=== PATIENT | male | born 1945 | race Caucasian/White ===

== ENCOUNTER → 2018-04-05 12:44 | Outpatient (BNVA) | payer MEDICARE, BC, SELFPAY | PROVIDERS: PCP Family Medicine; Visit Provider Urology | DX: R35.0 Frequency of micturition (principal); N40.1 Benign prostatic hyperplasia with lower urinary tract symptoms | CPT/HCPCS: 99213 ==

== ENCOUNTER 2018-04-12 07:41 | Outpatient (CLI) | payer MEDICARE, BC, SELFPAY ==
[2018-04-15 10:02] LABS: PSA, Diagnostic 3.3 ng/ml (0-6.5)
== END 2018-04-12 08:01 ==
PROVIDERS: PCP Family Medicine; Visit Provider Urology
DX: N40.1 Benign prostatic hyperplasia with lower urinary tract symptoms (principal); N13.8 Other obstructive and reflux uropathy
CPT/HCPCS: 36415; 84153

== ENCOUNTER → 2019-04-11 10:15 | Outpatient (BNVA) | payer MEDICARE, BC, SELFPAY | PROVIDERS: PCP Family Medicine; Referring Provider Family Medicine; Visit Provider Urology | DX: R35.0 Frequency of micturition (principal) | CPT/HCPCS: 99213 ==

== ENCOUNTER 2019-07-15 08:40 | Outpatient (CLI) | payer MEDICARE, BC, SELFPAY ==
[2019-07-15 10:53] LABS: Calculated LDL 67 mg/dL (<100); Cholesterol 131 mg/dL (<200); HDL Cholesterol 37 mg/dL (40-60); Triglyceride 139 mg/dL (<150)
== END 2019-07-15 09:00 ==
PROVIDERS: PCP Family Medicine; Visit Provider Family Medicine
DX: E78.5 Hyperlipidemia, unspecified (principal)
CPT/HCPCS: 36415; 80061

== ENCOUNTER 2019-09-16 01:36 | Outpatient (CLI) | payer MEDICARE, BC, SELFPAY ==
--- NOTE | 2019-09-16 06:45 | DI.CTLCSR_ITS ---
EXAM: CT CHEST LUNG CANCER SCREEN CLINICAL HISTORY: The patient reportedly has a History of Smoking 30 pack years and presently smokes or has quit the past 15 years. TECHNIQUE: Imaging Protocol: Axial computed tomography images with coronal and sagittal reformatted images were created and reviewed COMPARISON: CT CTA OF ABDOMEN AND PEL from 07/30/2015 FINDINGS: Tracheobronchial tree: Patent where visualized. Mediastinum and Lynn: No dominant adenopathy or fluid collection. Calcified lymph nodes are seen in t he mediastinum suggesting prior granulomatous disease. Pulmonary parenchyma: Mild centrilobular emphysematous changes are present. Two noncalcified pulmona ry nodules are seen. The smaller measures 5 mm and is in the right upper lobe. The larger is in the right lower lobe and measures 0.6 cm. No focal consolidating infiltrates are present. Lung Nodules: See above. Pleura: No effusion or pneumothorax. Heart: The heart is not dilated. Moderate coronary artery calcifications are seen. No significant pe ricardial effusion. Aorta: Thoracic aorta non-dilated.Atherosclerosis. Upper abdomen: Unremarkable. Bones: No acute abnormality. Soft Tissues: Unremarkable. IMPRESSION: Right upper and right lower lobe pulmonary nodules. Lung RADS Cat 3 - Probably Benign: Probably benign finding(s) - short term follow-up suggested; inclu de nodules with a low likelihood of becoming a clinically active cancer. Lung-RADS 1.0 CATEGORIES: Category 0 - Prior chest CT exam(s) being located for comparison. Category 1 - Annual screening in 12 months. No nodules or definitely benign nodules. Category 2 - Annual screening in 12 months. Benign appearance. Nodules with low likelihood of becomin g active cancer. Category 3 - 6-month follow-up. Probably benign. Short-term follow-up suggested. Nodules with low lik elihood of becoming active cancer. Category 4A - 3-month follow-up and CT/PET if >8 mm in size. Suspicious finding. Findings which requi re additional testing. Category 4B - Findings which require additional testing and tissue sampling. Suspicious finding. C Added to Any of the Above - History of prior lung cancer screening. S Added to Any of the Above - Significant unexpected other finding. RADIATION DOSE DELIVERED: 78.58mGy.cm Total DLP DATA REPOSITORY: All CT scans at this facility are submitted to the National Radiology Data Registry (NRDR) Dose Index Registry (DIR) with the [employer] ([employer]). RADIATION OPTIMIZATION: All CT scans at this facility use at least one of these dose optimization te chniques: automated exposure control; mA and/or kV adjustment per patient size (includes targeted exa ms where dose is matched to clinical indication); or iterative reconstruction.
== END 2019-09-16 01:56 ==
PROVIDERS: PCP Family Medicine; Visit Provider Family Medicine
DX: Z12.2 Encounter for screening for malignant neoplasm of respiratory organs (principal); Z87.891 Personal history of nicotine dependence; J43.8 Other emphysema; R91.8 Other nonspecific abnormal finding of lung field
CPT/HCPCS: G0297

== ENCOUNTER → 2019-12-18 13:24 | Outpatient (BNVA) | payer MEDICARE, BC, SELFPAY | PROVIDERS: PCP Family Medicine; Referring Provider Family Medicine; Visit Provider Physical Therapy Assistant | DX: R69 Illness, unspecified (principal) ==

== ENCOUNTER → 2020-01-30 10:20 | Outpatient (BNVA) | payer MEDICARE, BC, SELFPAY | PROVIDERS: PCP Family Medicine; Referring Provider Family Medicine; Visit Provider Physical Therapy Assistant | DX: Z12.11 Encounter for screening for malignant neoplasm of colon (principal); Z86.010 Personal history of colon polyps; I10 Essential (primary) hypertension ==

== ENCOUNTER 2020-02-13 08:14 | Day surgery (SDC) | payer MEDICARE, BC, SELFPAY ==
[2020-02-13 08:22] VITALS: BP 149/77; PULSE 56; RESP 18; TEMP 36.6; O2SAT 95
[2020-02-13] MEDS: Lactated Ringers 1,000 ML 80 ML IV (08:55)
--- NOTE | 2020-02-13 09:54 | W.PM.DSUDISC ---
Discharge Plan Disposition Patient Disposition: HOME Condition: Good Discharge Details Reason For Visit: Colonoscopy Attending Provider: Peri Parra Primary Care Provider: Tr Hendrix Home Meds and New Rx's Prescriptions: Continued amlodipine 5 mg tablet 5 mg PO DAILY Qty: 90 RF: 3 acetaminophen [Tylenol] 325 mg tablet 325 mg PO Q6H PRNRF: 0 ibuprofen 600 MG tablet 600 mg PO TID PRNRF: 0 ketoconazole 120 ML shampoo 120 ml Topical PRN PRNRF: 0 terazosin 5 mg capsule 5 mg PO HS Qty: 90 RF: 4 atorvastatin 40 mg tablet 40 mg PO DAILY 90 Days Qty: 90 RF: 3 oxybutynin chloride 5 mg tablet extended release 24hr 5 mg PO DAILY Qty: 90 RF: 4 Discontinued polyethylene glycol 3350 17 gram/dose powder 238 g PO ONCE Qty: 238 RF: 0 bisacodyl [Dulcolax (bisacodyl)] 5 mg tablet,delayed release (DR/EC) 5 mg PO ONCE Qty: 4 RF: 0 Discharge Instructions Additional Instructions: Findings: A small rectal polyp was removed. Random biopsies were taken throughout the colon to evaluate for microscopic colitis. My office will contact you with biopsy results. Follow up: Plan for a colonoscopy in 5 years depending on biopsy results. Make sure to take in 30 grams of fiber daily. Metamucil or Benefiber are good supplements. Take with enough fluids. If the fiber does not improve your leakage, consider referral to a colorectal surgeon for further evaluation. Please call if you develop: fevers >101.5 Nausea or Vomiting Abdominal pain that is not transient DAY SURGERY UNIT POST COLONOSCOPY INSTRUCTIONS 1. Because there will be medication in your system for the next 24 hours, you may feel a little sleepy. Your coordination will be affected. Therefore: a. Do not drive or operate dangerous equipment for 24 hours. b. Do not drink alcohol beverages for 24 hours (not even beer). c. Plan to go home and rest for the day. 2. Generally there are no restrictions on your activity after a day or so has gone by, but you may feel a bit fatigued for a few days. 3 After you arrive home you may have a light meal and return to a normal diet as you can tolerate it without feeling sick to your stomach. 4. After surgery, you may feel pain or discomfort. This should be only transient, but if it persists please contact your doctor. 5. If there are any questions regarding the findings of your procedure, please feel free to contact your doctor. 6. If you are unable to contact your doctor with a problem, contact the hospital at [phone]. 7. Continue all your regular medications unless directed otherwise. I understand the above instructions and have no questions. Signature of Patient or Responsible Adult Escort Date/Time Name of Responsible Adult Escort Signature of Nurse Date/Time Activity:: Activity as Tolerated Diet:: As Tolerated Discharge Orders Discharge Orders: Discharge Order (Routine); Ordered 02/13/20 Ordered By: Peri Parra DS: Diagnosis Discharge Diagnosis (1) Rectal polyp: Status: Acute
--- NOTE | 2020-02-13 09:55 | W.COLOREPORT ---
Date of service: 02/13/20 Time of Service: 10:49 Colonoscopy Report Date of procedure: 02/13/20 Pre-op diagnosis general: History of colon polyps Post-op diagnosis procedure note: other (Diverticulosis, rectal polyp) Procedure: Colonoscopy with random biopsies and cold forceps polypectomy Surgeon: Peri Parra Anesthesia proc note operative: MAC Indications: This 74 year old man presents for colonoscopy. His prior in 2016 showed a sessile serrated adenoma. He notes stool leakage over the course of the day after a fairly normal am BM. No FH colon cancer. Procedure Description: The patient was placed in the left Maldonado position. Propofol was titrated to sedation. Digital rectal examination revealed no abnormalities. The scope was advanced to the cecum without difficulty. The ileocecal valve and appendiceal orifice were clearly identified. The prep was good. The scope was slowly withdrawn over the course of greater than 6 minutes. Random biopsies were taken throughout to evaluate for microscopic colitis. No abnormalities seen in the ascending, transverse, descending, sigmoid colon with the exception of mild diverticulosis. In the rectum 8mm polyp was removed with the cold forceps. No other abnormality was noted on retroflexed view. The internal hemorrhoids were not prominent. The patient tolerated the procedure well and was stable to recovery. Plan for colonoscopy in 5years. He was advised to increase fiber to help stool leakage. If this is not effective, can consider referral to colorectal surgery for sphincter evaluation.
--- NOTE | 2020-02-13 10:15 | BOWEL_PTH ---
PATIENT: Storm Nolasco LOC: [facility] U#:[id number] AGE/SX: 74/M ROOM: RE02/13/[address]: Peri Parra MD : 1945 BED: DIS: 02/13/2020 SPEC #: [id number] RECD: 02/13/20 11:10 STATUS: KATHLEEN REQ #: [id number] BABAK: 02/13/20 10:[address]: Peri Parra DEPT: Surgical Specimen RECD BY: Jessica Fair ENTERED: 02/13/20 11:11 SP TYPE: Bowel OTHR DR: Tr Hendrix DO Tissues: 1 - BIOPSY BOWEL 2 - BIOPSY BOWEL Procedures: GROSS AND MICRO LEVEL 4 Comments: [id number]
[2020-02-13 11:05] VITALS: BP 123/54; PULSE 46; RESP 18; TEMP 36.4; O2SAT 96
== END 2020-02-13 11:40 | disposition home or self-care (01) ==
PROVIDERS: PCP Family Medicine; Visit Provider Surgery
PROC: 0DJD8ZZ Inspection of Lower Intestinal Tract, Via Natural or Artificial Opening Endoscopic (ICD-10-PCS; CPT 45378; principal; 2020-02-13 10:00)
DX: R19.4 Change in bowel habit (principal); Z86.010 Personal history of colon polyps; K63.5 Polyp of colon; I10 Essential (primary) hypertension; K57.30 Diverticulosis of large intestine without perforation or abscess without bleeding; K62.1 Rectal polyp
CPT/HCPCS: 45380; 88305; J2001

== ENCOUNTER 2020-03-01 01:59 | Outpatient (CLI) | payer MEDICARE, BC, SELFPAY ==
--- NOTE | 2020-03-01 06:15 | DI.NM_ITS ---
APPROVED REPORT Exam: Exercise Treadmill Patient Location: Out-Patient Room/Bed: Stress Nurse: Radha Shaw RN BMI: 30.26 Baseline Rhythm: Sinus Bradycardia, LBBB Indications: New BALDERAS, LBB, AFib. Patient also reports nonradiating 3/10 left chest pressure with acti vity. Medical History Medical History: HTN, HLD, Smoking, s/p AAA repair. Cardiac Medications: ASA. Amlodipine. Atorvastatin. Allergies: Hydrochlorothiazide, Lisinopril. Cardiac Risk Factors: FHX of CAD, HTN, Hyperlipidemia, Smoking (former) Previous Cardiac Procedures: AAA repair Pretest Chest Pain Characteristics: No chest pain Exercise History: Sedentary Physical Disabilities: None. Lung Sounds: Clear to auscultation Heart Sounds: Regular Stress Test Details Test: Exercise stress testing was performed using a Amos protocol. Nuclear Acquisition: Rest Tc-99m/Stress Tc-99m 1 day Rest Isotope: Tc-99m Sestamibi. Dose: 11 Date: 03/01/2020 Injection Time: 0845 Stress Isotope: Tc-99m Sestamibi. Dose: 38 Date: 03/01/2020 Injection Time: 1012 HR Resting HR Supine: 55 bpm Max Heart Rate (APMHR): 146 bpm Resting HR Standin bpm Target HR (85% APMHR): 124 bpm Max HR Achieved: 188 bpm % of APMHR: 128 Recovery HR: 86 bpm HR response to stress: Normal HR response to stress BP Resting BP Supine: 154/80 mmHg Resting BP Standin/76 mmHg Max BP: 178/66 mmHg Recovery BP: 148/70 mmHg BP response to stress: Normal blood pressure response to stress. ECG Resting ECG: Sinus Bradycardia, LBBB Ectopy: None. Stress ECG: Sinus Tachycardia, LBBB ST Change: unable to determine. Arrhythmia: PVCs Recovery ECG: Sinus Rhythm, LBBB Recovery ST Change: unable to determine. Recovery Arrhythmia: PVCs, Trigeminy. Clinical Reason for Termination: Target HR Achieved Stress Symptoms: Dyspnea Exercise duration: 8 min35 sec Highest Stage Reached: Stage 3: 3.4 mph at 14% grade. Exercise capacity: 10.16 METs Stress ECG Conclusion 1. She exercised for 9 minutes (10 minutes). The patient had no symptoms suggestive of ischemia. 2. The patient's baseline left bundle branch block makes the EKG portion nondiagnostic. Stress Test Summary STAGE Time (mins) Speed (mph) Grade (%) HR BP SYMPTOMS METS Supine 55 154/80 Standing 56 142/76 1 3 1.7 10 103 160/72 4.6 2 6 2.5 12 130 178/64 7 1 min recovery 158 176/62 2/10 left chest pressure 3 min recovery 120 178/66 symptoms resolved 6 min recovery 90 148/70 MPI Conclusion The patient's ejection fraction was 34% with stress. There is global hypokinesis. There is a moderate sized fixed perfusion defect at the apex without any significant evidence of isch emia. It is important to note that, there is a higher false positivity rate in those with LBBB who u ndergo stress nuclear perfusion imaging as opposed to pharmacological nuclear stress imaging. This likely represents an abnormal perfusion study. Radiologist Interpretation Radiologist Interpretation by: Mayito Carney MD Interpretation Date/Time: 03/02/2020 09:18:10
== END 2020-03-01 02:19 ==
PROVIDERS: PCP Family Medicine; Visit Provider Family Medicine
DX: I44.7 Left bundle-branch block, unspecified (principal); I48.91 Unspecified atrial fibrillation; R06.09 Other forms of dyspnea; R07.89 Other chest pain; Z82.49 Family history of ischemic heart disease and other diseases of the circulatory system; I10 Essential (primary) hypertension; E78.5 Hyperlipidemia, unspecified; Z87.891 Personal history of nicotine dependence
CPT/HCPCS: 78452; 93016; 93018; 93017

== ENCOUNTER 2020-03-15 08:14 | Emergency (ER) | payer MEDICARE, BC, SELFPAY ==
[2020-03-15] VITALS (34 sets, daily range): BP systolic 133–161; BP diastolic 55–87; PULSE 51–68; RESP 13–25; TEMP 36.4–36.9; O2SAT 93–98
--- NOTE | 2020-03-15 08:15 | RT.EKG_ITS ---
APPROVED REPORT Exam: Resting ECG Patient Location: E HR:61 bpm ECG Measurements Heart Rate 61 AXIS NH 183 P 34 QRSd 164 QRS -11 QT 487 T 79 QTc 488 Conclusion Sinus rhythm...normal P axis, V-rate 60- 99 Ventricular premature complex...V complex w/ short R-R interval Left bundle branch block...QRSd>120, broad/notched R ST elevation secondary to IVCD...Multiple VCG criteria. Sinus. PVCs. LBBB, seen in previous EKG 02/23/20. I have reviewed and interpreted ECG and agree with software generated interpretation.
--- NOTE | 2020-03-15 08:22 | W.ED.GENAD ---
Discharge Plan Disposition Patient Disposition: [facility] Condition: Stable Discharge Details Clinical Impression: Crescendo angina Primary Care Provider: Tr Hendrix ED Provider: Yamini Dahl Home Meds and New Rx's Prescriptions: No Action amlodipine 5 mg tablet 5 mg PO DAILY Qty: 90 RF: 3 acetaminophen [Tylenol] 325 mg tablet 325 mg PO Q6H PRNRF: 0 aspirin 81 mg tablet,delayed release (DR/EC) 81 mg PO DAILY Qty: 90 RF: 3 nitroglycerin 0.4 mg tablet, sublingual 0.4 mg sublingual Q5M PRN (Reason: chest pain) Qty: 30 RF: 0 ibuprofen 600 MG tablet 600 mg PO TID PRNRF: 0 ketoconazole 120 ML shampoo 120 ml Topical PRN PRNRF: 0 terazosin 5 mg capsule 5 mg PO HS Qty: 90 RF: 4 oxybutynin chloride 5 mg tablet extended release 24hr 5 mg PO DAILY Qty: 90 RF: 4 atorvastatin 40 mg tablet 80 mg PO DAILY 90 Days Qty: 90 RF: 3 losartan 25 mg tablet 25 mg PO DAILY Qty: 90 RF: 3 Discharge Data Discharge Date/Time-TO BE ENTERED AT DEPARTURE: 03/15/20 11:20 Medical Decision Making 0830 -- 74-year-old male with a history of AAA repair, hypertension, hyperlipidemia and recently diagnosed left bundle branch block on EKG at PCP office last month presents for chest pressure at rest but worse with exertion x 24 hours EKG notes a rate of 61, sinus with PVCs and left bundle branch block but no acute change from previous. Patient had a myocardial perfusion scan on 03/01/2020 which noted: Stress ECG Conclusion 1. He exercised for 9 minutes (10 minutes). The patient had no symptoms suggestive of ischemia. 2. The patient's baseline left bundle branch block makes the EKG portion nondiagnostic. MPI Conclusion The patient's ejection fraction was 34% with stress. There is global hypokinesis. There is a moderate sized fixed perfusion defect at the apex without any significant evidence of ischemia. It is important to note that, there is a higher false positivity rate in those with LBBB who undergo stress nuclear perfusion imaging as opposed to pharmacological nuclear stress imaging. This likely represents an abnormal perfusion study. Appears consistent with unstable angina. Will give additional chewable aspirin and obtain a cardiac work-up. Will reach out to cardiology for further recommendations. 914 --discussed with Dr. Mcduffie whom patient has an appointment with next week. Agrees that patient is appropriate for transfer to [facility] for cardiac catheterization. Unclear if etiology is cardiac, but considering patient's age and risk factors, needs cardiac catheterization. 929 --discussed with [facility] cardiology who agrees that patient needs further evaluation and likely cardiac catheterization and accepts patient for transfer. Accepting physician Dr. Duarte. No recommendation for Plavix or heparin at this time unless patient's pain worsens, his troponin becomes elevated or he has EKG changes. May be a few hours until bed availability. 1100 --Repeat troponin negative. Repeat EKG unchanged. Patient reassessed and currently asymptomatic and chest pain-free at this time. Medical Records Medical records reviewed: Yes I reviewed the patient's medical records. Imaging Data Radiologic Study: Radiologist's impression: XR CHEST 2V PA LATERAL CLINICAL HISTORY: L sided chest pain, r/o acute disease TECHNIQUE: 2D digital imaging was performed. COMPARISON: CR CHEST 2 VIEWS PA,LAT from 02/04/2015 FINDINGS: MEDIASTINUM: Normal. HEART: Normal. PULMONARY VASCULATURE: Normal. LUNGS: Clear. PLEURAL SPACE: No pleural effusion or pneumothorax. BONE:Within normal limits for the patient's age. OTHER FINDINGS:Unchanged elevation of the right hemidiaphragm. IMPRESSION: No acute pulmonary findings. Lab Data Lab results reviewed: Yes I reviewed the patient's lab results. Labs: Laboratory Tests Range/Units 03/15/20 03/15/20 03/15/20 08:25 08:25 08:25 WBC (4.4-10.8) 10^3/uL 7.16 RBC (4.36-5.78) 10^6/uL 4.40 Hgb (13.5-17.5) g/dL 14.3 Hct (40.0-50.0) % 41.3 MCV (80-95) fL 93.9 MCH (27.0-33.0) pg 32.5 MCHC (32.0-36.0) % 34.6 RDW (11.8-14.1) % 12.5 Plt Count (130-400) 10^3/uL 172 MPV (8.0-11.0) fL 10.4 Immature Gran % 0.4 Neutrophils % 73.6 Lymphocytes % 16.8 Monocytes % 6.8 Eosinophils % 1.8 Basophils % 0.6 Nucleated RBC % % 0 Absolute Neutrophils (1.2-6.7) 10^3/uL 5.27 Absolute Lymphocytes (1.2-3.4) 10^3/uL 1.20 Absolute Monocytes (0.1-0.8) 10^3/uL 0.49 Absolute Eosinophils (0.0-0.7) 10^3/uL 0.13 Absolute Basophils (0.0-0.2) 10^3/uL 0.04 PT (9.3-11.0) sec 10.4 INR (0.9-1.1) 1.0 APTT (21.0-27.5) sec 22.7 Sodium (136-145) mmol/L 139 Potassium (3.5-5.1) mmol/L 4.4 Chloride (98-107) mmol/L 105 Carbon Dioxide (21.0-32.0) mmol/L 26.4 Anion Gap (3-11) mmol/L 7.6 BUN (7-18) mg/dL 18 Creatinine (0.70-1.30) mg/dL 1.11 Estimated GFR/1.73 m2 (mL/min/1.73m2) >= 60.00 Glucose (74-106) mg/dL 106 Calcium (8.5-10.1) mg/dL 8.7 Magnesium (1.8-2.4) mg/dL 2.2 Total Bilirubin (0.2-1.0) mg/dL 0.9 AST (15-37) U/L 35 ALT (16-63) U/L 29 Alkaline Phosphatase (46-116) U/L 73 Troponin I (<0.06) ng/mL < 0.05 Total Protein (6.4-8.2) g/dL 7.2 Albumin (3.4-5.0) g/dL 4.0 Range/Units 03/15/20 10:30 WBC (4.4-10.8) 10^3/uL RBC (4.36-5.78) 10^6/uL Hgb (13.5-17.5) g/dL Hct (40.0-50.0) % MCV (80-95) fL MCH (27.0-33.0) pg MCHC (32.0-36.0) % RDW (11.8-14.1) % Plt Count (130-400) 10^3/uL MPV (8.0-11.0) fL Immature Gran % Neutrophils % Lymphocytes % Monocytes % Eosinophils % Basophils % Nucleated RBC % % Absolute Neutrophils (1.2-6.7) 10^3/uL Absolute Lymphocytes (1.2-3.4) 10^3/uL Absolute Monocytes (0.1-0.8) 10^3/uL Absolute Eosinophils (0.0-0.7) 10^3/uL Absolute Basophils (0.0-0.2) 10^3/uL PT (9.3-11.0) sec INR (0.9-1.1) APTT (21.0-27.5) sec Sodium (136-145) mmol/L Potassium (3.5-5.1) mmol/L Chloride (98-107) mmol/L Carbon Dioxide (21.0-32.0) mmol/L Anion Gap (3-11) mmol/L BUN (7-18) mg/dL Creatinine (0.70-1.30) mg/dL Estimated GFR/1.73 m2 (mL/min/1.73m2) Glucose (74-106) mg/dL Calcium (8.5-10.1) mg/dL Magnesium (1.8-2.4) mg/dL Total Bilirubin (0.2-1.0) mg/dL AST (15-37) U/L ALT (16-63) U/L Alkaline Phosphatase (46-116) U/L Troponin I (<0.06) ng/mL < 0.05 Total Protein (6.4-8.2) g/dL Albumin (3.4-5.0) g/dL ECG Data Attestation: I personally reviewed and interpreted this ECG (s) as follows: Interpretation: #1 -- Rate of 61, sinus, PVCs, left bundle branch block which has been seen in previous EKG dated 02/23/2020. No significant change from previous EKG. #2 -- Rate of 52, sinus, LBBB, no acute ST elevation or depression. No acute change from previous EKG. HPI General Mode of arrival: ambulatory. Date/Time Provider Initiated Documentation: 03/15/20 08:16. Limitations to Documentation: no limitations. Information obtained by: patient. HPI Narrative: Patient is a 74-year-old male with a history of a [id number]-elen smoking history, quit in 2016, hypertension, hyperlipidemia, AAA repair within the last year, recently noted left bundle branch block on EKG with abnormal myocardial perfusion scan this month presents for constant left-sided chest pressure, worse with exertion of the past 24 hours. Patient states he has had intermittent chest pressure over the past 2 months that only occurred with exertion but states for the past 24 hours he has had constant left-sided chest pressure that is still worse with exertion but does not relieved completely with rest. He states when up and walking around his chest pressure is 5/10 and at rest is 1/10. He states the pain does improve over several minutes. He denies any other associated symptoms with his chest pressure such as fever, cough, nausea, vomiting, dizziness or known injury. He saw Dr. Hendrix last month for a follow-up for his high blood pressure and admitted that he had an episode of chest pressure and was referred for the outpatient stress test and started on aspirin, nitro and losartan. Patient states he took his baby aspirin this morning. He states he took 1 dose of sublingual nitro last evening without relief. He states he has an appointment with cardiology Dr. Mcduffie next Sunday regarding his stress test. Related Data Home Medications Medication Instructions Recorded Confirmed ibuprofen 600 mg PO TID PRN tab-cap 08/21/12 03/15/20 ketoconazole 120 ml TOPICAL PRN PRN script 05/25/17 03/15/20 acetaminophen 325 mg tablet 325 mg PO Q6H PRN 10/07/18 03/15/20 amlodipine 5 mg tablet 5 mg PO DAILY #90 tab 04/14/19 03/15/20 terazosin 5 mg capsule 5 mg PO HS #90 tab-cap 06/20/19 03/15/20 oxybutynin chloride 5 mg 5 mg PO DAILY #90 tab 10/21/19 03/15/20 tablet,extended release 24 hr aspirin 81 mg tablet,delayed 81 mg PO DAILY #90 tab 02/23/20 03/15/20 release nitroglycerin 0.4 mg sublingual 0.4 mg SUBLINGUAL Q5M PRN #30 tab 02/23/20 03/15/20 tablet atorvastatin 40 mg tablet 80 mg PO DAILY 90 Days #90 tab-cap 03/02/20 03/15/20 losartan 25 mg tablet 25 mg PO DAILY #90 tab 03/02/20 03/15/20 Previous Rx's Medication Instructions Recorded amlodipine 5 mg tablet 5 mg PO DAILY #90 tab 04/14/19 terazosin 5 mg capsule 5 mg PO HS #90 tab-cap 06/20/19 oxybutynin chloride 5 mg 5 mg PO DAILY #90 tab 10/21/19 tablet,extended release 24 hr aspirin 81 mg tablet,delayed 81 mg PO DAILY #90 tab 02/23/20 release nitroglycerin 0.4 mg sublingual 0.4 mg SUBLINGUAL Q5M PRN #30 tab 02/23/20 tablet atorvastatin 40 mg tablet 80 mg PO DAILY 90 Days #90 tab-cap 03/02/20 losartan 25 mg tablet 25 mg PO DAILY #90 tab 03/02/20 Allergies Allergy/AdvReac Type Severity Reaction Status Date / Time venom-honey bee Allergy Severe ANAPHALAXSI Verified 03/15/20 08:29 S hydrochlorothiazide AdvReac Unknown FELT LOUSY Verified 03/15/20 08:29 lisinopril AdvReac Unknown FELT LOUSY Verified 03/15/20 08:29 Review of Systems All systems reviewed & are unremarkable except as noted in HPI and below Constitutional Constitutional: Reports as per HPI, Denies chills and Denies fever(s) Eyes Eyes: Denies blurry vision ENT Ears, Nose, Mouth, and Throat: Denies dizziness, Denies sore throat and Denies throat swelling Cardiovascular Cardiovascular: Reports chest pain and Denies dyspnea Respiratory Respiratory: Denies cough and Denies dyspnea Gastrointestinal Gastrointestinal: Denies abdominal pain, Denies diarrhea and Denies vomiting Genitourinary Genitourinary: Denies hematuria and Denies dysuria Musculoskeletal Musculoskeletal: Denies back pain and Denies numbness Integumentary/Breasts Skin/Breast: Denies lesions and Denies rash Neurologic Neurologic: Denies dizziness, Denies localized weakness and Denies numbness Allergic/Immunologic Allergic/Immunologic: Denies throat swelling [facility] Medical History (Updated 03/15/20 @ 09:49 by Yamini Dahl DO) Ex-smoker 30+ pack year history, quit in 2016 Left bundle branch block By EKG Pulmonary nodules Low dose screen 09/16 Surgical History History of colonoscopy S/P AAA repair (05/2019) Vascular [facility] [place] Aortic and bilateral iliac artery endarterectomies Family History Mother Essential hypertension Neoplasm Lung cancer Father , Cardiac Issue at age 61. CHF (congestive heart failure) Brother Neoplasm Brother Neoplasm Social History (Updated 01/30/20 @ 11:24 by NIHARIKA Pruitt) Smoking/Tobacco Use Status: Former Tobacco Use Quit Date: 07/30/15 Tobacco: How many years used: 50 Smoking risk assessment performed?: Yes Alcohol Intake: current Alcohol Intake frequency: 0-2 drinks per day Alcohol type: wine Drug use: Occasionally Substance use type: marijuana Household members: none Housing: house Number of Children: 2 Communication Needs: Corrective Lenses current occupation: retired What is your relationship status?: Panel score (0-1 are the most socially isolated patients): 0 What type of physical activity do you participate in: irregular exercise Duration: 30-45 minutes/day Frequency: 1-2 times per week Seatbelt use: always Drive 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 or ride w/intox 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 Working smoke detector in home: Yes Carbon monox detector in home: Yes Do you feel safe at home: Yes Do you feel safe in your relationship?: Yes Exam Const General: cooperative, healthy appearing and no acute distress HENMT Head: normal to inspection Face and sinus: normal facial exam Eyes General: appearance normal, both eyes and all related structures EOM: EOM intact bilaterally Neck Neck: normal visual inspection and No submandibular swelling Lymphatic: no lymphadenopathy noted Chest Chest: normal inspection of the chest and no tenderness Resp Effort & Inspection: normal respiratory effort and able to speak in complete sentences Auscultation: clear to auscultation bilaterally Cardio Rate: regular rate Rhythm: regular rhythm GI Inspection: normal to inspection Palpation: soft, not firm, not rigid and nontender Auscultation: normal bowel sounds Male General Exam: Yes normal external exam Back/Spine/Pelvis Thoracic/Lumbar Spine: thoracic and lumbar spine normal to inspection Pelvis: no pain with anterior-posterior compression Skin General skin exam: no rashes or lesions noted Neuro General: patient alert, patient awake and patient oriented x3 Cognition: normal cognition Speech: speech normal Motor: muscle tone normal throughout Sensory Exam: no sensory deficits noted Extrem General: normal to inspection, full ROM, capillary refill normal, no calf tenderness bilaterally and no edema Psych Appearance: grossly normal Mental Status: mental status grossly normal Speech and Movement: speech and movement normal Affect: normal affect
[2020-03-15 08:40] LABS: Abs Immature Grans 0.03 10^3/uL (0.0-0.06); Absolute Basophil Count 0.04 10^3/uL (0.0-0.2); Absolute Eosinophil Count 0.13 10^3/uL (0.0-0.7); Absolute Monocyte Count 0.49 10^3/uL (0.1-0.8); Absolute Neutrophil Count 5.27 10^3/uL (1.2-6.7); Basophils % 0.6; Eosinophils % 1.8; HCT 41.3 % (40.0-50.0); HGB 14.3 g/dL (13.5-17.5); Immature Grans % 0.4; Lymphocytes % 16.8; MCH 32.5 pg (27.0-33.0); MCHC 34.6 % (32.0-36.0); MCV 93.9 fL (80-95); MPV 10.4 fL (8.0-11.0); Monocytes % 6.8; Neutrophils % 73.6; Nucleated RBC 0 %; Platelet Count 172 10^3/uL (130-400); RDW 12.5 % (11.8-14.1); RDW-SD 43.1 fL; WBC 7.16 10^3/uL (4.4-10.8)
--- NOTE | 2020-03-15 08:45 | DI.RAD_ITS ---
EXAM: XR CHEST 2V PA LATERAL CLINICAL HISTORY: L sided chest pain, r/o acute disease TECHNIQUE: 2D digital imaging was performed. COMPARISON: CR CHEST 2 VIEWS PA,LAT from 02/04/2015 FINDINGS: MEDIASTINUM: Normal. HEART: Normal. PULMONARY VASCULATURE: Normal. LUNGS: Clear. PLEURAL SPACE: No pleural effusion or pneumothorax. BONE:Within normal limits for the patient's age. OTHER FINDINGS:Unchanged elevation of the right hemidiaphragm. IMPRESSION: No acute pulmonary findings. DATA REPOSITORY: RADIATION DOSE DELIVERED:
[2020-03-15 08:55] LABS: ALT 29 U/L (16-63); AST 35 U/L (15-37); Alkaline Phosphatase 73 U/L (46-116); Anion Gap 7.6 mmol/L (3-11); BUN 18 mg/dL (7-18); Bilirubin, Total 0.9 mg/dL (0.2-1.0); CO2 26.4 mmol/L (21.0-32.0); CREATININE 1.11 mg/dL (0.70-1.30); Calcium 8.7 mg/dL (8.5-10.1); Chloride 105 mmol/L (98-107); Glucose 106 mg/dL (74-106); Magnesium 2.2 mg/dL (1.8-2.4); Potassium 4.4 mmol/L (3.5-5.1); Sodium 139 mmol/L (136-145); Total Protein 7.2 g/dL (6.4-8.2); Troponin I < 0.05 ng/mL (<0.06)
[2020-03-15 09:05] LABS: PTT Activated 22.7 sec (21.0-27.5); Prothrombin Time 10.4 sec (9.3-11.0)
[2020-03-15] MEDS: Aspirin 81 MG CHEW 243 MG CH (09:11)
[2020-03-15] MEDS: Normal Saline Flush 10 ML SYR IVP (09:12)
--- NOTE | 2020-03-15 09:45 | RT.EKG_ITS ---
APPROVED REPORT Exam: Resting ECG Patient Location: E HR:52 bpm ECG Measurements Heart Rate 52 AXIS MT 162 P 32 QRSd 159 QRS -14 QT 500 T 32 QTc 467 Conclusion Sinus bradycardia...rate< 60 Left bundle branch block...QRSd>120, broad/notched R ST elevation secondary to IVCD...Multiple VCG criteria. LBBB. No STEMI. No acute change from previous.
[2020-03-15 11:02] LABS: Troponin I < 0.05 ng/mL (<0.06)
== END 2020-03-15 11:20 | disposition short-term general hospital (02) ==
PROVIDERS: Emergency Provider Physician Assistant; PCP Family Medicine
DX: I20.0 Unstable angina (principal); I44.7 Left bundle-branch block, unspecified; Z87.891 Personal history of nicotine dependence; I10 Essential (primary) hypertension
CPT/HCPCS: 36415; 80053; 93005; 99285; 71046; 83735; 84484; 85025; 85610; 85730; 93010

== ENCOUNTER → 2020-04-02 09:06 | Outpatient (BNVA) | payer MEDICARE, BC, SELFPAY | PROVIDERS: PCP Family Medicine; Referring Provider Family Medicine; Visit Provider Internal Medicine Cardiovascular Disease | DX: I25.10 Atherosclerotic heart disease of native coronary artery without angina pectoris (principal); I44.7 Left bundle-branch block, unspecified; I10 Essential (primary) hypertension; E78.5 Hyperlipidemia, unspecified; Z95.5 Presence of coronary angioplasty implant and graft | CPT/HCPCS: 99203; 99214 ==

== ENCOUNTER → 2020-05-11 11:20 | Outpatient (BNVA) | payer MEDICARE, BC, SELFPAY | PROVIDERS: PCP Family Medicine; Referring Provider Family Medicine; Visit Provider Nurse Practitioner Gerontology | DX: N40.1 Benign prostatic hyperplasia with lower urinary tract symptoms (principal); R35.0 Frequency of micturition | CPT/HCPCS: 99213 ==

== ENCOUNTER 2020-05-27 03:14 | Outpatient (CLI) | payer MEDICARE, BC, SELFPAY ==
[2020-05-27 09:14] LABS: Anion Gap 5.5 mmol/L (3-11); BUN 23 mg/dL (7-18); CO2 27.5 mmol/L (21.0-32.0); CREATININE 1.17 mg/dL (0.70-1.30); Calcium 8.8 mg/dL (8.5-10.1); Chloride 106 mmol/L (98-107); Glucose 97 mg/dL (74-106); Potassium 4.3 mmol/L (3.5-5.1); Sodium 139 mmol/L (136-145)
== END 2020-05-27 03:34 ==
PROVIDERS: PCP Family Medicine; Visit Provider Internal Medicine Cardiovascular Disease
DX: I50.20 Unspecified systolic (congestive) heart failure (principal)
CPT/HCPCS: 36415; 80048

== ENCOUNTER 2020-06-01 01:06 | Outpatient (CLI) | payer MEDICARE, BC, SELFPAY ==
--- NOTE | 2020-06-01 07:30 | DI.CT_ITS ---
EXAM: CT CHEST WO CLINICAL HISTORY: 6 month follow up PULMONARY NODULES, lung rads 3,R91.8 TECHNIQUE: Imaging Protocol: Axial computed tomography images with coronal and sagittal reformatted images were created and reviewed COMPARISON: CT CT CHEST LUNG CANCER SCREEN from 09/16/[address] CHEST LUNG CANCER SCREEN from 09/16/2019 FINDINGS: Tracheobronchial tree: Patent where visualized. Pulmonary parenchyma: No consolidation or dominant measurable mass. Centrilobular emphysematous biswas es are present in the lungs. Lung Nodules: There is a stable 5 mm nodule in the right upper lobe. (Series 7, image 197). The per ipheral right lower lobe nodule again measures 0.6 cm. (Series 7, image 278). No new pulmonary nodu les are present. Mediastinum and Lynn: No dominant adenopathy or fluid collection. There are calcified lymph nodes in the mediastinum consistent with prior granulomatous disease. Pleura: No effusion or pneumothorax. Heart: The heart is not dilated. Coronary artery calcification and/or stents are seen. No pericardia l effusion. Aorta: Thoracic aorta non-dilated.Atherosclerosis. Upper abdomen: Calcifications are seen in the spleen consistent with prior granulomatous disease. Soft Tissues: Unremarkable. Bones: Degenerative changes are seen in the spine. IMPRESSION: 1. Stable pulmonary nodules. 2. Centrilobular emphysema. 3. Findings of prior granulomatous disease. Lung RADS Cat 2 - Benign Appearance / Behavior: Nodules with a very low likelihood of becoming a clin ically active cancer due to size or lack of growth Lung-RADS 1.0 CATEGORIES: Category 0 - Prior chest CT exam(s) being located for comparison. Category 1 - Annual screening in 12 months. No nodules or definitely benign nodules. Category 2 - Annual screening in 12 months. Benign appearance. Nodules with low likelihood of becomin g active cancer. Category 3 - 6-month follow-up. Probably benign. Short-term follow-up suggested. Nodules with low lik elihood of becoming active cancer. Category 4A - 3-month follow-up and CT/PET if >8 mm in size. Suspicious finding. Findings which requi re additional testing. Category 4B - Findings which require additional testing and tissue sampling. Suspicious finding. C Added to Any of the Above - History of prior lung cancer screening. S Added to Any of the Above - Significant unexpected other finding. RADIATION DOSE DELIVERED: 730.56mGy.cm Total DLP 730.56mGy.cm Total DLP DATA REPOSITORY: All CT scans at this facility are submitted to the National Radiology Data Registry (NRDR) Dose Index Registry (DIR) with the [employer] (A[employer]). RADIATION OPTIMIZATION: All CT scans at this facility use at least one of these dose optimization te chniques: automated exposure control; mA and/or kV adjustment per patient size (includes targeted exa ms where dose is matched to clinical indication); or iterative reconstruction.
== END 2020-06-01 01:07 | disposition home or self-care (01) ==
LOC: DI 01:06
PROVIDERS: PCP Family Medicine; Visit Provider Family Medicine
DX: R91.8 Other nonspecific abnormal finding of lung field (principal); J43.2 Centrilobular emphysema
CPT/HCPCS: 71250

== ENCOUNTER 2020-08-27 09:00 | Outpatient (RCR) | payer MEDICARE, BC, SELFPAY | END 2020-08-27 23:59 | disposition home or self-care (01) | LOC: CR 09:00 | PROVIDERS: PCP Family Medicine; Visit Provider Family Medicine | DX: Z95.5 Presence of coronary angioplasty implant and graft (principal); Z51.89 Encounter for other specified aftercare; Z98.890 Other specified postprocedural states | CPT/HCPCS: S9472 ==

== ENCOUNTER 2020-09-14 03:26 | Outpatient (CLI) | payer MEDICARE, BC, SELFPAY ==
[2020-09-14 10:11] LABS: BUN 22 mg/dL (7-18); CREATININE 1.1 mg/dL (0.70-1.30); Calcium 8.6 mg/dL (8.5-10.1); Chloride 107 mmol/L (98-107); Glucose 110 mg/dL (74-106); Potassium 4.4 mmol/L (3.5-5.1); Sodium 143 mmol/L (136-145)
== END 2020-09-14 03:27 | disposition home or self-care (01) ==
PROVIDERS: PCP Family Medicine; Visit Provider Internal Medicine Cardiovascular Disease
DX: I50.20 Unspecified systolic (congestive) heart failure (principal)
CPT/HCPCS: 36415; 80048

== ENCOUNTER 2020-09-24 08:00 | Outpatient (RCR) | payer MEDICARE, BC, SELFPAY | END 2020-09-27 23:59 | disposition home or self-care (01) | LOC: CR 08:00 | PROVIDERS: PCP Family Medicine; Visit Provider Family Medicine | DX: Z51.89 Encounter for other specified aftercare (principal); Z95.5 Presence of coronary angioplasty implant and graft | CPT/HCPCS: S9472 ==

== ENCOUNTER 2020-10-25 08:00 | Outpatient (RCR) | payer MEDICARE, BC, SELFPAY | END 2020-10-27 23:59 | disposition home or self-care (01) | LOC: CR 08:00 | PROVIDERS: PCP Family Medicine; Visit Provider Family Medicine | DX: Z51.89 Encounter for other specified aftercare (principal); Z95.5 Presence of coronary angioplasty implant and graft | CPT/HCPCS: S9472 ==

== ENCOUNTER 2020-11-02 11:57 | Outpatient (RCR) | payer SELFPAY | END 2020-11-27 23:59 | disposition home or self-care (01) | LOC: CR 11:57 | PROVIDERS: PCP Family Medicine; Visit Provider Family Medicine | DX: Z51.89 Encounter for other specified aftercare (principal); Z95.5 Presence of coronary angioplasty implant and graft ==

== ENCOUNTER 2020-11-23 09:00 | Outpatient (RCR) | payer MEDICARE, BC, SELFPAY ==
[2020-11-02 08:58] VITALS: BP 149/79; PULSE 49; O2SAT 97
[2020-11-18 09:16] VITALS: BP 145/61; PULSE 51
[2020-11-23 09:03] VITALS: BP 115/58; PULSE 50
== END 2020-11-27 23:59 | disposition home or self-care (01) ==
LOC: CR 09:00
PROVIDERS: PCP Family Medicine; Visit Provider Family Medicine
DX: Z51.89 Encounter for other specified aftercare (principal); Z95.5 Presence of coronary angioplasty implant and graft
CPT/HCPCS: S9472

== ENCOUNTER 2020-12-28 09:00 | Outpatient (RCR) | payer SELFPAY ==
[2020-11-28 00:22] VITALS: BP 115/58; PULSE 50
[2020-11-30 09:07] VITALS: BP 118/72; PULSE 50
[2020-12-07 08:59] VITALS: BP 127/58; PULSE 47
[2020-12-09 08:55] VITALS: BP 137/52; PULSE 56
[2020-12-14 09:32] VITALS: BP 127/74; PULSE 49
[2020-12-16 09:06] VITALS: BP 142/60; PULSE 68
[2020-12-21 09:23] VITALS: BP 121/71; PULSE 51
[2020-12-23 09:00] VITALS: BP 123/37; PULSE 58
[2020-12-28 09:09] VITALS: BP 136/61; PULSE 51
== END 2020-12-28 23:59 | disposition home or self-care (01) ==
LOC: CR 09:00
PROVIDERS: PCP Family Medicine; Visit Provider Family Medicine
DX: Z51.89 Encounter for other specified aftercare (principal)

== ENCOUNTER 2021-01-27 09:00 | Outpatient (RCR) | payer SELFPAY ==
[2020-12-29 00:22] VITALS: BP 136/61; PULSE 51
[2020-12-30 10:17] VITALS: BP 145/69; PULSE 54
[2021-01-11 08:56] VITALS: BP 121/62; PULSE 50
[2021-01-13 10:02] VITALS: BP 111/50; PULSE 63
[2021-01-18 08:58] VITALS: BP 131/64; PULSE 50
[2021-01-25 09:07] VITALS: BP 138/66; PULSE 57
[2021-01-27 08:52] VITALS: BP 143/67; PULSE 51
[2021-02-01 08:49] VITALS: BP 127/60; PULSE 51
== END 2021-01-27 23:59 | disposition home or self-care (01) ==
LOC: CR 09:00
PROVIDERS: PCP Family Medicine; Visit Provider Family Medicine
DX: Z51.89 Encounter for other specified aftercare (principal)

== ENCOUNTER 2021-02-22 03:32 | Outpatient (CLI) | payer MEDICARE, BC, SELFPAY ==
[2021-02-22 09:44] LABS: Anion Gap 6.1 mmol/L (3-11); BUN 21 mg/dL (7-18); CO2 29.9 mmol/L (21.0-32.0); CREATININE 1.1 mg/dL (0.70-1.30); Calcium 8.6 mg/dL (8.5-10.1); Chloride 107 mmol/L (98-107); Glucose 95 mg/dL (74-106); Potassium 4.6 mmol/L (3.5-5.1); Sodium 143 mmol/L (136-145)
[2021-02-23 13:47] LABS: HIV-1/2 Ag & Ab Screen Negative (Negative)
[2021-02-23 14:13] LABS: Hepatitis C Ab w Rflx HCV PCR Negative (Negative)
== END 2021-02-22 03:33 | disposition home or self-care (01) ==
LOC: LBO 03:32
PROVIDERS: PCP Family Medicine; Visit Provider Family Medicine
DX: I10 Essential (primary) hypertension (principal); Z11.3 Encounter for screening for infections with a predominantly sexual mode of transmission; Z11.4 Encounter for screening for human immunodeficiency virus [HIV]; Z11.59 Encounter for screening for other viral diseases; I50.20 Unspecified systolic (congestive) heart failure
CPT/HCPCS: 36415; 80048; 86803; 87389

== ENCOUNTER 2021-02-24 08:50 | Outpatient (RCR) | payer SELFPAY ==
[2021-01-28 00:26] VITALS: BP 143/67; PULSE 51
[2021-02-03 08:59] VITALS: BP 148/85; PULSE 51
[2021-02-08 09:46] VITALS: BP 135/74; PULSE 70
[2021-02-10 09:23] VITALS: BP 135/66; PULSE 72
[2021-02-15 08:50] VITALS: BP 159/78; PULSE 68
[2021-02-17 08:46] VITALS: BP 146/76; PULSE 54
[2021-02-22 09:11] VITALS: BP 113/66; PULSE 47
[2021-02-24 08:50] VITALS: BP 148/64; PULSE 80
== END 2021-02-27 23:59 | disposition home or self-care (01) ==
LOC: CR 08:50
PROVIDERS: PCP Family Medicine; Visit Provider Family Medicine
DX: Z51.89 Encounter for other specified aftercare (principal); R69 Illness, unspecified

== ENCOUNTER 2021-03-29 09:00 | Outpatient (RCR) | payer SELFPAY ==
[2021-02-28 00:26] VITALS: BP 148/64; PULSE 80
[2021-03-01 09:05] VITALS: BP 124/62; PULSE 56
[2021-03-03 08:45] VITALS: BP 145/70; PULSE 51
[2021-03-08 09:08] VITALS: BP 127/70; PULSE 60
[2021-03-10 11:01] VITALS: BP 141/68; PULSE 53
[2021-03-17 08:48] VITALS: BP 137/58; PULSE 51
[2021-03-22 09:04] VITALS: BP 133/62; PULSE 65
[2021-03-29 09:23] VITALS: BP 126/68; PULSE 52
== END 2021-03-29 23:59 | disposition home or self-care (01) ==
LOC: CR 09:00
PROVIDERS: PCP Family Medicine; Visit Provider Family Medicine
DX: Z51.89 Encounter for other specified aftercare (principal)

== ENCOUNTER 2021-04-28 09:00 | Outpatient (RCR) | payer SELFPAY ==
[2021-03-30 00:21] VITALS: BP 126/68; PULSE 52
[2021-03-31 08:57] VITALS: BP 133/74; PULSE 52
[2021-04-05 10:32] VITALS: BP 134/72; PULSE 87
[2021-04-07 08:45] VITALS: BP 142/78; PULSE 54
[2021-04-12 09:01] VITALS: BP 109/47; PULSE 59
[2021-04-14 09:28] VITALS: BP 113/57; PULSE 54
[2021-04-19 08:45] VITALS: BP 136/67; PULSE 59
[2021-04-21 08:53] VITALS: BP 133/71; PULSE 52
[2021-04-21 13:53] VITALS: BP 148/84; PULSE 60
[2021-04-26 09:01] VITALS: BP 120/62; PULSE 56
[2021-04-28 08:59] VITALS: BP 116/63; PULSE 61
== END 2021-04-29 23:59 | disposition home or self-care (01) ==
LOC: CR 09:00
PROVIDERS: PCP Family Medicine; Visit Provider Family Medicine
DX: Z51.89 Encounter for other specified aftercare (principal); R69 Illness, unspecified

== ENCOUNTER 2021-05-02 15:11 | Outpatient (RCR) | payer SELFPAY ==
[2021-04-30 00:09] VITALS: BP 116/63; PULSE 61
== END 2021-05-30 23:59 | disposition home or self-care (01) ==
LOC: CR 15:11
PROVIDERS: PCP Family Medicine; Visit Provider Family Medicine
DX: R69 Illness, unspecified (principal)

== ENCOUNTER 2021-06-28 05:38 | Outpatient (RCR) | payer SELFPAY | END 2021-07-28 23:59 | disposition home or self-care (01) | LOC: CR 05:38 | PROVIDERS: PCP Family Medicine; Visit Provider Family Medicine | DX: R69 Illness, unspecified (principal) ==

== ENCOUNTER 2021-07-19 01:18 | Outpatient (CLI) | payer MEDICARE, BC, SELFPAY ==
--- NOTE | 2021-07-19 07:54 | DI.CTLCSR_ITS ---
Exam(s) CT CHEST LUNG CANCER SCREEN EXAM: CT CHEST LUNG CANCER SCREEN CLINICAL HISTORY: Screening for lung cancer,former smoker, z87.891 TECHNIQUE: Imaging Protocol: Axial computed tomography images with coronal and sagittal reformatted images were created and reviewed COMPARISON: CT CT CHEST WO from 06/01/2020 FINDINGS: Tracheobronchial tree: Patent where visualized. No bronchiectasis or mucus plugging. Mediastinum and Lynn: No dominant adenopathy or fluid collection. Pulmonary parenchyma: No consolidation or dominant measurable mass. Centrilobular emphysema at the ap ices, mild. Focal area emphysematous changes in the posterior right lower lobe. No right lower lobe nodule is seen in this area on the current exam. Lung Nodules: Stable 5 millimeter diameter nodule right upper lobe. Pleura: No effusion or pneumothorax. Heart: The heart is not dilated. coronary artery calcifications are seen. Aorta: Thoracic aorta non-dilated. Mild atherosclerotic changes. Upper abdomen: Unremarkable. Bones: Degenerative changes. Soft Tissues: Unremarkable. IMPRESSION: Stable 5 millimeter right upper lobe nodule. Previously mentioned nodule in the posterior right lowe r lobe not seen on the current exam. No new nodules. Lung RADS Cat 2 - Benign Appearance / Behavior: Nodules with a very low likelihood of becoming a clin ically active cancer due to size or lack of growth Lung-RADS 1.0 CATEGORIES: Category 0 - Prior chest CT exam(s) being located for comparison. Category 1 - Annual screening in 12 months. No nodules or definitely benign nodules. Category 2 - Annual screening in 12 months. Benign appearance. Nodules with low likelihood of becomin g active cancer. Category 3 - 6-month follow-up. Probably benign. Short-term follow-up suggested. Nodules with low lik elihood of becoming active cancer. Category 4A - 3-month follow-up and CT/PET if >8 mm in size. Suspicious finding. Findings which requi re additional testing. Category 4B - Findings which require additional testing and tissue sampling. Category 4X - Category 3 or 4 nodules with additional features or imaging findings that increases the suspicion of malignancy. Modifier S- Potentially clinically significant findings (non lung cancer) RADIATION DOSE DELIVERED: 105.79mGy.cm Total DLP 2.21mGy CTDIvol DATA REPOSITORY: All CT scans at this facility are submitted to the National Radiology Data Registry (NRDR) Dose Index Registry (DIR) with the [employer] (ACR). RADIATION OPTIMIZATION: All CT scans at this facility use at least one of these dose optimization te chniques: automated exposure control; mA and/or kV adjustment per patient size (includes targeted exa ms where dose is matched to clinical indication); or iterative reconstruction.
== END 2021-07-19 01:38 ==
PROVIDERS: PCP Family Medicine; Visit Provider Family Medicine
DX: Z87.891 Personal history of nicotine dependence (principal); Z12.2 Encounter for screening for malignant neoplasm of respiratory organs; R91.1 Solitary pulmonary nodule
CPT/HCPCS: 71271

== ENCOUNTER 2021-07-26 02:55 | Outpatient (CLI) | payer MEDICARE, BC, SELFPAY ==
[2021-07-26 10:31] LABS: Calculated LDL 61 mg/dL (<100); Cholesterol 127 mg/dL (<200); HDL Cholesterol 43 mg/dL (40-60); Triglyceride 117 mg/dL (<150)
== END 2021-07-26 02:56 | disposition home or self-care (01) ==
LOC: LBO 02:55
PROVIDERS: Visit Provider Family Medicine
DX: I25.10 Atherosclerotic heart disease of native coronary artery without angina pectoris (principal)
CPT/HCPCS: 36415; 80061

== ENCOUNTER 2021-08-25 09:00 | Outpatient (RCR) | payer SELFPAY ==
[2021-08-09 09:16] VITALS: BP 110/60; PULSE 54
[2021-08-11 08:52] VITALS: BP 129/60; PULSE 52
[2021-08-18 09:49] VITALS: BP 121/59; PULSE 67; O2SAT 97
[2021-08-23 08:57] VITALS: BP 127/60; PULSE 56
[2021-08-25 10:22] VITALS: BP 123/58; PULSE 52
== END 2021-08-27 23:59 | disposition home or self-care (01) ==
LOC: CR 09:00
PROVIDERS: PCP Family Medicine; Visit Provider Internal Medicine Cardiovascular Disease
DX: R69 Illness, unspecified (principal)

== ENCOUNTER 2021-08-28 01:13 | Outpatient (RCR) | payer SELFPAY ==
[2021-08-28 00:16] VITALS: BP 123/58; PULSE 52
== END 2021-09-27 23:59 | disposition home or self-care (01) ==
LOC: CR 01:13
PROVIDERS: PCP Family Medicine; Visit Provider Internal Medicine Cardiovascular Disease
DX: R69 Illness, unspecified (principal)

== ENCOUNTER 2021-10-27 15:06 | Outpatient (RCR) | payer SELFPAY ==
[2021-09-28 00:15] VITALS: BP 123/58; PULSE 52
[2021-10-04 08:55] VITALS: BP 120/62; PULSE 57
[2021-10-11 09:27] VITALS: BP 108/56; PULSE 69
[2021-10-13 08:59] VITALS: BP 126/59; PULSE 65
[2021-10-18 09:03] VITALS: BP 106/59; PULSE 54
[2021-10-20 08:48] VITALS: BP 127/56; PULSE 47
[2021-10-25 09:28] VITALS: BP 112/57; PULSE 58
[2021-10-27 09:54] VITALS: BP 124/60; PULSE 52
== END 2021-10-27 23:59 | disposition home or self-care (01) ==
LOC: CR 15:06
PROVIDERS: PCP Family Medicine; Visit Provider Internal Medicine Cardiovascular Disease
DX: R69 Illness, unspecified (principal)

== ENCOUNTER 2021-11-24 08:46 | Outpatient (RCR) | payer SELFPAY ==
[2021-11-01 09:18] VITALS: BP 110/48; PULSE 80
[2021-11-03 09:11] VITALS: BP 128/61; PULSE 54
[2021-11-08 08:47] VITALS: BP 110/65; PULSE 56
[2021-11-15 08:47] VITALS: BP 115/57; PULSE 61
[2021-11-17 08:55] VITALS: BP 126/60; PULSE 52
[2021-11-22 10:06] VITALS: BP 138/65; PULSE 47
[2021-11-24 08:46] VITALS: BP 111/66; PULSE 54
== END 2021-11-27 23:59 | disposition home or self-care (01) ==
LOC: CR 08:46
PROVIDERS: PCP Family Medicine; Visit Provider Internal Medicine Cardiovascular Disease
DX: R69 Illness, unspecified (principal)

== ENCOUNTER → 2021-12-23 15:07 | Outpatient (CLI) | payer MEDICARE, BC, SELFPAY ==
--- NOTE | 2021-12-23 10:44 | DI.RAD_ITS ---
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 TECHNIQUE: 2D digital imaging was performed. COMPARISON: No exams were available for comparison FINDINGS: Two views No evidence pelvic nor hip fracture. No hip joint space narrowing. On the lateral view of the right hip there are no osteophytes nor bony excrescence at the femoral neck level. There is evidence of previous surgery in the pelvis and right inguinal hernia surgery. There is mult ilevel disc space narrowing in the visualized mid-lower lumbar spine. Sacroiliac joints appear unrem arkable. IMPRESSION: DATA REPOSITORY: RADIATION DOSE DELIVERED:
== END ==
PROVIDERS: PCP Family Medicine; Visit Provider Family Medicine
DX: M16.10 Unilateral primary osteoarthritis, unspecified hip (principal); M25.551 Pain in right hip
CPT/HCPCS: 73502

== ENCOUNTER 2021-12-27 09:00 | Outpatient (RCR) | payer SELFPAY ==
[2021-11-28 00:15] VITALS: BP 111/66; PULSE 54
[2021-12-08 09:16] VITALS: BP 112/71; PULSE 82
[2021-12-13 08:46] VITALS: BP 118/61; PULSE 56
[2021-12-15 08:46] VITALS: BP 114/65; PULSE 59
[2021-12-20 08:49] VITALS: BP 120/58; PULSE 58
[2021-12-22 08:55] VITALS: BP 132/61; PULSE 57
[2021-12-27 08:40] VITALS: BP 108/54; PULSE 37
--- NOTE | 2021-12-27 08:45 | RT.EKG_ITS ---
APPROVED REPORT Exam: Resting ECG Reason for Exam: bradycardia by palpation Patient Location: O HR:52 bpm ECG Measurements Heart Rate 52 AXIS MT 186 P 20 QRSd 149 QRS 22 QT 428 T 79 QTc 398 Conclusion Sinus rhythm...normal P axis, V-rate 50- 99 Atrial premature complexes...SV complexes w/ short R-R intvls Left bundle branch block...QRSd>120, broad/notched R
== END 2021-12-28 23:59 | disposition home or self-care (01) ==
LOC: CR 09:00
PROVIDERS: PCP Family Medicine; Visit Provider Internal Medicine Cardiovascular Disease
DX: R69 Illness, unspecified (principal)

== ENCOUNTER → 2022-01-06 00:38 | Outpatient (CLI) | payer MEDICARE, BC, SELFPAY ==
--- NOTE | 2022-01-06 07:45 | DI.MRI_ITS ---
Exam(s) MR LOWER JOINT RT WO EXAM: MR LOWER JOINT RT WO CLINICAL HISTORY: Hip pain without obvious xray findings,arthritis, m16.10 TECHNIQUE: Multiplanar multisequence MRI of hip was performed COMPARISON: CR XR HIP RT COMPLETE AP PELVIS from 12/23/2021 FINDINGS: Bones: There is no evidence of a fracture or avascular necrosis. No significant joint effusion or l abral injury is present. No bone marrow edema is seen. The SI joints and symphysis pubis are well jerry ntained. Musculotendinous structures: There is hyperintense signal seen in the gluteus medius tendon at its i nsertion onto the greater trochanter. There is fluid in this region and a partial tear is suspected. Intrapelvic structures: There is diverticulosis seen in the sigmoid colon. There is an enlarged pros wisdom gland. IMPRESSION: Delete S medius tendinosis with findings suggestive of a partial tear at its insertion. DATA REPOSITORY:
== END ==
PROVIDERS: PCP Family Medicine; Visit Provider Family Medicine
DX: M16.11 Unilateral primary osteoarthritis, right hip (principal); M76.01 Gluteal tendinitis, right hip
CPT/HCPCS: 73721

== ENCOUNTER 2022-01-26 08:49 | Outpatient (RCR) | payer SELFPAY ==
[2021-12-29 00:06] VITALS: BP 108/54; PULSE 37
[2021-12-29 09:04] VITALS: BP 116/56; PULSE 53
[2022-01-05 08:56] VITALS: BP 117/57; PULSE 51
[2022-01-12 08:49] VITALS: BP 135/85; PULSE 72
[2022-01-17 08:51] VITALS: BP 97/63; PULSE 62
[2022-01-24 08:51] VITALS: BP 117/57; PULSE 58
[2022-01-26 08:49] VITALS: BP 141/64; PULSE 53
== END 2022-01-27 23:59 | disposition home or self-care (01) ==
LOC: CR 08:49
PROVIDERS: PCP Family Medicine; Visit Provider Internal Medicine Cardiovascular Disease
DX: R69 Illness, unspecified (principal)

== ENCOUNTER 2022-02-23 08:44 | Outpatient (RCR) | payer SELFPAY ==
[2022-01-28 00:18] VITALS: BP 141/64; PULSE 53
[2022-01-31 08:41] VITALS: BP 134/66; PULSE 61
[2022-02-07 08:44] VITALS: BP 107/61; PULSE 55
[2022-02-09 09:28] VITALS: BP 108/52; PULSE 43
[2022-02-14 08:42] VITALS: BP 125/59; PULSE 56
[2022-02-21 08:48] VITALS: BP 110/59; PULSE 53
[2022-02-23 08:42] VITALS: BP 124/63; PULSE 51
== END 2022-02-27 23:59 | disposition home or self-care (01) ==
LOC: CR 08:44
PROVIDERS: PCP Family Medicine; Visit Provider Internal Medicine Cardiovascular Disease
DX: R69 Illness, unspecified (principal)
CPT/HCPCS: S9472

== ENCOUNTER 2022-03-21 08:49 | Outpatient (RCR) | payer SELFPAY ==
[2022-02-28 00:19] VITALS: BP 124/63; PULSE 51
[2022-03-02 09:04] VITALS: BP 101/59; PULSE 55
[2022-03-07 08:43] VITALS: BP 115/53; PULSE 48
[2022-03-09 08:44] VITALS: BP 133/64; PULSE 56
[2022-03-14 08:58] VITALS: BP 118/60; PULSE 49
[2022-03-16 08:45] VITALS: BP 139/59; PULSE 50
[2022-03-21 08:44] VITALS: BP 140/58; PULSE 50
== END 2022-03-29 23:59 | disposition home or self-care (01) ==
LOC: CR 08:49
PROVIDERS: PCP Family Medicine; Visit Provider Internal Medicine Cardiovascular Disease
DX: R69 Illness, unspecified (principal)

== ENCOUNTER 2022-04-27 08:29 | Outpatient (RCR) | payer SELFPAY ==
[2022-03-30 00:19] VITALS: BP 140/58; PULSE 50
[2022-04-04 10:09] VITALS: BP 128/70; PULSE 66
[2022-04-06 09:00] VITALS: BP 122/51; PULSE 66
[2022-04-11 08:32] VITALS: BP 130/62; PULSE 52
[2022-04-13 08:38] VITALS: BP 112/56; PULSE 55
[2022-04-20 09:23] VITALS: BP 121/57; PULSE 48
[2022-04-25 08:36] VITALS: BP 118/58; PULSE 56
[2022-04-27 08:46] VITALS: BP 109/61; PULSE 50
== END 2022-04-29 23:59 | disposition home or self-care (01) ==
LOC: CR 08:29
PROVIDERS: PCP Family Medicine; Visit Provider Internal Medicine Cardiovascular Disease
DX: R69 Illness, unspecified (principal)

== ENCOUNTER 2022-05-30 08:41 | Outpatient (RCR) | payer SELFPAY ==
[2022-04-30 00:10] VITALS: BP 109/61; PULSE 50
[2022-05-02 09:04] VITALS: BP 132/59; PULSE 54
[2022-05-04 08:28] VITALS: BP 125/56; PULSE 51
[2022-05-09 08:32] VITALS: BP 112/58; PULSE 73
[2022-05-11 09:33] VITALS: BP 103/59; PULSE 64
[2022-05-16 09:00] VITALS: BP 121/59; PULSE 50
[2022-05-23 08:32] VITALS: BP 113/55; PULSE 58
[2022-05-30 09:26] VITALS: BP 109/52; PULSE 56
== END 2022-05-30 23:59 | disposition home or self-care (01) ==
LOC: CR 08:41
PROVIDERS: PCP Family Medicine; Visit Provider Internal Medicine Cardiovascular Disease
DX: R69 Illness, unspecified (principal)

== ENCOUNTER 2022-07-27 08:05 | Outpatient (RCR) | payer SELFPAY ==
[2022-06-28 00:17] VITALS: BP 115/52; PULSE 59
[2022-06-29 08:21] VITALS: BP 97/55; PULSE 53
[2022-07-04 08:14] VITALS: BP 114/56; PULSE 58
[2022-07-06 08:32] VITALS: BP 119/59; PULSE 59
[2022-07-11 08:26] VITALS: BP 115/59; PULSE 70
[2022-07-13 08:06] VITALS: BP 120/55
[2022-07-18 08:09] VITALS: BP 115/66; PULSE 51
[2022-07-20 09:09] VITALS: BP 109/56; PULSE 58
[2022-07-25 08:44] VITALS: BP 113/57; PULSE 52
[2022-07-27 08:07] VITALS: BP 115/59; PULSE 79
[2022-08-01 07:59] VITALS: BP 105/50; PULSE 43
== END 2022-07-28 23:59 | disposition home or self-care (01) ==
LOC: CR 08:05
PROVIDERS: PCP Family Medicine; Visit Provider Internal Medicine Cardiovascular Disease

== ENCOUNTER 2022-08-02 01:33 | Outpatient (CLI) | payer MEDICARE, BC, SELFPAY ==
--- NOTE | 2022-08-02 08:00 | DI.CTLCSR_ITS ---
Exam(s) CT CHEST LUNG CANCER SCREEN EXAM: CT CHEST LUNG CANCER SCREEN CLINICAL HISTORY: Screening for lung cancer,former smoker, z87.891 TECHNIQUE: Imaging Protocol: Axial computed tomography images with coronal and sagittal reformatted images were created and reviewed. Low dose screening protocol. COMPARISON: CT CT CHEST LUNG CANCER SCREEN from 07/19/2021 FINDINGS: Tracheobronchial tree: No bronchiectasis or mucus plugging.. Mediastinum and Lynn: No dominant adenopathy or fluid collection. Pulmonary parenchyma: No consolidation or dominant measurable mass. [id number] emphysematous ch anges upper lobes, right greater than left. Focal emphysematous changes again noted posteriorly in t he right lower lobe.. Lung Nodules: Stable 5 millimeter nodule right upper lobe. No new nodules. Pleura: No effusion. No pneumothorax. Heart: The heart is not dilated. Moderate coronary artery calcifications are seen. Aorta: Thoracic aorta non-dilated. Upper abdomen: Unremarkable. Bones: Unremarkable for age. Soft Tissues: Unremarkable. IMPRESSION: Stable 5 millimeter nodule right upper lobe. No new nodules. Lung RADS Cat 2 - Benign Appearance / Behavior: Nodules with a very low likelihood of becoming a clin ically active cancer due to size or lack of growth Lung-RADS 1.0 CATEGORIES: Category 0 - Prior chest CT exam(s) being located for comparison. Category 1 - Annual screening in 12 months. No nodules or definitely benign nodules. Category 2 - Annual screening in 12 months. Benign appearance. Nodules with low likelihood of becomin g active cancer. Category 3 - 6-month follow-up. Probably benign. Short-term follow-up suggested. Nodules with low lik elihood of becoming active cancer. Category 4A - 3-month follow-up and CT/PET if >8 mm in size. Suspicious finding. Findings which requi re additional testing. Category 4B - Findings which require additional testing and tissue sampling. Category 4X - Category 3 or 4 nodules with additional features or imaging findings that increases the suspicion of malignancy. Modifier S- Potentially clinically significant findings (non lung cancer) RADIATION DOSE DELIVERED: 82.91mGy.cm Total DLP DATA REPOSITORY: All CT scans at this facility are submitted to the National Radiology Data Registry (NRDR) Dose Index Registry (DIR) with the [employer] (ACR). RADIATION OPTIMIZATION: All CT scans at this facility use at least one of these dose optimization te karen: automated exposure control; mA and/or kV adjustment per patient size (includes targeted exa ms where dose is matched to clinical indication); or iterative reconstruction.
== END 2022-08-02 01:53 ==
LOC: DI 01:33
PROVIDERS: PCP Family Medicine; Visit Provider Family Medicine
DX: Z12.2 Encounter for screening for malignant neoplasm of respiratory organs (principal); Z87.891 Personal history of nicotine dependence; J43.8 Other emphysema; R91.1 Solitary pulmonary nodule
CPT/HCPCS: 71271

== ENCOUNTER 2022-08-24 08:08 | Outpatient (RCR) | payer SELFPAY ==
[2022-07-29 00:09] VITALS: BP 115/59; PULSE 79
[2022-08-03 08:04] VITALS: BP 118/67; PULSE 55
[2022-08-08 08:06] VITALS: BP 110/52; PULSE 56
[2022-08-10 08:42] VITALS: BP 99/52; PULSE 53
[2022-08-15 08:03] VITALS: BP 103/55; PULSE 47
[2022-08-22 08:22] VITALS: BP 138/72; PULSE 45
[2022-08-24 08:11] VITALS: BP 106/51; PULSE 55
== END 2022-08-27 23:59 | disposition home or self-care (01) ==
LOC: CR 08:08
PROVIDERS: PCP Family Medicine; Visit Provider Internal Medicine Cardiovascular Disease
DX: R69 Illness, unspecified (principal)

== ENCOUNTER 2022-09-19 08:51 | Outpatient (RCR) | payer SELFPAY ==
[2022-08-28 00:05] VITALS: BP 106/51; PULSE 55
[2022-08-29 08:11] VITALS: BP 109/53; PULSE 49
[2022-08-31 09:13] VITALS: BP 117/58; PULSE 58
[2022-09-05 09:14] VITALS: BP 109/59; PULSE 52
[2022-09-07 08:44] VITALS: BP 108/59; PULSE 52
[2022-09-12 09:03] VITALS: BP 114/56; PULSE 61
[2022-09-14 08:56] VITALS: BP 114/55; PULSE 51
[2022-09-19 08:53] VITALS: BP 109/58; PULSE 48
== END 2022-09-27 23:59 | disposition home or self-care (01) ==
LOC: CR 08:51
PROVIDERS: PCP Family Medicine; Visit Provider Internal Medicine Cardiovascular Disease

== ENCOUNTER 2022-10-26 09:20 | Outpatient (RCR) | payer SELFPAY ==
[2022-09-28 00:14] VITALS: BP 109/58; PULSE 48
[2022-09-28 09:10] VITALS: BP 104/66; PULSE 85
[2022-10-03 09:16] VITALS: BP 126/58; PULSE 48
[2022-10-10 08:58] VITALS: BP 120/61; PULSE 48
[2022-10-17 09:14] VITALS: BP 124/70; PULSE 64
[2022-10-24 09:19] VITALS: BP 110/58; PULSE 52
--- NOTE | 2022-10-26 08:45 | RT.EKG_ITS ---
APPROVED REPORT Exam: Resting ECG Reason for Exam: bradycardia, hypotension Patient Location: O HR:46 bpm ECG Measurements Heart Rate 46 AXIS KS 190 P 26 QRSd 152 QRS -7 QT 472 T 59 QTc 413 Conclusion Sinus rhythm...normal P axis, V-rate 50- 99 Atrial premature complexes...SV complexes w/ short R-R intvls Left bundle branch block...QRSd>120, broad/notched R
[2022-10-26 09:06] VITALS: BP 90/45; PULSE 36
== END 2022-10-27 23:59 | disposition home or self-care (01) ==
LOC: CR 09:20
PROVIDERS: PCP Family Medicine; Visit Provider Internal Medicine Cardiovascular Disease
DX: R69 Illness, unspecified (principal)

== ENCOUNTER 2022-11-23 08:45 | Outpatient (RCR) | payer SELFPAY ==
[2022-10-28 00:17] VITALS: BP 90/45; PULSE 36
[2022-11-02 08:54] VITALS: BP 112/50; PULSE 40
[2022-11-07 09:31] VITALS: BP 103/54; PULSE 35
[2022-11-09 09:32] VITALS: BP 105/56; PULSE 38
[2022-11-16 09:18] VITALS: BP 110/65; PULSE 41
[2022-11-21 09:17] VITALS: BP 114/54; PULSE 50
[2022-11-23 08:52] VITALS: BP 109/57; PULSE 39
== END 2022-11-27 23:59 | disposition home or self-care (01) ==
LOC: CR 08:45
PROVIDERS: PCP Family Medicine; Visit Provider Internal Medicine Cardiovascular Disease
DX: R69 Illness, unspecified (principal)

== ENCOUNTER 2022-12-14 14:26 | Outpatient (CLI) | payer MEDICARE, BC, SELFPAY ==
[2022-12-14 18:57] LABS: PSA, Diagnostic 2.2 ng/mL (<=6.5)
== END 2022-12-14 14:27 | disposition home or self-care (01) ==
LOC: LBO 14:26
PROVIDERS: PCP Family Medicine; Visit Provider Nurse Practitioner Gerontology
DX: N40.1 Benign prostatic hyperplasia with lower urinary tract symptoms (principal)
CPT/HCPCS: 36415; 84153

== ENCOUNTER → 2022-12-27 07:50 | Outpatient (BNVA) | payer MEDICARE, BC, SELFPAY | PROVIDERS: PCP Family Medicine; Referring Provider Family Medicine; Visit Provider Nurse Practitioner Gerontology | DX: N40.1 Benign prostatic hyperplasia with lower urinary tract symptoms (principal); R39.89 Other symptoms and signs involving the genitourinary system; N32.81 Overactive bladder; I10 Essential (primary) hypertension | CPT/HCPCS: 51798; 99213 ==

== ENCOUNTER 2022-12-28 09:07 | Outpatient (RCR) | payer SELFPAY ==
[2022-11-28 00:06] VITALS: BP 109/57; PULSE 39
[2022-11-28 08:45] VITALS: BP 126/58; PULSE 48
[2022-11-30 08:40] VITALS: BP 114/60; PULSE 46
[2022-12-07 09:20] VITALS: BP 107/54; PULSE 79
[2022-12-12 09:33] VITALS: BP 103/59; PULSE 76
[2022-12-14 09:15] VITALS: BP 116/79; PULSE 89
[2022-12-19 08:48] VITALS: BP 113/59; PULSE 60
[2022-12-21 09:15] VITALS: BP 124/60; PULSE 68
[2022-12-26 09:36] VITALS: BP 112/58; PULSE 66
[2022-12-28 09:24] VITALS: BP 100/61; PULSE 64
== END 2022-12-28 23:59 | disposition home or self-care (01) ==
LOC: CR 09:07
PROVIDERS: PCP Family Medicine; Visit Provider Internal Medicine Cardiovascular Disease
DX: R69 Illness, unspecified (principal)

== ENCOUNTER 2022-12-29 10:35 | Outpatient (CLI) | payer MEDICARE, BC, SELFPAY ==
--- NOTE | 2022-12-29 10:30 | RT.EKG_ITS ---
APPROVED REPORT Exam: Resting ECG Reason for Exam: cardiac evaluation Patient Location: O HR:61 bpm ECG Measurements Heart Rate 61 AXIS MN 189 P 20 QRSd 158 QRS -20 QT 474 T 88 QTc 478 Conclusion Sinus rhythm...normal P axis, V-rate 50- 99 Left bundle branch block...QRSd>120, broad/notched R
== END 2022-12-29 10:36 | disposition home or self-care (01) ==
LOC: DI.CARD 10:36
PROVIDERS: PCP Family Medicine; Visit Provider Internal Medicine Cardiovascular Disease
DX: I50.9 Heart failure, unspecified
CPT/HCPCS: 93010

== ENCOUNTER → 2022-12-29 11:13 | Outpatient (BNVA) | payer MEDICARE, BC, SELFPAY | PROVIDERS: PCP Family Medicine; Referring Provider Family Medicine; Visit Provider Internal Medicine Cardiovascular Disease | DX: I44.7 Left bundle-branch block, unspecified (principal); Z95.5 Presence of coronary angioplasty implant and graft; I25.5 Ischemic cardiomyopathy; I11.0 Hypertensive heart disease with heart failure; I25.10 Atherosclerotic heart disease of native coronary artery without angina pectoris; I50.20 Unspecified systolic (congestive) heart failure | CPT/HCPCS: 93005; 99214 ==

== ENCOUNTER 2023-01-11 14:59 | Outpatient (CLI) | payer MEDICARE, BC, SELFPAY ==
[2023-01-11 15:44] LABS: ALT 31 U/L (16-63); AST 19 U/L (15-37); Albumin 3.6 g/dL (3.4-5.0); Alkaline Phosphatase 73 U/L (46-116); Anion Gap 6.3 mmol/L (3-11); BUN 20 mg/dL (7-18); Bilirubin, Total 0.8 mg/dL (0.2-1.0); CO2 27.7 mmol/L (21.0-32.0); CREATININE 1.2 mg/dL (0.70-1.30); Calcium 8.6 mg/dL (8.5-10.1); Chloride 105 mmol/L (98-107); Estimated GFR 62.29 (mL/min/1.73m2); Glucose 94 mg/dL (74-106); Potassium 3.8 mmol/L (3.5-5.1); Sodium 139 mmol/L (136-145); Total Protein 6.5 g/dL (6.4-8.2)
== END 2023-01-11 15:00 | disposition home or self-care (01) ==
LOC: LBO 15:00
PROVIDERS: Nurse Practitioner Gerontology; PCP Family Medicine; Visit Provider Family Medicine
DX: N40.0 Benign prostatic hyperplasia without lower urinary tract symptoms (principal); N40.1 Benign prostatic hyperplasia with lower urinary tract symptoms; R35.0 Frequency of micturition; I10 Essential (primary) hypertension
CPT/HCPCS: 36415; 80053; 84153

== ENCOUNTER 2023-01-25 09:11 | Outpatient (RCR) | payer SELFPAY ==
[2022-12-29 00:16] VITALS: BP 100/61; PULSE 64
[2023-01-02 09:08] VITALS: BP 111/57; PULSE 71
[2023-01-04 09:29] VITALS: BP 119/64; PULSE 57
[2023-01-09 09:09] VITALS: BP 103/54; PULSE 56
[2023-01-11 10:19] VITALS: BP 112/57; PULSE 56
[2023-01-16 09:04] VITALS: BP 112/60; PULSE 56
[2023-01-18 09:15] VITALS: BP 140/63; PULSE 60
[2023-01-23 09:16] VITALS: BP 114/64; PULSE 57
[2023-01-25 09:12] VITALS: BP 130/74; PULSE 75
[2023-02-01 09:13] VITALS: BP 135/71; PULSE 69
== END 2023-01-27 23:59 | disposition home or self-care (01) ==
LOC: CR 09:11
PROVIDERS: PCP Family Medicine; Visit Provider Internal Medicine Cardiovascular Disease
DX: R69 Illness, unspecified (principal)

== ENCOUNTER 2023-02-27 08:47 | Outpatient (RCR) | payer SELFPAY ==
[2023-01-28 00:15] VITALS: BP 130/74; PULSE 75
[2023-01-30 08:55] VITALS: BP 136/68; PULSE 57
[2023-02-06 09:12] VITALS: BP 134/59; PULSE 60
[2023-02-08 09:08] VITALS: BP 126/63; PULSE 51
[2023-02-13 09:08] VITALS: BP 118/59; PULSE 58
[2023-02-15 09:28] VITALS: BP 127/61; PULSE 77
[2023-02-20 09:16] VITALS: BP 143/63; PULSE 51
[2023-02-27 08:50] VITALS: BP 121/57; PULSE 83
== END 2023-02-27 23:59 | disposition home or self-care (01) ==
LOC: CR 08:47
PROVIDERS: PCP Family Medicine; Visit Provider Internal Medicine Cardiovascular Disease
DX: R69 Illness, unspecified (principal)

== ENCOUNTER 2023-03-29 09:16 | Outpatient (RCR) | payer SELFPAY ==
[2023-02-28 00:09] VITALS: BP 130/74; PULSE 75
[2023-03-01 09:10] VITALS: BP 125/71; PULSE 61
[2023-03-06 08:47] VITALS: BP 125/71; PULSE 74
[2023-03-15 09:26] VITALS: BP 117/58; PULSE 56
[2023-03-20 09:17] VITALS: BP 112/63; PULSE 51
[2023-03-27 09:11] VITALS: BP 98/55; PULSE 61
[2023-03-29 08:56] VITALS: BP 103/56; PULSE 53
== END 2023-03-29 23:59 | disposition home or self-care (01) ==
LOC: CR 09:16
PROVIDERS: PCP Family Medicine; Visit Provider Internal Medicine Cardiovascular Disease
DX: R69 Illness, unspecified (principal)

== ENCOUNTER 2023-04-26 08:47 | Outpatient (RCR) | payer SELFPAY ==
[2023-03-30 00:06] VITALS: BP 130/74; PULSE 75
[2023-04-05 08:45] VITALS: BP 110/60; PULSE 52
[2023-04-12 10:49] VITALS: BP 121/62; PULSE 57
[2023-04-17 08:57] VITALS: BP 121/59; PULSE 51
[2023-04-24 09:06] VITALS: BP 111/61; PULSE 63
[2023-04-26 08:45] VITALS: BP 114/54; PULSE 58
== END 2023-04-29 23:59 | disposition home or self-care (01) ==
LOC: CR 08:47
PROVIDERS: PCP Family Medicine; Visit Provider Internal Medicine Cardiovascular Disease
DX: R69 Illness, unspecified (principal)

== ENCOUNTER → 2023-05-15 09:57 | Outpatient (BNVA) | payer MEDICARE, BC, SELFPAY | PROVIDERS: PCP Family Medicine; Referring Provider Family Medicine; Visit Provider Nurse Practitioner Gerontology | DX: N40.1 Benign prostatic hyperplasia with lower urinary tract symptoms (principal); R39.15 Urgency of urination | CPT/HCPCS: 51798; 99213 ==

== ENCOUNTER 2023-05-29 09:00 | Outpatient (RCR) | payer SELFPAY ==
[2023-04-30 00:04] VITALS: BP 130/74; PULSE 75
[2023-05-01 09:13] VITALS: BP 126/61; PULSE 54
[2023-05-03 09:42] VITALS: BP 103/61; PULSE 68
[2023-05-08 09:00] VITALS: BP 130/63; PULSE 50
[2023-05-10 11:14] VITALS: BP 130/60; PULSE 49
[2023-05-15 08:49] VITALS: BP 125/62; PULSE 53
[2023-05-17 08:50] VITALS: BP 142/59; PULSE 61
[2023-05-22 09:06] VITALS: BP 110/60; PULSE 61
[2023-05-29 08:58] VITALS: BP 138/61; PULSE 80
== END 2023-05-30 23:59 | disposition home or self-care (01) ==
LOC: CR 09:00
PROVIDERS: PCP Family Medicine; Visit Provider Internal Medicine Interventional Cardiology
DX: R69 Illness, unspecified (principal)

== ENCOUNTER 2023-06-26 09:53 | Outpatient (RCR) | payer SELFPAY ==
[2023-05-31 00:17] VITALS: BP 130/74; PULSE 75
[2023-05-31 08:46] VITALS: BP 111/58; PULSE 55
[2023-06-05 09:00] VITALS: BP 125/59; PULSE 55
[2023-06-07 09:49] VITALS: BP 126/72; PULSE 50
[2023-06-12 08:59] VITALS: BP 117/62; PULSE 57
[2023-06-19 13:17] VITALS: BP 127/60; PULSE 54
[2023-06-21 09:20] VITALS: BP 134/67; PULSE 60
[2023-06-26 10:17] VITALS: BP 114/61; PULSE 57
== END 2023-06-28 23:59 | disposition home or self-care (01) ==
LOC: CR 09:53
PROVIDERS: PCP Family Medicine; Visit Provider Internal Medicine Cardiovascular Disease
DX: R69 Illness, unspecified (principal)

== ENCOUNTER 2023-07-26 08:44 | Outpatient (RCR) | payer SELFPAY ==
[2023-06-29 00:21] VITALS: BP 130/74; PULSE 75
[2023-07-05 08:59] VITALS: BP 94/38; PULSE 62
[2023-07-10 09:01] VITALS: BP 118/59; PULSE 87
[2023-07-12 09:00] VITALS: BP 108/61; PULSE 57
[2023-07-17 09:00] VITALS: BP 109/59; PULSE 56
[2023-07-24 08:56] VITALS: BP 124/65; PULSE 69
[2023-07-26 09:34] VITALS: BP 115/59; PULSE 60
== END 2023-07-29 23:59 | disposition home or self-care (01) ==
LOC: CR 08:44
PROVIDERS: PCP Family Medicine; Visit Provider Internal Medicine Cardiovascular Disease
DX: R69 Illness, unspecified (principal)

== ENCOUNTER 2023-08-28 08:45 | Outpatient (RCR) | payer SELFPAY ==
[2023-07-31 14:42] VITALS: BP 110/58; PULSE 58
[2023-08-07 09:08] VITALS: BP 110/63; PULSE 55
[2023-08-09 08:43] VITALS: BP 131/60; PULSE 55
[2023-08-14 08:42] VITALS: BP 135/71; PULSE 54
[2023-08-21 08:44] VITALS: BP 113/55; PULSE 54
[2023-08-28 08:44] VITALS: BP 120/60; PULSE 54
== END 2023-08-28 23:59 | disposition home or self-care (01) ==
LOC: CR 08:45
PROVIDERS: PCP Family Medicine; Visit Provider Internal Medicine Cardiovascular Disease
DX: R69 Illness, unspecified (principal)

== ENCOUNTER 2023-09-27 09:21 | Outpatient (RCR) | payer SELFPAY ==
[2023-08-29 00:30] VITALS: BP 120/60; PULSE 54
[2023-08-30 08:40] VITALS: BP 137/69; PULSE 69; O2SAT 95
[2023-09-04 09:10] VITALS: BP 104/65; PULSE 62
[2023-09-06 10:38] VITALS: BP 119/60; PULSE 53
[2023-09-11 09:13] VITALS: BP 126/56; PULSE 49
[2023-09-13 08:49] VITALS: BP 150/64; PULSE 44
[2023-09-18 08:59] VITALS: BP 135/76; PULSE 76
[2023-09-20 10:09] VITALS: BP 106/62; PULSE 60
[2023-09-25 09:10] VITALS: BP 98/49; PULSE 46
[2023-09-27 09:16] VITALS: BP 107/61; PULSE 51
== END 2023-09-28 23:59 | disposition home or self-care (01) ==
LOC: CR 09:21
PROVIDERS: PCP Family Medicine; Visit Provider Internal Medicine Cardiovascular Disease
DX: R69 Illness, unspecified (principal)

== ENCOUNTER 2023-10-25 08:57 | Outpatient (RCR) | payer SELFPAY ==
[2023-09-29 00:11] VITALS: BP 120/60; PULSE 54
[2023-10-02 09:21] VITALS: BP 121/53; PULSE 37
[2023-10-04 09:13] VITALS: BP 110/63; PULSE 48
[2023-10-09 09:05] VITALS: BP 110/58; PULSE 57
[2023-10-11 12:23] VITALS: BP 109/57; PULSE 57
[2023-10-16 09:15] VITALS: BP 95/53; PULSE 84
[2023-10-23 09:19] VITALS: BP 102/62; PULSE 56
[2023-10-25 09:12] VITALS: BP 125/63; PULSE 60
== END 2023-10-28 23:59 | disposition home or self-care (01) ==
LOC: CR 08:57
PROVIDERS: PCP Family Medicine; Visit Provider Internal Medicine Cardiovascular Disease
DX: R69 Illness, unspecified (principal)

== ENCOUNTER 2023-11-27 09:00 | Outpatient (RCR) | payer SELFPAY ==
[2023-10-29 00:05] VITALS: BP 120/60; PULSE 54
[2023-10-30 09:51] VITALS: BP 119/64; PULSE 53
[2023-11-06 08:46] VITALS: BP 104/63; PULSE 88; O2SAT 97
--- OUTSIDE RECORDS SUMMARY | 2023-11-13 09:20 | XMS_ITS | Encounter Summary ---
[place] [address] Care Team Providers Care Metal Dealer Name Role Phone Tr Hendrix DO Primary Care Provider Encounter Details Date Type Department Care Team (Latest Contact Info) Description 05/10/2022 Travel Social History Tobacco Use Types Packs/Day Years Used Date Smoking Tobacco: Former Cigarettes 1 50 0 07/29/1965 - 07/30/2015 Smokeless Tobacco: Never Alcohol Use Standard Drinks/Week Comments Yes 14 (1 standard drink = 0.6 oz pu re alcohol) Sex and Gender Information Value Date Recorded Sex Assigned at Not on file Gender Identity Not on file Sexual Orientation Not on file documented as of this encounter Plan of Treatment Upcoming Encounters Date Type Department Care Team (Late st Contact Info) Description 06/20/2024 10:00 AM EST Office Visit Dermatology at [facility] [address] [facility] [place] [phone] Mustapha Lemos MD [address] [place] [address] documented as of this encounter Visit Diagnoses Not on filedocumented in this encounter Care Teams Metal Dealer Relationship Specialty Start Date End Date Tr Hendrix DO [address] [place] [address] PCP - General Family Medicine 05/24/17 documented as of this encounter
--- OUTSIDE RECORDS SUMMARY | 2023-11-13 09:20 | XMS_ITS | Encounter Summary ---
[place] [address] Care Team Providers Care Financial Business Analyst Name Role Phone Tr Hendrix DO Primary Care Provider [phone] Reason for Referral * Diagnostic Test (Routine) - Closed Specialty Diagnoses / Procedures Referred By Contac t Referred To Contact Radiology Diagnoses Abdominal aortic aneurysm (AAA) without rupture Procedures CT Abdomen & Pelvis wo Contrast Helio Duke MD [facility] [place] [address] [facility] [place] [address] Referral ID Status Reason Start Date Expiration Date V isits Requested Visits Authorized [id number] Closed Specialty Service Requested 06/21/2020 12/19/2021 1 1 Reason for Visit * Diagnostic Test (Routine) - Closed Specialty Diagnoses / Procedures Referred By Contac t Referred To Contact Radiology Diagnoses Abdominal aortic aneurysm (AAA) without rupture Procedures CT Abdomen & Pelvis wo Contrast Helio Duke MD [facility] [place] [address] [facility] [place] [address] Referral ID Status Reason Start Date Expiration Date V isits Requested Visits Authorized [id number] Closed Specialty Service Requested 06/21/2020 12/19/2021 1 1 Encounter Details Date Type Department Care Team (Latest Contact Info) Description 05/17/2022 12:43 PM EST - 05/17/2022 11:59 PM EST Hospital En[facility] [place] [address] Helio Duke MD [facility] [place] [address] Abdominal aortic aneurysm (AAA) without rupture Discharge Disposition: Home Social History Tobacco Use Types Packs/Day Years [...] on file documented as of this encounter Medications at Time of Discharge Medication Sig Dispensed Refills Start Date End Date terazosin (Hytrin) 10 mg capsule nightly. 03/07/2022 isosorbide mononitrate CR (Imdur) 30 mg Tablet Sustained Release 24 hrIndications:Coronary artery disease, unspecified vessel or lesion type, unspecified whether angina present, unspecified whether miami or transplanted heart Take 1 tablet by mouth daily. 90 tablet 3 03/07/2022 sacubitriL-valsartan (Entresto) 49-51 mg Tablet tabletIndications:Heart failure with reduced ejection fraction Take 1 tablet by mouth 2 times daily. 180 tablet 3 02/23/2022 nitroGLYcerin (Nitrostat) 0.4 mg Tablet, Sublingual Place 1 tablet under the tongue every 5 minutes as needed for Chest pain. 20 tablet 3 02/14/2021 atorvastatin (Lipitor) 80 mg Tablet Take 1 tablet by mouth daily. 90 tablet 3 02/14/2021 aspirin 81 mg Tablet, Chewable Take 81 mg by mouth daily. 30 tablet 3 06/11/2019 oxybutynin XL (Ditropan-XL) 5 mg Tablet Extended Rel 24 hr 04/11/2019 metoprolol succinate XL (Toprol-XL) 25 mg Tablet Sustained Release 24 hrIndications:Coronary artery disease, unspecified vessel or lesion type, unspecified whether angina present, unspecified whether miami or transplanted heart,Heart failure with reduced ejection fraction Take 0.5 tablets by mouth daily. 45 tablet 3 02/02/2022 12/06/2022 ketoconazole (NIZORAL) 2 % Shampoo Apply as shampoo on a daily basis as needed 120 mL 5 06/09/2021 09/27/2022 terazosin (HYTRIN) 5 mg Capsule Bedtime 03/19/2017 06/14/2023 documented as of this encounter Plan of Treatment Upcoming Encounters Date Type Department Care Team (Late st Contact Info) Description 06/20/2024 10:00 AM EST Office Visit Dermatology at [place] [address] [place] [address] Mustapha Lemos MD [address] [facility] [place] [address] documented as of this encounter Procedures Procedure Name Priority Date/Time Associated Diagnosis Comments CT ABDOMEN AND PELVIS WO CONTRAST Routine 05/17/2022 2:17 PM EST Abdominal aortic aneurysm (AAA) without rupture documented in this encounter Results * CT Abdomen & Pelvis wo Contrast (05/17/2022 2:17 PM EST) Anatomical Region Laterality Modality Abdomen, Pelvis Computed Tomogra phy Impressions 05/18/2022 8:49 AM EST 1. ??Unchanged size of the aorta and iliac artery graft status post repair when compared to 06/21/2020, with collapse of the miami aneurysm sac when compared to 06/20/2019. 2. ??Unchanged left internal iliac artery aneurysm. 3. ??Punctate nonobstructing left renal calculus. 4. ??Progression of disc degenerative changes in lumbar spine particularly at the L3-L4 level. Thank you for letting us participate in the care of this patient. ??If you are a health care provider and have any questions regarding this report, please contact the number below. ??For patients who have questions please contact the health customer care specialist that requested your imaging first. ? Electronically signed by: Stoney Cole MD, [facility] ([phone]), at 05/18/2022 8:49 AM Narrative 05/18/2022 8:49 AM EST EXAMINATION: CT ABDOMEN AND PELVIS WO CONTRAST CLINICAL HISTORY: AAA, monitoring Status post open abdominal aortic and bilateral common iliac aneurysm repair with bifurcated graft placement. TECHNIQUE: Helical CT of the abdomen and pelvis was performed without the use of intravenous contrast. ??Multiplanar reformatted images were generated. COMPARISON: CT abdomen and pelvis 06/21/2020 and 06/20/2019 FINDINGS: The absence of intravenous contrast limits the evaluation of solid viscera and vasculature. Lower chest: No focal consolidation. No pleural effusions. There is coronary calcification and calcifications at the aortic valve. Liver: Normal. Bile ducts: Nondilated. Gallbladder: Gallbladder is not distended. There is layering hyperdense material within the gallbladder which may represent sludge versus small calcified stones. No pericholecystic fat stranding or free fluid. Pancreas: Normal attenuation without ductal dilatation. Spleen: The spleen is normal in size. No focal splenic lesions. There are punctate splenic calcifications, likely sequela of prior granulomatous disease and unchanged compared to prior. Adrenals: Normal. Right kidney/ureter: No collecting system dilation or calculi. Left kidney/ureter: No collecting system dilation. Punctate nonobstructing left renal calculus (axial series 6 image 331). Unchanged 1.5 cm Left renal cyst. Urinary Bladder: No bladder or proximal urethral calculi. Vasculature: Status post aorta and bilateral common iliac artery aneurysm repair with a graft. Unchanged appearance of the aorta and iliac artery graft. Atherosclerotic disease of the abdominal aorta. Unchanged 3.2 x 2.6 cm dilation of the miami aneurysm sac just above the aortic bifurcation when compared to 06/21/2020 but decreased in caliber compared to 06/20/2019. Unchanged 2.3 x 2 cm dilation of the proximal left internal iliac artery (axial series 3 image 122). Lymph Nodes: No enlarged lymph nodes. Bowel: Nondilated, no wall thickening. ?? Peritoneum and mesentery: No ascites, free air, or loculated fluid collection. No mesenteric inflammation. Abdominal wall: Normal. Reproductive organs: Unchanged mild prostatomegaly with small calcifications. Normal appearance of the seminal vesicles. Osseous structures: Multilevel disc degenerative changes the lumbar spine most pronounced at L3-L4, L4-5 and L5-S1. Interval development of new subchondral cystic changes within the right aspect of the superior endplate of L4 (sagittal series 7 image 144). Unchanged Schmorl's node within the inferior endplate of L3 with increased surrounding sclerosis. These findings likely represent interval progression of degenerative change as they are on the concave right side of curvature at the L3-L4 level. No acute osseous findings. Procedure Note Stoney Cole MD - 05/18/2022 EXAMINATION: CT ABDOMEN AND PELVIS WO CONTRAST CLINICAL HISTORY: AAA, monitoring Status post open abdominal aortic and bilateral common iliac aneurysmrepair with bifurcated graft placement. TECHNIQUE: Helical CT of the abdomen and pelvis was performed without theuse of intravenous contrast. Multiplanar reformatted images were generated. COMPARISON: CT abdomen and pelvis 06/21/2020 and 06/20/2019 FINDINGS: The absence of intravenous contrast limits the evaluation of solid visceraand vasculature. Lower chest: No focal consolidation. No pleural effusions. There iscoronary calcification and calcifications at the aortic valve. Liver: Normal. Bile ducts: Nondilated. Gallbladder: Gallbladder is not distended. There is layering hyperdensematerial within the gallbladder which may represent sludge versus small calcifiedstones. No pericholecystic fat stranding or free fluid. Pancreas: Normal attenuation without ductal dilatation. Spleen: The spleen is normal in size. No focal splenic lesions. Thereare punctate splenic calcifications, likely sequela of prior granulomatousdisease and unchanged compared to prior. Adrenals: Normal. Right kidney/ureter: No collecting system dilation or calculi. Left kidney/ureter: No collecting system dilation. Punctate nonobstructingleft renal calculus (axial series 6 image 331). Unchanged 1.5 cm Left renalcyst. Urinary Bladder: No bladder or proximal urethral calculi. Vasculature: Status post aorta and bilateral common iliac artery aneurysmrepair with a graft. Unchanged appearance of the aorta and iliac artery graft. Atherosclerotic disease of the abdominal aorta. Unchanged 3.2 x 2.6 cmdilation of the miami aneurysm sac just above the aortic bifurcation when comparedto 06/21/2020 but decreased in caliber compared to 06/20/2019. Unchanged 2.3 x2 cm dilation of the proximal left internal iliac artery (axial series 3 [id number]). Lymph Nodes: No enlarged lymph nodes. Bowel: Nondilated, no wall thickening. Peritoneum and mesentery: No ascites, free air, or loculated fluidcollection. No mesenteric inflammation. Abdominal wall: Normal. Reproductive organs: Unchanged mild prostatomegaly with smallcalcifications. Normal appearance of the seminal vesicles. Osseous structures: Multilevel disc degenerative changes the lumbar spinemost pronounced at L3-L4, L4-5 and L5-S1. Interval development of newsubchondral cystic changes within the right aspect of the superior endplate of L4(sagittal series 7 image 144). Unchanged Schmorl's node within the inferior endplateof L3 with increased surrounding sclerosis. These findings likely representinterval progression of degenerative change as they are on the concave right sideof curvature at the L3-L4 level. No acute osseous findings. IMPRESSION 1. Unchanged size of the aorta and iliac artery graft status post repairwhen compared to 06/21/2020, with collapse of the miami aneurysm sac whencompared to 06/20/2019. 2. Unchanged left internal iliac artery aneurysm. 3. Punctate nonobstructing left renal calculus. 4. Progression of disc degenerative changes in lumbar spine particularlyat the L3-L4 level. Thank you for letting us participate in the care of this patient. If youare a health care provider and have any questions regarding this report,please contact the number below. For patients who have questions please contactthe health customer care specialist that requested your imaging first. Helio Duke MD IMG CT ORDERABLES documented in this encounter Visit Diagnoses Diagnosis Abdominal aortic aneurysm (AAA) without rupture documented in this encounter Care Teams Financial Business Analyst Relationship Specialty Start Date End Date Tr Hendrix DO [address] [place] [address] PCP - General Family Medicine 05/24/17 documented as of this encounter
--- OUTSIDE RECORDS SUMMARY | 2023-11-13 09:20 | XMS_ITS | Encounter Summary ---
[place] [address] Care Team Providers Care Student Affairs Vice President Name Role Phone Tr Hendrix DO Primary Care Provider [phone] Reason for Visit * Reason Comments Annual Exam Encounter Details Date Type Department Care Team (Late st Contact Info) Description 06/14/2023 10:00 AM EST Office Visit Dermatology at [address] [address] Mustapha Lemos MD [address] [facility] [place] [address] Seborrheic dermatitis; History of malignant melanoma Social History Tobacco Use Types Packs/Day Years [...] on file documented as of this encounter Progress Notes * Mustapha Lemos MD - 06/14/2023 10:00 AM EST Problem: 1. Follow-up for yearly skin checkup. 2. History of malignant melanoma, left flank, 0.98 mm Breslow depth, with extension down to deep margin, negative sentinel lymph node biopsy May 2010 3. History of malignant melanoma, right shoulder, June 2010 4. History of going up on [place] with frequent sun exposure 5. Recalcitrant seborrheic dermatitis utilizing Nizoral 2% shampoo 6. Status post revascularization procedure abdomen and femoral arteries Terry follows up for his yearly skin checkup. He is doing well with Nizoral 2% shampoo once a week for the control of his seborrheic dermatitis. He is like a refill. Physical examination reveals a pleasant 78-year-old gentleman who has well- healed scars on the leftflank and on the right shoulder. He has no evidence of recurrent pigmentation at the 2 melanoma excision sites. He has benign examination of the face the neck the chest the back the hands arms forearms thighs and calves and buttocks. He has no cervical or axillary adenopathy. He is mild seborrhea of the eyebrows and within the lateral harris area preauricular cheek area. Assessment plan: History of malignant melanomas 1. Patient reassured about his benign examination today 2. Continue sun avoidance precautions 3. Continue our once yearly skin checkups. Seborrheic dermatitis facial and scalp and presternal chest 1. Continue Nizoral/ketoconazole 2% shampoo use once to twice weekly. Dispense 120 mL with as needed refills. 2. This will go to his [facility] pharmacy. CC: Tr Hendrix DO documented in this encounter Plan of Treatment Upcoming Encounters Date Type Department Care Team (Late st Contact Info) Description 06/20/2024 10:00 AM EST Office Visit Dermatology at [address] [place] [address] Mustapha Lemos MD [address] [facility] [place] [address] documented as of this encounter Visit Diagnoses Diagnosis Seborrheic dermatitis Seborrheic dermatitis, unspecified History of malignant melanoma Personal history of malignant melanoma of skin documented in this encounter Care Teams Student Affairs Vice President Relationship Specialty Start Date End Date Tr Hendrix DO [address] [place] [address] PCP - General Family Medicine 05/24/17 documented as of this encounter
--- OUTSIDE RECORDS SUMMARY | 2023-11-13 09:20 | XMS_ITS | Encounter Summary ---
[place] [address] Care Team Providers Care Marble And Granite Polisher Name Role Phone Tr Hendrix DO Primary Care Provider [phone] Encounter Details Date Type Department Care Team (Late st Contact Info) Description 03/27/2022 Telephone [place] [phone] Angelique Queen Social History Tobacco Use Types Packs/Day Years [...] on file documented as of this encounter Miscellaneous Notes * Telephone Encounter - Angelique Fontana - 03/27/2022 3:00 PM EST Lmx1, , asking patient to call back to schedule from recall. Please call us [phone] option 1 to schedule. documented in this encounter Plan of Treatment Upcoming Encounters Date Type Department Care Team (Late st Contact Info) Description 06/20/2024 10:00 AM EST Office Visit Dermatology at [address] [phone] Mustapha Lemos MD [address] [place] [address] documented as of this encounter Visit Diagnoses Not on filedocumented in this encounter Care Teams Marble And Granite Polisher Relationship Specialty Start Date End Date Tr Hendrix DO [address] [place] [address] PCP - General Family Medicine 05/24/17 documented as of this encounter
--- OUTSIDE RECORDS SUMMARY | 2023-11-13 09:20 | XMS_ITS | Encounter Summary ---
Author Organization [facility] [place] [address] Care Team Providers Care Combatant Diver Qualified Name Role Phone HeberjenniferTr DO Primary Care Provider Encounter Details Date Type Department Care Team (Late st Contact Info) Description 12/13/2022 Telephone Cardiology at [address] [address] Faby Good, RN Social History Tobacco Use Types Packs/Day Years [...] encounter Miscellaneous Notes * Telephone Encounter - Faby Good RN - 12/13/2022 12:52 PM EDT Patient is going to just see his reconsignment clerk at [facility] per scheduling. Refills will be declined. Faby Purvis RNambulatory care [facility] General Team-Dmitriy documented in this encounter Plan of Treatment Upcoming Encounters Date Type Department Care Team (Late st Contact Info) Description 06/20/2024 10:00 AM EST Office Visit Dermatology at [address] [address] Mustapha Lemos MD [address] [place] [address] documented as of this encounter Visit Diagnoses Not on filedocumented in this encounter Care Teams Combatant Diver Qualified Relationship Specialty Start Date End Date Tr Hendrix DO [address] [place] [address] PCP - General Family Medicine 05/24/17 documented as of this encounter
--- OUTSIDE RECORDS SUMMARY | 2023-11-13 09:20 | XMS_ITS | Encounter Summary ---
[place] [address] Care Team Providers Care Air/Ocean Export Clerk Name Role Phone Tr Hendrix DO Primary Care Provider [phone] Encounter Details Date Type Department Care Team (Latest Contact Info) Description 05/17/2022 Travel Social History Tobacco Use Types Packs/Day [...] 10:00 AM EST Office Visit Dermatology at [place] [address] [place] [phone] Mustapha Lemos MD [address] [place] [address] documented as of this encounter Visit Diagnoses Not on filedocumented in this encounter Care Teams Air/Ocean Export Clerk Relationship Specialty Start Date End Date Tr Hendrix DO [address] [facility] [place] [address] PCP - General Family Medicine 05/24/17 documented as of this encounter
--- OUTSIDE RECORDS SUMMARY | 2023-11-13 09:20 | XMS_ITS | Encounter Summary ---
[place] [address] Care Team Providers Care Coat Tailor Name Role Phone Tr Hendrix DO Primary Care Provider [phone] Encounter Details Date Type Department Care Team (Late st Contact Info) Description 09/27/2022 Refill Dermatology at [address] [phone] Yvrose Mcwilliams LPN Social History Tobacco Use Types Packs/Day Years [...] 10:00 AM EST Office Visit Dermatology at [address] [phone] Mustapha Lemos MD [address] [place] [address] DERMATOLOGY [place], [place] [phone] documented as of this encounter Visit Diagnoses Not on filedocumented in this encounter Care Teams Coat Tailor Relationship Specialty Start Date End Date Tr Hendrix DO [facility] [address] [place], [place] [address] PCP - General Family Medicine 05/24/17 documented as of this encounter
--- OUTSIDE RECORDS SUMMARY | 2023-11-13 09:20 | XMS_ITS | Encounter Summary ---
[place] [address] Care Team Providers Care Scouring Train Operator Chief Name Role Phone Tr Hendrix DO Primary Care Provider [phone] Encounter Details Date Type Department Care Team (Latest Contact Info) Description 05/23/2023 11:00 AM EST Laboratory Appointment Lab [address] [place] [phone] Juxtarenal abdominal aortic aneurysm (AAA) without rupture Social History Tobacco Use Types Packs/Day Years [...] 10:00 AM EST Office Visit Dermatology at [place] [address] [facility] [place] [phone] Mustapha Lemos MD [address] DERMATOLOGY [place], [place] [phone] documented as of this encounter Procedures Procedure Name Priority Date/Time Associated Diagnosis Comments HC CREATININE STAT 05/23/2023 10:53 AM EST Juxtarenal abdominal aortic aneurysm (AAA) without rupture documented in this encounter Results * Creatinine (05/23/2023 10:53 AM EST) Creatinine 1.02 0.80 - 1.50 mg/dL [facility] Estimated GFR 75 >=60 mL/min/1. 73 m?? [facility] Comment: This patient's estimated GFR was calculated using the 2020 CKD-EPI equation. The estimated GFR can vary from the measured GFR by up to 30% in the absence of rapidly changing kidney function. Assessment of the estimated GFR is not appropriate when creatinine concentrations are rapidly changing. For clinical situations in which a more precise estimate of GFR is necessary, consider alternative methods of GFR estimation such as a 24-hour urine creatinine clearance. Assignment of CKD stage 1-5 for patients with an eGFR near the transition point between stages may be based on clinical assessment of muscle mass and symptoms in addition to eGFR. Blood 05/23/2023 10:5 3 AM EST 05/23/2023 10:56 AM EST Narrative Resulting Agency Comment Spec In Lab Helio Duke MD CHEMISTRY ORDERABLES [facility] [place] [address] documented in this encounter Visit Diagnoses Diagnosis Juxtarenal abdominal aortic aneurysm (AAA) without rupture documented in this encounter Care Teams Scouring Train Operator Chief Relationship Specialty Start Date End Date Tr Hendrix DO [address] [place] [id number] PCP - General Family Medicine 05/24/17 documented as of this encounter
--- OUTSIDE RECORDS SUMMARY | 2023-11-13 09:20 | XMS_ITS | Encounter Summary ---
[place] [address] Care Team Providers Care Manager Lab Name Role Phone Tr Hendrix DO Primary Care Provider Encounter Details Date Type Department Care Team (Latest Contact Info) Description 05/16/2023 Travel Social History Tobacco Use Types Packs/Day [...] 10:00 AM EST Office Visit Dermatology at [place] [address] [facility] [place] [phone] Mustapha Lemos MD [address] [address] documented as of this encounter Visit Diagnoses Not on filedocumented in this encounter Care Teams Manager Lab Relationship Specialty Start Date End Date Tr Hendrix DO [address] [facility] [facility] [place] [address] PCP - General Family Medicine 05/24/17 documented as of this encounter
--- OUTSIDE RECORDS SUMMARY | 2023-11-13 09:20 | XMS_ITS | Encounter Summary ---
Author Organization [facility] [place] [address] Care Team Providers Care Shovel Engineer Name Role Phone Tr Hendrix DO Primary Care Provider [phone] Encounter Details Date Type Department Care Team (Late st Contact Info) Description 12/04/2022 Telephone Cardiology at [address] [address] Faby Good, RN Social History [...] Telephone Encounter - Faby Good RN - 12/04/2022 4:41 PM EDT Patient called to report that he's continued to go to cardiac rehab twice weekly on Sunday and ( he pays out of pocket to keep going) and the nurse there asked him to check in with cardiology because he's been arriving with a lower HR in the 40's. He has a pulse ox at home and during theday his HR goes up to the 50-60's. He denies any CP or pressure, no dizziness or LH. If anything he has noticed a halo around his vision in the AM but it's only on occasion and lasts only a few minutes. He been active around his 2 acres of lawn and garden and feeling well otherwise. He does check his WT daily and it's been around 196 lbs. He still takes Entresto,Imdur and Metoprolol ( low dose). Faby uPrvis RNclient retention specialist Cardiovascular Clinic General TeamEl documented in this encounter Plan of Treatment Upcoming Encounters Date Type Department Care Team (Late st Contact Info) Description 06/20/2024 10:00 AM EST Office Visit Dermatology at [place] [address] [facility] [place] [phone] Mustapha Lemos MD [address] [place] [address] documented as of this encounter Visit Diagnoses Not on filedocumented in this encounter Care Teams Shovel Engineer Relationship Specialty Start Date End Date Tr Hendrix DO [address] [place] [address] PCP - General Family Medicine 05/24/17 documented as of this encounter
--- OUTSIDE RECORDS SUMMARY | 2023-11-13 09:20 | XMS_ITS | Encounter Summary ---
[place] [address] Care Team Providers Care Block Mechanic Name Role Phone Tr Hendrix DO Primary Care Provider Encounter Details Date Type Department Care Team (Latest Contact Info) Description 05/23/2023 Travel Social History Tobacco Use Types Packs/Day [...] 10:00 AM EST Office Visit Dermatology at [place] [address] [facility] [place] [phone] Mustapha Lemos MD [address] [place] [address] documented as of this encounter Visit Diagnoses Not on filedocumented in this encounter Care Teams Block Mechanic Relationship Specialty Start Date End Date Tr Hendrix DO [address] [facility] [place] [address] PCP - General Family Medicine 05/24/17 documented as of this encounter
--- OUTSIDE RECORDS SUMMARY | 2023-11-13 09:20 | XMS_ITS | Encounter Summary ---
[place] [address] Care Team Providers Care Jewel Hole Driller Name Role Phone Tr Hendrix DO Primary Care Provider [phone] Reason for Visit * Reason Comments Annual Exam Encounter Details Date Type Department Care Team (Late st Contact Info) Description 06/13/2022 10:00 AM EST Office Visit Dermatology at [address] [phone] Mustapha Lemos MD [address] [facility] [place] [address] Seborrheic dermatitis; History of malignant melanoma Social [...] Progress Notes * Mustapha Lemos MD - 06/13/2022 10:00 AM EST Problem: 1.?Follow-up for yearly skin checkup. 2. 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 ??History of malignant??melanoma, right shoulder, June 2010 4. ??History of [place] with frequent sun exposure 5. ??Recalcitrant seborrheic dermatitis??which does not bother patient 6. Status post revascularization procedure abdomen and femoral arteries Terry follows up for his yearly skin checkup. He is satisfied with his level of control of the seborrheic dermatitis. He is using medicated shampoos intermittently. Physical examination reveals a pleasant 77-year-old gentleman who has well- healed scars on [...] 3. Continue our once yearly skin checkups. CC: Tr Hendrix DO documented in this encounter Plan of Treatment Upcoming Encounters Date Type Department Care Team (Late st Contact Info) Description 06/20/2024 10:00 AM EST Office Visit Dermatology at [place] [address] [place] [address] Mustapha Lemos MD [address] [facility] [place] [address] documented as of this encounter Visit Diagnoses Diagnosis Seborrheic dermatitis Seborrheic dermatitis, unspecified History of malignant melanoma Personal history of malignant melanoma of skin documented in this encounter Care Teams Jewel Hole Driller Relationship Specialty Start Date End Date Tr Hendrix DO [address] [place] [address] PCP - General Family Medicine 05/24/17 documented as of this encounter
--- OUTSIDE RECORDS SUMMARY | 2023-11-13 09:20 | XMS_ITS | Encounter Summary ---
[place] [address] Care Team Providers Care Service Trainer Name Role Phone Tr Hendrix DO Primary Care Provider [phone] Reason for Referral * Diagnostic Test (Routine) - New Request Specialty Diagnoses / Procedures Referred By Gloria rubio Referred To Contact Radiology Diagnoses Infrarenal abdominal aortic aneurysm (AAA) without rupture Procedures CT Abdomen & Pelvis wo Contrast Helio Duke MD [facility] [place] [address] [facility] [place] [address] Referral ID Status Reason Start Date Expiration Date Visits Requested Visits Authorized [id number] New Request Specialty Service Requested 05/23/2023 11/20/2024 1 1 Encounter Details Date Type Department Care Team (Late st Contact Info) Description 05/23/2023 2:00 PM EST Office [place] [address] Helio Duke MD [facility] [place] [address] Juxtarenal abdominal aortic aneurysm (AAA) without rupture; Infrarenal abdominal aortic aneurysm (AAA) without rupture Social [...] on file documented as of this encounter Last Filed Vital Signs Vital Sign Reading Time Taken Comments Blood Pressure 131/53 05/23/2023 11:41 AM EST Pulse 61 05/23/2023 11:41 AM EST Temperature - - Respiratory Rate - - Oxygen Saturation - - Inhaled Oxygen Concentration - - Weight 91.6 kg (202 lb) 05/23/2023 11:41 AM EST Height 175.3 cm (5' 9) 05/23/2023 11:41 AM EST Body Mass Index 29.83 05/23/2023 11:41 AM EST documented in this encounter Progress Notes * Helio Duke MD - 05/23/2023 2:00 PM EST Vascular Surgery Clinic Visit Note Reason for visit: aneurysm surveillance Prior vascular history: 06/03/2019 open abdominal aortic and bilateral common iliac aneurysm repair. He underwent bifurcated graft placement (18x9) via transperitoneal approach with clamp placement between the 2 renal arteries. We were able to salvage the left hypogastric artery and oversewed the right hypogastric artery. 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 Nolasco returns for annual surveillance of his aneurysm repair and small L hypo aneurysm. He suffered post-op a-fib that resolved. In 02/2020 he developed angina and a TTE showed EF 39% with anterior/apical WMA. Coronary angiography with RCA PRESS OPERATOR and proximal LCx lesion, s/p PCI to circumflex artery. He was discharged on GDMT with DAPT, BB, ARB, high intensity statin. Thereafter he was switched to Entresto and has since stopped plavix. Denies abdominal or back pain. Former smoker. More recent echo and stress test show improved EF to around 50%. Problem List: Patient Active Problem List Diagnosis Coronary artery disease Ex-smoker Heart failure with reduced ejection fraction Hyperplastic colon polyp Left bundle branch block Pulmonary nodules Accelerating angina AAA (abdominal aortic aneurysm) Pre-operative exam Iliac artery aneurysm Hyperlipidemia Adiposity History of BPH Tobacco dependence syndrome Hemangioma of liver Abdominal aortic aneurysm Adenomatous polyp of colon Seborrheic dermatitis Benign prostatic hyperplasia with urinary obstruction Increased frequency of urination History of malignant melanoma Benign prostatic hyperplasia without urinary obstruction Malignant melanoma of skin Overview Note: of the left flank ---Pathologic Diagnosis--- Specimen: Skin of left mid back, shave biopsy Histologic Type: Malignant melanoma Ulceration: Absent Depth of Invasion: 0.98 mm Bryant's Level: III/early IV Regression: Present Vascular Invasion: Not identified. Perineural Invasion: Not identified. Microscopic Satellites: Cannot assess Dermal mitoses per mm2: 2 Tumor infiltrating lymphocytes: Brisk Solar Elastosis: Absent Associated Nevus: Not identified. Margins: Peripheral Margins: In situ melanoma 0.6 mm from peripheral margin. Deep Margin: Melanoma extends along follicle to the deep margin. 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 Medications: Current Outpatient Medications: ketoconazole (NIZORAL) 2 % Shampoo, Apply as shampoo on a daily basis as needed, Disp: 120 mL, Rfl:5 isosorbide mononitrate CR (Imdur) 30 mg Tablet Sustained Release 24 hr, Take 1 tablet by mouth daily., Disp: 90 tablet, Rfl: 3 sacubitriL-valsartan (Entresto) 49-51 mg Tablet tablet, Take 1 tablet by mouth 2 times daily., Disp: 180 tablet, Rfl: 3 nitroGLYcerin (Nitrostat) 0.4 mg Tablet, Sublingual, Place 1 tablet under the tongue every 5 minutes as needed for Chest pain., Disp: 20 tablet, Rfl: 3 atorvastatin (Lipitor) 80 mg Tablet, Take 1 tablet by mouth daily., Disp: 90 tablet, Rfl: 3 aspirin 81 mg Tablet, Chewable, Take 81 mg by mouth daily., Disp: 30 tablet, Rfl: 3 oxybutynin XL (Ditropan-XL) 5 mg Tablet Extended Rel 24 hr, , Disp: , Rfl: terazosin (HYTRIN) 5 mg Capsule, Bedtime, Disp: , Rfl: Patient Medical, Surgical, and Social History updated and reviewed in eD. Physical Exam: Temp: -- Heart Rate: [61] Resp: -- BP: (131)/(53) SpO2: -- Heart Rate from SpO2: -- Estimated body mass index is 29.83 kg/m?? as calculated from the following: Height as of this encounter: 175.3 cm (5' 9). Weight as of this encounter: 91.6 kg (202 lb). General: NAD, appears well Neuro: Alert and oriented, motor sensory grossly intact in all extremities, CN 2-12 normal Ear, Nose, Throat: No masses or lesions Skin: No lesions or abnormal markings Lungs: CTA Heart: RRR Abd - Soft, NT, ND, Aortic pulse is palpable and not appreciably aneurysmal. No hernias. Musculoskeletal- full ROM upper and lower extremities Psych- alert oriented X3 Extremity - [place], warm, no ulceration, brisk capillary refill, no edema Vascular: Palpable bilateral radial, carotid, femoral, and pedal pulses. No carotid bruits. No appreciable popliteal aneurysms. Studies: Images personally reviewed by myself today. CT abdomen/pelvis today with intact aneurysm repair. No PSA. L hypo aneurysm about 2.2cm today versus 2.1cm one year ago. Assessment/Plan: Mr. Nolasco is doing well from an aneurysm standpoint. His repair remains intact without issue. His left hypo aneurysm remains small and below threshold for repair. No activity restrictions. Continue medical therapy with BP control. No longer smokes. Cont also ASA and statin therapy. F/u for his aneurysm repair will be in one year with repeat non-con CT abdomen/pelvis. Helio Duke MD, MS Section of Vascular Surgery documented in this encounter Plan of Treatment Upcoming Encounters Date Type Department Care Team (Late st Contact Info) Description 06/20/2024 10:00 AM EST Office Visit Dermatology at [place] [address] [place] [phone] Mustapha Lemos MD [address] [facility] [place] [address] Scheduled Orders Name Type Priority Associated Diagnoses Orde r Schedule CT Abdomen & Pelvis wo Contrast Imaging Routine Infrarenal abdominal aortic aneurysm (AAA) without rupture Expected: 05/23/2024 (Approximate), Expires: 05/23/2024 documented as of this encounter Results * Creatinine (05/23/2023 10:53 AM EST) Creatinine 1.02 0.80 - 1.50 mg/dL [facility] Estimated GFR 75 >=60 mL/min/1. 73 m?? 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
--- OUTSIDE RECORDS SUMMARY | 2023-11-13 09:20 | XMS_ITS | Encounter Summary ---
Author Organization [facility] [place] [address] Care Team Providers Care Mobile Solutions Architect Name Role Phone Tr Hendrix DO Primary Care Provider [phone] Encounter Details Date Type Department Care Team (Late st Contact Info) Description 12/06/2022 Abstract Cardiology at [address] [phone] Faby Good, RN Social History Tobacco Use [...] 10:00 AM EST Office Visit Dermatology at [place] [address] [place] [address] Mustapha Lemos MD [address] [facility] [place] [address] documented as of this encounter Visit Diagnoses Not on filedocumented in this encounter Care Teams Mobile Solutions Architect Relationship Specialty Start Date End Date Tr Hendrix DO [address] [place], [place] [phone] PCP - General Family Medicine 05/24/17 documented as of this encounter
--- OUTSIDE RECORDS SUMMARY | 2023-11-13 09:20 | XMS_ITS | Clinical Summary ---
Author Organization [facility] [place] [address] Care Team Providers Care Plunger Shovel Operator Name Role Phone Tr Hendrix DO Primary Care Provider [phone] Allergies Active Allergy Reactions Criticality Noted Date Comments Hydrochlorothiazide 05/18/2016 Other Reaction(s): FELT LOUSY Lisinopril 05/18/2016 Venom-Honey Bee High 11/22/2020 Other reaction(s): ANAPHALAXSIS Other Reaction(s): ANAPHALAXSIS Medications Medication Sig Dispensed Refills Start Date End Date Status oxybutynin XL (Ditropan-XL) 5 mg Tablet Extended Rel 24 hr 04/11/2019 Active aspirin 81 mg Tablet, Chewable Take 81 mg by mouth daily. 30 tablet 3 06/11/2019 Active nitroGLYcerin (Nitrostat) 0.4 mg Tablet, Sublingual Place 1 tablet under the tongue every 5 minutes as needed for Chest pain. 20 tablet 3 02/14/2021 Active atorvastatin (Lipitor) 80 mg Tablet Take 1 tablet by mouth daily. 90 tablet 3 02/14/2021 Active sacubitriL-valsartan (Entresto) 49-51 mg Tablet tabletIndications:Hea rt failure with reduced ejection fraction Take 1 tablet by mouth 2 times daily. 180 tablet 3 02/23/2022 Active isosorbide mononitrate CR (Imdur) 30 mg Tablet Sustained Release 24 hrIndications:Coronar y artery disease, unspecified vessel or lesion type, unspecified whether angina present, unspecified whether [place] or transplanted heart Take 1 tablet by mouth daily. 90 tablet 3 03/07/2022 Active metoprolol succinate XL (Toprol-XL) 25 mg ER 24 hr tablet 01/30/2023 Active terazosin (Hytrin) 10 mg capsule nightly. 03/07/2022 Active ketoconazole (NIZORAL) 2 % Shampoo Apply as shampoo on a daily basis as needed 120 mL 06/14/2023 Active Active Problems Patient Care Coordination No te Formatting of this note migh t be different from the original. [facility] [employer]. 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 Hyperlipidemia 06/30/2015 Adiposity 06/30/2015 History of BPH 06/30/2015 Tobacco dependence syndrome 06/30/2015 Hemangioma of liver 06/30/2015 Abdominal aortic aneurysm 06/30/2015 Adenomatous polyp of colon 06/30/2015 Seborrheic dermatitis 05/24/2015 Benign prostatic hyperplasia with urinary obstru ction 03/17/2015 Increased frequency of urination 03/17/2015 History of malignant melanoma 07/05/2011 Benign prostatic hyperplasia without urinary obs truction 06/27/2011 Malignant melanoma of skin 10/18/2010 Overview (12/25/2017): of the left flank ---Pathologic Diagnosis--- Specimen: [...] Pathologic TNM Codes: pT1b pNx pMx Hypertension 10/18/2010 Overview (12/25/2017): on medication 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 09/28 Social History Tobacco Use Types Packs/Day Years Used Date Smoking Tobacco: Former Cigarettes 1 50 0 07/29/1965 - 07/30/2015 Smokeless Tobacco: Never Tobacco Cessation:Counseling Given: No Alcohol Use Standard Drinks/Week Comments Yes 14 (1 standard drink = 0.6 oz pu re alcohol) Sex and Gender Information Value Date Recorded Sex Assigned at Not on file Gender Identity Not on file Sexual Orientation Not on file Last Filed Vital Signs Vital Sign Reading Time Taken Comments Blood Pressure 131/53 05/23/2023 11:41 AM EST Pulse 61 05/23/2023 11:41 AM EST Temperature 36.6 ??C (97.9 ??F) 03/17/2020 11:[address] Respiratory Rate 18 03/17/2020 11:12 AM EST Oxygen Saturation 96% 01/11/2022 11:12 AM EDT Inhaled Oxygen Concentration - - Weight 91.6 kg (202 lb) 05/23/2023 11:41 AM EST Height 175.3 cm (5' 9) 05/23/2023 11:41 AM EST Body Mass Index 29.83 05/23/2023 11:41 AM EST Plan of Treatment Upcoming Encounters Date Type Department Care Team (Late st Contact Info) Description 06/20/2024 10:00 AM EST Office Visit Dermatology at [place] [address] [place] [id number] Mustapha Lemos MD [address] [place] [address] Health Maintenance Due Date Last Done Comments Hepatitis C Screening 1963 Tdap adult 1964 Tetanus vaccine 1964 Zoster vaccine (1 of 2) 1995 Pneumoccocal Vaccine: 65+ (1 of 1 - PCV) 2010 Covid-19 Vaccine (1 - 2022-2 4 season) 2022 Influenza (Flu) vaccine (1 o f 1 - Influenza standard series) 12/30/2023 AAA Screen Discontinued 03/14/2019, 08/2018, 12/25/2017, Additional history exists Medical Devices Implanted Type Area Marine Tower Operator Device Identifier Shelf Expiration Date Model / Serial / Lot Graft,Hmgd,[id number] ,[id number] ([id number]) - [id number] Implanted:Qty: 1 on 06/03/2019 by Heilo Duke MD at [facility] IMPLANTS [employer] 01/27/2023 [id number] / [id number] / [id number] Procedures Procedure Name Priority Date/Time Associated Diagnosis Comments CT ANGIOGRAM ABDOMEN AND PELVIS W CONTRAST Routine 03/14/2019 9:20 AM EST Abdominal aortic aneurysm (AAA) without rupture from Last 3 Months or Most Recently Relevant to Health Maintenance Results * CT Angiogram Abdomen & Pelvis w Contrast (Generic) (03/14/2019 9:20 AM EST) Anatomical Region Laterality Modality Abdomen, Pelvis Computed Tomogra phy Impressions 03/14/2019 2:33 PM EST 1. ??No significant interval increase in size of infrarenal aortic aneurysm. Enlargement since 07/30/15 from 4.9 cm to 5.5 cm maximum diameter. 2. ??Aneurysmal dilatation of bilateral common iliac arteries, unchanged. Aneurysmal dilatation of the left internal iliac artery, unchanged. I have personally reviewed the image(s) and the residents interpretation and agree with the findings, Wayne Wise at 03/14/2019 2:33 PM Thank you for letting us participate in the care of this patient. For questions regarding this report, please contact the number below. ? Narrative 03/14/2019 2:33 PM EST EXAMINATION: CT ANGIOGRAM ABDOMEN AND PELVIS W CONTRAST (GENERIC) CLINICAL HISTORY: Abdominal aortic aneurysm TECHNIQUE: Helical CT angiogram of the abdomen and pelvis was performed following the intravenous administration of contrast. Administered 70.0 ml of OMNIPAQUE 350.00 mg/ml. MPRs were performed. Multiplanar images were reviewed and 3-D images were generated on an independent workstation. COMPARISON: CT angiogram of the abdomen and pelvis dated 08/02/2018 FINDINGS: VASCULAR FINDINGS Abdominal aorta: Infrarenal AAA measuring 4.9 x 5.5 cm on centerline reformatted images, previously 4.7 x 5.4 cm. Celiac: Widely patent. SMA: Widely patent. Right renal artery: Widely patent. Left renal artery: Widely patent. FILIPPO: Widely patent. Right: Common iliac artery: Fusiform aneurysm measuring 3.2 x 3.6 cm, previously 3.1 x 3.4 cm. External iliac artery: Widely patent. Internal iliac artery: Severe stenosis at the origin, extensive atherosclerotic disease throughout the remainder of the vessel with multifocal stenoses. Common femoral artery: Widely patent. Irregularity of the posterior vessel wall secondary to atherosclerotic disease Superficial femoral artery: The visualized aspects are widely patent. Profundus femoral artery: The visualized aspects are widely patent. Left: Common iliac artery: Fusiform aneurysm measuring 3.2 x 3.4 cm, previously 3.1 x 3.3 cm. External iliac artery: Widely patent. Internal iliac artery: Moderate stenosis at the origin. Fusiform aneurysm in the midportion measuring 2.0 cm (series 7 image 575). Common femoral artery: Widely patent. Superficial femoral artery: The visualized aspects are widely patent. Profundus femoral artery: The visualized aspects are widely patent. NON-VASCULAR FINDINGS Lower chest: Normal. Liver: Normal size and contour. Small blush of arterial phase enhancement in the segment 6 is stable since 07/30/15, favored a benign flash filling hemangioma or transient hepatic attenuation difference. Bile ducts: Nondilated. Gallbladder: No calcified gallstones. Normal caliber wall. Pancreas: Normal attenuation without ductal dilatation. Spleen: Normal. Kidneys/adrenals: Normal adrenal glands. Stable 8 mm left renal cortical cyst. Symmetric enhancement without hydronephrosis. Urinary Bladder: Normal. Lymph Nodes: No enlarged lymph nodes. Bowel: No obstruction or adjacent inflammation. Colonic diverticulosis. Peritoneum and mesentery: No ascites, free air, or loculated fluid collection. No mesenteric inflammation. Osseous structures: No suspicious findings. Procedure Note Wayne Wise MD - 03/14/2019 EXAMINATION: CT ANGIOGRAM ABDOMEN AND PELVIS W CONTRAST (GENERIC) CLINICAL HISTORY: Abdominal aortic aneurysm TECHNIQUE: Helical CT angiogram of the abdomen and pelvis was performed following the intravenous administration of contrast. Administered 70.0 mlof OMNIPAQUE 350.00 mg/ml. MPRs were performed. Multiplanar images werereviewed and 3-D images were generated on an independent workstation. COMPARISON: CT angiogram of the abdomen and pelvis dated 08/02/2018 FINDINGS: VASCULAR FINDINGS Abdominal aorta: Infrarenal AAA measuring 4.9 x 5.5 cm on centerlinereformatted images, previously 4.7 x 5.4 cm. Celiac: Widely patent. SMA: Widely patent. Right renal artery: Widely patent. Left renal artery: Widely patent. FILIPPO: Widely patent. Right: Common iliac artery: Fusiform aneurysm measuring 3.2 x 3.6 cm, previously3.1 x 3.4 cm. External iliac artery: Widely patent. Internal iliac artery: Severe stenosis at the origin, extensiveatherosclerotic disease throughout the remainder of the vessel with multifocal stenoses. Common femoral artery: Widely patent. Irregularity of the posterior vesselwall secondary to atherosclerotic disease Superficial femoral artery: The visualized aspects are widely patent. Profundus femoral artery: The visualized aspects are widely patent. Left: Common iliac artery: Fusiform aneurysm measuring 3.2 x 3.4 cm, previously3.1 x 3.3 cm. External iliac artery: Widely patent. Internal iliac artery: Moderate stenosis at the origin. Fusiform aneurysmin the midportion measuring 2.0 cm (series 7 image 575). Common femoral artery: Widely patent. Superficial femoral artery: The visualized aspects are widely patent. Profundus femoral artery: The visualized aspects are widely patent. NON-VASCULAR FINDINGS Lower chest: Normal. Liver: Normal size and contour. Small blush of arterial phase enhancementin the segment 6 is stable since 07/30/15, favored a benign flash fillinghemangioma or transient hepatic attenuation difference. Bile ducts: Nondilated. Gallbladder: No calcified gallstones. Normal caliber wall. Pancreas: Normal attenuation without ductal dilatation. Spleen: Normal. Kidneys/adrenals: Normal adrenal glands. Stable 8 mm left renal corticalcyst. Symmetric enhancement without hydronephrosis. Urinary Bladder: Normal. Lymph Nodes: No enlarged lymph nodes. Bowel: No obstruction or adjacent inflammation. Colonic diverticulosis. Peritoneum and mesentery: No ascites, free air, or loculated fluidcollection. No mesenteric inflammation. Osseous structures: No suspicious findings. IMPRESSION 1. No significant interval increase in size of infrarenal aorticaneurysm. Enlargement since 07/30/15 from 4.9 cm to 5.5 cm maximum diameter. 2. Aneurysmal dilatation of bilateral common iliac arteries, unchanged. Aneurysmal dilatation of the left internal iliac artery, unchanged. I have personally reviewed the image(s) and the residents interpretationand agree with the findings, Wayne Wise at 03/14/2019 2:33 PM Thank you for letting us participate in the care of this patient. Forquestions regarding this report, please contact the number below. 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 Advance Directives and Bella garcia Will 03/16/2020 3:05 PM 2.04.17 * Attempt Cardiopulmonary Resuscitation - Inpatient (Latest Code Status on File) Date Activated Date Inactivated Comments 03/15/2020 2:09 PM 03/17/2020 3:43 PM Question Answer Comments Code Status decision made by: Patient * Full Code Date Activated Date Inactivated Comments 06/03/2019 4:14 PM 06/10/2019 5:24 PM Question Answer Comments Does patient have capacity to make decision: Yes Care Teams Plunger Shovel Operator Relationship Specialty Start Date End Date Tr Hendrix DO [facility] [place] [address] PCP - General Family Medicine 05/24/17
--- OUTSIDE RECORDS SUMMARY | 2023-11-13 09:20 | XMS_ITS | Encounter Summary ---
[place] [address] Care Team Providers Care Motorized Squad Captain Name Role Phone Tr Hendrix DO Primary Care Provider [phone] Reason for Referral * Diagnostic Test (Routine) - Closed Specialty Diagnoses / Procedures Referred By Contac t Referred To Contact Radiology Diagnoses Juxtarenal abdominal aortic aneurysm (AAA) without rupture Procedures CT Abdomen & Pelvis wo Contrast Helio Duke MD [facility] [place] [address] [facility] [place] [address] Referral ID Status Reason Start Date Expiration Date V isits Requested Visits Authorized [id number] Closed Specialty Service Requested 05/17/2022 11/15/2023 1 1 Encounter Details Date Type Department Care Team (Late st Contact Info) Description 05/17/2022 3:00 PM EST Office Visit [place] [address] Helio Duke MD [facility] [place] [address] Juxtarenal abdominal aortic aneurysm (AAA) without rupture [...] Sign Reading Time Taken Comments Blood Pressure 124/54 05/17/2022 2:32 PM EST Pulse 55 05/17/2022 2:32 PM EST Temperature - - Respiratory Rate - - Oxygen Saturation - - Inhaled Oxygen Concentration - - Weight 93 kg (205 lb) 05/17/2022 2:32 PM EST pt reported Height 174 cm (5' 8.5) 05/17/2022 2:32 PM EST p t reported Body Mass Index 30.72 05/17/2022 2:32 PM EST documented in this encounter Progress Notes * Helio Duke MD - 05/17/2022 3:00 PM EST Vascular Surgery Clinic Visit Note Reason for visit: aneurysm surveillance ?? Prior vascular history: 06/03/2019 open abdominal aortic and bilateral common iliac aneurysm repair. ??He underwent bifurcated graft placement (18x9) via transperitoneal approach with clamp placement between the 2 renal arteries. ??We were able to salvage the left hypogastric artery and oversewed the right hypogastric artery. ?? 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 Interval history: Mr. Nolasco returns for annual surveillance of his aneurysm repair and small L hypo aneurysm. He suffered post-op a-fib that resolved. In 02/2020 he developed angina and a TTE showed EF 39% with anterior/apical WMA.??Coronary angiography with [employer] and proximal LCx lesion, s/p PCI to circumflexartery.??He was discharged on GDMT with DAPT, BB, ARB, high intensity statin. Thereafter he was switched to Entresto and has since stopped plavix. Denies abdominal or back pain. Former smoker. More recent echo and stress test show improved EF to around 50%. Problem List: Patient Active Problem List Diagnosis ??? Coronary artery disease ??? Ex-smoker ??? Heart failure with reduced ejection fraction ??? Hyperplastic colon polyp ??? Left bundle branch block ??? Pulmonary nodules ??? Accelerating angina ??? AAA (abdominal aortic aneurysm) ??? Pre-operative exam ??? Iliac artery aneurysm ??? Hyperlipidemia ??? Adiposity ??? History of BPH ??? Tobacco dependence syndrome ??? Hemangioma of liver ??? Abdominal aortic aneurysm ??? Adenomatous polyp of colon ??? Seborrheic dermatitis ??? Benign prostatic hyperplasia with urinary obstruction ??? Increased frequency of urination ??? History of malignant melanoma ??? Benign prostatic hyperplasia without urinary obstruction ??? Malignant melanoma of skin Overview Note: of [...] margin. Pathologic TNM Codes: pT1b pNx pMx ??? Hypertension Overview Note: on medication ??? 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 isosorbide mononitrate CR (Imdur) 30 mg Tablet Sustained Release 24 hr, Take 1 tablet by mouth daily., Disp: 90 tablet, Rfl: 3 ??? sacubitriL-valsartan (Entresto) 49-51 mg Tablet tablet, Take 1 tablet by mouth 2 times daily., Disp: 180 tablet, Rfl: 3 ??? metoprolol succinate XL (Toprol-XL) 25 mg Tablet Sustained Release 24 hr, Take 0.5 tablets by mouth daily., Disp: 45 tablet, Rfl: 3 ??? ketoconazole (NIZORAL) 2 % Shampoo, Apply as shampoo on a daily basis as needed, Disp: 120 mL, Rfl: 5 ??? nitroGLYcerin (Nitrostat) 0.4 mg Tablet, Sublingual, Place 1 tablet under the tongue every 5 minutes as needed for Chest pain., Disp: 20 tablet, Rfl: 3 ??? atorvastatin (Lipitor) 80 mg Tablet, Take 1 tablet by mouth daily., Disp: 90 tablet, Rfl: 3 ??? aspirin 81 mg Tablet, Chewable, Take 81 mg by mouth daily., Disp: 30 tablet, Rfl: 3 ??? oxybutynin XL (Ditropan-XL) 5 mg Tablet Extended Rel 24 hr, , Disp: , Rfl: ??? terazosin (HYTRIN) 5 mg Capsule, Bedtime, Disp: , Rfl: Patient Medical, Surgical, and Social History updated and reviewed in eDH. Physical Exam: Temp: -- Heart Rate: [55] Resp: -- BP: (124)/(54) SpO2: -- Heart Rate from SpO2: -- Estimated body mass index is 30.72 kg/m?? as calculated from the following: Height as of this encounter: 174 cm (5' 8.5). Weight as of this encounter: 93 kg (205 lb). General: NAD, appears well Neuro: Alert [...] extremities Psych- alert oriented X3 Extremity - Orick, warm, no ulceration, brisk capillary refill, no edema Vascular: Palpable bilateral radial, carotid, femoral, and pedal pulses. No carotid bruits. No appreciable popliteal aneurysms. ?? Studies: Images personally reviewed by myself today. ?? CT abdomen/pelvis today with intact aneurysm repair. No PSA. L hypo aneurysm about 2.1cm today versus 2.0cm one year ago. ?? Assessment/Plan: Mr. Nolasco is doing well from an aneurysm standpoint. His repair remains intact without issue. His left hypo aneurysm remains small and below threshold for repair. No activity restrictions. Continue medical therapy with BP control. No longer smokes. Cont also ASA and statin therapy. ? F/u for his aneurysm repair will be in one year with repeat non-con CT abdomen/pelvis. ?? Helio Duke MD, MS Section of Vascular Surgery documented in this encounter Plan of Treatment Upcoming Encounters Date Type Department Care Team (Late st Contact Info) Description 06/20/2024 10:00 AM EST Office Visit Dermatology at [place] [address] [place] [address] Mustapha Lemos MD [address] [facility] [place] [address] documented as of this encounter Results * CT Abdomen & Pelvis wo Contrast (05/23/2023 11:20 AM EST) Anatomical Region Laterality Modality Abdomen, Pelvis Computed Tomogra phy Impressions 05/23/2023 4:14 PM EST Unchanged size of aortic and iliac arteries status post repair. I have personally reviewed the image(s) and the resident's interpretation and agree with the findings, Wayne Wise MD at 05/23/2023 4:14 PM Thank you for letting us participate in the care of this patient. ??If you are a health care provider and have any questions regarding this report, please contact the number below. ??For patients who have questions please contact the health health care facilities inspector that requested your imaging first. ? Electronically signed by: Wayne Wise MD, [facility] ([phone]), at 05/23/2023 4:14 PM Narrative 05/23/2023 4:14 PM EST EXAMINATION: CT ABDOMEN AND PELVIS WO CONTRAST CLINICAL HISTORY: Aortic aneurysm (AAA), surveillance TECHNIQUE: Helical CT of the abdomen and pelvis without intravenous contrast. Oral contrast was not administered. Multiplanar reformatted images were generated. COMPARISON: CT abdomen pelvis without contrast 05/17/2022, 06/21/2020 FINDINGS: The absence of intravenous contrast limits the evaluation of solid viscera and vasculature. Lower chest: No nodules. Normal heart size. Coronary artery calcifications. No pleural effusion. Liver: Normal size and attenuation. Bile ducts: Nondilated. Gallbladder: Layering dependent hyperdense material may represent gallstone versus sludge. Normal caliber wall. Pancreas: Normal attenuation. Spleen: Normal size. Stable punctate calcifications. Adrenals: Normal. Right kidney/ureter: No collecting system dilation or calculi. Left kidney/ureter: No collecting system dilation. Punctate upper pole and interpolar calculi are unchanged from prior. Stable 1.5 cm interpolar cyst. Urinary Bladder: No bladder or proximal urethral calculi. Vasculature: Status post aortobiiliac aneurysm repair. The aneurysm sac proximal to the aortic bifurcation is unchanged, measuring 2.4 x 3.4 cm. The previously described proximal iliac area of dilation is not significant changed, measuring 2.2 x 2.3 cm Lymph Nodes: No enlarged lymph nodes. Bowel: Nondilated, no wall thickening. Normal appendix. Colonic diverticulosis without evidence of acute diverticulitis. Peritoneum and retroperitoneum: No free fluid or loculated fluid collection. No pneumoperitoneum. No mesenteric inflammation. Abdominal wall: Bilateral fat-containing inguinal hernias. Reproductive organs: Stable moderate prostatomegaly. Small prostate calcifications. Osseous structures: L3-L4 and L5-S1 degenerative disc disease. Mild lumbar spine levoconvex scoliosis. There is a Schmorl's node in the inferior L3 vertebral body. No suspicious lesions. Procedure Note Wayne Wise MD - 05/23/2023 EXAMINATION: CT ABDOMEN AND PELVIS WO CONTRAST CLINICAL HISTORY: Aortic aneurysm (AAA), surveillance TECHNIQUE: Helical CT of the abdomen and pelvis without intravenouscontrast. Oral contrast was not administered. Multiplanar reformatted images were generated. COMPARISON: CT abdomen pelvis without contrast 05/17/2022, 06/21/2020 FINDINGS: The absence of intravenous contrast limits the evaluation of solid visceraand vasculature. Lower chest: No nodules. Normal heart size. Coronary arterycalcifications. No pleural effusion. Liver: Normal size and attenuation. Bile ducts: Nondilated. Gallbladder: Layering dependent hyperdense material may representgallstone versus sludge. Normal caliber wall. Pancreas: Normal attenuation. Spleen: Normal size. Stable punctate calcifications. Adrenals: Normal. Right kidney/ureter: No collecting system dilation or calculi. Left kidney/ureter: No collecting system dilation. Punctate upper poleand interpolar calculi are unchanged from prior. Stable 1.5 cm interpolarcyst. Urinary Bladder: No bladder or proximal urethral calculi. Vasculature: Status post aortobiiliac aneurysm repair. The aneurysm sacproximal to the aortic bifurcation is unchanged, measuring 2.4 x 3.4 cm. Thepreviously described proximal iliac area of dilation is not significant changed,measuring 2.2 x 2.3 cm Lymph Nodes: No enlarged lymph nodes. Bowel: Nondilated, no wall thickening. Normal appendix. Colonicdiverticulosis without evidence of acute diverticulitis. Peritoneum and retroperitoneum: No free fluid or loculated fluidcollection. No pneumoperitoneum. No mesenteric inflammation. Abdominal wall: Bilateral fat-containing inguinal hernias. Reproductive organs: Stable moderate prostatomegaly. Small prostate calcifications. Osseous structures: L3-L4 and L5-S1 degenerative disc disease. Mild lumbarspine levoconvex scoliosis. There is a Schmorl's node in the inferior [id number] body. No suspicious lesions. IMPRESSION Unchanged size of aortic and iliac arteries status post repair. I have personally reviewed the image(s) and the resident's interpretationand agree with the findings, Wayne Wise MD at 05/23/2023 4:14 PM Thank you for letting us participate in the care of this patient. If youare a health care provider and have any questions regarding this report,please contact the number below. For patients who have questions please contactthe health health care facilities inspector that requested your imaging first. Helio Duke MD IMG CT ORDERABLES documented in this encounter Visit Diagnoses Diagnosis Juxtarenal abdominal aortic aneurysm (AAA) without rupture Juxtarenal abdominal aortic aneurysm (AAA) without rupture documented in this encounter Care Teams Motorized Squad Captain Relationship Specialty Start Date End Date Tr Hendrix DO [address] [place] [address] PCP - General Family Medicine 05/24/17 documented as of this encounter
--- OUTSIDE RECORDS SUMMARY | 2023-11-13 09:20 | XMS_ITS | Encounter Summary ---
[place] [address] Care Team Providers Care Music Department Chair Name Role Phone Tr Hendrix DO Primary Care Provider [phone] Reason for Referral * Diagnostic Test (Routine) - Closed Specialty Diagnoses / Procedures Referred By Contac t Referred To Contact Radiology Diagnoses Juxtarenal abdominal aortic aneurysm (AAA) without rupture Procedures CT Abdomen & Pelvis wo Helio Galloway MD [facility] [place] [address] [facility] [place] [address] Referral ID Status Reason Start Date Expiration Date V isits Requested Visits Authorized [id number] Closed Specialty Service Requested 05/17/2022 11/15/2023 1 1 Reason for Visit * Diagnostic Test (Routine) - Closed Specialty Diagnoses / Procedures Referred By Contac t Referred To Contact Radiology Diagnoses Juxtarenal abdominal aortic aneurysm (AAA) without rupture Procedures CT Abdomen & Pelvis wo Helio Galloway MD [facility] [place] [address] [facility] [place] [address] Referral ID Status Reason Start Date Expiration Date V isits Requested Visits Authorized [id number] Closed Specialty Service Requested 05/17/2022 11/15/2023 1 1 Encounter Details Date Type Department Care Team (Latest Contact Info) Description 05/23/2023 11:01 AM EST - 05/23/2023 11:59 PM EST Hospital Encounter CT Scan at [facility] [place] [address] Helio Duke MD [facility] [place] [address] Juxtarenal abdominal aortic aneurysm (AAA) without rupture Discharge Disposition: [...] Sig Dispensed Refills Start Date End Date metoprolol succinate XL (Toprol-XL) 25 mg ER 24 hr tablet 01/30/2023 terazosin (Hytrin) 10 mg capsule nightly. 03/07/2022 isosorbide mononitrate CR (Imdur) 30 mg Tablet Sustained Release 24 hrIndications:Coronary artery disease, unspecified vessel or lesion type, unspecified whether angina present, unspecified whether [place] or transplanted heart Take 1 tablet by [...] mg Tablet Extended Rel 24 hr 04/11/2019 ketoconazole (NIZORAL) 2 % Shampoo Apply as shampoo on a daily basis as needed 120 mL 5 09/27/2022 06/14/2023 terazosin (HYTRIN) 5 mg Capsule Bedtime 03/19/2017 06/14/2023 documented as of this encounter Plan of Treatment Upcoming Encounters Date Type Department Care Team (Late st Contact Info) Description 06/20/2024 10:00 AM EST Office Visit Dermatology at [place] [address] [address] Mustapha Lemos MD [address] [place] [address] documented as of this encounter Procedures Procedure Name Priority Date/Time Associated Diagnosis Comments CT ABDOMEN AND PELVIS WO CONTRAST Routine 05/23/2023 11:20 AM EST Juxtarenal abdominal aortic aneurysm (AAA) [...] who have questions please contact the health intensive care nurse that requested your imaging first. ? Narrative 05/23/2023 4:14 PM EST EXAMINATION: CT [...] is a Schmorl's node in the inferior [id number] body. No suspicious lesions. IMPRESSION Unchanged size [...] patients who have questions please contactthe health intensive care nurse that requested your imaging first. Helio Duke MD IMG CT ORDERABLES documented in this encounter Visit Diagnoses Diagnosis Juxtarenal abdominal aortic aneurysm (AAA) without rupture documented in this encounter Care Teams Music Department Chair Relationship Specialty Start Date End Date Tr Hendrix DO [address] [place] [address] PCP - General Family Medicine 05/24/17 documented as of this encounter
--- OUTSIDE RECORDS SUMMARY | 2023-11-13 09:20 | XMS_ITS | Encounter Summary ---
[place] [address] Care Team Providers Care Soft Iron Inspector Name Role Phone Tr Hendrix DO Primary Care Provider Encounter Details Date Type Department Care Team (Latest Contact Info) Description 06/13/2022 Travel Social History Tobacco Use Types Packs/Day [...] 10:00 AM EST Office Visit Dermatology at [place] [address] [facility] [place] [id number] Mustapha Lemos MD [address] [place] [address] documented as of this encounter Visit Diagnoses Not on filedocumented in this encounter Care Teams Soft Iron Inspector Relationship Specialty Start Date End Date Tr Hendrix DO [address] [facility] [place] [address] PCP - General Family Medicine 05/24/17 documented as of this encounter
--- OUTSIDE RECORDS SUMMARY | 2023-11-13 09:20 | XMS_ITS | Encounter Summary ---
[place] [address] Care Team Providers Care Wincher Name Role Phone Tr Hendrix DO Primary Care Provider [phone] Encounter Details Date Type Department Care Team (Latest Contact Info) Description 05/17/2022 12:30 PM EST Laboratory Appointment Lab [address] [place] [id number] HFrEF (heart failure with reduced ejection fraction); Abdominal aortic aneurysm (AAA) without rupture Social History [...] 10:00 AM EST Office Visit Dermatology at [place] [address] [place] [address] Mustapha Lemos MD [address] [facility] [place] [address] documented as of this encounter Procedures Procedure Name Priority Date/Time Associated Diagnosis Comments CREATININE STAT 05/17/2022 12:22 PM EST Abdominal aortic aneurysm (AAA) without rupture BASIC METABOLIC PANEL (NON-FASTING) Routine 05/17/2022 12:22 PM EST HFrEF (heart failure with reduced ejection fraction) documented in this encounter Results * Creatinine (05/17/2022 12:22 PM EST) Creatinine 1.10 0.80 - 1.50 mg/dL [facility] Estimated GFR 70 >=60 mL/min/1. 73 m?? [facility] Comment: This patient's estimated [...] and symptoms in addition to eGFR. Blood 05/17/2022 12:2 2 PM EST 05/17/2022 12:32 PM EST Narrative Resulting Agency Comment Spec In Lab Helio Duke MD CHEMISTRY ORDERABLES [facility] [place] [address] * (ABNORMAL) Basic Metabolic Panel (non-fasting) (05/17/2022 12:22 PM EST) Glucose Lvl 98 65 - 199 mg/dL [facility] Comment:Diabetes: >=200 mg/d L plus symptoms BUN 26(H) 10 - 20 mg/dL [facility] Creatinine 1.10 0.80 - 1.50 mg/dL [facility] Sodium 139 135 - 145 mmol/L [facility] Potassium 4.8 3.5 - 5.0 mmol/L [facility] Comment: Please note: ??Patients with WBC >100,000 may have falsely elevated Potassium levels. ??For accurate Potassium quantification in these patients send serum separator tube (gold top) for subsequent determinations. ??Contact the Clinical Chemistry Laboratory if there are any questions. Chloride 106 98 - 107 mmol/L [facility] CO2 27 22 - 31 mmol/L [facility] Anion Gap 6 5 - 15 mmol/L [facility] Calcium 9.4 8.5 - 10.5 mg/dL [facility] Estimated GFR 70 >=60 mL/min/1. 73 m?? [facility] Comment: This patient's estimated [...] and symptoms in addition to eGFR. Blood 05/17/2022 12:2 2 PM EST 05/17/2022 12:32 PM EST Narrative Resulting Agency Comment Spec In Lab Maury Duarte MD CHEMISTRY ORDERABLES Performing Organization Address City/State/[facility] Co de Phone Number [facility] [place] [address] documented in this encounter Visit Diagnoses Diagnosis HFrEF (heart failure with reduced ejection fraction) Abdominal aortic aneurysm (AAA) without rupture documented in this encounter Care Teams Wincher Relationship Specialty Start Date End Date Tr Hendrix [place] [address] PCP - General Family Medicine 05/24/17 documented as of this encounter
--- OUTSIDE RECORDS SUMMARY | 2023-11-13 09:20 | XMS_ITS | Encounter Summary ---
[place] [address] Care Team Providers Care Income Tax Manager Name Role Phone Tr Hendrix DO Primary Care Provider Encounter Details Date Type Department Care Team (Latest Contact Info) Description 06/14/2023 Travel Social History Tobacco Use Types Packs/Day [...] 10:00 AM EST Office Visit Dermatology at [place] [address] [facility] [place] [phone] Mustapha Lemos MD [address] [place] [address] documented as of this encounter Visit Diagnoses Not on filedocumented in this encounter Care Teams Income Tax Manager Relationship Specialty Start Date End Date Tr Hendrix DO [address] [facility] [place] [place] [address] PCP - General Family Medicine 05/24/17 documented as of this encounter
--- OUTSIDE RECORDS SUMMARY | 2023-11-13 09:21 | XMS_ITS | Encounter Summary ---
[place] [address] Care Team Providers Care Plywood Patcher Name Role Phone Tr Hendrix DO Primary Care Provider [phone] Encounter Details Date Type Department Care Team (Late st Contact Info) Description 03/07/2022 Orders Only [place] [address] Ailyn Wyman RN Coronary artery disease, unspecified vessel or lesion type, unspecified whether angina present, unspecified whether [place] or transplanted heart Social History Tobacco Use Types Packs/Day Years [...] 10:00 AM EST Office Visit Dermatology at [place] [address] [place] [address] Mustapha Lemos MD [address] [facility] [place] [address] documented as of this encounter Visit Diagnoses Diagnosis Coronary artery disease, unspecified vessel or lesion type, unspecified whether angina present, unspecified whether [place] or transplanted heart documented in this encounter Care Teams Plywood Patcher Relationship Specialty Start Date End Date Tr Hendrix DO [address] [place] [address] PCP - General Family Medicine 05/24/17 documented as of this encounter
--- OUTSIDE RECORDS SUMMARY | 2023-11-13 09:21 | XMS_ITS | Encounter Summary ---
Author Organization [place] [address] Care Team Providers Care Factory Manager Name Role Phone Ruma Tr Zambrano DO Primary Care Provider [phone] Reason for Visit * Reason Onset Date Comments Medication Refill 10/08/2020 Encounter Details Date Type Department Care Team (Late st Contact Info) Description 10/08/2020 Refill Cardiology at [address] [address] Maury Duarte MD [facility] [place] [address] Medication Refill Social History Tobacco Use Types Packs/Day Years [...] 10:00 AM EST Office Visit Dermatology at [place] [address] [place] [address] Mustapha Lemos MD [address] [facility] [place] [address] documented as of this encounter Visit Diagnoses Diagnosis Heart failure with reduced ejection fraction- Primary documented in this encounter Care Teams Factory Manager Relationship Specialty Start Date End Date Tr Hendrix DO [address] [place] [address] PCP - General Family Medicine 05/24/17 documented as of this encounter
--- OUTSIDE RECORDS SUMMARY | 2023-11-13 09:21 | XMS_ITS | Encounter Summary ---
Author Organization [facility] [place] [address] Care Team Providers Care Nuclear Test Technician Name Role Phone Tr Hendrix DO Primary Care Provider [phone] Encounter Details Date Type Department Care Team (Late st Contact Info) Description 06/23/2020 Telephone Cardiology at [address] [address] Faby Good, RN Social History [...] Telephone Encounter - Faby Good RN - 06/23/2020 9:20 AM EST Patient was called in F/U to his report of itchy skin and rash that may have started when he began to take Entresto last month. He says the sx started about a week after taking his first dose. Patient states the itching is tolerable and he has some rash spots on his abd. and back but overall he is not bothered by it too much. He just felt he should report it and he wondered if it was a side effect of the medication. Side effects were reviewed including the more remote ones that he may fall under. Patient says he's tried using Lidocaine cream which helps a little and he also reports that the sx have lessened since a few weeks ago. He is willing to take a wait and watch approach for now knowing the the Entresto is likely helping him with his HF. Patient agrees to call team nurse for any worsening sx and he can also check in with his PCP. Patient requests that his lab orders be faxed up to [facility] which is closer to where he lives ( will be donetoday). Faby Purvis RNenvironmental solutions engineer Cardiovascular Clinic General TeamEl documented in this encounter Plan of Treatment Upcoming Encounters Date Type Department Care Team (Late st Contact Info) Description 06/20/2024 10:00 AM EST Office Visit Dermatology at [place] [address] [place] [address] Mustapha Lemos MD [address] [facility] [place] [address] documented as of this encounter Visit Diagnoses Not on filedocumented in this encounter Care Teams Nuclear Test Technician Relationship Specialty Start Date End Date Tr Hendrix DO [address] [place] [address] PCP - General Family Medicine 05/24/17 documented as of this encounter
--- OUTSIDE RECORDS SUMMARY | 2023-11-13 09:21 | XMS_ITS | Encounter Summary ---
Author Organization [facility] [place] [address] Care Team Providers Care Bone Char Puller Name Role Phone Tr Hendrix DO Primary Care Provider [phone] Encounter Details Date Type Department Care Team (Late st Contact Info) Description 09/29/2020 Telephone Cardiology at [address] [address] Faby Good, RN Social History [...] Telephone Encounter - Faby Good RN - 09/29/2020 10:42 AM EDT Patient called to report his BP readings the last 2 weeks. He was unable to reach anyone in IT to help him set up his Media access on his portal. Recent readings are in the morning one hour after his morning medications. He relays taking 1.5 tablets of the Entresto at this time: 09/15- 135/52 09/16- 146/57 09/17- 114/51 09/18- 112/52 09/19- 126/60 09/20- 123/75 09/21- 128/68 5/26- 124/61 09/23- 137/55 09/24- 136/66 5- 121/57 530- 129/57 Faby Purvis RNverification clerk [facility] documented in this encounter Plan of Treatment Upcoming Encounters Date Type Department Care Team (Late st Contact Info) Description 06/20/2024 10:00 AM EST Office Visit Dermatology at [place] [address] [place] [address] Mutsapha Lemos MD [address] [place] [address] documented as of this encounter Visit Diagnoses Not on filedocumented in this encounter Care Teams Bone Char Puller Relationship Specialty Start Date End Date Tr Hendrix DO [address] [place] [address] PCP - General Family Medicine 05/24/17 documented as of this encounter
--- OUTSIDE RECORDS SUMMARY | 2023-11-13 09:21 | XMS_ITS | Encounter Summary ---
Author Organization [facility] [place] [address] Care Team Providers Care Brewery Cellar Worker Name Role Phone Tr Hendrix DO Primary Care Provider [phone] Reason for Visit * Reason Onset Date Comments Medication Refill 02/14/2022 [facility] [place] [facility] Encounter Details Date Type Department Care Team (Late st Contact Info) Description 02/14/2022 Telephone Cardiology at [address] [phone] Melissa Koenig, elastic attacher coverstitch Refill ([facility] [place] [facility] ) Social History Tobacco Use Types Packs/Day Years [...] encounter Miscellaneous Notes * Telephone Encounter - Melissa Koenig RN - 02/14/2022 12:47 PM EDT Chart reviewed LV 01-11-22 Plan: 1. Continue aspirin 81 mg daily, metoprolol succinate 12.5 mg daily, Entresto 49-51 mg twice daily,Imdur 30 mg daily, atorvastatin 80 mg daily. 2. BMP today. 3. Return to clinic in 1 year, or sooner if necessary. New script sent 02-06-22 to [facility] ?? documented in this encounter Plan of Treatment Upcoming Encounters Date Type Department Care Team (Late st Contact Info) Description 06/20/2024 10:00 AM EST Office Visit Dermatology at [place] [address] [place] [address] Mustapha Lemos MD [address] [facility] [place] [address] documented as of this encounter Visit Diagnoses Not on filedocumented in this encounter Care Teams Brewery Cellar Worker Relationship Specialty Start Date End Date Tr Hendrix DO [address] [place] [address] PCP - General Family Medicine 05/24/17 documented as of this encounter
--- OUTSIDE RECORDS SUMMARY | 2023-11-13 09:21 | XMS_ITS | Encounter Summary ---
Author [place] [address] Care Team Providers Care Radiation Oncologist Name Role Phone Tr Hendrix DO Primary Care Provider [phone] Encounter Details Date Type Department Care Team (Late st Contact Info) Description 02/06/2022 Orders [place] [address] Ailyn Wyman, RN Social History Tobacco Use Types Packs/Day [...] 10:00 AM EST Office Visit Dermatology at [place] [address] [place] [address] Mustapha Lemos MD [address] [place] [address] documented as of this encounter Visit Diagnoses Not on filedocumented in this encounter Care Teams Radiation Oncologist Relationship Specialty Start Date End Date Tr Hendrix DO [facility] [address] [place], [place] [phone] PCP - General Family Medicine 05/24/17 documented as of this encounter
--- OUTSIDE RECORDS SUMMARY | 2023-11-13 09:21 | XMS_ITS | Encounter Summary ---
Author Organization [facility] Address [facility] [place] [address] Care Team Providers Care Pickle Maker Name Role Phone Heberjennifer Tr Zambrano DO Primary Care Provider [phone] Encounter Details Date Type Department Care Team (Late st Contact Info) Description 12/30/2020 Orders Only Cardiology at [address] [address] Maury Duarte MD [facility] [place] [address] Stable angina; HFrEF (heart failure with reduced ejection fraction) Social History Tobacco Use Types Packs/Day Years [...] 10:00 AM EST Office Visit Dermatology at [place] [address] [place] [phone] Mustapha Lemos MD [address] [facility] [place] [address] documented as of this encounter Results * Nuclear Pharmacologic Stress Cardiology (01/07/2021 10:48 AM EDT) Anatomical Region Laterality Modality Other Maury Duarte MD [facility] documented in this encounter Visit Diagnoses Diagnosis Stable angina Other and unspecified angina pectoris HFrEF (heart failure with reduced ejection fraction) documented in this encounter Care Teams Pickle Maker Relationship Specialty Start Date End Date Tr Hendrix DO [address] [place] [address] PCP - General Family Medicine 05/24/17 documented as of this encounter
--- OUTSIDE RECORDS SUMMARY | 2023-11-13 09:21 | XMS_ITS | Encounter Summary ---
Author Organization [facility] Address [facility] [place] [address] Care Team Providers Care Dispatcher Maintenance Service Name Role Phone HeberjenniferTr DO Primary Care Provider [phone] Reason for Visit * Reason Comments Medication Refill Encounter Details Date Type Department Care Team (Late st Contact Info) Description 02/04/2022 Refill Cardiology at [address] [address] Maury Duarte MD [facility] [place] [address] Medication Refill Social History Tobacco Use Types [...] 10:00 AM EST Office Visit Dermatology at [place] [address] [place] [phone] Mustapha Lemos MD [address] [facility] [place] [address] documented as of this encounter Visit Diagnoses Diagnosis Coronary artery disease, unspecified vessel or lesion type, unspecified whether angina present, unspecified whether pechanga or transplanted heart- Primary documented in this encounter Care Teams Dispatcher Maintenance Service Relationship Specialty Start Date End Date Tr Hendrix DO [address] [place] [address] PCP - General Family Medicine 05/24/17 documented as of this encounter
--- OUTSIDE RECORDS SUMMARY | 2023-11-13 09:21 | XMS_ITS | Encounter Summary ---
[place] [address] Care Team Providers Care Cardiovascular Lab Director Name Role Phone Tr Hendrix DO Primary Care Provider [phone] Reason for Referral * Diagnostic Test (Routine) - Closed Specialty Diagnoses / Procedures Referred By Contac t Referred To Contact Radiology Diagnoses Abdominal aortic aneurysm (AAA) without rupture Procedures CT Abdomen & Pelvis wo Contrast Helio Duke MD [facility] [place] [address] [facility] [place] [address] Referral ID Status Reason Start Date Expiration Date V isits Requested Visits Authorized [id number] Closed Specialty Service Requested 06/21/2020 12/19/2021 1 1 Encounter Details Date Type Department Care Team (Late st Contact Info) Description 06/21/2020 3:30 PM EST Office Visit [place] [address] Helio Duke MD [facility] [address] Abdominal aortic aneurysm (AAA) without rupture; Iliac artery aneurysm; Hypertension, unspecified type Social History Tobacco Use Types Packs/Day Years [...] Sign Reading Time Taken Comments Blood Pressure 139/68 06/21/2020 3:13 PM EST Pulse 61 06/21/2020 3:13 PM EST Temperature - - Respiratory Rate - - Oxygen Saturation - - Inhaled Oxygen Concentration - - Weight 93 kg (205 lb) 06/21/2020 3:13 PM EST Height 175.3 cm (5' 9) 06/21/2020 3:13 PM EST Body Mass Index 30.27 06/21/2020 3:13 PM EST documented in this encounter Progress Notes * Helio Duke MD - 06/21/2020 3:30 PM EST Vascular Surgery Clinic Visit Note [...] 39% with anterior/apical WMA.??Coronary angiography with RCA GLOBAL COMPENSATION DIRECTOR and proximal LCx lesion, s/p PCI to circumflexartery. He was discharged on GDMT with DAPT, BB, ARB, high intensity statin. Recently was switched to Entresto. Since then he notes diffuse skin rash and itching. Denies fevers or other symptoms. Specifically denies abdominal or back pain. Former smoker. Problem List: Patient Active Problem List Diagnosis ??? Accelerating angina ??? AAA (abdominal aortic [...] pMx ??? Hypertension Overview Note: on medication Medications: Current Outpatient Medications: ??? ketoconazole (NIZORAL) 2 % Shampoo, Apply as shampoo on a daily basis as needed, Disp: 120 mL, Rfl: PRN ??? sacubitriL-valsartan (Entresto) 24-26 mg Tablet tablet, Take 1 tablet by mouth 2 times daily., Disp: 60 tablet, Rfl: 12 ??? clopidogreL (Plavix) 75 mg Tablet, Take 1 tablet by mouth daily., Disp: 90 tablet, Rfl: 3 ??? metoprolol succinate XL (Toprol-XL) 25 mg Tablet Sustained Release 24 hr, Take 0.5 tablets by mouth daily., Disp: 30 tablet, Rfl: 5 ??? nitroGLYcerin (Nitrostat) 0.4 mg Tablet, Sublingual, Place 1 tablet under the tongue every 5 minutes as needed for Chest pain., Disp: 20 tablet, Rfl: 0 ??? aspirin 81 mg Tablet, Chewable, Take 81 mg by mouth daily., Disp: 30 tablet, Rfl: 3 ??? oxybutynin XL (Ditropan-XL) 5 mg Tablet Extended Rel 24 hr, , Disp: , Rfl: ??? pimecrolimus (ELIDEL) 1 % Cream, Apply 1-2 times daily to affected facial and presternal chest sites, Disp: 30 g, Rfl: 5 ??? amLODIPine (NORVASC) 5 mg Tablet, Take 1 tablet by mouth daily., Disp: 30 tablet, Rfl: 0 ??? terazosin (HYTRIN) 5 mg Capsule, Bedtime, Disp: , Rfl: ??? atorvastatin (LIPITOR) 80 mg Tablet, Take 80 mg by mouth daily., Disp: , Rfl: ??? polyethylene glycoL (Miralax) 17 gram/dose Powder, USE DIRECTED FOR COLONOSCOPY PREP, Disp: , Rfl: ??? losartan (Cozaar) 25 mg Tablet, Take 25 mg by mouth daily., Disp: , Rfl: Patient Medical, Surgical, and Social History updated and reviewed in eDH. Physical Exam: Temp: -- Heart Rate: [61] Resp: -- BP: (139)/(68) SpO2: -- Heart Rate from SpO2: -- Estimated body mass index is 30.27 kg/m?? as calculated from the following: Height as of this encounter: 175.3 cm (5' 9). Weight as of this encounter: 93 kg (205 lb). General: NAD, appears well Neuro: Alert and oriented, motor sensory grossly intact in all extremities, CN 2-12 normal Ear, Nose, Throat: No masses or lesions Skin: No lesions or abnormal markings. Small petechial raised rash over lower torso. No excoriations. Lungs: CTA Heart: RRR Abd - Soft, NT, ND, Aortic pulse is palpable and not appreciably aneurysmal. No hernias. Musculoskeletal- full ROM upper and lower extremities Psych- alert oriented X3 Extremity - [place], warm, no ulceration, brisk capillary refill, no edema Vascular: Palpable bilateral radial, carotid, femoral, and pedal pulses. No carotid bruits. No appreciable popliteal aneurysms. Studies: Images personally reviewed by myself today. CT abdomen/pelvis today with intact aneurysm repair. No PSA. L hypo aneurysm about 2.0cm today versus 1.8cm one year ago. Assessment/Plan: Mr. Nolasco is doing well from an aneurysm standpoint. His repair remains intact without issue. His left hypo aneurysm remains small and below threshold for repair. No activity restrictions. Continue medical therapy with BP control. No longer smokes. Cont also statin therapy. Will copy this note to Dr. Duarte as pt is concerned about Entresto as cause of persistent skin itching and torso rash. He has f/u coming up in July. F/u for his aneurysm repair will be in one year with repeat non-con CT abdomen/pelvis. Helio Duke MD, MS Section of Vascular Surgery documented in this encounter Plan of Treatment Upcoming Encounters Date Type Department Care Team (Late st Contact Info) Description 06/20/2024 10:00 AM EST Office Visit Dermatology at [place] [address] [place] [phone] Mustapha Lemos MD [address] [address] documented as of this encounter Results * CT Abdomen & Pelvis wo Contrast (05/17/2022 2:17 PM EST) Anatomical Region Laterality Modality Abdomen, Pelvis Computed Tomogra phy Impressions 05/18/2022 8:49 AM EST 1. ??Unchanged size of the aorta and iliac artery graft status post repair when compared to 06/21/2020, with collapse of the [place] aneurysm sac when compared to 06/20/2019. 2. [...] who have questions please contact the health primary care physician that requested your imaging first. ? Narrative 05/18/2022 8:49 AM EST EXAMINATION: CT [...] 3.2 x 2.6 cm dilation of the [place] aneurysm sac just above the aortic bifurcation [...] Unchanged 3.2 x 2.6 cmdilation of the [place] aneurysm sac just above the aortic bifurcation when comparedto 06/21/2020 but decreased in caliber compared to 06/20/2019. Unchanged 2.3 x2 cm dilation of the proximal left internal iliac artery (axial series 3 [id number]). Lymph Nodes: No enlarged lymph nodes. Bowel: [...] compared to 06/21/2020, with collapse of the [place] aneurysm sac whencompared to 06/20/2019. 2. Unchanged [...] patients who have questions please contactthe health primary care physician that requested your imaging first. Helio Duke MD IMG CT ORDERABLES * Creatinine (05/17/2022 12:22 PM EST) Creatinine 1.10 0.80 - 1.50 mg/dL [facility] Estimated GFR 70 >=60 mL/min/1. 73 m?? 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
--- OUTSIDE RECORDS SUMMARY | 2023-11-13 09:21 | XMS_ITS | Encounter Summary ---
Author Organization [facility] [place] [address] Care Team Providers Care Wanigan Clerk Name Role Phone Tr Hendrix DO Primary Care Provider [phone] Reason for Referral * Diagnostic Test (Routine) - Closed Specialty Diagnoses / Procedures Referred By Contac t Referred To Contact Cardiology Diagnoses HFrEF (heart failure with reduced ejection fraction) Procedures Echocardiogram Transthoracic([facility] or [facility]) Maury Duarte MD [facility] [address] [facility] [place] [address] Referral ID Status Reason Start Date Expiration Date V isits Requested Visits Authorized [id number] Closed Specialty Service Requested 06/03/2021 06/03/2022 1 1 Reason for Visit * Diagnostic Test (Routine) - Closed Specialty Diagnoses / Procedures Referred By Contac t Referred To Contact Cardiology Diagnoses HFrEF (heart failure with reduced ejection fraction) Procedures Echocardiogram Transthoracic([facility] or [facility]) Maury Duarte MD [facility] [address] [facility] [place] [address] Referral ID Status Reason Start Date Expiration Date V isits Requested Visits Authorized [id number] Closed Specialty Service Requested 06/03/2021 06/03/2022 1 1 Encounter Details Date Type Department Care Team (Latest Contact Info) Description 01/11/2022 9:45 AM EDT - 01/11/2022 11:59 PM EDT Hospital Encounter Non-Invasive Cardiology Lab [facility] [place] [address] Maury Duarte MD [facility] [place] [address] HFrEF (heart failure with reduced ejection fraction) Discharge Disposition: Home Social History Tobacco Use [...] Sig Dispensed Refills Start Date End Date nitroGLYcerin (Nitrostat) 0.[address], Sub[address]ual [address] [...] mg Tablet Extended Rel 24 hr 04/11/2019 sacubitriL-valsartan (Entresto) 49-51 mg Tablet tabletIndications:Heart failure with reduced ejection fraction Take 1 tablet by mouth 2 times daily. 180 tablet 12/05/2021 02/23/2022 isosorbide mononitrate CR (Imdur) 30 mg Tablet Sustained Release 24 hrIndications:Coronary artery disease, unspecified vessel or lesion type, unspecified whether angina present, unspecified whether [place] or transplanted heart TAKE 1 TABLET BY MOUTH DAILY 90 tablet 1 08/10/2021 02/06/2022 ketoconazole (NIZORAL) 2 % Shampoo Apply as shampoo on a daily basis as needed 120 mL 5 06/09/2021 09/27/2022 metoprolol succinate XL (Toprol-XL) 25 mg Tablet Sustained Release 24 hr Take 0.5 tablets by mouth daily. 30 tablet 5 02/14/2021 02/02/2022 terazosin (HYTRIN) 5 mg Capsule Bedtime 03/19/2017 06/14/2023 documented as of this encounter Plan of Treatment Upcoming Encounters Date Type Department Care Team (Late st Contact Info) Description 06/20/2024 10:00 AM EST Office Visit [facility]ology at [place] [address] [place] [id number] Mustapha Lemos MD [address] [facility] [place] [address] documented as of this encounter Procedures Procedure Name Priority Date/Time Associated Diagnosis Comments ECHO COMPLETE Routine 01/11/2022 11:09 AM EDT HFrEF (heart failure with reduced ejection fraction) documented in this encounter Results * ECHO COMPLETE (01/11/2022 11:09 AM EDT) EF 48 HEARTLAB SYSTEM Anatomical Region Laterality Modality Cardiac Other 01/11/2022 10:0 2 AM EDT Narrative 01/11/2022 11:19 AM EDT ? Echocardiogram Report Name: STORM NOLASCO ?Study Date: 01/11/2022 10:02 AMBP: 142/54 mmHg ? Patient Location: : 1945 ? Height: 69 in ? Account: [id number] Age: 76 yrs ? Weight: 198 lb Gender: Male ?BSA: 2.1 m2 Ordering Physician: MAURY DUARTE Referring Physician: MAURY DUARTE Performed By: Henry Florentino RDCS Reason For Study: HFrEF Exam Location: [facility]. Interpretation Summary -Left ventricle is of normal size. Wall thickness is normal. Left ventricular systolic function is mildly reduced. The left ventricular ejection fraction is 48% by Chen's biplane. There are segmental wall motion abnormalities. There is abnormal septal motion associated with left bundle branch block. -The right ventricle is of normal size. Right ventricular systolic function is normal. -There is no hemodynamically significant valve disease. -The aortic root at the level of the sinuses of Valsalva is mildly dilated. The diameter at the level of the sinuses of Valsalva is 3.9 cm. The ascending aorta is mildly dilated. The maximum diameter of the ascending aorta is 3.6 cm. -No significant change compared to the prior study from 08/30/20. Procedure Complete-[id number]. Satisfactory quality. Irregular rhythm. Left Ventricle Left ventricle is of normal size. Wall thickness is normal. Left ventricular systolic function is mildly reduced. The left ventricular ejection fraction is 48% by Chen's biplane. There are segmental wall motion abnormalities. There is abnormal septal motion associated with left bundle branch block. Right Ventricle The right ventricle is of normal size. Right ventricular systolic function is normal. Left Atrium The left atrium is normal. No abnormality of the interatrial septum is identified. Right Atrium The right atrium is probably normal in size. Aortic Valve The aortic valve is tricuspid. The aortic valve is mildly thickened. There is no aortic stenosis. There is trace aortic regurgitation. Mitral Valve The mitral valve is structurally and functionally normal. There is no mitral stenosis. There is trace mitral regurgitation. Tricuspid Valve The tricuspid valve is structurally and functionally normal. There is no tricuspid stenosis. There is trace tricuspid regurgitation. Pulmonic Valve The pulmonic valve appears to be structurally and functionally normal. There is no valvular pulmonic stenosis. There is trace pulmonic valve regurgitation. Great Arteries The aortic root at the level of the sinuses of Valsalva is mildly dilated. The diameter at the level of the sinuses of Valsalva is 3.9 cm. The ascending aorta is mildly dilated. The maximum diameter of the ascending aorta is 3.6 cm. Venous Inferior vena cava is not well visualized. Pericardium/Pleural The pericardium appears normal. Hemodynamics Pulmonary artery hypertension could not be assessed due to inadequate tricuspid regurgitation jet. Left ventricular diastolic function is normal. Ejection Fraction ?2D Measurements ? Volumes EF(MOD-bp): 48.2 % ?IVSd: 1.1 cm ? LAV(MOD- bp) Indexed: ?LVIDd: 5.5 cm ?LVIDs: 3.8 cm ?31.1 ml/m2 ?LVPWd: 1.2 cm ?EDV (MOD-bp) Index: 59.9 ? ESV (MOD-bp) Index: 31.0 ?LV mass(C)d: 248.2 grams ? SV(LVOT): 73.6 ml ?LV mass(C)dI: 120.7 grams/m2 ?? SI(LVOT): 35.8 ml/m2 ?Ao root diam: 3.9 cm ?Ao root diam index: 1.9 ?asc Aorta Diam: 3.6 cm ?LVOT diam: 2.2 cm ?TAPSE_phl: 2.2 cm Doppler LV V1 VTI: 19.2 cm Ao V2 VTI: 28.1 cm Ao Max: 131.7 cm/sec Ao valve max: 6.9 mmHg Ao valve mean: 3.7 mmHg MV E max fantasma: 50.6 cm/sec MV A max fantasma: 90.0 cm/sec MV E/A: 0.56 MV dec time: 0.17 sec Lat Peak E' Fantasma: 5.8 cm/sec E/ e' (lat): 8.8 Med Peak E' Fantasma: 5.3 cm/sec E/e' (med): 9.5 E/e' Average: 9.1 SP(I,D): 2.6 cm2 Dimensionless index Aov: 0.68 I ?WMSI = 1.56 ? % Normal = 44 ?Segments ??Size X - Cannot ?2 - ?4 - ?1-2 ? small Interpret ?1 - Normal ?? Hypokinetic 3 - Akinetic Dyskinetic ?? 3-5 ? moderate 5 - ? 6-14 ?large Aneurysmal ?15-16 ?? diffuse Procedure Note Valdemar Santiago MD - 01/11/2022 Echocardiogram Report Name: STORM NOLASCO Study Date: 0:02 AMBP: 142/54 mmHg Patient Location: : 1945 Height: 69 in Account: [id number] Age: 76 yrs Weight: 198 lb Gender: Male BSA: 2.1 m2 Ordering Physician: MAURY DUARTE Referring Physician: MAURY DUARTE Performed By: Henry Florentino RDCS Reason For Study: HFrEF Exam Location: [facility]. Interpretation Summary -Left ventricle is of normal size. Wall thickness is normal. Leftventricular systolic function is mildly reduced. The left ventricular ejectionfraction is 48% by Chen's biplane. There are segmental wall motion abnormalities. Thereis abnormal septal motion associated with left bundle branch block. -The right ventricle is of normal size. Right ventricular systolicfunction is normal. -There is no hemodynamically significant valve disease. -The aortic root at the level of the sinuses of Valsalva is mildlydilated. The diameter at the level of the sinuses of Valsalva is 3.9 cm. The ascendingaorta is mildly dilated. The maximum diameter of the ascending aorta is 3.6 cm. -No significant change compared to the prior study from 08/30/20. Procedure Complete-[id number]. Satisfactory quality. Irregular rhythm. Left Ventricle Left ventricle is of normal size. Wall thickness is normal. Leftventricular systolic function is mildly reduced. The left ventricular ejectionfraction is 48% by Chen's biplane. There are segmental wall motion abnormalities. Thereis abnormal septal motion associated with left bundle branch block. Right Ventricle The right ventricle is of normal size. Right ventricular systolic functionis normal. Left Atrium The left atrium is normal. No abnormality of the interatrial septum isidentified. Right Atrium The right atrium is probably normal in size. Aortic Valve The aortic valve is tricuspid. The aortic valve is mildly thickened. Thereis no aortic stenosis. There is trace aortic regurgitation. Mitral Valve The mitral valve is structurally and functionally normal. There is nomitral stenosis. There is trace mitral regurgitation. Tricuspid Valve The tricuspid valve is structurally and functionally normal. There is notricuspid stenosis. There is trace tricuspid regurgitation. Pulmonic Valve The pulmonic valve appears to be structurally and functionally normal.There is no valvular pulmonic stenosis. There is trace pulmonic valve regurgitation. Great Arteries The aortic root at the level of the sinuses of Valsalva is mildly dilated.The diameter at the level of the sinuses of Valsalva is 3.9 cm. The ascendingaorta is mildly dilated. The maximum diameter of the ascending aorta is 3.6 cm. Venous Inferior vena cava is not well visualized. Pericardium/Pleural The pericardium appears normal. Hemodynamics Pulmonary artery hypertension could not be assessed due to inadequatetricuspid regurgitation jet. Left ventricular diastolic function is normal. Ejection Fraction 2D Measurements Volumes EF(MOD-bp): 48.2 % IVSd: 1.1 cm LAV(MOD-bp)Indexed: LVIDd: 5.5 cm LVIDs: 3.8 cm 31.1 ml/m2 LVPWd: 1.2 cm EDV (MOD-bp)Index: 59.9 ESV (MOD-bp)Index: 31.0 LV mass(C)d: 248.2 grams SV(LVOT): 73.6ml LV mass(C)dI: 120.7 grams/m2 SI(LVOT): 35.8ml/m2 Ao root diam: 3.9 cm Ao root diam index: 1.9 asc Aorta Diam: 3.6 cm LVOT diam: 2.2 cm TAPSE_phl: 2.2 cm Doppler LV V1 VTI: 19.2 cm Ao V2 VTI: 28.1 cm Ao Max: 131.7 cm/sec Ao valve max: 6.9 mmHg Ao valve mean: 3.7 mmHg MV E max fantasma: 50.6 cm/sec MV A max fantasma: 90.0 cm/sec MV E/A: 0.56 MV dec time: 0.17 sec Lat Peak E' Fantasma: 5.8 cm/sec E/ e' (lat): 8.8 Med Peak E' Fantasma: 5.3 cm/sec E/e' (med): 9.5 E/e' Average: 9.1 SP(I,D): 2.6 cm2 Dimensionless index Aov: 0.68 I WMSI = 1.56 % Normal = 44 SegmentsSize X - Cannot 2 - 4 - 1-2small Interpret 1 - Normal Hypokinetic 3 - Akinetic Dyskinetic 3-5moderate 5 - 6-14large Aneurysmal 15-16diffuse Maury Duarte MD ECHO ORDERABLES documented in this encounter Visit Diagnoses Diagnosis HFrEF (heart failure with reduced ejection fraction) documented in this encounter Care Teams Wanigan Clerk Relationship Specialty Start Date End Date Tr Hendrix DO [address] [place] [address] PCP - General Family Medicine 05/24/17 documented as of this encounter
--- OUTSIDE RECORDS SUMMARY | 2023-11-13 09:21 | XMS_ITS | Encounter Summary ---
Author Organization [facility] [place] [address] Care Team Providers Care College Intern Name Role Phone Tr Hendrix DO Primary Care Provider [phone] Reason for Visit * Reason Comments Congestive Heart Failure Follow-up Coronary Artery Disease Encounter Details Date Type Department Care Team (Latest Contact Info) Description 01/11/2022 11:40 AM EDT Office Visit Cardiology at [address] [address] Maury Duarte MD [facility] [place] [address] Coronary artery disease, unspecified vessel or lesion type, unspecified whether angina present, unspecified whether point hope ira or transplanted heart; HFrEF (heart failure with reduced ejection fraction); ASCVD (arteriosclerotic cardiovascular disease) Social History Tobacco Use Types Packs/Day Years [...] Sign Reading Time Taken Comments Blood Pressure 115/56 01/11/2022 11:12 AM EDT Pulse 59 01/11/2022 11:12 AM EDT Temperature - - Respiratory Rate - - Oxygen Saturation 96% 01/11/2022 11:12 AM EDT Inhaled Oxygen Concentration - - Weight 95.3 kg (210 lb) 01/11/2022 11:12 AM EDT Height 175.3 cm (5' 9) 01/11/2022 11:12 AM EDT Body Mass Index 31.01 01/11/2022 11:12 AM EDT documented in this encounter Progress Notes * Maury Duarte MD - 01/11/2022 11:40 AM EDT Images from the original note were not included. Formerly [facility] [place] [address] [place] [address] CARDIOVASCULAR MEDICINE OUTPATIENT CONSULTATION Storm Nolasco [id number] 01/11/2022 REFERRING PROVIDER: Tr Hendrix CHIEF COMPLAINT: Chief Complaint Patient presents with ??? Congestive Heart Failure ??? Follow-up ??? Coronary Artery Disease PROBLEM LIST Patient Active Problem List Diagnosis ??? Coronary [...] urinary obstruction ??? Malignant melanoma of skin of the left flank ---Pathologic Diagnosis--- Specimen: [...] TNM Codes: pT1b pNx pMx ??? Hypertension on medication ??? 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 His EF is ~40%. I last talked to him via telehealth on 06/03/2021. At that time, we stopped Plavix. Since her last visit, he overall has been doing well cardiac shen. He is more limited by hip pain due to osteoarthritis but he denies angina, shortness of breath, PND, orthopnea, lower extremity edema, presyncope or syncope. His blood pressure is well controlled. TTE today with LVEF 48% with abnormal septal motion due to LBBB. REVIEW OF SYSTEMS: All others negative except as stated in the HPI. PAST MEDICAL HISTORY: HTN HLD CAD HFrEF SOCIAL HISTORY: Social History Tobacco Use ??? Smoking status: Former Smoker Packs/day: 1.00 Years: 50.00 Pack years: 50.00 Types: Cigarettes Quit date: 07/30/2015 Years since quittin.4 ??? Smokeless tobacco: Never Used Substance Use Topics ??? Alcohol use: Yes Alcohol/week: 14.0 standard drinks Types: 14 Glasses of wine per week MEDICATIONS: Current Outpatient Medications Medication Sig Dispense Refill ??? sacubitriL-valsartan (Entresto) 49-51 mg Tablet tablet Take 1 tablet by mouth 2 times daily. 180 tablet 0 ??? isosorbide mononitrate CR (Imdur) 30 mg Tablet Sustained Release 24 hr TAKE 1 TABLET BY MOUTH DAILY 90 tablet 1 ??? ketoconazole (NIZORAL) 2 % Shampoo Apply as shampoo on a daily basis as needed 120 mL 5 ??? nitroGLYcerin (Nitrostat) 0.4 mg Tablet, Sublingual Place 1 tablet under the tongue every 5 minutes as needed for Chest pain. 20 tablet 3 ??? atorvastatin (Lipitor) 80 mg Tablet Take 1 tablet by mouth daily. 90 tablet 3 ??? metoprolol succinate XL (Toprol-XL) 25 mg Tablet Sustained Release 24 hr Take 0.5 tablets by mouth daily. 30 tablet 5 ??? aspirin 81 mg Tablet, Chewable Take 81 mg by mouth daily. 30 tablet 3 ??? oxybutynin XL (Ditropan-XL) 5 mg Tablet Extended Rel 24 hr ??? terazosin (HYTRIN) 5 mg Capsule Bedtime No current facility-administered medications for this visit. ALLERGIES: Venom-honey bee, Hydrochlorothiazide, and Lisinopril PHYSICAL EXAMINATION: Vital Signs: BP 115/56 Pulse 59 Ht 175.3 cm (5' 9) Wt 95.3 kg (210 lb) SpO2 96% BMI 31.01 kg/m?? Exam Details: General: Pleasant 76 y.o.man in no acute distress Eyes: No scleral icterus ENT: Moist mucous membranes Heart: Regular rate and rhythm, normal S1/S2, no murmurs/rubs/gallops appreciated Lungs: Clear to ascultation bilaterally Abdomen: Soft, non-tender, non-distended, normoactive bowel sounds noted. Extremities: No peripheral edema noted. No ulcerations noted. Neuro: No gross abnormalities noted Psych: Alert and oriented 3 x, normal affect DATA PERSONALLY REVIEWED: EKG?? 01/11/2022: NSR 60 bpm, LBBB ?? TTE??03/15/2020: 1. The left ventricular chamber size is normal. Borderline concentric left ventricular hypertrophy is observed. ??There are left ventricular segmental wall motion abnormalities present, as shown in the diagram below. ??The visually estimated left ventricular ejection fraction is 40%. The quantitative left ventricular ejection fraction by biplane Chen's method is 39%. Doppler assessment is consistent with elevated left sided filling pressure. 2. The right ventricle is normal in size. Right ventricular global systolic function is normal. 3. The left atrium is mildly dilated. The right atrium appears normal. 4. There is mild (1+/4+) mitral regurgitation present. 5. Pulmonary artery hypertension could not be assessed due to inadequate tricuspid regurgitation jet. 6. There is moderate dilatation of the aortic root. 4.3 cm 7. See remainder of report for additional findings. ?? TTE 08/30/2020: 1. The left ventricle is mildly dilated (LVEDVI 87 ml/m2 by 3D). Left ventricular wall thickness is normal. Global left ventricular systolic function is moderately reduced with the quantitative left ventricular ejection fraction by 3-D rendering of 39%. There are left ventricular segmental wall motion abnormalities present, as shown in the diagram below. Doppler assessment is consistent with normal left sided filling pressure. 2. The right ventricle is normal in size and function. Pulmonary artery hypertension could not be assessed due to inadequate tricuspid regurgitation jet. 3. The atria are normal in size. 4. There is no hemodynamically significant valvular disease present. 5. Please see the body of report for additional details. 6. There is mild dilatation of the aortic root (3.7 cm) and ascending aorta (3.6 cm). 7. Compared to prior echo 03/15/2020, findings are overall similar.?? TTE 01/11/2022: -Left ventricle is of normal size. Wall [...] compared to the prior study from 08/30/20. ?? MPI 01/07/2021: IMPRESSION 1. ??No ischemia or scar. 2. ??Left ventricular function is mildly reduced. ?? Cath??03/16/2020: Hemodynamics: ?Left Heart Pressures ?Resting: ?Syst Diast ?EDP ?a ?v ?m ?Ao 128 ?56 ?82 ?LV 121 ?14 ? Coronary Angiography: ?Dominance: Right ?Left Main ?There was mild diffuse (<=25% stenosis) disease of the entire vessel ?segment of the left main artery. ??The mid segment of the left main ?had an eccentric diffuse 35% stenosis. ?Left Anterior Descending ?There was mild diffuse (<=25% stenosis) disease of the entire vessel ?segment of the left anterior descending artery (LAD). ?Left Circumflex ?There was mild diffuse (<=25% stenosis) disease of the entire vessel ?segment of the left circumflex artery (LCX). ??The proximal segment ?of the LCX had a single discrete 80% stenosis. ?Right Coronary Artery ?There was mild diffuse (<=25% stenosis) disease of the entire vessel ?segment of the right coronary artery (RCA). ??The proximal segment of ?the RCA had a single discrete total occlusion. ??Distal flow was via ?collaterals from the LAD and collaterals from the LCX. ? Intravascular Imaging/Physiology: ?Intravascular Ultrasound was performed in the proximal LCX using a 6 Fr ?EBU 4.0 guiding catheter and a 3.[address] [facility] [address] ??20 Mhz. ?Imaging was successful. ??Image quality was good. ??The proximal LCX showed ?mild diffuse atherosclerotic plaque with no significant calcification. ? Indication for Intervention: ?Coronary intervention was indicated for treatment of a critical lesion ?post a myocardial infarction. The priority for the procedure was Urgent. ?The NCDR indication for the procedure was New Onset Angina <=2 months. ?LVEF within one week was 55%. Syntax Score was Intermediate. ? Intervention Summary: ?Left Circumflex Artery ?Proximal 80% ?Stent insertion was performed on the 80% stenosis in the ?proximal segment of the LCX. This was a de fredrick lesion. ?According to the ACC/AHA classification system, this lesion ?was a type B1 high risk lesion. Primary prevention of ?restenosis was the indication for stent insertion. This was ?the culprit lesion. A guidewire was placed across this lesion. ?Vessel flow pre intervention was ITZEL 3. Lesion length was ?12mm. ?Stent insertion was accomplished through a 6 Fr. EBU 4.0 ?guide. ??The lesion was predilated with a 3.00mm EMERGE 12 MM ?balloon with a maximum inflation pressure of 20 atmospheres. ?A premounted 3.50 x 12 mm Resolute JULIAN (YVAN) was deployed ?with a maximum inflation pressure of 24 atmospheres. ?The final outcome was defined as successful. The residual ?stenosis following this intervention was 10%. The final ITZEL ?flow was 3.? Assessment: ?? #1 HFnEF, EF??~48% #2??CAD s/p PCI to LCX #3??Hypertension #4??Hyperlipidemia?? Mr. 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 Doing overall excellent cardiac shen with no active cardiac symptoms. He has had some improvement in LV function with revascularization and medical therapy. We will continue current medical therapies. We will get BMP today jose is on Entresto. We will plan to see back in 1 year.. Plan: 1. Continue aspirin 81 mg daily, metoprolol succinate 12.5 mg daily, Entresto 49-51 mg twice daily,Imdur 30 mg daily, atorvastatin 80 mg daily. 2. BMP today. 3. Return to clinic in 1 year, or sooner if necessary. Thank you for allowing me to participate in the care of your patient. Please do not hesitate to contact me with any questions or concerns. Maury Duarte MD, MPH, RPVI, FAC, [facility] Cardiovascular Learning SpecialistBlacksmith Hammer Oper[place]orm[place] [address] documented in this encounter Miscellaneous Notes * Addendum Note - Michaela Barney 01/11/2022 11:40 AM EDTAddended by: MICHAELA BARNEY on: 01/11/2022 11:45 AM Modules accepted: Orders documented in this encounter Plan of Treatment Upcoming Encounters Date Type Department Care Team (Late st Contact Info) Description 06/20/2024 10:00 AM EST Office Visit Dermatology at [place] [address] [place] [address] Mustapha Lemos MD [address] [place] [address] documented as of this encounter Procedures Procedure Name Priority Date/Time Associated Diagnosis Comments HC VENIPUNCTURE Routine 01/11/2022 12:00 PM EDT HFrEF (heart failure with reduced ejection fraction) EKG 12-LEAD Routine 01/11/2022 11:19 AM EDT Coronary artery disease, unspecified vessel or lesion type, unspecified whether angina present, unspecified whether point hope ira or transplanted heart documented in this encounter Results * (ABNORMAL) Comprehensive metabolic panel (non-fasting) (01/11/2022 12:00 PM EDT) Glucose Lvl 98 65 - 199 mg/dL [facility] Comment:Diabetes: >=200 mg/d L plus symptoms BUN 21(H) 10 - 20 mg/dL [facility] Creatinine 0.99 0.80 - 1.50 mg/dL [facility] Sodium 138 135 - 145 mmol/L [facility] Potassium 4.7 3.5 - 5.0 mmol/L [facility] Comment: Please note: ??Patients with WBC >100,000 may have falsely elevated Potassium levels. ??For accurate Potassium quantification in these patients send serum separator tube (gold top) for subsequent determinations. ??Contact the Clinical Chemistry Laboratory if there are any questions. Chloride 106 98 - 107 mmol/L [facility] CO2 25 22 - 31 mmol/L [facility] Anion Gap 7 5 - 15 mmol/L [facility] Calcium 9.2 8.5 - 10.5 mg/dL [facility] Total Protein 6.3 6.1 - 8.0 g/dL [facility] Albumin 4.1 3.2 - 5.2 g/dL [facility] AST 16 0 - 39 unit/L [facility] ALT 21 0 - 55 unit/L [facility] Alk Phos 61 40 - 130 unit/L [facility] Total Bilirubin 0.7 0.2 - 1.3 mg/dL [facility] Estimated GFR 79 >=60 mL/min/1. 73 m?? [facility] Comment: This patient's estimated [...] and symptoms in addition to eGFR. Blood 01/11/2022 12:0 0 PM EDT 01/11/2022 12:15 PM EDT Narrative Resulting Agency Comment Spec In Lab Maury Duarte MD CHEMISTRY ORDERABLES [facility] [place] [address] * EKG 12 Lead (01/11/2022 11:19 AM EDT) Ventricular rate 60 BPM MUSE SYSTEM Atrial Rate 60 BPM MUSE SYSTEM P-R Interval 170 ms MUSE SYSTEM QRS Duration 142 ms MUSE SYSTEM Q-T Interval 432 ms MUSE SYSTEM QTC Calculated (Bezet) 432 ms MUSE SYSTEM Calculated P [place] 2 degrees MUSE SYSTEM Calculated R [place] -19 degrees MUSE SYSTEM Calculated T [place] 43 degrees MUSE SYSTEM INTERPRETATION Sinus rhythm with Premature atrial complexes Left bundle branch block Abnormal ECG When compared with ECG of 18-OCT-2021 13:32, Premature atrial complexes are now Present Questionable change in QRS axis Confirmed by MD Yanely, Sofiya ([id number]) on 01/11/2022 4:27:18 PM MUSE SYSTEM 01/11/2022 11:1 9 AM EDT 01/11/2022 4:27 PM EDT Maury Duarte MD ECG ORDERABLES MUSE SYSTEM documented in this encounter Visit Diagnoses Diagnosis Coronary artery disease, unspecified vessel or lesion type, unspecified whether angina present, unspecified whether point hope ira or transplanted heart HFrEF (heart failure with reduced ejection fraction) ASCVD (arteriosclerotic cardiovascular disease) Unspecified cardiovascular disease documented in this encounter Care Teams College Intern Relationship Specialty Start Date End Date Tr Hendrix DO [address] [place] [address] PCP - General Family Medicine 05/24/17 documented as of this encounter
--- OUTSIDE RECORDS SUMMARY | 2023-11-13 09:21 | XMS_ITS | Encounter Summary ---
Author Organization [facility] [place] [address] Care Team Providers Care Electrification Adviser Name Role Phone Ruma Tr Zambrano DO Primary Care Provider [phone] Reason for Visit * Reason Onset Date Comments Medication Refill 02/20/2022 Encounter Details Date Type Department Care Team (Late st Contact Info) Description 02/20/2022 Refill Cardiology at [address] [address] Maury Duarte MD [facility] C[place]IOLOGY [place] [address] Medication Refill Social History Tobacco Use Types [...] 10:00 AM EST Office Visit Dermatology at [place] [address] [place] [address] Mustapha Lemos MD [address] [facility] [place] [address] documented as of this encounter Visit Diagnoses Diagnosis Coronary artery disease, unspecified vessel or lesion type, unspecified whether angina present, unspecified whether mi'kmaq or transplanted heart- Primary documented in this encounter Care Teams Electrification Adviser Relationship Specialty Start Date End Date Tr Hendrix DO [address] [place] [address] PCP - General Family Medicine 05/24/17 documented as of this encounter
--- OUTSIDE RECORDS SUMMARY | 2023-11-13 09:21 | XMS_ITS | Encounter Summary ---
Author Organization [facility] [place] [address] Care Team Providers Care Pilates Coordinator Name Role Phone Tr Hendrix DO Primary Care Provider [phone] Encounter Details Date Type Department Care Team (Late st Contact Info) Description 12/30/2020 Telephone Cardiology at [address] [address] Faby Good, RN Social History [...] Telephone Encounter - Faby Good RN - 12/30/2020 1:01 PM EDT Patient called to report that he had developed some slight chest pressure over the past 21 days. Itcomes and goes and is like a dull ache, in the left side of his chest. It's not pain and not like what he's had before. It doesn't radiate anywhere except for a little today over to the right side. Patient says he went to cardiac rehab today ( he goes 2x per week) and while there had a little chest pressure- the PT told him he could take a NTG which he did and that resolved the sx. He says thatis the first time it happened at rehab and the first time he has taken a NTG. He has not needed to stop doing his rehab. He denies SOB, dizziness, N/V,fever, chills, sweating. Of note he has been working very hard outside stacking wood- he got a total of 4 cords and has 2 left to stack. He has been taking Advil prn forback pain and he says he has to get the wood done to be ready for winter. This is when the chest pressure developed. Medications were reviewed, no changes noted and he is taking them without any problems. Patient is due back in February for an appt. He agrees to see if Dr. Duarte has any recommendations, he is willing to come in sooner if this is ideal. Faby Purvis RNfine dining server [facility] documented in this encounter Plan of Treatment Upcoming Encounters Date Type Department Care Team (Late st Contact Info) Description 06/20/2024 10:00 AM EST Office Visit Dermatology at [place] [address] [place] [address] Mustapha Lemos MD [address] [facility] [place] [address] documented as of this encounter Visit Diagnoses Not on filedocumented in this encounter Care Teams Pilates Coordinator Relationship Specialty Start Date End Date Tr Hendrix DO [address] [place] [address] PCP - General Family Medicine 05/24/17 documented as of this encounter
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
--- OUTSIDE RECORDS SUMMARY | 2023-11-13 09:21 | XMS_ITS | Encounter Summary ---
Author Organization [facility] [place] [address] Care Team Providers Care Director Of Field Service Name Role Phone Tr Hendrix DO Primary Care Provider [phone] Reason for Visit * Reason Comments Chest Pain Congestive Heart Failure Follow-up Encounter Details Date Type Department Care Team (Late st Contact Info) Description 02/14/2021 1:40 PM EDT Office Visit Cardiology at [address] [address] Maury Duarte MD [facility] [place] [address] Left bundle branch block; Coronary artery disease, unspecified vessel or lesion type, unspecified whether angina present, unspecified whether [place] or transplanted heart; HFrEF (heart failure with reduced ejection fraction); Stable angina; Essential hypertension Social History Tobacco Use Types Packs/Day Years [...] Sign Reading Time Taken Comments Blood Pressure 125/53 02/14/2021 1:28 PM EDT Pulse 51 02/14/2021 1:28 PM EDT Temperature - - Respiratory Rate - - Oxygen Saturation 99% 02/14/2021 1:28 PM EDT Inhaled Oxygen Concentration - - Weight 90.7 kg (200 lb) 02/14/2021 1:28 PM EDT Height 175.3 cm (5' 9) 02/14/2021 1:28 PM EDT Body Mass Index 29.53 02/14/2021 1:28 PM EDT documented in this encounter Patient Instructions * Patient Instructions* Maury Duarte MD - 02/14/2021 1:40 PM EDT Mr. Nolasco, it was a pleasure to see you today. As we discussed, please: 1. Stop amlodipine. 2. Increase Entresto. Labs locally in 2 weeks. 3. Start Imdur 30 mg daily. 4. I will see you in 3 months. -Dr. Duarte documented in this encounter Progress Notes * Maury Duarte MD - 02/14/2021 1:40 PM EDT Images from the original note were not included. [facility] [address] [address] CARDIOVASCULAR MEDICINE OUTPATIENT CONSULTATION Storm Nolasco [id number] 02/14/2021 REFERRING PROVIDER: Tr Hendrix CHIEF COMPLAINT: Chief Complaint Patient presents with ??? Chest Pain ??? Congestive Heart Failure ??? Follow-up PROBLEM LIST Patient Active Problem List Diagnosis [...] OF PRESENT ILLNESS: Mr. Nolasco is a??very pleasant??75 year old man with history of HTN, HLD, prior smoker, AAA s/p open AAA repair and repair of bilateral common iliac artery aneurysms with post-operative AF who presented??with accelerating angina??in February 2020 -?TTE with EF 39% with anterior/apical WMA.??Co ronary angiography with RCA FINANCIAL BROKERS and proximal LCx lesion, s/p PCI.??He was discharged on GDMT with DAPT, BB, ARB (switched to Entresto), high intensity statin. His EF is ~40%. I last saw him on 08/30/2020. At that time, we increased Entresto dose. More recently, he reported episodes of chest pain. We obtained MPI, which was negative for ischemia. He reports that he has continued to have exertional chest pressure with activity, which does not limit him. When he stops, chestpain goes away. It is not associate with shortness of breath. He really does not have chest pain atrest. He denies PND, orthopnea, lower extremity edema, presyncope or syncope. He has not taken any sublingual nitroglycerin for this. REVIEW OF SYSTEMS: All others negative except as stated in the HPI. PAST MEDICAL HISTORY: HTN HLD CAD AAA SOCIAL HISTORY: Social History Tobacco Use ??? Smoking status: Former Smoker Packs/day: 1.00 Years: 50.00 Pack years: 50.00 Types: Cigarettes Quit date: 07/30/2015 Years since quittin.5 ??? Smokeless tobacco: Never Used Substance Use Topics ??? Alcohol use: Yes Alcohol/week: 14.0 standard drinks Types: 14 Glasses of wine per week MEDICATIONS: Current Outpatient Medications Medication Sig Dispense Refill ??? nitroGLYcerin (Nitrostat) 0.4 mg Tablet, Sublingual Place 1 tablet under the tongue every 5 minutes as needed for Chest pain. 20 tablet 3 ??? atorvastatin (Lipitor) 80 mg Tablet Take 1 tablet by mouth daily. 90 tablet 3 ??? metoprolol succinate XL (Toprol-XL) 25 mg Tablet Sustained Release 24 hr Take 0.5 tablets by mouth daily. 30 tablet 5 ??? ketoconazole (NIZORAL) 2 % Shampoo Apply [...] ??? terazosin (HYTRIN) 5 mg Capsule Bedtime ??? isosorbide mononitrate CR (Imdur) 30 mg Tablet Sustained Release 24 hr Take 1 tablet by mouth daily. 90 tablet 1 ??? sacubitriL-valsartan (Entresto) 49-51 mg Tablet tablet Take 1 tablet by mouth 2 times daily. 180 tablet 3 ??? polyethylene glycoL (Miralax) 17 gram/dose Powder USE DIRECTED FOR COLONOSCOPY PREP ??? pimecrolimus (ELIDEL) 1 % Cream Apply 1-2 times daily to affected facial and presternal chest sites (Patient not taking: Reported on 02/14/2021) 30 g 5 No current facility-administered medications for this visit. ALLERGIES: Hydrochlorothiazide and Lisinopril PHYSICAL EXAMINATION: Vital Signs: BP 125/53 Pulse 51 Ht 175.3 cm (5' 9) Wt 90.7 kg (200 lb) SpO2 99% BMI 29.53 kg/m?? Exam Details: General: Pleasant 75 y.o. man in no acute distress Eyes: No scleral icterus ENT: Moist mucous membranes Heart: Regular rate and rhythm, normal S1/S2, no murmurs/rubs/gallops appreciated Lungs: Clear to ascultation bilaterally Abdomen: Soft, non-tender, non-distended, normoactive bowel sounds noted. Extremities: No peripheral edema noted. No ulcerations noted. Neuro: No gross abnormalities noted Psych: Alert and oriented 3 x, normal affect DATA PERSONALLY REVIEWED: Last 3 wbc, hgb, hct plt No results for input(s): WBC, HGB, HCT, PLATELET in the last 7068 hours. Last 3 Lytes Recent Labs 08/30/20 1343 NA 141 K 4.4 CL 106 CO2 28 BUN 20 CREATININE 1.12 EKG??02/14/2021:??NSR 50 bpm, LBBB ?? TTE??03/15/2020: 1. [...] to prior echo 03/15/2020, findings are overall similar. MPI 01/07/2021: IMPRESSION 1. No ischemia or scar. 2. Left ventricular function is mildly reduced. ?? Cath??03/16/2020: [...] 4.0 guiding catheter and a 3.[address] [facility] [address] ??20 Mhz. ?Imaging was successful. ??Image [...] 10%. The final ITZEL ?flow was 3.? ASSESSMENT AND PLAN: #1 HFrEF, EF ~40% #2 CAD s/p PCI to LCX #3 Hypertension #4 Hyperlipidemia #5 Stable angina, CCS I Mr. Nolasco??is a very pleasant 75-year-old gentleman with history of abdominal aortic aneurysm and bilateral common iliac artery aneurysms status post open repair, coronary artery disease status post PCI to left circumflex and FINANCIAL BROKERS RCA and ischemic cardiomyopathy with ejection fraction of around 40%, hypertension, hyperlipidemia who presents for follow-up. Certainly, his chest pain does sound anginal but is really quite mild and nonlimiting. This point, we will continue medical management. I will start Imdur 30 mg daily. Additionally, we will continue to optimize his cardiac medications. I will stop amlodipine and increase Entresto. He continues on dual antiplatelet therapy given PCI February 2020, I would like to see how he does with medical management of his coronary disease and whether we will need to repeat coronary angiography prior to stopping Plavix. Cannot increase beta-sinai anymore due to resting bradycardia. We discussed worrisome symptoms to watch out for, including inc reasing chest pain or chest pain at rest. Plan: 1. Stop amlodipine. 2. Start Imdur 30 mg daily. 3. Increase Entresto to 49-51 mg twice daily. BMP locally in 2 weeks. 4. Continue aspirin 81 mg daily, metoprolol succinate 12.5 mg daily, atorvastatin 80 mg daily, labetalol 75 mg daily. 5. Return to clinic in 3 months, or sooner if necessary. Thank you for allowing me to participate in the care of your patient. Please do not hesitate to contact me with any questions or concerns. Maury Duarte MD, MPH, [place], [facility], [facility] Cardiovascular Log MarkerShaping Machine Operatorlive [place] [address] documented in this encounter Plan of Treatment Upcoming Encounters Date Type Department Care Team (Late st Contact Info) Description 06/20/2024 10:00 AM EST Office Visit Dermatology at [place] [address] [place] [phone] Mustapha Lemos MD [address] [facility] [place] [address] documented as of this encounter Procedures Procedure Name Priority Date/Time Associated Diagnosis Comments EKG 12-LEAD Routine 02/14/2021 1:32 PM EDT Left bundle branch block Coronary artery disease, unspecified vessel or lesion type, unspecified whether angina present, unspecified whether [place] or transplanted heart documented in this encounter Results * EKG 12 Lead (02/14/2021 1:32 PM EDT) Ventricular rate 51 BPM MUSE SYSTEM Atrial Rate 51 BPM MUSE SYSTEM P-R Interval 180 ms MUSE SYSTEM QRS Duration 158 ms MUSE SYSTEM Q-T Interval 476 ms MUSE SYSTEM QTC Calculated (Bezet) 438 ms MUSE SYSTEM Calculated P [place] 47 degrees MUSE SYSTEM Calculated R [place] 42 degrees MUSE SYSTEM Calculated T [place] 0 degrees MUSE SYSTEM INTERPRETATION Sinus bradycardia Left bundle branch block Abnormal ECG When compared with ECG of 10-MAY-2020 10:23, No significant change was found Confirmed by Socorro Harrison ([id number]) on 02/14/2021 3:47:47 PM MUSE SYSTEM 02/14/2021 1:32 PM EDT 02/14/2021 3:47 PM EDT Maury Duarte MD ECG ORDERABLES [employer] SYSTEM documented in this encounter Visit Diagnoses Diagnosis Left bundle branch block Other left bundle branch block Coronary artery disease, unspecified vessel or lesion type, unspecified whether angina present, unspecified whether [place] or transplanted heart HFrEF (heart failure with reduced ejection fraction) Stable angina Other and unspecified angina pectoris Essential hypertension Unspecified essential hypertension documented in this encounter Care Teams Director Of Field Service Relationship Specialty Start Date End Date Tr Hendrix DO [address] [place] [address] PCP - General Family Medicine 05/24/17 documented as of this encounter
--- OUTSIDE RECORDS SUMMARY | 2023-11-13 09:21 | XMS_ITS | Encounter Summary ---
[facility] Organization [facility] [place] [address] Care Team Providers Care Shipping Coordinator Name Role Phone Heberjennifer Tr Zambrano DO Primary Care Provider [phone] Encounter Details Date Type Department Care Team (Late st Contact Info) Description 01/10/2022 Orders Only Cardiology at [address] [address] Maury Duarte MD [facility] [address] Coronary artery disease, unspecified vessel or lesion type, unspecified whether angina present, unspecified whether [place] or transplanted heart Social History Tobacco Use [...] as of this encounter Progress Notes * Katina Muniz RN - 01/10/2022 1:06 PM EDT EKG pended. documented in this encounter Plan of Treatment Upcoming Encounters Date Type Department Care Team (Late st Contact Info) Description 06/20/2024 10:00 AM EST Office Visit Dermatology at [place] [address] [place] [address] Mustapha Lemos MD [address] [place] [address] documented as of this encounter Results * EKG 12 Lead (01/11/2022 11:19 AM EDT) Ventricular rate 60 BPM MUSE SYSTEM Atrial Rate 60 BPM MUSE SYSTEM P-R Interval 170 ms MUSE SYSTEM QRS Duration 142 ms MUSE SYSTEM Q-T Interval 432 ms MUSE SYSTEM QTC Calculated (Bezet) 432 ms MUSE SYSTEM Calculated P [place] 2 degrees MUSE SYSTEM Calculated R [place] -19 degrees MUSE SYSTEM Calculated T [place] 43 degrees MUSE SYSTEM INTERPRETATION Sinus rhythm with Premature atrial complexes Left bundle branch block Abnormal ECG When compared with ECG of 14-FEB-2021 13:32, Premature atrial complexes are now Present Questionable change in QRS axis Confirmed by MD Yanely, Sofiya ([id number]) on 01/11/2022 4:27:18 PM MUSE SYSTEM 01/11/2022 11:1 9 AM EDT 01/11/2022 4:27 PM EDT Maury Duarte MD ECG ORDERABLES MUSE SYSTEM documented in this encounter Visit Diagnoses Diagnosis Coronary artery disease, unspecified vessel or lesion type, unspecified whether angina present, unspecified whether [place] or transplanted heart documented in this encounter Care Teams Shipping Coordinator Relationship Specialty Start Date End Date Tr Hendrix DO [address] [place] [address] PCP - General Family Medicine 05/24/17 documented as of this encounter
--- OUTSIDE RECORDS SUMMARY | 2023-11-13 09:21 | XMS_ITS | Encounter Summary ---
Author Organization [facility] Address [facility] [place] [address] Care Team Providers Care Debt Collection Specialist Name Role Phone HeberjenniferTr DO Primary Care Provider [phone] Reason for Visit * Reason Comments Medication Refill Encounter Details Date Type Department Care Team (Late st Contact Info) Description 12/04/2021 Refill Cardiology at [address] [address] Maury Duarte MD [facility] [place] [address] Medication Refill Social History Tobacco Use Types [...] 10:00 AM EST Office Visit Dermatology at [place] [address] [place] [phone] Mustapha Lemos MD [address] [facility] [place] [address] documented as of this encounter Visit Diagnoses Diagnosis Heart failure with reduced ejection fraction- Primary documented in this encounter Care Teams Debt Collection Specialist Relationship Specialty Start Date End Date Tr Hendrix DO [address] [place] [address] PCP - General Family Medicine 05/24/17 documented as of this encounter
--- OUTSIDE RECORDS SUMMARY | 2023-11-13 09:21 | XMS_ITS | Encounter Summary ---
Author Organization [facility] [place] [address] Care Team Providers Care Chemical Mixer Name Role Phone HeberjenniferTr DO Primary Care Provider [phone] Encounter Details Date Type Department Care Team (Late st Contact Info) Description 06/22/2020 Telephone Cardiology at [address] [phone] Melissa Koenig RN Social History Tobacco Use Types Packs/Day [...] Telephone Encounter - Melissa Koenig RN - 06/22/2020 8:05 AM EST As per Dr. Duarte can you call pt and find out more about this rash? Thanks, documented in this encounter Plan of Treatment Upcoming Encounters Date Type Department Care Team (Late st Contact Info) Description 06/20/2024 10:00 AM EST Office Visit Dermatology at [address] [phone] Mustapha Lemos MD [address] [facility] [place] [address] documented as of this encounter Visit Diagnoses Not on filedocumented in this encounter Care Teams Chemical Mixer Relationship Specialty Start Date End Date Tr Hendrix DO [address] [place] [address] PCP - General Family Medicine 05/24/17 documented as of this encounter
--- OUTSIDE RECORDS SUMMARY | 2023-11-13 09:21 | XMS_ITS | Encounter Summary ---
[place] [address] Care Team Providers Care Dye Worker Name Role Phone Tr Hendrix DO Primary Care Provider [phone] Reason for Visit * Diagnostic Test (Routine) - Closed Specialty Diagnoses / Procedures Referred By Contac t Referred To Contact Radiology Diagnoses Stable angina HFrEF (heart failure with reduced ejection fraction) Procedures NM Pharmacologic Stress and Rest Myocardial Perfusion NM Exercise Stress and Rest Myocardial Perfusion Maury Duarte MD [facility] [place] [address] [place] [address] Referral ID Status Reason Start Date Expiration Date V isits Requested Visits Authorized [id number] Closed Specialty Service Requested 12/30/2020 07/01/2022 1 1 Encounter Details Date Type Department Care Team (Latest Contact Info) Description 01/07/2021 9:19 AM EDT Hospital Encounter [place] [address] Maury Duarte MD [facility] [place] [address] Stable angina; HFrEF (heart failure with reduced [...] Sig Dispensed Refills Start Date End Date aspirin 81 mg Tablet, Chewable Take 81 mg by mouth daily. 30 tablet 3 06/11/2019 oxybutynin XL (Ditropan-XL) 5 mg Tablet Extended Rel 24 hr 04/11/2019 sacubitriL-valsartan (Entresto) 24-26 mg Tablet tabletIndications:Hea rt failure with reduced ejection fraction Take 1.5 tablets by mouth 2 times daily. 270 tablet 3 10/18/2020 02/14/2021 polyethylene glycoL (Miralax) 17 gram/dose Powder USE DIRECTED FOR COLONOSCOPY PREP 01/30/2020 06/09/2021 ketoconazole (NIZORAL) 2 % Shampoo Apply as shampoo on a daily basis as needed 120 mL 05/31/2020 06/09/2021 clopidogreL (Plavix) 75 mg Tablet Take 1 tablet by mouth daily. 90 tablet 3 03/18/2020 06/03/2021 metoprolol succinate XL (Toprol-XL) 25 mg Tablet Sustained Release 24 hr Take 0.5 tablets by mouth daily. 30 tablet 5 03/18/2020 02/14/2021 nitroGLYcerin (Nitrostat) 0.4 mg Tablet, Sublingual Place 1 tablet under the tongue every 5 minutes as needed for Chest pain. 20 tablet 03/17/2020 02/14/2021 pimecrolimus (ELIDEL) 1 % Cream Apply 1-2 times daily to affected facial and presternal chest sites 30 g 5 05/27/2019 06/09/2021 amLODIPine (NORVASC) 5 mg Tablet Take 1 tablet by mouth daily. 30 tablet 04/08/2019 02/14/2021 terazosin (HYTRIN) 5 mg Capsule Bedtime 03/19/2017 06/14/2023 atorvastatin (LIPITOR) 80 mg Tablet Take 80 mg by mouth daily. 03/26/2017 02/14/2021 documented as of this encounter Plan of Treatment Upcoming Encounters Date Type Department Care Team (Late st Contact Info) Description 06/20/2024 10:00 AM EST Office Visit Dermatology at [place] [address] [place] [phone] Mustapha Lemos MD [address] [place] [address] documented as of this encounter Procedures Procedure Name Priority Date/Time Associated Diagnosis Comments NM PHARMACOLOGIC STRESS AND REST MYOCARDIAL PERFUSION Routine 01/07/2021 10:39 AM EDT Stable angina HFrEF (heart failure with reduced ejection fraction) documented in this encounter Results * NM Pharmacologic Stress and Rest Myocardial Perfusion (01/07/2021 10:39 AM EDT) Anatomical Region Laterality Modality Nuclear Medicine Impressions 01/07/2021 11:56 AM EDT 1. ??No ischemia or scar. 2. ??Left ventricular function is mildly reduced. Preliminary report signed by: Axel Birch at 01/07/2021 11:55 AM I have personally reviewed the image(s) and the resident's interpretation and agree with the findings, Kj Fitzgerald MD at 01/07/2021 11:56 AM Thank you for letting us participate in the care of this patient. ??If you are a health care provider and have any questions regarding this report, please contact the number below. ??For patients who have questions please contact the health care attendant that requested your imaging first. ? Electronically signed by: Kj Fitzgerald MD, [facility] ([phone]), at 01/07/2021 11:56 AM Narrative 01/07/2021 11:56 AM EDT EXAMINATION: NM PHARMACOLOGIC STRESS AND REST MYOCARDIAL PERFUSION, NM PHARMACOLOGIC STRESS CT COMPONENT CLINICAL HISTORY: history of HFrEF s/p PCI now with new angina history of HFrEF s/p PCI now with new angina TECHNIQUE: During rest, 0.6 mCi of technetium-99m sestamibi was administered intravenously. Approximately 20 minutes later, SPECT images of the heart were obtained with reconstruction in the short, vertical long and horizontal long axis. The patient then received regadenoson intravenously at a dose of 0.4 mg. 20 seconds later, 24.6 mCi of technetium-99m sestamibi was administered intravenously. Images of the heart were then again obtained with SPECT reconstruction. A low-dose CT scan was acquired for the purpose of attenuation correction COMPARISON: CTA chest abdomen pelvis dated 06/20/2019 FINDINGS: No fixed or reversible perfusion defects are present. Functional analysis: Myocardial function: There is normal wall thickening with diffusely hypokinetic wall motion. Left ventricular ejection fraction: 41 % (normal greater than than 50%). INCIDENTAL CT FINDINGS: Aortic and coronary calcification, calcified paratracheal lymphadenopathy Procedure Note Kj Fitzgerald MD - 01/07/2021 EXAMINATION: NM PHARMACOLOGIC STRESS AND REST MYOCARDIAL PERFUSION, NM PHARMACOLOGIC STRESS CT COMPONENT CLINICAL HISTORY: history of HFrEF s/p PCI now with new angina history of HFrEF s/p PCI now with new angina TECHNIQUE: During rest, 0.6 mCi of technetium-99m sestamibi wasadministered intravenously. Approximately 20 minutes later, SPECT images of the heartwere obtained with reconstruction in the short, vertical long and horizontallong axis. The patient then received regadenoson intravenously at a dose of 0.4 mg.20 seconds later, 24.6 mCi of technetium-99m sestamibi was administered intravenously. Images of the heart were then again obtained with SPECT reconstruction. A low-dose CT scan was acquired for the purpose of attenuationcorrection COMPARISON: CTA chest abdomen pelvis dated 06/20/2019 FINDINGS: No fixed or reversible perfusion defects are present. Functional analysis: Myocardial function: There is normal wall thickening with diffuselyhypokinetic wall motion. Left ventricular ejection fraction: 41 % (normal greater than than 50%). INCIDENTAL CT FINDINGS: Aortic and coronary calcification, calcified paratracheallymphadenopathy IMPRESSION 1. No ischemia or scar. 2. Left ventricular function is mildly reduced. Preliminary report signed by: Axel Birch at 01/07/2021 11:55 AM I have personally reviewed the image(s) and the resident's interpretationand agree with the findings, Kj Fitzgerald MD at 01/07/2021 11:56 AM Thank you for letting us participate in the care of this patient. If youare a health care provider and have any questions regarding this report,please contact the number below. For patients who have questions please contactthe health care attendant that requested your imaging first. Maury Duarte MD IM NM ORDERABLES documented in this encounter Visit Diagnoses Diagnosis Stable angina Other and unspecified angina pectoris HFrEF (heart failure with reduced ejection fraction) documented in this encounter Administered Medications Inactive Administered Medications - up to 3 most recent administrations Medication Order MAR Action Action Date Dose Rate Site technetium (Tc-99m) sestamibi injection 0-30 mCi 0-30 mCi, Intravenous, 2 TIMES DAILY PRN, 2 doses, Starting on Sun01/07/21 at 0939, Until Sun01/07/21 at 1035, Per Protocol, Radiology Contrast, Routine Given 01/07/2021 10:35 AM EDT 24.6 mCi Given 01/07/2021 9:30 AM EDT 8.6 mCi Le Arm documented in this encounter Care Teams Dye Worker Relationship Specialty Start Date End Date Tr Hendrix DO [address] [place] [id number] PCP - General Family Medicine 05/24/17 documented as of this encounter
--- OUTSIDE RECORDS SUMMARY | 2023-11-13 09:21 | XMS_ITS | Encounter Summary ---
[place] [address] Care Team Providers Care Electronics Processor Name Role Phone Tr Hendrix DO Primary Care Provider [phone] Reason for Visit * Reason Onset Date Comments Labs Only 09/14/2020 entresto Encounter Details Date Type Department Care Team (Late st Contact Info) Description 09/14/2020 Telephone Cardiology at [address] [phone] Melissa Koenig RN Labs Only (entresto) Social History Tobacco Use Types Packs/Day Years [...] Telephone Encounter - Melissa Koenig RN - 09/14/2020 3:01 PM EDT Pt agrees to monitor BPs at least an hour after medication and will try to send via [facility] or will call the nurse green team. Reviewed s/sx to monitor while on Entresto. Teach back method done. Melissa Koenig RN 4A Cardiology * Telephone Encounter - Melissa Koenig RN - 09/14/2020 12:42 PM EDT VM from [facility] reporting he had his labs done today and needs to know if he continues on the 1.5 tabs bid of Entresto or a different dose. Chart reviewed. Call to Storm who reports he had them done at [facility]. Call to [facility] and they will fax us the labs. Calcium 8.6, glucose 110, bun 22, creat 1.1, gfr .60, sodium 143, potassium 4.4, chloride 107, co2 29, anion gap 7 Melissa Koenig RN 4A Cardiology documented in this encounter Plan of Treatment Upcoming Encounters Date Type Department Care Team (Late st Contact Info) Description 06/20/2024 10:00 AM EST Office Visit Dermatology at [place] [address] [place] [phone] Mustapha Lemos MD [address] [place] [address] documented as of this encounter Visit Diagnoses Not on filedocumented in this encounter Care Teams Electronics Processor Relationship Specialty Start Date End Date Tr Hendrix DO [address] [place] [address] PCP - General Family Medicine 05/24/17 documented as of this encounter
--- OUTSIDE RECORDS SUMMARY | 2023-11-13 09:21 | XMS_ITS | Encounter Summary ---
[place] [address] Care Team Providers Care Cardiac Tech Name Role Phone Tr Hendrix DO Primary Care Provider [phone] Reason for Referral * Diagnostic Test (Routine) - Closed Specialty Diagnoses / Procedures Referred By Contac t Referred To Contact Radiology Diagnoses Abdominal aortic aneurysm (AAA) without rupture Procedures CT Abdomen & Pelvis wo Contrast [facility] [address] [place] [phone] [facility] [place] [address] Referral ID Status Reason Start Date Expiration Date V isits Requested Visits Authorized [id number] Closed Specialty Service Requested 06/20/2019 12/18/2020 1 1 Reason for Visit * Diagnostic Test (Routine) - Closed Specialty Diagnoses / Procedures Referred By Contac t Referred To Contact Radiology Diagnoses Abdominal aortic aneurysm (AAA) without rupture Procedures CT Abdomen & Pelvis wo Contrast [facility] [address] [address] [facility] [place] [address] Referral ID Status Reason Start Date Expiration Date V isits Requested Visits Authorized [id number] Closed Specialty Service Requested 06/20/2019 12/18/2020 1 1 Encounter Details Date Type Department Care Team (Latest Contact Info) Description 06/21/2020 2:29 PM EST - 06/21/2020 11:59 PM EST Hospital Encounter CT Scan at [facility] [place] [phone] Helio Duke MD [facility] [address] [place] [address] Abdominal aortic aneurysm (AAA) without rupture Discharge [...] mg Tablet Extended Rel 24 hr 04/11/2019 polyethylene glycoL (Miralax) 17 gram/dose Powder USE DIRECTED FOR COLONOSCOPY PREP 01/30/2020 06/09/2021 ketoconazole (NIZORAL) 2 % Shampoo Apply as shampoo on a daily basis as needed 120 mL 05/31/2020 06/09/2021 sacubitriL-valsartan (Entresto) 24-26 mg Tablet tablet Take 1 tablet by mouth 2 times daily. 60 tablet 12 05/11/2020 08/30/2020 clopidogreL (Plavix) 75 mg Tablet Take 1 tablet by mouth daily. 90 tablet 3 03/18/2020 06/03/2021 metoprolol succinate XL (Toprol-XL) 25 mg Tablet Sustained Release 24 hr Take 0.5 tablets by mouth daily. 30 tablet 5 03/18/2020 02/14/2021 nitroGLYcerin (Nitrostat) 0.4 mg Tablet, Sublingual Place 1 tablet under the tongue every 5 minutes as needed for Chest pain. 20 tablet 03/17/2020 02/14/2021 losartan (Cozaar) 25 mg Tablet Take 25 mg by mouth daily. 08/30/2020 pimecrolimus (ELIDEL) 1 % Cream Apply 1-2 [...] 10:00 AM EST Office Visit Dermatology at [place] [address] [place] [phone] Mustapha Lemos MD [address] [place] [address] documented as of this encounter Procedures Procedure Name Priority Date/Time Associated Diagnosis Comments CT ABDOMEN AND PELVIS WO CONTRAST Routine 06/21/2020 2:38 PM EST Abdominal aortic aneurysm (AAA) without rupture documented in this encounter Results * CT Abdomen & Pelvis wo Contrast (06/21/2020 2:38 PM EST) Anatomical Region Laterality Modality Abdomen, Pelvis Computed Tomogra phy Impressions 06/21/2020 4:18 PM EST 1. ??Expected collapse of the abdominal aortic and RIGHT common iliac aneurysm sacs following repair 2. 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 ??No identified cause for fever or abdominal pain within the limits of a noncontrast exam Thank you for letting us participate in the care of this patient. For questions regarding this report, please contact the number below. ? Electronically signed by: Leanne Zamora MD, [facility] ([phone]), at 06/21/2020 4:18 PM Narrative 06/21/2020 4:18 PM EST EXAMINATION: CT ABDOMEN AND PELVIS WO CONTRAST CLINICAL HISTORY: Abdominal pain, fever, post-op - Include more detail below hypogastric aneurysm TECHNIQUE: Helical CT of the abdomen and pelvis was performed without the use of intravenous contrast. ??Multiplanar reformatted images were generated. COMPARISON: 06/20/2019 FINDINGS: The absence of intravenous contrast limits the evaluation of solid viscera and vasculature. Right kidney/ureter: No collecting system dilation or calculi. Left kidney/ureter: No collecting system dilation or calculi. Urinary Bladder: No bladder or proximal urethral calculi. Lower chest: Normal. Liver: Normal. Bile ducts: Nondilated. Gallbladder: No calcified gallstones. Normal caliber wall. Pancreas: Normal attenuation without ductal dilatation. Spleen: Scattered calcifications Adrenals: Normal. Vasculature: Since the patient's prior study the aortic aneurysm sac has collapsed, with a maximal dimension now being 33 x 25 mm.. There is also been collapse of the RIGHT common iliac sac. The 2 cm LEFT internal iliac aneurysm is unchanged rPatency and thrombus cannot be assessed due to the lack of intravenous contrast.. No evidence of retroperitoneal hemorrhage Lymph Nodes: No enlarged lymph nodes. Bowel: Nondilated, no wall thickening. ?? Peritoneum and mesentery: No ascites, free air, or loculated fluid collection. No mesenteric inflammation. Scattered diverticula E in the descending and sigmoid colon Abdominal wall: Intact RIGHT inguinal hernia repair. Reproductive organs: Enlarged prostate. Osseous structures: No suspicious lesions. Procedure Note Leanne Zamora MD - 06/21/2020 EXAMINATION: CT ABDOMEN AND PELVIS WO CONTRAST CLINICAL HISTORY: Abdominal pain, fever, post-op - Include more detailbelow hypogastric aneurysm TECHNIQUE: Helical CT of the abdomen and pelvis was performed without theuse of intravenous contrast. Multiplanar reformatted images were generated. COMPARISON: 06/20/2019 FINDINGS: The absence of intravenous contrast limits the evaluation of solid visceraand vasculature. Right kidney/ureter: No collecting system dilation or calculi. Left kidney/ureter: No collecting system dilation or calculi. Urinary Bladder: No bladder or proximal urethral calculi. Lower chest: Normal. Liver: Normal. Bile ducts: Nondilated. Gallbladder: No calcified gallstones. Normal caliber wall. Pancreas: Normal attenuation without ductal dilatation. Spleen: Scattered calcifications Adrenals: Normal. Vasculature: Since the patient's prior study the aortic aneurysm sac has collapsed, with a maximal dimension now being 33 x 25 mm.. There is alsobeen collapse of the RIGHT common iliac sac. The 2 cm LEFT internal iliacaneurysm is unchanged rPatency and thrombus cannot be assessed due to the lack of intravenous contrast.. No evidence of retroperitoneal hemorrhage Lymph Nodes: No enlarged lymph nodes. Bowel: Nondilated, no wall thickening. Peritoneum and mesentery: No ascites, free air, or loculated fluidcollection. No mesenteric inflammation. Scattered diverticula E in the descendingand sigmoid colon Abdominal wall: Intact RIGHT inguinal hernia repair. Reproductive organs: Enlarged prostate. Osseous structures: No suspicious lesions. IMPRESSION 1. Expected collapse of the abdominal aortic and RIGHT common iliacaneurysm sacs following repair 2. Unchanged 2 cm LEFT internal iliac artery aneurysm 3. No identified cause for fever or abdominal pain within the limits ofa noncontrast exam Thank you for letting us participate in the care of this patient. Forquestions regarding this report, please contact the number below. Helio Duke MD IMG CT ORDERABLES documented in this encounter Visit Diagnoses Diagnosis Abdominal aortic aneurysm (AAA) without rupture documented in this encounter Care Teams Cardiac Tech Relationship Specialty Start Date End Date Tr Hendrix DO [address] [place] [address] PCP - General Family Medicine 05/24/17 documented as of this encounter
--- OUTSIDE RECORDS SUMMARY | 2023-11-13 09:21 | XMS_ITS | Encounter Summary ---
[place] [address] Care Team Providers Care Project Finance Analyst Name Role Phone Tr Hendrix DO Primary Care Provider [phone] Reason for Visit * Reason Comments Skin Check Encounter Details Date Type Department Care Team (Late st Contact Info) Description 06/09/2021 10:45 AM EST Office Visit Dermatology at [address] [phone] Mustapha Lemos MD [address] [facility] [address] Seborrheic dermatitis; History of malignant melanoma; Dermatitis Social History Tobacco Use Types Packs/Day Years [...] Progress Notes * Mustapha Lemos MD - 06/09/2021 10:45 AM EST Problem: 1.?Follow-up for yearly skin checkup. 2. 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 ??History of malignant??melanoma, right shoulder, June 2010 4. ??History of going up on [place] with frequent sun exposure 5. ??Recalcitrant seborrheic dermatitis which does not bother patient 6. Status post revascularization procedure abdomen and femoral arteries Terry follows up for a 1 year check. Has been doing well. He is notes no new lesions of concern. Physical examination reveals that the right cheek SCCA treatment site has healed well. The melanomaexcision site remains well-healed and without evidence of recurrent pigmentation. He has benign examination of the head the neck chest back hands arms forearms thighs and Clack calves including the buttocks. There is no evidence of any malignant lesions today. Assessment plan: History of malignant melanomas 1. Patient reassured by his benign examination today 2. Continue sun avoidance carcinoma 3. Return to clinic in a year for recheck Seborrheic dermatitis, facial 1. Patient is pleased with the level of control with the ketoconazole 2% shampoo. Use on an as needed basis. Dispense 120 mL with pill refills. CC: Tr Hendrix DO documented in this encounter Plan of Treatment Upcoming Encounters Date Type Department Care Team (Late st Contact Info) Description 06/20/2024 10:00 AM EST Office Visit Dermatology at [address] [phone] Mustapha Lemos MD [address] [facility] [address] documented as of this encounter Visit Diagnoses Diagnosis Seborrheic dermatitis Seborrheic dermatitis, unspecified History of malignant melanoma Personal history of malignant melanoma of skin Dermatitis Contact dermatitis and other eczema, due to unspecified cause documented in this encounter Care Teams Project Finance Analyst Relationship Specialty Start Date End Date Tr Hendrix DO [address] [place] [address] PCP - General Family Medicine 05/24/17 documented as of this encounter
--- OUTSIDE RECORDS SUMMARY | 2023-11-13 09:21 | XMS_ITS | Encounter Summary ---
Author Organization [facility] [place] [address] Care Team Providers Care Applications Systems Engineer Name Role Phone HeberjenniferTr DO Primary Care Provider [phone] Encounter Details Date Type Department Care Team (Late st Contact Info) Description 10/14/2020 Telephone Cardiology at [address] [phone] Faby Good RN Social History Tobacco Use Types Packs/Day [...] Telephone Encounter - Faby Good RN - 10/14/2020 1:09 PM EDT PA dept. At [facility] was contacted regarding PA initiated on patient's Entresto medication. PA is in the review process currently and decision will be faxed to office when made. NIHARIKA ref#: [id number] Faby Purvis RNblast furnace helper [facility] General Team-Dmitriy documented in this encounter Plan of Treatment Upcoming Encounters Date Type Department Care Team (Late st Contact Info) Description 06/20/2024 10:00 AM EST Office Visit Dermatology at [place] [address] [place] [address] Mustapha Lemos MD [address] [place] [address] documented as of this encounter Visit Diagnoses Not on filedocumented in this encounter Care Teams Applications Systems Engineer Relationship Specialty Start Date End Date Tr Hendrix DO [address] [place] [address] PCP - General Family Medicine 05/24/17 documented as of this encounter
--- OUTSIDE RECORDS SUMMARY | 2023-11-13 09:21 | XMS_ITS | Encounter Summary ---
Author Organization [place] [address] Care Team Providers Care Produce Wrapper Name Role Phone Tr Hendrix DO Primary Care Provider [phone] Reason for Visit * Reason Comments Coronary Artery Disease Congestive Heart Failure Follow-up Encounter Details Date Type Department Care Team (Latest Contact Info) Description 08/30/2020 1:00 PM EDT Office Visit Cardiology at [address] [address] Mauyr Duarte MD [facility] [place] [address] HFrEF (heart failure with reduced ejection fraction); ASCVD (arteriosclerotic cardiovascular disease); Essential hypertension Social History Tobacco Use Types [...] Sign Reading Time Taken Comments Blood Pressure 131/46 08/30/2020 12:54 PM EDT Pulse 57 08/30/2020 12:54 PM EDT Temperature - - Respiratory Rate - - Oxygen Saturation 98% 08/30/2020 12:54 PM EDT Inhaled Oxygen Concentration - - Weight 91.2 kg (201 lb) 08/30/2020 12:54 PM EDT Height 175.3 cm (5' 9) 08/30/2020 12:54 PM EDT Body Mass Index 29.68 08/30/2020 12:54 PM EDT documented in this encounter Progress Notes * Maury Duarte MD - 08/30/2020 1:00 PM EDT Images from the original note were not included. [facility] [place] [address] [address] CARDIOVASCULAR MEDICINE OUTPATIENT CONSULTATION Storm Nolasco [id number] 08/30/2020 REFERRING PROVIDER: Tr Hendrix CHIEF COMPLAINT: Chief Complaint Patient presents with ??? Coronary Artery Disease ??? Congestive Heart Failure ??? Follow-up PROBLEM [...] HISTORY OF PRESENT ILLNESS: Mr. 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 He was discharged on GDMT with DAPT, BB, ARB, high intensity statin. I last saw him on 05/10/2020. At that time, we started Entresto. Symptom afterwards, he had noted itching, especially in his abdomen. We had a trial of stopping Entresto, but this did not resolve. Itching is quite mild and there does not appear to be significant rash component to it. We restarted Entresto with no change in his symptoms. Overall, he feels quite well. He is going to cardiac rehab locally. He is active on a regular basis. He has no chest pain or shortness of breath. He denies PND orthopnea. He has mild chronic lower extreme edema. He denies palpitations, presyncope or syncope. Tolerating medications overall without issues. Reports blood pressure at home can be anywhere from syst olics 130s to 150s. TTE today showed that his EF remains in around 40% range with no significant valvular disease. REVIEW OF SYSTEMS: All others negative except as stated in the HPI. PAST MEDICAL HISTORY: HTN HLD CAD AAA SOCIAL HISTORY: Social History Tobacco Use ??? Smoking status: Former Smoker Packs/day: 1.00 Years: 50.00 Pack years: 50.00 Types: Cigarettes Quit date: 07/30/2015 Years since quittin.0 ??? Smokeless tobacco: Never Used Substance Use Topics ??? Alcohol use: Yes Alcohol/week: 14.0 standard drinks Types: 14 Glasses of wine per week MEDICATIONS: Current Outpatient Medications Medication Sig Dispense Refill ??? sacubitriL-valsartan (Entresto) 24-26 mg Tablet tablet Take 1.5 tablets by mouth 2 times daily.60 tablet 12 ??? polyethylene glycoL (Miralax) 17 gram/dose Powder [...] by mouth daily. 30 tablet 5 ??? nitroGLYcerin (Nitrostat) 0.4 mg Tablet, Sublingual Place 1 tablet under the tongue every 5 minutes as needed for Chest pain. 20 tablet 0 ??? aspirin 81 mg Tablet, Chewable Take 81 mg by mouth daily. 30 tablet 3 ??? oxybutynin XL (Ditropan-XL) 5 mg Tablet Extended Rel 24 hr ??? pimecrolimus (ELIDEL) 1 % Cream Apply 1-2 times daily to affected facial and presternal chest sites 30 g 5 ??? amLODIPine (NORVASC) 5 mg Tablet Take 1 tablet by mouth daily. 30 tablet 0 ??? terazosin (HYTRIN) 5 mg Capsule Bedtime ??? atorvastatin (LIPITOR) 80 mg Tablet Take 80 mg by mouth daily. No current facility-administered medications for this visit. ALLERGIES: Hydrochlorothiazide and Lisinopril PHYSICAL EXAMINATION: Vital Signs: BP 131/46 Pulse 57 Ht 175.3 cm (5' 9) Wt 91.2 kg (201 lb) SpO2 98% BMI 29.68 kg/m?? Exam Details: General: Pleasant 75 y.o. man/female in no acute distress Eyes: No scleral icterus ENT: Moist mucous membranes Lymph: No cervical or supraclavicular lymphadenopathy Heart: Regular rate and rhythm, normal S1/S2, no murmurs/rubs/gallops appreciated Lungs: Clear to ascultation bilaterally Abdomen: Soft, non-tender, non-distended, normoactive bowel sounds noted. Extremities: Trace peripheral edema noted. No ulcerations noted. Vessels: No carotid bruits appreciated. Neuro: No gross abnormalities noted Psych: Alert and oriented 3 x, normal affect DATA PERSONALLY REVIEWED: Last 3 wbc, hgb, hct plt Recent Labs 03/17/20 0830 03/16/20 0355 03/15/20 1549 WBC 7.0 7.2 8.2 HGB 13.7 13.6* 14.4 HCT 39.7* 39.8* 41.6 PLATELET 157 156 165 Last 3 Lytes Recent Labs 03/17/20 0830 03/16/20 0355 NA 136 138 K 4.1 4.2 CL 105 106 CO2 21* 24 BUN 19 17 CREATININE 0.92 0.92 EKG 05/10/2020: NSR 50 bpm, LBBB ?? TTE 03/15/2020: 1. The left ventricular chamber size is [...] See remainder of report for additional findings. TTE 08/30/2020: 1. The left ventricle is [...] prior echo 03/15/2020, findings are overall similar. ?? Cath 03/16/2020: Hemodynamics: ?Left Heart Pressures ?Resting: ?Syst Diast [...] 4.0 guiding catheter and a 3.5 Fr [facility] [address] ??20 Mhz. ?Imaging was successful. ??Image [...] was 10%. The final ITZEL ?flow was 3. ? ASSESSMENT AND PLAN: #1 HFrEF, EF ~40% #2 CADs/p PCI to LCX #3 Hypertension #4 Hyperlipidemia Mr. Nolasco is a very pleasant 75-year-old gentleman with history of abdominal aortic aneurysm and bilateral common iliac artery aneurysms status post open repair, coronary artery disease status post PCI to left circumflex EVENT MARKETING SPECIALIST RCA and ischemic cardiomyopathy with ejection fraction of around 40%, hypertension, hyperlipidemia who presents for follow-up. Overall doing quite well on current medications. He is NYHA class I. His ejection fraction is unchanged although it is very encouraging that heis overall asymptomatic. He remains on low-dose beta- sinai and Entresto. Cannot uptitrate beta-sinai anymore due to resting bradycardia. I will try to uptitrate his Entresto a bit. He continues on dual antiplatelet therapy given PCI in February 2020, plan for 1 year. He is also on high intensity statin. Plan: 1. Increase Entresto to 1.5 pills twice daily of 24-26 mg pills. BMP today and again locally in 2 weeks. If he tolerates this, consider increasing to 2 pills twice daily. He will measure blood pressure at home and I will talk to him after I receive his BMP results in about 2 weeks. 2. Continue to lipid therapy (plan for 1 year), metoprolol succinate 25 mg daily, atorvastatin 80 mg daily. 3. Return to clinic in 6 months, or sooner if necessary. Thank you for allowing me to participate in the care of your patient. Please do not hesitate to contact me with any questions or concerns. 25 minutes for review prior records, imaging (TTE, cath), [id number] consultation with patient, documentation. Maury Duarte MD, MPH, RPVI, FACC, [facility] Cardiovascular Animal Health TechnicianSnowboard Instructoreducation [place] [address] documented in this encounter Miscellaneous Notes * Addendum Note - Luma Taveras - 08/30/2020 1:00 PM EDTAddended by: LUMA TAVERAS on: 08/30/2020 01:27 PM Modules accepted: Orders documented in this encounter Plan of Treatment Upcoming Encounters Date Type Department Care Team (Late st Contact Info) Description 06/20/2024 10:00 AM EST Office Visit Dermatology at [place] [address] [place] [address] Mustapha Lemos MD [address] [facility] [place] [address] documented as of this encounter Procedures Procedure Name Priority Date/Time Associated Diagnosis Comments HC VENIPUNCTURE Routine 08/30/2020 1:43 PM EDT Essential hypertension documented in this encounter Results * Basic Metabolic Panel (non-fasting) (08/30/2020 1:43 PM EDT) Glucose Lvl 111 65 - 199 mg/dL [facility] Comment:Diabetes: >=200 mg/d L plus symptoms BUN 20 10 - 20 mg/dL [facility] Creatinine 1.12 0.80 - 1.50 mg/dL [facility] Sodium 141 135 - 145 mmol/L [facility] Potassium 4.4 3.5 - 5.0 mmol/L [facility] Comment: Please note: ??Patients with WBC >100,000 may have falsely elevated Potassium levels. ??For accurate Potassium quantification in these patients send serum separator tube (gold top) for subsequent determinations. ??Contact the Clinical Chemistry Laboratory if there are any questions. Chloride 106 98 - 107 mmol/L [facility] CO2 28 22 - 31 mmol/L [facility] Anion Gap 7 5 - 15 mmol/L [facility] Calcium 9.1 8.5 - 10.5 mg/dL [facility] Estimated GFR 64 >=60 mL/min/1. 73 m?? [facility] Comment: This patient? s estimated glomerular filtration rate (eGFR) is between 64 mL/min/1.73 m2 (patients with less muscle mass per kg body weight) and 74 mL/min/1.73 m2 (patients with more muscle mass per kg body weight) as determined by the CKD-EPI equation. Assessment of eGFR is not appropriate when creatinine concentrations are rapidly changing. For clinical decisions where creatinine clearance will affect therapy, a 24-hour urine creatinine clearance may be advised. Assignment of CKD stage 1 - 5 for patients with an eGFR near the transition point between stages may be based on clinical assessment of muscle mass and symptoms in addition to eGFR. Blood specimen (specimen) 08/30/2020 1:43 PM EDT 08/30/2020 2:07 PM EDT Narrative Resulting Agency Comment Spec In Lab Maury Duarte MD CHEMISTRY ORDERABLES [facility] [place] [address] documented in this encounter Visit Diagnoses Diagnosis HFrEF (heart failure with reduced ejection fraction) ASCVD (arteriosclerotic cardiovascular disease) Unspecified cardiovascular disease Essential hypertension Unspecified essential hypertension documented in this encounter Care Teams Produce Wrapper Relationship Specialty Start Date End Date Tr Hendrix DO [address] [place] [address] PCP - General Family Medicine 05/24/17 documented as of this encounter
--- OUTSIDE RECORDS SUMMARY | 2023-11-13 09:21 | XMS_ITS | Encounter Summary ---
Author Organization [facility] [place] [address] Care Team Providers Care Associate Accountant Name Role Phone HeberjenniferTr DO Primary Care Provider [phone] Reason for Visit * Reason Comments Medication Refill Encounter Details Date Type Department Care Team (Late st Contact Info) Description 02/01/2022 Refill Cardiology at [address] [address] Maury Duarte MD [facility] [place] [address] Medication Refill Social History Tobacco Use Types [...] 10:00 AM EST Office Visit Dermatology at [place] [address] [place] [address] Mustapha Lemos MD [address] [facility] [place] [address] documented as of this encounter Visit Diagnoses Diagnosis Heart failure with reduced ejection fraction- Primary Coronary artery disease, unspecified vessel or lesion type, unspecified whether angina present, unspecified whether samish or transplanted heart documented in this encounter Care Teams Associate Accountant Relationship Specialty Start Date End Date Tr Hendrix DO [address] [place] [address] PCP - General Family Medicine 05/24/17 documented as of this encounter
--- OUTSIDE RECORDS SUMMARY | 2023-11-13 09:21 | XMS_ITS | Encounter Summary ---
[place] [address] Care Team Providers Care Utility Engineer Name Role Phone Tr Hendrix DO Primary Care Provider [phone] Reason for Visit * Reason Comments Prior Authorization Entresto 24-26mg tab lets Encounter Details Date Type Department Care Team (Late st Contact Info) Description 10/18/2020 Specialty [place] [address] Hardy Boyce Social History Tobacco Use Types Packs/Day Years [...] as of this encounter Progress Notes * Hardy Boyce - 10/18/2020 4:23 PM EDT [facility], Medication Prior Authorization Patient: Storm C Constance Patient : 1945 Patient Address: [place] [address] (home) Medication Name: ENTRESTO 24 MG-26 MG TABLET Medication ID: [id number] Patient Location: [facility] Patient Location Comment: Subscriber Insurance: [employer] Subscriber Insurance Comment: Fax: Physician: FELICITAS DE LOS SANTOS Physician Comment: Sent Via: [employer] Guy: [id number] Ref/Case/PA#: [id number] Medication Strength Frequency Requested: HFrEF (heart failure with reduced ejection fraction), I50.20 Qty/Day Supply: 270/90 New Start: Change in Dose Diagnosis & ICD-10 Code: [id number] Patient Notified: No Submission Notes: PA required for plan limitation of max 2 tablets per day. Sent PA via [employer], await response. Hardy Boyce 10/18/20 4:27 PM * Hardy Boyce - 10/18/2020 4:23 PM EDT [facility] Specialty Pharmacy, Prior Authorization Approval Medication Name: ENTRESTO 24 MG-26 MG TABLET Medication ID: [id number] Approval Dates: 10/18/2020 to 04/29/2021 Insurance requirements/notes: None Other Notes: None Case/Reference #: [id number] Approval notification Received via: [facility] Copay: $761.79 per 90 day supply Copay assistance: [employer] Copay Notes: If the patient qualifies he could potential enroll in the currently open [facility] Heart Failure constanza, which provides up to $1000 in copay assistance. Insurance mandated Pharmacy: [facility] Fillable at [facility] Specialty Pharmacy: Yes Pharmacy staff will be reaching out to the patient to inform them of their medication's approval byrandolph health insurance. If applicable, a pharmacist will speak with the patient to offer our specialty pharmacy services and to arrange delivery of their medication. Hardy Boyce 10/19/20 8:38 AM documented in this encounter Plan of Treatment Upcoming Encounters Date Type Department Care Team (Late st Contact Info) Description 06/20/2024 10:00 AM EST Office Visit Dermatology at [place] [address] [place] [address] Mustapha Lemos MD [address] [facility] [place] [address] documented as of this encounter Visit Diagnoses Not on filedocumented in this encounter Care Teams Utility Engineer Relationship Specialty Start Date End Date Tr Hendrix DO [address] [place] [address] PCP - General Family Medicine 05/24/17 documented as of this encounter
--- OUTSIDE RECORDS SUMMARY | 2023-11-13 09:21 | XMS_ITS | Encounter Summary ---
Author Organization [facility] Address [facility] [place] [address] Care Team Providers Care Bedspread Cutter Hand Name Role Phone Ruma Tr Zambrano DO Primary Care Provider [phone] Encounter Details Date Type Department Care Team (Late st Contact Info) Description 02/03/2021 Orders Only Cardiology at [address] [address] Maury Duarte MD [facility] [place] [address] Left bundle branch block (Primary Dx); Coronary artery disease, unspecified vessel or lesion type, unspecified whether angina present, unspecified whether [place] or transplanted heart Social History Tobacco Use [...] 10:00 AM EST Office Visit Dermatology at [place] [address] [facility] [place] [address] Mustapha Lemos MD [address] [facility] [place] [address] documented as of this encounter Visit Diagnoses Diagnosis Left bundle branch block- Primary Other left bundle branch block Coronary artery disease, unspecified vessel or lesion type, unspecified whether angina present, unspecified whether [place] or transplanted heart documented in this encounter Care Teams Bedspread Cutter Hand Relationship Specialty Start Date End Date Tr Hendrix DO [address] [place] [address] PCP - General Family Medicine 05/24/17 documented as of this encounter
--- OUTSIDE RECORDS SUMMARY | 2023-11-13 09:21 | XMS_ITS | Encounter Summary ---
Author Organization [facility] Address [facility] [place] [address] Care Team Providers Care Powerhouse Engineer Name Role Phone HeberjenniferTr DO Primary Care Provider [phone] Reason for Visit * Reason Comments Medication Refill Encounter Details Date Type Department Care Team (Late st Contact Info) Description 08/06/2021 Refill Cardiology at [address] [address] Maury Duarte MD [facility] [place] [address] Medication Refill Social History Tobacco Use Types [...] 10:00 AM EST Office Visit Dermatology at [place] [address] [facility] [address] [place] [address] Mustapha Lemos MD [address] [facility] [place] [address] documented as of this encounter Visit Diagnoses Diagnosis Coronary artery disease, unspecified vessel or lesion type, unspecified whether angina present, unspecified whether [place] or transplanted heart- Primary documented in this encounter Care Teams Powerhouse Engineer Relationship Specialty Start Date End Date Tr Hendrix DO [address] [place] [address] PCP - General Family Medicine 05/24/17 documented as of this encounter
--- OUTSIDE RECORDS SUMMARY | 2023-11-13 09:21 | XMS_ITS | Encounter Summary ---
Author Organization [facility] [place] [address] Care Team Providers Care Web Application Dev Specialist Name Role Phone Tr Hendrix DO Primary Care Provider [phone] Reason for Visit * Diagnostic Test (Routine) - Closed Specialty Diagnoses / Procedures Referred By Contac t Referred To Contact Radiology Diagnoses Stable angina HFrEF (heart failure with reduced ejection fraction) Procedures NM Pharmacologic Stress CT Component NM Exercise Stress CT Component Maury Duarte MD [facility] [place] [address] [place] [address] Referral ID Status Reason Start Date Expiration Date V isits Requested Visits Authorized [id number] Closed Specialty Service Requested 12/30/2020 06/29/2022 1 1 Encounter Details Date Type Department Care Team (Latest Contact Info) Description 01/07/2021 9:21 AM EDT - 01/07/2021 11:59 PM EDT Hospital Encounter [place] [address] Maury Duarte MD [facility] [place] [address] Stable angina; HFrEF (heart failure [...] 10:00 AM EST Office Visit Dermatology at [place] [address] [place] [address] Mustapha Lemos MD [address] [facility] [place] [address] documented as of this encounter Procedures Procedure Name Priority Date/Time Associated Diagnosis Comments NM PHARMACOLOGIC STRESS CT COMPONENT Routine 01/07/2021 11:05 AM EDT Stable angina HFrEF (heart failure with reduced ejection fraction) documented in this encounter Results * NM Pharmacologic Stress CT Component (01/07/2021 11:05 AM EDT) Anatomical Region Laterality Modality Nuclear [...] who have questions please contact the health rn primary care that requested your imaging first. ? Electronically signed by: Kj Fitzgerald MD, [facility] [place] [place] [facility] ([phone]), at 01/07/2021 11:56 AM Narrative 01/07/2021 11:56 [...] patients who have questions please contactthe health rn primary care that requested your imaging first. Electronically signed by: Kj Fitzgerald MD, [facility] [place] [facility]([phone]), at 01/07/2021 11:56 AM Maury Duarte MD IMG NM ORDERABLES documented in this encounter Visit Diagnoses Diagnosis Stable angina Other and unspecified angina pectoris HFrEF (heart failure with reduced ejection fraction) documented in this encounter Care Teams Web Application Dev Specialist Relationship Specialty Start Date End Date Tr Hendrix DO [address] [place] [address] PCP - General Family Medicine 05/24/17 documented as of this encounter
--- OUTSIDE RECORDS SUMMARY | 2023-11-13 09:21 | XMS_ITS | Encounter Summary ---
Author Organization [facility] [place] [address] Care Team Providers Care Barrel Roller Name Role Phone Tr Hendrix DO Primary Care Provider [phone] Reason for Referral * Diagnostic Test (Routine) - Closed Specialty Diagnoses / Procedures Referred By Contac t Referred To Contact Cardiology Diagnoses HFrEF (heart failure with reduced ejection fraction) ASCVD (arteriosclerotic cardiovascular disease) Procedures Echocardiogram Transthoracic([facility]) Maury Duarte MD [facility] [place] [address] [facility] [place] [address] Referral ID Status Reason Start Date Expiration Date V isits Requested Visits Authorized [id number] Closed Specialty Service Requested 05/10/2020 05/10/2021 1 1 Reason for Visit * Diagnostic Test (Routine) - Closed Specialty Diagnoses / Procedures Referred By Contac t Referred To Contact Cardiology Diagnoses HFrEF (heart failure with reduced ejection fraction) ASCVD (arteriosclerotic cardiovascular disease) Procedures Echocardiogram Transthoracic([facility]) Maury Duarte MD [facility] [place] [address] [facility] [place] [address] Referral ID Status Reason Start Date Expiration Date V isits Requested Visits Authorized [id number] Closed Specialty Service Requested 05/10/2020 05/10/2021 1 1 Encounter Details Date Type Department Care Team (Latest Contact Info) Description 08/30/2020 10:10 AM EDT - 08/30/2020 11:59 PM EDT Hospital Encounter Non-[place] [phone] Maury Duarte MD [facility] [place] [address] HFrEF (heart failure with reduced ejection fraction); ASCVD (arteriosclerotic cardiovascular disease) Discharge Disposition: Home Social History Tobacco Use [...] hr 04/11/2019 sacubitriL-valsartan (Entresto) 24-26 mg Tablet tablet Take 1.5 tablets by mouth 2 times daily. 60 tablet 12 08/30/2020 10/08/2020 polyethylene glycoL (Miralax) 17 gram/dose Powder USE [...] 10:00 AM EST Office Visit Dermatology at [place] [address] [place] [address] Mustapha Lemos MD [address] [facility] DERMATOLOGY [place], [place] [id number] documented as of this encounter Procedures Procedure Name Priority Date/Time Associated Diagnosis Comments ECHO COMPLETE W CONTRAST Routine 08/30/2020 11:41 AM EDT HFrEF (heart failure with reduced ejection fraction) ASCVD (arteriosclerotic cardiovascular disease) documented in this encounter Results * ECHO COMPLETE W CONTRAST (08/30/2020 11:41 AM EDT) EF 39 HEARTLAB SYSTEM Anatomical Region Laterality Modality Other 08/30/2020 Narrative 08/30/2020 11:59 AM EDT Procedure: ?Transthoracic Echocardiogram Patient: ?CONSTANCE Cruz ?? (Age): 1945(75y) Med Rec#: ? [id number] ?Sex: ?M ? Site Loc: ? [place] ?Ht / Wt: ??175.26(cm)/91.1 Pt. Loc: ?Echo Lab ?BSA: ?2.07 Study Date: ?? 08/30/2020 ?Pt. Type: Outpatient Tape: ? Referring: TYLER Reading: Maury Duarte ??([id number]) Flight Line Service Attendant: Yaneli Streeter Diagnosis: *Unspecified systolic (congestive) heart failure (I50.20) *Atherosclerotic heart disease of [place] coronary artery without angina pectoris (I25.10) BP: ? 132/64 SUMMARY: 1. The left ventricle is mildly dilated [...] prior echo 03/15/2020, findings are overall similar. Findings ? : Study Quality: ? Technically limited Left Ventricle: ? The left ventricle is mildly dilated.LVEDVI 87 ml/m2 by 3D) ?Left ventricular wall thickness is normal. ?There is no evidence of LVOT obstruction. ?No ventricular septal defect is visualized. ?Global left ventricular systolic function is moderately reduced. ?The quantitative left ventricular ejection fraction by biplane Chen's method is 42%. ?The quantitative left ventricular ejection fraction by 3-D rendering is 39%. ?There are left ventricular segmental wall motion abnormalities present, as shown in the diagram below. ?There is a left ventricular septal wall motion abnormality observed, possibly due to the presence of a left bundle branch block. ?Left ventricular diastolic function is abnormal. ?The left ventricular diastolic filling pattern is consistent with impaired LV relaxation. ?Doppler assessment is consistent with normal left sided filling pressure. ?The ??mid anteroseptal, mid anterior, mid anterolateral, apical septal, apical anterior, and ??apical lateral wall segments are hypokinetic (score 2). ?Overall wallmotion score index is ??1.38 Left Atrium: ? The left atrium is normal in size. Right Ventricle: ? The right ventricle is normal in size. ?Right ventricular global systolic function is normal. ?Pulmonary artery hypertension could not be assessed due to inadequate tricuspid regurgitation jet. Right Atrium: ? The right atrium is normal in size. Aortic Valve: ? The aortic valve is tricuspid. ?The aortic valve leaflets are mildly thickened. ?Systolic excursion of the aortic valve is normal. ?There is aortic annular calcification. ?There is no evidence of aortic valve stenosis. ?There is no evidence of aortic regurgitation. Mitral Valve: ? The mitral valve leaflets are mildly thickened. ?There is posterior mitral annular calcification. ?There is no evidence of mitral stenosis. ?There is mild (1+/4+) mitral regurgitation present. Tricuspid Valve: ? The tricuspid valve appears normal in structure and function. ?There is trace tricuspid regurgitation present. Pulmonic Valve: ? The pulmonic valve appears normal. ?There is trace pulmonic regurgitation present. Pericardium: ? The pericardium appears normal and there is no evidence of a pericardial effusion. Aorta: ? There is mild dilatation of the aortic root.3.7 cm ?There is mild dilatation of the ascending aorta.3.6 cm Pulmonary Artery: ? The main pulmonary artery appears normal. Venous: ? The inferior vena cava is poorly visualized. ?The inferior vena cava appears normal in size. ?There is a greater than 50% respiratory change in the inferior vena cava dimension. Misc: ? Two-dimensional echo, spectral Doppler and color Doppler performed. ?Optison contrast (one 3 ml vial) was used to enhance endocardial definition. Excess contrast was discarded. Chambers 2D ?Value ?Units (Range) ? RVIDd ??Base ? 3.7 ?cm ? RVIDd ??Mid (AP) ? 3 ?cm ? IVSd (2D) ? 1.1 ?cm ? LVPWd (2D) ?1.14 ? cm ? IVS:LVPW ratio (2D) 0.96 ? ratio ? RWT (2D) ?0.43 ? ratio ? RWT PW (2D) ? 0.44 ? ratio ? LVIDd (2D) ?5.15 ? cm ? LVIDs (2D) ?4.08 ? cm ? LVIDd (2D) index ?2.49 ? cm/m2 ? LVIDs (2D) index ?1.97 ? cm/m2 ? LV FS (2D) ?20.86 ?% ? EF Teichholz (2D) ?? 42.2 ? % ? Ao root diameter (2D3.66 ? cm (2.1 - 3.6) ? Ascending Ao ?3.58 ? cm (2 - 3.5) ? Volumes/Mass ?Value ?Units (Range) ? LA Area 4 CH ?16 ? cm2 (<21) ? LA ESV BP (A/L) inde25.28 ?ml/m2 ? RA AREA 4CH ? 12 ? cm2 ? LV ESV SP 4CH (MOD) 111.77 ? ml ? LV ESV SP 2CH (MOD) 118.11 ? ml ? LV EDV BP ? 202.41 ? ml ? LV ESV BP ? 116.89 ? ml ? LV EDV BP index ? 97.78 ?ml/m2 ? LV ESV BP index ? 56.47 ?ml/m2 ? BP EF (MOD) ? 42.25 ?% ? LV mass (2D) ?222.82 ? g ? LV mass (2D) index ??107.64 ? g/m2 ? Diastolic/Systolic Function ?Value ?Units (Range) ? MV E-wave Vmax ?0.48 ? m/sec ? MV deceleration idwm919.38 ? msec ? MV A-wave Vmax ?0.76 ? m/sec ? MV E:A ratio ?0.64 ? ratio ? LV septal e' Vmax ?? 0.09 ? m/sec ? LV lateral e' Vmax ??0.1 ?m/sec ? LV average e' Vmax ??0.1 ?m/sec ? LV E:e' septal ratio5.37 ? ratio ? LV E:e' lateral rati4.83 ? ratio ? LV average E:e' rati5.09 ? ratio ? Tricuspid Valve ?Value ?Units (Range) ? TAPSE ? 2.3 ?cm ? RV lateral s' Vmax ??0.13 ? m/sec ? Wall Motion: Segment Name ?Rest ? Base-Anteroseptal ?? Normal ? Base-Anterior ? Normal ? Base-Anterolateral ??Normal ? Base-Posterolateral Normal ? Base-Inferior ? Normal ? Base-Inferoseptal ?? Normal ? Mid-Anteroseptal ?Hypokinetic ? Mid-Anterior ?Hypokinetic ? Mid-Anterolateral ?? Hypokinetic ? Mid-Posterolateral ??Normal ? Mid-Inferior ?Normal ? Mid-Inferoseptal ?Normal ? Amity-Septal ? Hypokinetic ? Amity-Anterior ? Hypokinetic ? Amity-Lateral ?Hypokinetic ? Amity-Inferior ? Normal ? Amity-Tip ?Hypokinetic ? This report has been electronically signed by: Maury Duarte ? 08/30/2020 11:59:00 Images reviewed and interpretation verified [facility] Cardiac Ultrasound Laboratory Procedure Note Maury Duarte MD - 08/30/2020 Procedure: Transthoracic Echocardiogram Patient: CONSTANCE Cruz DOB(Age): 1945(75y) Med Rec#: [id number] Sex: M Site Loc: [place] Ht / Wt: 175.26(cm)/91.1 Pt. Loc: Echo Lab BSA: 2.07 Study Date: 08/30/2020 Pt. Type: Outpatient Tape: Referring: TYLER Reading: Maury Duarte ([id number]) Flight Line Service Attendant: Yaneli Streeter Diagnosis: *Unspecified systolic (congestive) heart failure (I50.20) *Atherosclerotic heart disease of [place] coronary artery without angina pectoris (I25.10) BP: 132/64 SUMMARY: 1. The left ventricle is mildly dilated [...] prior echo 03/15/2020, findings are overall similar. Findings : Study Quality: Technically limited Left Ventricle: The left ventricle is mildly dilated.LVEDVI 87 ml/m2 by 3D) Left ventricular wall thickness is normal. There is no evidence of LVOT obstruction. No ventricular septal defect is visualized. Global left ventricular systolic function is moderately reduced. The quantitative left ventricular ejection fraction by biplane Chen's method is 42%. The quantitative left ventricular ejection fraction by 3-D rendering is 39%. There are left ventricular segmental wall motion abnormalities present, as shown in the diagram below. There is a left ventricular septal wall motion abnormality observed, possibly due to the presence of a left bundle branch block. Left ventricular diastolic function is abnormal. The left ventricular diastolic filling pattern is consistent with impaired LV relaxation. Doppler assessment is consistent with normal left sided filling pressure. The mid anteroseptal, mid anterior, mid anterolateral, apical septal, apical anterior, and apical lateral wall segments are hypokinetic (score 2). Overall wallmotion score index is 1.38 Left Atrium: The left atrium is normal in size. Right Ventricle: The right ventricle is normal in size. Right ventricular global systolic function is normal. Pulmonary artery hypertension could not be assessed due to inadequate tricuspid regurgitation jet. Right Atrium: The right atrium is normal in size. Aortic Valve: The aortic valve is tricuspid. The aortic valve leaflets are mildly thickened. Systolic excursion of the aortic valve is normal. There is aortic annular calcification. There is no evidence of aortic valve stenosis. There is no evidence of aortic regurgitation. Mitral Valve: The mitral valve leaflets are mildly thickened. There is posterior mitral annular calcification. There is no evidence of mitral stenosis. There is mild (1+/4+) mitral regurgitation present. Tricuspid Valve: The tricuspid valve appears normal in structure and function. There is trace tricuspid regurgitation present. Pulmonic Valve: The pulmonic valve appears normal. There is trace pulmonic regurgitation present. Pericardium: The pericardium appears normal and there is no evidence of a pericardial effusion. Aorta: There is mild dilatation of the aortic root.3.7 cm There is mild dilatation of the ascending aorta.3.6 cm Pulmonary Artery: The main pulmonary artery appears normal. Venous: The inferior vena cava is poorly visualized. The inferior vena cava appears normal in size. There is a greater than 50% respiratory change in the inferior vena cava dimension. Misc: Two-dimensional echo, spectral Doppler and color Doppler performed. Optison contrast (one 3 ml vial) was used to enhance endocardial definition. Excess contrast was discarded. Chambers 2D Value Units (Range) RVIDd Base 3.7 cm RVIDd Mid (AP) 3 cm IVSd (2D) 1.1 cm LVPWd (2D) 1.14 cm IVS:LVPW ratio (2D) 0.96 ratio RWT (2D) 0.43 ratio RWT PW (2D) 0.44 ratio LVIDd (2D) 5.15 cm LVIDs (2D) 4.08 cm LVIDd (2D) index 2.49 cm/m2 LVIDs (2D) index 1.97 cm/m2 LV FS (2D) 20.86 % EF Teichholz (2D) 42.2 % Ao root diameter (2D3.66 cm (2.1 - 3.6) Ascending Ao 3.58 cm (2 - 3.5) Volumes/Mass Value Units (Range) LA Area 4 CH 16 cm2 (<21) LA ESV BP (A/L) inde25.28 ml/m2 RA AREA 4CH 12 cm2 LV ESV SP 4CH (MOD) 111.77 ml LV ESV SP 2CH (MOD) 118.11 ml LV EDV BP 202.41 ml LV ESV BP 116.89 ml LV EDV BP index 97.78 ml/m2 LV ESV BP index 56.47 ml/m2 BP EF (MOD) 42.25 % LV mass (2D) 222.82 g LV mass (2D) index 107.64 g/m2 Diastolic/Systolic Function Value Units (Range) MV E-wave Vmax 0.48 m/sec MV deceleration hkfg173.38 msec MV A-wave Vmax 0.76 m/sec MV E:A ratio 0.64 ratio LV septal e' Vmax 0.09 m/sec LV lateral e' Vmax 0.1 m/sec LV average e' Vmax 0.1 m/sec LV E:e' septal ratio5.37 ratio LV E:e' lateral rati4.83 ratio LV average E:e' rati5.09 ratio Tricuspid Valve Value Units (Range) TAPSE 2.3 cm RV lateral s' Vmax 0.13 m/sec Wall Motion: Segment Name Rest Base-Anteroseptal Normal Base-Anterior Normal Base-Anterolateral Normal Base-Posterolateral Normal Base-Inferior Normal Base-Inferoseptal Normal Mid-Anteroseptal Hypokinetic Mid-Anterior Hypokinetic Mid-Anterolateral Hypokinetic Mid-Posterolateral Normal Mid-Inferior Normal Mid-Inferoseptal Normal Amity-Septal Hypokinetic Amity-Anterior Hypokinetic Amity-Lateral Hypokinetic Amity-Inferior Normal Amity-Tip Hypokinetic This report has been electronically signed by: Maury Duarte 08/30/2020 11:59:00 Images reviewed and interpretation verified [facility] Cardiac Ultrasound Laboratory Maury Duarte MD ECHO ORDERABLES documented in this encounter Visit Diagnoses Diagnosis HFrEF (heart failure with reduced ejection fraction) ASCVD (arteriosclerotic cardiovascular disease) Unspecified cardiovascular disease documented in this encounter Administered Medications Inactive Administered Medications - up to 3 most recent administrations Medication Order MAR Action Action Date Dose Rate Site perflutren protein-A microsphers ([employer]) (0.22 mg/mL) injection 0.5 mL 0.5 mL, Intravenous, ONCE PRN, 1 dose, Starting on Sun08/30/20 at 1141, Until Sun08/30/20 at 1142, for enhancement of sub-optimal echo images, Echo Lab (Intra-Procedure), Routine Given 08/30/2020 11:42 AM EDT 0.5 mLs documented in this encounter Care Teams Barrel Roller Relationship Specialty Start Date End Date Tr Hendrix DO [address] [place] [address] PCP - General Family Medicine 05/24/17 documented as of this encounter
--- OUTSIDE RECORDS SUMMARY | 2023-11-13 09:21 | XMS_ITS | Encounter Summary ---
[place] [address] Care Team Providers Care Hogshead Salvage Name Role Phone Tr Hendrix DO Primary Care Provider [phone] Reason for Visit * Reason Comments Medication Refill Encounter Details Date Type Department Care Team (Late st Contact Info) Description 07/29/2021 Refill Dermatology at [address] [phone] Mustapha Lemos MD [address] [place] [address] Social History Tobacco Use Types Packs/Day Years [...] 10:00 AM EST Office Visit Dermatology at [address] [address] Mustapha Lemos MD [address] [facility] [place] [address] documented as of this encounter Visit Diagnoses Not on filedocumented in this encounter Care Teams Hogshead Salvage Relationship Specialty Start Date End Date Tr Hendrix DO [address] [place] [address] PCP - General Family Medicine 05/24/17 documented as of this encounter
--- OUTSIDE RECORDS SUMMARY | 2023-11-13 09:21 | XMS_ITS | Encounter Summary ---
Author Organization [facility] [place] [address] Care Team Providers Care Supervisor Cook House Name Role Phone Ruma Tr Zambrano DO Primary Care Provider [phone] Reason for Visit * Reason Onset Date Comments Medication Refill 10/18/2020 Encounter Details Date Type Department Care Team (Late st Contact Info) Description 10/18/2020 Refill Cardiology at [address] [address] Maury Duarte MD [facility] [place] [address] Medication Refill Social History Tobacco Use Types [...] 10:00 AM EST Office Visit Dermatology at [place] [address] [place] [address] Mustapha Lemos MD [address] [facility] [place] [address] documented as of this encounter Visit Diagnoses Diagnosis Heart failure with reduced ejection fraction- Primary documented in this encounter Care Teams Supervisor Cook House Relationship Specialty Start Date End Date Tr Hendrix DO [address] [place] [address] PCP - General Family Medicine 05/24/17 documented as of this encounter
--- OUTSIDE RECORDS SUMMARY | 2023-11-13 09:21 | XMS_ITS | Encounter Summary ---
Author Organization [facility] [address] Care Team Providers Care Spa Supervisor Name Role Phone Tr Hendrix DO Primary Care Provider [phone] Encounter Details Date Type Department Care Team (Late st Contact Info) Description 06/22/2020 Telephone Cardiology at [address] [phone] Melissa Koenig RN Social History Tobacco Use [...] Encounter - Melissa Koenig RN - 06/22/2020 9:27 AM EST Clear connection established. Immediately started with his Entresto, itching in his lower back. He used lidocaine patches to treat. Unable to describe due to location. He reports the rash is less itchy His PCP saw this rash. Noswelling, no SOB. He continues on his Entresto bid. Melissa Koenig RN 4A Cardiology ' documented in this encounter Plan of Treatment Upcoming Encounters Date Type Department Care Team (Late st Contact Info) Description 06/20/2024 10:00 AM EST Office Visit Dermatology at [place] [address] [place] [address] Mustapha Lemos MD [address] [facility] [place] [address] documented as of this encounter Visit Diagnoses Not on filedocumented in this encounter Care Teams Spa Supervisor Relationship Specialty Start Date End Date Tr Hendrix DO [address] [place] [address] PCP - General Family Medicine 05/24/17 documented as of this encounter
--- OUTSIDE RECORDS SUMMARY | 2023-11-13 09:21 | XMS_ITS | Encounter Summary ---
[place] [address] Care Team Providers Care Flash Oven Operator Name Role Phone Tr Hendrix DO Primary Care Provider [phone] Reason for Visit * Diagnostic Test (Routine) - Closed Specialty Diagnoses / Procedures Referred By Contac t Referred To Contact Radiology Diagnoses Stable angina HFrEF (heart failure with reduced ejection fraction) Procedures NM Pharmacologic Stress and Rest Myocardial Perfusion NM Exercise Stress and Rest Myocardial Perfusion Maury Duarte MD [facility] [place] [address] [place] [address] Referral ID Status Reason Start Date Expiration Date V isits Requested Visits Authorized [id number] Closed Specialty Service Requested 12/30/2020 07/01/2022 1 1 Encounter Details Date Type Department Care Team (Latest Contact Info) Description 01/07/2021 9:21 AM EDT - 01/07/2021 11:59 PM EDT Hospital Encounter [place] [address] Maury Duarte MD [facility] [address] Discharge Disposition: Home Social History Tobacco Use [...] 10:00 AM EST Office Visit Dermatology at [place] [address] [facility] [place] [phone] Mustapha Lemos MD [address] [facility] [place] [address] documented as of this encounter Procedures Procedure Name Priority Date/Time Associated Diagnosis Comments NM PHARMACOLOGIC STRESS AND REST MYOCARDIAL PERFUSION Routine 01/07/2021 10:39 AM EDT Stable angina HFrEF (heart failure with reduced ejection fraction) documented in this encounter Visit Diagnoses Not on filedocumented in this encounter Administered Medications Inactive Administered Medications - up to 3 most recent administrations Medication Order MAR Action Action Date Dose Rate Site regadenoson (Lexiscan) injection 0.4 mg 0.4 mg, Intravenous, ONCE, 1 dose, On Sun01/07/21 at 1100, Radiology Contrast, Routine Given 01/07/2021 10:35 AM EDT 0.4 mg technetium (Tc-99m) sestamibi injection 0-30 mCi 0-30 mCi, Intravenous, 2 TIMES DAILY PRN, 2 doses, Starting on Sun01/07/21 at 0939, Until Sun01/07/21 at 1035, Per Protocol, Radiology Contrast, Routine Given 01/07/2021 10:35 AM EDT 24.6 mCi Given 01/07/2021 9:30 AM EDT 8.6 mCi Le ft Arm documented in this encounter Care Teams Flash Oven Operator Relationship Specialty Start Date End Date Tr Hendrix DO [address] [place] [address] PCP - General Family Medicine 05/24/17 documented as of this encounter
--- OUTSIDE RECORDS SUMMARY | 2023-11-13 09:21 | XMS_ITS | Encounter Summary ---
[place] [address] Care Team Providers Care Special Agent Group Insurance Name Role Phone Tr Hendrix DO Primary Care Provider [phone] Reason for Visit * Diagnostic Test (Routine) - Closed Specialty Diagnoses / Procedures Referred By Contac t Referred To Contact Radiology Diagnoses Stable angina HFrEF (heart failure with reduced ejection fraction) Procedures NM Pharmacologic Stress and Rest Myocardial Perfusion NM Exercise Stress and Rest Myocardial Perfusion Maury Duarte MD [facility] [place] [address] [place] [address] Referral ID Status Reason Start Date Expiration Date V isits Requested Visits Authorized [id number] Closed Specialty Service Requested 12/30/2020 07/01/2022 1 1 Encounter Details Date Type Department Care Team (Latest Contact Info) Description 01/07/2021 9:20 AM EDT Hospital Encounter [place] [address] Maury Duarte MD [facility] [place] [address] Discharge Disposition: Home Social History [...] 10:00 AM EST Office Visit Dermatology at [place] [address] [place] [phone] Mustapha Lemos MD [address] [facility] [address] documented as of this encounter Procedures Procedure [...] who have questions please contact the health day care worker that requested your imaging first. ? Electronically signed by: Kj Fitzgerald MD, [facility] ([phone]), at 01/07/2021 11:56 AM Narrative 01/07/2021 11:56 [...] patients who have questions please contactthe health day care worker that requested your imaging first. Maury Duarte MD IMG NM ORDERABLES * NM Pharmacologic Stress and Rest Myocardial [...] who have questions please contact the health day care worker that requested your imaging first. ? Electronically signed by: Kj Fitzgerald MD, [facility] ([phone]), at 01/07/2021 11:56 AM Narrative 01/07/2021 11:56 [...] patients who have questions please contactthe health day care worker that requested your imaging first. Maury Duarte MD IMG NM ORDERABLES documented in this encounter Visit Diagnoses Not on filedocumented in this encounter Care Teams Special Agent Group Insurance Relationship Specialty Start Date End Date Tr Hendrix DO [address] [place] [address] PCP - General Family Medicine 05/24/17 documented as of this encounter
--- OUTSIDE RECORDS SUMMARY | 2023-11-13 09:21 | XMS_ITS | Encounter Summary ---
Author Organization [facility] Address [facility] [place] [address] Care Team Providers Care Town Planner Name Role Phone Tr Hendrix DO Primary Care Provider [phone] Encounter Details Date Type Department Care Team (Latest Contact Info) Description 01/07/2021 9:20 AM EDT Hospital Encounter Non[place] [address] Maury Duarte MD [facility] [place] [address] Stable angina; HFrEF (heart failure with reduced [...] 10:00 AM EST Office Visit Dermatology at [place] [address] [place] [address] Mustapha Lemos MD [address] [facility] [place] [address] documented as of this encounter Procedures Procedure Name Priority Date/Time Associated Diagnosis Comments NUCLEAR PHARMACOLOGIC STRESS CARDIOLOGY Routine 01/07/2021 10:48 AM EDT Stable angina HFrEF (heart failure with reduced ejection fraction) documented in this encounter Results * Nuclear Pharmacologic Stress Cardiology (01/07/2021 10:48 AM EDT) Anatomical Region Laterality Modality Other Maury Duarte MD CARDIAC SERVICES ORD ERABLES documented in this encounter Visit Diagnoses Diagnosis Stable angina Other and unspecified angina pectoris HFrEF (heart failure with reduced ejection fraction) documented in this encounter Care Teams Town Planner Relationship Specialty Start Date End Date Tr Hendrix DO [address] [place] [address] PCP - General Family Medicine 05/24/17 documented as of this encounter
--- OUTSIDE RECORDS SUMMARY | 2023-11-13 09:21 | XMS_ITS | Encounter Summary ---
Author Organization [facility] [place] [address] Care Team Providers Care Senior Editor Name Role Phone Heberjennifer Tr Zambrano DO Primary Care Provider [phone] Encounter Details Date Type Department Care Team (Late st Contact Info) Description 05/31/2020 Telephone Cardiology at [address] [address] Faby Good RN Social History [...] Telephone Encounter - Faby Good RN - 05/31/2020 2:51 PM EST Patient was called and advised per Dr. Duarte that he needs another F/U BMP done in about 2 weeks after his last one showed a slightly elevated BUN and CRE. Patient was informed the order went to [facility] for when he can do this at his convenience. No questions posed. Faby Purvis RNcharrer [facility] General Team-Dmitriy documented in this encounter Plan of Treatment Upcoming Encounters Date Type Department Care Team (Late st Contact Info) Description 06/20/2024 10:00 AM EST Office Visit Dermatology at [place] [address] [place] [address] Mustapha Lemos MD [address] [place] [address] documented as of this encounter Visit Diagnoses Not on filedocumented in this encounter Care Teams Senior Editor Relationship Specialty Start Date End Date Tr Hendrix DO [address] [place] [address] PCP - General Family Medicine 05/24/17 documented as of this encounter
--- OUTSIDE RECORDS SUMMARY | 2023-11-13 09:21 | XMS_ITS | Encounter Summary ---
Author Organization [facility] [place] [address] Care Team Providers Care Railroad Car Letterer Name Role Phone Tr Hendrix DO Primary Care Provider [phone] Encounter Details Date Type Department Care Team (Late st Contact Info) Description 07/01/2020 Telephone Cardiology at [address] [address] Faby Good, RN Social History [...] Telephone Encounter - Faby Good RN - 07/01/2020 11:15 AM EST Patient called back with an update that after being off Entresto he has not noticed any improvementin his rash and itchy skin so he is going back on it ( he says he can afford the cost). Patient wonders if the Metoprolol is to blame but overall he still says that it is tolerable and hedoesn't want to jeopardize his heart health by not taking his prescribed medications. He says it'snot that bad and the rash on his lower back is actually a little less noticeable. Patient admits to having 2 glasses of wine nightly which he enjoys. Patient agrees to call team nurse back if he has any worsening sx. He has a F/U appt. in August. Faby Purvis RNvending machine mechanic [facility] documented in this encounter Plan of Treatment Upcoming Encounters Date Type Department Care Team (Late st Contact Info) Description 06/20/2024 10:00 AM EST Office Visit Dermatology at [place] [address] [place] [address] Mustapha Lemos MD [address] [place] [address] documented as of this encounter Visit Diagnoses Not on filedocumented in this encounter Care Teams Railroad Car Letterer Relationship Specialty Start Date End Date Tr Hendrix DO [address] [place] [address] PCP - General Family Medicine 05/24/17 documented as of this encounter
--- OUTSIDE RECORDS SUMMARY | 2023-11-13 09:21 | XMS_ITS | Encounter Summary ---
Author Organization [facility] Address [facility] [place] [address] Care Team Providers Care Slot Ambassador Name Role Phone HeberjenniferTr DO Primary Care Provider [phone] Reason for Visit * Reason Comments Medication Refill Encounter Details Date Type Department Care Team (Late st Contact Info) Description 02/22/2022 Refill Cardiology at [address] [address] Maury Duarte MD [facility] [place] [address] Medication Refill Social History Tobacco Use Types [...] 10:00 AM EST Office Visit Dermatology at [place] [address] [place] [phone] Mustapha Lemos MD [address] [facility] [place] [address] documented as of this encounter Visit Diagnoses Diagnosis Heart failure with reduced ejection fraction- Primary documented in this encounter Care Teams Slot Ambassador Relationship Specialty Start Date End Date Tr Hendrix DO [place] [place] [address] PCP - General Family Medicine 05/24/17 documented as of this encounter
--- OUTSIDE RECORDS SUMMARY | 2023-11-13 09:22 | XMS_ITS | Encounter Summary ---
Author Organization 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 Nolasco returns status post open abdominal aortic and bilateral common iliac aneurysm repair.He underwent bifurcated graft placement via transperitoneal approach with clamp placement between the 2 renal arteries. We were able to salvage the left hypogastric artery and oversewed the right hypo gastric artery. He has recovered well. He is regaining energy. He is eating and drinking and moving his bowels normally. He feels well hydrated. He denies any pain and no longer requires pain medication. He denies any complications with his midline wound. On exam, he has normal vital signs. His abdomen is soft nontender nondistended. There is no palpable aneurysm. His midline wound is well-healed. Celso were removed. There is no hernia. He has palpable femoral and pedal pulses. CTA today demonstrates a well situated graft with complete repair of his aneurysms. There is no evidence of infection hematoma or other complication. Her right hypogastric artery is ligated. 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 Mr. Nolasco is cleared to be bathe and soak his wound at this point. I urged him to abstain from any straining or lifting for at least 90 days postop and to take it easy in this regard for 1 year so as to lower his risk of a ventral hernia. 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
--- OUTSIDE RECORDS SUMMARY | 2023-11-13 09:22 | XMS_ITS | Encounter Summary ---
[place] [address] Care Team Providers Care Oyster Cultivator Name Role Phone Tr Hendrix DO Primary Care Provider [phone] Reason for Visit * Auth/Cert Specialty Diagnoses / Procedures Referred By Gloria rubio Referred To Contact Diagnoses Accelerating angina Cresendo Angina Referral ID Status Reason Start Date Expiration Date Visits Re quested Visits Authorized [id number] 1 1 Encounter Details Date Type Department Care Team (Late st Contact Info) Description 03/16/2020 2:00 PM EST - 03/16/2020 3:00 PM EST [place] [id number] Fitz Hauser MD [facility] [place] [address] CARDIAC CATHETERIZATION Social History Tobacco Use Types Packs/Day Years [...] Sign Reading Time Taken Comments Blood Pressure 141/62 03/16/2020 8:00 AM EST Pulse 48 03/16/2020 8:00 AM EST Temperature 36.2 ??C (97.2 ??F) 03/16/2020 8:00 AM ES T Respiratory Rate 17 03/16/2020 8:00 AM EST Oxygen Saturation 97% 03/16/2020 8:00 AM EST Inhaled Oxygen Concentration - - Weight 89.9 kg (198 lb 3.1 oz) 03/16/2020 6:15 A M EST Height - - Body Mass Index 29.04 06/20/2019 9:35 AM EST documented in this encounter Discharge Summaries * Sammie Bourne APRN - 03/16/2020 4:38 PM EST Images from the original note were not included. Discharge Summary Patient Name: Storm Nolasco Patient Age: 74 y.o. Language: Romansh Race: White Ethnicity: Not nor Admit date: 03/15/2020 Discharge date and time: 03/17/2020 Attending Physician: Maury Duarte MD Discharge Physician: Maury Duarte MD Follow-up Recommendations for Providers: 1. Discharge weight was 89.2kg. 2. Cardiac medications at discharge include amlodipine 5mg, ASA 81mg, lipitor 80mg, plavix 75mg, losartan 25mg, metoprolol XL 12.5mg daily. Inpatient Provider Contact Information: MD Sammie Bajwa, HOT MILL SHEARER [phone] Discharge Diagnoses (Hospital Problems) and Secondary Diagnoses (Chronic Problems): Active Hospital Problems Diagnosis ??? Accelerating angina Resolved Hospital Problems No resolved problems to display. Active Non-Hospital Problems Diagnosis ??? AAA (abdominal aortic aneurysm) ??? Pre-operative [...] urinary obstruction ??? Malignant melanoma of skin ??? Hypertension Operations/Major Procedures: Operations: Procedure(s): CARDIAC CATHETERIZATION Hemodynamics: Left Heart Pressures Resting: Syst Diast EDP a v m Ao 128 56 82 LV 121 14 Coronary Angiography: Dominance: Right Left Main There was mild diffuse (<=25% stenosis) disease of the entire vessel segment of the left main artery. The mid segment of the left main had an eccentric diffuse 35% stenosis. Left Anterior Descending There was mild diffuse (<=25% stenosis) disease of the entire vessel segment of the left anterior descending artery (LAD). Left Circumflex There was mild diffuse (<=25% stenosis) disease of the entire vessel segment of the left circumflex artery (LCX). The proximal segment of the LCX had a single discrete 80% stenosis. Right Coronary Artery There was mild diffuse (<=25% stenosis) disease of the entire vessel segment of the right coronary artery (RCA). The proximal segment of the RCA had a single discrete total occlusion. Distal flow was via collaterals from the LAD and collaterals from the LCX. Intravascular Imaging/Physiology: Intravascular Ultrasound was performed in the proximal LCX using a 6 Fr EBU 4.0 guiding catheter and a 3.5 Fr [place] [facility] 20 Mhz. Imaging was successful. Image quality was good. The proximal LCX showed mild diffuse atherosclerotic plaque with no significant calcification. Indication for Intervention: Coronary intervention was indicated for treatment of a critical lesion post a myocardial infarction. The priority for the procedure was Urgent. The NCDR indication for the procedure was New Onset Angina <=2 months. LVEF within one week was 55%. Syntax Score was Intermediate. Intervention Summary: Left Circumflex Artery Proximal 80% Stent insertion was performed on the 80% stenosis in the proximal segment of the LCX. This was a de fredrick lesion. According to the ACC/AHA classification system, this lesion was a type B1 high risk lesion. Primary prevention of restenosis was the indication for stent insertion. This was the culprit lesion. A guidewire was placed across this lesion. Vessel flow pre intervention was ITZEL 3. Lesion length was 12mm. Stent insertion was accomplished through a 6 Fr. EBU 4.0 guide. The lesion was predilated with a 3.00mm EMERGE 12 MM balloon with a maximum inflation pressure of 20 atmospheres. A premounted 3.50 x 12 mm Resolute JULIAN (YVAN) was deployed with a maximum inflation pressure of 24 atmospheres. The final outcome was defined as successful. The residual stenosis following this intervention was 10%. The final ITZEL flow was 3. Vascular Access: Vascular Access Management: Mechanical Compression of the right radial artery access site was performed. Dual Antiplatelet (DAPT) Recommendations: Drug eluting stent (YVAN) inserted. P2Y12 Loading dose Clopidogrel 600 mg PO given in lab. Recommended anti-platelet/anti-thrombotic regimen: Start aspirin 81 mg daily now and continue for indefinitely. Start clopidogrel 75 mg daily now and continue for 12 months then stop. These recommendations are made at the time of the intervention. Patient and provider preferences or a changing clinical situation may require modification of this regimen. Consult [facility] for questions. This patient has a high DAPT score and may benefit from prolonged (12-30 months) dual antiplatelet therapy. If the patient has completed 12 months of DAPT without having a major bleeding or ischemic event and the patient is NOT on chronic anticoagulation. This should be used for guidance in the overall conversation about prolonged dual antiplatelet therapy and not as a recommendation for or against any medical treatment. Consult http://tools.acc.org/DAPTriskapp/#!/content/calculator/ or [facility] Inter[facility] for questions. 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 History of Presentation: Storm Nolasoc is a 74 yo M with HTN, HLD, AAA and b/l common iliac artery repair in 05/2019, former smoker who presented to [facility] with intermittent, exertional chest pressure, relieved with rest over the past few months. ??Initially, he attributed the pain to muscle aches and was taking tylenol for relief, but then starting thinking it may be angina. PCP sent him for an exercise nuclear stress test 2 weeks ago, which was abnormal, showing an EF 34% with a fixed apical defect, no definite ischemia, but interpretation was limited by LBBB (not new, documented after AAA repair in 05/2019). Patient was scheduled to see Dr. Mcduffie next week, but presented to the ED today due to 5/10 chest pressurewith minimal exertion, not entirely relieved with rest (1/10 at rest). CXR with no acute process. He is hemodynamically stable, EKG without acute ischemic changes, but does show frequent PVCs. First troponin negative. Hospital Course: Accelerating angina Admitted on 03/15 for management of accelerating angina in the setting of an abnormal exercise MPI.Troponin negative at OSH and here. Continued GDMT and started a heparin drip. Echocardiogram revealed a newly reduced EF to 40% and apical and anterior wall motion abnormalities. We proceeded with a cardiac catheterization which revealed a FOIL OPERATOR of the RCA (with collaterals) and a 90% proximal LCx lesion. The LCx lesion was successfully stented with a drug eluting stent. Patient was evaluated by cardiac rehab and agreed to a referral to a local program. Patient ambulated the unit without difficulty and was discharged home on 03/17 in stable condition. ?? Hypertension Continue amlodipine 5mg and losartan 25mg. BP: (98-149)/(48-68) was the BP in 24 hours prior to discharge. ?? HLD Chol 105, LDL 50. Continued high intensity statin. Functional and Cognitive Status: A+Ox3, ambulates independently Important Studies and Lab Data: Labs: Lab Results Component Value Date WBC 7.0 03/17/2020 HGB 13.7 03/17/2020 HCT 39.7 (L) 03/17/2020 PLATELET 157 03/17/2020 No results for input(s): INR in the last 168 hours. Lab Results Component Value Date NA 136 03/17/2020 K 4.1 03/17/2020 CL 105 03/17/2020 CO2 21 (L) 03/17/2020 BUN 19 03/17/2020 CREATININE 0.92 03/17/2020 Recent Labs 03/16/20 0355 TSH 3.13 Recent Labs 03/16/20 0355 HA1C 5.2 Recent Labs 03/15/20 1549 TROPONINT <0.01 Lab Results Component Value Date CHLPL 105 03/16/2020 HDL 36 03/16/2020 CHOLHDL 2.9 03/16/2020 TRIG 93 03/16/2020 LDLCHOL 50 03/16/2020 Studies: SUMMARY: 1. The left ventricular chamber size is normal. Borderline concentric left ventricular hypertrophy is observed. There are left ventricular segmental wall motion abnormalities present, as shown in the diagram below. The visually estimated left ventricular ejection fraction is [...] See remainder of report for additional findings. Pending Studies and Lab Data: None Discharge Conditions/Prognosis: Chest pain free Discharge to: Home Updated Allergies/ADRs: Allergies Allergen Reactions ??? Hydrochlorothiazide ??? Lisinopril Immunizations Given this Hospitalization: There is no immunization history on file for this patient. Discharge Medications: Your Medications New Medications Dose Details clopidogreL 75 mg Tab Commonly known as: Plavix Take 1 tablet by mouth daily. Start taking on: March 18, 2020 75 mg Quantity: 90 tablet Refills: 3 metoprolol succinate XL 25 mg Tablet sr Commonly known as: Toprol-XL Take 0.5 tablets by mouth daily. Start taking on: March 18, 2020 12.5 mg Quantity: 30 tablet Refills: 5 nitroGLYcerin 0.4 mg Subl Commonly known as: Nitrostat Place 1 tablet under the tongue every 5 minutes as needed for Chest pain. 0.4 mg Quantity: 20 tablet Refills: 0 Continued medications, unchanged Dose Details amLODIPine 5 mg Tab Commonly known as: Norvasc Take 1 tablet by mouth daily. 5 mg Quantity: 30 tablet Refills: 0 aspirin 81 mg Chew Take 81 mg by mouth daily. 81 mg Quantity: 30 tablet Refills: 3 atorvastatin 80 mg Tab Commonly known as: Lipitor Daily Refills: 0 ketoconazole 2 % Sham Commonly known as: NIZORAL Apply as shampoo once daily (three months supply) Quantity: 360 mL Refills: 3 losartan 25 mg Tab Commonly known as: Cozaar Take 25 mg by mouth daily. 25 mg Refills: 0 mirabegron 50 mg Tablet sr Take by mouth. Refills: 0 oxybutynin XL 5 mg Tr24 Commonly known as: Ditropan-XL Refills: 0 pimecrolimus 1 % Crea Commonly known as: ELIDEL Apply 1-2 times daily to affected facial and presternal chest sites Quantity: 30 g Refills: 5 terazosin 5 mg Cap Commonly known as: Hytrin Bedtime Refills: 0 Smoking Status at Discharge: Social History Tobacco Use Smoking Status Former Smoker ??? Packs/day: 1.00 ??? Years: 50.00 ??? Pack years: 50.00 ??? Types: Cigarettes ??? Quit date: 07/30/2015 ??? Years since quittin.6 Smokeless Tobacco Never Used Instructions Given to Patient at Discharge: There are no outpatient Patient Instructions on file for this admission. General Instructions Call your doctor if: Chest pain, dyspnea, pain or swelling in legs occurs. If you have non-emergent questions, prior to your follow-up visit please call one of the turret lathe tender on Sunday-Sunday between the hours of 8A- 5PM. Cardiology Clinic number @ [phone] If off hours contact the cardiac fellow on- call. Hospital Investment Consultant can help you. Hospital phone number [phone] Return to work: 1 week Drivin hours post catheterization Follow up Appointments: Doctor Where Phone # Date Time Tr Hendrix DO [address] [facility] / [facility] [address] 03/23/2020 9:15am Zohreh Mcduffie MD [facility] 04/02/2020 9:20am Future Appointments and Orders Future Appointments and Orders Future Appointments Provider Department Dept Phone 05/10/2020 10:20 AM Maury Duarte MD Cardiology at [facility] Arrive at: Optical Engineering Manager Area 4A [phone] 05/31/2020 10:00 AM Mustapha Lemos MD Dermatology at [place] Arrive at: [facility] [address] [phone] Future Orders Complete By Expires Referral to Cardiac Rehab [[id number] Custom] As directed Process Instructions: If no progress note charted, please enter Clinical details in comments. Scheduling Instructions: Questions: My question or request is: s/p PCI. Cardiac rehab at [facility] Discharge References/Attachments None Discussed with MD Sammie Bajwa APRN Pager [phone] 03/17/2020 documented in this encounter Discharge Instructions * Discharge Instructions* Sammie Bourne APRN - 03/17/2020 10:33 AM EST Call your doctor if: Chest pain, dyspnea, pain or swelling in legs occurs. If you have non-emergent questions, prior to your follow-up visit please call one of the turret lathe tender on Sunday-Sunday between the hours of 8A- 5PM. Cardiology Clinic number @ [phone] If off hours contact the cardiac fellow on- call. Hospital Investment Consultant can help you. [facility] phone number [phone] Return to work: 1 week Drivin hours post catheterization Follow up Appointments: Doctor Where Phone # Date Time Tr Hendrix, [address] / [facility] [address] 03/23/2020 9:15am Zohreh Mcduffie MD [facility] 04/02/2020 9:20am documented in this encounter Medications at Time of Discharge Medication Sig Dispensed Refills Start Date End Date aspirin 81 mg Tablet, Chewable Take 81 mg by mouth daily. 30 tablet 3 06/11/2019 oxybutynin XL (Ditropan-XL) 5 mg Tablet Extended Rel 24 hr 04/11/2019 polyethylene glycoL (Miralax) 17 gram/dose Powder USE DIRECTED FOR COLONOSCOPY PREP 01/30/2020 06/09/2021 clopidogreL (Plavix) 75 mg Tablet Take [...] by mouth daily. 30 tablet 04/08/2019 02/14/2021 mirabegron 50 mg Tablet Sustained Release 24 hr Take by mouth. 05/10/2020 terazosin (HYTRIN) 5 mg Capsule Bedtime 03/19/2017 06/14/2023 atorvastatin (LIPITOR) 80 mg Tablet Take 80 mg by mouth daily. 03/26/2017 02/14/2021 ketoconazole (NIZORAL) 2 % Shampoo Apply as shampoo once daily (three months supply) 360 mL 3 05/24/2017 05/31/2020 documented as of this encounter Progress Notes * Gabriela Reeder RN - 03/17/2020 12:45 PM EST Pt d/c to home per md order. Son arrived to transport patient via private vehicle Patient AOx4 hrr,lung sounds clear, no n/v sob or chest pain at time of discharge. +bs, voiding clear yellow urine. Patient ambulating independently at this time. Patient denying pain. All LDA's removed. All belongings home with patient. Prescriptions sent to pharmacy of patients choosing, all discharge instructions reviewed with patient. All questions answered. Please see flowsheet for full assessment. GABRIELA REEDER RN * Karen Almazan RN - 03/17/2020 11:29 AM EST CARE MANAGEMENT DISCHARGE NOTE Chart reviewed, care reviewed with primary team and at interdisciplinary rounds. Patient is medically ready for discharge to Home. Needs for Transition of Care: None. Transportation: son will pick him up Current DME: none DME Needed at DC: none This plan was formulated with input from patient, family and team. All are in agreement with plan. Due to current public health concerns, I have verbally reviewed Medicare Discharge Rights with patient. Patient verbalizes understanding of right to appeal this discharge if feeling not medically ready. Offered a copy of this letter. Karen Almazan RN, MSN Order Manager - Cardiology Office of Care Management Pager: [phone] Work * Maury Duarte MD - 03/17/2020 9:23 AM EST Images from the original note were not included. Inpatient Cardiology Progress Note Patient Name: Storm Nolasco Service: CASINO FLOOR RUNNER / PA Responsible Attending: Maury Duarte MD Reason for continued hospitalization: Accelerating angina S/p C Active Problems: Active Hospital Problems Diagnosis ??? Accelerating angina Resolved Hospital Problems No resolved problems to display. Interval History: No acute events overnight. S/p [facility] with PCI to LCx. FOIL OPERATOR of RCA. Chest pain free this morning. Review of Systems: Review of Systems Constitutional: Negative. Respiratory: Negative for shortness of breath. Cardiovascular: Negative for chest pain, palpitations and leg swelling. Neurological: Negative for syncope and light-headedness. All other systems reviewed and are negative. Telemetry: HR: Heart Rate: [47-52] , SB Meds: Scheduled Meds: ??? metoprolol succinate XL 12.5 mg Oral Daily ??? amLODIPine 5 mg Oral Daily ??? aspirin 81 mg Oral Daily ??? atorvastatin 80 mg Oral QPM ??? oxybutynin XL 5 mg Oral Nightly ??? terazosin 5 mg Oral Nightly ??? losartan 25 mg Oral Daily ??? clopidogreL 75 mg Oral Daily Continuous Infusions: ??? heparin (porcine) infusion 1,000 Units/hr (03/16/20 0894) PRN Meds:nitroGLYcerin, heparin (porcine) AND heparin (porcine) infusion Physical Exam: Vital Signs: Last value Range last 12 hrs Temperature Temp: 36.5 ??C (97.7 ??F) Temp: [36.4 ??C (97.5 ??F)-36.5 ??C (97.7 ??F)] Heart Rate Heart Rate: 52 Heart Rate: [47-52] Blood Pressure BP: 133/65 BP: (98-136)/(53-66) Respiratory Rate Resp: 19 Resp: [19-20] SpO2 SpO2: 94 % SpO2: [94 %-98 %] Physical Exam Constitutional: He is oriented to person, place, and time. He appears well- developed and well-nourished. HENT: Head: Normocephalic and atraumatic. Cardiovascular: Regular rhythm. Bradycardia present. Pulmonary/Chest: Effort normal and breath sounds normal. Musculoskeletal: General: No edema. Neurological: He is alert and oriented to person, place, and time. Skin: Skin is warm and dry. Nursing note and vitals reviewed. Lab Comments: Recent Labs 03/16/20 0355 03/15/20 1549 WBC 7.2 8.2 HGB 13.6* 14.4 HCT 39.8* 41.6 PLATELET 156 165 No results for input(s): INR in the last 168 hours. Recent Labs 03/17/20 0830 03/16/20 0355 NA 136 138 K 4.1 4.2 CL 105 106 CO2 21* 24 BUN 19 17 CREATININE 0.92 0.92 Recent Labs 03/16/20 0355 AST 24 ALT 20 ALKPHOS 70 BILITOT 0.7 BILIDIR 0.2 Recent Labs 03/17/20 0830 03/16/20 0355 CALCIUM 9.0 9.1 Recent Labs 03/15/20 1549 TROPONINT <0.01 Pertinent Radiographic/Diagnostic Results: Preliminary findings: LM: mild, CSA >>8 sq mm LAD: mild LCx: proximal 90% single RCA: proximal 100%, collateralized SUMMARY: 1. The left ventricular chamber size is [...] See remainder of report for additional findings. Assessment: Storm Nolasco is a 74 yo M with??HTN, HLD,??AAA and b/l common iliac artery repair in 05/2019, former smoker??who presented to [facility] with??accelerating angina in the setting of an abnormal exerciseMPI. ??Echocardiogram consistent with a mildly reduced EF to 40% and apical/anterior WMAs. ??LHC with FOIL OPERATOR of RCA and s/p PCI to LCx lesion. ?? Upon review of chart, patient noted to be in afib during his hospitalization in May 2019. ??No ECGsfrom then until now. ??Today, he is in SR. ??Will monitor telemetry and may require Zio at discharge. ?? TREATMENT PLAN:?? 1. Accelerating angina - Troponin negative at OSH, negative here - Continue ASA 81mg daily - Continue lipitor 80mg daily - Continue metoprolol XL 12.5mg daily - Loaded with plavix, continue 75mg daily - Echo completed, summary above - LHC completed, summary above ?? 2. Hypertension - Admit BP 130/61 - BP: (98-138)/(48-66) - Continue amlodipine 5mg and losartan 25mg ?? 3. HLD - Chol 105, LDL 50 - Continue high intensity statin ?? 4. BPH - Continue terazosin 5mg and oxybutynin 5mg ?? FULL CODE Discussed with MD Sammie Bajwa APRN Pager [phone] 03/17/2020 CARDIOLOGY ATTENDING NOTE Patient: Storm Nolasco Date of Service: 03/17/2020 Date of Admission: 03/15/2020 Length of Stay Hospital Day 2 days Please see the above note by??Sammie Bourne, SG??for details. I have interviewed and examined the patient independently and I concur with the assessment and plan. The case was discussed on cardiology rounds and we reviewed the plan of care with the team and patient. In addition, I certify that Gold a D- H credentialed attending provider with admitting privileges and that the patient meets or has met medical necessity to require an inpatient IPI level of care meeting a minimum of two midnights. ?? Mr. Nolasco is a 74 year old man with history of HTN, HLD, prior smoker, AAA s/p open AAA repair and repair of bilateral common iliac artery aneurysms with post-operative AF who presented with accelerating angina. Recent stress test showed EF 34% with fixed apical defect. ECG with NSR and LBBB. TTE with EF 39% with anterior/apical WMA. Coronary angiography with RCA FOIL OPERATOR and proximal LCx lesion, s/p PCI. He is now chest pain free. On GDMT including DAPT, BB, ARB. Cardiac rehab consult. Stable for discharge today. Rest per Ms. Bourne.?? Maury Duarte MD, MPH, RPVI, [facility] Pager [phone] Cardiovascular Diamond Saw OperatorCivil [place] [address] * Bella Esquivel RN - 03/16/2020 7:45 PM EST OUTCOME EVALUATION NOTE: OUTCOME SUMMARY: Pt AAOx4, AVSS, SB in 40's-50's, team aware, pt remains asymptomatic. Heparin gtt running this morning. Pt to cardiac cath lab technologist ~1400 this afternoon, intervention via R wrist, back from cardiac cath lab technologist with fluids running and TR band in place. Air removed from TR band without issue, no signs of bleeding or hematoma, pt tolerated fine. Bedside check performed w/ oncoming RN. PLAN MOVING FORWARD: D/C tomorrow INDIVIDUALIZED FALL PREVENTION INTERVENTIONS: Patient-specific fall risk factors per assessment: Assistance: Independent, SBA, 1-2 assist, FWW, gait belt, Stand & Pivot, Mechanical Lift, Bedrest w/ Q2hr turns Supervision: Independent, Eyes on, Arms reach, Hands on Surveillance: Bed locked in low position, call sagastume within reach, purposeful hourly rounding, clutter free environment, bed/chair alarm on, family at bedside Patient-specific fall prevention interventions for sensory deficits provided: /A CPG GOAL OUTCOME EVALUATION: Continue care plan as documented.\ * Maury Duarte MD - 03/16/2020 9:10 AM EST Images from the original note were not included. Inpatient Cardiology Progress Note Patient Name: Storm Nolasco Service: CASINO FLOOR RUNNER / PA Responsible Attending: Maury Duarte MD Reason for continued hospitalization: Evaluation and management of accelerating angina Awaiting cardiac catherization Active Problems: Active Hospital Problems Diagnosis ??? Accelerating angina Resolved Hospital Problems No resolved problems to display. Interval History: No acute events overnight. Trops negative. Echo with EF mildly reduced to 40% and apical/anterior WMAs. Awaiting [facility] today. Review of Systems: Review of Systems Constitutional: Negative. Respiratory: Negative for shortness of breath. Cardiovascular: Positive for chest pain (exertional). Negative for palpitations and leg swelling. Neurological: Negative for syncope and light-headedness. All other systems reviewed and are negative. Telemetry: HR: Heart Rate: [47-56] , SB Meds: Scheduled Meds: ??? amLODIPine 5 mg Oral Daily ??? aspirin 81 mg Oral Daily ??? atorvastatin 80 mg Oral QPM ??? oxybutynin XL 5 mg Oral Nightly ??? terazosin 5 mg Oral Nightly ??? losartan 25 mg Oral Daily ??? metoprolol tartrate 12.5 mg Oral Q12H RY Continuous Infusions: ??? heparin (porcine) infusion 1,000 Units/hr (03/16/20 0426) PRN Meds:heparin (porcine) AND heparin (porcine) infusion Physical Exam: Vital Signs: Last value Range last 12 hrs Temperature Temp: 36.2 ??C (97.2 ??F) Temp: [36.2 ??C (97.2 ??F)-36.3 ??C (97.3 ??F)] Heart Rate Heart Rate: (!) 48 Heart Rate: [47-56] Blood Pressure BP: 141/62 BP: (120-141)/(62-67) Respiratory Rate Resp: 17 Resp: [16-17] SpO2 SpO2: 97 % SpO2: [94 %-97 %] Physical Exam Constitutional: He is oriented to person, place, and time. He appears well- developed and well-nourished. HENT: Head: Normocephalic and atraumatic. Cardiovascular: Normal rate and regular rhythm. Pulmonary/Chest: Effort normal and breath sounds normal. Musculoskeletal: General: No edema. Neurological: He is alert and oriented to person, place, and time. Skin: Skin is warm and dry. Nursing note and vitals reviewed. Lab Comments: Recent Labs 03/16/205 03/15/20 1549 WBC 7.2 8.2 HGB 13.6* 14.4 HCT 39.8* 41.6 PLATELET 156 165 No results for input(s): INR in the last 168 hours. Recent Labs 03/16/20 0355 NA 138 K 4.2 CL 106 CO2 24 BUN 17 CREATININE 0.92 Recent Labs 03/16/20 0355 AST 24 ALT 20 ALKPHOS 70 BILITOT 0.7 BILIDIR 0.2 Recent Labs 03/16/20 0355 CALCIUM 9.1 Recent Labs 03/15/20 1549 TROPONINT <0.01 Pertinent Radiographic/Diagnostic Results: SUMMARY: ?? 1. The left ventricular chamber size is normal. Borderline concentric left ventricular hypertrophy is observed. There are left ventricular segmental wall motion abnormalities present, as shown in the diagram below. The visually estimated left ventricular ejection fraction is [...] See remainder of report for additional findings. Assessment: Storm Nolasco is a 74 yo M with HTN, HLD, AAA and b/l common iliac artery repair in 05/2019, former smoker who presented to [facility] with accelerating angina in the setting of an abnormal exercise MPI. Echocardiogram consistent with a mildly reduced EF to 40% and apical/anterior WMAs. Will plan for cardiac catheterization today. ?? Upon review of chart, patient noted to be in afib during his hospitalization in May 2019. No ECGs from then until now. Today, he is in SR. Will monitor telemetry and may require Zio at discharge. ?? TREATMENT PLAN: 1. Accelerating angina - Troponin negative at OSH, will check here - Continue ASA 81mg daily - Continue lipitor 80mg daily - Continue metoprolol 12.5mg BID - Continue heparin drip - Echo completed, summary above - [facility] today ?? 2. Hypertension - Admit BP 130/61 - BP: (120-145)/(61-67) - Continue amlodipine 5mg and losartan 25mg ?? 3. HLD - Chol 105, LDL 50 - Continue high intensity statin ?? 4. BPH - Continue terazosin 5mg and oxybutynin 5mg ?? FULL CODE Discussed with MD Sammie Bajwa APRN Pager [phone] 03/16/2020 CARDIOLOGY ATTENDING NOTE Patient: Storm Nolasco Date of Service: 03/16/2020 Date of Admission: 03/15/2020 Length of Stay Hospital Day 1 day Please see the above note by Sammie Bourne APRN for details. I have interviewed and examined the patient independently and I concur with the assessment and plan. The case was discussed on cardiology rounds and we reviewed the plan of care with the team and patient. In addition, I certify that I am a D-H credentialed attending provider with admitting privileges and that the patient meets or has met medical necessity to require an inpatient IPI level of care meeting a minimum of two midnights. ?? Mr. Nolasco is a 74 year old man with history of HTN, HLD, prior smoker, AAA s/p open AAA repair and repair of bilateral common iliac artery aneurysms with post-operative AF who presented with accelerating angina. Recent stress test showed EF 34% with fixed apical defect. ECG with NSR and LBBB. TTE with EF 39% with anterior/apical WMA. Treating with IV heparin, aspirin, BB, statin. Hold off P2Y12i until coronary anatomy defined. Coronary angiography today. Rest per Ms. Bourne. Maury Duarte MD, MPH, RPVI, [facility] Pager [phone] Cardiovascular Diamond Saw OperatorCivil [place] [address] documented in this encounter H&P Notes * Maury Duarte MD - 03/15/2020 1:20 PM EST Images from the original note were not included. Cardiology Admission H&P Patient Name: Storm Nolasco Date of : 1945 Age: 74 y.o. Hospital Admit Date: 03/15/2020 Inpatient Attending: Maury Duarte MD PCP: Tr Hendrix, Presenting Diagnosis/Chief Complaint: Accelerating exertional angina Active Problem List: Active Hospital Problems Diagnosis ??? Accelerating angina Resolved Hospital Problems No resolved problems to display. History of Present Illness: Storm Nolasco is a 74 yo M with HTN, HLD, AAA and b/l common iliac artery repair in 05/2019, former smoker who presented to [facility] with intermittent, exertional chest pressure, relieved with rest over the past few months. Initially, he attributed the pain to muscle aches and was taking tylenol for relief, but then starting thinking it may be angina. PCP sent him for an exercise nuclear stress test 2 weeks ago, which was abnormal, showing an EF 34% with a fixed apical defect, no definite ischemia, but interpretation was limited by LBBB (not new, documented after AAA repair in 05/2019). Patientwas scheduled to see Dr. Mcduffie next week, but presented to the ED today due to 5/10 chest pressure with minimal exertion, not entirely relieved with rest (1/10 at rest). CXR with no acute process. He is hemodynamically stable, EKG without acute ischemic changes, but does show frequent PVCs. First troponin negative. INR 1.0 Cr 1.11 K 4.4 Past Medical History: No past medical history on file. Surgical History/Problems: Past Surgical History: Procedure Laterality Date ??? PRO REANEURYSM/GRFT INS, ABD AORT W/VISCER N/A 06/03/2019 @REPAIR AORTIC ANEURYSM INVOLVING RENAL OR MESENTERIC VESSELS (WRVU 35.35) performed by [facility] ??? PRO REANEURYSM/GRFT INS, ILIAC Bilateral 06/03/2019 @REPAIR ILIAC ARTERY ANEURYSM (CHANCE, HYPOGASTRIC OR EIA) (WRVU 26.4) performed by [facility] at [facility] ??? PRO THROMBOENDARTECTMY ABD AORTA N/A 06/03/2019 @ENDARTERECTOMY, ABD. AORTA W OR W/O PATCH GRAFT (WRVU 27.72) performed by [facility] at [facility] ??? PRO THROMBOENDARTECTMY ILIAC 06/03/2019 @ENDARTERECTOMY, ILIAC W OR W/O PATCH GRAFT (WRVU 24.61) performed by Helio Duke [facility] at [facility] Significant Family History: No family history on file. Social History: Social History Socioeconomic History ??? Marital status: Spouse name: Not on file ??? Number of children: Not on file ??? Years of education: Not on file ??? Highest education level: Not on file Occupational History ??? Not on file Social Needs ??? Financial resource strain: Not on file ??? Food insecurity Worry: Not on file Inability: Not on file ??? Transportation needs Medical: Not on file Non-medical: Not on file Tobacco Use ??? Smoking status: Former Smoker Packs/day: 1.00 Years: 50.00 Pack years: 50.00 Types: Cigarettes Quit date: 07/30/2015 Years since quittin.6 ??? Smokeless tobacco: Never Used Substance and Sexual Activity ??? Alcohol use: Yes Alcohol/week: 14.0 standard drinks Types: 14 Glasses of wine per week ??? Drug use: Never ??? Sexual activity: Not Currently Lifestyle ??? Physical activity Days per week: Not on file Minutes per session: Not on file ??? Stress: Not on file Relationships ??? Social connections Talks on phone: Not on file Gets together: Not on file Attends adventism service: Not on file Active member of club or organization: Not on file Attends meetings of clubs or organizations: Not on file Relationship status: Not on file ??? Intimate partner violence Fear of current or ex partner: Not on file Emotionally abused: Not on file Physically abused: Not on file Forced sexual activity: Not on file Other Topics Concern ??? Not on file Social History Narrative ??? Not on file REVIEW OF SYSTEMS: Review of Systems Constitutional: Negative. Respiratory: Negative for shortness of breath. Cardiovascular: Positive for chest pain (exertional). Negative for palpitations and leg swelling. Neurological: Negative for syncope and light-headedness. All other systems reviewed and are negative. Medications: Medications Prior to Admission Medication Sig Dispense Refill Last Dose ??? aspirin 81 mg Tablet, Chewable Take 81 mg by mouth daily. 30 tablet 3 ??? oxybutynin XL (Ditropan-XL) 5 mg Tablet Extended Rel 24 hr ??? pimecrolimus (ELIDEL) 1 % Cream Apply 1-2 times daily to affected facial and presternal chest sites 30 g 5 ??? amLODIPine (NORVASC) 5 mg Tablet Take 1 tablet by mouth daily. 30 tablet 0 ??? mirabegron 50 mg Tablet Sustained Release 24 hr Take by mouth. ??? terazosin (HYTRIN) 5 mg Capsule Bedtime ??? atorvastatin (LIPITOR) 80 mg Tablet Daily ??? ketoconazole (NIZORAL) 2 % Shampoo Apply as shampoo once daily (three months supply) 360 mL 3 Allergies: Allergies Allergen Reactions ??? Hydrochlorothiazide ??? Lisinopril PHYSICAL EXAM: Last set of vital signs: BP 130/61 (BP Location (NBP): Right arm, Patient Position: Lying) Pulse 53 Temp 36.8 ??C (98.2 ??F) (Oral) Resp 16 SpO2 96% Physical Exam Vitals signs and nursing note reviewed. Constitutional: Appearance: Normal appearance. HENT: Head: Normocephalic and atraumatic. Cardiovascular: Rate and Rhythm: Normal rate and regular rhythm. Heart sounds: No murmur. Musculoskeletal: Right lower leg: No edema. Left lower leg: No edema. Skin: General: Skin is warm and dry. Neurological: General: No focal deficit present. Mental Status: He is alert and oriented to person, place, and time. Diagnostics: Exercise MPI 03/01/2020 EF 34% with stress. Global hypokinesis. Moderate sized fixed perfusion defect at the apex without evidence of ischemia. It is important to note that there is a higher false positive rate in those with LBBB who undergo stress MPI as opposed to pharmacological MPI. LABS: No results found for this or any previous visit (from the past 24 hour(s)). ASSESSMENT: Storm Nolasco is a 74 yo M with HTN, HLD, AAA and b/l common iliac artery repair in 05/2019, former smoker who presented to [facility] with accelerating angina in the setting of an abnormal exercise MPI. Will obtain an echocardiogram to assess EF and wall motion abnormalities. Will plan for cardiac catheterization tomorrow. Upon review of chart, patient noted to be in afib during his hospitalization in May 2019. No ECGs from then until now. Today, he is in SR. Will monitor telemetry and may require Zio at discharge. TREATMENT PLAN: 1. Accelerating angina - Troponin negative at OSH, will check here - Continue ASA 81mg daily - Continue lipitor 80mg daily - Start metoprolol 12.5mg BID - Start heparin drip - Echo today - [facility] tomorrow 2. Hypertension - Admit BP 130/61 - Continue amlodipine 5mg and losartan 25mg 3. HLD - Lipid panel pending - Continue high intensity statin 4. BPH - Continue terazosin 5mg and oxybutynin 5mg FULL CODE Discussed with MD Sammie Bajwa APRN Pager [phone] 03/15/2020 CARDIOLOGY ATTENDING NOTE Patient: Storm Nolasco Date of Service: 03/15/2020 Date of Admission: 03/15/2020 Length of Stay Hospital Day 0 days Please see the above note by Sammie Bourne APRN for details. I have interviewed and examined the patient independently and I concur with the assessment and plan. The case was discussed on cardiology rounds and we reviewed the plan of care with the team and patient. In addition, I certify that I am a D-H credentialed attending provider with admitting privileges and that the patient meets or has met medical necessity to require an inpatient IPI level of care meeting a minimum of two midnights. Mr. Nolasco is a 74 year old man with history of HTN, HLD, prior smoker, AAA s/p open AAA repair and repair of bilateral common iliac artery aneurysms with post-operative AF who presents with accelerating angina. Recent stress test showed EF 34% with fixed apical defect. ECG with NSR and LBBB. Given accelerating angina, will start IV heparin; hold off P2Y12 inhibitor until coronary anatomy defined due to concern of multivessel disease. GDMT with aspirin, beta-tiana, high intensity statin. TTE. Plan for coronary angiography tomorrow. Rest per Ronald Bourne. Maury Duarte MD, MPH, RPVI, [facility] Pager [phone] Cardiovascular Diamond Saw OperatorCivil [place] [address] documented in this encounter Miscellaneous Notes * Consult Note - Roberta Frost RN - 03/17/2020 10:52 AM EST Cardiac Rehabilitation Inpatient Evaluation Primary Cardiac Diagnosis: s/p PCI Cardiac Risk Factors: Smoking: history of smoking Overweight: yes Hyperlipidemia: yes Sedentary: no HTN: yes Family history: no DM: no Stress: did not discuss Patient Education: Reviewed cardiac cath findings, implications of coronary artery disease, managing angina and risk factor modification. Reviewed managing angina /use of sl nitroglycerin. Mediterranean diet guidelines briefly reviewed. Given parameters for home exercise. Phase II Referral: Participation in the outpatient cardiac rehabilitation program at [facility] was discussed. Patient agrees to a referral to this program. The referral will be sent at discharge and the patient should be contacted by the Program within 1- 2 weeks from discharge. Activity Summary: By discharge, patient will be able to perform self care, walk 5-7 minutes and go up and down stairs without signs or symptoms of ischemia. Activity Baseline Response ~8 walk HR 54 bpm 96 bpm 13 stairs BP 142/57 158/58 O2 Sat 98% RA 98% RA ECG SB SR Symptoms/Comments: no sx reported. Well tolerated. * Brief Op Note - Fitz Hauser MD - 03/16/2020 4:17 PM EST Images from the original note were not included. Preliminary Cardiac Catheterization Procedure Note: Patient Name: Storm Nolasco : [id number] MR#: [id number] Case Date: 03/16/2020 Investment Consultant: Surgeon(s) and Role: * Fitz Hauser MD - Primary * Delvin Morris DO - Fellow * Elias Berkowitz MD - Fellow * Juan Antonio German MD - Fellow Preoperative diagnosis: ?CAD Postoperative diagnosis: * CAD* Procedure(s) performed: Coronary angio [facility] Stent insertion, coronary Access: right radial A time-out was conducted prior to the start of the procedure to verify the correct patient and procedure, procedure location, and all relevant critical information. Preliminary findings: LM: mild, CSA >>8 sq mm LAD: mild LCx: proximal 90% single RCA: proximal 100%, collateralized LVEDP 14 IVUS of the left main: CSA larger than 8 Stenting performed on the proximal LCx: Full report to follow. Fitz Hauser MD * Plan of Care - Katina Shaffer RN - 03/16/2020 4:11 AM EST OUTCOME EVALUATION NOTE: OUTCOME SUMMARY: Storm Nolasco had a good night, appears to be resting between care. No acute events. No signsor symptoms of distress, denies numbness or tingling, Endorses intermittent chest pressure that is relieved with rest. Remains NPO since 2115. Remains on a heparin drip at [facility] is therapeutic x2, now tested daily with am labs. Voiding adequate amounts, spontaneously. 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 Encourage and promote good PO fluid and nutrition intake Encourage ambulation as tolerated Promote self care and independence Discharge planning INDIVIDUALIZED FALL PREVENTION INTERVENTIONS: Patient-specific fall risk factors per assessment: [current deficits]: Chest Pain with movement/ambulation, relieved when Pt lies down Assistance [level of assistance required for transfers and ambulation]: independent, non-skid shoes/slippers Supervision [direct monitoring required during toileting and ADLs]: Eyes on Surveillance [continuous indirect monitoring]: Purposeful rounding, call sagastume in reach Patient-specific fall prevention interventions for sensory deficits provided, if applicable: Yes: Glasses, Light adjusted for task/safety CPG GOAL OUTCOME EVALUATION: ongoing \ * Plan of Care - Keny Hutton RN - 03/15/2020 5:53 PM EST Problem: Patient Care Overview Goal: Plan of Care Review Outcome: Ongoing (Interventions Implemented as Appropriate) 03/15/20 1207 Coping/Psychosocial Plan Of Care Reviewed With patient Plan of Care Review Progress no change OUTCOME EVALUATION NOTE: OUTCOME SUMMARY: A+O x4. Says has intermittent chest pressure, when ambulating, but does not sustain. NSR on Tele with depressed ST. Pt in NSR. Hep @ 1000, Next UFH @ 10pm Echo done today. Given cath education packets and booklets. PLAN MOVING FORWARD: NPO @ 0000 for cath tomorrow. INDIVIDUALIZED FALL PREVENTION INTERVENTIONS: Patient-specific fall risk factors per assessment: [current deficits]: ECG wires, IVsites, Heparin drip Assistance [level of assistance required for transfers and ambulation]: SBA Supervision [direct monitoring required during toileting and ADLs]: IND Surveillance [continuous indirect monitoring]: Telemetry, call sagastume in reach, freq rounding Patient-specific fall prevention interventions for sensory deficits provided, if applicable: Yes CPG GOAL OUTCOME EVALUATION: Ongoing * Plan of Care - Sammie Bourne APRN - 03/15/2020 4:05 PM EST Images from the original note were not included. Cardiac cath Pre Procedure Note The indications, expected benefits and potential risks of heart catheterization were reviewed in detail with the patient. The potential for , heart attack, stroke, kidney failure, hemorrhage, allergic reaction, vascular complications and infection were reviewed in detail. The possibility of stenting and other percutaneous intervention with associated risk was reviewed. The possible need for emergent coronary artery bypass surgery was reviewed. After a discussion about the above, and havinganswered all questions posed, the patient was provided with a consent which was reviewed and signed. ASA: 3: Patient with severe systemic disease Mallampati: II: tonsillar pillars are blocked by the tongue Sedation Plan: moderate (conscious sedation) Assessment and Plan: Proceed with cardiac cath today, see progress note from today for further details. Sammie Bourne APRN 03/15/2020 Pager [phone] * Initial Assessments - Daylin Josue RN - 03/15/2020 2:14 PM EST Office of Care Management Assessment Medical record reviewed. Plan of care and patient status discussed with direct care RN and/or Care Team in multidisciplinary rounds. Screening: Last COVID test: Date and Time: 03/15/2020 14:14 => PENDED 74 y.o. male here for: Present on Admission: ??? Accelerating angina 03/16: pt is scheduled for cardiac cath and ? Of possible surgical procedure Patient has not been admitted to a hospital within the last 30 days. 03/15/2020: Transfer from: [facility] Last [facility] discharge: 06/10/2019: [facility]. PHONE: [phone] FAX: [phone] RN/CM spoke with VNA: Pt was discharged from all services: End of 05/2019. Patient receiving hospital care under Inpatient status. Admission order reviewed. Primary Insurance on file: MEDICARE Secondary Insurance on file: [employer] [facility] Primary care provider on file: Tr Hendrix DO [phone] Advance Directive on file and Code Status: <no information>, Attempt Cardiopulmonary Resuscitation - Inpatient Patient does not have advanced directives. Education provided and surrogacy reviewed. If AD's have not been completed pts Artur Dykes would be surrogate decision maker per [place] surrogate decision making law. Any patient receiving care at [facility] must abide by [place] law. The hierarchy for surrogate decision making is: (a) Patient???s spouse, or civil union partner or common law spouse unless there is a divorce proceeding, separation agreement, or restraining order limiting that person???s relationship with the patient. (b) Any adult son or daughter of the patient.son-Artur (c) Either parent of the patient. (d) Any adult brother or sister of the patient. (e) Any adult grandchild of the patient. (f) Any grandparent of the patient. (g) Any adult aunt, uncle, niece, or nephew of the patient. (h) A close friend of the patient. (i) The agent with financial power of trust and estates attorney or a conservator appointed in accordance with [place] 464-A. (j) The guardian of the patient???s estate. Patient???s Functional Status: Living Situation:lives in own home, indep with all needs, drives. [address] [facility] [phone] Supports : Pt is , lives alone, indep in own home, and states that he has good support with his son if needed at DC Assessment: Patient with no apparent RNCM/SW needs at this time. No housing, transportation, insurance, resources concerns identified at this time. Supports in place to achieve a safe post-hospital transition. No identified barriers to accessing necessary care and/or follow-up after discharge. Plan: Patient to d/c to home via private vehicle-family /son to drive him to home, when medically ready. saturator tender/Humane Agent will continue to follow patient???s progress and remain available if situation changes for coordination of care, psychosocial support and/or discharge planning. documented in this encounter Plan of Treatment Upcoming Encounters Date Type Department Care Team (Late st Contact Info) Description 06/20/2024 10:00 AM EST Office Visit Dermatology at [facility] [address] [facility] [place] [address] Mustapha Lemos MD [address] [place] [address] Scheduled Referrals Name Type Priority Associated Diagnoses Orde r Schedule Referral to Cardiac Rehab Outpatient Referral Routine S/P coronary artery stent placement Ordered: 03/17/2020 documented as of this encounter Procedures Procedure Name Priority Date/Time Associated Diagnosis Comments BMP W/FASTING GLUCOSE Routine 03/17/2020 8:30 AM EST HEMOGRAM Routine 03/17/2020 8:30 AM EST DIFFERENTIAL, AUTOMATED Routine 03/17/20 8:30 AM EST HC CBC,PLT & AUTO DIFF Routine 0 8:30 AM EST EKG 12-LEAD Routine 03/17/2020 7:12 AM EST Accelerating angina EKG 12-LEAD Routine 03/16/2020 4:21 PM EST Accelerating angina CARDIAC CATHETERIZATION Routine 03/16/20 4:05 PM EST EKG 12-LEAD Routine 03/16/2020 7:17 AM EST Accelerating angina HC VENIPUNCTURE STAT 03/16/2020 3:55 AM EST BMP W/FASTING GLUCOSE Routine 03/16/2020 3:55 AM EST HEMOGRAM Routine 03/16/2020 3:55 AM EST DIFFERENTIAL, AUTOMATED Routine 11/17/20 20 3:55 AM EST HC CBC,PLT & AUTO DIFF Routine 0 3:55 AM EST HC THYROID STIMULATING HORMONE, SERUM Routine 03/16/2020 3:55 AM EST HC HEMOGLOBIN A1C Routine 03/16/2020 3:5 5 AM EST HEPATIC FUNCTION PANEL Routine 0 3:55 AM EST LIPID PANEL (REFLEX DIRECT LDL) Routine 03/16/2020 3:55 AM EST HC VENIPUNCTURE STAT 03/15/2020 10:04 PM EST EKG 12-LEAD STAT 03/15/2020 4:38 PM EST Accelerating angina HC UNFRACTIONATED HEPARIN (HEP UFH) STAT 03/15/2020 3:49 PM EST HEMOGRAM Routine 03/15/2020 3:49 PM EST DIFFERENTIAL, AUTOMATED Routine 03/15/20 20 3:49 PM EST HC CBC,PLT & AUTO DIFF Routine 0 3:49 PM EST HC TROPONIN T STAT 03/15/2020 3:49 PM EST ECHO COMPLETE W CONTRAST Routine 03/15/2020 3:33 PM EST Accelerating angina RAPID COVID-19 PCR ([facility]) Routine 03/15/2020 2:14 PM EST documented in this encounter Results * Differential, Automated (03/17/2020 8:30 AM EST) Neutrophils % 76.3 % [facility] Neutr Abs (ANC) 5.37 1.70 - 6.10 x10(3)/mcL [facility] Lymphocytes % 14.4 % [facility] Lymphocytes Abs 1.0 0.9 - 3.2 x10(3)/[facility] Monocytes % 7.0 % [facility] Monocyte Abs 0.5 0.3 - 0.9 x10(3)/[facility] Eosinophils % 1.6 % [facility] Eosinophils Abs 0.1 0.0 - 0.4 x10(3)/[facility] Basophils % 0.4 % [facility] Basophils Abs 0.0 0.0 - 0.1 x10(3)/[facility] Immature Gran % 0.30 % [facility] Comment: Immature granulocytes(IG's)percentage and absolute count will include metamyelocytes, myelocytes, and promyelocytes. Blood smears from CBCs yielding IG's will be scanned manually for concordance. If this scan disagrees with the automated IG or if promyelocytes are noted, a manual differential will be performed. Melanie Gran Abs 0.02 0.00 - 0.04 x10(3)/[facility] Blood specimen (specimen) 03/17/2020 8:30 AM EST 03/17/2020 8:42 AM EST Narrative Resulting Agency Comment Spec In Lab Sammie Javier Steffen [facility] ORDERAB [facility] Performing Organization Address City/State/[facility] Co de Phone Number [facility] [place] [address] * (ABNORMAL) Hemogram (03/17/2020 8:30 AM EST) WBC 7.0 4.0 - 9.5 x10(3)/[facility] RBC 4.21(L) 4.58 - 5.54 x10(6)/[facility] LABORATORY Hemoglobin 13.7 13.7 - 16.5 gm/dL [facility] Hematocrit 39.7(L) 40.5 - 48.5 % [facility] MCV 94.3(H) 82.9 - 93.1 fL [facility] MCH 32.5(H) 27.5 - 32.1 pg [facility] MCHC 34.5 32.0 - 35.7 gm/dL [facility] Platelets 157 145 - 357 x10(3)/[facility] LABORATORY RDWSD 43.6 36.0 - 45.0 [facility] LABORATORY RDWCV 12.6 11.4 - 13.8 % [facility] MPV 10.3 7.6 - 12.9 [facility] LABORATORY nRBC % Auto 0.0 % [facility] nRBC Abs Auto 0.000 0.000 - 0.000 x10(3)/[facility] LABORATORY Blood specimen (specimen) 03/17/2020 8:30 AM EST 03/17/2020 8:42 AM EST Narrative Resulting Agency Comment Spec In Lab Sammie Bourne APRN HEMATOLOGY ORDERAB LES Performing Organization Address City/State/[facility] Co de Phone Number [facility] [place] [phone] * (ABNORMAL) BMP w/fasting Glucose (03/17/2020 8:30 AM EST) Glucose Fasting 124(H) 65 - 99 mg/dL [facility] Comment: ?Fasting* Glucose Interpretive Criteria Normal ?65-99 mg/dL Impaired Fasting glucose ?100-125 mg/dL Consistent with Diabetes Mellitus ? >or= 126 mg/dL *Fasting is defined as no caloric intake for at least 8 hours In the absence of unequivocal hyperglycemia a plasma glucose value of >or= 126 mg/dL should be repeated on a subsequent day. Diagnosis and Classification of Diabetes Mellitus, Position Statement from the [place] [employer]. ??Diabetes Care, Volume 33, Supplement 1, Apr 2009 BUN 19 10 - 20 mg/dL [facility] Creatinine 0.92 0.80 - 1.50 mg/dL [facility] Sodium 136 135 - 145 mmol/L [facility] Potassium 4.1 3.5 - 5.0 mmol/L [facility] Comment: Please note: ??Patients with WBC >100,000 may have falsely elevated Potassium levels. ??For accurate Potassium quantification in these patients send serum separator tube (gold top) for subsequent determinations. ??Contact the Clinical Chemistry Laboratory if there are any questions. Chloride 105 98 - 107 mmol/L [facility] CO2 21(L) 22 - 31 mmol/L [facility] Anion Gap 10 5 - 15 mmol/L [facility] Calcium 9.0 8.5 - 10.5 mg/dL [facility] Estimated GFR 82 >=60 mL/min/1. 73 m?? [facility] Comment: The eGFR was calculated using the CKD-EPI equation. As with all creatinine based estimates of kidney function, eGFR values calculated with the CKD-EPI equation are not accurate in patients with acute kidney failure, extremes of body mass or the acutely ill. [email or web address]/[facility] eGFR 95 >=60 mL/min/1. 73 m?? [facility] Comment: The eGFR was calculated using the CKD-EPI equation. As with all creatinine based estimates of kidney function, eGFR values calculated with the CKD-EPI equation are not accurate in patients with acute kidney failure, extremes of body mass or the acutely ill. [email or web address] Blood specimen (specimen) 03/17/2020 8:30 AM EST 03/17/2020 8:42 AM EST Narrative Resulting Agency Comment Spec In Lab Sammie Bourne APRN CHEMISTRY ORDERABL ES [facility] [place] [address] * EKG 12 Lead (03/17/2020 7:12 AM EST) Ventricular rate 49 BPM MUSE SYSTEM Atrial Rate 49 BPM MUSE SYSTEM P-R Interval 172 ms MUSE SYSTEM QRS Duration 158 ms MUSE SYSTEM Q-T Interval 514 ms MUSE SYSTEM QTC Calculated (Bezet) 464 ms MUSE SYSTEM Calculated P [place] 35 degrees MUSE SYSTEM Calculated R [place] 2 degrees MUSE SYSTEM Calculated T [place] 36 degrees MUSE SYSTEM INTERPRETATION Sinus bradycardia Left bundle branch block Abnormal ECG When compared with ECG of 16-MAR-2020 16:21, No significant change was found I personally reviewed the tracing and edited the fellows interpretation Confirmed by fellow Enrico Holloway ([id number]) on 03/17/2020 9:54:05 AM Confirmed by Rupa Monroe ([id number]) on 03/17/2020 4:46:45 PM MUSE SYSTEM 03/17/2020 7:12 AM EST 03/17/2020 4:46 PM EST Sammie Bourne APRN ECG ORDERABLES Performing Organization Address [facility] Phone Number MUSE SYSTEM * EKG 12 Lead (03/16/2020 4:21 PM EST) Ventricular rate 49 BPM MUSE SYSTEM Atrial Rate 49 BPM MUSE SYSTEM P-R Interval 186 ms MUSE SYSTEM QRS Duration 154 ms MUSE SYSTEM Q-T Interval 518 ms MUSE SYSTEM QTC Calculated (Bezet) 467 ms MUSE SYSTEM Calculated P [place] 25 degrees MUSE SYSTEM Calculated R [place] -30 degrees MUSE SYSTEM Calculated T [place] -6 degrees MUSE SYSTEM INTERPRETATION Sinus bradycardia Left axis deviation Left bundle branch block Abnormal ECG When compared with ECG of 16-MAR-2020 07:17, No significant change was found Confirmed by Rupa Monroe ([id number]) on 03/16/2020 5:16:41 PM MUSE SYSTEM 03/16/2020 4:21 PM EST 03/16/2020 5:16 PM EST Maury Duarte MD ECG ORDERABLES Performing Organization Address [facility] Co wi Phone Number MUSE SYSTEM * CARDIAC CATHETERIZATION (03/16/2020 4:05 PM EST) Anatomical Region Laterality Modality Other Narrative 03/17/2020 7:54 AM EST ?[facility] ? Cardiac Catheterization/Intervention Report ? Patient Name: Storm Nolasco. ? Procedure Date: 03/16/2020 ? A #: [id number] ? Primary Physician: Murtaza, Fitz T ? Case #: [id number] ? File Name: [id number] ? Catheterization Order Number: [id number] ? [facility] ? Final Report [place], [place] ? Patient Name: ? Storm Nolasco ? ID#: ?[id number] ? : ?1945 ? Procedure Date: ? March 16, 2020 ?Case #: ? [id number] ? Room: ? 6 ? Case Physician: ? Fitz Hauser M.D. ?Start: ?14:38 ?Fellow: ? Elias Berkowitz M.D. ?Admission: ??03/15/2020 ?Delvin Morris M.D. ?Juan Antonio German M.D. ? Referring Physician: ??Yamini Dahl M.D. ? Procedures: ?* Coronary Angiography ?* Left Heart Catheterization ?* Coronary Ultrasound ?* Coronary Stent Insertion ? History ?Storm Nolasco is a 74 year old man. He has hypertension. The ?patient's smoking status is Former. He has hypercholesterolemia managed ?with lipid therapy. The patient is status post an acute myocardial ?infarction. He has a history of CHF. The CHF is NYHA Functional Class II, ?is newly diagnosed and is classified as Systolic. He also has a ?descending thoracic aortic aneurysm. Prior to the initiation of this ?procedure, the patient was designated as ASA Class III. The [facility] clinical ?frailty scale is 5: Mildly Frail. ? Diagnostic Tests: ?Prior Coronary Angiography: ? LV ejection fraction within 6 months is 39%. ?Electrocardiography: ? EKG was assessed by ECG. EKG was Abnormal. EKG showed other ? abnormality. ?Medications Prior to Procedure: ? Aspirin, Beta Tiana, Calcium Channel Blocking Agent and Statin. ? Indications for Diagnostic Cath: ?The priority of the diagnostic procedure was Urgent. The indication for ?the cardiac cath lab technologist visit is new onset angina less than or equal to 2 months. ?Chest pain symptom assessment was: Typical Angina. ? Technique: ?A 6 SLFr sheath was inserted in the right radial artery utilizing the ?Seldinger technique. The right coronary artery was injected utilizing a ?5Fr SAIRA RADIAL catheter. A 6Fr EBU 4.0 catheter was used to inject the ?left coronary artery. Left ventricular pressure was performed with a 5Fr ?SAIRA RADIAL catheter. Coronary stent insertion was performed and the ?equipment utilized will be described in the intervention summary section. ?7,500 units of heparin were administered. A total of 100cc of Omnipaque ?were opened, 85cc of Omnipaque were administered and 15cc of Omnipaque ?were wasted. Radiation: Fluoro time was 24.8 minutes, dose area product ?was 72,600 mGYcm2 and air kerma was 1,124 mGY. See the case log for ?additional details. ?The patient received the following medications prior to and during the ?procedure: ? Unfractionated Heparin. ? Hemodynamics: ?Left Heart Pressures ? Resting: ? Syst Diast ? EDP ?a ?v ? m ?Ao 128 ?? 56 ?82 ?LV 121 ? 14 ? Coronary Angiography: ?Dominance: Right ?Left Main ? There was mild diffuse (<=25% stenosis) disease of the entire vessel ? segment of the left main artery. ??The mid segment of the left main ? had an eccentric diffuse 35% stenosis. ?Left Anterior Descending ? There was mild diffuse (<=25% stenosis) disease of the entire vessel ? segment of the left anterior descending artery (LAD). ?Left Circumflex ? There was mild diffuse (<=25% stenosis) disease of the entire vessel ? segment of the left circumflex artery (LCX). ??The proximal segment ? of the LCX had a single discrete 80% stenosis. ?Right Coronary Artery ? There was mild diffuse (<=25% stenosis) disease of the entire vessel ? segment of the right coronary artery (RCA). ??The proximal segment of ? the RCA had a single discrete total occlusion. ??Distal flow was via ? collaterals from the LAD and collaterals from the LCX. ? Intravascular Imaging/Physiology: ?Intravascular Ultrasound was performed in the proximal LCX using a 6 Fr ?EBU 4.0 guiding catheter and a 3.5 Fr [place] ??20 Mhz. ?Imaging was successful. ??Image [...] Intermediate. ? Intervention Summary: ?Left Circumflex Artery ? Proximal 80% ? Stent insertion was performed on the 80% stenosis in the ? proximal segment of the LCX. This was a de fredrick lesion. ? According to the ACC/AHA classification system, this lesion ? was a type B1 high risk lesion. Primary prevention of ? restenosis was the indication for stent insertion. This was ? the culprit lesion. A guidewire was placed across this lesion. ? Vessel flow pre intervention was ITZEL 3. Lesion length was ? 12mm. ? Stent insertion was accomplished through a 6 Fr. EBU 4.0 ? guide. ??The lesion was predilated with a 3.00mm EMERGE 12 MM ? balloon with a maximum inflation pressure of 20 atmospheres. ? A premounted 3.50 x 12 mm Resolute JULIAN (YVAN) was deployed ? with a maximum inflation pressure of 24 atmospheres. ? The final outcome was defined as successful. The residual ? stenosis following this intervention was 10%. The final ITZEL ? flow was 3. ? Vascular Access: ?Vascular Access Management: ? Mechanical Compression of the right radial artery access site was ? performed. ? Dual Antiplatelet (DAPT) Recommendations: ?Drug eluting stent (YVAN) inserted. ?P2Y12 Loading dose Clopidogrel 600 mg PO given in lab. ?Recommended anti-platelet/anti-thrombotic regimen: ?Start aspirin 81 mg daily now and continue for indefinitely. ?Start clopidogrel 75 mg daily now and continue for 12 months then stop. ?These recommendations are made at the time of the intervention. Patient ?and provider preferences or a changing clinical situation may require ?modification of this regimen. Consult [facility] Interventional Cardiology for ?questions. ?This patient has a high DAPT score and may benefit from prolonged (12-30 ?months) dual antiplatelet therapy. If the patient has completed 12 months ?of DAPT without having a major bleeding or ischemic event and the patient ?is NOT on chronic anticoagulation. This should be used for guidance in ?the overall conversation about prolonged dual antiplatelet therapy and ?not as a recommendation for or against any medical treatment. Consult ?http://tools.acc.org/DAPTriskapp/#!/content/calculator/ or [facility] ?Interventional Cardiology for questions. ? 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 ? Complications/Events: ?The patient had no complications during these procedures. ? Recommendations: ?Based upon the results of this procedure, it was recommended that medical ?therapy be considered. ?The attending physician was present for the entire procedure. ?Dr. Fitz Hauser M.D. was present during the moderate sedation ?intraservice time as documented by the sedation nurse. ??Case time = 01:19. ?Dr. Fitz Hauser M.D. performed the coronary angiography, left heart ?catheterization, IVUS # coronary and stent insertion-coronary. ? Fitz Hauser M.D. ? Electronically Signed by: Fitz Hauser M.D. ? Report Finalized: 03/17/2020 ??07:48 ? Procedure Note Fitz Hauser MD - 03/17/[address] [facility] Cardiac Catheterization/Intervention Report Patient Name: Storm Nolasco Procedure Date: 03/16/2020 A #: [id number] Primary Physician: Fitz Hauser Case #: [id number] File Name: [id number] Catheterization Order Number: [id number] [facility] [place], [place] Patient Name: Storm Nolasco ID#:[id number] :1945 Procedure Date: March 16, 2020 Case #: [id number] Room: 6 Case Physician: Fitz Hauser M.D. Start: 14:38 Fellow: Elias Berkowitz M.D. Admission:03/15/2020 Ada Coleman M.D. Referring Physician: Yamini Dahl M.D. Procedures: * Coronary Angiography * Left Heart Catheterization * Coronary Ultrasound * Coronary Stent Insertion History Storm Nolasco is a 74 year old man. He has hypertension. The patient's smoking status is Former. He has hypercholesterolemiamanaged with lipid therapy. The patient is status post an acute myocardial infarction. He has a history of CHF. The CHF is NYHA FunctionalClass II, is newly diagnosed and is classified as Systolic. He also has a descending thoracic aortic aneurysm. Prior to the initiation of this procedure, the patient was designated as ASA Class III. The CSHAclinical frailty scale is 5: Mildly Frail. Diagnostic Tests: Prior Coronary Angiography: LV ejection fraction within 6 months is 39%. Electrocardiography: EKG was assessed by ECG. EKG was Abnormal. EKG showed other abnormality. Medications Prior to Procedure: Aspirin, Beta Tiana, Calcium Channel Blocking Agent andStatin. Indications for Diagnostic Cath: The priority of the diagnostic procedure was Urgent. The indicationfor the cardiac cath lab technologist visit is new onset angina less than or equal to 2months. Chest pain symptom assessment was: Typical Angina. Technique: A 6 SLFr sheath was inserted in the right radial artery utilizingthe Seldinger technique. The right coronary artery was injectedutilizing a 5Fr SAIRA RADIAL catheter. A 6Fr EBU 4.0 catheter was used to injectthe left coronary artery. Left ventricular pressure was performed with a5Fr SAIRA RADIAL catheter. Coronary stent insertion was performed andthe equipment utilized will be described in the intervention summarysection. 7,500 units of heparin were administered. A total of 100cc ofOmnipaque were opened, 85cc of Omnipaque were administered and 15cc ofOmnipaque were wasted. Radiation: Fluoro time was 24.8 minutes, dose areaproduct was 72,600 mGYcm2 and air kerma was 1,124 mGY. See the case log for additional details. The patient received the following medications prior to and duringthe procedure: Unfractionated Heparin. Hemodynamics: Left Heart Pressures Resting: Syst Diast EDP a v m Ao 128 56 82 LV 121 14 Coronary Angiography: Dominance: Right Left Main There was mild diffuse (<=25% stenosis) disease of the entirevessel segment of the left main artery. The mid segment of the leftmain had an eccentric diffuse 35% stenosis. Left Anterior Descending There was mild diffuse (<=25% stenosis) disease of the entirevessel segment of the left anterior descending artery (LAD). Left Circumflex There was mild diffuse (<=25% stenosis) disease of the entirevessel segment of the left circumflex artery (LCX). The proximalsegment of the LCX had a single discrete 80% stenosis. Right Coronary Artery There was mild diffuse (<=25% stenosis) disease of the entirevessel segment of the right coronary artery (RCA). The proximalsegment of the RCA had a single discrete total occlusion. Distal flow wasvia collaterals from the LAD and collaterals from the LCX. Intravascular Imaging/Physiology: Intravascular Ultrasound was performed in the proximal LCX using a 6Fr EBU 4.0 guiding catheter and a 3.[address] [place] 20 Mhz. Imaging was successful. Image quality was good. The proximal LCXshowed mild diffuse atherosclerotic plaque with no significantcalcification. Indication for Intervention: Coronary intervention was indicated for treatment of a criticallesion post a myocardial infarction. The priority for the procedure wasUrgent. The NCDR indication for the procedure was New Onset Angina <=2months. LVEF within one week was 55%. Syntax Score was Intermediate. Intervention Summary: Left Circumflex Artery Proximal 80% Stent insertion was performed on the 80% stenosis in the proximal segment of the LCX. This was a de fredrick lesion. According to the ACC/AHA classification system, thislesion was a type B1 high risk lesion. Primary prevention of restenosis was the indication for stent insertion. Thiswas the culprit lesion. A guidewire was placed across thislesion. Vessel flow pre intervention was ITZEL 3. Lesion lengthwas 12mm. Stent insertion was accomplished through a 6 Fr. EBU 4.0 guide. The lesion was predilated with a 3.00mm EMERGE 12MM balloon with a maximum inflation pressure of 20atmospheres. A premounted 3.50 x 12 mm Resolute JULIAN (YVAN) wasdeployed with a maximum inflation pressure of 24 atmospheres. The final outcome was defined as successful. The residual stenosis following this intervention was 10%. The finalTIMI flow was 3. Vascular Access: Vascular Access Management: Mechanical Compression of the right radial artery access sitewas performed. Dual Antiplatelet (DAPT) Recommendations: Drug eluting stent (YVAN) inserted. P2Y12 Loading dose Clopidogrel 600 mg PO given in lab. Recommended anti-platelet/anti-thrombotic regimen: Start aspirin 81 mg daily now and continue for indefinitely. Start clopidogrel 75 mg daily now and continue for 12 months thenstop. These recommendations are made at the time of the intervention.Patient and provider preferences or a changing clinical situation mayrequire modification of this regimen. Consult [facility] Interventional Cardiologyfor questions. This patient has a high DAPT score and may benefit from prolonged(12-30 months) dual antiplatelet therapy. If the patient has completed 12months of DAPT without having a major bleeding or ischemic event and thepatient is NOT on chronic anticoagulation. This should be used for guidancein the overall conversation about prolonged dual antiplatelet therapyand not as a recommendation for or against any medical treatment.Consult http://tools.acc.org/DAPTriskapp/#!/content/calculator/ or [facility] Interventional Cardiology for questions. 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 Complications/Events: The patient had no complications during these procedures. Recommendations: Based upon the results of this procedure, it was recommended thatmedical therapy be considered. The attending physician was present for the entire procedure. Dr. Fitz Hauser M.D. was present during the moderate sedation intraservice time as documented by the sedation nurse. Case time =01:19. Dr. Fitz Hauser M.D. performed the coronary angiography, leftheart catheterization, IVUS # coronary and stent insertion-coronary. Fitz Hauser M.D. Electronically Signed by: Fitz Hauser M.D. Report Finalized: 03/17/2020 07:48 Fitz Hauser MD CARDIAC CATH ORDERAB LES * EKG 12 Lead (03/16/2020 7:17 AM EST) Ventricular rate 47 BPM MUSE SYSTEM Atrial Rate 47 BPM MUSE SYSTEM P-R Interval 180 ms MUSE SYSTEM QRS Duration 156 ms MUSE SYSTEM Q-T Interval 506 ms MUSE SYSTEM QTC Calculated (Bezet) 447 ms MUSE SYSTEM Calculated P [place] 30 degrees MUSE SYSTEM Calculated R [place] -8 degrees MUSE SYSTEM Calculated T [place] -41 degrees MUSE SYSTEM INTERPRETATION Sinus bradycardia Left bundle branch block Nonspecific T wave abnormality Abnormal ECG When compared with ECG of 15-MAR-2020 16:38, No significant change was found I personally reviewed the tracing and edited the fellows interpretation Confirmed by fellow Enrico Holloway ([id number]) on 03/16/2020 3:38:41 PM Confirmed by Rupa Monroe ([id number]) on 03/16/2020 5:37:00 PM MUSE SYSTEM 03/16/2020 7:17 AM EST 03/16/2020 5:37 PM EST Sammie Bourne [employer] ECG ORDERABLES MUSE SYSTEM * Differential, Automated (03/16/2020 3:55 AM EST) Neutrophils % 66.1 % [facility] Neutr Abs (ANC) 4.77 1.70 - 6.10 x10(3)/[facility] LABORATORY Lymphocytes % 22.3 % [facility] Lymphocytes Abs 1.6 0.9 - 3.2 x10(3)/[facility] LABORATORY Monocytes % 8.2 % [facility] Monocyte Abs 0.6 0.3 - 0.9 x10(3)/[facility] LABORATORY Eosinophils % 2.5 % [facility] Eosinophils Abs 0.2 0.0 - 0.4 x10(3)/[facility] LABORATORY Basophils % 0.8 % [facility] Basophils Abs 0.1 0.0 - 0.1 x10(3)/[facility] LABORATORY Immature Gran % 0.10 % [facility] Comment: Immature granulocytes(IG's)percentage and absolute count will include metamyelocytes, myelocytes, and promyelocytes. Blood smears from CBCs yielding IG's will be scanned manually for concordance. If this scan disagrees with the automated IG or if promyelocytes are noted, a manual differential will be performed. Melanie Gran Abs 0.01 0.00 - 0.04 x10(3)/[facility] LABORATORY Blood specimen (specimen) 03/16/2020 3:55 AM EST 03/16/2020 4:11 AM EST Narrative Resulting Agency Comment Spec In Lab Sammie Bourne [employer] HEMATOLOGY ORDERAB LES Performing Organization Address City/[facility] Co de Phone Number [facility] [place] [address] * (ABNORMAL) Hemogram (03/16/2020 3:55 AM EST) WBC 7.2 4.0 - 9.5 x10(3)/[facility]OR[facility] RBC 4.24(L) 4.58 - 5.54 x10(6)/[facility]ORATORY Hemoglobin 13.6(L) 13.7 - 16.5 gm/dL [facility] Hematocrit 39.8(L) 40.5 - 48.5 % [facility] MCV 93.9(H) 82.9 - 93.1 [facility]ORATORY MCH 32.1 27.5 - 32.1 pg [facility] MCHC 34.2 32.0 - 35.7 gm/dL [facility] Platelets 156 145 - 357 x10(3)/[facility] LABORATORY RDWSD 43.7 36.0 - 45.0 [facility]ORY RDWCV 12.7 11.4 - 13.8 % [facility] MPV 10.3 7.6 - 12.9 [facility] nRBC % Auto 0.0 % [facility] nRBC Abs Auto 0.000 0.000 - 0.000 x10(3)/[facility] LABORATORY Blood specimen (specimen) 03/16/2020 3:55 AM EST 03/16/2020 4:11 AM EST Narrative Resulting Agency Comment Spec In Lab Sammie Bourne [employer] HEMATOLOGY ORDERAB LES [facility] [place] [address] * BMP w/fasting Glucose (03/16/2020 3:55 AM EST) Glucose Fasting 97 65 - 99 mg/dL [facility] Comment: ?Fasting* Glucose Interpretive Criteria Normal ?65-99 mg/dL Impaired Fasting glucose ?100-125 mg/dL Consistent with Diabetes Mellitus ? >or= 126 mg/dL *Fasting is defined as no caloric intake for at least 8 hours In the absence of unequivocal hyperglycemia a plasma glucose value of >or= 126 mg/dL should be repeated on a subsequent day. Diagnosis and Classification of Diabetes Mellitus, Position Statement from the [place] [employer]. ??Diabetes Care, Volume 33, Supplement 1, Apr 2009 BUN 17 10 - 20 mg/dL [facility] Creatinine 0.92 0.80 - 1.50 mg/dL [facility] Sodium 138 135 - 145 mmol/L [facility] Potassium 4.2 3.5 - 5.0 mmol/L [facility] Comment: Please note: ??Patients with WBC >100,000 may have falsely elevated Potassium levels. ??For accurate Potassium quantification in these patients send serum separator tube (gold top) for subsequent determinations. ??Contact the Clinical Chemistry Laboratory if there are any questions. Chloride 106 98 - 107 mmol/L [facility] CO2 24 22 - 31 mmol/L [facility] Anion Gap 8 5 - 15 mmol/L [facility] Calcium 9.1 8.5 - 10.5 mg/dL [facility] Estimated GFR 82 >=60 mL/min/1. 73 m?? [facility] Comment: The eGFR was calculated using the CKD-EPI equation. As with all creatinine based estimates of kidney function, eGFR values calculated with the CKD-EPI equation are not accurate in patients with acute kidney failure, extremes of body mass or the acutely ill. [email or web address] eGFR 95 >=60 mL/min/1. 73 m?? [facility] Comment: The eGFR was calculated using the CKD-EPI equation. As with all creatinine based estimates of kidney function, eGFR values calculated with the CKD-EPI equation are not accurate in patients with acute kidney failure, extremes of body mass or the acutely ill. [email or web address]/[facility] Blood specimen (specimen) 03/16/2020 3:55 AM EST 03/16/2020 4:11 AM EST Narrative Resulting Agency Comment Spec In Lab Sammie Bourne APRN CHEMISTRY ORDERABL ES [facility] [place] [address] * Heparin (unfractionated) Level (03/16/2020 3:55 AM EST) Heparin UFH Level 0.35 IU/mL [facility] Comment: Guidelines for therapeutic unfractionated heparin levels are summarized below. Heparin (Anti-Xa) levels should be determined in a plasma sample that has been drawn 6 hours after a dose change i.e., steady-state has been reached. DRUG ?Dosing Schedule ? Target Peak Steady-State ?Heparin (Anti-Xa) Levels (Units/mL) Unfractionated ?Continuous infusion ?0.3-0.7 Heparin ?0.3-0.6 for some neurology indications Blood specimen (specimen) 03/16/2020 3:55 AM EST 03/16/2020 4:11 AM EST Narrative Resulting Agency Comment Spec In Lab Sammie E Steffen [employer] HEMATOLOGY ORDERAB LES Performing Organization Address [facility] Co de Phone Number [facility] [place] [address] * TSH (03/16/2020 3:55 AM EST) TSH 3.13 0.27 - 4.20 mcIU/mL [facility] Blood specimen (specimen) 03/16/2020 3:55 AM EST 03/16/2020 4:11 AM EST Narrative Resulting Agency Comment Spec In Lab Sammie Javier Steffen [employer] CHEMISTRY ORDERABL ES Performing Organization Address [facility] Phone Number [facility] [place] [address] * Hepatic Function Panel (03/16/2020 3:55 AM EST) Total Protein 6.4 6.1 - 8.0 gm/dL [facility] Albumin 4.0 3.2 - 5.2 gm/dL [facility] AST 24 0 - 39 unit/L [facility] ALT 20 0 - 55 unit/L [facility] Alk Phos 70 40 - 130 unit/L [facility] Total Bilirubin 0.7 0.2 - 1.3 mg/dL [facility] Bili, Direct 0.2 0.0 - 0.3 mg/dL [facility] Blood specimen (specimen) 03/16/2020 3:55 AM EST 03/16/2020 4:11 AM EST Narrative Resulting Agency Comment Spec In Lab Sammie E Steffen [employer] CHEMISTRY ORDERABL ES Performing Organization Address [facility] Co de Phone Number [facility] [place] [address] * Hemoglobin A1c (03/16/2020 3:55 AM EST) Hemoglobin A1C 5.2 4.3 - 5.6 % [facility] Comment: Reference Range: 4.3 - 5.6% 5.7 - 6.4% - Increased Risk of Developing Diabetes Mellitus >= 6.5% - Consistent with diagnosis of Diabetes Mellitus In the absence of hyperglycemia (i.e. plasma glucose > 200 mg/dL) or classic symptoms of hyperglycemia a repeat measurement of HbA1c should be performed on a separate sample to confirm the diagnosis. Diagnosis and Classification of Diabetes Mellitus, Diabetes Care 2013; 36: Suppl. 1, S67-74 Est Avg Gluc See note mg/dL [facility] Comment: Estimated Average Glucose not appropriate for patients over 70 years of age. eAG equivalents for HbA1c percentages: HbA1c(%) ?eAG(mg/dL) 6.0 ?126 6.5 ?140 7.0 ?154 7.5 ?169 8.0 ?183 8.5 ?197 9.0 ?212 9.5 ?226 10.0 ? 240 Limitations: The eAG calculation has not been validated on women, individuals below 18 years old and above 70 years old, and individuals with hemoglobinopathies. Additional resources are available on the ADA website. Hossein PHAN, Julia J, Melissa R, et al. ??Translating the A1C assay into estimated average glucose values. ??Diabetes Care 2008:31(8):5405-1763. Blood specimen (specimen) 03/16/2020 3:55 AM EST 03/16/2020 4:11 AM EST Narrative Resulting Agency Comment Spec In Lab Sammie Bourne [employer] CHEMISTRY ORDERABL ES [facility] [place] [address] * Lipid Panel (Reflex Direct LDL) (03/16/2020 3:55 AM EST) Chol, Total 105 mg/dL [facility] Comment: Lower Risk: <200 mg/dL Average Risk: 200-239 mg/dL Higher Risk: >vg=682 mg/dL Triglycerides 93 mg/dL [facility] Comment: Average Risk/Lower Risk: <150 mg/dL Borderline High Risk: 150-199 mg/dL High Risk: 200-499 mg/dL Very High Risk: >kj=957 mg/dL HDL 36 mg/dL [facility] Comment: Males: ?? Higher Risk: <40 mg/dL Females: ?? HIgher Risk: <50 mg/dL LDL Cholesterol 50 mg/dL [facility] Comment: Lowest Risk: <100 mg/dL Lower Risk: 100-129 mg/dL Borderline High Risk: 130-159 mg/dL High Risk: 160-189 mg/dL Very High Risk: >va=924 mg/dL Chol/HDL Ratio 2.9 ratio [facility] Lipid Interpretation See Note [facility] Comment: Lipid management should be guided by a patient? s ASCVD risk, goals and preferences. ACC/AHA Guidelines recommend high intensity statin if clinical ASCVD or LDL greater than or equal to 190 mg/dL. http://[email or web address]/KIG-DCR-Czeizexlq Adults aged 40-75 with LDL 70-189 mg/dL should have their 10 year ASCVD risk estimated with the ACC/AHA ASCVD risk legal contracts specialist http://tools.acc.org/FPIAZ-Ftzg-Henbaettr/ Statin should be discussed if risk greater than or equal to 7.5% in non-diabetics. With diabetes, moderate intensity statin is recommended if risk less than 7.5%, high intensity if risk greater than or equal to 7.5%. Annual lipid monitoring on statins is not necessary. Evaluate secondary causes of Triglycerides greater than 500 mg/dL or LDL greater than 190 mg/dL: See table 6 of ACC/AHA Guideline. Lifestyle modification is a critical component of ASCVD risk reduction. Blood specimen (specimen) 03/16/2020 3:55 AM EST 03/16/2020 4:11 AM EST Narrative Resulting Agency Comment Spec In Lab Sammie E Steffen [employer] CHEMISTRY ORDERABL ES Performing Organization Address [facility] de Phone Number [facility] [place] [address] * Heparin (unfractionated) Level (03/15/2020 10:04 PM EST) Heparin UFH Level 0.27 IU/mL [facility] Comment: Guidelines for therapeutic unfractionated heparin levels are summarized below. Heparin (Anti-Xa) levels should be determined in a plasma sample that has been drawn 6 hours after a dose change i.e., steady-state has been reached. DRUG ?Dosing Schedule ? Target Peak Steady-State ?Heparin (Anti-Xa) Levels (Units/mL) Unfractionated ?Continuous infusion ?0.3-0.7 Heparin ?0.3-0.6 for some neurology indications Blood specimen (specimen) 03/15/2020 10:04 PM EST 03/15/2020 10:11 PM EST Narrative Resulting Agency Comment Spec In Lab Sammie Bourne [employer] HEMATOLOGY ORDERAB LES Performing Organization Address [facility] Co de Phone Number [facility] [place] [address] * EKG 12 Lead (03/15/2020 4:38 PM EST) Ventricular rate 59 BPM MUSE SYSTEM Atrial Rate 59 BPM MUSE SYSTEM P-R Interval 174 ms MUSE SYSTEM QRS Duration 152 ms MUSE SYSTEM Q-T Interval 476 ms MUSE SYSTEM QTC Calculated (Bezet) 471 ms MUSE SYSTEM Calculated P [place] 37 degrees MUSE SYSTEM Calculated R [place] -15 degrees MUSE SYSTEM Calculated T [place] 38 degrees MUSE SYSTEM INTERPRETATION Sinus bradycardia with sinus arrhythmia Left bundle branch block Abnormal ECG When compared with ECG of 06-JUN-2019 03:57, Sinus rhythm has replaced Atrial fibrillation Vent. rate has decreased BY ??79 BPM Confirmed by Rupa Monroe ([id number]) on 03/15/2020 6:05:11 PM MUSE SYSTEM 03/15/2020 4:38 PM EST 03/15/2020 6:05 PM EST Sammie E Steffen SG ECG ORDERABLES MUSE SYSTEM * Differential, Automated (03/15/2020 3:49 PM EST) Neutrophils % 70.6 % [facility] Neutr Abs (ANC) 5.75 1.70 - 6.10 x10(3)/[facility] Lymphocytes % 18.9 % [facility] Lymphocytes Abs 1.5 0.9 - 3.2 x10(3)/[facility] Monocytes % 7.5 % [facility] Monocyte Abs 0.6 0.3 - 0.9 x10(3)/[facility] Eosinophils % 2.3 % [facility] Eosinophils Abs 0.2 0.0 - 0.4 x10(3)/[facility] Basophils % 0.5 % [facility] Basophils Abs 0.0 0.0 - 0.1 x10(3)/[facility] Immature Gran % 0.20 % [facility] Comment: Immature granulocytes(IG's)percentage and absolute count will include metamyelocytes, myelocytes, and promyelocytes. Blood smears from CBCs yielding IG's will be scanned manually for concordance. If this scan disagrees with the automated IG or if promyelocytes are noted, a manual differential will be performed. Melanie Gran Abs 0.02 0.00 - 0.04 x10(3)/[facility] Blood specimen (specimen) 03/15/2020 3:49 PM EST 03/15/2020 4:14 PM EST Narrative Resulting Agency Comment Spec In Lab Sammie Javier GraysonSteffengregory [employer]RT HEMATOLOGY ORDERAB LES [facility] [place] [address] * (ABNORMAL) Hemogram (03/15/2020 3:49 PM EST) WBC 8.2 4.0 - 9.5 x10(3)/[facility] RBC 4.44(L) 4.58 - 5.54 x10(6)/[facility] Hemoglobin 14.4 13.7 - 16.5 gm/dL [facility] Hematocrit 41.6 40.5 - 48.5 % [facility] MCV 93.7(H) 82.9 - 93.1 fL [facility] MCH 32.4(H) 27.5 - 32.1 pg [facility] MCHC 34.6 32.0 - 35.7 gm/dL [facility] Platelets 165 145 - 357 x10(3)/[facility]ATORY RDWSD 43.4 36.0 - 45.0 [facility]ORY RDWCV 12.6 11.4 - 13.8 % [facility] MPV 10.3 7.6 - 12.9 [facility] LAB[facility]ATORY nRBC % Auto 0.0 % [facility] nRBC Abs Auto 0.000 0.000 - 0.000 x10(3)/[facility] Blood specimen (specimen) 03/15/2020 3:49 PM EST 03/15/2020 4:14 PM EST Narrative Resulting Agency Comment Spec In Lab Sammie E Steffen [employer] HEMATOLOGY ORDERAB LES Performing Organization Address [facility] Co de Phone Number [facility] [place] [address] * Troponin (03/15/2020 3:49 PM EST) Troponin-T <0.01 0.00 - 0.00 ng/mL [facility] Comment: The 99th percentile for Troponin T is less than 0.01 ng/mL, any detectable cTnT concentration using this assay should be considered elevated. According to the third universal definition of myocardial infarction the following criteria with a clinical presentation consistent with acute myocardial ischemia meets the diagnosis for a myocardial infarction (ME). Detection of a rise and/or fall of cTnT, with at least one value greater than the 99th percentile (> or = 0.01) and with at least one of the following ?? Symptoms of ischemia ?? New or presumed new significant SA-sqafkxm-U wave (ST-T) changes or new left bundle branch block (LBBB) ?? Development of pathologic Q waves in the ECG ?? Imaging evidence of new loss of viable myocardium or new regional wall motion abnormality ?? Identification of an intracoronary thrombus by angiography or autopsy Samples for cTnT testing should be obtained serially upon first assessment and again 3 to 6 hours later. If the clinical suspicion is high and previous samples have been negative an additional sample may be indicated. Reference: Third [place] Definition of Myocardial Infarction. Journal of the [place] College [employer] 2012;60:1581-98 Blood specimen (specimen) 03/15/2020 3:49 PM EST 03/15/2020 4:14 PM EST Narrative Resulting Agency Comment Spec In Lab Sammie Javier Steffen [employer] CHEMISTRY ORDERABL ES Performing Organization Address [facility]/ZIP Co de Phone Number [facility] [place] [address] * Heparin (unfractionated) Level (03/15/2020 3:49 PM EST) Heparin UFH Level <0.04 IU/mL [facility] Comment: Guidelines for therapeutic unfractionated heparin levels are summarized below. Heparin (Anti-Xa) levels should be determined in a plasma sample that has been drawn 6 hours after a dose change i.e., steady-state has been reached. DRUG ?Dosing Schedule ? Target Peak Steady-State ?Heparin (Anti-Xa) Levels (Units/mL) Unfractionated ?Continuous infusion ?0.3-0.7 Heparin ?0.3-0.6 for some neurology indications Blood specimen (specimen) 03/15/2020 3:49 PM EST 03/15/2020 4:14 PM EST Narrative Resulting Agency Comment Spec In Lab Sammie Bourne [employer] HEMATOLOGY ORDERAB LES Performing Organization Address City/State/[facility] Co de Phone Number [facility] [place] [address] * ECHO COMPLETE W CONTRAST (03/15/2020 3:33 PM EST) EF 40 HEARTLAB SYSTEM Anatomical Region Laterality Modality Other 03/15/2020 Narrative 03/15/2020 4:18 PM EST Procedure: ?Transthoracic Echocardiogram Patient: ?ELISE Cruz ?? (Age): 1945(74y) Med Rec#: ? [id number] ?Sex: ?M ? [facility] ? [facility] ?Ht / Wt: ??175(cm)/91(kg) Pt. Loc: ?Adult Floor ? BSA: ?2.07 Study Date: ?? 03/15/2020 ?Pt. Type: Inpatient Tape: ? Referring: GRISELDA Reading: Valdemar Santiago ([id number]) Hearing Aid Assembly Supervisor: Martin Matthew [facility] Diagnosis: *Unstable angina (I20.0) BP: ? 130/61 SUMMARY: 1. The left ventricular chamber size is [...] See remainder of report for additional findings. Findings ? : Study Quality: ? Technically limited Left Ventricle: ? The left ventricular chamber size is normal. ?Borderline concentric left ventricular hypertrophy is observed. ?There is no evidence of LVOT obstruction. ?No ventricular septal defect is visualized. ?Global left ventricular systolic function is moderately reduced. ?The visually estimated left ventricular ejection fraction is 40%. ?The quantitative left ventricular ejection fraction by biplane Chen's method is 39%. ?There are left ventricular segmental wall motion abnormalities present, as shown in the diagram below. ?There is a left ventricular septal wall motion abnormality observed, possibly due to the presence of a left bundle branch block. ?Left ventricular diastolic function is abnormal. ?The left ventricular diastolic filling pattern is consistent with impaired LV relaxation. ?Doppler assessment is consistent with elevated left sided filling pressure. ?The ??mid anteroseptal, mid anterior, mid anterolateral, apical septal, apical anterior, and ??apical lateral wall segments are hypokinetic (score 2). ?Overall wallmotion score index is ??1.38 Left Atrium: ? The left atrium is mildly dilated.40.6 ml/m2 Right Ventricle: ? The right ventricle is normal in size. ?Right ventricular global systolic function is normal. ?Pulmonary artery hypertension could not be assessed due to inadequate tricuspid regurgitation jet. Right Atrium: ? The right atrium appears normal. Aortic Valve: ? The aortic valve is [...] present. Pulmonic Valve: ? The pulmonic valve is not well visualized. ?The pulmonic valve is probably normal. ?There is trace pulmonic regurgitation present. Pericardium: ? The pericardium appears normal and there is no evidence of a pericardial effusion. Aorta: ? There is moderate dilatation of the aortic root.4.3 cm ?The ascending aorta is normal in size. Pulmonary Artery: ? The main pulmonary artery is not well visualized. Venous: ? The inferior vena cava is poorly visualized. Misc: ? Two-dimensional echo, spectral Doppler and color Doppler performed. ?Definity contrast (one 1.5 ml vial)was used to enhance endocardial definition. Excess contrast was discarded. Chambers 2D ?Value ?Units (Range) ? IVSd (2D) ? 1 ?cm ? LVPWd (2D) ?1.2 ?cm ? IVS:LVPW ratio (2D) 0.83 ? ratio ? RWT (2D) ?0.4 ?ratio ? RWT PW (2D) ? 0.44 ? ratio ? LVIDd (2D) ?5.5 ?cm ? LVIDs (2D) ?4.4 ?cm ? LVIDd (2D) index ?2.66 ? cm/m2 ? LVIDs (2D) index ?2.13 ? cm/m2 ? LV FS (2D) ?20 ? % ? EF Teichholz (2D) ?? 40.52 ?% ? Ao root diameter (2D4.3 ?cm (2.1 - 3.6) ? Ascending Ao ?3.5 ?cm (2 - 3.5) ? Volumes/Mass ?Value ?Units (Range) ? LA Area 4 CH ?24 ? cm2 (<21) ? RA AREA 4CH ? 16 ? cm2 ? LA ESV BP (MOD) inde40.7 ? ml/m2 ? LV ESV SP 4CH (MOD) 123 ?ml ? LV ESV SP 2CH (MOD) 97.5 ? ml ? LV EDV BP ? 186 ?ml ? LV ESV BP ? 113 ?ml ? LV EDV BP index ? 90.02 ?ml/m2 ? LV ESV BP index ? 54.69 ?ml/m2 ? BP EF (MOD) ? 39.25 ?% ? LV mass (2D) ?242.01 ? g ? LV mass (2D) index ??117.13 ? g/m2 ? Diastolic/Systolic Function ?Value ?Units (Range) ? MV E-wave Vmax ?0.57 ? m/sec ? MV deceleration [id number] ?msec ? MV A-wave Vmax ?0.9 ?m/sec ? MV E:A ratio ?0.64 ? ratio ? LV septal e' Vmax ?? 0.04 ? m/sec ? LV lateral e' Vmax ??0.08 ? m/sec ? LV average e' Vmax ??0.06 ? m/sec ? LV E:e' septal ratio14.25 ?ratio ? LV E:e' lateral rati7.13 ? ratio ? LV average E:e' rati9.5 ?ratio ? Wall Motion: Segment Name ?Rest ? Base-Anteroseptal ?? Normal ? Base-Anterior ? Normal ? Base-Anterolateral ??Normal ? Base-Posterolateral Normal ? Base-Inferior ? Normal ? Base-Inferoseptal ?? Normal ? Mid-Anteroseptal ?Hypokinetic ? Mid-Anterior ?Hypokinetic ? Mid-Anterolateral ?? Hypokinetic ? Mid-Posterolateral ??Normal ? Mid-Inferior ?Normal ? Mid-Inferoseptal ?Normal ? [place]-Septal ? Hypokinetic ? [place]-Anterior ? Hypokinetic ? [place]-Lateral ?Hypokinetic ? [place]-Inferior ? Normal ? [place]-Tip ?Hypokinetic ? This report has been electronically signed by: Valdemar Santiago MD ? 03/15/2020 16:17:44 Images reviewed and interpretation verified [facility] Procedure Note Valdemar Santiago MD - 03/15/2020 Procedure: Transthoracic Echocardiogram Patient: ELISE PAGE(Age): 1945(74y) Med Rec#: [id number] Sex: M [facility] Loc[facility] Ht / Wt: 175(cm)/91(kg) Pt. Loc: Adult Floor BSA: 2.07 Study Date: 03/15/2020 Pt. Type: Inpatient Tape: Referring: KYLEAALIYAH Reading: Valdemar Santiago ([id number]) Hearing Aid Assembly Supervisor: Martin Matthew RDCS Diagnosis: *Unstable angina (I20.0) BP: 130/61 SUMMARY: 1. The left ventricular chamber size is normal. Borderline concentric left ventricular hypertrophy is observed. There are left ventricular segmental wall motion abnormalities present, as shown in the diagram below. The visually estimated left ventricular ejection fraction is [...] See remainder of report for additional findings. Findings : Study Quality: Technically limited Left Ventricle: The left ventricular chamber size is normal. Borderline concentric left ventricular hypertrophy is observed. There is no evidence of LVOT obstruction. No ventricular septal defect is visualized. Global left ventricular systolic function is moderately reduced. The visually estimated left ventricular ejection fraction is 40%. The quantitative left ventricular ejection fraction by biplane Chen's method is 39%. There are left ventricular segmental wall motion abnormalities present, as shown in the diagram below. There is a left ventricular septal wall motion abnormality observed, possibly due to the presence of a left bundle branch block. Left ventricular diastolic function is abnormal. The left ventricular diastolic filling pattern is consistent with impaired LV relaxation. Doppler assessment is consistent with elevated left sided filling pressure. The mid anteroseptal, mid anterior, mid anterolateral, apical septal, apical anterior, and apical lateral wall segments are hypokinetic (score 2). Overall wallmotion score index is 1.38 Left Atrium: The left atrium is mildly dilated.40.6 ml/m2 Right Ventricle: The right ventricle is normal in size. Right ventricular global systolic function is normal. Pulmonary artery hypertension could not be assessed due to inadequate tricuspid regurgitation jet. Right Atrium: The right atrium appears normal. Aortic Valve: The aortic valve is tricuspid. [...] regurgitation present. Pulmonic Valve: The pulmonic valve is not well visualized. The pulmonic valve is probably normal. There is trace pulmonic regurgitation present. Pericardium: The pericardium appears normal and there is no evidence of a pericardial effusion. Aorta: There is moderate dilatation of the aortic root.4.3 cm The ascending aorta is normal in size. Pulmonary Artery: The main pulmonary artery is not well visualized. Venous: The inferior vena cava is poorly visualized. Misc: Two-dimensional echo, spectral Doppler and color Doppler performed. Definity contrast (one 1.5 ml vial)was used to enhance endocardial definition. Excess contrast was discarded. Chambers 2D Value Units (Range) IVSd (2D) 1 cm LVPWd (2D) 1.2 cm IVS:LVPW ratio (2D) 0.83 ratio RWT (2D) 0.4 ratio RWT PW (2D) 0.44 ratio LVIDd (2D) 5.5 cm LVIDs (2D) 4.4 cm LVIDd (2D) index 2.66 cm/m2 LVIDs (2D) index 2.13 cm/m2 LV FS (2D) 20 % EF Teichholz (2D) 40.52 % Ao root diameter (2D4.3 cm (2.1 - 3.6) Ascending Ao 3.5 cm (2 - 3.5) Volumes/Mass Value Units (Range) LA Area 4 CH 24 cm2 (<21) RA AREA 4CH 16 cm2 LA ESV BP (MOD) inde40.7 ml/m2 LV ESV SP 4CH (MOD) 123 ml LV ESV SP 2CH (MOD) 97.5 ml LV EDV BP 186 ml LV ESV BP 113 ml LV EDV BP index 90.02 ml/m2 LV ESV BP index 54.69 ml/m2 BP EF (MOD) 39.25 % LV mass (2D) 242.01 g LV mass (2D) index 117.13 g/m2 Diastolic/Systolic Function Value Units (Range) MV E-wave Vmax 0.57 m/sec MV deceleration [id number] msec MV A-wave Vmax 0.9 m/sec MV E:A ratio 0.64 ratio LV septal e' Vmax 0.04 m/sec LV lateral e' Vmax 0.08 m/sec LV average e' Vmax 0.06 m/sec LV E:e' septal ratio14.25 ratio LV E:e' lateral rati7.13 ratio LV average E:e' rati9.5 ratio Wall Motion: Segment Name Rest Base-Anteroseptal Normal Base-Anterior Normal Base-Anterolateral Normal Base-Posterolateral Normal Base-Inferior Normal Base-Inferoseptal Normal Mid-Anteroseptal Hypokinetic Mid-Anterior Hypokinetic Mid-Anterolateral Hypokinetic Mid-Posterolateral Normal Mid-Inferior Normal Mid-Inferoseptal Normal [place]-Septal Hypokinetic [place]-Anterior Hypokinetic [place]-Lateral Hypokinetic [place]-Inferior Normal [place]-Tip Hypokinetic This report has been electronically signed by: Valdemar Santiago MD 03/15/2020 16:17:44 Images reviewed and interpretation verified [facility] Sammie Bourne [employer] ECHO ORDERABLES * COVID-19 PCR (03/15/2020 2:14 PM EST) SARS-CoV-2 RNA PCR Not Detected Not Detected [facility] Comment: This result should be interpreted in combination with the clinical observations, patient history and epidemiological information. For testing of asymptomatic individuals, assay performance characteristics and clinical utility have not been evaluated. Testing for SARS-CoV-2 (Severe acute respiratory syndrome coronavirus 2, formerly known as 2019 novel coronavirus or 2019-nCoV) to aid in the diagnosis of COVID-19 is performed using the Simplexa COVID-19 Direct Assay by [employer] as authorized by the FDA issued Emergency Use Authorization (EUA). This assay is intended for In-vitro Diagnostic (IVD) use with nasopharyngeal swabs collected from individuals meeting the CDC criteria for testing. The assay is performed based on the instructions for use and additional guidance provided by the FDA. Testing is performed in the Microbiology Laboratory within the Department of Pathology and Laboratory Medicine at [facility], certified under the Clinical Laboratory Improvement Amendments of 1988 (CLIA), 42 U.S.C. section 263a, to perform high complexity tests. Assay performance has been verified according to clinical laboratory regulatory requirements. Test results are provided above. A result of Not Detected indicates that the viral RNA target is not present but does not preclude SARS-CoV-2 infection. False negative results may occur if a specimen is improperly collected, transported or handled; if amplification inhibitors are present; or if inadequate numbers of viral particles are present in the specimen. A result of Detected suggests a current or recent infection and the patient is presumed to be infected. Positive and negative predictive values for this test are highly dependent on disease prevalence. A result of Invalid indicates the inability to conclusively determine the presence or absence of SARS-CoV-2 RNA in the sample which can be due to a variety of factors. Recollection is recommended in the case of an invalid result. CDC COVID-19 criteria for testing on human specimens and clinical management guidance information are available at the CDC Coronavirus Disease 2019 (COVID-19) webpage under Information for Healthcare Professionals (https://www.cdc.gov/coronavirus/2019-ncov/hcp/index.html). SARS-CoV-2 Source [employer] [facility] Nasopharyngeal swab (specimen) 03/15/2020 2:14 PM EST 03/15/2020 2:35 PM EST Comment:Symptoms->Surveillan ce Narrative Resulting Agency Comment Spec In Lab [facility] - GEN ERAL ORDERABLES [facility] [place] [address] documented in this encounter Visit Diagnoses Not on filedocumented in this encounter Admitting Diagnoses Diagnosis Accelerating angina Intermediate coronary syndrome documented in this encounter Administered Medications Inactive Administered Medications - up to 3 most recent administrations Medication Order MAR Action Action Date Dose Rate Site amLODIPine (Norvasc) tablet 5 mg 5 mg, Oral, DAILY, First dose on Sun03/16/20 at 0930, Until Discontinued, Routine Given 03/17/2020 10:00 AM EST 5 mg Given 03/16/2020 9:06 AM EST 5 mg aspirin chewable tablet 81 mg 81 mg, Oral, DAILY, First dose on Sun03/16/20 at 0930, Until Discontinued, Routine Given 03/17/2020 10: 00 AM EST 81 mg Given 03/16/2020 9:06 AM EST 81 mg clopidogreL (Plavix) tablet 75 mg 75 mg, Oral, DAILY, First dose on Sun03/17/20 at 0900, Until Discontinued, Routine Given 03/17/2020 10:00 AM EST 75 mg clopidogreL (Plavix) tablet ONCE PRN, Starting on Sun03/16/20 at 1532, Until Sun03/16/20 at 1602, Intra-Operative (Intra-Procedure), Routine Given 03/16/2020 3:32 PM EST 600 mg fentaNYL 50 mcg/mL multi-dose injection ONCE PRN, Starting on Sun03/16/20 at 1521, Until Sun03/16/20 at 1601, Intra-Operative (Intra-Procedure), Routine Given 03/16/2020 3:21 PM EST 25 mcg heparin (porcine) 1,000 unit/mL injection ONCE PRN, Starting on Sun03/16/20 at 1441, Until Sun03/16/20 at 1601, Cath (Intra-Procedure), Routine Given 03/16/2020 3:19 PM EST 2,000 Units Given 03/16/2020 3:05 PM EST 1,500 Units Given 03/16/2020 2:41 PM EST 4,000 Units heparin (porcine) 50 units/mL in sodium chloride 0.45% 500 mL infusion 0-5,000 Units/hr (0-100 mL/hr), Intravenous, CONTINUOUS, Starting on Sun03/15/20 at 1615, Until Sun03/17/20 at 1538, BEGIN infusion at 1,000 units per hr (12 units/kg/hr). MAX INITIAL infusion rate is 1,000 units/hr. Target Heparin UFH Level (anti-Xa activity) = 0.3 - 0.7 IU/mL Start adjustment schedule 6 hours after starting infusion. If Heparin UFH Level is: - less than 0.1 IU/mL, administer PRN bolus and increase rate by 350 units per hr (4 units/kg/hr) - 0.1 - 0.29 IU/mL, administer PRN bolus and increase rate by 200 units per hr (2 units/kg/hr) - 0.3 - 0.7 IU/mL, No Change - 0.71 - 0.85 IU/mL, decrease rate by 100 units per hr (1 units/kg/hr) - 0.86 - 1.05 IU/mL, stop infusion for 30 minutes, then decrease rate by 200 units per hr (2 units/kg/hr) - Greater than 1.05 IU/mL, stop infusion for 60 minutes, then decrease rate by 300 units per hour (3 units/kg/hr) Repeat Heparin UFH Level 6 hours after initiating heparin. Then 6 hours after each dose adjustment. When 2 consecutive Heparin UFH Level within target range of 0.3 - 0.7 IU/mL, change Heparin UFH Level to once every 24 hours with A.M. labs while on heparin. RN to order required Heparin UFH Level - Per Protocol, Routine Rate/Dose Verify 03/16/2020 4:29 AM EST 1,000 Units/hr 20 mL/hr Rate/Dose Verify 03/15/2020 10:23 PM EST 1,000 Units/hr 20 mL/hr Rate/Dose Verify 03/15/2020 9:17 PM EST 1,000 Units/hr 20 mL/hr heparin (porcine) injection 0-4,000 Units 0-4,000 Units, Intravenous, BOLUS PER HEPARIN PROTOCOL, Starting on Sun03/15/20 at 1519, Until Sun03/17/20 at 1538, Per Protocol, START ADJUSTMENT SCHEDULE 6 HOURS AFTER STARTING INFUSION Heparin UFH Level between 0.1 - 0.29 IU/mL: Bolus 2,000 units Heparin UFH Level less than 0.1 IU/mL: Bolus 4,000 units, Routine iohexoL (Omnipaque) 350 mg/mL solution ONCE PRN, Starting on Sun03/16/20 at 1600, Until Sun03/16/20 at 1601, Cath (Intra-Procedure), Routine Given 03/16/2020 4:00 PM EST 85 mLs losartan (Cozaar) tablet 25 mg 25 mg, Oral, DAILY, First dose on Sun03/16/20 at 0930, Until Discontinued, Routine Given 03/17/2020 10:05 AM EST 25 mg Given 03/16/2020 9:06 AM EST 25 mg metoprolol succinate XL (Toprol-XL) tablet 12.5 mg 12.5 mg, Oral, DAILY, First dose on Sun03/17/20 at 0900, Until Discontinued, DO NOT CRUSH OR OPEN, Routine Given 03/17/2020 10:01 AM EST 12.5 mg midazolam (PF) (VERSED) multi-dose injection ONCE PRN, Starting on Sun03/16/20 at 1431, Until Sun03/16/20 at 1601, Cath (Intra-Procedure), Routine Given 03/16/2020 3:21 PM EST 1 mg Given 03/16/2020 2:31 PM EST 1 mg Given 03/16/2020 2:31 PM EST 1 mg nitroGLYcerin (Nitrostat) disintegrating tablet 0.4 mg 0.4 mg, Sublingual, EVERY 5 MIN PRN, Starting on Sun03/16/20 at 1617, Until Sun03/17/20 at 1538, Chest pain, May repeat every 5 minutes for a total of three doses. Notify provider if chest pain not relieved with nitroglycerin. Do not administer nitroglycerin if the patient has received or taken phosphodiesterase (PDE-5) inhibitors such as sildenafil, tadalafil or vardenafil within the last 24 to 72 hours., Recovery (Recovery-Hospital Unit), Routine nitroGLYcerin 100 mcg/mL intracoronary dilution ONCE PRN, Starting on Sun03/16/20 at 1439, Until Sun03/16/20 at 1601, Cath (Intra-Procedure), Routine Given 03/16/2020 2:39 PM EST 150 mcg oxybutynin XL (Ditropan-XL) tablet 5 mg 5 mg, Oral, NIGHTLY, First dose on Sun03/16/20 at 2100, Until Discontinued, DO NOT CRUSH OR OPEN, Routine Given 03/16/2020 8:51 PM EST 5 mg terazosin (Hytrin) capsule 5 mg 5 mg, Oral, NIGHTLY, First dose on Sun03/16/20 at 2100, Until Discontinued, Routine Given 03/16/2020 8:53 PM EST 5 mg verapamiL (Isoptin) injection ONCE PRN, Starting on Sun03/16/20 at 1438, Until Sun03/16/20 at 1602, Administer over 2 Minutes, Cath (Intra-Procedure) Given 03/16/2020 2:38 PM EST 2.5 mg documented in this encounter Active and Recently Administered Medications Times are shown in EST. Scheduled Medication Order 03/15/2020 03/16/2020 03/17/2020 amLODIPine (Norvasc) tablet 5 mg 5 mg, Oral, DAILY, First dose on Sun03/16/20 at 0930, Until Discontinued, Routine 0906 (Given - Provider: Bella Esquivel RN)1413 (MAR Hold - Provider: Admin Adt - Reason: Transfer to a Procedural area)1708 (MAR Unhold - Provider: Admin Adt) 1000 (Given - Provider: Gabriela Reeder, RN) aspirin chewable tablet 81 mg 81 mg, Oral, DAILY, First dose on Sun03/16/20 at 0930, Until Discontinued, Routine 0906 (Given - Provider: Bella Esquivel RN)1413 (MAR Hold - Provider: Admin Adt - Reason: Transfer to a Procedural area)1708 (MAR Unhold - Provider: Admin Adt) 1000 (Given - Provider: Gabriela Reeder, RN) atorvastatin (Lipitor) tablet 80 mg 80 mg, Oral, EVERY EVENING, First dose on Sun03/16/20 at 1700, Until Discontinued, Routine 1413 (MAR Hold - Provider: Admin Adt - Reason: Transfer to a Procedural area)1700 (Automatically Held - Provider: Admin Adt)1708 (MAR Unhold - Provider: Admin Adt) clopidogreL (Plavix) tablet 75 mg 75 mg, Oral, DAILY, First dose on Sun03/17/20 at 0900, Until Discontinued, Routine 1000 (Given - Provider: Gabriela Reeder, KEVIN) losartan (Cozaar) tablet 25 mg 25 mg, Oral, DAILY, First dose on Sun03/16/20 at 0930, Until Discontinued, Routine 0906 (Given - Provider: Bella Esquivel, KEVIN)1413 ([facility] Hold - Provider: Admin Adt - Reason: Transfer to a Procedural area)170 ([facility] Unhold - Provider: Admin Adt) 1005 (Given - Provider: Gabriela Reeder, KEVIN) metoprolol succinate XL (Toprol-XL) tablet 12.5 mg 12.5 mg, Oral, DAILY, First dose on Sun03/17/20 at 0900, Until Discontinued, DO NOT CRUSH OR OPEN, Routine 1001 (Given - Provider: Gabriela Reeder RN) metoprolol tartrate (Lopressor) tablet 12.5 mg (CANCELED) 12.5 mg, Oral, EVERY 12 HOURS SCHEDULED, First dose on Sun03/15/20 at 2100, Until Discontinued, Hold for HR <50bpm, Routine 2115 (Given - Provider: Katina Shaffer RN) 0808 (Given - Provider: Bella Esquivel, KEVIN)1413 ([facility] Hold - Provider: Admin Adt - Reason: Transfer to a Procedural area)1707 ([facility] Unhold - Provider: Admin Adt)2099 (Not Given - Provider: Abelardo Buck RN - Reason: Order parameters not met - Comment: HR 45 while awake) oxybutynin XL (Ditropan-XL) tablet 5 mg 5 mg, Oral, NIGHTLY, First dose on Sun03/16/20 at 2100, Until Discontinued, DO NOT CRUSH OR OPEN, Routine 1413 ([facility] Hold - Provider: Admin Adt - Reason: Transfer to a Procedural area)170 ([facility] Unhold - Provider: Admin Adt)2050 (Given - Provider: Abelardo Buck, KEVIN) terazosin (Hytrin) capsule 5 mg 5 mg, Oral, NIGHTLY, First dose on Sun03/16/20 at 2100, Until Discontinued, Routine 1413 ([facility] Hold - Provider: Admin Adt - Reason: Transfer to a Procedural area)170 ([facility] Unhold - Provider: Admin Adt)2052 (Given - Provider: Abelardo Buck, KEVIN) Continuous Medication Order 03/15/2020 03/16/2020 03/17/2020 heparin (porcine) 50 units/mL in sodium chloride 0.45% 500 mL infusion(Linked Group 1) 0-5,000 Units/hr (0-100 mL/hr), Intravenous, CONTINUOUS, Starting on 03/15/20 at 1615, Until 03/17/20 at 1538, BEGIN infusion at 1,000 units per hr (12 units/kg/hr). MAX INITIAL infusion rate is 1,000 units/hr. Target Heparin UFH Level (anti-Xa activity) = 0.3 - 0.7 IU/mL Start adjustment schedule 6 hours after starting infusion. If Heparin UFH Level is: - less than 0.1 IU/mL, administer PRN bolus and increase rate by 350 units per hr (4 units/kg/hr) - 0.1 - 0.29 IU/mL, administer PRN bolus and increase rate by 200 units per hr (2 units/kg/hr) - 0.3 - 0.7 IU/mL, No Change - 0.71 - 0.85 IU/mL, decrease rate by 100 units per hr (1 units/kg/hr) - 0.86 - 1.05 IU/mL, stop infusion for 30 minutes, then decrease rate by 200 units per hr (2 units/kg/hr) - Greater than 1.05 IU/mL, stop infusion for 60 minutes, then decrease rate by 300 units per hour (3 units/kg/hr) Repeat Heparin UFH Level 6 hours after initiating heparin. Then 6 hours after each dose adjustment. When 2 consecutive Heparin UFH Level within target range of 0.3 - 0.7 IU/mL, change Heparin UFH Level to once every 24 hours with A.M. labs while on heparin. RN to order required Heparin UFH Level - Per Protocol, Routine 1611 (New Bag - Provider: Keny Hutton RN)2117 (Rate/Dose Verify - Provider: Katina Shaffer RN)2223 (Rate/Dose Verify - Provider: Katina Shaffer RN) 0429 (Rate/Dose Verify - Provider: Katina Shaffer RN)1413 (MAR Hold - Provider: Admin Adt - Reason: Transfer to a Procedural area)1708 ([facility] Unhold - Provider: Admin Adt) sodium chloride 0.9% infusion () 150 mL/hr, Intravenous, CONTINUOUS, Starting on Sun03/16/20 at 1645, Until Sun03/16/20 at 2044, Recovery (Recovery-Hospital Unit) 1630 (New Bag - Provider: Gissel Scott RN) PRN Medication Order 03/15/2020 03/16/2020 03/17/2020 clopidogreL (Plavix) tablet (CANCELED) ONCE PRN, Starting on Sun03/16/20 at 1532, Until Sun03/16/20 at 1602, Intra-Operative (Intra-Procedure), Routine 1532 (Given - Provider: Artur Welch, KEVIN) fentaNYL 50 mcg/mL multi-dose injection (CANCELED) ONCE PRN, Starting on Sun03/16/20 at 1521, Until Sun03/16/20 at 1601, Intra-Operative (Intra-Procedure), Routine 1521 (Given - Provider: Artur Welch, KEVIN) heparin (porcine) 1,000 unit/mL injection (CANCELED) ONCE PRN, Starting on Sun03/16/20 at 1441, Until Sun03/16/20 at 1601, Cath (Intra-Procedure), Routine 1441 (Given - Provider: Keny Cortes RN)1505 (Given - Provider: Keny Cortes RN)1519 (Given - Provider: Artur Welch, KEVIN) heparin (porcine) injection 0-4,000 Units(Linked Group 1) 0-4,000 Units, Intravenous, BOLUS PER HEPARIN PROTOCOL, Starting on Sun03/15/20 at 1519, Until Sun03/17/20 at 1538, Per Protocol, START ADJUSTMENT SCHEDULE 6 HOURS AFTER STARTING INFUSION Heparin UFH Level between 0.1 - 0.29 IU/mL: Bolus 2,000 units Heparin UFH Level less than 0.1 IU/mL: Bolus 4,000 units, Routine 1413 (MAR Hold - Provider: Admin Adt - Reason: Transfer to a Procedural area)1708 (MAR Unhold - Provider: Admin Adt) iohexoL (Omnipaque) 350 mg/mL solution (CANCELED) ONCE PRN, Starting on Sun03/16/20 at 1600, Until Sun03/16/20 at 1601, Cath (Intra-Procedure), Routine 1600 (Given - Provider: Elias Berkowitz) midazolam (PF) (VERSED) multi-dose injection (CANCELED) ONCE PRN, Starting on Sun03/16/20 at 1431, Until Sun03/16/20 at 1601, Cath (Intra-Procedure), Routine 1431 (Given - Provider: Keny Cortes RN)1431 (Given - Provider: Keny Cortes RN)1521 (Given - Provider: Artur Welch RN) nitroGLYcerin (Nitrostat) disintegrating tablet 0.4 mg 0.4 mg, Sublingual, EVERY 5 MIN PRN, Starting on Sun03/16/20 at 1617, Until Sun03/17/20 at 1538, Chest pain, May repeat every 5 minutes for a total of three doses. Notify provider if chest pain not relieved with nitroglycerin. Do not administer nitroglycerin if the patient has received or taken phosphodiesterase (PDE-5) inhibitors such as sildenafil, tadalafil or vardenafil within the last 24 to 72 hours., Recovery (Recovery-Hospital Unit), Routine nitroGLYcerin 100 mcg/mL intracoronary dilution (CANCELED) ONCE PRN, Starting on Sun03/16/20 at 1439, Until Sun03/16/20 at 1601, Cath (Intra-Procedure), Routine 1439 (Given - Provider: Delvin Morris DO) perflutren lipid microspheres (DEFINITY) injection 1.5 mL (COMPLETED) 1.5 mL, Intravenous, ONCE PRN, 1 dose, Starting on Sun03/15/20 at 1533, Until Sun03/15/20 at 1400, PRN, Routine 1400 (Given - Provider: Martin Matthew) verapamiL (Isoptin) injection (CANCELED) ONCE PRN, Starting on Sun03/16/20 at 1438, Until Sun03/16/20 at 1602, Administer over 2 Minutes, Cath (Intra-Procedure) 1438 (Given - Provider: Delvin Morris DO) Linked Groups Order Group 1: heparin (porcine) injection 0-4,000 UnitsJump to med 0-4,000 Units, Intravenous, BOLUS PER HEPARIN PROTOCOL, Starting on Sun03/15/20 at 1519, Until Sun03/17/20 at 1538, Per Protocol, START ADJUSTMENT SCHEDULE 6 HOURS AFTER STARTING INFUSION Heparin UFH Level between 0.1 - 0.29 IU/mL: Bolus 2,000 units Heparin UFH Level less than 0.1 IU/mL: Bolus 4,000 units, Routine And heparin (porcine) 50 units/mL in sodium chloride 0.45% 500 mL infusionJump to med 0-5,000 Units/hr (0-100 mL/hr), Intravenous, CONTINUOUS, Starting on Sun03/15/20 at 1615, Until Sun03/17/20 at 1538, BEGIN infusion at 1,000 units per hr (12 units/kg/hr). MAX INITIAL infusion rate is 1,000 units/hr. Target Heparin UFH Level (anti-Xa activity) = 0.3 - 0.7 IU/mL Start adjustment schedule 6 hours after starting infusion. If Heparin UFH Level is: - less than 0.1 IU/mL, administer PRN bolus and increase rate by 350 units per hr (4 units/kg/hr) - 0.1 - 0.29 IU/mL, administer PRN bolus and increase rate by 200 units per hr (2 units/kg/hr) - 0.3 - 0.7 IU/mL, No Change - 0.71 - 0.85 IU/mL, decrease rate by 100 units per hr (1 units/kg/hr) - 0.86 - 1.05 IU/mL, stop infusion for 30 minutes, then decrease rate by 200 units per hr (2 units/kg/hr) - Greater than 1.05 IU/mL, stop infusion for 60 minutes, then decrease rate by 300 units per hour (3 units/kg/hr) Repeat Heparin UFH Level 6 hours after initiating heparin. Then 6 hours after each dose adjustment. When 2 consecutive Heparin UFH Level within target range of 0.3 - 0.7 IU/mL, change Heparin UFH Level to once every 24 hours with A.M. labs while on heparin. RN to order required Heparin UFH Level - Per Protocol, Routine documented in this encounter Care Teams Oyster Cultivator Relationship Specialty Start Date End Date Tr Hendrix DO [address] [place] [address] PCP - General Family Medicine 05/24/17 documented as of this encounter
--- OUTSIDE RECORDS SUMMARY | 2023-11-13 09:22 | XMS_ITS | Encounter Summary ---
[place] [address] Care Team Providers Care Agriculture Laborer Name Role Phone Tr Hendrix DO Primary Care Provider [phone] Reason for Visit * Reason Comments Follow-up Encounter Details Date Type Department Care Team (Late st Contact Info) Description 05/31/2020 10:00 AM EST Office Visit Dermatology at [address] [id number] Mustapha Lemos MD [address] [facility] [place] [address] Seborrheic dermatitis; History of malignant melanoma; Dermatitis [...] Progress Notes * Mustapha Lemos MD - 05/31/2020 10:00 AM EST Problem: 1.?Follow-up for yearly skin checkup. 2. 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 ??History of malignant??melanoma, right shoulder, June 2010 4. ??History of going up [place] with frequent sun exposure 5. ??Recalcitrant seborrheic dermatitis which does not bother patient ?? Storm follows up today for a 1 year check. The SCCA treatment site on his right cheek is healed well. There is no evidence of any new lesions of concern elsewhere. Physical examination reveals a pleasant 75-year-old gentleman who has benign examination of the face the neck the chest the back of the hands the arms the forearms the thighs and the calves. He has awell-healed surgical sites on the left flank and on the right shoulder. There is no cervical or axillary adenopathy today. Assessment and plan: History of malignant melanomas 1. Patient reassured about his benign examination today 2. Continue sun avoidance cautions 3. Return to clinic in a year for repeat check Seborrheic dermatitis facial 1. Not bothersome to patient. He has already tried Elidel, Protopic, Cutar lotion, none of these worked, and he really does not want to try anything else for the facial involvement 2. We will renew his ketoconazole 2% shampoo use the shampoo on a daily basis as needed. Dispense 120 mL with as needed refills. CC: Tr Hendrix DO documented in this encounter Plan of Treatment Upcoming Encounters Date Type Department Care Team (Late st Contact Info) Description 06/20/2024 10:00 AM EST Office Visit Dermatology at [address] [phone] Mustapha Lemos MD [address] [place] [address] [place] [address] documented as of this encounter Visit Diagnoses Diagnosis Seborrheic dermatitis Seborrheic dermatitis, unspecified History of malignant melanoma Personal history of malignant melanoma of skin Dermatitis Contact dermatitis and other eczema, due to unspecified cause documented in this encounter Care Teams Agriculture Laborer Relationship Specialty Start Date End Date Tr Hendrix DO [address] [place] [address] PCP - General Family Medicine 05/24/17 documented as of this encounter
--- OUTSIDE RECORDS SUMMARY | 2023-11-13 09:22 | XMS_ITS | Encounter Summary ---
Author Organization [facility] [place] [address] Care Team Providers Care Branch Service Leader Name Role Phone Tr Hendrix DO Primary Care Provider [phone] Reason for Referral * Diagnostic Test (Routine) - Closed Specialty Diagnoses / Procedures Referred By Contac t Referred To Contact Cardiology Diagnoses HFrEF (heart failure with reduced ejection fraction) ASCVD (arteriosclerotic cardiovascular disease) Procedures Echocardiogram Transthoracic([facility]) Maury Duarte MD [facility] [place] [address] [facility] [place] [address] Referral ID Status Reason Start Date Expiration Date V isits Requested Visits Authorized [id number] Closed Specialty Service Requested 05/10/2020 05/10/2021 1 1 Reason for Visit * Reason Comments Coronary Artery Disease Congestive Heart Failure Encounter Details Date Type Department Care Team (Latest Contact Info) Description 05/10/2020 10:20 AM EST Office Visit Cardiology at [address] [address] Maury Duarte MD [facility] [place] [address] Abdominal aortic aneurysm (AAA) without rupture; HFrEF (heart failure with reduced ejection fraction); [...] Sign Reading Time Taken Comments Blood Pressure 151/58 05/10/2020 10:07 AM EST Pulse 50 05/10/2020 10:07 AM EST Temperature - - Respiratory Rate - - Oxygen Saturation 94% 05/10/2020 10:07 AM EST Inhaled Oxygen Concentration - - Weight 91.2 kg (201 lb) 05/10/2020 10:07 AM EST Height 175.3 cm (5' 9) 05/10/2020 10:07 AM EST Body Mass Index 29.68 05/10/2020 10:07 AM EST documented in this encounter Progress Notes * Maury Duarte MD - 05/10/2020 10:20 AM EST Images from the original note were not included. [facility] [place] [id number] CARDIOVASCULAR MEDICINE OUTPATIENT CONSULTATION Storm Nolasco [id number] 05/10/2020 REFERRING PROVIDER: Tr Hendrix CHIEF COMPLAINT: Chief Complaint Patient presents with ??? Coronary Artery Disease ??? Congestive Heart Failure PROBLEM LIST Patient Active Problem List Diagnosis ??? Accelerating [...] pT1b pNx pMx ??? Hypertension on medication HISTORY OF PRESENT ILLNESS: Mr. Nolasco is a very pleasant 74 year old man with history of HTN, HLD, prior smoker, AAA s/p open AAA repair and repair of bilateral common iliac artery aneurysms with post-operative AF who presented??with accelerating angina in February 2020 - TTE with EF 39% with anterior/apical WMA. 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 He was discharged on GDMT with DAPT, BB,ARB, high intensity statin. He reports that since discharge, he has overall felt well. He is active on a daily basis, walking on his treadmill and has had no angina or shortness of breath. He did note that on a day that he missed his morning medications, he consequently had chest pressure that lasted quite some time. He actually took sublingual nitroglycerin, which did not resolve the pain. The pain went away spontaneously He has not had any recurrence. He denies PND, orthopnea, lower extreme edema, presyncope or syncope. He is tolerating dual antiplatelet therapy without issues. He has noted that his blood pressure has been a bit elevated since discharge. PAST MEDICAL HISTORY: HTN HLD CAD AAA REVIEW OF SYSTEMS: GENERAL HEENT CV PULM x All negative x All negative All negative x All negative Weight loss Headache x Chest Pain Non-productive cough Weight gain Vision change Palpitations Productive cough Fevers Sinus congestion Orthopnea Wheezing Chills Hoarseness LE edema Hemoptysis Night sweats Epistaxis PND Pleuritic pain Fatigue Syncope SOB Claudication [facility] RENAL ENDO GI x All negative x All negative x All negative x All negative Arthralgias Frequency Heat intolerance Blood in stool Myalgias Urgency Cold intolerance Dysphagia Weakness Hematuria Polydipsia Odynophagia Stiffness Flank pain Polyphagia Abdominal discomfort Dysuria Cushingoid Constipation Foamy urine Diarrhea Discharge Nausea/Vomiting LYMPH SKIN NEURO PSYCH x All negative x All negative x All negative x All negative Swollen nodes Rash Seizures Depressed affect Tender nodes Ulcers Tremors Occupational stress Diffuse nodes Bruising Spasticity Anxiety Local nodes Tanned skin Focal weakness Insomnia Night sweats Telangiectasias Diplopia Paresthesias Dizziness FAMILY HISTORY: No family history on file. SOCIAL HISTORY: Social History Tobacco Use ??? Smoking status: Former Smoker Packs/day: 1.00 Years: 50.00 Pack years: 50.00 Types: Cigarettes Quit date: 07/30/2015 Years since quittin.7 ??? Smokeless tobacco: Never Used Substance Use Topics ??? Alcohol use: Yes Alcohol/week: 14.0 standard drinks Types: 14 Glasses of wine per week MEDICATIONS: Current Outpatient Medications Medication Sig Dispense Refill ??? clopidogreL (Plavix) 75 mg Tablet Take 1 tablet by mouth daily. 90 tablet 3 ??? metoprolol succinate XL (Toprol-XL) 25 mg Tablet Sustained Release 24 hr Take 0.5 tablets by mouth daily. 30 tablet 5 ??? nitroGLYcerin (Nitrostat) 0.4 mg Tablet, Sublingual Place 1 tablet under the tongue every 5 minutes as needed for Chest pain. 20 tablet 0 ??? losartan (Cozaar) 25 mg Tablet Take 25 mg by mouth daily. ??? aspirin 81 mg Tablet, Chewable Take [...] Tablet Take 80 mg by mouth daily. ??? ketoconazole (NIZORAL) 2 % Shampoo Apply as shampoo once daily (three months supply) 360 mL 3 ??? sacubitriL-valsartan (Entresto) 24-26 mg Tablet tablet Take 1 tablet by mouth 2 times daily. 60tablet 12 No current facility-administered medications for this visit. ALLERGIES: Hydrochlorothiazide and Lisinopril PHYSICAL EXAMINATION: Vital Signs: BP 151/58 Pulse 50 Ht 175.3 cm (5' 9) Wt 91.2 kg (201 lb) SpO2 94% BMI 29.68 kg/m?? Exam Details: General: Pleasant 74 y.o. man in no acute distress Eyes: No scleral icterus ENT: Moist mucous membranes Heart: Regular rate and rhythm, normal S1/S2, no murmurs/rubs/gallops appreciated Lungs: Clear to ascultation bilaterally Abdomen: Soft, non-tender, non-distended, normoactive bowel sounds noted. No hepatosplenomegaly Extremities: No peripheral edema noted. No ulcerations noted. Vessels: [...] 0.92 EKG 05/10/2020: NSR 50 bpm, LBBB TTE 03/15/2020: 1. The left ventricular chamber [...] See remainder of report for additional findings. Cath 03/16/2020: Hemodynamics: Left Heart Pressures Resting: Syst Diast [...] 4.0 guiding catheter and a 3.[address] [facility] [place] [address] 20 Mhz. Imaging was successful. Image [...] 10%. The final ITZEL flow was 3. ASSESSMENT AND PLAN: #1 HFrEF, EF 40% #2 NSTEMI s/p PCI to LCX #3 ASCVD #4 Hypertension #5 Hyperlipidemia Mr. Nolasco is a very pleasant 74-year-old gentleman with history of abdominal aortic aneurysm and bilateral common iliac artery aneurysms status post open repair and recent admission to cardiologyservice for accelerating angina, found to have heart failure with reduced ejection fraction and ejection fraction of around 40%, chronic total occlusion of RCA and now status post PCI to circumflex. He has been doing well although after missing one day of medications, he had no angina, with no recurrence of symptoms with his medications. At this point, we discussed about GDMT with HFrEF. He's on BB and cannot further up-titrate due to bradycardia. He's on ARB and is hypertensive in clinic - given EF, I would like to see if Entresto will be affordable. No indication for MRA. He continue on DAPT given PCI (plan for 1 year, February 2021) and high intensity statin. Plan: 1. Send Rx to pharmacy for Entresto for cost. If he starts on Entersto, he will need BMP in 1 week and I have given him slip to do this closer to home. 2. Continue DAPT, metoprolol succinate 25 mg daily, atorvastatin 80 mg daily and losartan 25 mg daily (until he switches to Entresto). 3. TTE in 3 months and return to clinic at afterwards. Thank you for allowing me to participate in the care of your patient. Please do not hesitate to contact me with any questions or concerns. 50 minutes spent reviewing records, personally reviewing imaging (TTE, cath) and in [id number] consultation with patient. Maury Duarte MD, MPH, RPVI, [facility] Cardiovascular Fruit CutterWash Crew Personaccounts [place] [address] documented in this encounter Plan of Treatment Upcoming Encounters Date Type Department Care Team (Late st Contact Info) Description 06/20/2024 10:00 AM EST Office Visit Dermatology at [address] [address] Mustapha Lemos MD [address] [facility] [place] [address] documented as of this encounter Procedures Procedure Name Priority Date/Time Associated Diagnosis Comments EKG 12-LEAD Routine 05/10/2020 10:23 AM EST Abdominal aortic aneurysm (AAA) without rupture documented in this encounter Results * ECHO COMPLETE W CONTRAST (08/30/2020 11:41 AM EDT) EF 39 HEARTMicrobank Software SYSTEM Anatomical Region Laterality Modality Other 08/30/2020 Narrative 08/30/2020 11:59 AM EDT Procedure: ?Transthoracic Echocardiogram Patient: ?ELISE STORM Anthony ?? (Age): 1945(75y) Med Rec#: ? [id number] ?Sex: ?M ? Site Loc: ? [facility] ?Ht / Wt: ??175.26(cm)/91.1 Pt. Loc: ?Echo Lab ?BSA: ?2.07 Study Date: ?? 08/30/2020 ?Pt. Type: Outpatient Tape: ? Referring: TYLER Reading: Maury Duarte ??([id number]) Artist'S Representative: Yaneli Streeter Diagnosis: *Unspecified systolic (congestive) heart failure (I50.20) *Atherosclerotic heart disease of [place] coronary artery without angina pectoris (I25.10) BP: [...] Vmax ?0.48 ? m/sec ? MV deceleration unoa512.38 ? msec ? MV A-wave Vmax ?0.76 [...] ? Mid-Inferior ?Normal ? Mid-Inferoseptal ?Normal ? [place]-Septal ? Hypokinetic ? [place]-Anterior ? Hypokinetic ? [place]-Lateral ?Hypokinetic ? [place]-Inferior ? Normal ? [place]-Tip ?Hypokinetic ? This report has been electronically signed by: Maury Duarte ? 08/30/2020 11:59:00 Images reviewed and interpretation verified [facility] Cardiac Ultrasound Laboratory Procedure Note Maury Duarte MD - 08/30/2020 Procedure: Transthoracic Echocardiogram Patient: ELISE PAGE(Age): 1945(75y) Med Rec#: [id number] Sex: M Site Loc: [facility] Ht / Wt: 175.26(cm)/91.1 Pt. Loc: Echo Lab BSA: 2.07 Study Date: 08/30/2020 Pt. Type: Outpatient Tape: Referring: TYLER Reading: Maury Duarte ([id number]) Artist'S Representative: Yaneli Streeter Diagnosis: *Unspecified systolic (congestive) heart failure (I50.20) *Atherosclerotic heart disease of [place] coronary artery without angina pectoris (I25.10) BP: [...] MV E-wave Vmax 0.48 m/sec MV deceleration nhev373.38 msec MV A-wave Vmax 0.76 m/sec MV [...] Hypokinetic Mid-Posterolateral Normal Mid-Inferior Normal Mid-Inferoseptal Normal [place]-Septal Hypokinetic [place]-Anterior Hypokinetic [place]-Lateral Hypokinetic [place]-Inferior Normal [place]-Tip Hypokinetic This report has been electronically signed by: Maury Duarte 08/30/2020 11:59:00 Images reviewed and interpretation verified [facility] Cardiac Ultrasound Laboratory Maury Duarte MD ECHO ORDERABLES * EKG 12 Lead (05/10/2020 10:23 AM EST) Ventricular rate 50 BPM MUSE SYSTEM Atrial Rate 50 BPM MUSE SYSTEM P-R Interval 180 ms MUSE SYSTEM QRS Duration 152 ms MUSE SYSTEM Q-T Interval 500 ms MUSE SYSTEM QTC Calculated (Bezet) 455 ms MUSE SYSTEM Calculated P [place] 42 degrees MUSE SYSTEM Calculated R [place] 41 degrees MUSE SYSTEM Calculated T [place] -9 degrees MUSE SYSTEM INTERPRETATION Sinus bradycardia Left bundle branch block Abnormal ECG When compared with ECG of 17-MAR-2020 07:12, No significant change was found Confirmed by Rupa Monroe ([id number]) on 05/10/2020 12:52:09 PM MUSE SYSTEM 05/10/2020 10:2 3 AM EST 05/10/2020 12:52 PM EST Maury Duarte MD ECG ORDERABLES MUSE SYSTEM documented in this encounter Visit Diagnoses Diagnosis Abdominal aortic aneurysm (AAA) without rupture HFrEF (heart failure with reduced ejection fraction) ASCVD (arteriosclerotic cardiovascular disease) Unspecified cardiovascular disease Essential hypertension Unspecified essential hypertension HFrEF (heart failure with reduced ejection fraction) ASCVD (arteriosclerotic cardiovascular disease) Unspecified cardiovascular disease documented in this encounter Care Teams Branch Service Leader Relationship Specialty Start Date End Date Tr Hendrix DO [address] [place] [address] PCP - General Family Medicine 05/24/17 documented as of this encounter
--- OUTSIDE RECORDS SUMMARY | 2023-11-13 09:22 | XMS_ITS | Encounter Summary ---
Author Organization [facility] [place] [address] Care Team Providers Care Lead Informatica Developer Name Role Phone Tr Hendrix DO Primary Care Provider [phone] Encounter Details Date Type Department Care Team (Late st Contact Info) Description 03/15/2020 External Results [place] [phone] Social History Tobacco Use Types Packs/Day Years [...] 10:00 AM EST Office Visit Dermatology at [place] [address] [facility] [place] [address] Mustapha Lemos MD [address] [facility] DERMATOLOGY [place], [place] [id number] documented as of this encounter Procedures Procedure Name Priority Date/Time Associated Diagnosis Comments ECG SCAN Routine 03/15/2020 documented in this encounter Results * Scan Doc: ECG (03/15/2020) Historical Provider MD FERNANDEZ MGR SCAN EX T ORDR/RSLT documented in this encounter Visit Diagnoses Not on filedocumented in this encounter Care Teams Lead Informatica Developer Relationship Specialty Start Date End Date Tr Hendrix DO [address] [place] [address] PCP - General Family Medicine 05/24/17 documented as of this encounter
--- OUTSIDE RECORDS SUMMARY | 2023-11-13 09:22 | XMS_ITS | Encounter Summary ---
Author Organization [facility] [place] [address] Care Team Providers Care Event Coordinator Name Role Phone HeberjenniferTr DO Primary Care Provider [phone] Encounter Details Date Type Department Care Team (Late st Contact Info) Description 05/05/2020 Orders Only Cardiology at [address] [phone] Pricilla Ortega, RN Abdominal aortic aneurysm (AAA) without rupture Social [...] 10:00 AM EST Office Visit Dermatology at [address] [phone] Mustapha Lemos MD [address] [facility] [place] [address] documented as of this encounter Results * EKG 12 Lead (05/10/2020 10:23 AM EST) Ventricular rate 50 BPM MUSE SYSTEM Atrial Rate 50 BPM MUSE SYSTEM P-R Interval 180 ms MUSE SYSTEM QRS Duration 152 ms MUSE SYSTEM Q-T Interval 500 ms MUSE SYSTEM QTC Calculated (Bezet) 455 ms MUSE SYSTEM Calculated P [place] 42 degrees MUSE SYSTEM Calculated R [place] 41 degrees MUSE SYSTEM Calculated T [place] -9 degrees MUSE SYSTEM INTERPRETATION Sinus bradycardia Left bundle branch block Abnormal ECG When compared with ECG of 17-MAR-2020 07:12, No significant change was found Confirmed by Rupa Monroe ([id number]) on 05/10/2020 12:52:09 PM MUSE SYSTEM 05/10/2020 10:2 3 AM EST 05/10/2020 12:52 PM EST Maury Duarte MD ECG ORDERABLES MUSE SYSTEM documented in this encounter Visit Diagnoses Diagnosis Abdominal aortic aneurysm (AAA) without rupture documented in this encounter Care Teams Event Coordinator Relationship Specialty Start Date End Date Tr Hendrix DO [address] [place] [address] PCP - General Family Medicine 05/24/17 documented as of this encounter
--- OUTSIDE RECORDS SUMMARY | 2023-11-13 09:22 | XMS_ITS | Encounter Summary ---
[place] [address] Care Team Providers Care Hand Slitter Name Role Phone Tr Hendrix DO Primary Care Provider [phone] Reason for Referral * Diagnostic Test (Routine) - Closed Specialty Diagnoses / Procedures Referred By Gloria rubio Referred To Contact Radiology Diagnoses Abdominal aortic aneurysm (AAA) without rupture Procedures CT Abdomen & Pelvis wo Contrast [facility] Vascular Surg [address] [place] [address] [facility] [place] [address] Referral ID Status Reason Start Date Expiration Date V isits Requested Visits Authorized [id number] Closed Specialty Service Requested 06/20/2019 12/18/2020 1 1 Encounter Details Date Type Department Care Team (Late st Contact Info) Description 06/20/2019 Orders Only [place] [address] Marjorie Logan, BATCH DUMPER Abdominal aortic aneurysm (AAA) without rupture Social [...] 10:00 AM EST Office Visit Dermatology at [place] [address] [place] [phone] Mustapha Lemos MD [address] [facility] [place] [address] documented as of this encounter Results * [...] ? Electronically signed by: Leanne Zamora MD, [facility] ([phone]), at 06/21/2020 4:18 PM Narrative 06/21/2020 4:18 [...] Diagnosis Abdominal aortic aneurysm (AAA) without rupture Abdominal aortic aneurysm (AAA) without rupture documented in this encounter Care Teams Hand Slitter Relationship Specialty Start Date End Date Tr Hendrix DO [address] [place] [address] PCP - General Family Medicine 05/24/17 documented as of this encounter
--- OUTSIDE RECORDS SUMMARY | 2023-11-13 09:22 | XMS_ITS | Encounter Summary ---
Author Organization [facility] [place] [address] Care Team Providers Care [employer] Name Role Phone Tr Hendrix DO Primary Care Provider [phone] Reason for Referral * Diagnostic Test (Routine) - Closed Specialty Diagnoses / Procedures Referred By Contac t Referred To Contact Radiology Diagnoses Abdominal aortic aneurysm (AAA) without rupture Procedures CT Angiogram Chest Abdomen Pelvis w Contrast Aliyah Romero PA [facility] [place] [address] [facility] [place] [address] Referral ID Status Reason Start Date Expiration Date V isits Requested Visits Authorized [id number] Closed Specialty Service Requested 06/10/2019 12/08/2020 1 1 Reason for Visit * Diagnostic Test (Routine) - Closed Specialty Diagnoses / Procedures Referred By Contac t Referred To Contact Radiology Diagnoses Abdominal aortic aneurysm (AAA) without rupture Procedures CT Angiogram Chest Abdomen Pelvis w Contrast Aliyah Romero PA [facility] [place] [address] [facility] [place] [address] Referral ID Status Reason Start Date Expiration Date V isits Requested Visits Authorized [id number] Closed Specialty Service Requested 06/10/2019 12/08/2020 1 1 Encounter Details Date Type Department Care Team (Latest Contact Info) Description 06/20/2019 8:33 AM EST - 06/20/2019 11:59 PM EST Hospital [place] [address] Abdominal aortic aneurysm (AAA) without rupture Discharge [...] mg Tablet Extended Rel 24 hr 04/11/2019 augmented betamethasone dipropionate (DIPROLENE-AF) 0.05 % Cream Apply 1 each topically 2 times daily for 14 days. 15 g 06/10/2019 06/24/2019 pimecrolimus (ELIDEL) 1 % Cream Apply 1-2 times daily to affected facial and presternal chest sites 30 g 5 05/27/2019 06/09/2021 amLODIPine (NORVASC) 5 mg Tablet Take 1 tablet by mouth daily. 30 tablet 04/08/2019 02/14/2021 mirabegron 50 mg Tablet Sustained Release 24 hr Take by mouth. terazosin (HYTRIN) 5 mg Capsule Bedtime 03/19/2017 06/14/2023 atorvastatin (LIPITOR) 80 mg Tablet Take 80 mg by mouth daily. 03/26/2017 02/14/2021 ketoconazole (NIZORAL) 2 % Shampoo Apply as shampoo once daily (three months supply) 360 mL 3 05/24/2017 05/31/2020 documented as of this encounter Plan of Treatment Upcoming Encounters Date Type Department Care Team (Late st Contact Info) Description 06/20/2024 10:00 AM EST Office Visit Dermatology at [address] [place] [address] Mustapha Lemos MD [address] [facility] [place] [address] documented as of this encounter Procedures Procedure Name Priority Date/Time Associated Diagnosis Comments CT ANGIOGRAM CHEST ABDOMEN PELVIS W CONTRAST Routine 06/20/2019 9:00 AM EST Abdominal aortic aneurysm (AAA) without rupture documented in this encounter Results * CT Angiogram Chest Abdomen Pelvis w Contrast (06/20/2019 9:00 AM EST) Anatomical Region Laterality Modality Abdomen, Chest Computed Tomogra phy Impressions 06/20/2019 9:59 AM EST Post open repair of an infrarenal abdominal aortic aneurysm and common iliac artery aneurysms since the previous study. No complication. The graft is widely patent. Thank you for letting us participate in the care of this patient. For questions regarding this report, please contact the number below. ? Electronically signed by: Choco Walton [facility] ([phone]), at 06/20/2019 9:59 AM Narrative 06/20/2019 9:59 AM EST EXAMINATION: CT ANGIOGRAM CHEST ABDOMEN PELVIS W CONTRAST CLINICAL HISTORY: AAA, monitoring TECHNIQUE: Helical CT angiogram of the chest, abdomen and pelvis was performed following the intravenous administration of contrast. Administered 67.0 ml of OMNIPAQUE 350.00 mg/ml. MPRs were performed. 3-D images were generated on an independent workstation. COMPARISON: 03/14/2019 FINDINGS: VASCULAR FINDINGS Heart: Mild cardiomegaly. Thoracic aorta: No aneurysm. Stable. Great vessel origins: No stenosis. Pulmonary arteries: Limited evaluation Abdominal aorta: Post open repair of an infrarenal abdominal aortic aneurysm and common iliac artery aneurysms since the previous study. No complication. The graft is widely patent. Celiac axis: Widely patent. SMA: Widely patent. Right renal artery: Widely patent. Left renal artery: Proximal moderate to severe stenosis FILIPPO: Proximally excluded Right: Common iliac artery: Part of the open repair. Widely patent External iliac artery: Widely patent. Internal iliac artery: Proximally occluded Common femoral artery: Widely patent. Left: Common iliac artery: Part of the open repair. Widely patent External iliac artery: Widely patent. Internal iliac artery: Proximal partially thrombosed aneurysm, as noted previously. Patent. Common femoral artery: Widely patent. NON-VASCULAR FINDINGS Lungs and large airways: Mild bilateral upper lobe centrilobular emphysematous disease, greater on the LEFT. Pleura: No effusion. Lymph nodes: No enlarged lymph nodes. Mediastinum and za: Normal. Liver: Normal. Bile ducts: Nondilated. Gallbladder: No calcified gallstones. Normal caliber wall. Pancreas: Normal. Spleen: Normal. Kidneys: Table. Symmetric renal enhancement. Adrenals: Normal. Urinary Bladder: Normal. Lymph Nodes: No enlarged lymph nodes. Bowel: Data colonic diverticula. No diverticulitis Peritoneum and mesentery: No ascites, free air, or loculated fluid collection. No mesenteric inflammation. Osseous structures: No significant findings. Procedure Note Choco Walton MD - 06/20/2019 EXAMINATION: CT ANGIOGRAM CHEST ABDOMEN PELVIS W CONTRAST CLINICAL HISTORY: AAA, monitoring TECHNIQUE: Helical CT angiogram of the chest, abdomen and pelvis wasperformed following the intravenous administration of contrast. Administered 67.0 mlof OMNIPAQUE 350.00 mg/ml. MPRs were performed. 3-D images were generated gentry independent workstation. COMPARISON: 03/14/2019 FINDINGS: VASCULAR FINDINGS Heart: Mild cardiomegaly. Thoracic aorta: No aneurysm. Stable. Great vessel origins: No stenosis. Pulmonary arteries: Limited evaluation Abdominal aorta: Post open repair of an infrarenal abdominal aorticaneurysm and common iliac artery aneurysms since the previous study. No complication.The graft is widely patent. Celiac axis: Widely patent. SMA: Widely patent. Right renal artery: Widely patent. Left renal artery: Proximal moderate to severe stenosis FILIPPO: Proximally excluded Right: Common iliac artery: Part of the open repair. Widely patent External iliac artery: Widely patent. Internal iliac artery: Proximally occluded Common femoral artery: Widely patent. Left: Common iliac artery: Part of the open repair. Widely patent External iliac artery: Widely patent. Internal iliac artery: Proximal partially thrombosed aneurysm, as noted previously. Patent. Common femoral artery: Widely patent. NON-VASCULAR FINDINGS Lungs and large airways: Mild bilateral upper lobe centrilobularemphysematous disease, greater on the LEFT. Pleura: No effusion. Lymph nodes: No enlarged lymph nodes. Mediastinum and za: Normal. Liver: Normal. Bile ducts: Nondilated. Gallbladder: No calcified gallstones. Normal caliber wall. Pancreas: Normal. Spleen: Normal. Kidneys: Table. Symmetric renal enhancement. Adrenals: Normal. Urinary Bladder: Normal. Lymph Nodes: No enlarged lymph nodes. Bowel: Data colonic diverticula. No diverticulitis Peritoneum and mesentery: No ascites, free air, or loculated fluidcollection. No mesenteric inflammation. Osseous structures: No significant findings. IMPRESSION Post open repair of an infrarenal abdominal aortic aneurysm and commoniliac artery aneurysms since the previous study. No complication. The graft iswidely patent. Thank you for letting us participate in the care of this patient. Forquestions regarding this report, please contact the number below. Electronically signed by: Choco Walton [facility]([phone]), at 06/20/2019 9:59 AM Helio Duke MD IMG CT ORDERABLES documented in this encounter Visit Diagnoses Diagnosis Abdominal aortic aneurysm (AAA) without rupture documented in this encounter Administered Medications Inactive Administered Medications - up to 3 most recent administrations Medication Order MAR Action Action Date Dose Rate Site iohexoL (OMNIPAQUE) 350 mg/mL solution 0-200 mL 0-200 mL, Intravenous, ONCE PRN, 1 dose, Starting on Sun06/20/19 at 0858, Until Sun06/20/19 at 0858, Per Protocol, Warning Vesicant/Irritant Medication , Radiology Contrast, Routine Given 06/20/2019 8:58 AM EST 67 mLs documented in this encounter Care Teams [employer] Teacher Relationship Specialty Start Date End Date Tr Hendrix DO [address] [place] [address] PCP - General Family Medicine 05/24/17 documented as of this encounter
--- OUTSIDE RECORDS SUMMARY | 2023-11-13 09:22 | XMS_ITS | Encounter Summary ---
[place] [address] Care Team Providers Care Colorer Hides And Skins Name Role Phone Tr Hendrix DO Primary Care Provider [phone] Reason for Referral * Consultation (Routine) - Specialty Diagnoses / Procedures Referred By Contact Referred To Contact Cardiac Rehabilitation Diagnoses S/P coronary artery stent placement Maury Duarte MD [facility] [place] [address] Cardiac Rehab, [address] [place] [address] Referral ID Status Reason Start Date Expiration Date V isits Requested Visits Authorized [id number] Consult, Test & Treat 03/17/2020 09/13/2020 36 36 Reason for Visit * Auth/Cert Specialty Diagnoses / Procedures Referred By Contac t Referred To Contact Diagnoses Accelerating angina Cresendo Angina Referral ID Status Reason Start Date Expiration Date Visits Re quested Visits Authorized [id number] 1 1 Encounter Details Date Type Department Care Team (Latest Contact Info) Description 03/15/2020 12:24 PM EST - 03/17/2020 12:45 PM EST Hospital Encounter Intermediate [place] [id number] Maury Duarte MD [facility] [place] [address] Accelerating angina; S/P coronary artery stent placement Discharge Disposition: Home Social History Tobacco Use [...] Sign Reading Time Taken Comments Blood Pressure 128/59 03/17/2020 11:12 AM EST Pulse 52 03/17/2020 3:39 AM EST Temperature 36.6 ??C (97.9 ??F) 03/17/2020 1 1:12 AM EST Respiratory Rate 18 03/17/2020 11:1 2 AM EST Oxygen Saturation 95% 03/17/2020 11: 12 AM EST Inhaled Oxygen Concentration - - Weight 89.2 kg (196 lb 10.4 oz) 03/17/2020 4:52 AM EST Height - - Body Mass Index 29.04 06/20/2019 9:35 AM EST documented in this encounter Discharge Summaries * Sammie Bourne APRN - 03/16/2020 4:38 PM EST Images from the original note were not included. Discharge Summary Patient Name: Storm Nolasco Patient Age: 74 y.o. Language: Urdu Race: White Ethnicity: Not nor Admit date: 03/15/2020 Discharge date and time: 03/17/2020 Attending Physician: Maury Duarte MD Discharge Physician: Maury Duarte MD Follow-up Recommendations for Providers: 1. Discharge weight was 89.2kg. 2. Cardiac medications at discharge include amlodipine 5mg, ASA 81mg, lipitor 80mg, plavix 75mg, losartan 25mg, metoprolol XL 12.5mg daily. Inpatient Provider Contact Information: Maury Duarte MD Sammie Bourne, STEEL ENGRAVER [phone] Discharge Diagnoses (Hospital Problems) and Secondary Diagnoses [...] 4.0 guiding catheter and a 3.5 Fr [facility] [place] [address] 20 Mhz. Imaging was successful. Image [...] may require modification of this regimen. Consult [facility] Interventional Cardiology for questions. This patient has [...] against any medical treatment. Consult http://tools.acc.org/DAPTriskapp/#!/content/calculator/ or [facility] Interventional Cardiology for questions. 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 History of Presentation: Storm Nolasco is a 74 yo M with HTN, HLD, AAA and b/l common iliac artery repair in 05/2019, former smoker who presented to [facility] with intermittent, exertional chest pressure, relieved with [...] with a cardiac catheterization which revealed a DRUG ABUSE COUNSELOR of the RCA (with collaterals) and a [...] follow-up visit please call one of the fishing captain on Sunday-Sunday between the hours of 8A- 5PM. Cardiology Clinic number @ [phone] If off hours contact the cardiac fellow on- call. Hospital Serging Machine Operator Automatic can help you. Hospital phone number [phone] Return to work: 1 week Drivin hours post catheterization Follow up Appointments: Doctor Where Phone # Date Time Tr Hendrix DO [address] [facility] [address] 03/23/2020 9:15am Zohreh Mcduffie MD [facility] 04/02/2020 9:20am Future Appointments and Orders Future Appointments and Orders Future Appointments Provider Department Dept Phone 05/10/2020 10:20 AM Maury Duarte MD Cardiology at [facility] Arrive at: Lead Operator Area [phone] 05/31/2020 10:00 AM Mustapha Lemos MD Dermatology at [place] Arrive at: [facility] [address] [phone] Future Orders Complete By Expires Referral to Cardiac Rehab [[id number] Custom] As directed Process Instructions: If no progress note charted, please enter Clinical details in comments. Scheduling Instructions: Questions: My question or request is: s/p PCI. Cardiac rehab at [facility] Discharge References/Attachments None Discussed with MD Sammie Bajwa APRN Pager [phone] 03/17/2020 documented in this encounter Discharge Instructions * Discharge Instructions* Sammie Bourne APRN - 03/17/2020 10:33 AM EST Call your doctor if: Chest pain, dyspnea, pain or swelling in legs occurs. If you have non-emergent questions, prior to your follow-up visit please call one of the fishing captain on Sunday-Sunday between the hours of 8A- 5PM. Cardiology Clinic number @ [phone] If off hours contact the cardiac fellow on- call. Hospital Serging Machine Operator Automatic can help you. Hospital phone number [phone] Return to work: 1 week Drivin hours post catheterization Follow up Appointments: Doctor Where Phone # Date Time Tr Hendrix DO [address] [facility] [address] 03/23/2020 9:15am Zohreh Mcduffie MD [facility] 04/02/2020 9:20am documented in this encounter Medications [...] of this letter. Karen Almazan RN, MSN Energy Auditor - Cardiology Office of Care Management Pager: [phone] Work * Maury Duarte MD - 03/17/2020 9:23 AM EST Images from the original note were not included. Inpatient Cardiology Progress Note Patient Name: Storm Nolasco Service: ATHLETE MARKETING AGENT / PA Responsible Attending: Maury Duarte MD Reason for continued hospitalization: Accelerating angina S/p LHC Active Problems: Active Hospital Problems Diagnosis ??? Accelerating angina Resolved Hospital Problems No resolved problems to display. Interval History: No acute events overnight. S/p LHC with PCI to LCx. DRUG ABUSE COUNSELOR of RCA. Chest pain free this morning. [...] ??? heparin (porcine) infusion 1,000 Units/hr (03/16/20 0429) PRN Meds:nitroGLYcerin, heparin (porcine) AND heparin (porcine) [...] repair in 05/2019, former smoker??who presented to [facility] with??accelerating angina in the setting of an abnormal exerciseMPI. ??Echocardiogram consistent with a mildly reduced EF to 40% and apical/anterior WMAs. ??LHC with DRUG ABUSE COUNSELOR of RCA and s/p PCI to LCx [...] ?? FULL CODE Discussed with MD Sammie Bajwa, STEEL ENGRAVER Pager [phone] 03/17/2020 CARDIOLOGY ATTENDING NOTE Patient: Storm Nolasco Date of Service: 03/17/2020 Date of Admission: 03/15/2020 Length of Stay Hospital Day 2 days Please see the above note by??Sammie Bourne, STEEL ENGRAVER??for details. I have interviewed and examined the [...] with anterior/apical WMA. Coronary angiography with RCA DRUG ABUSE COUNSELOR and proximal LCx lesion, s/p PCI. He is now chest pain free. On GDMT including DAPT, BB, ARB. Cardiac rehab consult. Stable for discharge today. Rest per Ms. Bourne.?? Maury Duarte MD, MPH, RPVI, [facility] Pager [phone] Cardiovascular Faculty NeuropsychologistPublic [place]er[place] [address] * Bella Esquivel RN - 03/16/2020 7:45 PM EST OUTCOME EVALUATION NOTE: OUTCOME SUMMARY: Pt AAOx4, AVSS, SB in 40's-50's, team aware, pt remains asymptomatic. Heparin gtt running this morning. Pt to director of cath lab ~1400 this afternoon, intervention via R wrist, back from director of cath lab with fluids running and TR band in [...] Progress Note Patient Name: Storm Nolasco Service: ATHLETE MARKETING AGENT / PA Responsible Attending: Maury Duarte MD Reason for continued hospitalization: Evaluation and management of accelerating angina Awaiting cardiac catherization Active Problems: Active Hospital Problems Diagnosis ??? Accelerating angina Resolved Hospital Problems No resolved problems to display. Interval History: No acute events overnight. Trops negative. Echo with EF mildly reduced to 40% and apical/anterior WMAs. Awaiting C today. Review of Systems: Review of Systems [...] ??? heparin (porcine) infusion 1,000 Units/hr (03/16/20 6759) PRN Meds:heparin (porcine) AND heparin (porcine) infusion [...] in 05/2019, former smoker who presented to [facility] with accelerating angina in the setting of [...] drip - Echo completed, summary above - [facility] today ?? 2. Hypertension - Admit BP 130/61 - BP: (120-145)/(61-67) - Continue amlodipine 5mg and losartan 25mg ?? 3. HLD - Chol 105, LDL 50 - Continue high intensity statin ?? 4. BPH - Continue terazosin 5mg and oxybutynin 5mg ?? FULL CODE Discussed with MD Sammie Bajwa APRN Pager [phone] 03/16/2020 CARDIOLOGY ATTENDING NOTE Patient: Storm Nolasco [...] Ms. Bourne. Maury Duarte MD, MPH, RPVI, FACC Pager [phone] Cardiovascular Faculty NeuropsychologistPublic Interviewerretail account manager [facility] [place] [address] documented in this encounter H&P Notes * Maury Duarte MD - 03/15/2020 1:20 PM EST Images from the original note were not included. Cardiology Admission H&P Patient Name: Storm Nolasco Date of : 1945 Age: 74 y.o. Hospital Admit Date: 03/15/2020 Inpatient Attending: Maury Duarte MD PCP: Tr Hendrix, DO Presenting Diagnosis/Chief Complaint: Accelerating exertional angina Active Problem List: Active Hospital Problems Diagnosis ??? Accelerating angina Resolved Hospital Problems No resolved problems to display. History of Present Illness: Storm Nolasco is a 74 yo M with HTN, HLD, AAA and b/l common iliac artery repair in 05/2019, former smoker who presented to [facility] with intermittent, exertional chest pressure, relieved with [...] 35.35) performed by Helio Duke MD at [facility] MAIN OR ??? PRO REANEURYSM/GRFT INS, ILIAC Bilateral 06/03/2019 @REPAIR ILIAC ARTERY ANEURYSM (CHANCE, HYPOGASTRIC OR EIA) (WRVU 26.4) performed by Helio Duke MD at [facility] MAIN OR ??? PRO THROMBOENDARTECTMY ABD AORTA N/A 06/03/2019 @ENDARTERECTOMY, ABD. AORTA W OR W/O PATCH GRAFT (WRVU 27.72) performed by Helio Duke MD at [facility] MAIN OR ??? PRO THROMBOENDARTECTMY ILIAC 06/03/2019 @ENDARTERECTOMY, ILIAC W OR W/O PATCH GRAFT (WRVU 24.61) performed by Helio Duke MD at [facility] MAIN OR Significant Family History: No family [...] file Gets together: Not on file Attends latter-day service: Not on file Active member of [...] in 05/2019, former smoker who presented to [facility] with accelerating angina in the setting of [...] Start heparin drip - Echo today - C tomorrow 2. Hypertension - Admit BP 130/61 - Continue amlodipine 5mg and losartan 25mg 3. HLD - Lipid panel pending - Continue high intensity statin 4. BPH - Continue terazosin 5mg and oxybutynin 5mg FULL CODE Discussed with MD Sammie Bajwa APRN Pager [phone] 03/15/2020 CARDIOLOGY ATTENDING NOTE Patient: Storm Nolasco [...] Plan for coronary angiography tomorrow. Rest per Ms. Bourne. Maury Duarte MD, MPH, [facility], [facility] Pager [phone] Cardiovascular Faculty NeuropsychologistPublic Interviewer[place] [address] documented in this encounter Miscellaneous Notes * [...] in the outpatient cardiac rehabilitation program at [facility] was discussed. Patient agrees to a referral [...] Procedure Note: Patient Name: Storm Nolasco : [id number] MR#: [id number] Case Date: 03/16/2020 Serging Machine Operator Automatic: Surgeon(s) and Role: * Fitz Hauser MD - Primary * Delvin Morris DO - Fellow * Elias Berkowitz MD - Fellow * Juan Antonio German MD - Fellow Preoperative diagnosis: ?CAD Postoperative diagnosis: * CAD* Procedure(s) performed: Coronary angio [facility] Stent insertion, coronary Access: right radial A [...] is relieved with rest. Remains NPO since 0001. Remains on a heparin drip at [facility] is therapeutic x2, now tested daily with am labs. Voiding adequate amounts, spontaneously. 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 for research laboratory specialist today Encourage and promote good PO fluid [...] Outcome: Ongoing (Interventions Implemented as Appropriate) 03/15/20 1127 Coping/Psychosocial Plan Of Care Reviewed With patient [...] further details. Sammie Bourne APRN 03/15/2020 Pager [phone] * Initial Assessments - Daylin Josue RN [...] the last 30 days. 03/15/2020: Transfer from: [facility] Last [facility] discharge: 06/10/2019: [facility] Care [facility]. PHONE: [phone] FAX: [phone] RN/CM spoke with [facility]: Pt was discharged from all services: End of 05/2019. Patient receiving hospital care under Inpatient status. Admission order reviewed. Primary Insurance on file: MEDICARE Secondary Insurance on file: [employer] [place] Primary care provider on file: Tr Hendrix DO [phone] Advance Directive on file and Code Status: <no information>, Attempt Cardiopulmonary Resuscitation - Inpatient Patient does not have advanced directives. Education provided and surrogacy reviewed. If AD's have not been completed pts Artur Dykes would be surrogate decision maker per [place] surrogate decision making law. Any patient receiving care at [facility] must abide by [place] law. The hierarchy for surrogate decision making [...] (i) The agent with financial power of document review attorney or a conservator appointed in accordance with RSA 464-A. (j) The guardian of the patient???s estate. Patient???s Functional Status: Living Situation:lives in own home, indep with all needs, [place] [phone] Supports : Pt is , lives alone, [...] drive him to home, when medically ready. coal washer/Bronze Plater will continue to follow patient???s progress and remain available if situation changes for coordination of care, psychosocial support and/or discharge planning. documented in this encounter Plan of Treatment Upcoming Encounters Date Type Department Care Team (Late st Contact Info) Description 06/20/2024 10:00 AM EST Office Visit Dermatology at [place] [address] [facility] [place] [address] Mustapha Lemos MD [address] [facility] [address] Scheduled Referrals Name Type Priority Associated Diagnoses Orde r Schedule Referral to Cardiac Rehab Outpatient Referral Routine S/P coronary artery stent placement Ordered: 03/17/2020 documented as of this encounter Procedures Procedure Name Priority Date/Time Associated Diagnosis Comments BMP W/FASTING GLUCOSE Routine 03/17/2020 8:30 AM EST HEMOGRAM Routine 03/17/2020 8:30 AM EST DIFFERENTIAL, AUTOMATED Routine 03/17/20 20 8:30 AM EST HC CBC,PLT & AUTO DIFF Routine 0 8:30 AM EST EKG 12-LEAD Routine 03/17/2020 7:12 AM EST Accelerating angina EKG 12-LEAD Routine 03/16/2020 4:21 PM EST Accelerating angina CARDIAC CATHETERIZATION Routine 03/16/20 20 4:05 PM EST EKG 12-LEAD Routine 03/16/2020 7:17 AM EST Accelerating angina HC VENIPUNCTURE STAT 03/16/2020 3:55 AM EST BMP W/FASTING GLUCOSE Routine 03/16/2020 3:55 AM EST HEMOGRAM Routine 03/16/2020 3:55 AM EST DIFFERENTIAL, AUTOMATED Routine 03/16/20 3:55 AM EST HC CBC,PLT & AUTO [...] PM EST Accelerating angina RAPID COVID-19 PCR ([facility]/APD/NL) Routine 03/15/2020 2:14 PM EST documented in this encounter Results * Differential, Automated (03/17/2020 8:30 AM EST) Neutrophils % 76.3 % [facility] Neutr Abs (ANC) 5.37 1.70 - 6.10 x10(3)/[facility] Lymphocytes % 14.4 % [facility] Lymphocytes Abs 1.0 0.9 - 3.2 x10(3)/[facility] Monocytes % 7.0 % [facility] Monocyte Abs 0.5 0.3 - 0.9 x10(3)/[facility] Eosinophils % 1.6 % [facility] Eosinophils Abs 0.1 0.0 - 0.4 x10(3)/[facility] Basophils % 0.4 % [facility] Basophils Abs 0.0 0.0 - 0.1 x10(3)/[facility] Immature Gran % 0.30 % [facility] Comment: Immature granulocytes(IG's)percentage and absolute count [...] Lab Sammie Bourne APRN HEMATOLOGY ORDERAB LES [facility] [place] [address] * (ABNORMAL) Hemogram (03/17/2020 8:30 AM EST) WBC 7.0 4.0 - 9.5 x10(3)/[facility] RBC 4.21(L) 4.58 - 5.54 x10(6)/[facility] Hemoglobin 13.7 13.7 - 16.5 gm/dL [facility] Hematocrit 39.7(L) 40.5 - 48.5 % [facility] MCV 94.3(H) 82.9 - 93.1 [facility] MCH 32.5(H) 27.5 - 32.1 pg [facility] MCHC 34.5 32.0 - 35.7 gm/dL [facility] Platelets 157 145 - 357 x10(3)/[facility] RDWSD 43.6 36.0 - 45.0 [facility] RDWCV 12.6 11.4 - 13.8 % [facility] MPV 10.3 7.6 - 12.9 [facility] nRBC % Auto 0.0 % [facility] nRBC Abs Auto 0.000 0.000 - 0.000 x10(3)/[facility] Blood specimen (specimen) 03/17/2020 8:30 AM EST 03/17/2020 8:42 AM EST Narrative Resulting Agency Comment Spec In Lab Sammie Bourne APRN HEMATOLOGY ORDERAB LES [facility] [place] [address] * (ABNORMAL) BMP w/fasting Glucose (03/17/2020 8:30 AM EST) Glucose Fasting 124(H) 65 - 99 mg/dL [facility] Comment: ?Fasting* Glucose Interpretive Criteria Normal [...] of Diabetes Mellitus, Position Statement from the [place] [employer]. ??Diabetes Care, Volume 33, Supplement 1, Apr 2009 BUN 19 10 - 20 mg/dL [facility] Creatinine 0.92 0.80 - 1.50 mg/dL [facility] Sodium 136 135 - 145 mmol/L [facility] Potassium 4.1 3.5 - 5.0 mmol/L [facility] Comment: Please note: ??Patients with WBC >100,000 may have falsely elevated Potassium levels. ??For accurate Potassium quantification in these patients send serum separator tube (gold top) for subsequent determinations. ??Contact the Clinical Chemistry Laboratory if there are any questions. Chloride 105 98 - 107 mmol/L [facility] CO2 21(L) 22 - 31 mmol/L [facility] Anion Gap 10 5 - 15 mmol/L [facility] Calcium 9.0 8.5 - 10.5 mg/dL [facility] Estimated GFR 82 >=60 mL/min/1. 73 m?? [facility] Comment: The eGFR was calculated using the CKD-EPI equation. As with all creatinine based estimates of kidney function, eGFR values calculated with the CKD-EPI equation are not accurate in patients with acute kidney failure, extremes of body mass or the acutely ill. http://norin.tv/DHMCnkf eGFR 95 >=60 mL/min/1. 73 m?? [facility] Comment: The eGFR was calculated using the CKD-EPI equation. As with all creatinine based estimates of kidney function, eGFR values calculated with the CKD-EPI equation are not accurate in patients with acute kidney failure, extremes of body mass or the acutely ill. http://norin.tv/DHMCnkf Blood specimen (specimen) 03/17/2020 8:30 AM EST 03/17/2020 8:42 AM EST Narrative Resulting Agency Comment Spec In Lab Sammie E Steffen STEEL ENGRAVER CHEMISTRY ORDERABL ES Performing Organization Address [facility] Co de Phone Number [facility] [place] [phone] * EKG 12 Lead (03/17/2020 7:12 AM EST) Ventricular rate 49 BPM MUSE SYSTEM Atrial Rate 49 BPM MUSE SYSTEM P-R Interval 172 ms MUSE SYSTEM QRS Duration 158 ms MUSE SYSTEM Q-T Interval 514 ms MUSE SYSTEM QTC Calculated (Bezet) 464 ms MUSE SYSTEM Calculated P [place] 35 degrees MUSE SYSTEM Calculated R [place] 2 degrees MUSE SYSTEM Calculated T [place] 36 degrees MUSE SYSTEM INTERPRETATION Sinus bradycardia Left bundle branch block Abnormal ECG When compared with ECG of 16-MAR-2020 16:21, No significant change was found I personally reviewed the tracing and edited the fellows interpretation Confirmed by fellow Enrico Holloway ([id number]) on 03/17/2020 9:54:05 AM Confirmed by Rupa Monroe ([id number]) on 03/17/2020 4:46:45 PM MUSE SYSTEM 03/17/2020 7:12 AM EST 03/17/2020 4:46 PM EST Sammie Javier Steffen STEEL ENGRAVER ECG ORDERABLES Performing Organization Address [facility]/ZIP Co de Phone Number MUSE SYSTEM * EKG 12 Lead (03/16/2020 4:21 PM EST) Ventricular rate 49 BPM MUSE SYSTEM Atrial Rate 49 BPM MUSE SYSTEM P-R Interval 186 ms MUSE SYSTEM QRS Duration 154 ms MUSE SYSTEM Q-T Interval 518 ms MUSE SYSTEM QTC Calculated (Bezet) 467 ms MUSE SYSTEM Calculated P [place] 25 degrees MUSE SYSTEM Calculated R [place] -30 degrees MUSE SYSTEM Calculated T [place] -6 degrees MUSE SYSTEM INTERPRETATION Sinus bradycardia Left axis deviation Left bundle branch block Abnormal ECG When compared with ECG of 16-MAR-2020 07:17, No significant change was found Confirmed by Rupa Monroe ([id number]) on 03/16/2020 5:16:41 PM MUSE SYSTEM 03/16/2020 4:21 PM EST 03/16/2020 5:16 PM EST Maury Duarte MD ECG ORDERABLES MUSE SYSTEM * CARDIAC CATHETERIZATION (03/16/2020 4:05 PM EST) Anatomical Region Laterality Modality Other Narrative 03/17/2020 7:54 AM EST ?[facility] ? Cardiac Catheterization/Intervention Report ? Patient Name: Juan C Nolascoluly Cruz. ? Procedure Date: 03/16/2020 ? A #: [id number] ? Primary Physician: Murtaza, Fitz T ? Case #: [id number] ? File Name: [id number] ? Catheterization Order Number: [id number] ? [facility] ? Final Report [place], [place] ? Patient Name: ? Storm Nolasco ? ID#: ?[id number] ? : ?1945 ? Procedure Date: ? March 16, 2020 ?Case #: ? [id number] ? Room: ? 6 ? Case Physician: [...] was designated as ASA Class III. The CSHA clinical ?frailty scale is 5: Mildly Frail. [...] procedure was Urgent. The indication for ?the director of cath lab visit is new onset angina less than [...] 4.0 guiding catheter and a 3.5 Fr [facility] [place] [address] ??20 Mhz. ?Imaging was successful. ??Image [...] may require ?modification of this regimen. Consult [facility] Interventional Cardiology for ?questions. ?This patient has [...] against any medical treatment. Consult ?http://tools.acc.org/DAPTriskapp/#!/content/calculator/ or [facility] ?Interventional Cardiology for questions. ? Conclusions: ?* [...] Procedure Note Fitz Hauser MD - 03/17/2020 [facility] Cardiac Catheterization/Intervention Report Patient Name: Storm Nolasco Procedure Date: 03/16/2020 A #: [id number] Primary Physician: Fitz Hauser Case #: [id number] File Name: [id number] Catheterization Order Number: [id number] [facility] [place] Patient Name: Storm Nolasco ID#:[id number] :1945 Procedure Date: March 16, 2020 Case [...] was designated as ASA Class III. The HAclinical frailty scale is 5: Mildly Frail. Diagnostic Tests: Prior Coronary Angiography: LV ejection fraction within 6 months is 39%. Electrocardiography: EKG was assessed by ECG. EKG was Abnormal. EKG showed other abnormality. Medications Prior to Procedure: Aspirin, Beta Tiana, Calcium Channel Blocking Agent andStatin. Indications for Diagnostic Cath: The priority of the diagnostic procedure was Urgent. The indicationfor the director of cath lab visit is new onset angina less than [...] 4.0 guiding catheter and a 3.5 Fr [facility] [place] [facility] 20 Mhz. Imaging was successful. Image [...] situation mayrequire modification of this regimen. Consult [facility] Interventional Cardiologyfor questions. This patient has a [...] or against any medical treatment.Consult http://tools.acc.org/DAPTriskapp/#!/content/calculator/ or [facility] Interventional Cardiology for questions. Conclusions: * Two [...] (Bezet) 447 ms MUSE SYSTEM Calculated P Waterford 30 degrees MUSE SYSTEM Calculated R [place] -8 degrees MUSE SYSTEM Calculated T [place]ford -41 degrees MUSE SYSTEM INTERPRETATION Sinus bradycardia Left bundle branch block Nonspecific T wave abnormality Abnormal ECG When compared with ECG of 15-MAR-2020 16:38, No significant change was found I personally reviewed the tracing and edited the fellows interpretation Confirmed by fellow Enrico Holloway ([id number]) on 03/16/2020 3:38:41 PM Confirmed by Rupa Monroe ([id number]) on 03/16/2020 5:37:00 PM MUSE SYSTEM 03/16/2020 7:17 AM EST 03/16/2020 5:37 PM EST Sammie Bourne APRN ECG ORDERABLES MUSE SYSTEM * Differential, Automated (03/16/2020 3:55 AM EST) Neutrophils % 66.1 % [facility] Neutr Abs (ANC) 4.77 1.70 - 6.10 x10(3)/[facility] Lymphocytes % 22.3 % [facility] Lymphocytes Abs 1.6 0.9 - 3.2 x10(3)/[facility]OR[facility] Monocytes % 8.2 % [facility] Monocyte Abs 0.6 0.3 - 0.9 x10(3)/[facility]OR[facility] Eosinophils % 2.5 % [facility] Eosinophils Abs 0.2 0.0 - 0.4 x10(3)/[facility] Basophils % 0.8 % [facility] Basophils Abs 0.1 0.0 - 0.1 x10(3)/[facility]OR[facility] Immature Gran % 0.10 % [facility] Comment: Immature granulocytes(IG's)percentage and absolute count [...] Lab Sammie Bourne APRN HEMATOLOGY ORDERAB LES [facility] [place] [address] * (ABNORMAL) Hemogram (03/16/2020 3:55 AM EST) WBC 7.2 4.0 - 9.5 x10(3)/[facility] RBC 4.24(L) 4.58 - 5.54 x10(6)/[facility] Hemoglobin 13.6(L) 13.7 - 16.5 gm/dL [facility] Hematocrit 39.8(L) 40.5 - 48.5 % [facility] MCV 93.9(H) 82.9 - 93.1 fL [facility] MCH 32.1 27.5 - 32.1 pg [facility] MCHC 34.2 32.0 - 35.7 gm/dL [facility] Platelets 156 145 - 357 x10(3)/[facility] RDWSD 43.7 36.0 - 45.0 [facility] RDWCV 12.7 11.4 - 13.8 % [facility] MPV 10.3 7.6 - 12.9 [facility] nRBC % Auto 0.0 % [facility] nRBC Abs Auto 0.000 0.000 - 0.000 x10(3)/[facility] Blood specimen (specimen) 03/16/2020 3:55 AM EST 03/16/2020 4:11 AM EST Narrative Resulting Agency Comment Spec In Lab Sammie Bourne APRN HEMATOLOGY ORDERAB LES Performing Organization Address City/State/[facility] Co de Phone Number [facility] [place] [phone] * BMP w/fasting Glucose (03/16/2020 3:55 AM EST) Glucose Fasting 97 65 - 99 mg/dL [facility] Comment: ?Fasting* Glucose Interpretive Criteria Normal [...] of Diabetes Mellitus, Position Statement from the [place] Diabetes Association. ??Diabetes Care, Volume 33, Supplement 1, Apr 2009 BUN 17 10 - 20 mg/dL [facility] Creatinine 0.92 0.80 - 1.50 mg/dL [facility] Sodium 138 135 - 145 mmol/L [facility] Potassium 4.2 3.5 - 5.0 mmol/L [facility] Comment: Please note: ??Patients with WBC >100,000 may have falsely elevated Potassium levels. ??For accurate Potassium quantification in these patients send serum separator tube (gold top) for subsequent determinations. ??Contact the Clinical Chemistry Laboratory if there are any questions. Chloride 106 98 - 107 mmol/L [facility] CO2 24 22 - 31 mmol/L [facility] Anion Gap 8 5 - 15 mmol/L [facility] Calcium 9.1 8.5 - 10.5 mg/dL [facility] Estimated GFR 82 >=60 mL/min/1. 73 m?? [facility] Comment: The eGFR was calculated using the CKD-EPI equation. As with all creatinine based estimates of kidney function, eGFR values calculated with the CKD-EPI equation are not accurate in patients with acute kidney failure, extremes of body mass or the acutely ill. http://norin.tv/[facility] eGFR 95 >=60 mL/min/1. 73 m?? [facility] Comment: The eGFR was calculated using the CKD-EPI equation. As with all creatinine based estimates of kidney function, eGFR values calculated with the CKD-EPI equation are not accurate in patients with acute kidney failure, extremes of body mass or the acutely ill. http://norin.tv/DHnkf Blood specimen (specimen) 03/16/2020 3:55 AM EST 03/16/2020 4:11 AM EST Narrative Resulting Agency Comment Spec In Lab Sammie Bourne APRN CHEMISTRY ORDERABL ES [facility] [place] [address] * Heparin (unfractionated) Level (03/16/2020 3:55 AM EST) Heparin UFH Level 0.35 IU/mL [facility] Comment: Guidelines for therapeutic unfractionated heparin [...] Agency Comment Spec In Lab Sammie Bourne STEEL ENGRAVER HEMATOLOGY ORDERAB LES Performing Organization Address [facility] de Phone Number [facility] [place] [address] * TSH (03/16/2020 3:55 AM EST) [facility] TSH 3.13 0.27 - 4.20 mcIU/mL [facility] Blood specimen (specimen) 03/16/2020 3:55 AM EST 03/16/2020 4:11 AM EST Narrative Resulting Agency Comment Spec In Lab Sammie Bourne STEEL ENGRAVER CHEMISTRY ORDERABL ES Performing Organization Address [facility] de Phone Number [facility] [place] [address] * Hepatic Function Panel (03/16/2020 3:55 AM EST) [facility] Total Protein 6.4 6.1 - 8.0 gm/dL [facility] Albumin 4.0 3.2 - 5.2 gm/dL [facility] AST 24 0 - 39 unit/L [facility] ALT 20 0 - 55 unit/L [facility] Alk Phos 70 40 - 130 unit/L [facility] Total Bilirubin 0.7 0.2 - 1.3 mg/dL [facility] Bili, Direct 0.2 0.0 - 0.3 mg/dL [facility] Blood specimen (specimen) 03/16/2020 3:55 AM EST 03/16/2020 4:11 AM EST Narrative Resulting Agency Comment Spec In Lab Sammie Bourne APRN CHEMISTRY ORDERABL ES [facility] [place] [address] * Hemoglobin A1c (03/16/2020 3:55 AM EST) Hemoglobin A1C 5.2 4.3 - 5.6 % [facility] Comment: Reference Range: 4.3 - 5.6% [...] S67-74 Est Avg Gluc See note mg/dL [facility] Comment: Estimated Average Glucose not appropriate [...] into estimated average glucose values. ??Diabetes Care 2008:31(8):6756-9011. Blood specimen (specimen) 03/16/2020 3:55 AM EST 03/16/2020 4:11 AM EST Narrative Resulting Agency Comment Spec In Lab Sammie Bourne APRN CHEMISTRY ORDERABL ES [facility] [place] [address] * Lipid Panel (Reflex Direct LDL) (03/16/2020 3:55 AM EST) Chol, Total 105 mg/dL [facility] Comment: Lower Risk: <200 mg/dL Average Risk: 200-239 mg/dL Higher Risk: >fn=451 mg/dL Triglycerides 93 mg/dL [facility] Comment: Average Risk/Lower Risk: <150 mg/dL Borderline High Risk: 150-199 mg/dL High Risk: 200-499 mg/dL Very High Risk: >yt=270 mg/dL HDL 36 mg/dL [facility] Comment: Males: ?? Higher Risk: <40 mg/dL Females: ?? HIgher Risk: <50 mg/dL LDL Cholesterol 50 mg/dL [facility] Comment: Lowest Risk: <100 mg/dL Lower Risk: 100-129 mg/dL Borderline High Risk: 130-159 mg/dL High Risk: 160-189 mg/dL Very High Risk: >nt=137 mg/dL Chol/HDL Ratio 2.9 ratio [facility] Lipid Interpretation See Note [facility] Comment: Lipid management should be guided by a patient? s ASCVD risk, goals and preferences. ACC/AHA Guidelines recommend high intensity statin if clinical ASCVD or LDL greater than or equal to 190 mg/dL. http://Credit Coach.com/SZV-CTW-Okkqpdigv Adults aged 40-75 with LDL 70-189 mg/dL should have their 10 year ASCVD risk estimated with the ACC/AHA ASCVD risk statement clerks supervisor http://tools.acc.org/VSQNX-Epbn-Aydrmcvqx/ Statin should be discussed if risk greater [...] Lab Sammie Bourne APRN CHEMISTRY ORDERABL ES [facility] [place] [address] * Heparin (unfractionated) Level (03/15/2020 10:04 PM EST) Heparin UFH Level 0.27 IU/mL [facility] Comment: Guidelines for therapeutic unfractionated heparin [...] Agency Comment Spec In Lab Sammie Bourne STEEL ENGRAVER HEMATOLOGY ORDERAB LES [facility] [place] [phone] * EKG 12 Lead (03/15/2020 4:38 PM EST) Ventricular rate 59 BPM MUSE SYSTEM Atrial Rate 59 BPM MUSE SYSTEM P-R Interval 174 ms MUSE SYSTEM QRS Duration 152 ms MUSE SYSTEM Q-T Interval 476 ms MUSE SYSTEM QTC Calculated (Bezet) 471 ms MUSE SYSTEM Calculated P [place]ford 37 degrees MUSE SYSTEM Calculated R [place] -15 degrees MUSE SYSTEM Calculated T [place] 38 degrees MUSE SYSTEM INTERPRETATION Sinus bradycardia with sinus arrhythmia Left bundle branch block Abnormal ECG When compared with ECG of 06-JUN-2019 03:57, Sinus rhythm has replaced Atrial fibrillation Vent. rate has decreased BY ??79 BPM Confirmed by Rupa Monroe ([id number]) on 03/15/2020 6:05:11 PM MUSE SYSTEM 03/15/2020 4:38 PM EST 03/15/2020 6:05 PM EST Sammie Bourne STEEL ENGRAVER ECG ORDERABLES MUSE SYSTEM * Differential, Automated (03/15/2020 3:49 PM EST) Neutrophils % 70.6 % [facility] Neutr Abs (ANC) 5.75 1.70 - 6.10 x10(3)/[facility] Lymphocytes % 18.9 % [facility] Lymphocytes Abs 1.5 0.9 - 3.2 x10(3)/[facility] Monocytes % 7.5 % [facility] Monocyte Abs 0.6 0.3 - 0.9 x10(3)/[facility] Eosinophils % 2.3 % [facility] Eosinophils Abs 0.2 0.0 - 0.4 x10(3)/[facility] Basophils % 0.5 % [facility] Basophils Abs 0.0 0.0 - 0.1 x10(3)/[facility] Immature Gran % 0.20 % [facility] Comment: Immature granulocytes(IG's)percentage and absolute count [...] Lab Sammie Bourne APRN HEMATOLOGY ORDERAB LES [facility] [place] [address] * (ABNORMAL) Hemogram (03/15/2020 3:49 PM EST) WBC 8.2 4.0 - 9.5 x10(3)/[facility] RBC 4.44(L) 4.58 - 5.54 x10(6)/[facility] Hemoglobin 14.4 13.7 - 16.5 gm/dL [facility] Hematocrit 41.6 40.5 - 48.5 % [facility] MCV 93.7(H) 82.9 - 93.1 fL [facility] MCH 32.4(H) 27.5 - 32.1 pg [facility] MCHC 34.6 32.0 - 35.7 gm/dL [facility] Platelets 165 145 - 357 x10(3)/[facility] RDWSD 43.4 36.0 - 45.0 fL [facility] RDWCV 12.6 11.4 - 13.8 % [facility] MPV 10.3 7.6 - 12.9 fL [facility] nRBC % Auto 0.0 % [facility] nRBC Abs Auto 0.000 0.000 - 0.000 x10(3)/[facility] Blood specimen (specimen) 03/15/2020 3:49 PM EST 03/15/2020 4:14 PM EST Narrative Resulting Agency Comment Spec In Lab Sammie Bourne APRN HEMATOLOGY ORDERAB LES Performing Organization Address City/State/[facility] Co de Phone Number [facility] [place] [address] * Troponin (03/15/2020 3:49 PM EST) Troponin-T <0.01 0.00 - 0.00 ng/mL [facility] Comment: The 99th percentile for Troponin T is less than 0.01 ng/mL, any detectable cTnT concentration using this assay should be considered elevated. According to the third universal definition of myocardial infarction the following criteria with a clinical presentation consistent with acute myocardial ischemia meets the diagnosis for a myocardial infarction (LA). Detection of a rise and/or fall of cTnT, with at least one value greater than the 99th percentile (> or = 0.01) and with at least one of the following ?? Symptoms of ischemia ?? New or presumed new significant FO-[id number]-R wave (ST-T) changes or new left bundle [...] additional sample may be indicated. Reference: Third [place] Definition of Myocardial Infarction. Journal of the [place] College of Cardiology 2012;60:1581-98 Blood specimen (specimen) 03/15/2020 3:49 PM EST 03/15/2020 4:14 PM EST Narrative Resulting Agency Comment Spec In Lab Sammie Bourne STEEL ENGRAVER CHEMISTRY ORDERABL ES Performing Organization Address [facility] de Phone Number [facility] [place] [address] * Heparin (unfractionated) Level (03/15/2020 3:49 PM EST) Heparin UFH Level <0.04 IU/mL [facility] Comment: Guidelines for therapeutic unfractionated heparin [...] Agency Comment Spec In Lab Sammie Bourne STEEL ENGRAVER HEMATOLOGY ORDERAB LES Performing Organization Address [facility] de Phone Number [facility] [place] [address] * ECHO COMPLETE W CONTRAST (03/15/2020 3:33 PM EST) EF 40 HEARTLAB SYSTEM Anatomical Region Laterality Modality Other 03/15/2020 Narrative 03/15/2020 4:18 PM EST Procedure: ?Transthoracic Echocardiogram Patient: ?ELISE Cruz ?? (Age): 1945(74y) Med Rec#: ? [id number] ?Sex: ?M ? Site Loc: ? [facility] ?Ht / Wt: ??175(cm)/91(kg) Pt. Loc: ?Adult Floor ? BSA: ?2.07 Study Date: ?? 03/15/2020 ?Pt. Type: Inpatient Tape: ? Referring: GRISELDA Reading: Valdemar Santiago ([id number]) Wildlife Officer: Martin Matthew [facility] Diagnosis: *Unstable angina (I20.0) BP: ? [...] Vmax ?0.57 ? m/sec ? MV deceleration [id number] ?msec ? MV A-wave Vmax ?0.9 ?m/sec [...] ? Mid-Inferior ?Normal ? Mid-Inferoseptal ?Normal ? [place]-Septal ? Hypokinetic ? [place]-Anterior ? Hypokinetic ? [place]-Lateral ?Hypokinetic ? [place]-Inferior ? Normal ? [place]-Tip ?Hypokinetic ? This report has been electronically signed by: Valdemar Santiago MD ? 03/15/2020 16:17:44 Images reviewed and interpretation verified [facility] Cardiac [facility] Procedure Note Valdemar Santiago MD - 03/15/2020 Procedure: Transthoracic Echocardiogram Patient: ELISE PAGE(Age): 1945(74y) Med Rec#: [id number] Sex: M Site Loc: [facility] Ht / Wt: 175(cm)/91(kg) Pt. Loc: Adult Floor BSA: 2.07 Study Date: 03/15/2020 Pt. Type: Inpatient Tape: Referring: GRISELDA Reading: Valdemar Santiago ([id number]) Wildlife Officer: Martin Matthew [facility] Diagnosis: *Unstable angina (I20.0) BP: 130/61 SUMMARY: [...] MV E-wave Vmax 0.57 m/sec MV deceleration [id number] msec MV A-wave Vmax 0.9 m/sec MV [...] Hypokinetic Mid-Posterolateral Normal Mid-Inferior Normal Mid-Inferoseptal Normal [place]-Septal Hypokinetic [place]-Anterior Hypokinetic [place]-Lateral Hypokinetic [place]-Inferior Normal [place]-Tip Hypokinetic This report has been electronically signed by: Valdemar Santiago MD 03/15/2020 16:17:44 Images reviewed and interpretation verified [facility] Card[facility] Sammie Bourne STEEL ENGRAVER ECHO ORDERABLES * COVID-19 PCR (03/15/2020 2:14 PM EST) SARS-CoV-2 RNA PCR Not Detected Not Detected [facility] Comment: This result should be interpreted [...] using the Simplexa COVID-19 Direct Assay by [employer] as authorized by the FDA issued Emergency [...] of Pathology and Laboratory Medicine at [facility], certified under the Clinical Laboratory Improvement Amendments [...] Information for Healthcare Professionals (https://www.cdc.gov/coronavirus/2019-ncov/hcp/index.html). SARS-CoV-2 Source [employer] Swab MA RY [facility] Nasopharyngeal swab (specimen) 03/15/2020 2:14 PM EST 03/15/2020 2:35 PM EST Comment:Symptoms->Surveillan ce Narrative Resulting Agency Comment Spec In Lab Sammie Bourne STEEL ENGRAVER MICROBIOLOGY - GEN ERAL ORDERABLES Performing Organization Address City/State/[facility] Co de Phone Number [facility] [place] [address] documented in this encounter Visit Diagnoses Diagnosis Accelerating angina Intermediate coronary syndrome S/P coronary artery stent placement Postsurgical percutaneous transluminal coronary angioplasty status Accelerating angina Intermediate coronary syndrome documented in this encounter Admitting Diagnoses Diagnosis Accelerating [...] Given 03/17/2020 10:00 AM EST 75 mg heparin (porcine) 50 units/mL in sodium chloride [...] than 0.1 IU/mL: Bolus 4,000 units, Routine losartan (Cozaar) tablet 25 mg 25 mg, Oral, DAILY, First dose on Sun03/16/20 at 0930, Until Discontinued, Routine Given 03/17/2020 10: 05 AM EST 25 mg Given 03/16/2020 9:06 AM EST 25 mg metoprolol succinate XL (Toprol-XL) tablet 12.5 mg 12.5 mg, Oral, DAILY, First dose on Sun03/17/20 at 0900, Until Discontinued, DO NOT CRUSH OR OPEN, Routine Given 03/17/2020 10:01 AM EST 12.5 mg metoprolol tartrate (Lopressor) tablet 12.5 mg 12.5 mg, Oral, EVERY 12 HOURS SCHEDULED, First dose on Sun03/15/20 at 2100, Until Discontinued, Hold for HR <50bpm, Routine Given 03/16/2020 8:08 AM EST 12 .5 mg Given 03/15/2020 9:16 PM EST 12.5 mg nitroGLYcerin (Nitrostat) disintegrating tablet 0.4 mg [...] to 72 hours., Recovery (Recovery-Hospital Unit), Routine oxybutynin XL (Ditropan-XL) tablet 5 mg 5 mg, Oral, NIGHTLY, First dose on Sun03/16/20 at 2100, Until Discontinued, DO NOT CRUSH OR OPEN, Routine Given 03/16/2020 8:51 PM EST 5 mg perflutren lipid microspheres (DEFINITY) injection 1.5 mL 1.5 mL, Intravenous, ONCE PRN, 1 dose, Starting on Sun03/15/20 at 1533, Until Sun03/15/20 at 1400, PRN, Routine Given 03/15/2020 2:00 PM EST 1.5 mLs sodium chloride 0.9% infusion 150 mL/hr, Intravenous, CONTINUOUS, Starting on Sun03/16/20 at 1645, Until Sun03/16/20 at 2044, Recovery (Recovery-Hospital Unit) [facility] 03/16/2020 4:30 PM EST 150 mL/hr 150 mL/hr terazosin (Hytrin) capsule 5 mg 5 mg, Oral, NIGHTLY, First dose on Sun03/16/20 at 2100, Until Discontinued, Routine Given 03/16/2020 8:53 PM EST 5 mg documented in this encounter Active and [...] Admin Adt) 1000 (Given - Provider: Gabriela Reeder RN) aspirin chewable tablet 81 mg 81 mg, Oral, DAILY, First dose on Sun03/16/20 at 0930, Until Discontinued, Routine 0906 (Given - Provider: Bella Esquivel RN)1413 (MAR Hold - Provider: Admin Adt - Reason: Transfer to a Procedural area)1708 (MAR Unhold - Provider: Admin Adt) 1000 (Given - Provider: Gabriela Reeder RN) atorvastatin (Lipitor) tablet 80 mg 80 [...] 25 mg, Oral, DAILY, First dose on 11/17/20 at 0930, Until Discontinued, Routine 09 (Given - Provider: Bella Esquivel, KEVIN)1413 ([facility] Hold - Provider: Admin Adt - Reason: Transfer to a Procedural area)170 ([facility] Unhold - Provider: Admin Adt) 1005 (Given - Provider: Gabriela Reeder, KEVIN) metoprolol succinate XL (Toprol-XL) tablet 12.5 mg 12.5 mg, Oral, DAILY, First dose on Sun03/17/20 at 0900, Until Discontinued, DO NOT CRUSH OR OPEN, Routine 1001 (Given - Provider: Gabriela Reeder, KEVIN) metoprolol tartrate (Lopressor) tablet 12.5 mg (CANCELED) 12.5 mg, Oral, EVERY 12 HOURS SCHEDULED, First dose on Sun03/15/20 at 2100, Until Discontinued, Hold for HR <50bpm, Routine 2115 (Given - Provider: Katina Shaffer RN) 0808 (Given - Provider: Bella Esquivel, KEVIN)1413 ([facility] Hold - Provider: Admin Adt - Reason: Transfer to a Procedural area)1707 ([facility] Unhold - Provider: Admin Adt)2099 (Not Given - Provider: Abelardo Buck RN - Reason: Order parameters not met - Comment: HR 45 while awake) oxybutynin XL (Ditropan-XL) tablet 5 mg 5 mg, Oral, NIGHTLY, First dose on Sun03/16/20 at 2100, Until Discontinued, DO NOT CRUSH OR OPEN, Routine 1413 ([facility] Hold - Provider: Admin Adt - Reason: Transfer to a Procedural area)170 ([facility] Unhold - Provider: Admin Adt)2050 (Given - Provider: Abelardo Buck, KEVIN) terazosin (Hytrin) capsule 5 mg 5 mg, Oral, NIGHTLY, First dose on Sun03/16/20 at 2100, Until Discontinued, Routine 1413 ([facility] Hold - Provider: Admin Adt - Reason: Transfer to a Procedural area)170 ([facility] Unhold - Provider: Admin Adt)2052 (Given - [...] Shaffer RN)2223 (Rate/Dose Verify - Provider: Katina Shaffer, KEVIN) 0429 (Rate/Dose Verify - Provider: Katina Shaffer RN)1413 (JUN Hold - Provider: Admin Adt - Reason: [...] Routine 1532 (Given - Provider: Artur Welch, RN) fentaNYL 50 mcg/mL multi-dose injection (CANCELED) ONCE [...] Routine documented in this encounter Care Teams Colorer Hides And Skins Relationship Specialty Start Date End Date Tr Hendrix DO [facility] [place] [address] PCP - General Family Medicine 05/24/17 documented as of this encounter
--- OUTSIDE RECORDS SUMMARY | 2023-11-13 09:22 | XMS_ITS | Encounter Summary ---
[place] [address] Care Team Providers Care Manager Video Games Name Role Phone Tr Hendrix DO Primary Care Provider [phone] Reason for Visit * Reason Comments Prior Authorization Entresto 24-26mg Tab lets Encounter Details Date Type Department Care Team (Late st Contact Info) Description 05/11/2020 Specialty [place] [address] Kary Chambers Social History Tobacco Use Types Packs/Day Years [...] as of this encounter Progress Notes * Kary Chambers - 05/11/2020 11:59 AM EST [facility], Medication Prior Authorization Request Patient: Storm Nolasco Patient : 1945 Patient [place]: [place] [address] (home) Medication Name: ENTRESTO 24 MG-26 MG TABLET Medication ID: [id number] Patient Location: [facility] Patient Location Comment: Medication Strength Frequency Requested: Take one tablet by mouth two times a day. Qty/Day Supply: 60/30 New Start: New to Therapy Diagnosis & ICD-10 Code: HFrEF (heart failure with reduced ejection fraction) I50.20 Subscriber Insurance: [employer] Subscriber Insurance Comment: Fax: Physician: FELICITAS DE LOS SANTOS Physician Comment : PA Status: NO PA REQUIRED Pharmacy: Insurance requirements/notes: None Copay: $481.00 Copay assistance: Patient Assistance Referral Copay assistance comment: $445.00 is going towards patient's deductible, but is $481.00 in total. If copay is not affordable for the patient, the patient can either go through [employer] or can possibly get a few fills through the [employer] as heart failure grants are still op, en. Fillable at [facility]: Insurance mandated Pharmacy: Kary Chambers 05/11/20 12:13 PM documented in this encounter Plan of Treatment Upcoming Encounters Date Type Department Care Team (Late st [facility]) Description 06/20/2024 10:00 AM EST Office Visit Dermatology at [place] [address] [place] [address] Mustapha Lemos MD [address] [facility] [place] [address] documented as of this encounter Visit Diagnoses Not on filedocumented in this encounter Care Teams Manager Video Games Relationship Specialty Start Date End Date Tr Hendrix DO [address] [place] [address] PCP - General Family Medicine 05/24/17 documented as of this encounter
--- OUTSIDE RECORDS SUMMARY | 2023-11-13 09:22 | XMS_ITS | Encounter Summary ---
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 Voiced understanding. documented in this encounter Plan of Treatment Upcoming Encounters Date Type Department Care Team (Late st Contact Info) Description 06/20/2024 10:00 AM EST Office Visit Dermatology at [address] [address] Mustapha Lemos MD [address] [place] [address] documented as of this encounter Visit Diagnoses Not on filedocumented in this encounter Care Teams Document Reviewer Relationship Specialty Start Date End Date Tr Hendrix DO [address] [place] [address] PCP - General Family Medicine 05/24/17 documented as of this encounter
--- OUTSIDE RECORDS SUMMARY | 2023-11-13 09:22 | XMS_ITS | Encounter Summary ---
[place] [address] Care Team Providers Care Speech Communication Professor Name Role Phone Tr Hendrix DO Primary Care Provider [phone] Reason for Visit * Reason Onset Date Comments Medication Refill 05/13/2020 Encounter Details Date Type Department Care Team (Late st Contact Info) Description 05/11/2020 Refill Cardiology at [address] [phone] Sen Ortega, supervisor phosphorus processing Refill Social History Tobacco Use Types Packs/Day [...] encounter Miscellaneous Notes * Telephone Encounter - Masoud Scott RPH - 05/13/2020 12:41 PM EST Specialty Pharmacy Referral; Masoud Scott RPH Transfer of Services [address] [place] [address] Telephone Information: Work Phone Not on file. The [facility] has received a prescription for Entresto for patient Mr. Storm Nolasco 74 y.o. (1945). Due to a mandate from the patient's insurer, the prescription needs to be filled with [facility]. We spoke to patient to notify of this change and to provide number to reach then filling pharmacy. A copy of patient's medication profile was offered to the accepting pharmacy. Additional instructions provided to patient about transfer: no The patient has been advised to call the - Specialty Pharmacy at [phone] with any questions or concerns on this referral. Thank you, Masoud Scott RPH 05/13/20 12:41 PM Patient understands no changes to current drug regimen were made at this time. * Addendum Note - Sen Cabrera RN - 05/11/2020 3:49 PM ESTAddended by: SEN CABRERA on: 05/11/2020 03:49 PM Modules accepted: Orders * Telephone Encounter - Sen Cabrera RN - 05/11/2020 3:21 PM EST Pt RTC to me and advised that he spoke with [employer] and his insurance and he wishes to have the Entresto prescription sent to [facility] for filling. [facility] has given the pt a quote of $538 for a 90 day supply which he is willing to pay out of pocket for this medication. Pt is advised that he will need to stop his Losartan 2 days ahead of starting the Entresto. New Entresto Start Entresto 24-26 mg po bid. Starting dose on 2 days after he receives medication from mail order pharmacy and stops his Losartan 48 hrs prior to starting Entresto. Teaching done on 05/11/20 Pt to monitor weights, BP/HR daily. Call clinic with c/o light headedness, dizziness, low BP, chest discomf and/or with any questions/concerns call if patient's weight goes up 2 lbs in a day, 5 lbs in a week or if patient notices any swellingin his lower extremities and/or abdomen. Stop Lazaro/Arb (Losartan) on (48 hours prior to Entresto start). BMP done 1 week after start on Getting labs done at : [facility] Pt will call back to clinic once he has received the Entresto to let us know what date he will be starting it. Pt able to perform teach back to ensure understanding of medication and what to monitor and side effects to be aware. No further questions. Will update Dr. Duarte and Team nurse Faby Good RN. * Telephone Encounter - Sen Cabrera RN - 05/11/2020 2:20 PM EST RTC to pt re: Entresto Co-Pay cost. Reviewed with pt what the out of pocket cost is at $481.00 $445.00 of which is counted towards his deductible. Pt is also made aware of both the MAP program and the [employer] as two possible alternative payment opportunities. Pt states that he wants to speak withhis insurance company again to find out; 1) what his total yearly deductible is ; and 2) how much [facility] is charging for a Ninety day supply. Pt will call me back with his decision later today or tomorrow. Pt was provided with my direct lineto reach me back. documented in this encounter Plan of Treatment Upcoming Encounters Date Type Department Care Team (Late st Contact Info) Description 06/20/2024 10:00 AM EST Office Visit Dermatology at [place] [address] [place] [address] Mustapha Lemos MD [address] [place] [address] documented as of this encounter Visit Diagnoses Not on filedocumented in this encounter Care Teams Speech Communication Professor Relationship Specialty Start Date End Date Tr Hendrix DO [address] [place] [address] PCP - General Family Medicine 05/24/17 documented as of this encounter
--- OUTSIDE RECORDS SUMMARY | 2023-11-13 09:22 | XMS_ITS | Encounter Summary ---
Author Organization [facility] [place] [address] Care Team Providers Care Cheesemaker Name Role Phone Tr Hendrix DO Primary Care Provider [phone] Encounter Details Date Type Department Care Team (Late st Contact Info) Description 03/15/2020 Telephone Cardiology at [address] [phone] Audelia Blandon, [employer] BUSINESS SEGMENT LEADER [facility] [place] [address] Social History Tobacco Use Types Packs/Day Years [...] encounter Miscellaneous Notes * Telephone Encounter - Audelia Blandon APRN - 03/15/2020 9:29 AM EST 03/15/2020 Storm Nolasco Initial Contact Date: 03/15/2020 Initial contact time: 9:37 AM Referring Provider: Dr. Dahl Patient Location: [facility] Past Medical History: HTN HLD S/p AAA and b/l common iliac artery repair in 05/2019 Former smoker, 50 pack yr hx Presenting Symptoms per OSH: Patient reported intermittent, exertion chest pressure, relieved with rest over the past two months. PCP sent him for an exercise nuclear stress test last week, which was abnormal, showing EF 34% with a fixed apical defect, no definite ischemia, but interpretation was limited by LBBB (not new, documented after AAA repair in 05/2019). Patient was scheduled to see Dr. Mcduffie next week, but presented to the ED today due to chest pressure with minimal exertion (5/10), not entirely relieved with rest (1/10 at rest). He is hemodynamically stable, EKG without acute ischemic changes, first troponin negative. HR 60, BP 153/65, spO2 93% on RA Pertinent Diagnostic Findings: Exercise nuclear stress test: EF 34%, global HK, fixed apical defect, no clear ischemia although interpretation limited due to LBBB EKG: HR 61, SR with PVC, LBBB (not new, present since AAA repair in 05/2019) Troponin negative x1 Electrolytes wnl Hgb 14.3, Plts 172 Cr 1.1, BUN 18 CXR unremarkable OSH Interventions: Aspirin [address] Mcduffie (cardiology at [facility])- recommended transfer for cath Plan: Will accept for transfer for likely cardiac catheterization given symptoms and risk factors. Recommended treating for ACS with heparin and Plavix if patient's pain worsens at rest, troponin trends positive, or if EKG changes develop. Symptoms have been occurring over several months, and exercise nuclear stress test last week showed reduced EF with fixed apical defect, although difficult to interpret given LBBB. - above recommendations were based on my discussion with Dr. Dahl; I have not personally interviewed or examined this patient. YAMILKA Jesus, COOK BOX FILLER-BC, [employer] BUSINESS SEGMENT LEADER [facility] documented in this encounter Plan of Treatment Upcoming Encounters Date Type Department Care Team (Late st Contact Info) Description 06/20/2024 10:00 AM EST Office Visit Dermatology at [place] [address] [place] [phone] Mustapha Lemos MD [address] [facility] [address] documented as of this encounter Visit Diagnoses Not on filedocumented in this encounter Care Teams Cheesemaker Relationship Specialty Start Date End Date Tr Hendrix DO [address] [place] [address] PCP - General Family Medicine 05/24/17 documented as of this encounter
--- OUTSIDE RECORDS SUMMARY | 2023-11-13 09:22 | XMS_ITS | Encounter Summary ---
Author Organization [facility] [place] [address] Care Team Providers Care Server Assistant Name Role Phone Tr Hendrix DO Primary Care Provider [phone] Reason for Visit * Reason Comments Medication Refill Encounter Details Date Type Department Care Team (Late st Contact Info) Description 04/13/2020 Refill Cardiology at [address] [place] [address] Sammie Bourne APRN [facility] [place] [address] Medication Refill Social History Tobacco Use Types [...] 10:00 AM EST Office Visit Dermatology at [place] [address] [facility] [place] [phone] Mustapha Lemos MD [address] [facility] [place] [address] documented as of this encounter Visit Diagnoses Not on filedocumented in this encounter Care Teams Server Assistant Relationship Specialty Start Date End Date Tr Hendrix DO [address] [place] [address] PCP - General Family Medicine 05/24/17 documented as of this encounter
--- OUTSIDE RECORDS SUMMARY | 2023-11-13 09:22 | XMS_ITS | Encounter Summary ---
[place] [address] Care Team Providers Care Electrochemist Name Role Phone Tr Hendrix DO Primary Care Provider [phone] Encounter Details Date Type Department Care Team (Late st Contact Info) Description 05/31/2020 Refill Dermatology at [address] [phone] Yvrose Mcwilliams LPN Social History Tobacco Use [...] AM EST Office Visit Dermatology at [address] [phone] Mustapha Lemos MD [address] [place] [address] DERMATOLOGY [place], [place] [phone] documented as of this encounter Visit Diagnoses Not on filedocumented in this encounter Care Teams Electrochemist Relationship Specialty Start Date End Date Tr Hendrix DO [facility] [address] [place], [place] [address] PCP - General Family Medicine 05/24/17 documented as of this encounter
--- OUTSIDE RECORDS SUMMARY | 2023-11-13 09:22 | XMS_ITS | Encounter Summary ---
Author Organization [facility] Address [facility] [place] [address] Care Team Providers Care Brick Carrier Name Role Phone Ruma Tr Zambrano DO Primary Care Provider [phone] Encounter Details Date Type Department Care Team (Late st Contact Info) Description 05/31/2020 Orders Only Cardiology at [address] [address] Maury Duarte MD [facility] [place] [address] Essential hypertension (Primary Dx) Social History Tobacco Use Types Packs/Day Years [...] 10:00 AM EST Office Visit Dermatology at [place] [address] [place] [phone] Mustapha Lemos MD [address] [facility] [place] [address] documented as of this encounter Results * Basic Metabolic Panel (non-fasting) (08/30/2020 1:43 PM EDT) Glucose Lvl 111 65 - 199 mg/dL [facility] Comment:Diabetes: >=200 mg/d L plus symptoms BUN 20 10 - 20 mg/dL [facility] Creatinine 1.12 0.80 - 1.50 mg/dL [facility] Sodium 141 135 - 145 mmol/L [facility] Potassium 4.4 3.5 - 5.0 mmol/L [facility] Comment: Please note: ??Patients with WBC >100,000 may have falsely elevated Potassium levels. ??For accurate Potassium quantification in these patients send serum separator tube (gold top) for subsequent determinations. ??Contact the Clinical Chemistry Laboratory if there are any questions. Chloride 106 98 - 107 mmol/L [facility] CO2 28 22 - 31 mmol/L [facility] Anion Gap 7 5 - 15 mmol/L [facility] Calcium 9.1 8.5 - 10.5 mg/dL [facility] Estimated GFR 64 >=60 mL/min/1. 73 m?? [facility] Comment: This patient? s estimated glomerular [...] In Lab Maury Duarte MD CHEMISTRY [place] [address] documented in this encounter Visit Diagnoses Diagnosis Essential hypertension- Primary Unspecified essential hypertension documented in this encounter Care Teams Brick Carrier Relationship Specialty Start Date End Date Tr Hendrix DO [address] [place] [address] PCP - General Family Medicine 05/24/17 documented as of this encounter
--- OUTSIDE RECORDS SUMMARY | 2023-11-13 09:22 | XMS_ITS | Encounter Summary ---
[place] [address] Care Team Providers Care Printer Small Print Shop Name Role Phone Tr Hendrix DO Primary Care Provider [phone] Reason for Visit * Reason Comments Follow-up Encounter Details Date Type Department Care Team (Late st Contact Info) Description 01/30/2020 2:30 PM EDT Office Visit Dermatology at [address] [address] Mustapha Lemos MD [address] [facility] [place] [address] Seborrheic dermatitis; History of malignant melanoma; Dermatitis [...] Progress Notes * Mustapha Lemos MD - 01/30/2020 2:30 PM EDT Problem: 1.?Follow-up for yearly skin checkup. 2. 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 ??History of malignant melanoma, right shoulder, June 2010 4. ??History of going up on [place] with frequent sun exposure 5. ??Recalcitrant seborrheic dermatitis Storm follows up concerned about a lesion on his right cheek. It has within the last month reallygrown, become thicker and quite tender to touch palp. Physical examination reveals a hyperkeratotic papule on the right lateral cheek which appears to delgado irritated seborrheic keratosis but possibly an early SCCA versus a verruca. Assessment plan: SCCA verruca versus irritated seborrheic keratosis 1. Today site was anesthetized and removed with shave biopsy 2. Base lightly electrodesiccated 3. Wound care instructions supplies given 4. We will for patient biopsy results in 1 week. Return to clinic in April for his regular skin checkup. Seborrheic dermatitis facial 1. Elidel cream does work well for his chest involvement of the gladis-Derm but not so well for the facial involvement. We will discuss again in April. cc: Tr Hendrix DO documented in this encounter Plan of Treatment Upcoming Encounters Date Type Department Care Team (Late st Contact Info) Description 06/20/2024 10:00 AM EST Office Visit Dermatology at [address] [phone] Mustapha Lemos MD [address] [facility] [place] [address] documented as of this encounter Visit Diagnoses Diagnosis Seborrheic dermatitis Seborrheic dermatitis, unspecified History of malignant melanoma Personal history of malignant melanoma of skin Dermatitis Contact dermatitis and other eczema, due to unspecified cause documented in this encounter Care Teams Printer Small Print Shop Relationship Specialty Start Date End Date Tr Hendrix DO [address] [place] [address] PCP - General Family Medicine 05/24/17 documented as of this encounter
--- OUTSIDE RECORDS SUMMARY | 2023-11-13 09:23 | XMS_ITS | Encounter Summary ---
[place] [address] Care Team Providers Care Verify Rep Name Role Phone Ruma rT Zambrano DO Primary Care Provider [phone] Encounter Details Date Type Department Care Team (Late Contact Info) Description 06/04/2019 11:59 PM EST Anesthesia Event [facility] [place] [phone] Wayne Miller RN Anesthesia Record Procedure Summary Procedure Name Responsible Anesthesiologist Anesthesia Start Time Anesthesia Stop Time Acute Pain Medicine Service (consult) Events No events on file. Meds * Agents No agents on file. * Blood No blood administrations on file. Lines, Drains, and Airways No LDAs on file. documented in this encounter Social History Tobacco Use Types Packs/Day Years [...] 10:00 AM EST Office Visit Dermatology at [place] [address] [place] [address] Mustapha Lemos MD [address] [facility] [place] [address] documented as of this encounter Visit Diagnoses Not on filedocumented in this encounter Care Teams Verify Rep Relationship Specialty Start Date End Date Tr Hendrix DO [address] [place] [address] PCP - General Family Medicine 05/24/17 documented as of this encounter
--- OUTSIDE RECORDS SUMMARY | 2023-11-13 09:23 | XMS_ITS | Encounter Summary ---
[place] [address] Care Team Providers Care Lead Project Engineer Name Role Phone Tr Hendrix DO Primary Care Provider [phone] Reason for Referral * Diagnostic Test (Routine) - Closed Specialty Diagnoses / Procedures Referred By Gloria rubio Referred To Contact Radiology Diagnoses Abdominal aortic aneurysm (AAA) without rupture Procedures CT Angiogram Chest Abdomen Pelvis w Contrast Aliyah Romero PA [facility] [place] [address] [facility] [place] [address] Referral ID Status Reason Start Date Expiration Date V isits Requested Visits Authorized [id number] Closed Specialty Service Requested 06/10/2019 12/08/2020 1 1 Reason for Visit * Auth/Cert Specialty Diagnoses / Procedures Referred By Gloria rubio Referred To Contact Diagnoses AAA (abdominal aortic aneurysm) AAA . Procedures PRO AAA+TRAUMA REPAIR, OPEN, TUBE PROSTH PRO REANEURYSM/GRFT INS, ILIAC @CONVERSION TO OPEN AAA, USING TUBE GRAFT, FOLLOWING FAILED EVG, PLUS REPAIR OF ASSOC. ARTERIAL TRAUMA (WRVU 35.23) @REPAIR ILIAC ARTERY ANEURYSM (CHANCE, HYPOGASTRIC OR EIA) (WRVU 26.4) Referral ID Status Reason Start Date Expiration Date Visits Re quested Visits Authorized [id number] 1 1 Encounter Details Date Type Department Care Team (Latest Contact Info) Description 06/03/2019 5:40 AM EST - 06/10/2019 3:14 PM EST Hospital Encounter [address] [place] [address] Helio Duke MD [facility] [place] [address] Iliac artery aneurysm; Abdominal aortic aneurysm (AAA) without rupture; Pre-op testing; Malignant melanoma of skin; Hyperkalemia; Atrial fibrillation, unspecified type Discharge Disposition: Home with VNA Social History Tobacco Use Types Packs/Day Years [...] Sign Reading Time Taken Comments Blood Pressure 155/81 06/10/2019 1:05 PM EST Pulse 60 06/10/2019 8:03 AM EST Temperature 36.8 ??C (98.2 ??F) 06/10/2019 8:03 AM ES T Respiratory Rate 15 06/10/2019 8:03 AM EST Oxygen Saturation 94% 06/10/2019 1:05 PM EST Inhaled Oxygen Concentration - - Weight 96.4 kg (212 lb 8.4 oz) 06/10/2019 3:18 A M EST Height 175.3 cm (5' 9.02) 06/04/2019 12:[address] Body Mass Index 31.37 06/04/2019 12:00 PM EST documented in this encounter Discharge Summaries * Aliyah Romero PA - 06/10/2019 1:24 PM EST Inpatient - Discharge Summary Patient Name: Storm Olivares Patient Age: 74 y.o. Birthdate: 1945 Admit date: 06/03/2019 Discharge date and time: 06/10/2019 Attending Physician: Helio Duke MD Discharging Provider: NIHARIKA Harrison Discharging Service: Vascular Surgery Operations/Major Procedures: 06/03/2019: Open AAA repair, Aortic and bilateral iliac artery endarterectomies Active Hospital Problems: Active Hospital Problems Diagnosis ??? AAA (abdominal aortic aneurysm) Resolved Hospital Problems No resolved problems to display. Active Non Hospital Problems: Active Non-Hospital Problems Diagnosis ??? Pre-operative exam ??? Iliac artery aneurysm [...] ??? Malignant melanoma of skin ??? Hypertension History of Presentation: Storm Olivares is a 73??yo M here??for follow-up??evaluation of his??AAA??and bilateral iliac aneurysms. ??He has had known AAA for several years which has been followed serially with US. He quit smoking 3 years ago. He denies any abdominal pain, back pain, chest pain, or embolic symptoms. No prior aneurysm intervention. He had normal popliteal artery duplex studies. No family history of aneurysm disease. His Cristel had bad mesenteric ischemia and last month after succumbing to her illness. He takes ASA and statin and is active. No prior CAD. Denies angina. Functionally very healthy without any activity limitations. Denies any prior abdominal surgeries. Hospital Course: On 06/03/19, patient underwent open AAA repair with aortic and bilateral iliac artery endarterectomies. 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 End to end proximal anastomosis, right end to end with EIA, left end to end with iliac bifurcation (Dacron 18x9- rifampin soaked). Small transverse colon serosal tear, imbricated with 3-0 silk suture. Palpable bilateral DP. Patient was admitted to ICU for postop monitoring. He was transferred out of the ICU on POD 1. Post-operatively, patient's Hb trended down likely due to acute blood loss anemia secondary to his recent operative procedure. Patient's NGT was removed bypatient during an episode of confusion on 06/06/19. Infectious work-up was negative and no change in neuro exam, no episodes of altered mental status for remainder of stay. Patient had a rash on his back post-operatively and was evaluated by dermatology. He will complete a 14 day course of augmented betamethasone BID to back rash. He experienced ROBF and diet was slowly advanced, tolerating regulardiet upon discharge. The remainder of his hospital stay was uneventful. He had adequate output following bains removal and pain well controlled with minimal PO medications. Patient worked with PT whorecommend home with VNA. Incision clean and dry without signs of infection. He is medically clearedfor discharge to home for VNA. Patient will follow-up in the clinic in 1 week for an incision site c heck with CTA C/A/P. Day of Discharge Physical Exam: BP 155/81 (BP Location (NBP): Right arm, Patient Position: Lying) Pulse 60 Temp 36.8 ??C (98.2 ??F) (Oral) Resp 15 Ht 175.3 cm (5' 9.02) Wt 96.4 kg (212 lb 8.4 oz) SpO2 94% BMI 31.37 kg/m?? GEN: Alert and appears stated age. Cooperative. In NAD. HEENT: Normocephalic and atraumatic. Neck: Supple, symmetric, trachea midline. CV: Regular rate. Pulm: No evidence of increased work of breathing. Abd: Midline incision c/d/i with mercy in place - no surrounding erythema or drainage. Soft, non-distended, non-tender to palpation. Skin: Color, texture, turgor normal. No rashes or lesions. Neuro: No focal deficits, gross sensory or motor abnormalities. Extremities: Palpable DP and PT pulses bilaterally. Bilateral UE and LE warm and pink. No edema. Nowounds. Important Studies and Lab Data: Labs: Recent Results (from the past 24 hour(s)) BMP w/fasting Glucose Result Value Ref Range Glucose Fasting 110 (H) 65 - 99 mg/dL BUN 28 (H) 10 - 20 mg/dL Creatinine 1.10 0.80 - 1.50 mg/dL Sodium 143 135 - 145 mmol/L Potassium 3.7 3.5 - 5.0 mmol/L Chloride 106 98 - 107 mmol/L CO2 27 22 - 31 mmol/L Anion Gap 10 5 - 15 mmol/L Calcium 8.4 (L) 8.5 - 10.5 mg/dL eGFR 66 >=60 mL/min/1.73 m?? eGFR 76 >=60 mL/min/1.73 m?? Hemogram Result Value Ref Range WBC 8.6 4.0 - 9.5 x10(3)/mcL RBC 2.72 (L) 4.58 - 5.54 x10(6)/mcL Hemoglobin 8.8 (L) 13.7 - 16.5 gm/dL Hematocrit 26.5 (L) 40.5 - 48.5 % MCV 97.4 (H) 82.9 - 93.1 fL MCH 32.4 (H) 27.5 - 32.1 pg MCHC 33.2 32.0 - 35.7 gm/dL Platelets 196 145 - 357 x10(3)/mcL RDWSD 45.8 (H) 36.0 - 45.0 fL RDWCV 13.2 11.4 - 13.8 % MPV 10.7 7.6 - 12.9 fL nRBC % Auto 0.0 % nRBC Abs Auto 0.000 0.000 - 0.000 x10(3)/mcL Differential, Automated Result Value Ref Range Neutrophils % 80.6 % Neutr Abs (ANC) 6.96 (H) 1.70 - 6.10 x10(3)/mcL Lymphocytes % 8.3 % Lymphocytes Abs 0.7 (L) 0.9 - 3.2 x10(3)/mcL Monocytes % 6.8 % Monocyte Abs 0.6 0.3 - 0.9 x10(3)/mcL Eosinophils % 1.9 % Eosinophils Abs 0.2 0.0 - 0.4 x10(3)/mcL Basophils % 0.5 % Basophils Abs 0.0 0.0 - 0.1 x10(3)/mcL Immature Gran % 1.90 % Melanie Gran Abs 0.16 (H) 0.00 - 0.04 x10(3)/mcL BMP w/fasting Glucose Result Value Ref Range Glucose Fasting 145 (H) 65 - 99 mg/dL BUN 25 (H) 10 - 20 mg/dL Creatinine 1.25 0.80 - 1.50 mg/dL Sodium 143 135 - 145 mmol/L Potassium 3.4 (L) 3.5 - 5.0 mmol/L Chloride 107 98 - 107 mmol/L CO2 25 22 - 31 mmol/L Anion Gap 11 5 - 15 mmol/L Calcium 8.4 (L) 8.5 - 10.5 mg/dL eGFR 56 (L) >=60 mL/min/1.73 m?? eGFR 65 >=60 mL/min/1.73 m?? Hemogram Result Value Ref Range WBC 8.8 4.0 - 9.5 x10(3)/mcL RBC 2.74 (L) 4.58 - 5.54 x10(6)/mcL Hemoglobin 9.0 (L) 13.7 - 16.5 gm/dL Hematocrit 26.9 (L) 40.5 - 48.5 % MCV 98.2 (H) 82.9 - 93.1 fL MCH 32.8 (H) 27.5 - 32.1 pg MCHC 33.5 32.0 - 35.7 gm/dL Platelets 226 145 - 357 x10(3)/mcL RDWSD 47.8 (H) 36.0 - 45.0 fL RDWCV 13.5 11.4 - 13.8 % MPV 10.7 7.6 - 12.9 fL nRBC % Auto 0.0 % nRBC Abs Auto 0.000 0.000 - 0.000 x10(3)/mcL Differential, Automated Result Value Ref Range Neutrophils % 83.4 % Neutr Abs (ANC) 7.36 (H) 1.70 - 6.10 x10(3)/mcL Lymphocytes % 7.7 % Lymphocytes Abs 0.7 (L) 0.9 - 3.2 x10(3)/mcL Monocytes % 5.6 % Monocyte Abs 0.5 0.3 - 0.9 x10(3)/mcL Eosinophils % 1.4 % Eosinophils Abs 0.1 0.0 - 0.4 x10(3)/mcL Basophils % 0.2 % Basophils Abs 0.0 0.0 - 0.1 x10(3)/mcL Immature Gran % 1.70 % Melanie Gran Abs 0.15 (H) 0.00 - 0.04 x10(3)/mcL Discharge Condition: Good Discharge to: Home with VNA. Future Appointments and Orders Future Appointments and Orders Future Appointments Provider Department Dept Phone 06/20/2019 9:[address] [facility] CT 4 CAT Scan at [facility] [place] [place] Arrive at: [employer] Area 3Z [phone] Please arrive at the Lab 1 Hour and 15 Minutes prior to your scheduled time if your labs need to betaken. 06/20/2019 10:00 AM Helio Duke MD Vascular Surgery at [facility] [place] [place] Arrive at: [facility] 3V [phone] 05/31/2020 10:00 AM Mustapha Lemos MD Dermatology at [place] Arrive at: [facility] [address] [phone] Future Orders Complete By Expires CT Angiogram Chest Abdomen Pelvis w Contrast [[id number] Custom] 06/17/2019 12/17/2019 Process Instructions: Scheduling Instructions: Comments: Pararenal AAA and bilateral CHANCE aneurysms s/p repair, known L hypogastric aneurysm. Questions: Creatinine to be performed prior to the study?: Hydration prep required?: Contrast allergy prep required?: Where will study be performed?: 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: Self In discussion with the attending physician, it is certified that this patient is under their care and that they, or a Nurse Practitioner,Clinical Nurse specialist or Physician Supervisor Cutting [employer] Boning who is working directly with them, had a face to face encounter that meets the physician face to face encounter requirements with this patient on 06/09/19 The encounter with the patient was in whole, or in part, for the following medical condition, whichis the primary reason for home health care services: AAA repair In discussion with the provider, it is certified that, based on their findings, the following services are medically necessary for home health services. To provide the following care/treatments with the clinical findings supporting the need for services as follows: HOME CARE ORDERS: RN ORDERS:Assess wound or incision, vital signs, cardiopulmonary status, nutrition, hydration, elimination, meds effectiveness and management; reinforce education re health issues Dressing changes HOME HEALTH CARE AGENCY: [facility] PHONE: [phone] FAX: [phone] Start of care: 24 to 48 hours after discharge FOR MEDICARE ONLY: (please delete this section if not Medicare) In discussion with the attending physician, it is certified that the clinical findings support thatthis patient is homebound because absences from home require considerable and taxing effort due to:Medically contraindicated due to infected , draining or complicated wound Restricted mobility due to LE strength and motion due to recent surgery Please note that any additional orders needs or changes will need to be obtained from this patient's PCP: Tr Hendrix, DO [address] [facility] [id number] All A agencies which cover the area of patient's residence have been reviewed, either verbally susana writing, and patient/family have chosen the home health care agency noted Questions: Agency name and contact information: [facility] Patient location post discharge: Home What services are requested: Registered Nurse Start date: Responsible MD post discharge contact info: PCP Anticoagulation & Antiplatelet: Anticoagulation: None Antiplatelet: Aspirin Agent: Aspirin 81 mg daily Indication: Arterial disease Intended Duration: Indefinitely For questions regarding these medications, please contact: Vascular surgery Discharge Medications: Your Medications New Medications Dose Details aspirin 81 mg Chew Take 81 mg by mouth daily. Start taking on: June 11, 2019 81 mg Quantity: 30 tablet Refills: 3 augmented betamethasone dipropionate 0.05 % Crea Commonly known as: DIPROLENE-AF Apply 1 each topically 2 times daily for 14 days. 1 each Quantity: 15 g Refills: 0 Continued medications, unchanged Dose Details amLODIPine 5 mg Tab Commonly known as: Norvasc Take 1 tablet by mouth daily. 5 mg Quantity: 30 tablet Refills: 0 atorvastatin 80 mg Tab Commonly known as: Lipitor Daily Refills: 0 ketoconazole 2 % Sham Commonly known as: NIZORAL Apply as shampoo once daily (three months supply) Quantity: 360 mL Refills: 3 mirabegron 50 mg Tablet sr Take by mouth. Refills: 0 oxybutynin XL 5 mg Tr24 Commonly known as: Ditropan-XL Refills: 0 pimecrolimus 1 % Crea Commonly known as: ELIDEL Apply 1-2 times daily to affected facial and presternal chest sites Quantity: 30 g Refills: 5 terazosin 5 mg Cap Commonly known as: Hytrin Bedtime Refills: 0 Updated Allergies/ADRs: Allergies Allergen Reactions ??? Hydrochlorothiazide ??? Lisinopril Follow-up Recommendations for Providers: Follow-up in 1 week with CTA C/A/P with Dr. Duke in vascular surgery. Instructions Given to Patient at Discharge: Patient Instructions You were admitted to [facility] [place] [place] after having your aortic aneurysm repaired with a graft. This all went very well and your postoperative course was uncomplicated. Dr. Duke will want you to be seen in 1 weeks for an incision site check and staple removal with a CT scan. This will be scheduled and sent toyou in the mail. Please call our office at the number below if you don't receive this appointment in a week as your follow up is very important. Antiplatelet: Start taking a baby aspirin (81 mg) daily. Call your doctor if: Any abdominal or back pain, any issue of redness, swelling or separation of your incision, any nausea or vomiting or any fever. Activity level: up as tolerated but take it easy for a week or so. Diet: regular Driving: ok in a week or so if driving before and you feel perfect. NONE if requiring any pain medication Shower/Bath: showering is fine Wound Care: 1) Abdominal incision: Wash in a shower with soap and water, pat dry. Leave incision site open to air. Any suture/mercy should remain in place until Vascular Surgery follow-up. 2) Back rash: Wash in a shower with soap and water, pat dry. Apply augmented betamethasone twice a day for 14 days to effected areas of your back. For any problems or questions please call [phone] MAYCO Fleming, bacteriology professor Nurse Clinician For issues on weeknights after 5pm and weekends please call [phone] and ask for the Vascular Fellow educational aid. NIHARIKA Harrison 06/10/2019 documented in this encounter Discharge Instructions * Patient Instructions* Aliyah Romero PA - 06/04/2019 1:03 PM EST You were admitted to [facility] [place] [place] after having your aortic aneurysm repaired with a graft. This all went very well and your postoperative course was uncomplicated. Dr. Duke will want you to be seen in 1 weeks for an incision site check and staple removal with a CT scan. This will be scheduled and sent toyou in the mail. Please call our office at the number below if you don't receive this appointment in a week as your follow up is very important. Antiplatelet: Start taking a baby aspirin (81 mg) daily. Call your doctor if: Any abdominal or back pain, any issue of redness, swelling or separation of your incision, any nausea or vomiting or any fever. Activity level: up as tolerated but take it easy for a week or so. Diet: regular Driving: ok in a week or so if driving before and you feel perfect. NONE if requiring any pain medication Shower/Bath: showering is fine Wound Care: 1) Abdominal incision: Wash in a shower with soap and water, pat dry. Leave incision site open to air. Any suture/mercy should remain in place until Vascular Surgery follow-up. 2) Back rash: Wash in a shower with soap and water, pat dry. Apply augmented betamethasone twice a day for 14 days to effected areas of your back. For any problems or questions please call [phone] MAYCO Fleming, bacteriology professor Nurse Clinician For issues on weeknights after 5pm and weekends please call [phone] and ask for the Vascular Fellow educational aid. documented in this encounter Medications at Time [...] as of this encounter Progress Notes * Magda Miller RN - 06/10/2019 3:14 PM EST Acute Pain Service - Epidural 30 Day Follow-up Call - Operative Procedures: Procedure(s): @REPAIR ILIAC ARTERY ANEURYSM (CHANCE, HYPOGASTRIC OR EIA) (WRVU 26.4) @REPAIR AORTIC ANEURYSM INVOLVING RENAL OR MESENTERIC VESSELS (WRVU 35.35) @ENDARTERECTOMY, ILIAC W OR W/O PATCH GRAFT (WRVU 24.61) @ENDARTERECTOMY, ABD. AORTA W OR W/O PATCH GRAFT (WRVU 27.72) DH AN APS FOLLOWUP CALL: 12/09/2019 12:36 PM Opioid prescription on Discharge: No Opioid Prescription at 30 days: No PDMP/Chart Review Only APS Nurse: Magda Miller, RN * Komal Powell RN - 06/10/2019 1:51 PM EST Discharge orders placed. IV removed as ordered. Discharge instructions reviewed with pt including signs and Symptoms of infection, medications, follow up appointment, nutrition and activity. All questions answered and pt discharged to home. * Gissel Oliva RN - 06/10/2019 10:59 AM EST Plan for DC today per Vascular PA. Patient medically ready for DC today. Patient told provider he did not have ride today. CM spoke with his son who reports he will be here at [address] home. Advised by PA that DC paperwork will be completed at that time. Plan for DC home with home care services with [facility]. Gissel Oliva RN Pager [phone] * David Trivedi RN - 06/10/2019 7:39 AM EST Patient Natali) had a busy night. Patient had several episodes of liquid stool incontinence last night. Patient is producing adequate amounts of urine. Patient denies pain and sob. Patient wasgiven hydralazine 10mg IV @ 0025 for high BP with good effect. LSC, HR bradycardic, pulses palpable, active bowel sounds. Diet to be advanced this morning and antibiotics to be discontinued. Discharge tomorrow pending toleration of diet. Will continue to monitor. 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 A letter describing our affiliations was reviewed with them and they were educated about their right to choose where referrals are placed. Patient requests referral to [facility] PHONE: [phone] FAX: [phone] Expected date of discharge: 06/10/19 Referral routed to the Indoor Landscape Architect for matching with agency/vendor and to provide any required information. Arden BROWN Pager [phone] * Patrick Stallings MD - 06/09/2019 8:54 AM EST Acute Pain Service - Epidural Daily Management VITAL SIGNS: Visit Vitals BP 150/63 (BP Location (NBP): Right arm, Patient Position: Lying) Pulse 72 Temp 36.5 ??C (97.7 ??F) (Oral) Resp 16 Ht 175.3 cm (5' 9.02) Wt 97.9 kg (215 lb 13.3 oz) SpO2 96% BMI 31.86 kg/m?? Body mass index is 31.86 kg/m??. Labs: WBC Date Value Ref Range Status 06/09/2019 7.4 4.0 - 9.5 x10(3)/mcL Final Hemoglobin Date Value Ref Range Status 06/09/2019 8.0 (L) 13.7 - 16.5 gm/dL Final Hematocrit Date Value Ref Range Status 06/09/2019 24.6 (L) 40.5 - 48.5 % Final Platelets Date Value Ref Range Status 06/09/2019 182 145 - 357 x10(3)/mcL Final Operative Procedures: Procedure(s): @REPAIR ILIAC ARTERY ANEURYSM (CHANCE, HYPOGASTRIC OR EIA) (WRVU 26.4) @REPAIR AORTIC ANEURYSM INVOLVING RENAL OR MESENTERIC VESSELS (WRVU 35.35) @ENDARTERECTOMY, ILIAC W OR W/O PATCH GRAFT (WRVU 24.61) @ENDARTERECTOMY, ABD. AORTA W OR W/O PATCH GRAFT (WRVU 27.72) APS Opioid Administration Hx All administrations since 06/08/2019 are shown below each listed medication. Other Order Route Rate Dose Action Date HYDROmorphone (Dilaudid) 10 mcg/mL, BUpivacaine (Marcaine) 0.1% (0.1 mg/mL) (1/10%) in sodium chloride 0.9% 250 mL epidural Epidural 0.1 mL/hr 0.1 mL/hr Rate/Dose Change 06/09/2019 Epidural 3 mL/hr 3 mL/hr New Bag 06/09/2019 Epidural 3 mL/hr 3 mL/hr Rate/Dose Change 06/08/2019 Epidural 6 mL/hr 6 mL/hr New Bag 06/08/2019 DH AN APS EPIDURAL ROUNDIN06/09/2019 7:40 AM Average Numeric Rating Pain Score (0-10):: 0 Post-Op Day:: 6 Epidural Day:: 7 Epidural Infusion (solution):: HYDROmorphone 10 mcg/mL and BUpivacaine 0.1% Epidural Infusion Rate (mL/hr): 0 PCEA Dose (mL): 3 Out of Bed: Yes Ambulation: Yes Able to Use Incentive Spirometry: Yes Escalation of Care: No Tolerating Regular Diet: Yes Epidural Catheter Removed (Intact unless noted in Comments): Yes 06/09/2019 7:40 AM Notes/Plan: Storm is doing well this morning. His has minimal incisional pain, but does endorse discomfort with the rash on his back. His epidural was removed without complication. IALLY RN, have performed the documentation for this encounter in the presence of and acting as a scribe for Dr. Stallings. APS Nurse: Ally Farrar RN Fellow:: Nael Cheng MD Attending Physician:: Patrick Stallings MD I performed the above scribed service and agree with the accuracy of the note. PATRICK STALLINGS MD * Aliyah Romero PA - 06/09/2019 8:49 AM EST Vascular Surgery - Progress Note Admit Date: 06/03/2019 Hospital Day 6 days status post Operations this Hospitalization: 06/03/2019: Open transperitoneal AAA repair, Repair of bilateral common iliac artery aneurysms, Ligation of right hypogastric artery, Bilateral iliac artery endarterectomy, Aortic endarterectomy. Problem List: Active Hospital Problems Diagnosis ??? AAA (abdominal aortic aneurysm) Resolved Hospital Problems No resolved problems to display. Active Non-Hospital Problems Diagnosis ??? Pre-operative exam ??? Iliac artery aneurysm [...] ??? Malignant melanoma of skin ??? Hypertension 24 Hour Events: No acute events overnight. Patient now passing flatus, no BM yet. Lasix for diuresis, net 2L negative again yesterday. Epidural removed. Subjective: Patient is doing well. Pain well-controlled at present. Continues to pass flatus, no BM yet. Denieschest pain, dyspnea, nausea and vomiting. Physical Exam: Last Set of Vitals and range of vitals over past 24 hours: Last value Range last 24 hrs Temperature Temp: 36.5 ??C (97.7 ??F) Temp: [36.5 ??C (97.7 ??F)-37 ??C (98.6 ??F)] Heart Rate Heart Rate: 72 Heart Rate: -- Blood Pressure BP: 150/63 BP: (127-150)/(58-63) Respiratory Rate Resp: 16 Resp: [16-20] SpO2 SpO2: 96 % SpO2: [96 %-99 %] Gen: Alert, oriented, conversant, in NAD. HEENT: Normocephalic, atraumatic. CV: Regular rate. Resp: Breathing comfortably on RA-2L, no increased WOB. Abd: Midline incision c/d/i - mild antonina-incisional erythema, no drainage. Soft but mildly distended, non-tender. Ext: Warm, brisk cap refill, non-cyanotic. DP/PT palpable bilaterally Laboratory (Last 24 Hours): Recent Results (from the past 24 hour(s)) BMP w/fasting Glucose Result Value Ref Range Glucose Fasting 89 65 - 99 mg/dL BUN 30 (H) 10 - 20 mg/dL Creatinine 1.31 0.80 - 1.50 mg/dL Sodium 146 (H) 135 - 145 mmol/L Potassium 4.0 3.5 - 5.0 mmol/L Chloride 108 (H) 98 - 107 mmol/L CO2 28 22 - 31 mmol/L Anion Gap 10 5 - 15 mmol/L Calcium 8.4 (L) 8.5 - 10.5 mg/dL eGFR 53 (L) >=60 mL/min/1.73 m?? eGFR 62 >=60 mL/min/1.73 m?? Hemogram Result Value Ref Range WBC 8.0 4.0 - 9.5 x10(3)/mcL RBC 2.62 (L) 4.58 - 5.54 x10(6)/mcL Hemoglobin 8.4 (L) 13.7 - 16.5 gm/dL Hematocrit 26.4 (L) 40.5 - 48.5 % MCV 100.8 (H) 82.9 - 93.1 fL MCH 32.1 27.5 - 32.1 pg MCHC 31.8 (L) 32.0 - 35.7 gm/dL Platelets 179 145 - 357 x10(3)/mcL RDWSD 49.1 (H) 36.0 - 45.0 fL RDWCV 13.3 11.4 - 13.8 % MPV 10.4 7.6 - 12.9 fL nRBC % Auto 0.0 % nRBC Abs Auto 0.000 0.000 - 0.000 x10(3)/mcL Differential, Automated Result Value Ref Range Neutrophils % 78.9 % Neutr Abs (ANC) 6.27 (H) 1.70 - 6.10 x10(3)/mcL Lymphocytes % 9.9 % Lymphocytes Abs 0.8 (L) 0.9 - 3.2 x10(3)/mcL Monocytes % 6.9 % Monocyte Abs 0.6 0.3 - 0.9 x10(3)/mcL Eosinophils % 2.6 % Eosinophils Abs 0.2 0.0 - 0.4 x10(3)/mcL Basophils % 0.4 % Basophils Abs 0.0 0.0 - 0.1 x10(3)/mcL Immature Gran % 1.30 % Melanie Gran Abs 0.10 (H) 0.00 - 0.04 x10(3)/mcL BMP w/fasting Glucose Result Value Ref Range Glucose Fasting 87 65 - 99 mg/dL BUN 29 (H) 10 - 20 mg/dL Creatinine 1.18 0.80 - 1.50 mg/dL Sodium 145 135 - 145 mmol/L Potassium 3.8 3.5 - 5.0 mmol/L Chloride 107 98 - 107 mmol/L CO2 26 22 - 31 mmol/L Anion Gap 12 5 - 15 mmol/L Calcium 8.2 (L) 8.5 - 10.5 mg/dL eGFR 60 >=60 mL/min/1.73 m?? eGFR 70 >=60 mL/min/1.73 m?? Hemogram Result Value Ref Range WBC 7.4 4.0 - 9.5 x10(3)/mcL RBC 2.43 (L) 4.58 - 5.54 x10(6)/mcL Hemoglobin 8.0 (L) 13.7 - 16.5 gm/dL Hematocrit 24.6 (L) 40.5 - 48.5 % MCV 101.2 (H) 82.9 - 93.1 fL MCH 32.9 (H) 27.5 - 32.1 pg MCHC 32.5 32.0 - 35.7 gm/dL Platelets 182 145 - 357 x10(3)/mcL RDWSD 49.5 (H) 36.0 - 45.0 fL RDWCV 13.3 11.4 - 13.8 % MPV 10.3 7.6 - 12.9 fL nRBC % Auto 0.0 % nRBC Abs Auto 0.000 0.000 - 0.000 x10(3)/mcL Differential, Automated Result Value Ref Range Neutrophils % 77.0 % Neutr Abs (ANC) 5.70 1.70 - 6.10 x10(3)/mcL Lymphocytes % 11.3 % Lymphocytes Abs 0.8 (L) 0.9 - 3.2 x10(3)/mcL Monocytes % 7.3 % Monocyte Abs 0.5 0.3 - 0.9 x10(3)/mcL Eosinophils % 2.4 % Eosinophils Abs 0.2 0.0 - 0.4 x10(3)/mcL Basophils % 0.4 % Basophils Abs 0.0 0.0 - 0.1 x10(3)/mcL Immature Gran % 1.60 % Melanie Gran Abs 0.12 (H) 0.00 - 0.04 x10(3)/mcL Assessment & Plan: Storm Olivares is a 74 year old male with PMH CAD, angina, [place], COPD, smoker now 6 Days Post-Op s/p open AAA repair, doing well post-operatively. Plan to transition to PO pain control regimen today: - Start full liquid diet this morning. Will advance for dinner if patient tolerates diet. - Labs BID. - PO tylenol and oxycodone PRN pain. - ASA/SQH. - PT/OT, OOB as tolerated. - Encourage IS for atelectasis. - Continue home meds. - Start Ancef for antonina-incisional erythema. Dispo: Floor status, full code. NIHARIKA Harrison 06/09/2019 * Jignesh Cordero MD - 06/08/2019 9:49 AM EST Vascular Surgery - Progress Note Admit Date: 06/03/2019 Hospital Day 5 days status post Procedure(s) (LRB): @REPAIR ILIAC ARTERY ANEURYSM (CHANCE, HYPOGASTRIC OR EIA) (WRVU 26.4) (Bilateral) @REPAIR AORTIC ANEURYSM INVOLVING RENAL OR MESENTERIC VESSELS (WRVU 35.35) (N/A) @ENDARTERECTOMY, ILIAC W OR W/O PATCH GRAFT (WRVU 24.61) @ENDARTERECTOMY, ABD. AORTA W OR W/O PATCH GRAFT (WRVU 27.72) (N/A) ? Findings:??bilateral CHANCE aneurysm, and hypogastric aneurysm. End to end proximal anastomosis, rightend to end with EIA, left end to end with iliac bifurcation (Dacron 18x9 - rifampin soaked). Small transverse colon serosal tear, imbricated with 3-0 silk suture. Palpable bilateral DP. Problem List: Active Hospital Problems Diagnosis ??? AAA (abdominal aortic aneurysm) Resolved Hospital Problems No resolved problems to display. Active Non-Hospital Problems Diagnosis ??? Pre-operative exam ??? Iliac artery aneurysm [...] ??? Malignant melanoma of skin ??? Hypertension 24 Hour Events: - no acute events overnight - lasix for diuresis, net 2L negative Subjective: Pt doing well, denies chest pain, SOB. Pain adequately controlled with epidural PCEA. Endorses flatus, no BM yet Physical Exam: Last Set of Vitals and range of vitals over past 24 hours: Last value Range last 24 hrs Temperature Temp: 36.8 ??C (98.2 ??F) Temp: [36.7 ??C (98.1 ??F)-37 ??C (98.6 ??F)] Heart Rate Heart Rate: 72 Heart Rate: [72] Blood Pressure BP: 133/64 BP: (118-134)/(58-77) Respiratory Rate Resp: 20 Resp: [16-20] SpO2 SpO2: 96 % SpO2: [95 %-97 %] Gen: alert, oriented, conversant, in NAD HEENT: normocephalic, atraumatic, EOMI, PERRLA CV: regular Resp: breathing comfortably on RA-2L, no inc WOB, no wheezes Abd: soft but distended, nontender Ext: warm, brisk cap refill, non-cyanotic. DP/PT palpable bilaterally Laboratory (Last 24 Hours): Recent Results (from the past 24 hour(s)) BMP w/fasting Glucose Result Value Ref Range Glucose Fasting 84 65 - 99 mg/dL BUN 27 (H) 10 - 20 mg/dL Creatinine 1.35 0.80 - 1.50 mg/dL Sodium 147 (H) 135 - 145 mmol/L Potassium 4.1 3.5 - 5.0 mmol/L Chloride 108 (H) 98 - 107 mmol/L CO2 26 22 - 31 mmol/L Anion Gap 13 5 - 15 mmol/L Calcium 8.3 (L) 8.5 - 10.5 mg/dL eGFR 51 (L) >=60 mL/min/1.73 m?? eGFR 60 >=60 mL/min/1.73 m?? Hemogram Result Value Ref Range WBC 8.2 4.0 - 9.5 x10(3)/mcL RBC 2.61 (L) 4.58 - 5.54 x10(6)/mcL Hemoglobin 8.5 (L) 13.7 - 16.5 gm/dL Hematocrit 26.6 (L) 40.5 - 48.5 % MCV 101.9 (H) 82.9 - 93.1 fL MCH 32.6 (H) 27.5 - 32.1 pg MCHC 32.0 32.0 - 35.7 gm/dL Platelets 165 145 - 357 x10(3)/mcL RDWSD 49.9 (H) 36.0 - 45.0 fL RDWCV 13.6 11.4 - 13.8 % MPV 10.4 7.6 - 12.9 fL nRBC % Auto 0.0 % nRBC Abs Auto 0.000 0.000 - 0.000 x10(3)/mcL Differential, Automated Result Value Ref Range Neutrophils % 80.5 % Neutr Abs (ANC) 6.56 (H) 1.70 - 6.10 x10(3)/mcL Lymphocytes % 9.0 % Lymphocytes Abs 0.7 (L) 0.9 - 3.2 x10(3)/mcL Monocytes % 7.2 % Monocyte Abs 0.6 0.3 - 0.9 x10(3)/mcL Eosinophils % 2.3 % Eosinophils Abs 0.2 0.0 - 0.4 x10(3)/mcL Basophils % 0.4 % Basophils Abs 0.0 0.0 - 0.1 x10(3)/mcL Immature Gran % 0.60 % Melanie Gran Abs 0.05 (H) 0.00 - 0.04 x10(3)/mcL BMP w/fasting Glucose Result Value Ref Range Glucose Fasting 85 65 - 99 mg/dL BUN 29 (H) 10 - 20 mg/dL Creatinine 1.25 0.80 - 1.50 mg/dL Sodium 145 135 - 145 mmol/L Potassium 4.1 3.5 - 5.0 mmol/L Chloride 108 (H) 98 - 107 mmol/L CO2 27 22 - 31 mmol/L Anion Gap 10 5 - 15 mmol/L Calcium 8.1 (L) 8.5 - 10.5 mg/dL eGFR 56 (L) >=60 mL/min/1.73 m?? eGFR 65 >=60 mL/min/1.73 m?? Hemogram Result Value Ref Range WBC 7.7 4.0 - 9.5 x10(3)/mcL RBC 2.55 (L) 4.58 - 5.54 x10(6)/mcL Hemoglobin 8.4 (L) 13.7 - 16.5 gm/dL Hematocrit 25.9 (L) 40.5 - 48.5 % MCV 101.6 (H) 82.9 - 93.1 fL MCH 32.9 (H) 27.5 - 32.1 pg MCHC 32.4 32.0 - 35.7 gm/dL Platelets 168 145 - 357 x10(3)/mcL RDWSD 50.0 (H) 36.0 - 45.0 fL RDWCV 13.5 11.4 - 13.8 % MPV 10.4 7.6 - 12.9 fL nRBC % Auto 0.0 % nRBC Abs Auto 0.000 0.000 - 0.000 x10(3)/mcL Differential, Automated Result Value Ref Range Neutrophils % 77.4 % Neutr Abs (ANC) 5.93 1.70 - 6.10 x10(3)/mcL Lymphocytes % 10.7 % Lymphocytes Abs 0.8 (L) 0.9 - 3.2 x10(3)/mcL Monocytes % 7.6 % Monocyte Abs 0.6 0.3 - 0.9 x10(3)/mcL Eosinophils % 2.9 % Eosinophils Abs 0.2 0.0 - 0.4 x10(3)/mcL Basophils % 0.4 % Basophils Abs 0.0 0.0 - 0.1 x10(3)/mcL Immature Gran % 1.00 % Melanie Gran Abs 0.08 (H) 0.00 - 0.04 x10(3)/mcL Assessment: Storm Olivares is a 74 year old male with PMH CAD, angina, [place], COPD, smoker now 5 Days Post-Op s/p open AAA repair, doing well post-operatively. Pain well controlled with PCEA and IV Tylenol. Pt remains NPO with flatus, no BM. Pt denies nausea, vomiting, declining NGT. Plan: - Labs BID - NPO maintain until evidence of bowel function - 1x 20 mg IV Lasix - Epidural CLAM BED WORKER, IV Tylenol; APS to wean epidural today and plan to D/C tomorrow - ASA/SQH; hold SQH tomorrow for epidural removal - PT/OT, OOB as tolerated - Encourage IS for atelectasis - Continue home meds - Floor status Jignesh Cordero MD 06/08/2019 * Nicol Dixon - 06/08/2019 9:34 AM EST Nutrition Services - NPO note Storm Olivares : 1945 AGE: 74 y.o. Patient Active Problem List Diagnosis Date Noted ??? Hospital-AAA (abdominal aortic aneurysm) 05/05/2019 ??? Pre-operative exam 04/08/2019 ??? Iliac artery aneurysm 12/26/2017 ??? Hyperlipidemia 06/30/2015 ??? Adiposity 06/30/2015 ??? History of BPH 06/30/2015 ??? Tobacco dependence syndrome 06/30/2015 ??? Hemangioma of liver 06/30/2015 ??? Abdominal aortic aneurysm 06/30/2015 ??? Adenomatous polyp of colon 06/30/2015 ??? Seborrheic dermatitis 05/24/2015 ??? Benign prostatic hyperplasia with urinary obstruction 03/17/2015 ??? Increased frequency of urination 03/17/2015 ??? History of malignant melanoma 07/05/2011 ??? Benign prostatic hyperplasia without urinary obstruction 06/27/2011 ??? Malignant melanoma of skin 10/18/2010 ??? Hypertension 10/18/2010 Ht Readings from Last 3 Encounters: 06/04/19 175.3 cm (5' 9.02) 04/08/19 175.3 cm (5' 9) 03/14/19 175.3 cm (5' 9) Wt Readings from Last 3 Encounters: 06/06/19 103.2 kg (227 lb 8 oz) 04/08/19 94.8 kg (209 lb) 03/14/19 93.9 kg (207 lb) Body mass index is 33.58 kg/m??. Labs:Results for STORM OLIVARES ( ) as of 06/08/2019 09:29 Ref. Range 06/06/2019 12:47 06/06/2019 18:49 06/07/2019 07:31 06/07/2019 18:04 06/08/2019 07:36 Sodium Latest Ref Range: 135 - 145 mmol/L 143 137 144 147 (H) 145 Potassium Latest Ref Range: 3.5 - 5.0 mmol/L 4.3 4.2 4.2 4.1 4.1 BUN Latest Ref Range: 10 - 20 mg/dL 24 (H) 27 (H) 29 (H) 27 (H) 29 (H) Creatinine Latest Ref Range: 0.80 - 1.50 mg/dL 1.50 1.49 1.30 1.35 1.25 eGFR Latest Ref Range: >=60 mL/min/1.73 m?? 45 (L) 46 (L) 54 (L) 51 (L) 56 (L) eGFR Latest Ref Range: >=60 mL/min/1.73 m?? 52 (L) 53 (L) 62 60 65 Glucose Fasting Latest Ref Range: 65 - 99 mg/dL 94 88 84 85 Glucose Lvl Latest Ref Range: 65 - 199 mg/dL 100 Calcium Latest Ref Range: 8.5 - 10.5 mg/dL 7.8 (L) 7.8 (L) 8.0 (L) 8.3 (L) 8.1 (L) Patient has been NPO and/or on clear liquids for 5 days. If diet can not be advanced within 24 hours, please consider alternative means of nutrition support. Nicol Dixon, DTR Pager [phone] * Patrick Stallings MD - 06/08/2019 8:01 AM EST Acute Pain Service - Epidural Daily Management VITAL SIGNS: Visit Vitals BP 119/58 (BP Location (NBP): Left arm, Patient Position: Lying) Pulse 72 Temp 36.7 ??C (98.1 ??F) (Oral) Resp 18 Ht 175.3 cm (5' 9.02) Wt 103.2 kg (227 lb 8 oz) SpO2 95% BMI 33.58 kg/m?? Body mass index is 33.58 kg/m??. Labs: WBC Date Value Ref Range Status 06/07/2019 8.2 4.0 - 9.5 x10(3)/mcL Final Hemoglobin Date Value Ref Range Status 06/07/2019 8.5 (L) 13.7 - 16.5 gm/dL Final Hematocrit Date Value Ref Range Status 06/07/2019 26.6 (L) 40.5 - 48.5 % Final Platelets Date Value Ref Range Status 06/07/2019 165 145 - 357 x10(3)/mcL Final Operative Procedures: Procedure(s): @REPAIR ILIAC ARTERY ANEURYSM (CHANCE, HYPOGASTRIC OR EIA) (WRVU 26.4) @REPAIR AORTIC ANEURYSM INVOLVING RENAL OR MESENTERIC VESSELS (WRVU 35.35) @ENDARTERECTOMY, ILIAC W OR W/O PATCH GRAFT (WRVU 24.61) @ENDARTERECTOMY, ABD. AORTA W OR W/O PATCH GRAFT (WRVU 27.72) APS Opioid Administration Hx All administrations since 06/07/2019 are shown below each listed medication. Other Order Route Rate Dose Action Date HYDROmorphone (Dilaudid) 10 mcg/mL, BUpivacaine (Marcaine) 0.1% (0.1 mg/mL) (1/10%) in sodium chloride 0.9% 250 mL epidural Epidural 6 mL/hr 6 mL/hr New Bag 06/08/2019 Epidural 6 mL/hr 6 mL/hr New Bag 06/07/2019 DH AN APS EPIDURAL ROUNDIN06/08/2019 8:02 AM Average Numeric Rating Pain Score (0-10):: 0 Post-Op Day:: 5 Epidural Day:: 6 Epidural Infusion (solution):: HYDROmorphone 10 mcg/mL and BUpivacaine 0.1% Epidural Infusion Rate (mL/hr): 6 PCEA Dose (mL): 3 Out of Bed: Yes Ambulation: Yes Able to Use Incentive Spirometry: Yes Escalation of Care: No Notes/Plan: Team was called yesterday for a red rash and he has some blistering in his upperback Area under his tegaderm is completely normal, there was one spot above the HCG tegaderm without dressing and that was red, the more superior aspect of the back where there was tape was completely normal, likely reaction to sheets Pain is well controlled will wean, will wean epidural continuous rate to 3ml/hr with plan to removein am (please hold am anticoagulation) PATRICK STALLINGS MD * Marv Solano RN - 06/07/2019 6:56 PM EST Admission Note: Patient A+Ox4, VSS, pt oriented to room and call sagastume. Will continue to monitor. See EDH for further information. * Faby Greenberg - 06/07/2019 5:26 PM EST APS Progress Note - Nursing Request to Check Epidural S: Called to assess patient given rash on back. Patient sitting upright in chair, comfortable. Patient reports no current pain in the area of the rash, no current pruritis. Patient reports it sometimes feels like a sunburn when he lies on his back in bed. O: Breathing comfortably on NC, pink and well perfused. Large area of back with erythema, blanching. Areas are slightly raised, possible induration. Sparing under epidural tape at insertion site (chlorhex tegaderm) and tegaderm directly above. Nursing hasmarked extent of rash/plaque - has not extended beyond lines. Patient has intact sensation over rash. Motor function in bilat LE 5/5 - all joints tested. Sensation intact in bilat LE. A/P: Mr Olivares has a rash on his back around his epidural tape. Areas under the tape - includingthe area directly around the epidural insertion site - are spared. As a result of sparing, tape reaction seems less likely. He reports burning. Possible etiologies include - allergic dermatitis, burn, contact dermatitis. Nurse reports Vascular Surgery team aware and has seen patient. At this point, we would recommend continuing to monitor and a wound care consult. Faby Greenberg MD Assessment and Plan discussed with attending, Dr Haylie STOREY. * Patrick Stallings MD - 06/07/2019 11:54 AM EST Acute Pain Service - Epidural Daily Management VITAL SIGNS: Visit Vitals BP 134/77 Pulse 72 Temp 36.4 ??C (97.5 ??F) (Bladder) Resp 10 Ht 175.3 cm (5' 9.02) Wt 103.2 kg (227 lb 8 oz) SpO2 98% BMI 33.58 kg/m?? Body mass index is 33.58 kg/m??. Labs: WBC Date Value Ref Range Status 06/07/2019 9.3 4.0 - 9.5 x10(3)/mcL Final Hemoglobin Date Value Ref Range Status 06/07/2019 8.2 (L) 13.7 - 16.5 gm/dL Final Hematocrit Date Value Ref Range Status 06/07/2019 25.8 (L) 40.5 - 48.5 % Final Platelets Date Value Ref Range Status 06/07/2019 139 (L) 145 - 357 x10(3)/mcL Final Operative Procedures: Procedure(s): @REPAIR ILIAC ARTERY ANEURYSM (CHANCE, HYPOGASTRIC OR EIA) (WRVU 26.4) @REPAIR AORTIC ANEURYSM INVOLVING RENAL OR MESENTERIC VESSELS (WRVU 35.35) @ENDARTERECTOMY, ILIAC W OR W/O PATCH GRAFT (WRVU 24.61) @ENDARTERECTOMY, ABD. AORTA W OR W/O PATCH GRAFT (WRVU 27.72) APS Opioid Administration Hx All administrations since 06/06/2019 are shown below each listed medication. Other Order Route Rate Dose Action Date HYDROmorphone (Dilaudid) 10 mcg/mL, BUpivacaine (Marcaine) 0.1% (0.1 mg/mL) (1/10%) in sodium chloride 0.9% 250 mL epidural Epidural 6 mL/hr 6 mL/hr New Bag 06/07/2019 Epidural 6 mL/hr 6 mL/hr New Bag 06/06/2019 DH AN APS EPIDURAL ROUNDIN06/07/2019 11:54 AM Average Numeric Rating Pain Score (0-10):: 0 Post-Op Day:: 4 Epidural Day:: 5 Epidural Infusion (solution):: HYDROmorphone 10 mcg/mL and BUpivacaine 0.1% Epidural Infusion Rate (mL/hr): 6 PCEA Dose (mL): 3 Out of Bed: Yes Ambulation: Yes Able to Use Incentive Spirometry: Yes Escalation of Care: No Tolerating Regular Diet: No Notes/Plan: Doing well Remains NPO + flatus today Will continue current management with plan to start to wean epidural tomorrow and likely remove at the beginning of the week Attending Physician:: Patrick Stallings MD * Pricilla Quiñones MD - 06/07/2019 9:00 AM EST Vascular Surgery - Progress Note Admit Date: 06/03/2019 Hospital Day 4 days status post Procedure(s) (LRB): @REPAIR ILIAC ARTERY ANEURYSM (CHANCE, HYPOGASTRIC OR EIA) (WRVU 26.4) (Bilateral) @REPAIR AORTIC ANEURYSM INVOLVING RENAL OR MESENTERIC VESSELS (WRVU 35.35) (N/A) @ENDARTERECTOMY, ILIAC W OR W/O PATCH GRAFT (WRVU 24.61) @ENDARTERECTOMY, ABD. AORTA W OR W/O PATCH GRAFT (WRVU 27.72) (N/A) ? Findings:??bilateral CHANCE aneurysm, and hypogastric aneurysm. End to end proximal anastomosis, rightend to end with EIA, left end to end with iliac bifurcation (Dacron 18x9 - rifampin soaked). Small transverse colon serosal tear, imbricated with 3-0 silk suture. Palpable bilateral DP. Problem List: Active Hospital Problems Diagnosis ??? AAA (abdominal aortic aneurysm) Resolved Hospital Problems No resolved problems to display. Active Non-Hospital Problems Diagnosis ??? Pre-operative exam ??? Iliac artery aneurysm [...] ??? Malignant melanoma of skin ??? Hypertension 24 Hour Events: - Episode of confusion yesterday, infectious work-up negative - Confusion resolved - Pt removed NGT, declined re-placement overnight - On 3L NC overnight Subjective: Pt doing well, denies chest pain, SOB, nausea, vomiting, numbness, tingling, weakness, offers no complaints. Pain adequately controlled with epidural CLAM BED WORKER. Voiding independently. Passing flatus, no BM. Physical Exam: Last Set of Vitals and range of vitals over past 24 hours: Last value Range last 24 hrs Temperature Temp: 36.8 ??C (98.2 ??F) Temp: [36.4 ??C (97.5 ??F)-36.9 ??C (98.4 ??F)] Heart Rate Heart Rate: 72 Heart Rate: [53-72] Blood Pressure BP: 118/74 BP: (118-151)/(47-77) Respiratory Rate Resp: 17 Resp: [10-17] SpO2 SpO2: 95 % SpO2: [95 %-98 %] Gen: alert, oriented, conversant, in NAD HEENT: normocephalic, atraumatic, EOMI, PERRLA CV: regular Resp: breathing comfortably on RA, no inc WOB, no wheezes Abd: soft but distended, mild TTP around incision, no erythema or drainage Ext: warm, brisk cap refill, non-cyanotic. DP/PT palpable bilaterally Laboratory (Last 24 Hours): Recent Results (from the past 24 hour(s)) BMP w/fasting Glucose Result Value Ref Range Glucose Fasting 88 65 - 99 mg/dL BUN 29 (H) 10 - 20 mg/dL Creatinine 1.30 0.80 - 1.50 mg/dL Sodium 144 135 - 145 mmol/L Potassium 4.2 3.5 - 5.0 mmol/L Chloride 110 (H) 98 - 107 mmol/L CO2 24 22 - 31 mmol/L Anion Gap 10 5 - 15 mmol/L Calcium 8.0 (L) 8.5 - 10.5 mg/dL eGFR 54 (L) >=60 mL/min/1.73 m?? eGFR 62 >=60 mL/min/1.73 m?? Hemogram Result Value Ref Range WBC 9.3 4.0 - 9.5 x10(3)/mcL RBC 2.53 (L) 4.58 - 5.54 x10(6)/mcL Hemoglobin 8.2 (L) 13.7 - 16.5 gm/dL Hematocrit 25.8 (L) 40.5 - 48.5 % MCV 102.0 (H) 82.9 - 93.1 fL MCH 32.4 (H) 27.5 - 32.1 pg MCHC 31.8 (L) 32.0 - 35.7 gm/dL Platelets 139 (L) 145 - 357 x10(3)/mcL RDWSD 50.4 (H) 36.0 - 45.0 fL RDWCV 13.5 11.4 - 13.8 % MPV 10.2 7.6 - 12.9 fL nRBC % Auto 0.0 % nRBC Abs Auto 0.000 0.000 - 0.000 x10(3)/mcL Differential, Automated Result Value Ref Range Neutrophils % 82.1 % Neutr Abs (ANC) 7.65 (H) 1.70 - 6.10 x10(3)/mcL Lymphocytes % 7.0 % Lymphocytes Abs 0.6 (L) 0.9 - 3.2 x10(3)/mcL Monocytes % 8.2 % Monocyte Abs 0.8 0.3 - 0.9 x10(3)/mcL Eosinophils % 1.9 % Eosinophils Abs 0.2 0.0 - 0.4 x10(3)/mcL Basophils % 0.3 % Basophils Abs 0.0 0.0 - 0.1 x10(3)/mcL Immature Gran % 0.50 % Melanie Gran Abs 0.05 (H) 0.00 - 0.04 x10(3)/mcL BMP w/fasting Glucose Result Value Ref Range Glucose Fasting 84 65 - 99 mg/dL BUN 27 (H) 10 - 20 mg/dL Creatinine 1.35 0.80 - 1.50 mg/dL Sodium 147 (H) 135 - 145 mmol/L Potassium 4.1 3.5 - 5.0 mmol/L Chloride 108 (H) 98 - 107 mmol/L CO2 26 22 - 31 mmol/L Anion Gap 13 5 - 15 mmol/L Calcium 8.3 (L) 8.5 - 10.5 mg/dL eGFR 51 (L) >=60 mL/min/1.73 m?? eGFR 60 >=60 mL/min/1.73 m?? Hemogram Result Value Ref Range WBC 8.2 4.0 - 9.5 x10(3)/mcL RBC 2.61 (L) 4.58 - 5.54 x10(6)/mcL Hemoglobin 8.5 (L) 13.7 - 16.5 gm/dL Hematocrit 26.6 (L) 40.5 - 48.5 % MCV 101.9 (H) 82.9 - 93.1 fL MCH 32.6 (H) 27.5 - 32.1 pg MCHC 32.0 32.0 - 35.7 gm/dL Platelets 165 145 - 357 x10(3)/mcL RDWSD 49.9 (H) 36.0 - 45.0 fL RDWCV 13.6 11.4 - 13.8 % MPV 10.4 7.6 - 12.9 fL nRBC % Auto 0.0 % nRBC Abs Auto 0.000 0.000 - 0.000 x10(3)/mcL Differential, Automated Result Value Ref Range Neutrophils % 80.5 % Neutr Abs (ANC) 6.56 (H) 1.70 - 6.10 x10(3)/mcL Lymphocytes % 9.0 % Lymphocytes Abs 0.7 (L) 0.9 - 3.2 x10(3)/mcL Monocytes % 7.2 % Monocyte Abs 0.6 0.3 - 0.9 x10(3)/mcL Eosinophils % 2.3 % Eosinophils Abs 0.2 0.0 - 0.4 x10(3)/mcL Basophils % 0.4 % Basophils Abs 0.0 0.0 - 0.1 x10(3)/mcL Immature Gran % 0.60 % Melanie Gran Abs 0.05 (H) 0.00 - 0.04 x10(3)/mcL Assessment: Storm Olivares is a 74 year old male with PMH CAD, angina, [place], COPD, smoker now 2 s/p open AAA repair, doing well post-operatively. Pain well controlled with epidural CLAM BED WORKER and IV Tylenol. Pt remains NPO with flatus, no BM. Pt denies nausea, vomiting, declining NGT. Will continue to monitor exam, replace NGT as needed. Plan: - Labs BID - NPO maintain until evidence of bowel function - 1x 20 mg IV Lasix - Epidural CLAM BED WORKER, IV Tylenol - ASA/SQH - PT/OT, OOB as tolerated - Encourage IS for atelectasis - mIVF d/c - Continue home meds - Floor status Pricilla Quiñones MD 06/07/2019 * Patrick Stallings MD - 06/06/2019 9:45 AM EST Acute Pain Service - Epidural Daily Management VITAL SIGNS: Visit Vitals BP 106/63 (BP Location (NBP): Right arm, Patient Position: Lying) Pulse 79 Temp 36.9 ??C (98.4 ??F) Resp 15 Ht 175.3 cm (5' 9.02) Wt 103.2 kg (227 lb 8 oz) SpO2 92% BMI 33.58 kg/m?? Body mass index is 33.58 kg/m??. Labs: WBC Date Value Ref Range Status 06/06/2019 9.6 (H) 4.0 - 9.5 x10(3)/mcL Final Hemoglobin Date Value Ref Range Status 06/06/2019 8.9 (L) 13.7 - 16.5 gm/dL Final Hematocrit Date Value Ref Range Status 06/06/2019 27.8 (L) 40.5 - 48.5 % Final Platelets Date Value Ref Range Status 06/06/2019 114 (L) 145 - 357 x10(3)/mcL Final Operative Procedures: Procedure(s): @REPAIR ILIAC ARTERY ANEURYSM (CHANCE, HYPOGASTRIC OR EIA) (WRVU 26.4) @REPAIR AORTIC ANEURYSM INVOLVING RENAL OR MESENTERIC VESSELS (WRVU 35.35) @ENDARTERECTOMY, ILIAC W OR W/O PATCH GRAFT (WRVU 24.61) @ENDARTERECTOMY, ABD. AORTA W OR W/O PATCH GRAFT (WRVU 27.72) APS Opioid Administration Hx All administrations since 06/05/2019 are shown below each listed medication. Other Order Route Rate Dose Action Date HYDROmorphone (Dilaudid) 10 mcg/mL, BUpivacaine (Marcaine) 0.1% (0.1 mg/mL) (1/10%) in sodium chloride 0.9% 250 mL epidural Epidural 6 mL/hr 6 mL/hr New Bag 06/06/2019 Epidural 6 mL/hr 6 mL/hr New Bag 06/05/2019 DH AN APS EPIDURAL ROUNDIN06/06/2019 9:45 AM Average Numeric Rating Pain Score (0-10):: 1 Post-Op Day:: 3 Epidural Day:: 4 Epidural Infusion (solution):: HYDROmorphone 10 mcg/mL and BUpivacaine 0.1% Epidural Infusion Rate (mL/hr): 6 PCEA Dose (mL): 3 Out of Bed: Yes Ambulation: Yes Able to Use Incentive Spirometry: Yes Escalation of Care: No Tolerating Regular Diet: No Epidural Catheter Removed (Intact unless noted in Comments): No Notes/Plan: Terry is doing ok today. His pain remains well-controlled on current epidural regimen. He received 7 of 10 PCEA demand doses in the last 24 hours. He is able to ambulate without issue. His main complaint this morning is that he still has not had any ROBF. An NG tube remains in place and is still NPO. Terry also converted to afib overnight and he has not converted back to NSR at this time. He denies numbness, tingling, itching, or nausea. His epidural insertion site is free from signs of infection. Plan: We made no changes to his epidural regimen today. We will plan to begin wean when patient begins tohave signs of ROBF. Recommend re-ordering Ofirmev until patient can take PO's. MAGDA Key RN, have performed the documentation for this encounter in the presence of andacting as a scribe for Dr. Patrick Stallings. APS Nurse: Magda Miller RN Attending Physician:: Patrick Stallings MD I performed the above scribed service and agree with the accuracy of the note. PATRICK STALLINGS MD * Pricilla Quiñones MD - 06/06/2019 9:00 AM EST Vascular Surgery - Progress Note Admit Date: 06/03/2019 Hospital Day 3 days status post Procedure(s) (LRB): @REPAIR ILIAC ARTERY ANEURYSM (CHANCE, HYPOGASTRIC OR EIA) (WRVU 26.4) (Bilateral) @REPAIR AORTIC ANEURYSM INVOLVING RENAL OR MESENTERIC VESSELS (WRVU 35.35) (N/A) @ENDARTERECTOMY, ILIAC W OR W/O PATCH GRAFT (WRVU 24.61) @ENDARTERECTOMY, ABD. AORTA W OR W/O PATCH GRAFT (WRVU 27.72) (N/A) ? Findings:??bilateral CHANCE aneurysm, and hypogastric aneurysm. End to end proximal anastomosis, rightend to end with EIA, left end to end with iliac bifurcation (Dacron 18x9 - rifampin soaked). Small transverse colon serosal tear, imbricated with 3-0 silk suture. Palpable bilateral DP. Problem List: Active Hospital Problems Diagnosis ??? AAA (abdominal aortic aneurysm) Resolved Hospital Problems No resolved problems to display. Active Non-Hospital Problems Diagnosis ??? Pre-operative exam ??? Iliac artery aneurysm [...] ??? Malignant melanoma of skin ??? Hypertension 24 Hour Events: - Afib w/RVR to 140 overnight - 5g IV metoprolol x1 given with improvement - 2g IV Mg given - NGT with 950cc output/24 H Subjective: Pt doing well, denies chest pain, SOB, nausea, vomiting, numbness, tingling, weakness, offers no complaints. Pain adequately controlled with epidural CLAM BED WORKER. Bains in place, draining clear/yellow urine.No flatus, no BM. NGT in place. Physical Exam: Last Set of Vitals and range of vitals over past 24 hours: Last value Range last 24 hrs Temperature Temp: 36.8 ??C (98.2 ??F) Temp: [36.8 ??C (98.2 ??F)-37.3 ??C (99.1 ??F)] Heart Rate Heart Rate: 59 Heart Rate: [59-131] Blood Pressure BP: 107/60 BP: (106-149)/(49-77) Respiratory Rate Resp: 15 Resp: [13-18] SpO2 SpO2: 98 % SpO2: [91 %-98 %] Gen: alert, oriented, conversant, in NAD HEENT: normocephalic, atraumatic, EOMI, PERRLA CV: regular Resp: breathing comfortably on RA, no inc WOB, no wheezes Abd: soft but distended , mild TTP around incision, no erythema or drainage Ext: warm, brisk cap refill, non-cyanotic. DP/PT palpable bilaterally Laboratory (Last 24 Hours): Recent Results (from the past 24 hour(s)) BMP w/fasting Glucose Result Value Ref Range Glucose Fasting 103 (H) 65 - 99 mg/dL BUN 26 (H) 10 - 20 mg/dL Creatinine 1.62 (H) 0.80 - 1.50 mg/dL Sodium 142 135 - 145 mmol/L Potassium 4.4 3.5 - 5.0 mmol/L Chloride 111 (H) 98 - 107 mmol/L CO2 22 22 - 31 mmol/L Anion Gap 9 5 - 15 mmol/L Calcium 8.1 (L) 8.5 - 10.5 mg/dL eGFR 41 (L) >=60 mL/min/1.73 m?? eGFR 48 (L) >=60 mL/min/1.73 m?? Hemogram Result Value Ref Range WBC 12.2 (H) 4.0 - 9.5 x10(3)/mcL RBC 3.03 (L) 4.58 - 5.54 x10(6)/mcL Hemoglobin 9.8 (L) 13.7 - 16.5 gm/dL Hematocrit 29.9 (L) 40.5 - 48.5 % MCV 98.7 (H) 82.9 - 93.1 fL MCH 32.3 (H) 27.5 - 32.1 pg MCHC 32.8 32.0 - 35.7 gm/dL Platelets 118 (L) 145 - 357 x10(3)/mcL RDWSD 48.8 (H) 36.0 - 45.0 fL RDWCV 13.5 11.4 - 13.8 % MPV 10.4 7.6 - 12.9 fL nRBC % Auto 0.0 % nRBC Abs Auto 0.000 0.000 - 0.000 x10(3)/mcL Differential, Automated Result Value Ref Range Neutrophils % 88.1 % Neutr Abs (ANC) 10.75 (H) 1.70 - 6.10 x10(3)/mcL Lymphocytes % 4.0 % Lymphocytes Abs 0.5 (L) 0.9 - 3.2 x10(3)/mcL Monocytes % 6.2 % Monocyte Abs 0.8 0.3 - 0.9 x10(3)/mcL Eosinophils % 0.5 % Eosinophils Abs 0.1 0.0 - 0.4 x10(3)/mcL Basophils % 0.1 % Basophils Abs 0.0 0.0 - 0.1 x10(3)/mcL Immature Gran % 1.10 % Melanie Gran Abs 0.14 (H) 0.00 - 0.04 x10(3)/mcL BMP w/fasting Glucose Result Value Ref Range Glucose Fasting 93 65 - 99 mg/dL BUN 22 (H) 10 - 20 mg/dL Creatinine 1.33 0.80 - 1.50 mg/dL Sodium 143 135 - 145 mmol/L Potassium 4.2 3.5 - 5.0 mmol/L Chloride 109 (H) 98 - 107 mmol/L CO2 23 22 - 31 mmol/L Anion Gap 11 5 - 15 mmol/L Calcium 7.9 (L) 8.5 - 10.5 mg/dL eGFR 52 (L) >=60 mL/min/1.73 m?? eGFR 61 >=60 mL/min/1.73 m?? Hemogram Result Value Ref Range WBC 9.6 (H) 4.0 - 9.5 x10(3)/mcL RBC 2.72 (L) 4.58 - 5.54 x10(6)/mcL Hemoglobin 8.9 (L) 13.7 - 16.5 gm/dL Hematocrit 27.8 (L) 40.5 - 48.5 % MCV 102.2 (H) 82.9 - 93.1 fL MCH 32.7 (H) 27.5 - 32.1 pg MCHC 32.0 32.0 - 35.7 gm/dL Platelets 114 (L) 145 - 357 x10(3)/mcL RDWSD 50.2 (H) 36.0 - 45.0 fL RDWCV 13.4 11.4 - 13.8 % MPV 9.8 7.6 - 12.9 fL nRBC % Auto 0.0 % nRBC Abs Auto 0.000 0.000 - 0.000 x10(3)/mcL Differential, Automated Result Value Ref Range Neutrophils % 85.6 % Neutr Abs (ANC) 8.19 (H) 1.70 - 6.10 x10(3)/mcL Lymphocytes % 5.9 % Lymphocytes Abs 0.6 (L) 0.9 - 3.2 x10(3)/mcL Monocytes % 6.7 % Monocyte Abs 0.6 0.3 - 0.9 x10(3)/mcL Eosinophils % 0.8 % Eosinophils Abs 0.1 0.0 - 0.4 x10(3)/mcL Basophils % 0.2 % Basophils Abs 0.0 0.0 - 0.1 x10(3)/mcL Immature Gran % 0.80 % Melanie Gran Abs 0.08 (H) 0.00 - 0.04 x10(3)/mcL Basic Metabolic Panel (non-fasting) Result Value Ref Range Glucose Lvl 100 65 - 199 mg/dL BUN 24 (H) 10 - 20 mg/dL Creatinine 1.50 0.80 - 1.50 mg/dL Sodium 143 135 - 145 mmol/L Potassium 4.3 3.5 - 5.0 mmol/L Chloride 111 (H) 98 - 107 mmol/L CO2 25 22 - 31 mmol/L Anion Gap 7 5 - 15 mmol/L Calcium 7.8 (L) 8.5 - 10.5 mg/dL eGFR 45 (L) >=60 mL/min/1.73 m?? eGFR 52 (L) >=60 mL/min/1.73 m?? Hemogram Result Value Ref Range WBC 11.1 (H) 4.0 - 9.5 x10(3)/mcL RBC 2.66 (L) 4.58 - 5.54 x10(6)/mcL Hemoglobin 8.8 (L) 13.7 - 16.5 gm/dL Hematocrit 26.7 (L) 40.5 - 48.5 % MCV 100.4 (H) 82.9 - 93.1 fL MCH 33.1 (H) 27.5 - 32.1 pg MCHC 33.0 32.0 - 35.7 gm/dL Platelets 139 (L) 145 - 357 x10(3)/mcL RDWSD 49.3 (H) 36.0 - 45.0 fL RDWCV 13.5 11.4 - 13.8 % MPV 10.5 7.6 - 12.9 fL nRBC % Auto 0.0 % nRBC Abs Auto 0.000 0.000 - 0.000 x10(3)/mcL Differential, Automated Result Value Ref Range Neutrophils % 84.5 % Neutr Abs (ANC) 9.35 (H) 1.70 - 6.10 x10(3)/mcL Lymphocytes % 6.7 % Lymphocytes Abs 0.7 (L) 0.9 - 3.2 x10(3)/mcL Monocytes % 7.0 % Monocyte Abs 0.8 0.3 - 0.9 x10(3)/mcL Eosinophils % 1.0 % Eosinophils Abs 0.1 0.0 - 0.4 x10(3)/mcL Basophils % 0.3 % Basophils Abs 0.0 0.0 - 0.1 x10(3)/mcL Immature Gran % 0.50 % Melanie Gran Abs 0.06 (H) 0.00 - 0.04 x10(3)/mcL Assessment: Storm Olivares is a 74 year old male with PMH CAD, angina, [place], COPD, smoker now POD2 s/p open AAA repair, doing well post-operatively. Pain well controlled with epidural CLAM BED WORKER and IV Tylenol. Pt remains NPO with NGT to wall suction, moderate output and still no evidence of ROBF,will keep NGT in place. Plan: - Labs BID - NPO with NGT, maintain until evidence of bowel function - Discontinue fluids, positive balance - 1x 20 mg IV Lasix - IV metoprolol for afib - Epidural CLAM BED WORKER, IV Tylenol - ASA/SQH - PT/OT, OOB as tolerated - Continue home meds - Floor status Pricilla Quiñones MD 06/06/2019 * Angelique Chowdhury RN - 06/05/2019 5:31 PM EST Patient has had a good day. Ambulated around unit twice. Worked with PT. Pain tolerable with epidural. Has not had flatus or BM- KUB obtained this afternoon. NSR/ST on telemetry. Pt wishes to have his bains catheter removed, asked team multiple times today, no order placed to discontinue. BP Remains within parameters and pulses present via palpation. * Pricilla Quiñones MD - 06/05/2019 12:05 PM EST Vascular Surgery - Progress Note Admit Date: 06/03/2019 Hospital Day 2 days status post Procedure(s) (LRB): @REPAIR ILIAC ARTERY ANEURYSM (CHANCE, HYPOGASTRIC OR EIA) (WRVU 26.4) (Bilateral) @REPAIR AORTIC ANEURYSM INVOLVING RENAL OR MESENTERIC VESSELS (WRVU 35.35) (N/A) @ENDARTERECTOMY, ILIAC W OR W/O PATCH GRAFT (WRVU 24.61) @ENDARTERECTOMY, ABD. AORTA W OR W/O PATCH GRAFT (WRVU 27.72) (N/A) ? Findings:??bilateral CHANCE aneurysm, and hypogastric aneurysm. End to end proximal anastomosis, rightend to end with EIA, left end to end with iliac bifurcation (Dacron 18x9 - rifampin soaked). Small transverse colon serosal tear, imbricated with 3-0 silk suture. Palpable bilateral DP. Problem List: Active Hospital Problems Diagnosis ??? AAA (abdominal aortic aneurysm) Resolved Hospital Problems No resolved problems to display. Active Non-Hospital Problems Diagnosis ??? Pre-operative exam ??? Iliac artery aneurysm [...] ??? Malignant melanoma of skin ??? Hypertension 24 Hour Events: - Hyperkalemia to 5.3 yesterday, pt asymptomatic - EKG performed, sinus tachycardia to 101, no change from prior studies - Received insulin/D10 and potassium improved to 4.6 - Cr elevated to 2 yesterday, received 1 L NS bolus Subjective: Pt doing well, denies chest pain, SOB, nausea, vomiting, numbness, tingling, weakness, offers no complaints. Pain adequately controlled with epidural CLAM BED WORKER. Bains in place, draining clear/yellow urine.No flatus, no BM. NGT in place with 250cc output recorded. Physical Exam: Last Set of Vitals and range of vitals over past 24 hours: Last value Range last 24 hrs Temperature Temp: 36.6 ??C (97.9 ??F) Temp: [36.5 ??C (97.7 ??F)-37 ??C (98.6 ??F)] Heart Rate Heart Rate: 92 Heart Rate: [86-106] Blood Pressure BP: 140/60 BP: (109-140)/(58-80) Respiratory Rate Resp: 16 Resp: [16-20] SpO2 SpO2: 93 % SpO2: [92 %-95 %] Gen: alert, oriented, conversant, in NAD HEENT: normocephalic, atraumatic, EOMI, PERRLA CV: regular Resp: breathing comfortably on RA, no inc WOB, no wheezes Abd: soft, mild distension, mild TTP around incision, dressings c/d/i Ext: warm, brisk cap refill, non-cyanotic. DP/PT palpable bilaterally Laboratory (Last 24 Hours): Recent Results (from the past 24 hour(s)) BMP w/fasting Glucose Result Value Ref Range Glucose Fasting 121 (H) 65 - 99 mg/dL BUN 34 (H) 10 - 20 mg/dL Creatinine 2.00 (H) 0.80 - 1.50 mg/dL Sodium 142 135 - 145 mmol/L Potassium 5.0 3.5 - 5.0 mmol/L Chloride 111 (H) 98 - 107 mmol/L CO2 22 22 - 31 mmol/L Anion Gap 9 5 - 15 mmol/L Calcium 8.0 (L) 8.5 - 10.5 mg/dL eGFR 32 (L) >=60 mL/min/1.73 m?? eGFR 37 (L) >=60 mL/min/1.73 m?? Hemogram Result Value Ref Range WBC 16.2 (H) 4.0 - 9.5 x10(3)/mcL RBC 3.66 (L) 4.58 - 5.54 x10(6)/mcL Hemoglobin 11.8 (L) 13.7 - 16.5 gm/dL Hematocrit 36.4 (L) 40.5 - 48.5 % MCV 99.5 (H) 82.9 - 93.1 fL MCH 32.2 (H) 27.5 - 32.1 pg MCHC 32.4 32.0 - 35.7 gm/dL Platelets 118 (L) 145 - 357 x10(3)/mcL RDWSD 48.3 (H) 36.0 - 45.0 fL RDWCV 13.3 11.4 - 13.8 % MPV 10.4 7.6 - 12.9 fL nRBC % Auto 0.0 % nRBC Abs Auto 0.000 0.000 - 0.000 x10(3)/mcL Differential, Automated Result Value Ref Range Neutrophils % 88.3 % Neutr Abs (ANC) 14.26 (H) 1.70 - 6.10 x10(3)/mcL Lymphocytes % 4.6 % Lymphocytes Abs 0.7 (L) 0.9 - 3.2 x10(3)/mcL Monocytes % 6.4 % Monocyte Abs 1.0 (H) 0.3 - 0.9 x10(3)/mcL Eosinophils % 0.0 % Eosinophils Abs 0.0 0.0 - 0.4 x10(3)/mcL Basophils % 0.1 % Basophils Abs 0.0 0.0 - 0.1 x10(3)/mcL Immature Gran % 0.60 % Melanie Gran Abs 0.09 (H) 0.00 - 0.04 x10(3)/mcL Creatinine, urine, random Result Value Ref Range U Creatinine 110 mg/dL Electrolytes, urine, random Result Value Ref Range U Sodium 82 mmol/L U Potassium 58 mmol/L U Chloride 85 mmol/L POCT Glucose Result Value Ref Range POC Glucose 116 65 - 199 mg/dL POCT Glucose Result Value Ref Range POC Glucose 122 65 - 199 mg/dL POCT Glucose Result Value Ref Range POC Glucose 87 65 - 199 mg/dL Basic Metabolic Panel (non-fasting) Result Value Ref Range Glucose Lvl 102 65 - 199 mg/dL BUN 30 (H) 10 - 20 mg/dL Creatinine 1.87 (H) 0.80 - 1.50 mg/dL Sodium 142 135 - 145 mmol/L Potassium 4.6 3.5 - 5.0 mmol/L Chloride 111 (H) 98 - 107 mmol/L CO2 22 22 - 31 mmol/L Anion Gap 9 5 - 15 mmol/L Calcium 8.0 (L) 8.5 - 10.5 mg/dL eGFR 35 (L) >=60 mL/min/1.73 m?? eGFR 40 (L) >=60 mL/min/1.73 m?? Magnesium Result Value Ref Range Magnesium 0.70 0.69 - 1.07 mmol/L POCT Glucose Result Value Ref Range POC Glucose 101 65 - 199 mg/dL BMP w/fasting Glucose Result Value Ref Range Glucose Fasting 109 (H) 65 - 99 mg/dL BUN 28 (H) 10 - 20 mg/dL Creatinine 1.70 (H) 0.80 - 1.50 mg/dL Sodium 142 135 - 145 mmol/L Potassium 4.8 3.5 - 5.0 mmol/L Chloride 112 (H) 98 - 107 mmol/L CO2 24 22 - 31 mmol/L Anion Gap 6 5 - 15 mmol/L Calcium 7.8 (L) 8.5 - 10.5 mg/dL eGFR 39 (L) >=60 mL/min/1.73 m?? eGFR 45 (L) >=60 mL/min/1.73 m?? Hemogram Result Value Ref Range WBC 13.6 (H) 4.0 - 9.5 x10(3)/mcL RBC 3.12 (L) 4.58 - 5.54 x10(6)/mcL Hemoglobin 10.1 (L) 13.7 - 16.5 gm/dL Hematocrit 30.8 (L) 40.5 - 48.5 % MCV 98.7 (H) 82.9 - 93.1 fL MCH 32.4 (H) 27.5 - 32.1 pg MCHC 32.8 32.0 - 35.7 gm/dL Platelets 107 (L) 145 - 357 x10(3)/mcL RDWSD 49.3 (H) 36.0 - 45.0 fL RDWCV 13.5 11.4 - 13.8 % MPV 10.5 7.6 - 12.9 fL nRBC % Auto 0.0 % nRBC Abs Auto 0.000 0.000 - 0.000 x10(3)/mcL Differential, Automated Result Value Ref Range Neutrophils % 88.5 % Neutr Abs (ANC) 12.01 (H) 1.70 - 6.10 x10(3)/mcL Lymphocytes % 3.8 % Lymphocytes Abs 0.5 (L) 0.9 - 3.2 x10(3)/mcL Monocytes % 6.6 % Monocyte Abs 0.9 0.3 - 0.9 x10(3)/mcL Eosinophils % 0.2 % Eosinophils Abs 0.0 0.0 - 0.4 x10(3)/mcL Basophils % 0.2 % Basophils Abs 0.0 0.0 - 0.1 x10(3)/mcL Immature Gran % 0.70 % Melanie Gran Abs 0.10 (H) 0.00 - 0.04 x10(3)/mcL Assessment: Storm Olivares is a 74 year old male with PMH CAD, angina, [place], COPD, smoker now POD2 s/p open AAA repair, doing well post-operatively. Pain well controlled with epidural CLAM BED WORKER and IV Tylenol. Pt remains NPO with NGT to wall suction, moderate output and now patient has abdominal distension, tenderness and no evidence of ROBF, plan for KUB and will keep NGT in place. Cr downtrending after fluids, will continue to monitor labs to guide resuscitation. Plan: - Labs BID - KUB - NPO with NGT, maintain until evidence of bowel function - Continue mIVF @ 100cc/hr - Epidural CLAM BED WORKER, IV Tylenol - ASA/SQH - PT/OT, OOB as tolerated - Continue home meds Pricilla Quiñones MD 06/05/2019 * Fredis Thompson MD - 06/05/2019 9:17 AM EST Acute Pain Service - Epidural Daily Management VITAL SIGNS: Visit Vitals BP 127/64 Pulse 94 Temp 36.5 ??C (97.7 ??F) (Oral) Resp 18 Ht 175.3 cm (5' 9.02) Wt 102.5 kg (226 lb) SpO2 92% BMI 33.36 kg/m?? Body mass index is 33.36 kg/m??. Labs: WBC Date Value Ref Range Status 06/04/2019 16.2 (H) 4.0 - 9.5 x10(3)/mcL Final Hemoglobin Date Value Ref Range Status 06/04/2019 11.8 (L) 13.7 - 16.5 gm/dL Final Hematocrit Date Value Ref Range Status 06/04/2019 36.4 (L) 40.5 - 48.5 % Final Platelets Date Value Ref Range Status 06/04/2019 118 (L) 145 - 357 x10(3)/mcL Final Operative Procedures: Procedure(s): @REPAIR ILIAC ARTERY ANEURYSM (CHANCE, HYPOGASTRIC OR EIA) (WRVU 26.4) @REPAIR AORTIC ANEURYSM INVOLVING RENAL OR MESENTERIC VESSELS (WRVU 35.35) @ENDARTERECTOMY, ILIAC W OR W/O PATCH GRAFT (WRVU 24.61) @ENDARTERECTOMY, ABD. AORTA W OR W/O PATCH GRAFT (WRVU 27.72) APS Opioid Administration Hx All administrations since 06/04/2019 are shown below each listed medication. Other Order Route Rate Dose Action Date HYDROmorphone (Dilaudid) 10 mcg/mL, BUpivacaine (Marcaine) 0.1% (0.1 mg/mL) (1/10%) in sodium chloride 0.9% 250 mL epidural Epidural 6 mL/hr 6 mL/hr New Bag 06/05/2019 Epidural 6 mL/hr 6 mL/hr New Bag 06/04/2019 CT APS EPIDURAL ROUNDIN06/05/2019 9:18 AM Average Numeric Rating Pain Score (0-10):: 2 Post-Op Day:: 2 Epidural Day:: 3 Epidural Infusion (solution):: HYDROmorphone 10 mcg/mL and BUpivacaine 0.1% Epidural Infusion Rate (mL/hr): 6 PCEA Dose (mL): 3 Out of Bed: Yes Ambulation: No Able to Use Incentive Spirometry: Yes Escalation of Care: Yes Tolerating Regular Diet: No Epidural Catheter Removed (Intact unless noted in Comments): No Notes/Plan: Terry is doing well this morning. He has minimal pain at his surgical site. He continues with his nasogastric tube and denies ROBF. We made no changes to his epidural and will begin to wean once his diet has been advanced and he has some ROBF. Recommend added Ofirmev until he can take oral acetaminophen. IALLY RN, have performed the documentation for this encounter in the presence of and acting as a scribe for Dr. Thompson. [facility] Attending (Jay) Patient seen on daily rounds. I agree with the above assessment and plan. [facility] Nurse: Ally Farrar RN Attending Physician:: Fredis Thompson MD * Pricilla Quiñones MD - 06/04/2019 10:25 AM EST Vascular Surgery - Progress Note Admit Date: 06/03/2019 Hospital Day 1 day status post: Procedure(s) (LRB): @REPAIR ILIAC ARTERY ANEURYSM (CHANCE, HYPOGASTRIC OR EIA) (WRVU 26.4) (Bilateral) @REPAIR AORTIC ANEURYSM INVOLVING RENAL OR MESENTERIC VESSELS (WRVU 35.35) (N/A) @ENDARTERECTOMY, ILIAC W OR W/O PATCH GRAFT (WRVU 24.61) @ENDARTERECTOMY, ABD. AORTA W OR W/O PATCH GRAFT (WRVU 27.72) (N/A) ? Findings:??bilateral CHANCE aneurysm, and hypogastric aneurysm. End to end proximal anastomosis, rightend to end with EIA, left end to end with iliac bifurcation (Dacron 18x9 - rifampin soaked). Small transverse colon serosal tear, imbricated with 3-0 silk suture. Palpable bilateral DP. Problem List: Active Hospital Problems Diagnosis ??? AAA (abdominal aortic aneurysm) Resolved Hospital Problems No resolved problems to display. Active Non-Hospital Problems Diagnosis ??? Pre-operative exam ??? Iliac artery aneurysm [...] ??? Malignant melanoma of skin ??? Hypertension 24 Hour Events: - Pt doing well post-operatively - Lactates 1.9, 1.2 post-op - Hgb 12.8, 13.0 post-op - NPO with NGT to suction, output 100cc Subjective: Pt doing well, denies chest pain, SOB, nausea, vomiting, numbness, tingling, weakness, offers no complaints. Pain adequately controlled with epidural CLAM BED WORKER. Bains in place, draining clear/yellow urine.Passing flatus, no BM. Physical Exam: Last Set of Vitals and range of vitals over past 24 hours: Last value Range last 24 hrs Temperature Temp: 36.8 ??C (98.2 ??F) Temp: [36.4 ??C (97.5 ??F)-37 ??C (98.6 ??F)] Heart Rate Heart Rate: 96 Heart Rate: [84-131] Blood Pressure BP: 120/65 BP: (96-155)/(39-123) Respiratory Rate Resp: 19 Resp: [9-32] SpO2 SpO2: 97 % SpO2: [89 %-97 %] Gen: alert, oriented, conversant, in NAD HEENT: normocephalic, atraumatic, EOMI, PERRLA CV: regular Resp: breathing comfortably on RA, no inc WOB, no wheezes Abd: soft, non-distended, mild TTP around incision, dressings c/d/i Ext: warm, brisk cap refill, non-cyanotic. DP/PT palpable bilaterally Laboratory (Last 24 Hours): Recent Results (from the past 24 hour(s)) BLOOD GAS 2 ARTERIAL Result Value Ref Range pH Art 7.34 (L) 7.35 - 7.45 pCO2 Art 40 35 - 45 mmHg pO2 Art 96 85 - 104 mmHg HCO3 Art 21.0 20.0 - 26.0 mmol/L BE Art -4.8 (L) -3.0 - 3.0 mmol/L Hgb Blood Gas 13.5 (L) 13.7 - 16.5 gm/dL O2HB Art 96.1 94.0 - 97.0 % COHB Art 0.9 % METHB Art 0.1 <=1.5 % Na Whole Blood 136 135 - 145 mmol/L K Whole Blood 4.0 3.5 - 5.0 mmol/L ICa Whole Blood 1.10 (L) 1.15 - 1.33 mmol/L CL Whole Blood 108 (H) 98 - 107 mmol/L Gluc Whole Bld 126 65 - 199 mg/dL Lactate WB 1.6 0.5 - 2.2 mmol/L FIO2 Art 40 % PF Ratio Art 240 BLOOD GAS 2 ARTERIAL Result Value Ref Range pH Art 7.35 7.35 - 7.45 pCO2 Art 38 35 - 45 mmHg pO2 Art 246 (H) 85 - 104 mmHg HCO3 Art 20.5 20.0 - 26.0 mmol/L BE Art -5.1 (L) -3.0 - 3.0 mmol/L Hgb Blood Gas 12.1 (L) 13.7 - 16.5 gm/dL O2HB Art 98.6 (H) 94.0 - 97.0 % COHB Art 0.4 % METHB Art 0.3 <=1.5 % Na Whole Blood 131 (L) 135 - 145 mmol/L K Whole Blood 4.1 3.5 - 5.0 mmol/L ICa Whole Blood 1.06 (L) 1.15 - 1.33 mmol/L CL Whole Blood 107 98 - 107 mmol/L Gluc Whole Bld 110 65 - 199 mg/dL Lactate WB 1.9 0.5 - 2.2 mmol/L FIO2 Art 70 % PF Ratio Art 351 BLOOD GAS 2 ARTERIAL Result Value Ref Range pH Art 7.25 (CRIT) 7.35 - 7.45 pCO2 Art 43 35 - 45 mmHg pO2 Art 397 (H) 85 - 104 mmHg HCO3 Art 18.4 (L) 20.0 - 26.0 mmol/L BE Art -8.8 (L) -3.0 - 3.0 mmol/L Hgb Blood Gas 11.7 (L) 13.7 - 16.5 gm/dL O2HB Art 98.8 (H) 94.0 - 97.0 % COHB Art 0.3 % METHB Art 0.3 <=1.5 % Na Whole Blood 134 (L) 135 - 145 mmol/L K Whole Blood 4.5 3.5 - 5.0 mmol/L ICa Whole Blood 1.50 (H) 1.15 - 1.33 mmol/L CL Whole Blood 110 (H) 98 - 107 mmol/L Gluc Whole Bld 103 65 - 199 mg/dL Lactate WB 3.4 (H) 0.5 - 2.2 mmol/L FIO2 Art 90 % PF Ratio Art 441 BLOOD GAS 2 ARTERIAL Result Value Ref Range pH Art 7.35 7.35 - 7.45 pCO2 Art 35 35 - 45 mmHg pO2 Art 421 (H) 85 - 104 mmHg HCO3 Art 18.9 (L) 20.0 - 26.0 mmol/L BE Art -6.7 (L) -3.0 - 3.0 mmol/L Hgb Blood Gas 11.5 (L) 13.7 - 16.5 gm/dL O2HB Art 98.7 (H) 94.0 - 97.0 % COHB Art 0.3 % METHB Art 0.3 <=1.5 % Na Whole Blood 135 135 - 145 mmol/L K Whole Blood 4.6 3.5 - 5.0 mmol/L ICa Whole Blood 1.25 1.15 - 1.33 mmol/L CL Whole Blood 109 (H) 98 - 107 mmol/L Gluc Whole Bld 89 65 - 199 mg/dL Lactate WB 2.7 (H) 0.5 - 2.2 mmol/L FIO2 Art 90 % PF Ratio Art 468 BLOOD GAS 2 ARTERIAL Result Value Ref Range pH Art 7.33 (L) 7.35 - 7.45 pCO2 Art 34 (L) 35 - 45 mmHg pO2 Art 438 (H) 85 - 104 mmHg HCO3 Art 17.5 (L) 20.0 - 26.0 mmol/L BE Art -8.3 (L) -3.0 - 3.0 mmol/L Hgb Blood Gas 11.8 (L) 13.7 - 16.5 gm/dL O2HB Art 99.3 (H) 94.0 - 97.0 % COHB Art 0.1 % METHB Art 0.0 <=1.5 % Na Whole Blood 134 (L) 135 - 145 mmol/L K Whole Blood 5.0 3.5 - 5.0 mmol/L ICa Whole Blood 1.42 (H) 1.15 - 1.33 mmol/L CL Whole Blood 110 (H) 98 - 107 mmol/L Gluc Whole Bld 92 65 - 199 mg/dL Lactate WB 3.2 (H) 0.5 - 2.2 mmol/L FIO2 Art 90 % PF Ratio Art 487 BLOOD GAS 2 ARTERIAL Result Value Ref Range pH Art 7.35 7.35 - 7.45 pCO2 Art 37 35 - 45 mmHg pO2 Art 126 (H) 85 - 104 mmHg HCO3 Art 19.7 (L) 20.0 - 26.0 mmol/L BE Art -6.0 (L) -3.0 - 3.0 mmol/L Hgb Blood Gas 12.3 (L) 13.7 - 16.5 gm/dL O2HB Art 97.5 (H) 94.0 - 97.0 % COHB Art 0.4 % METHB Art 0.3 <=1.5 % Na Whole Blood 136 135 - 145 mmol/L K Whole Blood 4.9 3.5 - 5.0 mmol/L ICa Whole Blood 1.28 1.15 - 1.33 mmol/L CL Whole Blood 111 (H) 98 - 107 mmol/L Gluc Whole Bld 97 65 - 199 mg/dL Lactate WB 2.6 (H) 0.5 - 2.2 mmol/L Hemogram Result Value Ref Range WBC 14.9 (H) 4.0 - 9.5 x10(3)/mcL RBC 4.08 (L) 4.58 - 5.54 x10(6)/mcL Hemoglobin 12.8 (L) 13.7 - 16.5 gm/dL Hematocrit 40.8 40.5 - 48.5 % MCV 100.0 (H) 82.9 - 93.1 fL MCH 31.4 27.5 - 32.1 pg MCHC 31.4 (L) 32.0 - 35.7 gm/dL Platelets 155 145 - 357 x10(3)/mcL RDWSD 48.1 (H) 36.0 - 45.0 fL RDWCV 13.0 11.4 - 13.8 % MPV 10.6 7.6 - 12.9 fL nRBC % Auto 0.0 % nRBC Abs Auto 0.000 0.000 - 0.000 x10(3)/mcL BMP w/fasting Glucose Result Value Ref Range Glucose Fasting 127 (H) 65 - 99 mg/dL BUN 19 10 - 20 mg/dL Creatinine 1.33 0.80 - 1.50 mg/dL Sodium 144 135 - 145 mmol/L Potassium 5.2 (H) 3.5 - 5.0 mmol/L Chloride 112 (H) 98 - 107 mmol/L CO2 21 (L) 22 - 31 mmol/L Anion Gap 11 5 - 15 mmol/L Calcium 8.8 8.5 - 10.5 mg/dL eGFR 52 (L) >=60 mL/min/1.73 m?? eGFR 61 >=60 mL/min/1.73 m?? Lactate, whole blood, send to lab ([facility] [place] [place] [place]) Result Value Ref Range Lactate WB 2.1 0.5 - 2.2 mmol/L Hemogram Result Value Ref Range WBC 16.5 (H) 4.0 - 9.5 x10(3)/mcL RBC 3.97 (L) 4.58 - 5.54 x10(6)/mcL Hemoglobin 13.0 (L) 13.7 - 16.5 gm/dL Hematocrit 39.6 (L) 40.5 - 48.5 % MCV 99.7 (H) 82.9 - 93.1 fL MCH 32.7 (H) 27.5 - 32.1 pg MCHC 32.8 32.0 - 35.7 gm/dL Platelets 141 (L) 145 - 357 x10(3)/mcL RDWSD 47.8 (H) 36.0 - 45.0 fL RDWCV 13.0 11.4 - 13.8 % MPV 10.6 7.6 - 12.9 fL nRBC % Auto 0.0 % nRBC Abs Auto 0.000 0.000 - 0.000 x10(3)/mcL Lactate, whole blood, send to lab ([facility] [place] [place] [place]) Result Value Ref Range Lactate WB 1.9 0.5 - 2.2 mmol/L Assessment: Storm Olivares is a 74 year old male with PMH CAD, angina, [place], COPD, smoker now POD1 s/p open AAA repair, doing well post-operatively. Pain moderately well controlled with epidural [employer]. Pt remainsNPO with NGT to wall suction, minimal output and pt denies any nausea, vomiting. No BM yet. Lactateand Hgb reassuring, will continue to monitor labs to guide resuscitation. 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 Body mass index is 33.92 kg/m??. Labs: WBC Date Value Ref Range Status 06/03/2019 16.5 (H) 4.0 - 9.5 x10(3)/mcL Final Hemoglobin Date Value Ref Range Status 06/03/2019 13.0 (L) 13.7 - 16.5 gm/dL Final Hematocrit Date Value Ref Range Status 06/03/2019 39.6 (L) 40.5 - 48.5 % Final Platelets Date Value Ref Range Status 06/03/2019 141 (L) 145 - 357 x10(3)/mcL Final Operative Procedures: Procedure(s): @REPAIR ILIAC ARTERY ANEURYSM (CHANCE, HYPOGASTRIC OR EIA) (WRVU 26.4) @REPAIR AORTIC ANEURYSM INVOLVING RENAL OR MESENTERIC VESSELS (WRVU 35.35) @ENDARTERECTOMY, ILIAC W OR W/O PATCH GRAFT (WRVU 24.61) @ENDARTERECTOMY, ABD. AORTA W OR W/O PATCH GRAFT (WRVU 27.72) APS Opioid Administration Hx All administrations since 06/03/2019 are shown below each listed medication. Other Order Route Rate Dose Action Date HYDROmorphone (Dilaudid) 10 mcg/mL, BUpivacaine (Marcaine) 0.1% (0.1 mg/mL) (1/10%) in sodium chloride 0.9% 250 mL epidural Epidural 6 mL/hr 6 mL/hr New Bag 06/04/2019 Epidural 6 mL/hr 6 mL/hr New Bag 06/03/2019 HYDROmorphone (DILAUDID) injection Intravenous 0.2 mg Given 06/03/2019 HYDROmorphone (Dilaudid) 10 mcg/mL, BUpivacaine (Marcaine) 0.1% (0.1 mg/mL) (1/10%) in sodium chloride 0.9% 250 mL epidural Epidural 6 mL Given 06/03/2019 HYDROmorphone (Dilaudid) 10 mcg/mL, BUpivacaine (Marcaine) 0.1% (0.1 mg/mL) (1/10%) in sodium chloride 0.9% 250 mL epidural Epidural 6 mL/hr 6 mL/hr New Bag 06/03/2019 HYDROmorphone (DILAUDID) injection Intravenous 0.6 mg Given 06/03/2019 Intravenous 0.4 mg Given 06/03/2019 fentaNYL 50 mcg/mL multi-dose injection Intravenous 50 mcg Given 06/03/2019 Intravenous 50 mcg Given 06/03/2019 HYDROmorphone (DILAUDID) injection 0.2 mg Epidural 0.2 mg Given 06/03/2019 fentaNYL (PF) 50mcg/mL injection Intravenous 25 mcg Given 06/03/2019 Intravenous 25 mcg Given 06/03/2019 DH AN APS EPIDURAL ROUNDIN06/04/2019 8:06 AM Average Numeric Rating Pain Score (0-10):: 3 Post-Op Day:: 1 Epidural Day:: 2 Epidural Infusion (solution):: HYDROmorphone 10 mcg/mL and BUpivacaine 0.1% Epidural Infusion Rate (mL/hr): 6 PCEA Dose (mL): 3 Out of Bed: No Ambulation: No Able to Use Incentive Spirometry: Yes Escalation of Care: No Tolerating Regular Diet: No Epidural Catheter Removed (Intact unless noted in Comments): No Notes/Plan: Storm is doing well, overall, this morning. He states that his pain is well- controlled, except when coughing or when he hiccups. He has received 3 of 4 PCEA demand doses postoperatively. Storm states that he had a long night as he was constantly awoken by his heart rate alarm. Pain was not an issue overnight. He is NPO and has an NG tube in place and he has not had ROBF. Storm has not been out of bed, yet, but plans to later today. He denies numbness, tingling, itching, or nausea. His epidural insertion site is free from signs of infection. Plan: Continue current epidural regimen until diet is advanced. IMAGDA RN, have performed the documentation for this encounter in the presence of andacting as a scribe for Dr. rFedis Thomposn. APS Attending (Jay) Patient seen on daily rounds. I agree with the above assessment and plan. APS Nurse: Magda Miller RN Attending Physician:: Fredis Thompson MD * Katina Shaffer RN - 06/04/2019 6:30 AM EST Storm Olivares had an uneventful and also unrestful night. A/Ox4, VSS, Afebrile. No acute events overnight. No signs or symptoms of distress, denies SOB, numbness or tingling. Pain managed adequately with epidural. Irregular HR at times, sinus tachy, possible bundle branch block, REHAB TECHNICIAN reported team aware. NGT to LCWS Voiding adequate amounts, bains in place. Midline dressing with dried drainage, unchanged Y * Katina Shaffer RN - 06/04/2019 3:30 AM EST Storm Olivares arrived to the PCU from the PACU. Oriented to room, morelia initiated, call sagastume within reach, educated on importance of using prior to getting OOB, AVSS, Pt reported his belongings were missing- apparently all belongings were broughthome by son, bed locked in low position, purposeful hourly rounding, bed/chair alarm on. * Alma Dc RN - 06/03/2019 11:24 PM EST 2230 assumed care of patient as no PCU beds are available VSS pain controlled with Epidural Occasionally agitated wanting water Mouth swabs given Able to rest beds being switched to make PCU bed for pnt 0130 report to TEST FIXTURE DESIGNER * Tariq Fagan MD - 06/03/2019 8:42 PM EST Vascular Surgery Post Op Check Storm Olivares is a 74 y.o. male status post: Procedure(s) (LRB): @REPAIR ILIAC ARTERY ANEURYSM (CHANCE, HYPOGASTRIC OR EIA) (WRVU 26.4) (Bilateral) @REPAIR AORTIC ANEURYSM INVOLVING RENAL OR MESENTERIC VESSELS (WRVU 35.35) (N/A) @ENDARTERECTOMY, ILIAC W OR W/O PATCH GRAFT (WRVU 24.61) @ENDARTERECTOMY, ABD. AORTA W OR W/O PATCH GRAFT (WRVU 27.72) (N/A) ?? Findings: bilateral CHANCE aneurysm, and hypogastric aneurysm. End to end proximal anastomosis, right end to end with EIA, left end to end with iliac bifurcation (Dacron 18x9 - rifampin soaked). Small transverse colon serosal tear, imbricated with 3-0 silk suture. Palpable bilateral DP. Subjective: No nausea/vomiting, chest pain, SOB, pain well controlled, offers no complaints. Objective: Temp: [36.4 ??C (97.5 ??F)-36.8 ??C (98.2 ??F)] Heart Rate: [84-131] Resp: [12-32] BP: (111-155)/(45-123) SpO2: [89 %-96 %] Heart Rate from SpO2: [83 bpm-116 bpm] I/O last 3 completed shifts: In: 7475 [I.V.:6000; Blood:1475] Out: 3388 [Urine:655; Blood:2733] No intake/output data recorded. Physical Exam General: NAD, resting comfortably HEENT: PERRL, anicteric sclerae CVS: Regular rate, no murmurs rubs or gallops Pulm: Clear bilaterally Abd: soft, non tender, non distended Ext: RLE: No edema. Skin warm and pink. No telangiectasias or varicosities. No tissue loss. Brisk capillary refill. Diminished sensation in R saphenous dermatomal distribution. LLE: No edema. Skin warm and pink. No telangictasias or varicosities. No tissue loss. Brisk capillary refill Neuro: CN 2-12 grossly intact, nonfocal, moving all extremities. Sensation intact in extremities bilaterally symmetric. Motor function intact in extremities, bilaterally symmetric. Vascular Exam: R L DP 2/2 2/2 PT 2/2 2/2 Assessment and Plan Storm Olivares is a 74 y.o. male status post open AAA repair, currently in stable condition and recovering well. - pain well controlled - hemodynamically stable - CTM UOP, none recorded in PACU - Q4H CBC and lactate overnight, then Q12H labs - NPO with NGT to low continuous wall suction - Hold SQH overnight - Periop Ancef - Dilaudid CLAM BED WORKER Tariq Fagan MD * Capri Marshall RN - 06/03/2019 5:51 PM EST 1715 Pt to PACU # 4. A-line zeroed and flushed. Labs drawn and sent. Cordis in right IJ flushed. Metoprolol given for HR 131. Pt wakes, states name, denies pain. Epidural intact and running @ 6 ml/hr. 1745 Pt Spo2 94% on 4L NC . CXray done. VSS. 1900 VSS Pt denies pain. R forearm # 18 placed. Son in to see patient. 1999Anesthesia to bedside to assess numbness/tingling. Pt reports sensation intact to left lower extremity presently. 2100. Labs sent. Pt wakes easily. Reporting pain 7/10 when moving. Given PCEA button and instructedin using it. VSS Dr. Lazo to bedside. R. IJ catheter removed without complication. 2220 A-line removed without complication. Report to Nagi Treviño RN. documented in this encounter H&P Notes * Helio Duke MD - 06/03/2019 6:48 AM EST Vascular Surgery Interval H&P Update There has been no interval change in the patient's history and physical since he was seenby me in clinic. Patient Vitals for the past 8 hrs: BP Temp Pulse Resp SpO2 Weight 06/03/19 0622 180/67 36.4 ??C (97.5 ??F) 58 16 96 % 94.5 kg (208 lb 6.4 oz) Gen: NAD Neuro: A&O x 3 Resp: CTA-B, no w/c CVS: rrr Abd: soft, NTND Vasc: palpable AAA, femoral, and radial pulses Plan: Open repair of AAA and iliac aneurysms. Discussed risks and benefits. Consent obtained. Helio Duke MD, MS Section of Vascular Surgery documented in this encounter Miscellaneous Notes * Consult Note - Patrick Lizama MD - 06/09/2019 7:00 PM EST Images from the original note were not included. DERMATOLOGY - INPATIENT CONSULT NOTE Dermatology Resident: Patrick Lizama MD Place of Service: Inpatient Unit Reason for Consult: We are seeing Mr. Storm Olivares at the request of Helio Duke MD for the evaluation of back rash sustained post-op, concern from OR versus additional cause. Recommendations. I have personally reviewed the available records, interviewed, and examined the patient. History of Present Illness: Mr. Storm Olivares is a 74 y.o. male with past medical history of HTN, HLD, BPH, and melanoma who is POD 6 from an open transperitoneal AAA repair. Patient has been doing well and progressing appropriately after his surgery. He has developed a tender rash on his back that he describes as a burning sensation. He is not sure exactly how long his back has been hurting, but he thinks since the OR. His back does not itch at all but feels like a bad sunburn. He has not seen his back and does not know how it has been changing over the last couple of days. Patient denies any known allergies and has never had any similar lesions before. Past Dermatologic History: Seborrheic dermatitis Basal cell carcinoma Melanoma Past Medical History: History reviewed. No pertinent past medical history. Past Surgical History: Past Surgical History: Procedure Laterality Date ??? 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 MAIN OR ??? PRO REANEURYSM/GRFT INS, ILIAC Bilateral 06/03/2019 @REPAIR ILIAC ARTERY ANEURYSM (CHANCE, HYPOGASTRIC OR EIA) (WRVU 26.4) performed by Helio Duke MD at [facility] MAIN OR ??? PRO THROMBOENDARTECTMY ABD AORTA N/A 06/03/2019 @ENDARTERECTOMY, ABD. AORTA W OR W/O PATCH GRAFT (WRVU 27.72) performed by Helio Duke MD at [facility] MAIN OR ??? PRO THROMBOENDARTECTMY ILIAC 06/03/2019 @ENDARTERECTOMY, ILIAC W OR W/O PATCH GRAFT (WRVU 24.61) performed by Helio Duke MD at [facility] MAIN OR Medications Prior to Admission: Medications Prior to Admission Medication Sig Dispense Refill Last Dose ??? oxybutynin XL (Ditropan-XL) 5 mg Tablet Extended Rel 24 hr 06/01/2019 at Unknown time ??? pimecrolimus (ELIDEL) 1 % Cream Apply 1-2 times daily to affected facial and presternal chest sites 30 g 5 06/02/2019 at Unknown time ??? amLODIPine (NORVASC) 5 mg Tablet Take 1 tablet by mouth daily. 30 tablet 0 06/01/2019 at Unknown time ??? mirabegron 50 mg Tablet Sustained Release 24 hr Take by mouth. 06/03/2019 at Unknown time ??? terazosin (HYTRIN) 5 mg Capsule Bedtime 06/01/2019 at Unknown time ??? atorvastatin (LIPITOR) 80 mg Tablet Daily 06/01/2019 at Unknown time ??? ketoconazole (NIZORAL) 2 % Shampoo Apply as shampoo once daily (three months supply) 360 mL 3 06/01/2019 at Unknown time Current Medications: Infusions: Scheduled medications: ??? aspirin 81 mg Oral Daily ??? ceFAZolin 2 g Intravenous Q8H ??? metoprolol 5 mg Intravenous Q6H PRN medications: Current Facility-Administered Medications Medication Dose Route Frequency ??? oxyCODONE (Roxicodone) tablet 5-10 mg 5-10 mg Oral Q4H PRN Or ??? oxyCODONE (Roxicodone) tablet 10-15 mg 10-15 mg Oral Q4H PRN ??? acetaminophen (Tylenol) tablet 650 mg 650 mg Oral Q6H PRN ??? bisacodyL (Dulcolax) suppository 10 mg 10 mg Rectal Daily PRN ??? ondansetron (Zofran) tablet 4-8 mg 4-8 mg Oral Q8H PRN Or ??? ondansetron (ZOFRAN) injection 4-8 mg 4-8 mg Intravenous Q8H PRN ??? phenol 1.4% (CHLORASEPTIC) spray 1 spray 1 spray Oral Q4H PRN ??? gelatin adsorbable (GELFOAM) sponge Once PRN ??? thrombin (Bovine) (THROMBINAR) kit Once PRN ??? labetalol (NORMODYNE,TRANDATE) injection 10 mg 10 mg Intravenous Q1H PRN ??? hydrALAZINE (APRESOLINE) injection 10 mg 10 mg Intravenous Q1H PRN Allergies: Allergies Allergen Reactions ??? Hydrochlorothiazide ??? Lisinopril Family History: History reviewed. No pertinent family history. Social History and Habits: reports that he quit smoking about 3 years ago. His smoking use included cigarettes. He has a 50.00pack-year smoking history. He has never used smokeless tobacco. He reports current alcohol use of about 14.0 standard drinks of alcohol per week. He reports that he does not use drugs. Review of Systems: Per HPI Physical Exam: Vital Signs: Last Set of Vitals and range of vitals over past 24 hours: Last value Range last 24 hrs Temperature Temp: 36.9 ??C (98.4 ??F) Temp: [36.1 ??C (97 ??F)-37.4 ??C (99.3 ??F)] Heart Rate Heart Rate: 64 Heart Rate: [62-94] Blood Pressure BP: 177/69 BP: (144-177)/(49-69) Respiratory Rate Resp: 20 Resp: [16-20] SpO2 SpO2: 93 % SpO2: [92 %-95 %] Examination: - Constitutional: Patient was alert and oriented x 3, resting comfortably in bed.. - Skin: A partial skin exam was performed. This includes examination of the skin of the face, ears,neck, chest, axillae, left and right upper extremities, hands, back, and buttocks, all of which were normal with significant findings of the exam as stated below in the Assessment and Plan. Assessment/Plan Storm Olivares is a 74 y.o. male with past medical history of HTN, HLD, BPH, and melanoma who is POD 6 from an open transperitoneal AAA repair and has developed a burning rash on his back that spares areas that seem to have been covered either during or after his operation. Favor irritant contact dermatitis Exam: sharply demarcated bright red geometric plaques with crusting along the mid back that spares two connected rectangular areas. - Given the sharply demarcated geometric distribution on this patient's back, this is an outside to inside process meaning there was something external that caused this rash, likely an irritant contact dermatitis. It is difficult to say to what this patient has come into contact. The lower rectangle appears to be where the patient had an epidural placed with bandage, and the superior rectangle would also represent something similarly in direct contact with the skin, possibly a grounding pad or different bandage. These areas likely served to protect the skin from direct contact with an irritant, such a recently wiped down bed or soap that was not completely removed. - Discussed with patient that these areas should heal and the burning sensation resolve over the next couple of weeks. - Patient should shower daily and clean the area gently with only mild soap and water. - Recommend augmented betamethasone BID x 14 days. - If patient's rash does not resolve within 2 weeks, patient should call dermatology at [phone] to discuss a follow up appointment. Verbal consent was given by patient to obtain and chart the following pictures: Follow-up: Dermatology will sign off for now. Please do not hesitate to contact us if you have any questions or concerns. Impression and Recommendations discussed with primary team on 06/09/19. Patrick Lizama MD Resident in Dermatology [facility] Pager: [phone] Patient seen and evaluated with staff Quality Project Manager: Gabriela Johnson MD Section of Dermatology [facility] Level of Resident Supervision: Direct Supervision (The supervising physician is physically present with the resident and patient). Associated attestation - Gabriela Johnson MD - 06/10/2019 9:34 AM EST I directly supervised Dr. Lizama in the inpatient consultation of this patient. I saw and evaluated this patient with Dr. Lizama. He presented the history and physical exam detailsto me, then we saw the patient together and I confirmed these findings. I agree with details as written. My physical examination confirms Dr. Lizama' findings. The assessment and plan were formulated in discussion with me at the time of visit and I agree with them as documented. Given the well demarcated plaques and superficial erosions seen in the photos, favor an irritant contact dermatitis. Unclear etiology of the irritant but could be cleaning materials that patient cameinto contact with while in the OR. Clear sparing of areas that were covered during surgery. Treat with topical betamethasone ointment and if not clear within 4 weeks advised patient to follow up in dermatology. Gabriela Johnson MD Staff Physician * Plan of Care - Ari Olivia RN - 06/09/2019 2:58 PM EST Problem: Patient Care Overview Goal: Plan of Care Review Outcome: Ongoing (Interventions Implemented as Appropriate) 06/09/19 0753 06/09/19 1012 Plan of Care Review Progress progress toward functional goals is gradual -- Coping/Psychosocial Plan Of Care Reviewed With -- patient OUTCOME EVALUATION NOTE: OUTCOME SUMMARY: Patient able to have a bowel movement today. Epidural removed today by APS team. Full liquid diet ordered. Tolerating well. Ambulated in hallway with this RN. Tolerated well. Ancef IV ordered this afternoon. Denies nausea, no vomiting. Rounded abdomen area but nondistended. Passing flatus. Bowel sounds active. PO PRN pain meds ordered patient rating pain 0/10. Bains cath removed this morning. Patient has had urinary output post bains removal. WOC saw patient this AM regarding reddened, rash area of skin to back. Dermatology in to see patient now. Patient to discharge tomorrow. PLAN MOVING FORWARD: Monitor I and O's Antibiotic therapy INDIVIDUALIZED FALL PREVENTION INTERVENTIONS: Patient-specific fall risk factors per assessment: [current deficits]: Unfamiliar environment, tethering devices Assistance [level of assistance required for transfers and ambulation]: Standby assist Supervision [direct monitoring required during toileting and ADLs]: Eyes on Surveillance [continuous indirect monitoring]: Purposeful rounding, call sagastume within reach, bed alarm Patient-specific fall prevention interventions for sensory deficits provided, if applicable: Yes, lighting adjusted, nonskid socks worn while OOB CPG GOAL OUTCOME EVALUATION: Ongoing * Plan of Care - Gissel Bland OTA - 06/09/2019 2:31 PM EST Occupational Therapy Treatment Note Treatment Number OT: 2 Patient Dx: Storm Olivares is a 74 y.o. 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 AORTA W OR W/O PATCH GRAFT (WRVU 27.72) (N/A) ?? Past Medical History History reviewed. No pertinent past medical history. Past Surgical History Past Surgical History: Procedure Laterality Date ??? PRO REANEURYSM/GRFT INS, ABD AORT W/VISCER N/A 06/03/2019 ?? @REPAIR AORTIC ANEURYSM INVOLVING RENAL OR MESENTERIC VESSELS (WRVU 35.35) performed by Helio Duke MD at [facility] MAIN OR ??? PRO REANEURYSM/GRFT INS, ILIAC Bilateral 06/03/2019 ?? @REPAIR ILIAC ARTERY ANEURYSM (CHANCE, HYPOGASTRIC OR EIA) (WRVU 26.4) performed by Helio Duke MD at [facility] MAIN OR ??? PRO THROMBOENDARTECTMY ABD AORTA N/A 06/03/2019 ?? @ENDARTERECTOMY, ABD. AORTA W OR W/O PATCH GRAFT (WRVU 27.72) performed by Helio Duke MD at [facility] MAIN OR ??? PRO THROMBOENDARTECTMY ILIAC ?? 06/03/2019 ?? @ENDARTERECTOMY, ILIAC W OR W/O PATCH GRAFT (WRVU 24.61) performed by Helio Duke MD at [facility] MAIN OR ? Social History: Patient lives alone Home Setup: multi level home w/ 2 STEVE, 1 rail, able to live on 1 level, FOS w/ 1 rail up to bedroom, walk in shower w/ seat, no shower head or grab bar. DME: None Baseline ADL/Mobility: Independent ?? Precautions/Special Considerations: bains Interval History: Per MD note 06/09/19: No acute events overnight. Patient now passing flatus, no BM yet. Lasix for diuresis, net 2L negative again yesterday. Epidural removed. S: I think I'm going home tomorrow O: Patient seen for therapeutic activities and demonstrated the following: ?? Cognition: ?? Behavior / Mood: alert and cooperative ?? Alert and oriented to: person, place, time and situation ?? Follows commands: multi step, 100% of the time and requires increased time ?? Attention: WFL ?? Safety awareness: fully aware of deficits and good safety precautions Functional Mobility: ?? Supine <> sit: supervision ?? Sit <> stand: supervision w/o device ?? Ambulation: pt ambulated bed <> bathroom w/o device and supervision; No LOB noted ?? Toilet transfer: Supervision w/o device Self Care: ?? Grooming/Hygiene: after set up and sitting upright in bed, pt performed oral care independently;Pt declined oral care in bathroom and stated he preferred performing task EOB ?? Bathing: pt able to stand sink side to perform hand hygiene w/ supervision; No LOB noted ?? Dressing: pt educated and provided sock aide and [employer] store deli manager to promote functional independence while performing LB dressing tasks; pt demonstrated great use of AE and most appreciative ?? Toileting Hygiene: pt attempted to perform however required assist for thoroughness; Provided ptw/ AE (toileting aide) to promote functional independence w/ toileting hygiene. ?? Endurance: ?? Pt tolerated OT session on RA Pain: no pain reported Education: Pt/family/caregiver education ongoing regarding: Role of occupational therapy/rehabilitation, Transfers, Assistive device/technique, Adaptive equipment training, ADL, Positioning, Safety, Precautions/Protocol, Functional Mobility, Activity pacing/Energy conservation, Home Program, Balance, Recommendations and Discharge planning. Staff Communication: Patient status, treatment, and mobility recommendations discussed with nursing/other staff. ASSESSMENT: Pt seen for Occupational Therapy interventions. Session focused on promoting activity tolerance during ADL tasks to promote self-care health management and mobilization of functional household distances to increase endurance and strength. Pt tolerated OT session well today and is makinggreat progress towards his OT goals. Pt demonstrating great insight into her abilities and limitations. Pt safe to d/c home when medically ready. Pt will benefit from ongoing therapeutic interventions to achieve pt's and therapy goals Anticipated Discharge Disposition: home with assist, home with home health Equipment Recommendations: none Daily schedule / Staff Recommendations: ?? Utilize upright chair position using bed features or transfer to recliner chair as appropriate with Ax1 w/ FWW, ambulate as tolerated ?? Encourage participation in ADL's by providing set up A on tray table and physical assist only asneeded. Occupational Therapy Goals: To be achieved by 06/19/2019. 1.) Pt will complete LB dressing w/ supervision using AE. MET 2.) Pt will complete simple kitchen task w/ SBA. 3.) Pt will complete 2 grooming tasks standing at sink w/ SBA MET Therapy Frequency: 1-3 more visits Total Evaluation Minutes, Occupational Therapy: 32(schm x 2 ) Pager: [phone] NICOLETTE VALDEZ Occupational Therapy Rehabilitation Department * Consult Note - Arpan Mora RN - 06/09/2019 9:19 AM EST Images from the original note were not included. Certified Wound Care Nurse Note Situation: Asked to see Storm Olivares by nursing for Patient with red weepy rash on back. Appears simular to a burn. Unsure cause of rash. pt. placed on hypoallergic sheets. Rash appeared outside of tegaderm dressing around epidural. Background: eD-H notes reviewed for history, admitting diagnosis and active problem list. Discussedpatient with RN prior to assessment. Wound Assessment and Care Provided: Patient laying supine in bed. Purpose for visit explained and permission given for assessment. Patient reports that it feels like a sunburn. States that he noticed it several days ago, maybe Sunday. Patient sat up on the edge of the bed. The center of his back is intact without discoloration (presumably where the epidural was). There are very well demarcated edges with straight lines. The periwound of the epidural dressing, across the thoracic spine, with an erythematous rash, scattered partial thickness skin loss and dry brown tissue. No drainage noted. Discussed applying aquaphor, patient reports that they applied some cream and it didn't help. Opted to wait for dermatology's assessment. See photo Back Cruzito Score: 19 Last Pressure Ulcer Prevention assessment: Shift Pressure Injury Prevention Occiput: No Injury Thoracic Spine: other (see comment)(rash, weeping on left side) Sacral: No Injury Ischial - left: No Injury Ischial - right: No Injury Heel - left: No Injury Heel - right: No Injury Elbow - left: No Injury Elbow - right: No Injury Device Sites: O2 sat monitor, oxygen tubing, SCD's/venodynes, IV sites, bains Other Sites: epidural Nutritional Status Wt Readings from Last 1 Encounters: 06/09/19 97.9 kg (215 lb 13.3 oz) Body mass index is 31.86 kg/m??. Current bed: [facility] Assessment: painful rash to back with dry brown tissue that is around where the epidural dressing was. ? Some sort of burn from the operating room, recommend dermatology consult. Wound Care Recommendations: Dermatology consult Would recommend aquaphor to moisturize skin if patient and dermatology agree. Follow hospital standard for pressure ulcer prevention and skin care. Refer to adult/pediatric pressure ulcer prevention job aid in the clinical policy library. Wound care will follow weekly. Discussed plan with: /MICHELINE/PA: Regi Camargo RN:Ari Please contact Arpan Mora RN on pager [phone] or the wound care team at [phone] or pager [phone] with skin and wound care concerns or questions. * Plan of Care - Emilia Williamson RN - 06/09/2019 7:59 AM EST Problem: Patient Care Overview Goal: Plan of Care Review Outcome: Ongoing (Interventions Implemented as Appropriate) 06/08/19 2100 06/09/19 4428 Plan of Care Review Progress -- progress toward functional goals is gradual Coping/Psychosocial Plan Of Care Reviewed With patient -- OUTCOME EVALUATION NOTE: OUTCOME SUMMARY: Patient denied pain. Epidural infusing, dressing changed by 2300. Patient passing flatus but no BM.Patient taking small amounts ice chips without problems. Bains draining adequate urine. Patient slept in naps. Pulse ox 95% RA this am. Red rash on back, weeping on left side. PLAN MOVING FORWARD: Question starting PO fluids, ? Removing epidural today. Wound care consult for rash. INDIVIDUALIZED FALL PREVENTION INTERVENTIONS: Patient-specific fall risk factors per assessment: [current deficits]: weakness Assistance [level of assistance required for transfers and ambulation]: 1 assist with walker Supervision [direct monitoring required during toile ting and ALS]: Hands on Surveillance [continuous indirect monitoring]: Call light in reach, purposeful rounds, bed alarm Patient-specific fall prevention interventions for sensory deficits provided, if applicable: [X] Yes adjust lighting, glasses CG GOAL OUTCOME EVALUATION: * Plan of Care - Marv Solano RN - 06/08/2019 6:31 PM EST Problem: Skin Integrity Impairment, Risk/Actual (Adult) Intervention: Promote/Optimize Nutrition 06/04/19 1930 Hygiene Care Oral Care oral rinse provided;oral swabbing Intervention: Prevent/Manage Excess Moisture 06/07/19 1000 06/08/19 0800 Hygiene Care Perineal Care -- perianal area cleansed;catheter care provided Bathing/Skin Care linen changed;bath, partial;dressed/undressed -- Skin Interventions Skin Protection -- tubing/devices free from skin contact Intervention: Prevent/Minimize Sheer/Friction Injuries 06/08/19 0800 Positioning Positioning/Transfer Devices pillows;in use Skin Interventions Pressure Reduction Devices pressure-redistributing mattress utilized Pressure Reduction Techniques frequent weight shift encouraged Goal: Identify Related Risk Factors and Signs and Symptoms Related risk factors and signs and symptoms are identified upon initiation of Human Response Clinical Practice Guideline (CPG) Outcome: Ongoing (Interventions Implemented as Appropriate) 06/05/19 0503 Skin Integrity Impairment, Risk/Actual Skin Integrity Impairment, Risk/Actual: Related Risk Factors surgery/procedure OUTCOME EVALUATION NOTE: OUTCOME SUMMARY: Storm had a good day. Patient remains AAOx4. VSS. Afebrile. Pt denies nausea, chest pain, and shortness of breath. Pain well controlled with PCEA. Pt voiding adequate amounts of urine via bains. Ptpassing gas; pt had 0 BMs this shift. Suppository given x1 for aid in return of bowel function. Incisions remain CDI. Pt ambulated in halls. Will continue to monitor. See EDH for further assessments. PLAN MOVING FORWARD: Encourage independence. Encourage ambulation Monitor I+Os Monitor bowel function INDIVIDUALIZED FALL PREVENTION INTERVENTIONS: Patient-specific fall risk factors per assessment: [current deficits]: PCEA, IV, generalized weakness Assistance [level of assistance required for transfers and ambulation]: 1 assist w/ FWW Supervision [direct monitoring required during toileting and ADLs]: Arms reach Surveillance [continuous indirect monitoring]: Masimo, Call sagastume within reach, Hourly rounding. Patient-specific fall prevention interventions for sensory deficits provided, if applicable: [X] Yes CPG GOAL OUTCOME EVALUATION: Ongoing Goal: Skin Integrity/Wound Healing Patient will demonstrate the desired outcomes by discharge/transition of care. Outcome: Ongoing (Interventions Implemented as Appropriate) 06/05/19 0503 Skin Integrity Impairment, Risk/Actual (Adult) Skin Integrity/Wound Healing making progress toward outcome Problem: Patient Care Overview Goal: Plan of Care Review Outcome: Ongoing (Interventions Implemented as Appropriate) 06/08/19 0535 06/08/19 08 Plan of Care Review Progress no change -- Coping/Psychosocial Plan Of Care Reviewed With -- patient Goal: Individualization & Mutuality Outcome: Ongoing (Interventions Implemented as Appropriate) 06/04/19 1304 Mutuality/Individual Preferences What Anxieties, Fears or Concerns Do You Have About Your Health or Care? N/A. What Questions Do You Have About Your Health or Care? Do I need all these lines on me? What Information Would Help Us Give You More Personalized Care? Please keep my family informed withmy care. Goal: Fall Prevention-Safe Patient Handling Outcome: Ongoing (Interventions Implemented as Appropriate) 06/08/19 0806/08/19 1055 Restraint Interventions Safety Promotion/Fall Prevention activity supervised;fall prevention program maintained;nonskid shoes/slippers when out of bed;safety round/check completed -- Activity Activity Type -- ambulated in [place] Activity Assistance Provided -- assistance, stand-by Assistive Device Utilized -- front-wheel walker Positioning Body Position independent -- Daily Care Interventions Self-Care Promotion independence encouraged -- Stanton Fall Risk History of Falling 0 -- Secondary Diagnosis 15 -- Ambulatory Aids 15 -- Intravenous Therapy/Heparin/Saline Lock 20 -- Gait/Transferring 10 -- Mental Status 0 -- Score 60 -- OTHER Stanton Fall Risk High -- Goal: Infection Control Outcome: Ongoing (Interventions Implemented as Appropriate) 06/08/19 08 Safety Interventions Isolation Precautions standard precautions maintained Infection Prevention environmental surveillance performed;rest/sleep promoted Coping Strategies Supportive Measures active listening utilized;self-care encouraged Goal: Discharge Needs Assessment Outcome: Ongoing (Interventions Implemented as Appropriate) 06/05/19 0503 06/07/19 0248 Discharge Needs Assessment Concerns To Be Addressed no discharge needs identified -- Readmission Within The Last 30 Days no previous admission in last 30 days -- Equipment Needed After Discharge none -- Current Discharge Risk -- chronically ill Living Environment Transportation Available -- family or friend will provide Goal: Interdisciplinary Rounds/Family Conf Outcome: Ongoing (Interventions Implemented as Appropriate) 06/05/19 0503 Interdisciplinary Rounds/Family Conf Participants patient;physician;nursing * Plan of Care - Gissel Jaquez RN - 06/08/2019 5:40 AM EST Problem: Patient Care Overview Goal: Plan of Care Review Outcome: Ongoing (Interventions Implemented as Appropriate) 06/07/19 1931 06/08/19 0535 Plan of Care Review Progress -- no change Coping/Psychosocial Plan Of Care Reviewed With patient -- OUTCOME EVALUATION NOTE: OUTCOME SUMMARY: Uneventful evening. Intermittently confused to place and time when first waking, but quickly realizes where he is and what time it is. Abdomen remains distended, faint bowel sounds, positive flatus. Abdominal incision is well- approximated with mercy, open to air, some redness around the belly button area. New epidural bag started and is due to on 06/09/2019 @ 0230. Pain well-controlled, IV Tylenol reordered. Bains with adequate amounts of yellow urine; however, there is no clear indication as to why it needs to remain in place - having an epidural in place and/or monitoring urine output after IV Lasix is not an indication. Questions and concerns addressed, with continue to monitor. PLAN MOVING FORWARD: Awaiting return of bowel function. Encourage mobility. D/C bains and epidural. Continue with discharge planning. INDIVIDUALIZED FALL PREVENTION INTERVENTIONS: Patient-specific fall risk factors per assessment: [current deficits]: Recent surgery, tethering lines, narcotics for pain management, glasses on, intermittent confusion and impulsiveness, generalized weakness, unfamiliar environment. Assistance [level of assistance required for transfers and ambulation]: 1-assist with walker. Supervision [direct monitoring required during toileting and ADLs]: Hand's on due to equipment. Surveillance [continuous indirect monitoring]: Environmental monitoring, purposeful rounding, may or may not ring call sagastume. Patient-specific fall prevention interventions for sensory deficits provided, if applicable: Light adjusted for tasks and safety, non-skid slippers on, glasses on, bed alarm on, call sagastume within reach. CPG GOAL OUTCOME EVALUATION: * Plan of Care - Yary Felipe RN - 06/07/2019 6:06 PM EST Problem: Patient Care Overview Goal: Plan of Care Review Outcome: Ongoing (Interventions Implemented as Appropriate) 06/07/19 1750 Plan of Care Review Progress improving Coping/Psychosocial Plan Of Care Reviewed With patient OUTCOME EVALUATION NOTE: OUTCOME SUMMARY: Terry had a good day. AAOx4. VSS. Afebrile. Pt denies nausea. Pain well controlled with Epidural, pt not using/needing PCEA. Bains in place, voiding adequate amounts; discussed with team about removal. IV lasix given. Pt passing gas; pt had no BMs this shift. Incisions CDI. Pt ambulated in halls. Pt OOB, up to chair most of shift. Pt c/o discomfort on back; on assessment, Blanchable red, irritaed, diffuse rash found. APS and MD notified. WC consult placed. Will continue to monitor. PLAN MOVING FORWARD: Encourage independence. Encourage ambulation. Encourage IS use. Maintain pain control. Continue to monitor bowel function and fluid status. Discharge planning. INDIVIDUALIZED FALL PREVENTION INTERVENTIONS: Patient-specific fall risk factors per assessment: [current deficits]: Generalized weakness, epidural, lines/pole, bains, vision aid Assistance [level of assistance required for transfers and ambulation]: 1-assist w/ FWW Supervision [direct monitoring required during toileting and ADLs]: Within arms reach Surveillance [continuous indirect monitoring]: Fields, purposeful rounding, call sagastume in reach, bed alarm Patient-specific fall prevention interventions for sensory deficits provided, if applicable: [X] Yes, environmental modifications, lights adjusted to task, non- skid socks, glasses on CPG GOAL OUTCOME EVALUATION: Ongoing * Plan of Care - Kirsten Hermosillo RN - 06/07/2019 2:49 AM EST Problem: Patient Care Overview Goal: Plan of Care Review Outcome: Ongoing (Interventions Implemented as Appropriate) 06/05/19 0503 06/06/191999 Plan of Care Review Progress progress toward functional goals as expected -- Coping/Psychosocial Plan Of Care Reviewed With -- patient OUTCOME EVALUATION NOTE: OUTCOME SUMMARY: Terry had a good night. A/OX4 all shift, despite the short bought of confusion reported during day shift. VSS, afebrile on 3L overnight. Pain well controlled w/ PCEA and scheduled Tylenol. Epidural bag changed this shift. Bains remains in place. AUOP. No BM this shift; passing flatus. MD unsuccessful in NGT placement attempt. Pt remains NPO. Midline incision CDI w/ mercy; well approximated. Will continue to monitor. PLAN MOVING FORWARD: Waiting return of bowel function. Manage pain adequately. Encourage IS and ambulation. Remove foleytoday? INDIVIDUALIZED FALL PREVENTION INTERVENTIONS: Patient-specific fall risk factors per assessment: [current deficits]: Lines, drains, pain w/ movement. Assistance [level of assistance required for transfers and ambulation]: 1A w/ FWW Supervision [direct monitoring required during toileting and ADLs]: Arms reach Surveillance [continuous indirect monitoring]: Purposeful hourly rounding, call sagastume in reach, belongings in reach. Patient-specific fall prevention interventions for sensory deficits provided, if applicable: [X] Yes glasses on CPG GOAL OUTCOME EVALUATION: Ongoing * Plan of Care - Ana Martínez RN - 06/06/2019 4:15 PM EST Problem: Patient Care Overview Goal: Plan of Care Review Outcome: Ongoing (Interventions Implemented as Appropriate) 06/05/19 0503 06/06/19 0745 Plan of Care Review Progress progress toward functional goals as expected -- Coping/Psychosocial Plan Of Care Reviewed With -- patient OUTCOME EVALUATION NOTE: OUTCOME SUMMARY: Storm had a fair day. VSS or 2-3 L NC. He is currently NSR after converting from AFIB at 9:20 am.Around noon had a bout of acute confusion. Was oriented only to self, a change from the morning assessment. He pulled out his NGT and an IV. Took several minutes and reorientation several times for him to accept that he was in the hospital. The provider was notified of the acute change and came up to assess Storm. A CBC, BMP, ABD xray was ordered. NIH stroke assessment was conducted with a score of 1, and had no other deficits other than the acute confusion. Continues with R upper arm IV, epidural [employer], bains catheter. PLAN MOVING FORWARD: Neuro assessments as needed, reorientation as needed, monitoring as ordered, I/O as ordered INDIVIDUALIZED FALL PREVENTION INTERVENTIONS: Patient-specific fall risk factors per assessment: [current deficits]: Generalized weakness, confusion, IV tubing, Bains, monitoring lines Assistance [level of assistance required for transfers and ambulation]: 1-2 assist with FWW Supervision [direct monitoring required during toileting and ADLs]: Hands on Surveillance [continuous indirect monitoring]: Bed alarm, bed near unit station, Telemetry, Pulse Ox, purposeful rounding Patient-specific fall prevention interventions for sensory deficits provided, if applicable: yes, glasses on, lighting adjusted CPG GOAL OUTCOME EVALUATION: Goal: Individualization & Mutuality Outcome: Ongoing (Interventions Implemented as Appropriate) 06/04/19 1304 Mutuality/Individual Preferences What Anxieties, Fears or Concerns Do You Have About Your Health or Care? N/A. What Questions Do You Have About Your Health or Care? Do I need all these lines on me? What Information Would Help Us Give You More Personalized Care? Please keep my family informed withmy care. Goal: Fall Prevention-Safe Patient Handling Outcome: Ongoing (Interventions Implemented as Appropriate) 06/05/19199906/06/19 0745 06/06/19 0800 Restraint Interventions Safety Promotion/Fall Prevention -- -- -- Activity Activity Type -- -- ambulated in [place] Activity Assistance Provided -- -- assistance, 1 person Assistive Device Utilized -- -- front-wheel walker Positioning Body Position -- -- up in chair Daily Care Interventions Self-Care Promotion independence encouraged -- -- Stanton Fall Risk History of Falling -- 0 -- Secondary Diagnosis -- 15 -- Ambulatory Aids -- 15 -- Intravenous Therapy/Heparin/Saline Lock -- 20 -- Gait/Transferring -- 10 -- Mental Status -- 0 -- Score -- 60 -- OTHER Stanton Fall Risk -- High -- 06/06/19 1000 Restraint Interventions Safety Promotion/Fall Prevention activity supervised Activity Activity Type -- Activity Assistance Provided -- Assistive Device Utilized -- Positioning Body Position -- Daily Care Interventions Self-Care Promotion -- Stanton Fall Risk History of Falling -- Secondary Diagnosis -- Ambulatory Aids -- Intravenous Therapy/Heparin/Saline Lock -- Gait/Transferring -- Mental Status -- Score -- OTHER Stanton Fall Risk -- Goal: Infection Control Outcome: Ongoing (Interventions Implemented as Appropriate) 06/06/19 0745 06/06/19 1000 Safety Interventions Isolation Precautions -- standard precautions maintained Infection Prevention -- rest/sleep promoted Coping Strategies Supportive Measures active listening utilized;decision-making supported;self- care encouraged;relaxation techniques promoted;problem solving facilitated -- Goal: Discharge Needs Assessment Outcome: Ongoing (Interventions Implemented as Appropriate) 06/05/19 0503 Discharge Needs Assessment Concerns To Be Addressed no discharge needs identified Readmission Within The Last 30 Days no previous admission in last 30 days Equipment Needed After Discharge none Goal: Interdisciplinary Rounds/Family Conf Outcome: Ongoing (Interventions Implemented as Appropriate) 06/05/19 0503 Interdisciplinary Rounds/Family Conf Participants patient;physician;nursing * Plan of Care - Gissel Bland OTA - 06/06/2019 3:25 PM EST Attempted to see pt today for OT treatment. Patient unavailable 2/2 being out of room for a procedure. Will follow up as available / appropriate for Occupational Therapy Services. Pager [phone] ISRA Kline/Joseph Occupational Therapy Rehabilitation Department * Plan of Care - Ramona Quiros RN - 06/06/2019 3:55 AM EST OUTCOME EVALUATION NOTE: OUTCOME SUMMARY: Storm slept intermittently between care. @ start of shift NSR w/ LBBB and freq. PVCs. @0308 Pt converted to A-fib w/ RVR, EKG obtained, mag + 5mg Metop given, HR now 100s-120s. Pt asx. BPs stable, MAPs >65. RRRR, SpO2 >90% on 2L NC. Pt asx, denies CP, pressure, PABON, nausea, SOB, numbness/tingling. A+Ox4, NGT @ 70 cm, re-taped overnight when pt slightly pulled out. Output thick/dark green, r eq. Freq. Flushing to remain patent. Reminding patient to use ice chips sparingly. Pain managed w/ PCEA. Pulses Palpable, checked Q4 per order. Bains w/ AUOP. Midline CDI. PLAN MOVING FORWARD: Mon HR+Rhythm, Promote OOB as tolerated. Mon skin +nose for breakdown. Mon midline incision. Removefoley. INDIVIDUALIZED FALL PREVENTION INTERVENTIONS: Patient-specific fall risk factors per assessment: [current deficits]: Narcotics, mobility aid, lines/tubes Assistance [level of assistance required for transfers and ambulation]: 2x Supervision [direct monitoring required during toileting and ADLs]: Hands on Surveillance [continuous indirect monitoring]: Masimo, purposeful rounding, call sagastume in reach Patient-specific fall prevention interventions for sensory deficits provided, if applicable: Yes, environmental modifications, lights adjusted to task, non-skid socks CPG GOAL OUTCOME EVALUATION: * Plan of Care - Misha Murray OT - 06/05/2019 10:40 AM EST Occupational Therapy Evaluation Patient profile: Storm Olivares is a 74 y.o. 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 AORTA W OR W/O PATCH GRAFT (WRVU 27.72) (N/A) History reviewed. No pertinent past medical history. Past Surgical History: Procedure Laterality Date ??? 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 MAIN OR ??? PRO REANEURYSM/GRFT INS, ILIAC Bilateral 06/03/2019 @REPAIR ILIAC ARTERY ANEURYSM (CHANCE, HYPOGASTRIC OR EIA) (WRVU 26.4) performed by Helio Duke MD at [facility] MAIN OR ??? PRO THROMBOENDARTECTMY ABD AORTA N/A 06/03/2019 @ENDARTERECTOMY, ABD. AORTA W OR W/O PATCH GRAFT (WRVU 27.72) performed by Helio Duke MD at [facility] MAIN OR ??? PRO THROMBOENDARTECTMY ILIAC 06/03/2019 @ENDARTERECTOMY, ILIAC W OR W/O PATCH GRAFT (WRVU 24.61) performed by Helio Duke MD at [facility] MAIN OR Social History: Patient lives alone Home Setup: multi level home w/ 2 STEVE, 1 rail, able to live on 1 level, FOS w/ 1 rail up to bedroom, walk in shower w/ seat, no HH shower head or grab bar. DME: None Baseline ADL/Mobility: Independent Precautions/Special Considerations: 2.5LO2 per NC, critical lab drawn at time of eval, DAVIDE bains, log roll, epidural Subjective: Yeah, i'd like to go home. Objective: Seen today for OT evaluation. Cognitive Status/Behavior: ?? Behavior / Mood: alert and cooperative ?? Alert and oriented to: person, place, time and situation ?? Follows commands: multi step ?? Attention: WFL ?? Safety awareness: WFL Vision & Perception: ?? corrective lenses for distance Communication: WFL Range of motion, strength, coordination: Hand dominance: right Bilateral UEs are within functional limits LE limitations: None Sensation: Intact Activities of Daily Living: Self-feeding: NT Grooming: independent in sitting Dressing: NT, anticipate pt may benefit from AE if he is unable to figure 4. Bathing: NT, pt may benefit from a LH bath sponge Toileting: Transfer: NT, anticipate SBA Hygiene: NT, anticipate independence Functional Mobility: Supine to sit: Log roll, modA for trunk Sit to stand: CGA x 2 w/ FWW Ambulation: CGA x 150ft w/ FWW Stand to sit: CGA w/ FWW Sit to supine: NT Balance: Sitting balance: good Standing balance: good Vitals: At Rest With Activity SpO2 93% Heart Rate Blood Pressure 160/66 supine reclined 152/70 sitting 163/66 after activity Pain: 0/10 Skin: Intact Education: family and patient have been educated on Role of occupational therapy/rehabilitation, Transfers, ADL, Safety and Precautions/Protocol and demonstrate and verbalizes understanding. Patient status, treatment, and mobility recommendations discussed with nursing. Assessment: Pt has been seen for occupational therapy evaluation. Storm Olivares presents withthe following performance skill deficits and client factors: increased pain, decreased activity tolerance, decreased flexibility/ROM, decreased strength, hemodynamic instability, precautions/bracing and compromised mobility status. These performance deficits have led to activity limitations and participation restrictions in the following areas of occupation: dressing, bathing, grooming, toileting, transfers/mobility, home management, driving and community mobility. Pt is very pleasant and verbal izes understanding of OT role, was able to ambulate a household distance, may benefit from AE for LB dressing however pending pain, I anticipate pt may be able to figure 4 to don LB clothing. Pt would benefit from further inpatient OT interventions to address performance deficits and maximize participation and independence with occupations of daily living. Equipment needs at discharge: Anticipated Discharge Disposition: (P) home with home health Other Recommendations: ?? Utilize upright chair position using bed features or transfer to recliner chair as appropriate with Ax1 w/ FWW, ambulate as tolerated ?? Encourage participation in ADL's by providing set up A on tray table and physical assist only asneeded. Other Recommendations: No other consults recommended at this time Goals: To be achieved by 06/19/2019. 1.) Pt will complete LB dressing w/ supervision using AE. 2.) Pt will complete simple kitchen task w/ SBA. 3.) Pt will complete 2 grooming tasks standing at sink w/ SBA. Plan: OT: Therapy Frequency: (P) 1-3 more visits Planned OT interventions: Role of occupational therapy/rehabilitation, Adaptive equipment training,ADL, Safety, Precautions/Protocol and Activity pacing/Energy conservation. Total Evaluation Minutes, Occupational Therapy: (P) 42(Mod ) 2017 OT Evaluation Code Rationale: ?? Diagnosis & Pertinent Co-Morbidities affecting Plan of Care: see PMHx ?? Occupational Profile & Client History: Brief Expanded Extensive x ?? Assessment of Occupational Performance: 1-3 performance deficits 3-5 performance deficits 5 + performance deficits x ?? Clinical Decision Making: Low Moderate High x Clinical decision making of high complexity using standardized patient assessment instrument and measurable assessment of functional outcome. Pager: [phone] Misha Murray OT 06/05/2019 Occupational Therapy Rehabilitation Department * Plan of Care - Silvana Rodriguez PT - 06/05/2019 10:30 AM EST Physical Therapy Evaluation Patient profile: Storm Olivares is a 74 y.o. 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 AORTA W OR W/O PATCH GRAFT (WRVU 27.72) (N/A) Patient with the following active problems: History reviewed. No pertinent past medical history. Past Surgical History: Procedure Laterality Date ??? 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 MAIN OR ??? PRO REANEURYSM/GRFT INS, ILIAC Bilateral 06/03/2019 @REPAIR ILIAC ARTERY ANEURYSM (CHANCE, HYPOGASTRIC OR EIA) (WRVU 26.4) performed by Helio Duke MD at [facility] MAIN OR ??? PRO THROMBOENDARTECTMY ABD AORTA N/A 06/03/2019 @ENDARTERECTOMY, ABD. AORTA W OR W/O PATCH GRAFT (WRVU 27.72) performed by Helio Duke MD at [facility] MAIN OR ??? PRO THROMBOENDARTECTMY ILIAC 06/03/2019 @ENDARTERECTOMY, ILIAC W OR W/O PATCH GRAFT (WRVU 24.61) performed by Helio Duke MD at [facility] MAIN OR Active Non-Hospital Problems Diagnosis ??? Pre-operative exam ??? Iliac artery aneurysm [...] ??? Malignant melanoma of skin ??? Hypertension Social History: Patient lives alone Home Setup: multi level home w/ 2 STEVE, 1 rail, able to live on 1 level, FOS w/ 1 rail up to bedroom, walk in shower w/ seat, no HH shower head or grab bar. DME: None Baseline ADL/Mobility: Independent Precautions/Special Considerations: 02,bains,NGT,midline incision,log roll, epidural Mobility and Positioning Recommendations: ?? Pt. to utilize RW and CTG x1-2 for ambulation and transfers with nursing. ?? Please encourage up to chair for meal times as able. ?? Pt encouraged to ambulate frequently with staff, getting into the bathroom for toileting and walking out in the [place] >/= 3 times daily as able.Spirometry hourly Subjective: ???It really hurts when I try to get up OOB?? Objective: Pt seen for evaluation today. Pain-6/10 at rest, 10/10 with mobility (abdomen). Vital Signs- pre-152/70, post-163/60, HR 126 post activity,o2 sat 93% on 3L Mental Status: alert, oriented to person, place, and time Vision: Wears glasses Skin: midline incision Musculoskeletal: ROM: decr at trunk d/t pain Strength: able to move all ext's against gravity, deconditioned from baseline Sensation: reports intact Bed Mobility: Supine to Sit: HOB elevated, moda to log roll Sit to Supine: NT Transfers: Sit to Stand: CTG x2 with RW Stand to Sit: CTG x2 with RW Bed to Chair: CTG x2 with RW Gait: Distance: 150 feet Device used: RW Level of assist: CTG x2 Gait mechanics: slow pace, cues for body space within RW Stairs: NT Balance: Sitting Static: good Sitting Dynamic: good Standing Static: fair with RW Standing Dynamic / Gait: Fair with RW Therex: spirometry Education: patient has been educated on Bed mobility, Transfers, Assistive device/technique, Positioning, Precautions/protocol, Equipment use, Gait , Activity pacing/Energy conservation, Role of therapy, Balance and Discharge planning and needs reinforcement. Patient status, treatment, and mobility recommendations discussed with nursing. Assessment: Storm Olivares was seen today for physical therapy evaluation. Upon evaluation, ptdemonstrates decr strength,endurance,balance and incr pain impacting upon fx'l mobility.Pt requiresuse of RW and assist x2 for mobility.Normally pt is IND without device and active.Pt pleasant and co operative. To benefit form ongoing therapy, anticipate DC to home when medically ready.. The pt would benefit from skilled therapy services while in the hospital to maximize functional abilities. Discharge Recommendations: Based on the current findings, Anticipated Discharge Disposition: home with assist when medically ready for hospital discharge. Consult Recommendations: No other consults recommended at this time. Equipment needs: TBD Goals: To be achieved by 06/13/19: 1. Pt. to demonstrate knowledge of safety limitations and precautions and will appropriately request assistance for functional activities and to mobilize. 2. Pt. to demonstrate understanding of appropriate spirometry exercises. 3. Pt. to perform bed mobility independently. 4. Pt. to perform all transfers independently using LRD. 5. Pt. to ambulate 300 feet independently using a LRD. 6. Pt. to ambulate up/down 12 step/stairs using one rail independently. 7. Pt will tolerate progression towards upright with stable vital signs. Plan: Therapy Frequency: 2-4 times/wk for therapy including balance training, bed mobility training, gait training, patient/family education, range of motion, stair training, strengthening and transfer training. Patient/family understand and agree with plan as stated above. 2017 PT Evaluation Code Rationale: ?? Diagnosis & Pertinent Co-Morbidities, personal factors, and present illness affecting Plan of Care: (see above); Additional personal factors or co- morbidities that impact plan: ?? Total # of Factors: 0 1-2 3+ x ?? Examination of body system impairments, functional limitations and behaviors, and/or participation restrictions. Addressing 1-2 elements Addressing 3 + elements Addressing 4 + elements x ?? Clinical presentation: See assessment above. Stable/Uncomplicated Evolving/Fluctuating Symptoms Unstable/Unpredictable x ?? Clinical decision making of moderate complexity based on pt's functional performance as outlinedin this evaluation. Time IN / OUT: 0222-0297 Total Evaluation Minutes, Physical Therapy: 30(Mod complexity eval) Silvana Rodriguez, PT Pager: [phone] Physical Therapy Inpatient Rehabilitation Department * Plan of Care - Katina Shaffer RN - 06/05/2019 5:12 AM EST Problem: Skin Integrity Impairment, Risk/Actual (Adult) Goal: Identify Related Risk Factors and Signs and Symptoms Related risk factors and signs and symptoms are identified upon initiation of Human Response Clinical Practice Guideline (CPG) Outcome: Ongoing (Interventions Implemented as Appropriate) 06/05/19 0503 Skin Integrity Impairment, Risk/Actual Skin Integrity Impairment, Risk/Actual: Related Risk Factors surgery/procedure Goal: Skin Integrity/Wound Healing Patient will demonstrate the desired outcomes by discharge/transition of care. Outcome: Ongoing (Interventions Implemented as Appropriate) 06/05/19 0503 Skin Integrity Impairment, Risk/Actual (Adult) Skin Integrity/Wound Healing making progress toward outcome Problem: Patient Care Overview Goal: Plan of Care Review Outcome: Ongoing (Interventions Implemented as Appropriate) 06/04/19199906/05/19 050 Plan of Care Review Progress -- progress toward functional goals as expected Coping/Psychosocial Plan Of Care Reviewed With patient -- OUTCOME EVALUATION NOTE: OUTCOME SUMMARY: Storm Olivares had a good night, appeared to be sleeping between care. No acute events overnight. No signs or symptoms of distress, denies SOB, numbness or tingling. A/Ox4, VSS, Afebrile. Remains NPO overnight. Swabs and oral care encouraged. Pain managed adequately with Epidural. Pulses palpable. Remains on 3L NC, for desaturations overnight. Voiding adequate amounts, bains in place. No flatus, no BM overnight. Midline dressing removed by MD's this morning. PLAN MOVING FORWARD: Continue to monitor as ordered Manage pain adequately Encourage ambulation as tolerated Promote self care and independence Encourage IS use Discharge planning INDIVIDUALIZED FALL PREVENTION INTERVENTIONS: Patient-specific fall risk factors per assessment: [current deficits]: Narcotics, Epidural, Needs assistance getting out of bed or chair, Pain with movement/ambulation Assistance [level of assistance required for transfers and ambulation]: Walker, Cane, wheel chair, IV pole, independent, non-skid shoes/slippers, 1 or 2 person assist Supervision [direct monitoring required during toileting and ADLs]: Hands on Surveillance [continuous indirect monitoring]: Purposeful rounding, call sagastume in reach Patient-specific fall prevention interventions for sensory deficits provided, if applicable: Yes: Glasses, Light adjusted for task/safety CPG GOAL OUTCOME EVALUATION: ongoing Goal: Individualization & Mutuality Outcome: Ongoing (Interventions Implemented as Appropriate) 06/04/19 1304 Mutuality/Individual Preferences What Anxieties, Fears or Concerns Do You Have About Your Health or Care? N/A. What Questions Do You Have About Your Health or Care? Do I need all these lines on me? What Information Would Help Us Give You More Personalized Care? Please keep my family informed withmy care. Goal: Fall Prevention-Safe Patient Handling Outcome: Ongoing (Interventions Implemented as Appropriate) 06/05/19 0503 Restraint Interventions Safety Promotion/Fall Prevention safety round/check completed Activity Activity Type activity adjusted per tolerance Activity Assistance Provided assistance, 2 people Assistive Device Utilized none Positioning Body Position supine, head elevated Daily Care Interventions Self-Care Promotion independence encouraged Stanton Fall Risk History of Falling 0 Secondary Diagnosis 15 Ambulatory Aids 15 Intravenous Therapy/Heparin/Saline Lock 20 Gait/Transferring 10 Mental Status 0 Score 60 OTHER Stanton Fall Risk High Goal: Infection Control Outcome: Ongoing (Interventions Implemented as Appropriate) 06/05/19 050 Safety Interventions Isolation Precautions standard precautions maintained Infection Prevention rest/sleep promoted;single patient room provided Coping Strategies Supportive Measures active listening utilized;positive reinforcement provided;self-care encouraged;self-reflection promoted;self-responsibility promoted;verbalization of feelings encouraged Goal: Discharge Needs Assessment Outcome: Ongoing (Interventions Implemented as Appropriate) 06/05/19 050 Discharge Needs Assessment Concerns To Be Addressed no discharge needs identified Readmission Within The Last 30 Days no previous admission in last 30 days Equipment Needed After Discharge none Goal: Interdisciplinary Rounds/Family Conf Outcome: Ongoing (Interventions Implemented as Appropriate) 06/05/19 050 Interdisciplinary Rounds/Family Conf Participants patient;physician;nursing * Initial Assessments - Meme Cornelius RN - 06/04/2019 5:07 PM EST Office of Care Management Initial Assessment Meme Cornelius RN reviewed record and discussed patient with Care Team. Source of Information: Vascualr Team, bedside nurse, chart review, interviewing patient. Introduced self/reviewed role; services accepted. By Patient Reason for Hospitalization: Reason for Admission as Stated by Patient: Abdominal vascular surgery. <principal problem not specified> note: repair of Iliac Artery and AAA repair , enterectomy History reviewed. No pertinent past medical history. Hospitalizations Within the Past 30 Days: No [facility] [place] [place] admits in last 30 days. Anticipated Length Of Stay (If known): Expected Length of Hospitalization: 5 Vs TBD Current Decision-Making Capacity: Patient is A&Ox4 Has current decision making capacity. Advance Care Planning: Full Code No AD in EPIC. If AD's have not been completed SON would be surrogate decision maker per [place] surrogate decision making law. Any patient receiving care at [facility] [place] [place] must abide by [place] law. The hierarchy for surrogate decision making is: (a) Patient???s spouse, or civil union partner or common law spouse unless there is a divorce proceeding, separation agreement, or restraining order limiting that person???s relationship with the patient. (b) Any adult son or daughter of the patient. (c) Either parent of the patient. (d) Any adult brother or sister of the patient. (e) Any adult grandchild of the patient. (f) Any grandparent of the patient. (g) Any adult aunt, uncle, niece, or nephew of the patient. (h) A close friend of the patient. (i) The agent with financial power of assistant city attorney or a conservator appointed in accordance with RSA 464-A. (j) The guardian of the patient???s estate. Current Coping/Education/Information Needs: Current coping questions and concerns have been addressed. Current Functional Ability: Has been on Bed rest;OT/PT consults ordered Functional Status Prior to Admission: Pt active adult cared for own ADls Substance Use/Abuse: Social History Tobacco Use ??? Smoking status: Former Smoker Packs/day: 1.00 Years: 50.00 Pack years: 50.00 Types: Cigarettes Last attempt to quit: 07/30/2015 Years since quittin.8 ??? Smokeless tobacco: Never Used Substance Use Topics ??? Alcohol use: Yes Alcohol/week: 14.0 standard drinks Types: 14 Glasses of wine per week ??? Drug use: Never Home Environment: Lives in 2 story home with 3 STEVE , Lives alone in January of this year [address] [facility] [id number] Social & Family Supports/Community Resources: Son Extended Emergency Contact Information Primary Emergency Contact: zabrina olivares Address: [address] [place] [address] [facility] Mobile Relation: Other Health/Prescription Coverage: Primary Insurance: MEDICARE Secondary Insurance: [employer]UE [employer] [place] Prescription Coverage: Yes Preferred Pharmacy: [id number] - [place], [place] - [facility] [address] [facility] [address] [facility] [address] Other: none Primary Care Provider: Tr Hendrix DO [phone] Patient/Caregiver Goals of Treatment: Is happy with care Potential Needs for Transition of Care: Rehab/SNF: None anticipated Home Health: None anticipated ( If needed [place] [facility] is preferred) DME: None anticipated Dialysis: None anticipated Community Resources: None anticipated Transportation: Son Anticipated Barriers to Discharge/Special Considerations: none vs anticipated barriers to arise as hospitalization continues. Assessment: Patient with no apparent RNCM/SW needs at this time. No housing, transportation, insurance, resources concerns identified at this time. Supports in place to achieve a safe post-hospital transition. No identified barriers to accessing necessary care and/or follow-up after discharge. Plan: A member of the Care Management team will continue to monitor progress, follow for continuityof care and assist with transition of care planning. Meme oCrnelius RN CM Director Health Pager # [phone] * Plan of Care - Gissel Jaquez RN - 06/04/2019 1:29 PM EST Problem: Patient Care Overview Goal: Plan of Care Review Outcome: Ongoing (Interventions Implemented as Appropriate) 06/04/19 0849 Coping/Psychosocial Plan Of Care Reviewed With patient OUTCOME EVALUATION NOTE: OUTCOME SUMMARY: Epidural bag changed this morning. Scheduled IV Tylenol reordered. Despite the epidural and Tylenol, Terry continues to experience sharp abdominal pain with any slight body movement. Objectively, I do feel that his abdominal pain could be better controlled than it currently is. I spoke with the vascular surgery service about this. Terry has refused to even sit at edge of bed due to his abdominal pain. The trapeze was installed for him this morning; this has helped him significantly to be able to move around in bed. He has good upper arm strength. Aspirin suppository ordered and given. PT/OT orders placed. Continuous IV fluids decreased to 100mL/hr. NC Oxygen has been decreased to 1L. CBC ordered to be drawn twice daily along with Hemogram and BMP. Son, Zabrina, supportive at bedside this afternoon. Questions and concerns addressed. Bed alarm on. Will continue to monitor. 1530: Sitting at edge of bed per patient request. Reports some dizziness, BP 109/80. Pain has improved slightly. 175: Labs resulted - BUN 34, Creatinine 2.00. K+ 5.0. STAT EKG obtained, now with wider QRS complex. NS bolus 1,000mL ordered and given. Insulin 10 units in Dextrose 10% 500mL ordered and given. PLAN MOVING FORWARD: Better pain control. Encourage mobility. Twice daily labs. INDIVIDUALIZED FALL PREVENTION INTERVENTIONS: Patient-specific fall risk factors per assessment: [current deficits]: Recent surgery, tethering lines and drains, narcotics for pain management, forgetful, glasses on, impaired mobility, unfamiliar environment. Assistance [level of assistance required for transfers and ambulation]: 2-assist. Supervision [direct monitoring required during toileting and ADLs]: Hand's on. Surveillance [continuous indirect monitoring]: Environmental monitoring, purposeful rounding, ringscall sagastume appropriately. Patient-specific fall prevention interventions for sensory deficits provided, if applicable: Light adjusted for tasks and safety, non-skid slippers on when out of bed, call sagastume within reach, bed alarm on. CPG GOAL OUTCOME EVALUATION: * Brief Op Note - Bety Wright MD - 06/03/2019 4:06 PM EST Brief Operative Note Patient Name: Storm Olivares : [id number] MR#: [id number] Case Date: 06/03/2019 Surgeon: Surgeon(s) and Role: * Helio Duke MD - Primary * Bety Wright MD - Fellow Preoperative diagnosis: AAA Postoperative diagnosis: AAA Procedure(s) (LRB): @REPAIR ILIAC ARTERY ANEURYSM (CHANCE, HYPOGASTRIC OR EIA) (WRVU 26.4) (Bilateral) @REPAIR AORTIC ANEURYSM INVOLVING RENAL OR MESENTERIC VESSELS (WRVU 35.35) (N/A) @ENDARTERECTOMY, ILIAC W OR W/O PATCH GRAFT (WRVU 24.61) @ENDARTERECTOMY, ABD. AORTA W OR W/O PATCH GRAFT (WRVU 27.72) (N/A) Anesthesia: General Findings: bilateral CHANCE aneurysm, and hypogastric aneurysm. End to end proximal anastomosis, right end to end with EIA, left end to end with iliac bifurcation (Dacron 18x9- rifampin soaked). Small transverse colon serosal tear, imbricated with 3-0 silk suture. Palpable bilateral DP Complications: none immediate Estimated Blood Loss: 2733 mL Specimens removed during surgery: None Fluids: Intraprocedure Crystalloid Total Anesthesia Output Urine Output 480 mL Blood Loss 2733 mL Anesthesia Blood Cell Saver Volume 1475 mL Lactated Ringers Volume (mL) 4000 mL Sodium Chloride 0.9% Volume (mL) 2000 mL PRBCs: none (See Anesthesia Record/Report for Other Blood Products) Urine Output: 480 mL Drains: none Disposition: awakened from anesthesia, extubated and taken to the recovery room in a stable condition, having suffered no apparent untoward event. Condition: doing well without problems (Please see the Surgical Encounter Summary for any Implant and Specimen details pertinent to this patient.) Infection Bundle used? ancef * Op Note - Helio Duke MD - 06/03/2019 8:30 AM EST [facility] [place] [place] Operative Note Patient Name: Storm Olivares : [id number] MR#: [id number] Case Date: 06/03/2019 Surgeon: Surgeon(s) and Role: * Helio Duke MD - Primary * Bety Wright MD - Fellow Preoperative diagnosis: AAA Postoperative diagnosis: AAA Procedure: Open transperitoneal AAA repair Repair of bilateral common iliac artery aneurysms Ligation of right hypogastric artery Bilateral iliac artery endarterectomy Aortic endarterectomy FINDINGS: bilateral CHANCE aneurysm, and left hypogastric aneurysm. End to end proximal anastomosis, right end to end with EIA, left end to end with iliac bifurcation (Dacron 18x9- rifampin soaked). At the end ofthe case, noted a small area of transverse colon serosal abrasion from where the retractors were, imbricated this preemptively with 3-0 silk suture. Palpable bilateral DP Procedure(s) (LRB): @REPAIR ILIAC ARTERY ANEURYSM (CHANCE, HYPOGASTRIC OR EIA) (WRVU 26.4) (Bilateral) @REPAIR AORTIC ANEURYSM INVOLVING RENAL OR MESENTERIC VESSELS (WRVU 35.35) (N/A) @ENDARTERECTOMY, ILIAC W OR W/O PATCH GRAFT (WRVU 24.61) @ENDARTERECTOMY, ABD. AORTA W OR W/O PATCH GRAFT (WRVU 27.72) (N/A) Anesthesia: General Estimated Blood Loss: 2733 mL Specimens removed during surgery: None Drains: * No LDAs found * Surgical Closure: Primary Closure - skin incision is completely closed without any wires, monique, drains or other devices Disposition: awakened from anesthesia, extubated and taken to the recovery room in a stable condition, having suffered no apparent untoward event. Condition: doing well without problems (Please see the Surgical Encounter Summary for any Implant and Specimen details pertinent to this patient.) HPI/Surgical Indications: 74M with an asymptomatic pararenal AAA. Procedure Description: After informed consent was obtained the patient was brought back to the operating room and positioned supine on the OR table. General anesthesia was induced and the patient wasintubated with an ETT. Additional support lines (bains, central line, arterial line, PIVs) were placed. Preoperative ancef was given. A timeout was performed. Attention was then turned to the abdomen. A midline incision was made from the xiphoid to the pubis. The subcutaneous tissues were divided with cautery. The fascia was divided. The peritoneum was elevated and entered sharply. The abdomen was explored. The liver, gallbladder and bowel appeared normal. Next, the Omni retractor was used to assist with exposure. The small bowel was packed to the patient's right abdomen, out of the operativefield. The ligament of treitz was divided sharply. The retroperitoneum was then incised sharply, overlying the aorta from the renal arteries to the common iliac arteries bilaterally. Bilateral EIA, and the left IIA were encircles in vessel loops. The right IIA was transected and oversewn with 3-0 prolene suture. The IMV was identified and preserved. The left renal vein was identified and preserved throughout the case. However, gonadal and adrenal vein branches were ligated with 2-0 silk ties. After we achieved an ACT>300 the aorta was clamped. One clamp was placed just beneath the right renal and above the left renal artery and clamps were placed on the bilateral EIA and left IIA. A longitudinal arteriotomy was created on the anterior surface of the infrarenal aorta.We encountered soft plaque, which was removed. Lumbar branches were oversewn from the inside of the aneurysm sac with 2-0 silk sutures. The FILIPPO was noted to have pulsatile back bleeding and was ligated using 2-0 silk.The proximal aorta was then T'd off to a healthy sewing ring and endarterectomized. The proximal end of the Dacron graft (18mm tube) was cut to size. The proximal anastomosis was then performed in [id number] fashion with running 3-0 prolene. Once the proximal anastomosis was complete, the aortic cross clamp was removed and replaced on the the graft distally. Hemostasis was good. The left iliac bifurcation was then T'd off and the end of the Dacron graft was cut to size. The distal anastomosis was then sewn using 3-0 prolene in a running fashion. Of note the EIA and IIA were endarterectomized in order to have a healthy end point. The right graft to EIA anastomosis was performed in an end-to-end fashion with 3-0 prolene suture. Upon completion of the anastomosis, we slowly unclamped the graft. The patient tolerated this well.Doppler signals in the bilateral iliac arteries were strong triphasic. Thrombin-soaked gelfoam was then applied to the anastomoses. Protamine was given. Thrombin-soaked gelfoam was used to achieve hemostasis. Once we were satisfied with hemostasis, the aneurysm sac was closed over the graft using running 2-0 monocryl, and the retroperitoneum was closed over the repair with 2-0 monocryl. The bowelwas then inspected, noted to be healthy and viable. A small serosal erosion on the transverse colonwas noted where the retractors were location, which we imbricated preemptively with interrupted 3-0 silk suture. It was replaced in anatomic position. Next, the fascia was closed with running 1PDS. The skin was closed with mercy. The patient had palpable DP and PTs bilaterally. The patient was awoken, extubated and taken to PACU in stable condition. All counts correct. Dr. Duke was present and scrubbed for entire case. Infection Bundle used? ancef Attestation: Case Date: 06/03/2019 Bety Wright MD 06/04/2019 documented in this encounter Plan of Treatment Upcoming Encounters Date Type Department Care Team (Late st Contact Info) Description 06/20/2024 10:00 AM EST Office Visit D[facility]ology at [place] [address] [place] [address] Mustapha Lemos MD [address] [facility] [place] [address] documented as of this encounter Procedures Procedure Name Priority Date/Time Associated Diagnosis Comments HC VENIPUNCTURE Routine 06/10/2019 8:53 AM EST HEMOGRAM Routine 06/10/2019 8:53 AM EST DIFFERENTIAL, AUTOMATED Routine 06/10/19 8:53 AM EST HC CBC,PLT & AUTO DIFF Routine 0 8:53 AM EST HC VENIPUNCTURE Routine 06/09/2019 6:39 PM EST HEMOGRAM Routine 06/09/2019 6:39 PM EST DIFFERENTIAL, AUTOMATED Routine 06/09/19 20 6:39 PM EST HC CBC,PLT & AUTO DIFF Routine 0 6:39 PM EST BMP W/FASTING GLUCOSE Routine 06/09/2019 4:40 AM EST HEMOGRAM Routine 06/09/2019 4:40 AM EST DIFFERENTIAL, AUTOMATED Routine 06/09/19 4:40 AM EST HC VENIPUNCTURE Routine 06/09/2019 4:40 AM EST HC VENIPUNCTURE Routine 06/08/2019 6:17 PM EST HEMOGRAM Routine 06/08/2019 6:17 PM EST DIFFERENTIAL, AUTOMATED Routine 06/08/19 6:17 PM EST HC CBC,PLT & AUTO DIFF Routine 0 6:17 PM EST HC VENIPUNCTURE Routine 06/08/2019 7:36 AM EST HEMOGRAM Routine 06/08/2019 7:36 AM EST DIFFERENTIAL, AUTOMATED Routine 06/08/19 7:36 AM EST HC CBC,PLT & AUTO DIFF Routine 0 7:36 AM EST HC VENIPUNCTURE Routine 06/07/2019 6:04 PM EST HEMOGRAM Routine 06/07/2019 6:04 PM EST DIFFERENTIAL, AUTOMATED Routine 06/07/19 20 6:04 PM EST HC CBC,PLT & AUTO DIFF Routine 0 6:04 PM EST XR ABDOMEN FLAT AND UPRIGHT Routine 06/07/2019 11:14 AM EST HC VENIPUNCTURE Routine 06/07/2019 7:31 AM EST HEMOGRAM Routine 06/07/2019 7:31 AM EST DIFFERENTIAL, AUTOMATED Routine 06/07/19 7:31 AM EST HC CBC,PLT & AUTO DIFF Routine 0 7:31 AM EST HC VENIPUNCTURE Routine 06/06/2019 6:49 PM EST HEMOGRAM Routine 06/06/2019 6:49 PM EST DIFFERENTIAL, AUTOMATED Routine 06/06/19 6:49 PM EST HC CBC,PLT & AUTO DIFF Routine 0 6:49 PM EST XR ABDOMEN FLAT AND UPRIGHT Routine 06/06/2019 2:49 PM EST XR CHEST PA AND LATERAL Routine 06/06/19 2:49 PM EST HEMOGRAM STAT 06/06/2019 12:47 PM EST DIFFERENTIAL, AUTOMATED STAT 06/06/19 12:47 PM EST HC CBC,PLT & AUTO DIFF STAT 0 12:47 PM EST BASIC METABOLIC PANEL (NON-FASTING) STAT 06/06/2019 12:47 PM EST BMP W/FASTING GLUCOSE Routine 06/06/2019 4:25 AM EST HEMOGRAM Routine 06/06/2019 4:25 AM EST DIFFERENTIAL, AUTOMATED Routine 06/06/19 4:25 AM EST HC CBC,PLT & AUTO DIFF Routine 0 4:25 AM EST EKG 12-LEAD Routine 06/06/2019 3:57 AM EST Atrial fibrillation, unspecified type HC VENIPUNCTURE Routine 06/05/2019 6:54 PM EST HEMOGRAM Routine 06/05/2019 6:54 PM EST DIFFERENTIAL, AUTOMATED Routine 06/05/19 6:54 PM EST HC CBC,PLT & AUTO DIFF Routine 0 6:54 PM EST XR ABDOMEN FLAT AND UPRIGHT STAT 06/05/2019 1:04 PM EST HC VENIPUNCTURE Routine 06/05/2019 10:21 AM EST HEMOGRAM Routine 06/05/2019 10:21 AM EST DIFFERENTIAL, AUTOMATED Routine 06/05/19 20 10:21 AM EST HC CBC,PLT & AUTO DIFF Routine 0 10:21 AM EST POCT GLUCOSE Routine 06/05/2019 12:57 AM EST HC MAGNESIUM, SERUM Routine 06/04/2019 1 1:07 PM EST HC VENIPUNCTURE Routine 06/04/2019 11:07 PM EST POCT GLUCOSE Routine 06/04/2019 11:05 PM EST POCT GLUCOSE Routine 06/04/2019 9:05 PM EST EKG 12-LEAD STAT 06/04/2019 8:09 PM EST Hyperkalemia POCT GLUCOSE Routine 06/04/2019 6:36 PM EST EKG 12-LEAD STAT 06/04/2019 6:31 PM EST Hyperkalemia HC SODIUM, URINE Routine 06/04/2019 6:19 PM EST HC CREATININE - NON BLOOD Routine 2019 6:19 PM EST HC VENIPUNCTURE Routine 06/04/2019 5:56 PM EST HEMOGRAM Routine 06/04/2019 5:56 PM EST DIFFERENTIAL, AUTOMATED Routine 06/04/19 20 5:56 PM EST HC CBC,PLT & AUTO DIFF Routine 0 5:56 PM EST BMP W/FASTING GLUCOSE Routine 06/04/2019 10:13 AM EST HC VENIPUNCTURE Routine 06/04/2019 10:13 AM EST HC HEMOGRAM STAT 06/03/2019 8:40 PM EST HC L-LACTATE Routine 06/03/2019 8:40 PM EST XR CHEST ONE VIEW STAT 06/03/2019 5:5 2 PM EST BMP W/FASTING GLUCOSE STAT 06/03/2019 5:15 PM EST HC HEMOGRAM STAT 06/03/2019 5:15 PM EST HC L-LACTATE Routine 06/03/2019 5:15 PM EST EKG 12-LEAD STAT 06/03/2019 5:12 PM EST Malignant melanoma of skin ENDARTERECTOMY, ILIAC W OR W/O PATCH GRAFT Routine 06/03/2019 3:50 PM EST ENDARTERECTOMY, ABD.AORTA W OR W/O PATCH GRAFT Routine 06/03/2019 3:50 PM EST REPAIR AORTIC ANEURYSM INVOLVING RENAL OR MESENTERIC VESSELS Routine 06/03/2019 3:50 PM EST BLOOD GAS 2 ARTERIAL Routine 06/03/2019 3:31 PM EST BLOOD GAS 2 ARTERIAL Routine 06/03/2019 2:50 PM EST BLOOD GAS 2 ARTERIAL Routine 06/03/2019 2:18 PM EST BLOOD GAS 2 ARTERIAL Routine 06/03/2019 1:43 PM EST BLOOD GAS 2 ARTERIAL Routine 06/03/2019 12:35 PM EST BLOOD GAS 2 ARTERIAL Routine 06/03/2019 11:38 AM EST BLOOD GAS 2 ARTERIAL Routine 06/03/2019 8:54 AM EST Thromboendartectmy Abd Aorta ([id number]) 06/03/2019 7:55 AM EST AAA Thromboendartectmy Iliac ([id number]) 06/03/2019 7:55 AM EST AAA Reaneurysm/Grft Ins, Abd Aort W/Viscer ([id number]) 06/03/2019 7:55 AM EST AAA Reaneurysm/Grft Ins, Iliac ([id number]) 06/03/2019 7:55 AM EST AAA XR FLUORO NO RAD <1HR - OR USE Routine 06/03/2019 7:53 AM EST REPAIR ILIAC ARTERY ANEURYSM (CHANCE, HYPOGASTRIC OR EIA) Routine 06/03/2019 6:13 AM EST ABORH RECHECK STATUS STAT 06/03/2019 6:11 AM EST HEMOGRAM Routine 06/03/2019 6:11 AM EST HC VENIPUNCTURE STAT 06/03/2019 6:11 AM EST 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 ? Narrative 06/20/2019 9:59 AM EST EXAMINATION: CT [...] Osseous structures: No significant findings. Procedure Note Patrick Walton MD - 06/20/2019 EXAMINATION: CT ANGIOGRAM [...] contact the number below. Electronically signed by: Patrick Walton [facility]([phone]), at 06/20/2019 9:59 AM Helio Duke MD IMG CT ORDERABLES * (ABNORMAL) Differential, Automated (06/10/2019 8:53 AM EST) Neutrophils % 83.4 % [facility] Neutr Abs (ANC) 7.36(H) 1.70 - 6.10 x10(3)/[facility] Lymphocytes % 7.7 % [facility] Lymphocytes Abs 0.7(L) 0.9 - 3.2 x10(3)/[facility] Monocytes % 5.6 % [facility] Monocyte Abs 0.5 0.3 - 0.9 x10(3)/[facility] Eosinophils % 1.4 % [facility] Eosinophils Abs 0.1 0.0 - 0.4 x10(3)/[facility] Basophils % 0.2 % [facility] Basophils Abs 0.0 0.0 - 0.1 x10(3)/[facility] Immature Gran % 1.70 % [facility] Comment: Immature granulocytes(IG's)percentage and absolute count will include metamyelocytes, myelocytes, and promyelocytes. Blood smears from CBCs yielding IG's will be scanned manually for concordance. If this scan disagrees with the automated IG or if promyelocytes are noted, a manual differential will be performed. Melanie Gran Abs 0.15(H) 0.00 - 0.04 x10(3)/[facility] Blood specimen (specimen) 06/10/2019 8:53 AM EST 06/10/2019 8:58 AM EST Narrative Resulting Agency Comment Spec In Lab Aliyah BUNDY HEMATOLOGY ORDERA BLES [facility] [place] [address] * (ABNORMAL) Hemogram (06/10/2019 8:53 AM EST) WBC 8.8 4.0 - 9.5 x10(3)/[facility] LABORATORY RBC 2.74(L) 4.58 - 5.54 x10(6)/[facility] Hemoglobin 9.0(L) 13.7 - 16.5 gm/dL [facility] Hematocrit 26.9(L) 40.5 - 48.5 % [facility] MCV 98.2(H) 82.9 - 93.1 fL [facility] MCH 32.8(H) 27.5 - 32.1 pg [facility] MCHC 33.5 32.0 - 35.7 gm/dL [facility] Platelets 226 145 - 357 x10(3)/[facility]ORY RDWSD 47.8(H) 36.0 - 45.0 [facility] RDWCV 13.5 11.4 - 13.8 % [facility] MPV 10.7 7.6 - 12.9 [facility] nRBC % Auto 0.0 % [facility] nRBC Abs Auto 0.000 0.000 - 0.000 x10(3)/[facility] Blood specimen (specimen) 06/10/2019 8:53 AM EST 06/10/2019 8:58 AM EST Narrative Resulting Agency Comment Spec In Lab Aliyah BUNDY HEMATOLOGY ORDERA BLES [facility] [place] [address] * (ABNORMAL) BMP w/fasting Glucose (06/10/2019 8:53 AM EST) Glucose Fasting 145(H) 65 - 99 mg/dL [facility] Comment: ?Fasting* Glucose Interpretive Criteria [...] of Diabetes Mellitus, Position Statement from the [employer]. ??Diabetes Care, Volume 33, Supplement 1, Apr 2009 BUN 25(H) 10 - 20 mg/dL [facility] Creatinine 1.25 0.80 - 1.50 mg/dL [facility] Sodium 143 135 - 145 mmol/L [facility] Potassium 3.4(L) 3.5 - 5.0 mmol/L [facility] Comment: Please note: ??Patients with WBC >100,000 may have falsely elevated Potassium levels. ??For accurate Potassium quantification in these patients send serum separator tube (gold top) for subsequent determinations. ??Contact the Clinical Chemistry Laboratory if there are any questions. Chloride 107 98 - 107 mmol/L [facility] CO2 25 22 - 31 mmol/L [facility] Anion Gap 11 5 - 15 mmol/L [facility] Calcium 8.4(L) 8.5 - 10.5 mg/dL [facility] Estimated GFR 56(L) >=60 mL/min/1. 73 m?? [facility] Comment: The eGFR was calculated using the CKD-EPI equation. As with all creatinine based estimates of kidney function, eGFR values calculated with the CKD-EPI equation are not accurate in patients with acute kidney failure, extremes of body mass or the acutely ill. [email or web address] eGFR 65 >=60 mL/min/1. 73 m?? [facility] Comment: The eGFR was calculated using the CKD-EPI equation. As with all creatinine based estimates of kidney function, eGFR values calculated with the CKD-EPI equation are not accurate in patients with acute kidney failure, extremes of body mass or the acutely ill. [email or web address] [email or web address] [email or web address] Blood specimen (specimen) 06/10/2019 8:53 AM EST 06/10/2019 8:58 AM EST Narrative Resulting Agency Comment Spec In Lab Helio Duke MD CHEMISTRY ORDERABLES Performing Organization Address City/State/[facility] Co de Phone Number [facility] [place] [address] * (ABNORMAL) Differential, Automated (06/09/2019 6:39 PM EST) Neutrophils % 80.6 % [facility] Neutr Abs (ANC) 6.96(H) 1.70 - 6.10 x10(3)/mc L [facility] Lymphocytes % 8.3 % [facility] Lymphocytes Abs 0.7(L) 0.9 - 3.2 x10(3)/mc L [facility] Monocytes % 6.8 % [facility] Monocyte Abs 0.6 0.3 - 0.9 x10(3)/mc L [facility] Eosinophils % 1.9 % [facility] Eosinophils Abs 0.2 0.0 - 0.4 x10(3)/mc L [facility] Basophils % 0.5 % [facility] Basophils Abs 0.0 0.0 - 0.1 x10(3)/mc L [facility] Immature Gran % 1.90 % [facility] Comment: Immature granulocytes(IG's)percentage and absolute count will include metamyelocytes, myelocytes, and promyelocytes. Blood smears from CBCs yielding IG's will be scanned manually for concordance. If this scan disagrees with the automated IG or if promyelocytes are noted, a manual differential will be performed. Melanie Gran Abs 0.16(H) 0.00 - 0.04 x10(3)/mc L [facility] Blood specimen (specimen) 06/09/2019 6:39 PM EST 06/09/2019 6:49 PM EST Narrative Resulting Agency Comment Spec In Lab Aliyah BUNDY HEMATOLOGY ORDERA BLES [facility] [place] [address] * (ABNORMAL) Hemogram (06/09/2019 6:39 PM EST) WBC 8.6 4.0 - 9.5 x10(3)/[facility] RBC 2.72(L) 4.58 - 5.54 x10(6)/[facility] Hemoglobin 8.8(L) 13.7 - 16.5 gm/dL [facility] Hematocrit 26.5(L) 40.5 - 48.5 % [facility] MCV 97.4(H) 82.9 - 93.1 fL [facility] MCH 32.4(H) 27.5 - 32.1 pg [facility] MCHC 33.2 32.0 - 35.7 gm/dL [facility] Platelets 196 145 - 357 x10(3)/[facility]OR[facility]ORY RDWSD 45.8(H) 36.0 - 45.0 [facility] RDWCV 13.2 11.4 - 13.8 % [facility] MPV 10.7 7.6 - 12.9 fL [facility] nRBC % Auto 0.0 % [facility] nRBC Abs Auto 0.000 0.000 - 0.000 x10(3)/mcL [facility] Blood specimen (specimen) 06/09/2019 6:39 PM EST 06/09/2019 6:49 PM EST Narrative Resulting Agency Comment Spec In Lab Aliyah BUNDY HEMATOLOGY ORDERA BLES [facility] [place] [address] * (ABNORMAL) BMP w/fasting Glucose (06/09/2019 6:39 PM EST) Glucose Fasting 110(H) 65 - 99 mg/dL [facility] Comment: ?Fasting* Glucose Interpretive Criteria [...] of Diabetes Mellitus, Position Statement from the [employer]. ??Diabetes Care, Volume 33, Supplement 1, Apr 2009 BUN 28(H) 10 - 20 mg/dL [facility] Creatinine 1.10 0.80 - 1.50 mg/dL [facility] Sodium 143 135 - 145 mmol/L [facility] Potassium 3.7 3.5 - 5.0 mmol/L [facility] Comment: Please note: ??Patients with WBC >100,000 may have falsely elevated Potassium levels. ??For accurate Potassium quantification in these patients send serum separator tube (gold top) for subsequent determinations. ??Contact the Clinical Chemistry Laboratory if there are any questions. Chloride 106 98 - 107 mmol/L [facility] CO2 27 22 - 31 mmol/L [facility] Anion Gap 10 5 - 15 mmol/L [facility] Calcium 8.4(L) 8.5 - 10.5 mg/dL [facility] Estimated GFR 66 >=60 mL/min/1. 73 m?? [facility] Comment: The eGFR was calculated using the CKD-EPI equation. As with all creatinine based estimates of kidney function, eGFR values calculated with the CKD-EPI equation are not accurate in patients with acute kidney failure, extremes of body mass or the acutely ill. [email or web address] [email or web address] [email or web address] eGFR 76 >=60 mL/min/1. 73 m?? [facility] Comment: The eGFR was calculated using the CKD-EPI equation. As with all creatinine based estimates of kidney function, eGFR values calculated with the CKD-EPI equation are not accurate in patients with acute kidney failure, extremes of body mass or the acutely ill. [email or web address] [email or web address] Blood specimen (specimen) 06/09/2019 6:39 PM EST 06/09/2019 6:49 PM EST Narrative Resulting Agency Comment Spec In Lab Helio Duke MD CHEMISTRY ORDERABLES Performing Organization Address City/State/[facility] Co de Phone Number [facility] [place] [address] * (ABNORMAL) Differential, Automated (06/09/2019 4:40 AM EST) Neutrophils % 77.0 % [facility] Neutr Abs (ANC) 5.70 1.70 - 6.10 x10(3)/mc L [facility] Lymphocytes % 11.3 % [facility] Lymphocytes Abs 0.8(L) 0.9 - 3.2 x10(3)/mc L [facility] Monocytes % 7.3 % [facility] Monocyte Abs 0.5 0.3 - 0.9 x10(3)/mc L [facility] Eosinophils % 2.4 % [facility] Eosinophils Abs 0.2 0.0 - 0.4 x10(3)/[facility] Basophils % 0.4 % [facility] Basophils Abs 0.0 0.0 - 0.1 x10(3)/[facility] Immature Gran % 1.60 % [facility] Comment: Immature granulocytes(IG's)percentage and absolute count will include metamyelocytes, myelocytes, and promyelocytes. Blood smears from CBCs yielding IG's will be scanned manually for concordance. If this scan disagrees with the automated IG or if promyelocytes are noted, a manual differential will be performed. Melanie Gran Abs 0.12(H) 0.00 - 0.04 x10(3)/[facility] Blood specimen (specimen) 06/09/2019 4:40 AM EST 06/09/2019 4:59 AM EST Narrative Resulting Agency Comment Spec In Lab Aliyah BUNDY HEMATOLOGY ORDERA BLES [facility] [place] [address] * (ABNORMAL) Hemogram (06/09/2019 4:40 AM EST) WBC 7.4 4.0 - 9.5 x10(3)/[facility] RBC 2.43(L) 4.58 - 5.54 x10(6)/[facility] Hemoglobin 8.0(L) 13.7 - 16.5 gm/dL [facility] Hematocrit 24.6(L) 40.5 - 48.5 % [facility] MCV 101.2(H) 82.9 - 93.1 fL [facility] MCH 32.9(H) 27.5 - 32.1 pg [facility] MCHC 32.5 32.0 - 35.7 gm/dL [facility] Platelets 182 145 - 357 x10(3)/[facility]ORY RDWSD 49.5(H) 36.0 - 45.0 [facility] RDWCV 13.3 11.4 - 13.8 % [facility] MPV 10.3 7.6 - 12.9 [facility] nRBC % Auto 0.0 % [facility] nRBC Abs Auto 0.000 0.000 - 0.000 x10(3)/[facility] Blood specimen (specimen) 06/09/2019 4:40 AM EST 06/09/2019 4:59 AM EST Narrative Resulting Agency Comment Spec In Lab Aliyah BUNDY HEMATOLOGY ORDERA BLES Performing Organization Address City/[facility] Co de Phone Number [facility] [place] [address] * (ABNORMAL) BMP w/fasting Glucose (06/09/2019 4:40 AM EST) Glucose Fasting 87 65 - 99 mg/dL [facility] Comment: ?Fasting* Glucose Interpretive Criteria [...] of Diabetes Mellitus, Position Statement from the [employer]. ??Diabetes Care, Volume 33, Supplement 1, Apr 2009 BUN 29(H) 10 - 20 mg/dL [facility] Creatinine 1.18 0.80 - 1.50 mg/dL [facility] Sodium 145 135 - 145 mmol/L [facility] Potassium 3.8 3.5 - 5.0 mmol/L [facility] Comment: Please note: ??Patients with WBC >100,000 may have falsely elevated Potassium levels. ??For accurate Potassium quantification in these patients send serum separator tube (gold top) for subsequent determinations. ??Contact the Clinical Chemistry Laboratory if there are any questions. Chloride 107 98 - 107 mmol/L [facility] CO2 26 22 - 31 mmol/L [facility] Anion Gap 12 5 - 15 mmol/L [facility] Calcium 8.2(L) 8.5 - 10.5 mg/dL [facility] Estimated GFR 60 >=60 mL/min/1. 73 m?? [facility] Comment: The eGFR was calculated using the CKD-EPI equation. As with all creatinine based estimates of kidney function, eGFR values calculated with the CKD-EPI equation are not accurate in patients with acute kidney failure, extremes of body mass or the acutely ill. [email or web address] [email or web address] [email or web address] eGFR 70 >=60 mL/min/1. 73 m?? [facility] Comment: The eGFR was calculated using the CKD-EPI equation. As with all creatinine based estimates of kidney function, eGFR values calculated with the CKD-EPI equation are not accurate in patients with acute kidney failure, extremes of body mass or the acutely ill. [email or web address] [email or web address] [email or web address] Blood specimen (specimen) 06/09/2019 4:40 AM EST 06/09/2019 4:59 AM EST Narrative Resulting Agency Comment Spec In Lab Helio Duke MD CHEMISTRY ORDERABLES [facility] [place] [address] * (ABNORMAL) Differential, Automated (06/08/2019 6:17 PM EST) Neutrophils % 78.9 % [facility] Neutr Abs (ANC) 6.27(H) 1.70 - 6.10 x10(3)/mc L [facility] Lymphocytes % 9.9 % [facility] Lymphocytes Abs 0.8(L) 0.9 - 3.2 x10(3)/[facility] Monocytes % 6.9 % [facility] Monocyte Abs 0.6 0.3 - 0.9 x10(3)/[facility] Eosinophils % 2.6 % [facility] Eosinophils Abs 0.2 0.0 - 0.4 x10(3)/[facility] Basophils % 0.4 % [facility] Basophils Abs 0.0 0.0 - 0.1 x10(3)/[facility] Immature Gran % 1.30 % [facility] Comment: Immature granulocytes(IG's)percentage and absolute count will include metamyelocytes, myelocytes, and promyelocytes. Blood smears from CBCs yielding IG's will be scanned manually for concordance. If this scan disagrees with the automated IG or if promyelocytes are noted, a manual differential will be performed. Melanie Gran Abs 0.10(H) 0.00 - 0.04 x10(3)/[facility] Blood specimen (specimen) 06/08/2019 6:17 PM EST 06/08/2019 6:28 PM EST Narrative Resulting Agency Comment Spec In Lab Aliyah BUNDY HEMATOLOGY ORDERA BLES [facility] [place] [address] * (ABNORMAL) Hemogram (06/08/2019 6:17 PM EST) WBC 8.0 4.0 - 9.5 x10(3)/[facility] LABOR[facility]ORY RBC 2.62(L) 4.58 - 5.54 x10(6)/[facility] Hemoglobin 8.4(L) 13.7 - 16.5 gm/dL [facility] Hematocrit 26.4(L) 40.5 - 48.5 % [facility] MCV 100.8(H) 82.9 - 93.1 fL [facility] MCH 32.1 27.5 - 32.1 pg [facility] MCHC 31.8(L) 32.0 - 35.7 gm/dL [facility] Platelets 179 145 - 357 x10(3)/[facility] LABOR[facility]ORY RDWSD 49.1(H) 36.0 - 45.0 fL [facility] RDWCV 13.3 11.4 - 13.8 % [facility] MPV 10.4 7.6 - 12.9 [facility] LAB[facility] nRBC % Auto 0.0 % [facility] nRBC Abs Auto 0.000 0.000 - 0.000 x10(3)/[facility] Blood specimen (specimen) 06/08/2019 6:17 PM EST 06/08/2019 6:28 PM EST Narrative Resulting Agency Comment Spec In Lab Aliyah BUNDY HEMATOLOGY ORDERA BLES [facility] [place] [address] * (ABNORMAL) BMP w/fasting Glucose (06/08/2019 6:17 PM EST) Glucose Fasting 89 65 - 99 mg/dL [facility] Comment: ?Fasting* Glucose Interpretive Criteria [...] of Diabetes Mellitus, Position Statement from the [employer]. ??Diabetes Care, Volume 33, Supplement 1, Apr 2009 BUN 30(H) 10 - 20 mg/dL [facility] Creatinine 1.31 0.80 - 1.50 mg/dL [facility] Sodium 146(H) 135 - 145 mmol/L [facility] Potassium 4.0 3.5 - 5.0 mmol/L [facility] Comment: Please note: ??Patients with WBC >100,000 may have falsely elevated Potassium levels. ??For accurate Potassium quantification in these patients send serum separator tube (gold top) for subsequent determinations. ??Contact the Clinical Chemistry Laboratory if there are any questions. Chloride 108(H) 98 - 107 mmol/L [facility] CO2 28 22 - 31 mmol/L [facility] Anion Gap 10 5 - 15 mmol/L [facility] Calcium 8.4(L) 8.5 - 10.5 mg/dL [facility] Estimated GFR 53(L) >=60 mL/min/1. 73 m?? [facility] Comment: The eGFR was calculated using the CKD-EPI equation. As with all creatinine based estimates of kidney function, eGFR values calculated with the CKD-EPI equation are not accurate in patients with acute kidney failure, extremes of body mass or the acutely ill. [email or web address] [place], [email or web address] eGFR 62 >=60 mL/min/1. 73 m?? [facility] Comment: The eGFR was calculated using the CKD-EPI equation. As with all creatinine based estimates of kidney function, eGFR values calculated with the CKD-EPI equation are not accurate in patients with acute kidney failure, extremes of body mass or the acutely ill. [email or web address]/[facility] [email or web address] Blood specimen (specimen) 06/08/2019 6:17 PM EST 06/08/2019 6:28 PM EST Narrative Resulting Agency Comment Spec In Lab Helio Duke MD CHEMISTRY ORDERABLES [facility] [place] [address] * (ABNORMAL) Differential, Automated (06/08/2019 7:36 AM EST) Neutrophils % 77.4 % [facility] Neutr Abs (ANC) 5.93 1.70 - 6.10 x10(3)/ L [facility] Lymphocytes % 10.7 % [facility] Lymphocytes Abs 0.8(L) 0.9 - 3.2 x10(3)/ L [facility] Monocytes % 7.6 % [facility] Monocyte Abs 0.6 0.3 - 0.9 x10(3)/[facility] LABORATORY Eosinophils % 2.9 % [facility] Eosinophils Abs 0.2 0.0 - 0.4 x10(3)/[facility] LABORATORY Basophils % 0.4 % [facility] Basophils Abs 0.0 0.0 - 0.1 x10(3)/[facility] LABORATORY Immature Gran % 1.00 % [facility] Comment: Immature granulocytes(IG's)percentage and absolute count will include metamyelocytes, myelocytes, and promyelocytes. Blood smears from CBCs yielding IG's will be scanned manually for concordance. If this scan disagrees with the automated IG or if promyelocytes are noted, a manual differential will be performed. Melanie Gran Abs 0.08(H) 0.00 - 0.04 x10(3)/ L [facility] Blood specimen (specimen) 06/08/2019 7:36 AM EST 06/08/2019 8:04 AM EST Narrative Resulting Agency Comment Spec In Lab Aliyah BUNDY HEMATOLOGY ORDERA BLES [facility] [place] [address] * (ABNORMAL) Hemogram (06/08/2019 7:36 AM EST) Pathologist [facility] WBC 7.7 4.0 - 9.5 x10(3)/[facility] LABORATORY RBC 2.55(L) 4.58 - 5.54 x10(6)/[facility] LABORATORY Hemoglobin 8.4(L) 13.7 - 16.5 gm/dL [facility] Hematocrit 25.9(L) 40.5 - 48.5 % [facility] MCV 101.6(H) 82.9 - 93.1 fL [facility] MCH 32.9(H) 27.5 - 32.1 pg [facility] MCHC 32.4 32.0 - 35.7 gm/dL [facility] Platelets 168 145 - 357 x10(3)/[facility] RDWSD 50.0(H) 36.0 - 45.0 [facility] LABORATORY RDWCV 13.5 11.4 - 13.8 % [facility] MPV 10.4 7.6 - 12.9 [facility] LABORATORY nRBC % Auto 0.0 % [facility] nRBC Abs Auto 0.000 0.000 - 0.000 x10(3)/[facility] LABORATORY Blood specimen (specimen) 06/08/2019 7:36 AM EST 06/08/2019 8:04 AM EST Narrative Resulting Agency Comment Spec In Lab Aliyah BUNDY HEMATOLOGY ORDERA BLES [facility] [place] [address] * (ABNORMAL) BMP w/fasting Glucose (06/08/2019 7:36 AM EST) Pathologist [facility] Glucose Fasting 85 65 - 99 mg/dL [facility] Comment: ?Fasting* Glucose Interpretive Criteria [...] of Diabetes Mellitus, Position Statement from the [employer]. ??Diabetes Care, Volume 33, Supplement 1, Apr 2009 BUN 29(H) 10 - 20 mg/dL [facility] Creatinine 1.25 0.80 - 1.50 mg/dL [facility] Sodium 145 135 - 145 mmol/L [facility] Potassium 4.1 3.5 - 5.0 mmol/L [facility] Comment: Please note: ??Patients with WBC >100,000 may have falsely elevated Potassium levels. ??For accurate Potassium quantification in these patients send serum separator tube (gold top) for subsequent determinations. ??Contact the Clinical Chemistry Laboratory if there are any questions. Chloride 108(H) 98 - 107 mmol/L [facility] CO2 27 22 - 31 mmol/L [facility] Anion Gap 10 5 - 15 mmol/L [facility] Calcium 8.1(L) 8.5 - 10.5 mg/dL [facility] Estimated GFR 56(L) >=60 mL/min/1. 73 m?? [facility] Comment: The eGFR was calculated using the CKD-EPI equation. As with all creatinine based estimates of kidney function, eGFR values calculated with the CKD-EPI equation are not accurate in patients with acute kidney failure, extremes of body mass or the acutely ill. [email or web address] eGFR 65 >=60 mL/min/1. 73 m?? [facility] Comment: The eGFR was calculated using the CKD-EPI equation. As with all creatinine based estimates of kidney function, eGFR values calculated with the CKD-EPI equation are not accurate in patients with acute kidney failure, extremes of body mass or the acutely ill. [email or web address] Blood specimen (specimen) 06/08/2019 7:36 AM EST 06/08/2019 8:03 AM EST Narrative Resulting Agency Comment Spec In Lab Helio Duke MD CHEMISTRY ORDERABLES [facility] [place] [address] * (ABNORMAL) Differential, Automated (06/07/2019 6:04 PM EST) Neutrophils % 80.5 % [facility] Neutr Abs (ANC) 6.56(H) 1.70 - 6.10 x10(3)/ L [facility] Lymphocytes % 9.0 % [facility] Lymphocytes Abs 0.7(L) 0.9 - 3.2 x10(3)/[facility] LABORATORY Monocytes % 7.2 % [facility] Monocyte Abs 0.6 0.3 - 0.9 x10(3)/[facility] LABORATORY Eosinophils % 2.3 % [facility] Eosinophils Abs 0.2 0.0 - 0.4 x10(3)/[facility] LABORATORY Basophils % 0.4 % [facility] Basophils Abs 0.0 0.0 - 0.1 x10(3)/[facility] LABORATORY Immature Gran % 0.60 % [facility] Comment: Immature granulocytes(IG's)percentage and absolute count will include metamyelocytes, myelocytes, and promyelocytes. Blood smears from CBCs yielding IG's will be scanned manually for concordance. If this scan disagrees with the automated IG or if promyelocytes are noted, a manual differential will be performed. Melanie Gran Abs 0.05(H) 0.00 - 0.04 x10(3)/ L [facility] Blood specimen (specimen) 06/07/2019 6:04 PM EST 06/07/2019 6:12 PM EST Narrative Resulting Agency Comment Spec In Lab Aliyah BUNDY HEMATOLOGY ORDERA BLES Performing Organization Address City/[facility]/[place] [address] * (ABNORMAL) Hemogram (06/07/2019 6:04 PM EST) WBC 8.2 4.0 - 9.5 x10(3)/[facility] LABORATORY RBC 2.61(L) 4.58 - 5.54 x10(6)/[facility] LAB[facility] Hemoglobin 8.5(L) 13.7 - 16.5 gm/dL [facility] Hematocrit 26.6(L) 40.5 - 48.5 % [facility] MCV 101.9(H) 82.9 - 93.1 fL [facility] MCH 32.6(H) 27.5 - 32.1 pg [facility] MCHC 32.0 32.0 - 35.7 gm/dL [facility] Platelets 165 145 - 357 x10(3)/[facility] LABORATORY RDWSD 49.9(H) 36.0 - 45.0 [facility] LABORATORY RDWCV 13.6 11.4 - 13.8 % [facility] MPV 10.4 7.6 - 12.9 [facility] LABORATORY nRBC % Auto 0.0 % [facility] nRBC Abs Auto 0.000 0.000 - 0.000 x10(3)/[facility] LABOR[facility] Blood specimen (specimen) 06/07/2019 6:04 PM EST 06/07/2019 6:12 PM EST Narrative Resulting Agency Comment Spec In Lab Aliyah BUNDY HEMATOLOGY ORDERA BLES Performing Organization Address City/[facility]/ZIP Co de Phone Number [facility] [place] [address] * (ABNORMAL) BMP w/fasting Glucose (06/07/2019 6:04 PM EST) Glucose Fasting 84 65 - 99 mg/dL [facility] Comment: ?Fasting* Glucose Interpretive Criteria [...] of Diabetes Mellitus, Position Statement from the [employer]. ??Diabetes Care, Volume 33, Supplement 1, Apr 2009 BUN 27(H) 10 - 20 mg/dL [facility] Creatinine 1.35 0.80 - 1.50 mg/dL [facility] Sodium 147(H) 135 - 145 mmol/L [facility] Potassium 4.1 3.5 - 5.0 mmol/L [facility] Comment: Please note: ??Patients with WBC >100,000 may have falsely elevated Potassium levels. ??For accurate Potassium quantification in these patients send serum separator tube (gold top) for subsequent determinations. ??Contact the Clinical Chemistry Laboratory if there are any questions. Chloride 108(H) 98 - 107 mmol/L [facility] CO2 26 22 - 31 mmol/L [facility] Anion Gap 13 5 - 15 mmol/L [facility] Calcium 8.3(L) 8.5 - 10.5 mg/dL [facility] Estimated GFR 51(L) >=60 mL/min/1. 73 m?? [facility] Comment: The eGFR was calculated using the CKD-EPI equation. As with all creatinine based estimates of kidney function, eGFR values calculated with the CKD-EPI equation are not accurate in patients with acute kidney failure, extremes of body mass or the acutely ill. [email or web address] eGFR 60 >=60 mL/min/1. 73 m?? [facility] Comment: The eGFR was calculated using the CKD-EPI equation. As with all creatinine based estimates of kidney function, eGFR values calculated with the CKD-EPI equation are not accurate in patients with acute kidney failure, extremes of body mass or the acutely ill. [email or web address] Blood specimen (specimen) 06/07/2019 6:04 PM EST 06/07/2019 6:11 PM EST Narrative Resulting Agency Comment Spec In Lab Helio Duke MD CHEMISTRY ORDERABLES Performing Organization Address City/State/[facility] Co de Phone Number [facility] [place] [address] * XR Abdomen Flat & Upright (06/07/2019 11:14 AM EST) Anatomical Region Laterality Modality Abdomen N/A Digital Radiogra phy Impressions 06/08/2019 8:06 AM EST Resolution of ileus Thank you for letting us participate in the care of this patient. For questions regarding this report, please contact the number below. ? Electronically signed by: Leanne Zamora [facility] ([phone]), at 06/08/2019 8:06 AM Narrative 06/08/2019 8:06 AM EST EXAMINATION: XR ABDOMEN FLAT AND UPRIGHT CLINICAL HISTORY: post-op ileus TECHNIQUE: AP upright and supine COMPARISON: 06/06/2019 FINDINGS: There is now a normal bowel gas and stool pattern with gas seen to the sigmoid colon and rectum. No significantly distended loops. Probe remains in the rectum. Minor LEFT lower lobe atelectasis, RIGHT lung base is clear. Epidural catheter remains at T11-12 Procedure Note Leanne Zamora MD - 06/08/2019 EXAMINATION: XR ABDOMEN FLAT AND UPRIGHT CLINICAL HISTORY: post-op ileus TECHNIQUE: AP upright and supine COMPARISON: 06/06/2019 FINDINGS: There is now a normal bowel gas and stool pattern with gas seen to thesigmoid colon and rectum. No significantly distended loops. Probe remains in therectum. Minor LEFT lower lobe atelectasis, RIGHT lung base is clear. Epiduralcatheter remains at T11-12 IMPRESSION Resolution of ileus Thank you for letting us participate in the care of this patient. Forquestions regarding this report, please contact the number below. Electronically signed by: Leanne Zamora [facility]([phone]), at 06/08/2019 8:06 AM Helio Duke MD IMG DX ORDERABLES * (ABNORMAL) Differential, Automated (06/07/2019 7:31 AM EST) Neutrophils % 82.1 % [facility] Neutr Abs (ANC) 7.65(H) 1.70 - 6.10 x10(3)/mc L [facility] Lymphocytes % 7.0 % [facility] Lymphocytes Abs 0.6(L) 0.9 - 3.2 x10(3)/mc L [facility] Monocytes % 8.2 % [facility] Monocyte Abs 0.8 0.3 - 0.9 x10(3)/mc L [facility] Eosinophils % 1.9 % [facility] Eosinophils Abs 0.2 0.0 - 0.4 x10(3)/mc L [facility] Basophils % 0.3 % [facility] Basophils Abs 0.0 0.0 - 0.1 x10(3)/mc L [facility] Immature Gran % 0.50 % [facility] Comment: Immature granulocytes(IG's)percentage and absolute count will include metamyelocytes, myelocytes, and promyelocytes. Blood smears from CBCs yielding IG's will be scanned manually for concordance. If this scan disagrees with the automated IG or if promyelocytes are noted, a manual differential will be performed. Melanie Gran Abs 0.05(H) 0.00 - 0.04 x10(3)/mc L [facility] Blood specimen (specimen) 06/07/2019 7:31 AM EST 06/07/2019 7:46 AM EST Narrative Resulting Agency Comment Spec In Lab Aliyah BUNDY HEMATOLOGY ORDERA BLES [facility] [place] [address] * (ABNORMAL) Hemogram (06/07/2019 7:31 AM EST) WBC 9.3 4.0 - 9.5 x10(3)/[facility] LABORATORY RBC 2.53(L) 4.58 - 5.54 x10(6)/[facility] LAB[facility] Hemoglobin 8.2(L) 13.7 - 16.5 gm/dL [facility] Hematocrit 25.8(L) 40.5 - 48.5 % [facility] MCV 102.0(H) 82.9 - 93.1 fL [facility] MCH 32.4(H) 27.5 - 32.1 pg [facility] MCHC 31.8(L) 32.0 - 35.7 gm/dL [facility] Platelets 139(L) 145 - 357 x10(3)/[facility] LABORATORY RDWSD 50.4(H) 36.0 - 45.0 [facility] LABORATORY RDWCV 13.5 11.4 - 13.8 % [facility] MPV 10.2 7.6 - 12.9 [facility] LABORATORY nRBC % Auto 0.0 % [facility] nRBC Abs Auto 0.000 0.000 - 0.000 x10(3)/mcL [facility] Blood specimen (specimen) 06/07/2019 7:31 AM EST 06/07/2019 7:46 AM EST Narrative Resulting Agency Comment Spec In Lab Aliyah BUNDY HEMATOLOGY ORDERA BLES [facility] [place] [address] * (ABNORMAL) BMP w/fasting Glucose (06/07/2019 7:31 AM EST) Glucose Fasting 88 65 - 99 mg/dL [facility] Comment: ?Fasting* Glucose Interpretive Criteria [...] of Diabetes Mellitus, Position Statement from the [employer]. ??Diabetes Care, Volume 33, Supplement 1, Apr 2009 BUN 29(H) 10 - 20 mg/dL [facility] Creatinine 1.30 0.80 - 1.50 mg/dL [facility] Sodium 144 135 - 145 mmol/L [facility] Potassium 4.2 3.5 - 5.0 mmol/L [facility] Comment: Please note: ??Patients with WBC >100,000 may have falsely elevated Potassium levels. ??For accurate Potassium quantification in these patients send serum separator tube (gold top) for subsequent determinations. ??Contact the Clinical Chemistry Laboratory if there are any questions. Chloride 110(H) 98 - 107 mmol/L [facility] CO2 24 22 - 31 mmol/L [facility] Anion Gap 10 5 - 15 mmol/L [facility] Calcium 8.0(L) 8.5 - 10.5 mg/dL [facility] Estimated GFR 54(L) >=60 mL/min/1. 73 m?? [facility] Comment: The eGFR was calculated using the CKD-EPI equation. As with all creatinine based estimates of kidney function, eGFR values calculated with the CKD-EPI equation are not accurate in patients with acute kidney failure, extremes of body mass or the acutely ill. [email or web address] [email or web address], [email or web address] eGFR 62 >=60 mL/min/1. 73 m?? [facility] Comment: The eGFR was calculated using the CKD-EPI equation. As with all creatinine based estimates of kidney function, eGFR values calculated with the CKD-EPI equation are not accurate in patients with acute kidney failure, extremes of body mass or the acutely ill. [email or web address] [email or web address], [email or web address] Blood specimen (specimen) 06/07/2019 7:31 AM EST 06/07/2019 7:46 AM EST Narrative Resulting Agency Comment Spec In Lab Helio Duke MD CHEMISTRY ORDERABLES [facility] [place] [address] * (ABNORMAL) Differential, Automated (06/06/2019 6:49 PM EST) Neutrophils % 82.0 % [facility] Neutr Abs (ANC) 8.04(H) 1.70 - 6.10 x10(3)/mc L [facility] Lymphocytes % 8.5 % [facility] Lymphocytes Abs 0.8(L) 0.9 - 3.2 x10(3)/mc L [facility] Monocytes % 7.3 % [facility] Monocyte Abs 0.7 0.3 - 0.9 x10(3)/mc L [facility] Eosinophils % 1.3 % [facility] Eosinophils Abs 0.1 0.0 - 0.4 x10(3)/[facility] LABORATORY Basophils % 0.3 % [facility] Basophils Abs 0.0 0.0 - 0.1 x10(3)/[facility] LABORATORY Immature Gran % 0.60 % [facility] Comment: Immature granulocytes(IG's)percentage and absolute count will include metamyelocytes, myelocytes, and promyelocytes. Blood smears from CBCs yielding IG's will be scanned manually for concordance. If this scan disagrees with the automated IG or if promyelocytes are noted, a manual differential will be performed. Melanie Gran Abs 0.06(H) 0.00 - 0.04 x10(3)/[facility] LABORATORY Blood specimen (specimen) 06/06/2019 6:49 PM EST 06/06/2019 7:11 PM EST Narrative Resulting Agency Comment Spec In Lab Pricilla Quiñones MD HEMATOLOGY ORDER DAVE [facility] [place] [address] * (ABNORMAL) Hemogram (06/06/2019 6:49 PM EST) WBC 9.8(H) 4.0 - 9.5 x10(3)/[facility] LABORATORY RBC 2.70(L) 4.58 - 5.54 x10(6)/[facility] Hemoglobin 8.8(L) 13.7 - 16.5 gm/dL [facility] Hematocrit 27.3(L) 40.5 - 48.5 % [facility] MCV 101.1(H) 82.9 - 93.1 fL [facility] MCH 32.6(H) 27.5 - 32.1 pg [facility] MCHC 32.2 32.0 - 35.7 gm/dL [facility] Platelets 155 145 - 357 x10(3)/[facility] LABORATORY RDWSD 50.1(H) 36.0 - 45.0 fL [facility] RDWCV 13.8 11.4 - 13.8 % [facility] MPV 10.3 7.6 - 12.9 fL [facility] nRBC % Auto 0.0 % [facility] nRBC Abs Auto 0.000 0.000 - 0.000 x10(3)/[facility] Blood specimen (specimen) 06/06/2019 6:49 PM EST 06/06/2019 7:11 PM EST Narrative Resulting Agency Comment Spec In Lab Pricilla Quiñones MD HEMATOLOGY ORDER DAVE [facility] [place] [address] * (ABNORMAL) BMP w/fasting Glucose (06/06/2019 6:49 PM EST) Glucose Fasting 94 65 - 99 mg/dL [facility] Comment: ?Fasting* Glucose Interpretive Criteria [...] of Diabetes Mellitus, Position Statement from the [employer]. ??Diabetes Care, Volume 33, Supplement 1, Apr 2009 BUN 27(H) 10 - 20 mg/dL [facility] Creatinine 1.49 0.80 - 1.50 mg/dL [facility] Sodium 137 135 - 145 mmol/L [facility] Potassium 4.2 3.5 - 5.0 mmol/L [facility] Comment: Please note: ??Patients with WBC >100,000 may have falsely elevated Potassium levels. ??For accurate Potassium quantification in these patients send serum separator tube (gold top) for subsequent determinations. ??Contact the Clinical Chemistry Laboratory if there are any questions. Chloride 104 98 - 107 mmol/L [facility] CO2 26 22 - 31 mmol/L [facility] Anion Gap 7 5 - 15 mmol/L [facility] Calcium 7.8(L) 8.5 - 10.5 mg/dL [facility] Estimated GFR 46(L) >=60 mL/min/1. 73 m?? [facility] Comment: The eGFR was calculated using the CKD-EPI equation. As with all creatinine based estimates of kidney function, eGFR values calculated with the CKD-EPI equation are not accurate in patients with acute kidney failure, extremes of body mass or the acutely ill. [email or web address] eGFR 53(L) >=60 mL/min/1. 73 m?? [facility] Comment: The eGFR was calculated using the CKD-EPI equation. As with all creatinine based estimates of kidney function, eGFR values calculated with the CKD-EPI equation are not accurate in patients with acute kidney failure, extremes of body mass or the acutely ill. [email or web address] Blood specimen (specimen) 06/06/2019 6:49 PM EST 06/06/2019 7:11 PM EST Narrative Resulting Agency Comment Spec In Lab Helio Duke MD CHEMISTRY ORDERABLES [facility] [place] [address] * XR Abdomen Flat & Upright (06/06/2019 2:49 PM EST) Anatomical Region Laterality Modality Abdomen N/A Digital Radiogra phy Impressions 06/06/2019 4:14 PM EST There is increased amount of air and stool seen in the colon including descending colon and in the rectum. The degree of gaseous distention of the small bowel has shown some mild improvement. Exam is otherwise unchanged. Thank you for letting us participate in the care of this patient. For questions regarding this report, please contact the number below. ? Narrative 06/06/2019 4:14 PM EST EXAMINATION: XR ABDOMEN FLAT AND UPRIGHT CLINICAL HISTORY: abdominal distension post op no BM day 2 status post aneurysm surgery. TECHNIQUE: Supine and upright views of the abdomen COMPARISON: 06/05/2019 abdominal series FINDINGS: Bilateral pleural effusions demonstrated. Left base airspace disease is again noted and may represent atelectasis (versus infiltrate). There is no free air under the hemidiaphragms. The degree of gaseous distention of small bowel has improved though some loops of distended small bowel persist. There are no abnormal dilated loops of bowel. There is also air and stool demonstrated within the ascending and descending colon. Midline skin mercy are demonstrated. The thoracic epidural catheter is unchanged. Midline and left-sided surgical clips are demonstrated in the abdomen and pelvis. Right lower quadrant surgical clips are also noted. Rectal temperature probe again noted. The visualized soft tissue planes are unremarkable. There are no abnormal soft tissue calcifications. There are no suspicious skeletal lesions. Procedure Note Ran Zambrano MD - 06/06/2019 EXAMINATION: XR ABDOMEN FLAT AND UPRIGHT CLINICAL HISTORY: abdominal distension post op no BM day 2 status postaneurysm surgery. TECHNIQUE: Supine and upright views of the abdomen COMPARISON: 06/05/2019 abdominal series FINDINGS: Bilateral pleural effusions demonstrated. Left base airspace disease isagain noted and may represent atelectasis (versus infiltrate). There is no freeair under the hemidiaphragms. The degree of gaseous distention of small bowel has improved though someloops of distended small bowel persist. There are no abnormal dilated loops ofbowel. There is also air and stool demonstrated within the ascending anddescending colon. Midline skin mercy are demonstrated. The thoracic epidural catheter is unchanged. Midline and left-sided surgical clips are demonstrated in theabdomen and pelvis. Right lower quadrant surgical clips are also noted. Rectal temperature probe again noted. The visualized soft tissue planes are unremarkable. There are no abnormalsoft tissue calcifications. There are no suspicious skeletal lesions. IMPRESSION There is increased amount of air and stool seen in the colon including descending colon and in the rectum. The degree of gaseous distention ofthe small bowel has shown some mild improvement. Exam is otherwiseunchanged. Thank you for letting us participate in the care of this patient. Forquestions regarding this report, please contact the number below. Electronically signed by: Ran Zambrano [facility]([phone]), at 06/06/2019 4:14 PM Helio Duke MD IMG DX ORDERABLES * XR Chest PA & Lateral (Generic) (06/06/2019 2:49 PM EST) Anatomical Region Laterality Modality Chest N/A Digital Radiogra phy Impressions 06/06/2019 2:54 PM EST Increased bibasilar atelectasis and pleural effusions. Thank you for letting us participate in the care of this patient. For questions regarding this report, please contact the number below. ? Electronically signed by: Berto Cunningham [facility] [facility] ([phone]), at 06/06/2019 2:54 PM Narrative 06/06/2019 2:54 PM EST EXAMINATION: XR CHEST PA AND LATERAL (GENERIC) CLINICAL HISTORY: AMS, desaturation TECHNIQUE: Upright PA and lateral chest COMPARISON: 06/03/2019 FINDINGS: The previously seen enteric tube is been removed. There are increased bibasilar hazy opacities most likely due to a combination of atelectasis and small pleural effusions. The upper lung zones remain clear. The cardiomediastinal silhouette is normal. No pneumothorax or significant bone abnormality is seen. Procedure Note Berto Cunningham MD - 06/06/2019 EXAMINATION: XR CHEST PA AND LATERAL (GENERIC) CLINICAL HISTORY: AMS, desaturation TECHNIQUE: Upright PA and lateral chest COMPARISON: 06/03/2019 FINDINGS: The previously seen enteric tube is been removed. There are increasedbibasilar hazy opacities most likely due to a combination of atelectasis and smallpleural effusions. The upper lung zones remain clear. The cardiomediastinalsilhouette is normal. No pneumothorax or significant bone abnormality is seen. IMPRESSION Increased bibasilar atelectasis and pleural effusions. Thank you for letting us participate in the care of this patient. Forquestions regarding this report, please contact the number below. Electronically signed by: Berto Cunningham [facility]([phone]), at 06/06/2019 2:54 PM Helio Duke MD IMG DX ORDERABLES * (ABNORMAL) Differential, Automated (06/06/2019 12:47 PM EST) Neutrophils % 84.5 % [facility] Neutr Abs (ANC) 9.35(H) 1.70 - 6.10 x10(3)/mc L [facility] Lymphocytes % 6.7 % [facility] Lymphocytes Abs 0.7(L) 0.9 - 3.2 x10(3)/mc L [facility] Monocytes % 7.0 % [facility] Monocyte Abs 0.8 0.3 - 0.9 x10(3)/mc L [facility] Eosinophils % 1.0 % [facility] Eosinophils Abs 0.1 0.0 - 0.4 x10(3)/[facility] Basophils % 0.3 % [facility] Basophils Abs 0.0 0.0 - 0.1 x10(3)/[facility] Immature Gran % 0.50 % [facility] Comment: Immature granulocytes(IG's)percentage and absolute count will include metamyelocytes, myelocytes, and promyelocytes. Blood smears from CBCs yielding IG's will be scanned manually for concordance. If this scan disagrees with the automated IG or if promyelocytes are noted, a manual differential will be performed. Melanie Gran Abs 0.06(H) 0.00 - 0.04 x10(3)/[facility] Blood specimen (specimen) 06/06/2019 12:47 PM EST 06/06/2019 12:58 PM EST Narrative Resulting Agency Comment Spec In Lab Pricilla Quiñones MD HEMATOLOGY ORDER DAVE [facility] [place] [address] * (ABNORMAL) Hemogram (06/06/2019 12:47 PM EST) WBC 11.1(H) 4.0 - 9.5 x10(3)/[facility] RBC 2.66(L) 4.58 - 5.54 x10(6)/[facility] Hemoglobin 8.8(L) 13.7 - 16.5 gm/dL [facility] Hematocrit 26.7(L) 40.5 - 48.5 % [facility] MCV 100.4(H) 82.9 - 93.1 fL [facility] MCH 33.1(H) 27.5 - 32.1 pg [facility] MCHC 33.0 32.0 - 35.7 gm/dL [facility] Platelets 139(L) 145 - 357 x10(3)/[facility] RDWSD 49.3(H) 36.0 - 45.0 [facility] RDWCV 13.5 11.4 - 13.8 % [facility] MPV 10.5 7.6 - 12.9 [facility] nRBC % Auto 0.0 % [facility] nRBC Abs Auto 0.000 0.000 - 0.000 x10(3)/[facility] Blood specimen (specimen) 06/06/2019 12:47 PM EST 06/06/2019 12:58 PM EST Narrative Resulting Agency Comment Spec In Lab Pricilla Quiñones MD HEMATOLOGY ORDER DAVE [facility] [place] [address] * (ABNORMAL) Basic Metabolic Panel (non-fasting) (06/06/2019 12:47 PM EST) Glucose Lvl 100 65 - 199 mg/dL [facility] Comment:Diabetes: >=200 mg/d L plus symptoms BUN 24(H) 10 - 20 mg/dL [facility] Creatinine 1.50 0.80 - 1.50 mg/dL [facility] Sodium 143 135 - 145 mmol/L [facility] Potassium 4.3 3.5 - 5.0 mmol/L [facility] Comment: Please note: ??Patients with WBC >100,000 may have falsely elevated Potassium levels. ??For accurate Potassium quantification in these patients send serum separator tube (gold top) for subsequent determinations. ??Contact the Clinical Chemistry Laboratory if there are any questions. Chloride 111(H) 98 - 107 mmol/L [facility] CO2 25 22 - 31 mmol/L [facility] Anion Gap 7 5 - 15 mmol/L [facility] Calcium 7.8(L) 8.5 - 10.5 mg/dL [facility] Estimated GFR 45(L) >=60 mL/min/1. 73 m?? [facility] Comment: The eGFR was calculated using the CKD-EPI equation. As with all creatinine based estimates of kidney function, eGFR values calculated with the CKD-EPI equation are not accurate in patients with acute kidney failure, extremes of body mass or the acutely ill. [email or web address] [email or web address] [email or web address] eGFR 52(L) >=60 mL/min/1. 73 m?? [facility] Comment: The eGFR was calculated using the CKD-EPI equation. As with all creatinine based estimates of kidney function, eGFR values calculated with the CKD-EPI equation are not accurate in patients with acute kidney failure, extremes of body mass or the acutely ill. [email or web address] [email or web address] [email or web address] Blood specimen (specimen) 06/06/2019 12:47 PM EST 06/06/2019 1:00 PM EST Narrative Resulting Agency Comment Spec In Lab Helio Duke MD CHEMISTRY ORDERABLES [facility] [place] [address] * (ABNORMAL) Differential, Automated (06/06/2019 4:25 AM EST) Neutrophils % 85.6 % [facility] Neutr Abs (ANC) 8.19(H) 1.70 - 6.10 x10(3)/mc L [facility] Lymphocytes % 5.9 % [facility] Lymphocytes Abs 0.6(L) 0.9 - 3.2 x10(3)/mc L [facility] Monocytes % 6.7 % [facility] Monocyte Abs 0.6 0.3 - 0.9 x10(3)/mc L [facility] Eosinophils % 0.8 % [facility] Eosinophils Abs 0.1 0.0 - 0.4 x10(3)/mc L [facility] Basophils % 0.2 % [facility] Basophils Abs 0.0 0.0 - 0.1 x10(3)/mc L [facility] Immature Gran % 0.80 % [facility] Comment: Immature granulocytes(IG's)percentage and absolute count will include metamyelocytes, myelocytes, and promyelocytes. Blood smears from CBCs yielding IG's will be scanned manually for concordance. If this scan disagrees with the automated IG or if promyelocytes are noted, a manual differential will be performed. Melanie Gran Abs 0.08(H) 0.00 - 0.04 x10(3)/ L [facility] Blood specimen (specimen) 06/06/2019 4:25 AM EST 06/06/2019 4:32 AM EST Narrative Resulting Agency Comment Spec In Lab Pricilla Quiñones MD HEMATOLOGY ORDER DAVE Performing Organization Address City/State/[facility] Co de Phone Number [facility] [place] [address] * (ABNORMAL) Hemogram (06/06/2019 4:25 AM EST) WBC 9.6(H) 4.0 - 9.5 x10(3)/[facility] RBC 2.72(L) 4.58 - 5.54 x10(6)/[facility] Hemoglobin 8.9(L) 13.7 - 16.5 gm/dL [facility] Hematocrit 27.8(L) 40.5 - 48.5 % [facility] MCV 102.2(H) 82.9 - 93.1 fL [facility] MCH 32.7(H) 27.5 - 32.1 pg [facility] MCHC 32.0 32.0 - 35.7 gm/dL [facility] Platelets 114(L) 145 - 357 x10(3)/[facility] RDWSD 50.2(H) 36.0 - 45.0 fL [facility] RDWCV 13.4 11.4 - 13.8 % [facility] MPV 9.8 7.6 - 12.9 fL [facility] nRBC % Auto 0.0 % [facility] nRBC Abs Auto 0.000 0.000 - 0.000 x10(3)/mcL [facility] Blood specimen (specimen) 06/06/2019 4:25 AM EST 06/06/2019 4:32 AM EST Narrative Resulting Agency Comment Spec In Lab Pricilla Quiñones MD HEMATOLOGY ORDER DAVE Performing Organization Address City/State/[facility] Co de Phone Number [facility] [place] [address] * (ABNORMAL) BMP w/fasting Glucose (06/06/2019 4:25 AM EST) Glucose Fasting 93 65 - 99 mg/dL [facility] Comment: ?Fasting* Glucose Interpretive Criteria [...] of Diabetes Mellitus, Position Statement from the [employer]. ??Diabetes Care, Volume 33, Supplement 1, Apr 2009 BUN 22(H) 10 - 20 mg/dL [facility] Creatinine 1.33 0.80 - 1.50 mg/dL [facility] Sodium 143 135 - 145 mmol/L [facility] Potassium 4.2 3.5 - 5.0 mmol/L [facility] Comment: Please note: ??Patients with WBC >100,000 may have falsely elevated Potassium levels. ??For accurate Potassium quantification in these patients send serum separator tube (gold top) for subsequent determinations. ??Contact the Clinical Chemistry Laboratory if there are any questions. Chloride 109(H) 98 - 107 mmol/L [facility] CO2 23 22 - 31 mmol/L [facility] Anion Gap 11 5 - 15 mmol/L [facility] Calcium 7.9(L) 8.5 - 10.5 mg/dL [facility] Estimated GFR 52(L) >=60 mL/min/1. 73 m?? [facility] Comment: The eGFR was calculated using the CKD-EPI equation. As with all creatinine based estimates of kidney function, eGFR values calculated with the CKD-EPI equation are not accurate in patients with acute kidney failure, extremes of body mass or the acutely ill. [email or web address] [email or web address] [email or web address] eGFR 61 >=60 mL/min/1. 73 m?? [facility] Comment: The eGFR was calculated using the CKD-EPI equation. As with all creatinine based estimates of kidney function, eGFR values calculated with the CKD-EPI equation are not accurate in patients with acute kidney failure, extremes of body mass or the acutely ill. [email or web address] [email or web address] [email or web address] Blood specimen (specimen) 06/06/2019 4:25 AM EST 06/06/2019 4:32 AM EST Narrative Resulting Agency Comment Spec In Lab Helio Duke MD CHEMISTRY ORDERABLES [facility] [place] [address] * EKG 12 Lead (06/06/2019 3:57 AM EST) Ventricular rate 138 BPM MUSE SYSTEM QRS Duration 140 ms MUSE SYSTEM Q-T Interval 348 ms MUSE SYSTEM QTC Calculated (Bezet) 527 ms MUSE SYSTEM Calculated R Fisher 34 degrees MUSE SYSTEM Calculated T Fisher -167 degrees MUSE SYSTEM INTERPRETATION Atrial fibrillation with rapid ventricular response Left bundle branch block Abnormal ECG When compared with ECG of 04-JUN-2019 20:09, Atrial fibrillation has replaced Sinus rhythm Confirmed by MD EVELIN, MANDIE ([id number]) on 06/06/2019 8:47:17 AM MUSE SYSTEM 06/06/2019 3:57 AM EST 06/06/2019 8:47 AM EST Helio Duke MD ECG ORDERABLES MUSE SYSTEM * (ABNORMAL) Differential, Automated (06/05/2019 6:54 PM EST) Neutrophils % 88.1 % [facility] Neutr Abs (ANC) 10.75(H) 1.70 - 6.10 x10(3)/ L [facility] Lymphocytes % 4.0 % [facility] Lymphocytes Abs 0.5(L) 0.9 - 3.2 x10(3)/[facility] Monocytes % 6.2 % [facility] Monocyte Abs 0.8 0.3 - 0.9 x10(3)/[facility] Eosinophils % 0.5 % [facility] Eosinophils Abs 0.1 0.0 - 0.4 x10(3)/[facility] Basophils % 0.1 % [facility] Basophils Abs 0.0 0.0 - 0.1 x10(3)/[facility] Immature Gran % 1.10 % [facility] Comment: Immature granulocytes(IG's)percentage and absolute count will include metamyelocytes, myelocytes, and promyelocytes. Blood smears from CBCs yielding IG's will be scanned manually for concordance. If this scan disagrees with the automated IG or if promyelocytes are noted, a manual differential will be performed. Melanie Gran Abs 0.14(H) 0.00 - 0.04 x10(3)/ L [facility] Blood specimen (specimen) 06/05/2019 6:54 PM EST 06/05/2019 7:00 PM EST Narrative Resulting Agency Comment Spec In Lab Pricilla Quiñones MD HEMATOLOGY ORDER DAVE [facility] [place] [address] * (ABNORMAL) Hemogram (06/05/2019 6:54 PM EST) WBC 12.2(H) 4.0 - 9.5 x10(3)/[facility] RBC 3.03(L) 4.58 - 5.54 x10(6)/[facility] Hemoglobin 9.8(L) 13.7 - 16.5 gm/dL [facility] Hematocrit 29.9(L) 40.5 - 48.5 % [facility] MCV 98.7(H) 82.9 - 93.1 fL [facility] MCH 32.3(H) 27.5 - 32.1 pg [facility] MCHC 32.8 32.0 - 35.7 gm/dL [facility] Platelets 118(L) 145 - 357 x10(3)/[facility] RDWSD 48.8(H) 36.0 - 45.0 [facility] RDWCV 13.5 11.4 - 13.8 % [facility] MPV 10.4 7.6 - 12.9 [facility] nRBC % Auto 0.0 % [facility] nRBC Abs Auto 0.000 0.000 - 0.000 x10(3)/[facility] Blood specimen (specimen) 06/05/2019 6:54 PM EST 06/05/2019 7:00 PM EST Narrative Resulting Agency Comment Spec In Lab Pricilla Quiñones MD HEMATOLOGY ORDER DAVE [facility] [place] [address] * (ABNORMAL) BMP w/fasting Glucose (06/05/2019 6:54 PM EST) [facility] Glucose Fasting 103(H) 65 - 99 mg/dL [facility] Comment: ?Fasting* Glucose Interpretive Criteria [...] of Diabetes Mellitus, Position Statement from the [employer]. ??Diabetes Care, Volume 33, Supplement 1, Apr 2009 BUN 26(H) 10 - 20 mg/dL [facility] Creatinine 1.62(H) 0.80 - 1.50 mg/dL [facility] Sodium 142 135 - 145 mmol/L [facility] Potassium 4.4 3.5 - 5.0 mmol/L [facility] Comment: Please note: ??Patients with WBC >100,000 may have falsely elevated Potassium levels. ??For accurate Potassium quantification in these patients send serum separator tube (gold top) for subsequent determinations. ??Contact the Clinical Chemistry Laboratory if there are any questions. Chloride 111(H) 98 - 107 mmol/L [facility] CO2 22 22 - 31 mmol/L [facility] Anion Gap 9 5 - 15 mmol/L [facility] Calcium 8.1(L) 8.5 - 10.5 mg/dL [facility] Estimated GFR 41(L) >=60 mL/min/1. 73 m?? [facility] Comment: The eGFR was calculated using the CKD-EPI equation. As with all creatinine based estimates of kidney function, eGFR values calculated with the CKD-EPI equation are not accurate in patients with acute kidney failure, extremes of body mass or the acutely ill. [email or web address] eGFR 48(L) >=60 mL/min/1. 73 m?? [facility] Comment: The eGFR was calculated using the CKD-EPI equation. As with all creatinine based estimates of kidney function, eGFR values calculated with the CKD-EPI equation are not accurate in patients with acute kidney failure, extremes of body mass or the acutely ill. [email or web address] [email or web address] [email or web address] Blood specimen (specimen) 06/05/2019 6:54 PM EST 06/05/2019 7:00 PM EST Narrative Resulting Agency Comment Spec In Lab Helio Duke MD CHEMISTRY ORDERABLES [facility] [place] [address] * XR Abdomen Flat & Upright (06/05/2019 1:04 PM EST) Anatomical Region Laterality Modality Abdomen N/A Digital Radiogra phy Impressions 06/05/2019 1:22 PM EST No free air. Suspect LEFT lower lobe airspace infiltrate. Air-filled stacked loops of small bowel within the mid abdomen may represent a partial small bowel obstruction. There is stool and gas within nondilated loops of RIGHT colon. Thank you for letting us participate in the care of this patient. For questions regarding this report, please contact the number below. ? Narrative 06/05/2019 1:22 PM EST EXAMINATION: XR ABDOMEN FLAT AND UPRIGHT CLINICAL HISTORY: 74-year-old male status post vascular surgery procedure the abdominal pain, distension, NGT and no return to bowel function post op TECHNIQUE: AP supine and upright views of the abdomen. COMPARISON: None FINDINGS: Lower chest: There are bilateral pleural effusions and dense LEFT retrocardiac opacity concerning for airspace infiltrate and some degree of atelectasis. Line enteric tube tip projected in the antral portion of the stomach. Thoracic epidural catheter with tip seen projected over T8. Midline laparotomy skin mercy and multiple sutures at the level of paravertebral margin L1-L2. Rectal temperature probe is in place. There is no evidence of obstruction. No free intraperitoneal air. Bowel gas pattern. Air-filled loops of stacked small bowel in the mid abdomen. Small amount of gas and formed fecal material within the RIGHT colon. Dense fecal material within the rectum. Procedure Note Yeny Garcia MD - 06/05/2019 EXAMINATION: XR ABDOMEN FLAT AND UPRIGHT CLINICAL HISTORY: 74-year-old male status post vascular surgery procedurethe abdominal pain, distension, NGT and no return to bowel function post op TECHNIQUE: AP supine and upright views of the abdomen. COMPARISON: None FINDINGS: Lower chest: There are bilateral pleural effusions and dense LEFTretrocardiac opacity concerning for airspace infiltrate and some degree of atelectasis.Line enteric tube tip projected in the antral portion of the stomach.Thoracic epidural catheter with tip seen projected over T8. Midline laparotomyskin mercy and multiple sutures at the level of paravertebral margin L1-L2.Rectal temperature probe is in place. There is no evidence of obstruction. No free intraperitoneal air. Bowel gas pattern. Air-filled loops of stacked small bowel in the midabdomen. Small amount of gas and formed fecal material within the RIGHT colon.Dense fecal material within the rectum. IMPRESSION No free air. Suspect LEFT lower lobe airspace infiltrate. Air-filled stacked loops of small bowel within the mid abdomen mayrepresent a partial small bowel obstruction. There is stool and gas within nondilatedloops of RIGHT colon. Thank you for letting us participate in the care of this patient. Forquestions regarding this report, please contact the number below. Electronically signed by: Yeny Garcia MD, [facility]([phone]), at 06/05/2019 1:22 PM Helio Duke MD IMG DX ORDERABLES * (ABNORMAL) Differential, Automated (06/05/2019 10:21 AM EST) Neutrophils % 88.5 % [facility] Neutr Abs (ANC) 12.01(H) 1.70 - 6.10 x10(3)/ L [facility] Lymphocytes % 3.8 % [facility] Lymphocytes Abs 0.5(L) 0.9 - 3.2 x10(3)/[facility] Monocytes % 6.6 % [facility] Monocyte Abs 0.9 0.3 - 0.9 x10(3)/[facility] Eosinophils % 0.2 % [facility] Eosinophils Abs 0.0 0.0 - 0.4 x10(3)/[facility] Basophils % 0.2 % [facility] Basophils Abs 0.0 0.0 - 0.1 x10(3)/[facility] Immature Gran % 0.70 % [facility] Comment: Immature granulocytes(IG's)percentage and absolute count will include metamyelocytes, myelocytes, and promyelocytes. Blood smears from CBCs yielding IG's will be scanned manually for concordance. If this scan disagrees with the automated IG or if promyelocytes are noted, a manual differential will be performed. Melanie Gran Abs 0.10(H) 0.00 - 0.04 x10(3)/ L [facility] Blood specimen (specimen) 06/05/2019 10:21 AM EST 06/05/2019 10:27 AM EST Narrative Resulting Agency Comment Spec In Lab Pricilla Quiñones MD HEMATOLOGY ORDER DAVE [facility] [place] [address] * (ABNORMAL) Hemogram (06/05/2019 10:21 AM EST) WBC 13.6(H) 4.0 - 9.5 x10(3)/[facility] RBC 3.12(L) 4.58 - 5.54 x10(6)/[facility] Hemoglobin 10.1(L) 13.7 - 16.5 gm/dL [facility] Hematocrit 30.8(L) 40.5 - 48.5 % [facility] MCV 98.7(H) 82.9 - 93.1 fL [facility] MCH 32.4(H) 27.5 - 32.1 pg [facility] MCHC 32.8 32.0 - 35.7 gm/dL [facility] Platelets 107(L) 145 - 357 x10(3)/[facility] RDWSD 49.3(H) 36.0 - 45.0 [facility] RDWCV 13.5 11.4 - 13.8 % [facility] MPV 10.5 7.6 - 12.9 [facility] nRBC % Auto 0.0 % [facility] nRBC Abs Auto 0.000 0.000 - 0.000 x10(3)/[facility] Blood specimen (specimen) 06/05/2019 10:21 AM EST 06/05/2019 10:27 AM EST Narrative Resulting Agency Comment Spec In Lab Pricilla Quiñones MD HEMATOLOGY ORDER DAVE [facility] [place] [address] * (ABNORMAL) BMP w/fasting Glucose (06/05/2019 10:21 AM EST) Glucose Fasting 109(H) 65 - 99 mg/dL [facility] Comment: ?Fasting* Glucose Interpretive Criteria [...] of Diabetes Mellitus, Position Statement from the [employer]. ??Diabetes Care, Volume 33, Supplement 1, Apr 2009 BUN 28(H) 10 - 20 mg/dL [facility] Creatinine 1.70(H) 0.80 - 1.50 mg/dL [facility] Sodium 142 135 - 145 mmol/L [facility] Potassium 4.8 3.5 - 5.0 mmol/L [facility] Comment: Please note: ??Patients with WBC >100,000 may have falsely elevated Potassium levels. ??For accurate Potassium quantification in these patients send serum separator tube (gold top) for subsequent determinations. ??Contact the Clinical Chemistry Laboratory if there are any questions. Chloride 112(H) 98 - 107 mmol/L [facility] CO2 24 22 - 31 mmol/L [facility] Anion Gap 6 5 - 15 mmol/L [facility] Calcium 7.8(L) 8.5 - 10.5 mg/dL [facility] Estimated GFR 39(L) >=60 mL/min/1. 73 m?? [facility] Comment: The eGFR was calculated using the CKD-EPI equation. As with all creatinine based estimates of kidney function, eGFR values calculated with the CKD-EPI equation are not accurate in patients with acute kidney failure, extremes of body mass or the acutely ill. [email or web address] eGFR 45(L) >=60 mL/min/1. 73 m?? [facility] Comment: The eGFR was calculated using the CKD-EPI equation. As with all creatinine based estimates of kidney function, eGFR values calculated with the CKD-EPI equation are not accurate in patients with acute kidney failure, extremes of body mass or the acutely ill. [email or web address] Blood specimen (specimen) 06/05/2019 10:21 AM EST 06/05/2019 10:27 AM EST Narrative Resulting Agency Comment Spec In Lab Helio Duke MD CHEMISTRY ORDERABLES Performing Organization Address [facility] Co de Phone Number [facility] [place] [address] * POCT Glucose (06/05/2019 12:57 AM EST) POC Glucose 101 65 - 199 mg/dL [facility] Comment: Supplemental ranges: <140 mg/dL before meals <180 mg/dL all other times of the day Blood specimen (specimen) 06/05/2019 12:57 AM EST 06/05/2019 12:57 AM EST Helio Duke MD POINT OF CARE TEST O RDERABLES Performing Organization Address [facility] Phone Number [facility] [place] [address] * Magnesium (06/04/2019 11:07 PM EST) Magnesium 0.70 0.69 - 1.07 mmol/L [facility] Blood specimen (specimen) 06/04/2019 11:07 PM EST 06/04/2019 11:12 PM EST Narrative Resulting Agency Comment Spec In Lab Helio Duke MD CHEMISTRY ORDERABLES Performing Organization Address [facility] de Phone Number [facility] [place] [address] * (ABNORMAL) Basic Metabolic Panel (non-fasting) (06/04/2019 11:07 PM EST) Glucose Lvl 102 65 - 199 mg/dL [facility] Comment:Diabetes: >=200 mg/d L plus symptoms BUN 30(H) 10 - 20 mg/dL [facility] Creatinine 1.87(H) 0.80 - 1.50 mg/dL [facility] Sodium 142 135 - 145 mmol/L [facility] Potassium 4.6 3.5 - 5.0 mmol/L [facility] Comment: Please note: ??Patients with WBC >100,000 may have falsely elevated Potassium levels. ??For accurate Potassium quantification in these patients send serum separator tube (gold top) for subsequent determinations. ??Contact the Clinical Chemistry Laboratory if there are any questions. Chloride 111(H) 98 - 107 mmol/L [facility] CO2 22 22 - 31 mmol/L [facility] Anion Gap 9 5 - 15 mmol/L [facility] Calcium 8.0(L) 8.5 - 10.5 mg/dL [facility] Estimated GFR 35(L) >=60 mL/min/1. 73 m?? [facility] Comment: The eGFR was calculated using the CKD-EPI equation. As with all creatinine based estimates of kidney function, eGFR values calculated with the CKD-EPI equation are not accurate in patients with acute kidney failure, extremes of body mass or the acutely ill. [email or web address] [email or web address] eGFR 40(L) >=60 mL/min/1. 73 m?? [facility] Comment: The eGFR was calculated using the CKD-EPI equation. As with all creatinine based estimates of kidney function, eGFR values calculated with the CKD-EPI equation are not accurate in patients with acute kidney failure, extremes of body mass or the acutely ill. [email or web address] Blood specimen (specimen) 06/04/2019 11:07 PM EST 06/04/2019 11:12 PM EST Narrative Resulting Agency Comment Spec In Lab Helio Duke MD CHEMISTRY ORDERABLES [facility] [place] [address] * POCT Glucose (06/04/2019 11:05 PM EST) POC Glucose 87 65 - 199 mg/dL [facility] Comment: Supplemental ranges: <140 mg/dL before meals <180 mg/dL all other times of the day Blood specimen (specimen) 06/04/2019 11:05 PM EST 06/04/2019 11:05 PM EST Helio Duke MD POINT OF CARE TEST O SUZI Performing Organization Address City/[facility]/ZIP Co de Phone Number [facility] [place] [address] * POCT Glucose (06/04/2019 9:05 PM EST) Pathologist [facility] POC Glucose 122 65 - 199 mg/dL [facility] Comment: Supplemental ranges: <140 mg/dL before meals <180 mg/dL all other times of the day Blood specimen (specimen) 06/04/2019 9:05 PM EST 06/04/2019 9:05 PM EST Helio Duke MD POINT OF CARE TEST O SUZI Performing Organization Address City/[facility]/ZIP Co de Phone Number [facility] [place] [address] * EKG 12 Lead (06/04/2019 8:09 PM EST) Ventricular rate 101 BPM MUSE SYSTEM Atrial Rate 101 BPM MUSE SYSTEM P-R Interval 182 ms MUSE SYSTEM QRS Duration 154 ms MUSE SYSTEM Q-T Interval 382 ms MUSE SYSTEM QTC Calculated (Bezet) 495 ms MUSE SYSTEM Calculated P Fisher 43 degrees MUSE SYSTEM Calculated R Fisher 10 degrees MUSE SYSTEM Calculated T Fisher 171 degrees MUSE SYSTEM INTERPRETATION Sinus tachycardia Left bundle branch block Abnormal ECG When compared with ECG of 04-JUN-2019 18:31, No significant change was found Confirmed by MD WATERS ARMIN ([id number]) on 06/05/2019 8:01:39 AM MUSE SYSTEM 06/04/2019 8:09 PM EST 06/05/2019 8:01 AM EST Helio Duke MD ECG ORDERABLES Performing Organization Address [facility] de Phone Number MUSE SYSTEM * POCT Glucose (06/04/2019 6:36 PM EST) POC Glucose 116 65 - 199 mg/dL [facility] Comment: Supplemental ranges: <140 mg/dL before meals <180 mg/dL all other times of the day Blood specimen (specimen) 06/04/2019 6:36 PM EST 06/04/2019 6:36 PM EST Helio Duke MD POINT OF CARE TEST O RDERABLES Performing Organization Address [facility] Co de Phone Number [facility] [place] [address] * EKG 12 Lead (06/04/2019 6:31 PM EST) Ventricular rate 100 BPM MUSE SYSTEM Atrial Rate 100 BPM MUSE SYSTEM P-R Interval 172 ms MUSE SYSTEM QRS Duration 148 ms MUSE SYSTEM Q-T Interval 388 ms MUSE SYSTEM QTC Calculated (Bezet) 500 ms MUSE SYSTEM Calculated P Fisher 29 degrees MUSE SYSTEM Calculated R Fisher 23 degrees MUSE SYSTEM Calculated T Fisher -29 degrees MUSE SYSTEM INTERPRETATION Normal sinus rhythm Left bundle branch block Abnormal ECG When compared with ECG of 03-JUN-2019 17:12, No significant change was found Confirmed by MD EVELIN, MANDIE ([id number]) on 06/05/2019 8:01:28 AM MUSE SYSTEM 06/04/2019 6:31 PM EST 06/05/2019 8:01 AM EST Helio Duke MD ECG ORDERABLES Performing Organization Address [facility] Co de Phone Number MUSE SYSTEM * Electrolytes, urine, random (06/04/2019 6:19 PM EST) U Sodium 82 mmol/L [facility] U Potassium 58 mmol/L [facility] U Chloride 85 mmol/L [facility] Urine specimen (specimen) 06/04/2019 6:19 PM EST 06/04/2019 8:54 PM EST Narrative Resulting Agency Comment Spec In Lab Helio Duke MD URINE ORDERABLES Performing Organization Address City/[facility]/ZIP Co de Phone Number [facility] [place] [address] * Creatinine, urine, random (06/04/2019 6:19 PM EST) U Creatinine 110 mg/dL [facility] Urine specimen (specimen) 06/04/2019 6:19 PM EST 06/04/2019 8:54 PM EST Narrative Resulting Agency Comment Spec In Lab Helio Duke MD URINE ORDERABLES Performing Organization Address City/[facility] Co de Phone Number [facility] [place] [address] * (ABNORMAL) Differential, Automated (06/04/2019 5:56 PM EST) Neutrophils % 88.3 % [facility] Neutr Abs (ANC) 14.26(H) 1.70 - 6.10 x10(3)/mc L [facility] Lymphocytes % 4.6 % [facility] Lymphocytes Abs 0.7(L) 0.9 - 3.2 x10(3)/mc L [facility] Monocytes % 6.4 % [facility] Monocyte Abs 1.0(H) 0.3 - 0.9 x10(3)/mc L [facility] Eosinophils % 0.0 % [facility] Eosinophils Abs 0.0 0.0 - 0.4 x10(3)/mc L [facility] Basophils % 0.1 % [facility] Basophils Abs 0.0 0.0 - 0.1 x10(3)/mc L [facility] Immature Gran % 0.60 % [facility] Comment: Immature granulocytes(IG's)percentage and absolute count will include metamyelocytes, myelocytes, and promyelocytes. Blood smears from CBCs yielding IG's will be scanned manually for concordance. If this scan disagrees with the automated IG or if promyelocytes are noted, a manual differential will be performed. Melanie Gran Abs 0.09(H) 0.00 - 0.04 x10(3)/ L [facility] Blood specimen (specimen) 06/04/2019 5:56 PM EST 06/04/2019 6:16 PM EST Narrative Resulting Agency Comment Spec In Lab Pricilla Quiñones MD HEMATOLOGY ORDER DAVE [facility] [place] [address] * (ABNORMAL) Hemogram (06/04/2019 5:56 PM EST) WBC 16.2(H) 4.0 - 9.5 x10(3)/[facility] LABORAT[facility] RBC 3.66(L) 4.58 - 5.54 x10(6)/[facility] Hemoglobin 11.8(L) 13.7 - 16.5 gm/dL [facility] Hematocrit 36.4(L) 40.5 - 48.5 % [facility] MCV 99.5(H) 82.9 - 93.1 fL [facility] MCH 32.2(H) 27.5 - 32.1 pg [facility] MCHC 32.4 32.0 - 35.7 gm/dL [facility] Platelets 118(L) 145 - 357 x10(3)/[facility] LABORATORY RDWSD 48.3(H) 36.0 - 45.0 [facility] RDWCV 13.3 11.4 - 13.8 % [facility] MPV 10.4 7.6 - 12.9 [facility] LABORATORY nRBC % Auto 0.0 % [facility] nRBC Abs Auto 0.000 0.000 - 0.000 x10(3)/mcL [facility] Blood specimen (specimen) 06/04/2019 5:56 PM EST 06/04/2019 6:16 PM EST Narrative Resulting Agency Comment Spec In Lab Pricilla Quiñones MD HEMATOLOGY ORDER DAVE Performing Organization Address City/State/[facility] Co de Phone Number [facility] [place] [address] * (ABNORMAL) BMP w/fasting Glucose (06/04/2019 5:56 PM EST) Glucose Fasting 121(H) 65 - 99 mg/dL [facility] Comment: ?Fasting* Glucose Interpretive Criteria [...] of Diabetes Mellitus, Position Statement from the [employer]. ??Diabetes Care, Volume 33, Supplement 1, Apr 2009 BUN 34(H) 10 - 20 mg/dL [facility] Creatinine 2.00(H) 0.80 - 1.50 mg/dL [facility] Sodium 142 135 - 145 mmol/L [facility] Potassium 5.0 3.5 - 5.0 mmol/L [facility] Comment: Please note: ??Patients with WBC >100,000 may have falsely elevated Potassium levels. ??For accurate Potassium quantification in these patients send serum separator tube (gold top) for subsequent determinations. ??Contact the Clinical Chemistry Laboratory if there are any questions. Chloride 111(H) 98 - 107 mmol/L [facility] CO2 22 22 - 31 mmol/L [facility] Anion Gap 9 5 - 15 mmol/L [facility] Calcium 8.0(L) 8.5 - 10.5 mg/dL [facility] Estimated GFR 32(L) >=60 mL/min/1. 73 m?? [facility] Comment: The eGFR was calculated using the CKD-EPI equation. As with all creatinine based estimates of kidney function, eGFR values calculated with the CKD-EPI equation are not accurate in patients with acute kidney failure, extremes of body mass or the acutely ill. [email or web address] [place] [email or web address] eGFR 37(L) >=60 mL/min/1. 73 m?? [facility] Comment: The eGFR was calculated using the CKD-EPI equation. As with all creatinine based estimates of kidney function, eGFR values calculated with the CKD-EPI equation are not accurate in patients with acute kidney failure, extremes of body mass or the acutely ill. [email or web address] Blood specimen (specimen) 06/04/2019 5:56 PM EST 06/04/2019 6:16 PM EST Narrative Resulting Agency Comment Spec In Lab Helio Duke MD CHEMISTRY ORDERABLES Performing Organization Address [facility]/State/[facility] Co de Phone Number [facility] [place] [address] * (ABNORMAL) BMP w/fasting Glucose (06/04/2019 10:13 AM EST) Glucose Fasting 121(H) 65 - 99 mg/dL [facility] Comment: ?Fasting* Glucose Interpretive Criteria [...] of Diabetes Mellitus, Position Statement from the [employer]. ??Diabetes Care, Volume 33, Supplement 1, Apr 2009 BUN 31(H) 10 - 20 mg/dL [facility] Comment:result rechecked-es Creatinine 2.10(H) 0.80 - 1.50 mg/dL [facility] Sodium 141 135 - 145 mmol/L [facility] Potassium 5.3(H) 3.5 - 5.0 mmol/L [facility] Comment: Please note: ??Patients with WBC >100,000 may have falsely elevated Potassium levels. ??For accurate Potassium quantification in these patients send serum separator tube (gold top) for subsequent determinations. ??Contact the Clinical Chemistry Laboratory if there are any questions. Chloride 110(H) 98 - 107 mmol/L [facility] CO2 20(L) 22 - 31 mmol/L [facility] Anion Gap 11 5 - 15 mmol/L [facility] Calcium 8.2(L) 8.5 - 10.5 mg/dL [facility] Estimated GFR 30(L) >=60 mL/min/1. 73 m?? [facility] Comment: The eGFR was calculated using the CKD-EPI equation. As with all creatinine based estimates of kidney function, eGFR values calculated with the CKD-EPI equation are not accurate in patients with acute kidney failure, extremes of body mass or the acutely ill. [email or web address] [place] [email or web address] eGFR 35(L) >=60 mL/min/1. 73 m?? [facility] Comment: The eGFR was calculated using the CKD-EPI equation. As with all creatinine based estimates of kidney function, eGFR values calculated with the CKD-EPI equation are not accurate in patients with acute kidney failure, extremes of body mass or the acutely ill. [email or web address] [place] [email or web address] Blood specimen (specimen) 06/04/2019 10:13 AM EST 06/04/2019 10:32 AM EST Narrative Resulting Agency Comment Spec In Lab Helio Duke MD CHEMISTRY ORDERABLES Performing Organization Address [facility] Co de Phone Number [facility] [place] [address] * (ABNORMAL) Hemogram (06/04/2019 10:13 AM EST) WBC 16.0(H) 4.0 - 9.5 x10(3)/[facility] LABORATORY RBC 3.79(L) 4.58 - 5.54 x10(6)/[facility] LAB[facility]ATORY Hemoglobin 12.6(L) 13.7 - 16.5 gm/dL [facility] Hematocrit 37.9(L) 40.5 - 48.5 % [facility] MCV 100.0(H) 82.9 - 93.1 fL [facility] MCH 33.2(H) 27.5 - 32.1 pg [facility] MCHC 33.2 32.0 - 35.7 gm/dL [facility] Platelets 120(L) 145 - 357 x10(3)/[facility] LABORATORY RDWSD 49.2(H) 36.0 - 45.0 [facility] LABORATORY RDWCV 13.3 11.4 - 13.8 % [facility] MPV 10.3 7.6 - 12.9 [facility] LABORATORY nRBC % Auto 0.0 % [facility] nRBC Abs Auto 0.000 0.000 - 0.000 x10(3)/[facility] LAB[facility]ATORY Blood specimen (specimen) 06/04/2019 10:13 AM EST 06/04/2019 10:32 AM EST Narrative Resulting Agency Comment Spec In Lab Helio Duke MD HEMATOLOGY ORDERABLE S [facility] [place] [address] * Lactate, whole blood, send to lab ([facility] [place] [place]) (06/03/2019 8:40 PM EST) [facility] Lactate WB 1.9 0.5 - 2.2 mmol/L [facility] Blood specimen (specimen) 06/03/2019 8:40 PM EST 06/03/2019 8:54 PM EST Narrative Resulting Agency Comment Spec In Lab Helio Duke MD CHEMISTRY ORDERABLES [facility] [place] [address] * (ABNORMAL) Hemogram (06/03/2019 8:40 PM EST) [facility] WBC 16.5(H) 4.0 - 9.5 x10(3)/[facility] LABORATORY RBC 3.97(L) 4.58 - 5.54 x10(6)/[facility] LABORATORY Hemoglobin 13.0(L) 13.7 - 16.5 gm/dL [facility] Hematocrit 39.6(L) 40.5 - 48.5 % [facility] MCV 99.7(H) 82.9 - 93.1 fL [facility] MCH 32.7(H) 27.5 - 32.1 pg [facility] MCHC 32.8 32.0 - 35.7 gm/dL [facility] Platelets 141(L) 145 - 357 x10(3)/[facility] RDWSD 47.8(H) 36.0 - 45.0 [facility] LABORATORY RDWCV 13.0 11.4 - 13.8 % [facility] MPV 10.6 7.6 - 12.9 [facility] LABORATORY nRBC % Auto 0.0 % [facility] nRBC Abs Auto 0.000 0.000 - 0.000 x10(3)/mcL [facility] Blood specimen (specimen) 06/03/2019 8:40 PM EST 06/03/2019 8:54 PM EST Narrative Resulting Agency Comment Spec In Lab Helio Duke MD HEMATOLOGY ORDERABLE S [facility] [place] [address] * XR Chest One View (06/03/2019 5:52 PM EST) Anatomical Region Laterality Modality Chest N/A Digital Radiogra phy Narrative 06/03/2019 6:05 PM EST EXAMINATION: XR CHEST ONE VIEW CLINICAL HISTORY: s/p right IJ, eval for ptx and tip location TECHNIQUE: 1 view of the chest , portable COMPARISON: 2010 FINDINGS: Enteric tube-both sidehole and tip are below the diaphragms. The tip projects in mid abdomen presumably in the body of the stomach. Right IJ catheter-tip at mid SVC. Pleura: No pneumothorax, blunted left CP angle represents effusion. Lungs: Low lung volumes and bibasal atelectasis. The right diaphragm is elevated. Cardiomediastinal structures: Normal Bones: no acute fracture seen Impression 1. ??Right IJ catheter tip projects over mid SVC 2. ??No pneumothorax. 3. ??Left pleural effusion 4. ??Bibasal atelectasis. Thank you for letting us participate in the care of this patient. For questions regarding this report, please contact the number below. ? Electronically signed by: Tiarra Rivera [facility] ([phone]), at 06/03/2019 6:05 PM Procedure Note Tiarra Rivera MD - 06/03/2019 EXAMINATION: XR CHEST ONE VIEW CLINICAL HISTORY: s/p right IJ, eval for ptx and tip location TECHNIQUE: 1 view of the chest , portable COMPARISON: 2010 FINDINGS: Enteric tube-both sidehole and tip are below the diaphragms. The tipprojects in mid abdomen presumably in the body of the stomach. Right IJ catheter-tip at mid SVC. Pleura: No pneumothorax, blunted left CP angle represents effusion. Lungs: Low lung volumes and bibasal atelectasis. The right diaphragm is elevated. Cardiomediastinal structures: Normal Bones: no acute fracture seen Impression 1. Right IJ catheter tip projects over mid SVC 2. No pneumothorax. 3. Left pleural effusion 4. Bibasal atelectasis. Thank you for letting us participate in the care of this patient. Forquestions regarding this report, please contact the number below. Electronically signed by: Tiarra Rivera [facility]([phone]), at 06/03/2019 6:05 PM Helio Duke MD IMG DX ORDERABLES * Lactate, whole blood, send to lab ([facility] [place] [place]) (06/03/2019 5:15 PM EST) Lactate WB 2.1 0.5 - 2.2 mmol/L [facility] Blood specimen (specimen) 06/03/2019 5:15 PM EST 06/03/2019 5:35 PM EST Narrative Resulting Agency Comment Spec In Lab Helio Duke MD CHEMISTRY ORDERABLES [facility] [place] [address] * (ABNORMAL) BMP w/fasting Glucose (06/03/2019 5:15 PM EST) Glucose Fasting 127(H) 65 - 99 mg/dL [facility] Comment: ?Fasting* Glucose Interpretive Criteria [...] of Diabetes Mellitus, Position Statement from the [employer]. ??Diabetes Care, Volume 33, Supplement 1, Apr 2009 BUN 19 10 - 20 mg/dL [facility] Creatinine 1.33 0.80 - 1.50 mg/dL [facility] Sodium 144 135 - 145 mmol/L [facility] Potassium 5.2(H) 3.5 - 5.0 mmol/L [facility] Comment: Please note: ??Patients with WBC >100,000 may have falsely elevated Potassium levels. ??For accurate Potassium quantification in these patients send serum separator tube (gold top) for subsequent determinations. ??Contact the Clinical Chemistry Laboratory if there are any questions. Chloride 112(H) 98 - 107 mmol/L [facility] CO2 21(L) 22 - 31 mmol/L [facility] Anion Gap 11 5 - 15 mmol/L [facility] Calcium 8.8 8.5 - 10.5 mg/dL [facility] Estimated GFR 52(L) >=60 mL/min/1. 73 m?? [facility] Comment: The eGFR was calculated using the CKD-EPI equation. As with all creatinine based estimates of kidney function, eGFR values calculated with the CKD-EPI equation are not accurate in patients with acute kidney failure, extremes of body mass or the acutely ill. [email or web address] eGFR 61 >=60 mL/min/1. 73 m?? [facility] Comment: The eGFR was calculated using the CKD-EPI equation. As with all creatinine based estimates of kidney function, eGFR values calculated with the CKD-EPI equation are not accurate in patients with acute kidney failure, extremes of body mass or the acutely ill. [email or web address] Blood specimen (specimen) 06/03/2019 5:15 PM EST 06/03/2019 5:35 PM EST Narrative Resulting Agency Comment Spec In Lab Helio Duke MD CHEMISTRY ORDERABLES Performing Organization Address City/State/[facility] Co de Phone Number [facility] [place] [address] * (ABNORMAL) Hemogram (06/03/2019 5:15 PM EST) WBC 14.9(H) 4.0 - 9.5 x10(3)/[facility] LABORATORY RBC 4.08(L) 4.58 - 5.54 x10(6)/[facility] LABORATORY Hemoglobin 12.8(L) 13.7 - 16.5 gm/dL [facility] Hematocrit 40.8 40.5 - 48.5 % [facility] MCV 100.0(H) 82.9 - 93.1 fL [facility] MCH 31.4 27.5 - 32.1 pg [facility] MCHC 31.4(L) 32.0 - 35.7 gm/dL [facility] Platelets 155 145 - 357 x10(3)/[facility] LABORATORY RDWSD 48.1(H) 36.0 - 45.0 [facility] LABORATORY RDWCV 13.0 11.4 - 13.8 % [facility] MPV 10.6 7.6 - 12.9 [facility] LABORATORY nRBC % Auto 0.0 % [facility] nRBC Abs Auto 0.000 0.000 - 0.000 x10(3)/[facility] LABORATORY Blood specimen (specimen) 06/03/2019 5:15 PM EST 06/03/2019 5:35 PM EST Narrative Resulting Agency Comment Spec In Lab Helio Duke MD HEMATOLOGY ORDERABLE S [facility] [place] [address] * EKG 12 Lead (06/03/2019 5:12 PM EST) Ventricular rate 90 BPM MUSE SYSTEM Atrial Rate 90 BPM MUSE SYSTEM P-R Interval 178 ms MUSE SYSTEM QRS Duration 134 ms MUSE SYSTEM Q-T Interval 398 ms MUSE SYSTEM QTC Calculated (Bezet) 486 ms MUSE SYSTEM Calculated P Fisher 21 degrees MUSE SYSTEM Calculated R Fisher -10 degrees MUSE SYSTEM Calculated T Fisher 47 degrees MUSE SYSTEM INTERPRETATION Normal sinus rhythm with sinus arrhythmia Left bundle branch block Abnormal ECG When compared with ECG of 08-APR-2019 13:51, Vent. rate has increased BY ??32 BPM Left bundle branch block is now Present Confirmed by MD EVELIN, MANDIE ([id number]) on 06/04/2019 5:58:45 PM MUSE SYSTEM 06/03/2019 5:12 PM EST 06/04/2019 5:58 PM EST Helio Duke MD ECG ORDERABLES Performing Organization Address City/[facility]/ZIP Co de Phone Number MUSE SYSTEM * (ABNORMAL) BLOOD GAS 2 ARTERIAL (06/03/2019 3:31 PM EST) pH Art 7.35 7.35 - 7.45 [facility] pCO2 Art 37 35 - 45 mmHg [facility] pO2 Art 126(H) 85 - 104 mmHg [facility] HCO3 Art 19.7(L) 20.0 - 26.0 mmol/L [facility] BE Art -6.0(L) -3.0 - 3.0 mmol/L [facility] Hgb Blood Gas 12.3(L) 13.7 - 16.5 gm/dL [facility] O2HB Art 97.5(H) 94.0 - 97.0 % [facility] COHB Art 0.4 % [facility] Comment: Nonsmokers: 0.5-1.5% COHB Smokers: Variable, but usually less than 10% Toxic: 20-30% COHB Lethal: Greater than 60% COHB METHB Art 0.3 <=1.5 % [facility] Na Whole Blood 136 135 - 145 mmol/L [facility] K Whole Blood 4.9 3.5 - 5.0 mmol/L [facility] Comment: Please note: Patients with WBC >100,000 may have falsely elevated Potassium levels. Contact the Clinical Chemistry Laboratory if there are any questions. ICa Whole Blood 1.28 1.15 - 1.33 mmol/L [facility] Comment: Note: ??Total bilirubin higher than 20 mg/dL may lead to falsely low ionized calcium. CL Whole Blood 111(H) 98 - 107 mmol/L [facility] Gluc Whole Bld 97 65 - 199 mg/dL [facility] Comment:Diabetes: >=200 mg/d L plus symptoms. Lactate WB 2.6(H) 0.5 - 2.2 mmol/L [facility] Blood specimen (specimen) 06/03/2019 3:31 PM EST 06/03/2019 3:31 PM EST Helio Duke MD CHEMISTRY ORDERABLES [facility] [place] [address] * (ABNORMAL) BLOOD GAS 2 ARTERIAL (06/03/2019 2:50 PM EST) pH Art 7.33(L) 7.35 - 7.45 [facility] pCO2 Art 34(L) 35 - 45 mmHg [facility] pO2 Art 438(H) 85 - 104 mmHg [facility] HCO3 Art 17.5(L) 20.0 - 26.0 mmol/L [facility] BE Art -8.3(L) -3.0 - 3.0 mmol/L [facility] Hgb Blood Gas 11.8(L) 13.7 - 16.5 gm/dL [facility] O2HB Art 99.3(H) 94.0 - 97.0 % [facility] COHB Art 0.1 % [facility] Comment: Nonsmokers: 0.5-1.5% COHB Smokers: Variable, but usually less than 10% Toxic: 20-30% COHB Lethal: Greater than 60% COHB METHB Art 0.0 <=1.5 % [facility] Na Whole Blood 134(L) 135 - 145 mmol/L [facility] K Whole Blood 5.0 3.5 - 5.0 mmol/L [facility] Comment: Please note: Patients with WBC >100,000 may have falsely elevated Potassium levels. Contact the Clinical Chemistry Laboratory if there are any questions. ICa Whole Blood 1.42(H) 1.15 - 1.33 mmol/L [facility] Comment: Note: ??Total bilirubin higher than 20 mg/dL may lead to falsely low ionized calcium. CL Whole Blood 110(H) 98 - 107 mmol/L [facility] Gluc Whole Bld 92 65 - 199 mg/dL [facility] Comment:Diabetes: >=200 mg/d L plus symptoms. Lactate WB 3.2(H) 0.5 - 2.2 mmol/L [facility] FIO2 Art 90 % [facility] PF Ratio Art 487 [facility] Blood specimen (specimen) 06/03/2019 2:50 PM EST 06/03/2019 2:50 PM EST Helio Duke MD CHEMISTRY ORDERABLES [facility] [place] [address] * (ABNORMAL) BLOOD GAS 2 ARTERIAL (06/03/2019 2:18 PM EST) pH Art 7.35 7.35 - 7.45 [facility] pCO2 Art 35 35 - 45 mmHg [facility] pO2 Art 421(H) 85 - 104 mmHg [facility] HCO3 Art 18.9(L) 20.0 - 26.0 mmol/L [facility] BE Art -6.7(L) -3.0 - 3.0 mmol/L [facility] Hgb Blood Gas 11.5(L) 13.7 - 16.5 gm/dL [facility] O2HB Art 98.7(H) 94.0 - 97.0 % [facility] COHB Art 0.3 % [facility] Comment: Nonsmokers: 0.5-1.5% COHB Smokers: Variable, but usually less than 10% Toxic: 20-30% COHB Lethal: Greater than 60% COHB METHB Art 0.3 <=1.5 % [facility] Na Whole Blood 135 135 - 145 mmol/L [facility] K Whole Blood 4.6 3.5 - 5.0 mmol/L [facility] Comment: Please note: Patients with WBC >100,000 may have falsely elevated Potassium levels. Contact the Clinical Chemistry Laboratory if there are any questions. ICa Whole Blood 1.25 1.15 - 1.33 mmol/L [facility] Comment: Note: ??Total bilirubin higher than 20 mg/dL may lead to falsely low ionized calcium. CL Whole Blood 109(H) 98 - 107 mmol/L [facility] Gluc Whole Bld 89 65 - 199 mg/dL [facility] Comment:Diabetes: >=200 mg/d L plus symptoms. Lactate WB 2.7(H) 0.5 - 2.2 mmol/L [facility] FIO2 Art 90 % [facility] PF Ratio Art 468 [facility] Blood specimen (specimen) 06/03/2019 2:18 PM EST 06/03/2019 2:18 PM EST Helio Duke MD CHEMISTRY ORDERABLES [facility] [place] [address] * (ABNORMAL) BLOOD GAS 2 ARTERIAL (06/03/2019 1:43 PM EST) pH Art 7.25(Criti meagan) 7.35 - 7.45 [facility] pCO2 Art 43 35 - 45 mmHg [facility] pO2 Art 397(H) 85 - 104 mmHg [facility] HCO3 Art 18.4(L) 20.0 - 26.0 mmol/L [facility] BE Art -8.8(L) -3.0 - 3.0 mmol/L [facility] Hgb Blood Gas 11.7(L) 13.7 - 16.5 gm/dL [facility] O2HB Art 98.8(H) 94.0 - 97.0 % [facility] COHB Art 0.3 % [facility] Comment: Nonsmokers: 0.5-1.5% COHB Smokers: Variable, but usually less than 10% Toxic: 20-30% COHB Lethal: Greater than 60% COHB METHB Art 0.3 <=1.5 % [facility] Na Whole Blood 134(L) 135 - 145 mmol/L [facility] K Whole Blood 4.5 3.5 - 5.0 mmol/L [facility] Comment: Please note: Patients with WBC >100,000 may have falsely elevated Potassium levels. Contact the Clinical Chemistry Laboratory if there are any questions. ICa Whole Blood 1.50(H) 1.15 - 1.33 mmol/L [facility] Comment: Note: ??Total bilirubin higher than 20 mg/dL may lead to falsely low ionized calcium. CL Whole Blood 110(H) 98 - 107 mmol/L [facility] Gluc Whole Bld 103 65 - 199 mg/dL [facility] Comment:Diabetes: >=200 mg/d L plus symptoms. Lactate WB 3.4(H) 0.5 - 2.2 mmol/L [facility] FIO2 Art 90 % [facility] PF Ratio Art 441 [facility] Blood specimen (specimen) 06/03/2019 1:43 PM EST 06/03/2019 1:43 PM EST Helio Duke MD CHEMISTRY ORDERABLES [facility] [place] [address] * (ABNORMAL) BLOOD GAS 2 ARTERIAL (06/03/2019 12:35 PM EST) pH Art 7.35 7.35 - 7.45 [facility] pCO2 Art 38 35 - 45 mmHg [facility] pO2 Art 246(H) 85 - 104 mmHg [facility] HCO3 Art 20.5 20.0 - 26.0 mmol/L [facility] BE Art -5.1(L) -3.0 - 3.0 mmol/L [facility] Hgb Blood Gas 12.1(L) 13.7 - 16.5 gm/dL [facility] O2HB Art 98.6(H) 94.0 - 97.0 % [facility] COHB Art 0.4 % [facility] Comment: Nonsmokers: 0.5-1.5% COHB Smokers: Variable, but usually less than 10% Toxic: 20-30% COHB Lethal: Greater than 60% COHB METHB Art 0.3 <=1.5 % [facility] Na Whole Blood 131(L) 135 - 145 mmol/L [facility] K Whole Blood 4.1 3.5 - 5.0 mmol/L [facility] Comment: Please note: Patients with WBC >100,000 may have falsely elevated Potassium levels. Contact the Clinical Chemistry Laboratory if there are any questions. ICa Whole Blood 1.06(L) 1.15 - 1.33 mmol/L [facility] Comment: Note: ??Total bilirubin higher than 20 mg/dL may lead to falsely low ionized calcium. CL Whole Blood 107 98 - 107 mmol/L [facility] Gluc Whole Bld 110 65 - 199 mg/dL [facility] Comment:Diabetes: >=200 mg/d L plus symptoms. Lactate WB 1.9 0.5 - 2.2 mmol/L [facility] FIO2 Art 70 % [facility] PF Ratio Art 351 [facility] Blood specimen (specimen) 06/03/2019 12:35 PM EST 06/03/2019 12:35 PM EST Helio Duke MD CHEMISTRY ORDERABLES [facility] [place] [address] * (ABNORMAL) BLOOD GAS 2 ARTERIAL (06/03/2019 11:38 AM EST) pH Art 7.34(L) 7.35 - 7.45 [facility] pCO2 Art 40 35 - 45 mmHg [facility] pO2 Art 96 85 - 104 mmHg [facility] HCO3 Art 21.0 20.0 - 26.0 mmol/L [facility] BE Art -4.8(L) -3.0 - 3.0 mmol/L [facility] Hgb Blood Gas 13.5(L) 13.7 - 16.5 gm/dL [facility] O2HB Art 96.1 94.0 - 97.0 % [facility] COHB Art 0.9 % [facility] Comment: Nonsmokers: 0.5-1.5% COHB Smokers: Variable, but usually less than 10% Toxic: 20-30% COHB Lethal: Greater than 60% COHB METHB Art 0.1 <=1.5 % [facility] Na Whole Blood 136 135 - 145 mmol/L [facility] K Whole Blood 4.0 3.5 - 5.0 mmol/L [facility] Comment: Please note: Patients with WBC >100,000 may have falsely elevated Potassium levels. Contact the Clinical Chemistry Laboratory if there are any questions. ICa Whole Blood 1.10(L) 1.15 - 1.33 mmol/L [facility] Comment: Note: ??Total bilirubin higher than 20 mg/dL may lead to falsely low ionized calcium. CL Whole Blood 108(H) 98 - 107 mmol/L [facility] Gluc Whole Bld 126 65 - 199 mg/dL [facility] Comment:Diabetes: >=200 mg/d L plus symptoms. Lactate WB 1.6 0.5 - 2.2 mmol/L [facility] FIO2 Art 40 % [facility] PF Ratio Art 240 [facility] Blood specimen (specimen) 06/03/2019 11:38 AM EST 06/03/2019 11:38 AM EST Helio Duke MD CHEMISTRY ORDERABLES Performing Organization Address City/State/[facility] Co de Phone Number [facility] [place] [address] * (ABNORMAL) BLOOD GAS 2 ARTERIAL (06/03/2019 8:54 AM EST) pH Art 7.36 7.35 - 7.45 [facility] pCO2 Art 41 35 - 45 mmHg [facility] pO2 Art 505(H) 85 - 104 mmHg [facility] HCO3 Art 22.8 20.0 - 26.0 mmol/L [facility] BE Art -2.6 -3.0 - 3.0 mmol/L [facility] Hgb Blood Gas 12.8(L) 13.7 - 16.5 gm/dL [facility] O2HB Art 99.0(H) 94.0 - 97.0 % [facility] COHB Art 0.4 % [facility] Comment: Nonsmokers: 0.5-1.5% COHB Smokers: Variable, but usually less than 10% Toxic: 20-30% COHB Lethal: Greater than 60% COHB METHB Art 0.3 <=1.5 % [facility] Na Whole Blood 136 135 - 145 mmol/L [facility] K Whole Blood 4.0 3.5 - 5.0 mmol/L [facility] Comment: Please note: Patients with WBC >100,000 may have falsely elevated Potassium levels. Contact the Clinical Chemistry Laboratory if there are any questions. ICa Whole Blood 1.15 1.15 - 1.33 mmol/L [facility] Comment: Note: ??Total bilirubin higher than 20 mg/dL may lead to falsely low ionized calcium. CL Whole Blood 107 98 - 107 mmol/L [facility] Gluc Whole Bld 122 65 - 199 mg/dL [facility] Comment:Diabetes: >=200 mg/d L plus symptoms. Lactate WB 1.3 0.5 - 2.2 mmol/L [facility] FIO2 Art 90 % [facility] PF Ratio Art 561 [facility] Blood specimen (specimen) 06/03/2019 8:54 AM EST 06/03/2019 8:54 AM EST Helio Duke MD CHEMISTRY ORDERABLES Performing Organization Address [facility] Co de Phone Number [facility] [place] [address] * XR Fluoro No Rad <1Hr - OR Use (06/03/2019 7:53 AM EST) Narrative RAD - 06/03/2019 7:53 AM EST This exam is auto-finalizing. No interpretation was done. Helio Duke MD IMG FLUORO ORDERABLE S Performing Organization Address City/[facility]/ZIP Co de Phone Number [place], [place] * ABORH Recheck Status (06/03/2019 6:11 AM EST) ABORH Recheck Order Order Placed [facility] ABORH Type Recheck Complete [facility] Blood specimen (specimen) 06/03/2019 6:11 AM EST 06/03/2019 6:25 AM EST Narrative Resulting Agency Comment Spec In Lab Helio Duke MD BLOOD BANK LAB ORDER DAVE Performing Organization Address City/[facility]/ZIP Co de Phone Number [facility] [place] [address] * Urinalysis without microscopic (06/03/2019 6:11 AM EST) Glucose UA Negative Negative mg/dL [facility] Protein UA Negative Negative mg/dL [facility] Bilirubin UA Negative Negative mg/dL [facility] Comment: Clinical correlation required for positive Urine Bilirubin results as false positive may occur with some drugs and drug related products. If a false positive is suspected a serum total bilirubin should be considered if clinically indicated. Urobilinogen UA Normal Normal mg/dL [facility] pH UA 6.0 5.0 - 8.0 [facility] Blood UA Negative Negative mg/dL [facility] Ketones UA Negative Negative mg/dL [facility] Nitrite UA Negative Negative [facility] Leukocytes UA Negative Negative [facility] Appearance UA Clear Clear [facility] Spec [place] UA 1.022 1.002 - 1.030 [facility] Color UA Yellow Yellow [facility] Urine specimen (specimen) Urine / Unknown 06/03/2019 6:11 AM EST 06/03/2019 6:23 AM EST Narrative Resulting Agency Comment Spec In Lab Helio Duke MD URINE ORDERABLES [facility] [place] [address] * (ABNORMAL) Hemogram (06/03/2019 6:11 AM EST) WBC 7.8 4.0 - 9.5 x10(3)/[facility] RBC 4.45(L) 4.58 - 5.54 x10(6)/[facility] Hemoglobin 14.4 13.7 - 16.5 gm/dL [facility] Hematocrit 43.1 40.5 - 48.5 % [facility] MCV 96.9(H) 82.9 - 93.1 [facility] MCH 32.4(H) 27.5 - 32.1 pg [facility] MCHC 33.4 32.0 - 35.7 gm/dL [facility] Platelets 178 145 - 357 x10(3)/[facility] RDWSD 46.5(H) 36.0 - 45.0 [facility] RDWCV 13.0 11.4 - 13.8 % [facility] MPV 10.2 7.6 - 12.9 [facility] nRBC % Auto 0.0 % [facility] nRBC Abs Auto 0.000 0.000 - 0.000 x10(3)/[facility] Blood specimen (specimen) Venous Draw / Unknown 06/03/2019 6:11 AM EST 06/03/2019 6:22 AM EST Narrative Resulting Agency Comment Spec In Lab Helio Duke MD HEMATOLOGY ORDERABLE S Performing Organization Address City/State/[facility] Co de Phone Number [facility] [place] [address] * Basic Metabolic Panel (non-fasting) (06/03/2019 6:11 AM EST) Glucose Lvl 105 65 - 199 mg/dL [facility] Comment:Diabetes: >=200 mg/d L plus symptoms BUN 17 10 - 20 mg/dL [facility] Creatinine 0.90 0.80 - 1.50 mg/dL [facility] Sodium 142 135 - 145 mmol/L [facility] Potassium 4.2 3.5 - 5.0 mmol/L [facility] Comment: Please note: ??Patients with WBC >100,000 may have falsely elevated Potassium levels. ??For accurate Potassium quantification in these patients send serum separator tube (gold top) for subsequent determinations. ??Contact the Clinical Chemistry Laboratory if there are any questions. Chloride 106 98 - 107 mmol/L [facility] CO2 24 22 - 31 mmol/L [facility] Anion Gap 12 5 - 15 mmol/L [facility] Calcium 9.5 8.5 - 10.5 mg/dL [facility] Estimated GFR 84 >=60 mL/min/1. 73 m?? [facility] Comment: The eGFR was calculated using the CKD-EPI equation. As with all creatinine based estimates of kidney function, eGFR values calculated with the CKD-EPI equation are not accurate in patients with acute kidney failure, extremes of body mass or the acutely ill. [email or web address] [email or web address] eGFR 97 >=60 mL/min/1. 73 m?? [facility] Comment: The eGFR was calculated using the CKD-EPI equation. As with all creatinine based estimates of kidney function, eGFR values calculated with the CKD-EPI equation are not accurate in patients with acute kidney failure, extremes of body mass or the acutely ill. [email or web address] [email or web address] [email or web address] Blood specimen (specimen) Venous Draw / Unknown 06/03/2019 6:11 AM EST 06/03/2019 6:22 AM EST Narrative Resulting Agency Comment Spec In Lab Helio Duke MD CHEMISTRY ORDERABLES [facility] [place] [address] * Prealbumin (06/03/2019 6:11 AM EST) Prealbumin 25 20 - 40 mg/dL [facility] Comment: Prealbumin levels are generally lower in the pediatric population; adult concentrations are usually attained near puberty. Blood specimen (specimen) Venous Draw / Unknown 06/03/2019 6:11 AM EST 06/03/2019 6:22 AM EST Narrative Resulting Agency Comment Spec In Lab Helio Duke MD CHEMISTRY ORDERABLES Performing Organization Address [facility] Co de Phone Number [facility] [place] [address] * Antibody screen (06/03/2019 6:11 AM EST) Ab Screen Interp Negative [facility] Expires at [id number] on: 06/06/2019 [facility] Blood specimen (specimen) 06/03/2019 6:11 AM EST 06/03/2019 6:25 AM EST Narrative Resulting Agency Comment Spec In Lab Helio Duke MD BLOOD BANK LAB ORDER DAVE Performing Organization Address [facility] Co de Phone Number [facility] [place] [address] * ABO/Rh Typing (06/03/2019 6:11 AM EST) ABORH Type A Neg [facility] Blood specimen (specimen) 06/03/2019 6:11 AM EST 06/03/2019 6:25 AM EST Narrative Resulting Agency Comment Spec In Lab Helio Duke MD BLOOD BANK LAB ORDER DAVE Performing Organization Address 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 Abdominal aortic aneurysm (AAA) without rupture Pre-op testing Preoperative examination, unspecified Malignant melanoma of skin Melanoma of skin, site unspecified Hyperkalemia Hyperpotassemia Atrial fibrillation, unspecified type AAA (abdominal aortic aneurysm) Abdominal aneurysm without mention of rupture Abdominal aortic aneurysm (AAA) without rupture documented in this encounter Admitting Diagnoses Diagnosis AAA (abdominal aortic aneurysm) Abdominal aneurysm without mention of rupture documented in this encounter Administered Medications Inactive Administered Medications - up to 3 most recent administrations Medication Order MAR Action Action Date Dose Rate Site acetaminophen (OFIRMEV) injection 1,000 mg 1,000 mg, Intravenous, at 400 mL/hr, Administer over 15 Minutes, EVERY 8 HOURS SCHEDULED, 3 doses, First dose on Sun06/04/19 at 1200, Last dose on Aby 06/05/19 at 0400, Routine, Is ketorolac (Toradol) IV contraindicated? Yes, Can this patient tolerate oral medications or suppositories? No Given 06/05/2019 4:25 AM EST 1,000 mg 400 mL/hr Given 06/04/2019 8:25 PM EST 1,000 mg 400 mL/hr Given 06/04/2019 11:56 AM EST 1,000 mg 400 mL/hr acetaminophen (OFIRMEV) injection 1,000 mg 1,000 mg, Intravenous, at 400 mL/hr, Administer over 15 Minutes, EVERY 8 HOURS SCHEDULED, 3 doses, First dose (after last reorder) on Sun06/06/19 at 1430, Last dose on Sun06/07/19 at 0630, Routine, Is ketorolac (Toradol) IV contraindicated? Yes, Can this patient tolerate oral medications or suppositories? No Given 06/07/2019 5:49 AM EST 1,000 mg 400 mL/hr Given 06/06/2019 9:31 PM EST 1,000 mg 400 mL/hr Given 06/06/2019 3:34 PM EST 1,000 mg 400 mL/hr acetaminophen (OFIRMEV) injection 1,000 mg 1,000 mg, Intravenous, at 400 mL/hr, Administer over 15 Minutes, EVERY 8 HOURS SCHEDULED, 3 doses, First dose (after last reorder) on 06/08/19 at 0645, Last dose on 06/08/19 at 2230, Routine, Is ketorolac (Toradol) IV contraindicated? Yes, Can this patient tolerate oral medications or suppositories? No Given 06/08/2019 10:18 PM EST 1,000 mg 400 mL/hr Given 06/08/2019 2:06 PM EST 1,000 mg 400 mL/hr Given 06/08/2019 8:21 AM EST 1,000 mg 400 mL/hr acetaminophen (Tylenol) tablet 1,000 mg 1,000 mg, Oral, ONCE, 1 dose, On Tu06/03/19 at 0645, Administer with SIP of H2O only., Day of Surgery (Day of Procedure), Routine Given 06/03/2019 6:41 AM EST 1,000 mg acetaminophen (Tylenol) tablet 650 mg 650 mg, Oral, EVERY 6 HOURS PRN, Starting on Sun06/09/19 at 0848, Until Sun06/10/19 at 1719, Pain, Fever, Maximum dose of acetaminophen is 4000 mg from all sources in 24 hours., Routine amLODIPine (Norvasc) tablet 5 mg 5 mg, Oral, DAILY, First dose on Sun06/10/19 at 1145, Until Discontinued, Routine Given 06/10/2019 11:42 AM EST 5 mg aspirin chewable tablet 81 mg 81 mg, Oral, DAILY, First dose on Sun06/10/19 at 0900, Until Discontinued, Routine Given 06/10/2019 8:13 AM EST 81 mg aspirin suppository 300 mg 300 mg, Rectal, DAILY, First dose on Sun06/04/19 at 1200, Until Discontinued, Routine Given 06/09/2019 8:41 AM EST 300 mg Given 06/08/2019 9:50 AM EST 300 mg Given 06/07/2019 12:00 PM EST 300 mg bisacodyL (Dulcolax) suppository 10 mg 10 mg, Rectal, DAILY PRN, Starting on Sun06/08/19 at 0628, Until Sun06/10/19 at 1719, Constipation, Routine Given 06/08/2019 4:59 PM EST 10 mg bisacodyL (Dulcolax) suppository 10 mg 10 mg, Rectal, ONCE, 1 dose, On Sun06/09/19 at 0800, Routine Given 06/09/2019 8:00 AM EST 10 mg calcium gluconate 1g in sodium chloride 0.9% 100mL 1 g, Intravenous, ONCE, 1 dose, On Sun06/04/19 at 2030, Administer over 60 Minutes, Warning Vesicant/Irritant Medication Patient must be on telephone operator receptionist when receiving calcium; calcium can exacerbate digoxin toxicity. Since the effect of calcium is transient, patients with hyperkalemia also require treatments to shift potassium into cells and increase potassium excretion. Infusion over 6 minutes - Bedside monitor required. New Bag 06/04/2019 8:42 PM EST 1 g 100 mL/hr ceFAZolin (ANCEF) 2g in dextrose 5% 100 mL 2 g, Intravenous, EVERY 8 HOURS, 3 doses, First dose on Sun06/03/19 at 1700, Last dose on Sun06/04/19 at 0400, Administer over 30 Minutes, Redose after 4 hours., Recovery (Recovery-Hospital Unit), Indication for (Active or Suspected): Prophylaxis New Bag 06/04/2019 4:38 AM EST 2 g 200 mL/hr New Bag 06/03/2019 7:10 PM EST 2 g 200 mL/hr Le ft Arm ceFAZolin (Ancef) 2g in dextrose 5% 100 mL 2 g, Intravenous, EVERY 8 HOURS, First dose on Sun06/09/19 at 1415, Until Discontinued, Administer over 30 Minutes, Indication for (Active or Suspected): Skin/Skin Structure Given 06/10/2019 6:13 AM EST 2 g 200 mL/hr Given 06/09/2019 10:04 PM EST 2 g 200 mL/hr Given 06/09/2019 2:26 PM EST 2 g 200 mL/hr fentaNYL (PF) 50mcg/mL injection 12.5-50 mcg, Intravenous, EVERY 1 MIN PRN, Starting on Sun06/03/19 at 0556, Until Sun06/03/19 at 0738, Pain, for epidural placement only, Start dose 25 mcg (Reduce dose to 12.5 mcg if history of sedation sensitivity). Titration dose: 12.5-50 mcg IV (based on patient response) Intravenous (IV), every 3 minutes to maintain procedural pain less than 2 per pain scale. Maximum dose 50mcg per dose, 250mcg/hour., Routine Given 06/03/2019 7:38 AM EST 25 mcg Given 06/03/2019 7:32 AM EST 25 mcg furosemide (LASIX) injection 20 mg 20 mg, Intravenous, ONCE, 1 dose, On Sun06/06/19 at 0900 Given 06/06/2019 9:28 AM EST 20 mg furosemide (LASIX) injection 20 mg 20 mg, Intravenous, ONCE, 1 dose, On 06/07/19 at 1130 Given 06/07/2019 11:46 AM EST 20 mg furosemide (LASIX) injection 20 mg 20 mg, Intravenous, ONCE, 1 dose, On Sun06/08/19 at 0645 Given 06/08/2019 8:21 AM EST 20 mg heparin (Porcine) subcutaneous injection 5,000 Units 5,000 Units, Subcutaneous, EVERY 8 HOURS SCHEDULED, First dose on Sun06/04/19 at 1400, Until Discontinued, Routine Given 06/08/2019 5:02 AM EST 5,000 Units Given 06/07/2019 10:54 PM EST 5,000 Units Given 06/07/2019 1:32 PM EST 5,000 Units heparin (Porcine) subcutaneous injection 5,000 Units 5,000 Units, Subcutaneous, EVERY 12 HOURS SCHEDULED (2 times per day), 1 dose, First dose (after last modification) on Sun06/08/19 at 2100, Routine Given 06/08/2019 10:17 PM EST 5,000 Units Abdominal Tissue hydrALAZINE (APRESOLINE) injection 10 mg 10 mg, Intravenous, EVERY 1 HOUR PRN, Starting on Sun06/03/19 at 1640, Until Sun06/10/19 at 1719, High Blood Pressure, for blood pressure > 150 for maximum of 2 doses then jasmine STOREY, Use if 2 doses of labetalol ineffective in achieving goal., Routine Given 06/10/2019 12:25 AM EST 10 mg HYDROmorphone (Dilaudid) 10 mcg/mL, BUpivacaine (Marcaine) 0.1% (0.1 mg/mL) (1/10%) in sodium chloride 0.9% 250 mL epidural Epidural, PCEA Dose: 3 mL, PCEA Frequency: Every 20 minutes, Maximum rate for continuous infusion 14 mL per hour Maximum total epidural rate (continuous and PCEA bolus) is 25 mL per hour, Recovery (Recovery-Hospital Unit) Rate/Dose Change 06/09/2019 6:35 AM EST 0.1 mL/hr 0.1 mL/hr New Bag 06/09/2019 5:05 AM EST 3 mL/hr 3 mL/hr Rate/Dose Change 06/08/2019 8:00 AM EST 3 mL/hr 3 mL/hr HYDROmorphone (DILAUDID) injection 0.2 mg 0.2 mg, Epidural, ONCE, 1 dose, On Sun06/03/19 at 0615, Routine Given 06/03/2019 7:54 AM EST 0.2 mg insulin regular human 10 Units in dextrose 10% 500 mL infusion 10 Units, Intravenous, ONCE, 1 dose, On Sun06/04/19 at 1815, Administer over 1 Hours, This order should only be used as part of the hyperkalemia order set. Monitor BG every two hours X 3 and PRN. New Bag 06/04/2019 6:58 PM EST 10 Units lidocaine ((GLYDO)) 2 % gel 11 mL 11 mL, INTRA-URETHRAL, ONCE, 1 dose, On Sun06/06/19 at 2030, Routine Given 06/06/2019 9:26 PM EST 11 mLs magnesium sulfate 2 g in sterile water 50 mL 2 g, Intravenous, ONCE, 1 dose, On Sun06/04/19 at 2100, Administer over 120 Minutes, Minimum infusion duration is 2 hours. New Bag 06/04/2019 10:41 PM EST 2 g 25 mL/hr magnesium sulfate 2 g in sterile water 50 mL 2 g, Intravenous, ONCE, 1 dose, On Sun06/06/19 at 0430, Administer over 120 Minutes, Minimum infusion duration is 2 hours. New Bag 06/06/2019 4:26 AM EST 2 g 25 mL/hr metoprolol (LOPRESSOR) injection 5 mg 5 mg, Intravenous, EVERY 5 MIN PRN, Starting on Sun06/03/19 at 1632, Until Sun06/04/19 at 0019, Elevated Heart Rate, please give for HR greater than 110, hold for SBP less than 90., PACU Recovery Given 06/03/2019 4:53 PM EST 5 mg Left Arm metoprolol (LOPRESSOR) injection 5 mg 5 mg, Intravenous, ONCE PRN, 1 dose, Starting on Sun06/06/19 at 0404, Until Sun06/06/19 at 0426, High Blood Pressure Given 06/06/2019 4:26 AM EST 5 mg metoprolol (LOPRESSOR) injection 5 mg 5 mg, Intravenous, ONCE PRN, 1 dose, Starting on Sun06/06/19 at 0455, Until Sun06/06/19 at 0530, High Blood Pressure Given 06/06/2019 5:30 AM EST 5 mg metoprolol (LOPRESSOR) injection 5 mg 5 mg, Intravenous, EVERY 4 HOURS, First dose on Sun06/06/19 at 0900, Until Discontinued Given 06/07/2019 5:19 AM EST 5 mg Given 06/06/2019 9:26 PM EST 5 mg Given 06/06/2019 6:34 PM EST 5 mg metoprolol (LOPRESSOR) injection 5 mg 5 mg, Intravenous, EVERY 6 HOURS, First dose (after last modification) on Sun06/07/19 at 1130, Until Discontinued Given 06/10/2019 6:10 AM EST 5 mg Given 06/09/2019 4:47 PM EST 5 mg Given 06/09/2019 11:09 AM EST 5 mg midazolam (PF) (VERSED) injection 0.5-2 mg 0.5-2 mg, Intravenous, EVERY 1 MIN PRN, Starting on Sun06/03/19 at 0556, Until Sun06/03/19 at 0738, epidural placement only, Start dose 1 mg (Reduce dose to 0.5 mg if history of sedation sensitivity). Titration dose: 0.5 mg-2 mg IV (based on patient response) Intravenous (IV), every 3 minutes PRN to obtain RASS score of -2. Maximum dose 2 mg per dose, 10 mg/hour., Routine Given 06/03/2019 7:38 AM EST 1 mg Given 06/03/2019 7:32 AM EST 1 mg Given 06/03/2019 7:28 AM EST 1 mg ondansetron (ZOFRAN) injection 4-8 mg 4-8 mg, Intravenous, EVERY 8 HOURS PRN, Starting on Sun06/04/19 at 0249, Until Sun06/10/19 at 1719, Nausea, Start with 4mg and if ineffective in 30 minutes, give an additional 4mg ondansetron (Zofran) tablet 4-8 mg 4-8 mg, Oral, EVERY 8 HOURS PRN, Starting on Sun06/04/19 at 0249, Until Sun06/10/19 at 1719, Nausea, Vomiting, If multiple antiemetics are ordered, use ondansetron first. PO Preferred. If patient unable to take PO, may give IV if ordered. May repeat times one in 45 minutes if ineffective. , Routine oxyCODONE (Roxicodone) tablet 10-15 mg 10-15 mg, Oral, EVERY 4 HOURS PRN, Starting on Sun06/09/19 at 0847, Until Sun06/10/19 at 1719, Pain, severe pain (7-10), Initial dose 10mg. If pain control not adequate in 60 minutes, give additional 5mg, Routine oxyCODONE (Roxicodone) tablet 5-10 mg 5-10 mg, Oral, EVERY 4 HOURS PRN, Starting on Sun06/09/19 at 0847, Until Sun06/10/19 at 1719, Pain, moderate pain (4-6), Initial dose 5mg. If pain control not adequate in 60 minutes, give additional 5mg, Routine phenol 1.4% (CHLORASEPTIC) spray 1 spray 1 spray, Oral, EVERY 4 HOURS PRN, Starting on Sun06/04/19 at 2000, Until Sun06/10/19 at 1719, Irritation, Routine Given 06/04/2019 8:47 PM EST 1 spray sodium chloride 0.9% 1,000 mL IV bolus Intravenous, ONCE, 1 dose, On Sun06/04/19 at 1815 New Bag 06/04/2019 6:57 PM EST sodium chloride 0.9% infusion 100 mL/hr, Intravenous, CONTINUOUS, Starting on Sun06/03/19 at 2215, Until Sun06/07/19 at 0657, Recovery (Recovery-Hospital Unit) New Bag 06/07/2019 12:00 AM EST 100 mL/hr 100 m L/hr New Bag 06/06/2019 3:39 PM EST 100 mL/hr 100 mL/hr New Bag 06/04/2019 8:21 PM EST 100 mL/hr 100 mL/hr documented in this encounter Active and Recently Administered Medications Times are shown in EST. Scheduled Medication Order 06/08/2019 06/09/2019 06/10/2019 acetaminophen (OFIRMEV) injection 1,000 mg (COMPLETED) 1,000 mg, Intravenous, at 400 mL/hr, Administer over 15 Minutes, EVERY 8 HOURS SCHEDULED, 3 doses, First dose (after last reorder) on Sun06/08/19 at 0645, Last dose on Sun06/08/19 at 2230, Routine, Is ketorolac (Toradol) IV contraindicated? Yes, Can this patient tolerate oral medications or suppositories? No 0821 (Given - Provider: Marv Solano, KEVIN)1406 (Given - Provider: Arielle Ivan)2217 (Given - Provider: Emilia Williamson RN) amLODIPine (Norvasc) tablet 5 mg 5 mg, Oral, DAILY, First dose on Sun06/10/19 at 1145, Until Discontinued, Routine 1142 (Given - Provider: Ya Cruz RN) aspirin chewable tablet 81 mg 81 mg, Oral, DAILY, First dose on Sun06/10/19 at 0900, Until Discontinued, Routine 0813 (Given - Provider: Ya Cruz RN) aspirin suppository 300 mg (CANCELED) 300 mg, Rectal, DAILY, First dose on Sun06/04/19 at 1200, Until Discontinued, Routine 0950 (Given - Provider: Marv Solano RN) 0841 (Given - Provider: Ari Olivia RN) bisacodyL (Dulcolax) suppository 10 mg (CANCELED) 10 mg, Rectal, ONCE, 1 dose, On Sun06/09/19 at 0800, Routine 0800 (Given - Provider: Ari Olivia RN) ceFAZolin (Ancef) 2g in dextrose 5% 100 mL (CANCELED) 2 g, Intravenous, EVERY 8 HOURS, First dose on Sun06/09/19 at 1415, Until Discontinued, Administer over 30 Minutes, Indication for (Active or Suspected): Skin/Skin Structure 1426 (Given - Provider: Kathryn River RN)2204 (Given - Provider: David Trivedi RN) 0613 (Given - Provider: David Trivedi RN) furosemide (LASIX) injection 20 mg (COMPLETED) 20 mg, Intravenous, ONCE, 1 dose, On 06/08/19 at 0645 0821 (Given - Provider: Marv Solano RN) heparin (Porcine) subcutaneous injection 5,000 Units (CANCELED) 5,000 Units, Subcutaneous, EVERY 8 HOURS SCHEDULED, First dose on Sun06/04/19 at 1400, Until Discontinued, Routine 0502 (Given - Provider: Gissel Jaquez RN) heparin (Porcine) subcutaneous injection 5,000 Units (COMPLETED) 5,000 Units, Subcutaneous, EVERY 12 HOURS SCHEDULED (2 times per day), 1 dose, First dose (after last modification) on 06/08/19 at 2100, Routine 2217 (Given - Provider: Emilia Williamson RN) metoprolol (LOPRESSOR) injection 5 mg (CANCELED) 5 mg, Intravenous, EVERY 6 HOURS, First dose (after last modification) on 06/07/19 at 1130, Until Discontinued 0435 (Given - Provider: Gissel Jaquez RN)1228 (Given - Provider: Marv Solano RN)1652 (Hold - Provider: Marv Solano RN - Reason: See comment - Comment: HR 55)2340 (Given - Provider: Emilia Williamson RN) 0527 (Given - Provider: Emilia Williamson, KEVIN)1109 (Given - Provider: Ari Olivia RN)1647 (Given - Provider: Ari Olivia RN)2330 (Hold - Provider: David Trivedi RN - Reason: See comment - Comment: Pulse 52) 0610 (Given - Provider: David Trivedi RN) Continuous Medication Order 06/08/2019 06/09/2019 06/10/2019 HYDROmorphone (Dilaudid) 10 mcg/mL, BUpivacaine (Marcaine) 0.1% (0.1 mg/mL) (1/10%) in sodium chloride 0.9% 250 mL epidural (CANCELED)(Linked Group 1) Epidural, PCEA Dose: 3 mL, PCEA Frequency: Every 20 minutes, Maximum rate for continuous infusion 14 mL per hour Maximum total epidural rate (continuous and PCEA bolus) is 25 mL per hour, Recovery (Recovery-Hospital Unit) 0503 (New Bag - Provider: Gissel Jaquez RN)0800 (Rate/Dose Change - Provider: Marv Solano RN) 0505 (New Bag - Provider: Emilia Williamson RN)0635 (Rate/Dose Change - Provider: Ari Olivia RN - Comment: Completed by APS service.) PRN Medication Order 06/08/2019 06/09/2019 06/10/2019 acetaminophen (Tylenol) tablet 650 mg 650 mg, Oral, EVERY 6 HOURS PRN, Starting on 06/09/19 at 0848, Until Sun06/10/19 at 1719, Pain, Fever, Maximum dose of acetaminophen is 4000 mg from all sources in 24 hours., Routine bisacodyL (Dulcolax) suppository 10 mg 10 mg, Rectal, DAILY PRN, Starting on 06/08/19 at 0628, Until Sun06/10/19 at 1719, Constipation, Routine 1659 (Given - Provider: Marv Solano RN) 0841 (Canceled Entry - Provider: Ari Olivia RN - Reason: Entered in Error)0842 (Canceled Entry - Provider: Ari Olivia RN - Reason: Entered in Error) hydrALAZINE (APRESOLINE) injection 10 mg 10 mg, Intravenous, EVERY 1 HOUR PRN, Starting on Sun06/03/19 at 1640, Until Sun06/10/19 at 1719, High Blood Pressure, for blood pressure > 150 for maximum of 2 doses then jasmine STOREY, Use if 2 doses of labetalol ineffective in achieving goal., Routine 0025 (Given - Provider: David Trivedi RN) labetalol (NORMODYNE,TRANDATE) injection 10 mg 10 mg, Intravenous, EVERY 1 HOUR PRN, Starting on Sun06/03/19 at 1640, Until Sun06/10/19 at 1719, High Blood Pressure, for SBP > 150, hold for HR < 60 for maximum of 2 doses, then jasmine STOREY., May repeat 10 mg in 15 minutes once if SBP goal not achieved, Routine ondansetron (ZOFRAN) injection 4-8 mg(Linked Group 2) 4-8 mg, Intravenous, EVERY 8 HOURS PRN, Starting on Sun06/04/19 at 0249, Until Sun06/10/19 at 1719, Nausea, Start with 4mg and if ineffective in 30 minutes, give an additional 4mg ondansetron (Zofran) tablet 4-8 mg(Linked Group 2) 4-8 mg, Oral, EVERY 8 HOURS PRN, Starting on Sun06/04/19 at 0249, Until Sun06/10/19 at 1719, Nausea, Vomiting, If multiple antiemetics are ordered, use ondansetron first. PO Preferred. If patient unable to take PO, may give IV if ordered. May repeat times one in 45 minutes if ineffective. , Routine oxyCODONE (Roxicodone) tablet 10-15 mg(Linked Group 3) 10-15 mg, Oral, EVERY 4 HOURS PRN, Starting on 06/09/19 at 0847, Until Sun06/10/19 at 1719, Pain, severe pain (7-10), Initial dose 10mg. If pain control not adequate in 60 minutes, give additional 5mg, Routine oxyCODONE (Roxicodone) tablet 5-10 mg(Linked Group 3) 5-10 mg, Oral, EVERY 4 HOURS PRN, Starting on Sun06/09/19 at 0847, Until Sun06/10/19 at 171, Pain, moderate pain (4-6), Initial dose 5mg. If pain control not adequate in 60 minutes, give additional 5mg, Routine phenol 1.4% (CHLORASEPTIC) spray 1 spray 1 spray, Oral, EVERY 4 HOURS PRN, Starting on Sun06/04/19 at 2000, Until Sun06/10/19 at 1719, Irritation, Routine Linked Groups Order Group 1: HYDROmorphone (Dilaudid) 10 mcg/mL, BUpivacaine (Marcaine) 0.1% (0.1 mg/mL) (1/10%) in sodium chloride 0.9% 250 mL epidural (CANCELED)Jump to med Epidural, PCEA Dose: 3 mL, PCEA Frequency: Every 20 minutes, Maximum rate for continuous infusion 14 mL per hour Maximum total epidural rate (continuous and PCEA bolus) is 25 mL per hour, Recovery (Recovery-Hospital Unit) And Neuraxial shift total and Settings verification (CANCELED) Epidural, 2 Times Daily- Neuraxial Shift Total, First dose on Sun06/03/19 at 1800, Until Discontinued, Recovery (Recovery-Hospital Unit) Group 2: ondansetron (Zofran) tablet 4-8 mgJump to med 4-8 mg, Oral, EVERY 8 HOURS PRN, Starting on Sun06/04/19 at 0249, Until Sun06/10/19 at 1718, Nausea, Vomiting, If multiple antiemetics are ordered, use ondansetron first. PO Preferred. If patient unable to take PO, may give IV if ordered. May repeat times one in 45 minutes if ineffective. , Routine Or ondansetron (ZOFRAN) injection 4-8 mgJump to med 4-8 mg, Intravenous, EVERY 8 HOURS PRN, Starting on Sun06/04/19 at 0249, Until Sun06/10/19 at 171, Nausea, Start with 4mg and if ineffective in 30 minutes, give an additional 4mg Group 3: oxyCODONE (Roxicodone) tablet 5-10 mgJump to med 5-10 mg, Oral, EVERY 4 HOURS PRN, Starting on Sun06/09/19 at 0847, Until Sun06/10/19 at 1719, Pain, moderate pain (4-6), Initial dose 5mg. If pain control not adequate in 60 minutes, give additional 5mg, Routine Or oxyCODONE (Roxicodone) tablet 10-15 mgJump to med 10-15 mg, Oral, EVERY 4 HOURS PRN, Starting on Sun06/09/19 at 0847, Until Sun06/10/19 at 1719, Pain, severe pain (7-10), Initial dose 10mg. If pain control not adequate in 60 minutes, give additional 5mg, Routine documented in this encounter Care Teams Lead Project Engineer Relationship Specialty Start Date End Date Tr Hendrix DO [address] [place] [address] PCP - General Family Medicine 05/24/17 documented as of this encounter
[2023-11-13 09:24] VITALS: BP 108/52; PULSE 52
--- OUTSIDE RECORDS SUMMARY | 2023-11-13 09:24 | XMS_ITS | Encounter Summary ---
[place] [address] Care Team Providers Care Press Breaker Name Role Phone Tr Hendrix DO Primary Care Provider [phone] Encounter Details Date Type Department Care Team (Late st Contact Info) Description 04/11/2019 Orders [place] [address] Ailyn Wyman RN Iliac artery aneurysm; Abdominal aortic aneurysm (AAA) without rupture; Pre-op testing Social History Tobacco Use Types Packs/Day Years Used Date Smoking Tobacco: Former Cigarettes 1 50 0 07/29/1965 - 07/30/2015 Smokeless Tobacco: Never Sex and Gender Information Value Date Recorded Sex Assigned at Not on file Gender Identity Not on file Sexual Orientation Not on file documented as of this encounter Plan of Treatment Upcoming Encounters Date Type Department Care Team (Late st Contact Info) Description 06/20/2024 10:00 AM EST Office Visit Dermatology at [place] [address] [facility] [place] [address] Mustapha Lemos MD [address] [facility] [place] [address] Scheduled Orders Name Type Priority Associated Diagnoses Orde r Schedule CONVERT OPEN AAA W TUBE GRAFT AFTER FAIL EVG +REPAIR ASSOC ART TRAUMA Procedures Routine One Time for 1 Occurrences starting 04/11/2019 until 04/11/2019 REPAIR ILIAC ARTERY ANEURYSM (CHANCE, HYPOGASTRIC OR EIA) Procedures Routine One Time for 1 Occurrences starting 04/11/2019 until 04/11/2019 documented as of this encounter Visit Diagnoses Diagnosis 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
--- OUTSIDE RECORDS SUMMARY | 2023-11-13 09:24 | XMS_ITS | Encounter Summary ---
Author Organization [facility] [place] [address] Care Team Providers Care Art Museum Docent Name Role Phone Tr Hendrix DO Primary Care Provider [phone] Reason for Visit * Reason Comments Medical Clearance Encounter Details Date Type Department Care Team (Latest Contact Info) Description 04/08/2019 1:00 PM EST Office [place] [address] Maury Duarte MD [facility] [place] [address] Pre-operative exam; Hypertension, unspecified type; Hyperlipidemia, unspecified hyperlipidemia type; Abdominal aortic aneurysm (AAA) without rupture Social [...] Sign Reading Time Taken Comments Blood Pressure 140/72 04/08/2019 12:57 PM EST Pulse 57 04/08/2019 12:57 PM EST Temperature - - Respiratory Rate 20 04/08/2019 12:57 PM EST Oxygen Saturation 97% 04/08/2019 12:57 PM EST Inhaled Oxygen Concentration - - Weight 94.8 kg (209 lb) 04/08/2019 12:57 PM EST Height 175.3 cm (5' 9) 04/08/2019 12:57 PM EST Body Mass Index 30.86 04/08/2019 12:57 PM EST documented in this encounter Progress Notes * Zohreh Bender Josué - 04/08/2019 1:00 PM EST [facility] [place] [address] [address] CARDIOVASCULAR MEDICINE OUTPATIENT CONSULTATION Storm Nolasco [id number] 04/08/2019 REFERRING PROVIDER: Helio Duke CHIEF COMPLAINT: Chief Complaint Patient presents with ??? Medical Clearance PROBLEM LIST Patient Active Problem List Diagnosis ??? Iliac artery aneurysm ??? Hyperlipidemia ??? 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 Duke. Today, he notes he has been feeling out of shape since his was sick and passed a few months ago. He is able to climb 2+ flights of stairs though without chest pain or SOB. He denies any chest pain, SOB, orthopnea, ZI, dizziness or syncope. He drinks 2 glasses of wine a day. Occasional marijuana. Dad had HTN and CHF, unk. If CAD. Mother from lung cancer. 2 brothers are healthy. REVIEW OF SYSTEMS: All others negative except as stated in the HPI. No flowsheet data found. PAST MEDICAL HISTORY: No past medical history on file. SOCIAL HISTORY: Social History Tobacco Use ??? Smoking status: Former Smoker Packs/day: 1.00 Years: 50.00 Pack years: 50.00 Types: Cigarettes Last attempt to quit: 07/30/2015 Years since quittin.6 ??? Smokeless tobacco: Never Used Substance Use Topics ??? Alcohol use: Not on file MEDICATIONS: Current Outpatient Medications Medication Sig Dispense Refill ??? mirabegron 50 mg Tablet Sustained Release 24 hr Take by mouth. ??? terazosin (HYTRIN) 5 mg Capsule Bedtime ??? ibuprofen (ADVIL;MOTRIN) 600 mg Tablet Three times a day ??? atorvastatin (LIPITOR) 80 mg Tablet Daily ??? ketoconazole (NIZORAL) 2 % Shampoo Apply as shampoo once daily (three months supply) 360 mL 3 No current facility-administered medications for this visit. ALLERGIES: Hydrochlorothiazide and Lisinopril PHYSICAL EXAMINATION: Vital Signs: BP 140/72 Pulse 57 Resp 20 Ht 175.3 cm (5' 9) Wt 94.8 kg (209 lb) SpO2 97% BMI 30.86 kg/m?? Exam Details: General: Pleasant 73 y.o. man in no acute distress Eyes: No scleral icterus ENT: Moist mucous membranes Heart: Regular rate and rhythm, normal S1/S2, no murmurs/rubs/gallops appreciated Lungs: Clear to ascultation bilaterally Abdomen: Soft Extremities: No peripheral edema noted. No ulcerations noted. Vessels: No carotid bruits Neuro: No gross abnormalities noted Psych: Alert and oriented 3 x, normal affect DATA PERSONALLY REVIEWED: Last 3 wbc, hgb, hct plt No results for input(s): WBC, HGB, HCT, PLATELET in the last 7068 hours. Last 3 Lytes Recent Labs 02/27/19 1208 08/02/18 1103 CREATININE 0.99 0.99 EKG: none TTE: none Bilateral Arterial Lower Extremity Duplex 02/27/19: Interpretation: ?? Patent right and left popliteal arteries with no evidence of stenosis and normal triphasic Doppler waveforms. No evidence of aneurysm, bilaterally. AAA Duplex 12/25/18: Interpretation: Patent infrarenal abdominal aorta aneurysm measuring approximately 4.9 cm x 4.8 cm; previously 4.7 cm x 4.8 cm on 12/15/2016. There is mural thrombus/laminated plaque noted within the aneurysm sac. The proximal to mid aorta was not clearly visualized due to overlying bowel gas; cannot exclude large diameter here. RIGHT: Patent common iliac artery with an aneurysmal dilation measuring approximately 3.4 cm x 3.1 cm; previously 3.2 cm x 3.1 cm. LEFT: Patent common iliac artery with an aneurysmal dilation measuring approximately 3.3 cm x 3.1 cm; previously 2.8 cm x 2.8 cm. 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 Duke. He is a former smoker though is asymptomatic and is able to perform the equivalent of 4 METS without symptoms. His BP is elevated today and has been at prior visits here. This should be optimized prior to surgery. No indication for additional cardiac testing prior to surgery. He is moderate risk for a high risk (vascular) surgery. RCRI score of 1 for high risk surgery, equivalent of 6% risk of NV, cardiac arrest or . Per VQIrisk calculator, he has a 0.2 probability of in-house post-operative NV. #AAA, bilateral CHANCE aneurysm, L hypogastric aneurysm #HTN #HLD #Former smoker Recommendations: - start amlodipine 5mg today - OK to proceed with elective surgery from a cardiac perspective Discussed with Gerald, addendum to follow. Zohreh Bender MD Freight Separator Cardiovascular Medicine Attending Addendum I have seen the patient and reviewed Dr. Bender' above history and I agree with the details as written. The assessment and plan were formulated in discussion with me and I agree with them as documented. Mr. Nolasco is a 73 year old man with no established CAD but risk factors including HTN, HLD, prior smoker who presents for pre-operative evaluation prior to open intervention for AAA with bilateral CHANCE aneurysms. He is able to achieve >4 METs w/o symptoms and therefore no further cardiac testing pre-procedure is necessary. He has been hypertensive in the office several times. We therefore wi ll start amlodipine 5 mg qd. Can up-titrate as outpatient with goal SBP <120. Continue statin lois-operatively. Maury Duarte MD, MPH Cardiovascular Medicine documented in this encounter Plan of Treatment Upcoming Encounters Date Type Department Care Team (Late st Contact Info) Description 06/20/2024 10:00 AM EST Office Visit Dermatology [facility] [address] [place] [address] Mustapha Lemos MD [address] [facility] [place] [address] documented as of this encounter Visit Diagnoses Diagnosis Pre-operative exam Preoperative examination, unspecified Hypertension, unspecified type Hyperlipidemia, unspecified hyperlipidemia type Abdominal aortic aneurysm (AAA) without rupture documented in this encounter Care Teams Art Museum Docent Relationship Specialty Start Date End Date Tr Hendrix DO [address] [place] [address] PCP - General Family Medicine 05/24/17 documented as of this encounter
--- OUTSIDE RECORDS SUMMARY | 2023-11-13 09:24 | XMS_ITS | Encounter Summary ---
[place] [address] Care Team Providers Care Terminal Manager Name Role Phone Tr Hendrix DO Primary Care Provider [phone] Reason for Visit * Reason Comments Skin Check Encounter Details Date Type Department Care Team (Late st Contact Info) Description 05/27/2019 10:00 AM EST Office Visit Dermatology at [address] [address] Mustapha Lemos MD [address] [facility] DERMATOLOGY [place], [place] [id number] Seborrheic dermatitis; History of malignant melanoma Social History Tobacco Use Types Packs/Day Years Used Date Smoking Tobacco: Former Cigarettes 1 50 0 07/29/1965 - 07/30/2015 Smokeless Tobacco: Never Sex and Gender Information Value Date Recorded Sex Assigned at Not on file Gender Identity Not on file Sexual Orientation Not on file documented as of this encounter Progress Notes * Mustapha Lemos MD - 05/27/2019 10:00 AM EST Problem: 1. Follow-up for yearly skin checkup. 2. History of malignant melanoma, left flank, 0.98 mm Breslow depth, with extension down to deep margin, negative sentinel lymph node biopsy May 2010 3. History of malignant melanoma, right shoulder, June 2010 4. History of going up on [place] with frequent sun exposure 5. Recalcitrant seborrheic dermatitis Terry follows up for his annual check. He has been doing well. Is not noted any new skin lesions ofconcern. He is still fighting his seborrheic dermatitis. The ketoconazole shampoo did not help his face and he did not call back for any further recommendations last year. He states that he we have tried the ketoconazole cream, we have tried Cutar spdb-rsg-uwkopsj lotion he is tried a number of oycw-ona-orbvymn products. We also tried Aclovate cream which seemed to make it worse. Physical examination reveals a pleasant 74-year-old gentleman who has seborrheic dermatitis of the central face along the nasal sidewalls nasolabial folds also on the chin the eyebrow areas and he has some patchy involvement on the presternal chest. Fortunately careful examination of the head and the neck the chest the back the hands the arms forearms thighs and the calves is unremarkable. There is no evidence of recurrent malignant melanoma at the left flank site, nor at the right shoulder site. Assessment plan: History of 2 malignant melanomas, left flank and right shoulder 1. No evidence of recurrence 2. Patient reassured 3. Continue regular yearly skin checkups Seborrheic dermatitis facial 1. Recommend to begin Elidel 1% cream applying on a once to twice daily basis to affected facial and presternal chest sites. Dispense 30 g with 5 refills. We will call that into his [facility] in [place] CC: Tr Hendrix DO documented in this encounter Plan of Treatment Upcoming Encounters Date Type Department Care Team (Late st Contact Info) Description 06/20/2024 10:00 AM EST Office Visit Dermatology at [place] [address] [facility] [place] [address] Mustapha Lemos MD [address] [facility] [place] [address] documented as of this encounter Visit Diagnoses Diagnosis Seborrheic dermatitis Seborrheic dermatitis, unspecified History of malignant melanoma Personal history of malignant melanoma of skin documented in this encounter Care Teams Terminal Manager Relationship Specialty Start Date End Date Tr Hendrix DO [address] [place] [address] PCP - General Family Medicine 05/24/17 documented as of this encounter
--- OUTSIDE RECORDS SUMMARY | 2023-11-13 09:24 | XMS_ITS | Encounter Summary ---
[place] [address] Care Team Providers Care Commercial Tire Service Technician Name Role Phone Tr Hendrix DO Primary Care Provider Encounter Details Date Type Department Care Team (Late st Contact Info) Description 02/27/2019 Orders Only [place] [address] Angelique Queen Social History Tobacco Use Types [...] 10:00 AM EST Office Visit Dermatology at [place] [address] [facility] [place] [address] Mustapha Lemos MD [address] [facility] [place] [address] documented as of this encounter Visit Diagnoses Not on filedocumented in this encounter Care Teams Commercial Tire Service Technician Relationship Specialty Start Date End Date Tr Hendrix DO [address] [place] [address] PCP - General Family Medicine 05/24/17 documented as of this encounter
--- OUTSIDE RECORDS SUMMARY | 2023-11-13 09:24 | XMS_ITS | Encounter Summary ---
[place] [address] Care Team Providers Care Bean Snipper Name Role Phone Tr Hendrix DO Primary Care Provider [phone] Encounter Details Date Type Department Care Team (Latest Contact Info) Description 02/27/2019 11:55 AM EDT Laboratory Appointment Lab [address] [place] [address] Abdominal aortic aneurysm (AAA) without rupture Social [...] 10:00 AM EST Office Visit Dermatology at [place] [address] [place] [address] Mustapha Lemos MD [address] [facility] [place] [address] documented as of this encounter Procedures Procedure Name Priority Date/Time Associated Diagnosis Comments HC CREATININE STAT 02/27/2019 12:08 PM EDT Abdominal aortic aneurysm (AAA) without rupture documented in this encounter Results * Creatinine (02/27/2019 12:08 PM EDT) Creatinine 0.99 0.80 - 1.50 mg/dL [facility] Estimated GFR 75 >=60 mL/min/1.7 3 m?? [facility] Comment: The eGFR was calculated using the CKD-EPI equation. As with all creatinine based estimates of kidney function, eGFR values calculated with the CKD-EPI equation are not accurate in patients with acute kidney failure, extremes of body mass or the acutely ill. [email or web address] [place] eGFR 87 >=60 mL/min/1.7 3 m?? [facility] Comment: The eGFR was calculated using the CKD-EPI equation. As with all creatinine based estimates of kidney function, eGFR values calculated with the CKD-EPI equation are not accurate in patients with acute kidney failure, extremes of body mass or the acutely ill. [email or web address] [place] Blood specimen (specimen) 02/27/2019 12:08 PM EDT 02/27/2019 12:20 PM EDT Narrative Resulting Agency Comment Spec In Lab Lesa Boston MD CHEMISTRY ORDERABLES [facility] [place] [address] documented in this encounter Visit Diagnoses Diagnosis Abdominal aortic aneurysm (AAA) without rupture documented in this encounter Care Teams Bean Snipper Relationship Specialty Start Date End Date Tr Hendrix DO [address] [place] [address] PCP - General Family Medicine 05/24/17 documented as of this encounter
--- OUTSIDE RECORDS SUMMARY | 2023-11-13 09:24 | XMS_ITS | Encounter Summary ---
Author Organization [facility] Address [facility] [place] [address] Care Team Providers Care Risk Control Specialist Name Role Phone Tr Hendrix DO Primary Care Provider [phone] Reason for Visit * Auth/Cert Specialty Diagnoses / Procedures Referred By Contac t Referred To Contact Diagnoses AAA (abdominal aortic aneurysm) AAA . Procedures PRO AAA+TRAUMA REPAIR, OPEN, TUBE PROSTH PRO REANEURYSM/GRFT INS, ILIAC @CONVERSION TO OPEN AAA, USING TUBE GRAFT, FOLLOWING FAILED EVG, PLUS REPAIR OF ASSOC. ARTERIAL TRAUMA (WRVU 35.23) @REPAIR ILIAC ARTERY ANEURYSM (CHANCE, HYPOGASTRIC OR EIA) (WRVU 26.4) Referral ID Status Reason Start Date Expiration Date Visits Re quested Visits Authorized [id number] 1 1 Encounter Details Date Type Department Care Team (Late st Contact Info) Description 06/03/2019 7:30 AM EST - 06/03/2019 2:58 PM EST Surgery [place] [address] Helio Duke MD [facility] [place] [address] @REPAIR ILIAC ARTERY ANEURYSM (CHANCE, HYPOGASTRIC OR EIA) (WRVU 26.4) Social History Tobacco Use Types Packs/Day Years [...] Sign Reading Time Taken Comments Blood Pressure 180/67 06/03/2019 6:22 AM EST Pulse 58 06/03/2019 6:22 AM EST Temperature 36.4 ??C (97.5 ??F) 06/03/2019 6:22 AM ES T Respiratory Rate 16 06/03/2019 6:22 AM EST Oxygen Saturation 96% 06/03/2019 6:22 AM EST Inhaled Oxygen Concentration - - Weight 94.5 kg (208 lb 6.4 oz) 06/03/2019 6:22 A M EST Height - - Body Mass Index 31.37 06/04/2019 12:00 PM EST documented in this encounter Discharge Summaries * Aliyah Romero PA - 06/10/2019 1:24 PM EST Inpatient - Discharge Summary Patient Name: Storm Nolasco Patient Age: 74 y.o. Birthdate: 1945 Admit [...] skin ??? Hypertension History of Presentation: Storm Nolasco is a 73??yo M here??for follow-up??evaluation of [...] was uneventful. He had adequate output following arriola removal and pain well controlled with minimal [...] Provider Department Dept Phone 06/20/2019 9:00 AM [facility] CT 4 CAT Scan at [facility] Arrive at: Laminator Area Please arrive at the Lab 1 Hour and 15 Minutes prior to your scheduled time if your labs need to betaken. 06/20/2019 10:00 AM Helio Duke MD Vascular Surgery at [facility] Arrive at: Laminator Area 3V [phone] 05/31/2020 10:00 AM Mustapha Lemos MD Dermatology at [place] Arrive at: [facility] [address] [phone] Future Orders Complete By Expires CT Angiogram Chest Abdomen Pelvis w Contrast [[id number] Custom] 06/17/2019 12/17/2019 Process Instructions: Scheduling Instructions: Comments: Pararenal AAA and bilateral CHANCE aneurysms s/p repair, known L hypogastric aneurysm. Questions: Creatinine to be performed prior to the study?: Hydration prep required?: Contrast allergy prep required?: Where will study be performed?: [facility] Radiology Referral to Home Health - at DISCHARGE [[id number] CPT(R)] As directed Process Instructions: Scheduling Instructions: Comments: DOCUMENTATION FOR VNA SERVICES (INCLUDING THOSE PATIENTS WITH MEDICARE COVERAGE REQUIRING HOME VNA SERVICES AND/OR HOSPICE SERVICES) PATIENT'S LOCATION: Storm Nolasco [address] [place] [phone] (home) Cell: Telephone Information: Marketing Secretary's Name: Self In discussion with the attending physician, it is certified that this patient is under their care and that they, or a Nurse Practitioner,Clinical Nurse specialist or Physician Tv Production Assistant who is working directly with them, had [...] issues Dressing changes HOME HEALTH CARE AGENCY: [facility] PHONE: [phone] FAX: [phone] Start of care: 24 to 48 hours [...] be obtained from this patient's PCP: Tr Hendrix DO [address] / [facility] [address] All VNA agencies which cover the area of patient's residence have been reviewed, either verbally susana writing, and patient/family have chosen the home health care agency noted Questions: Agency name and contact information: [facility] Patient location post discharge: Home What services [...] Discharge: Patient Instructions You were admitted to [facility] after having your aortic aneurysm repaired with a graft. This all went very well and your postoperative course was uncomplicated. Dr. Duke will want you to be seen in 1 weeks for an incision site check and staple removal with a CT scan. This will be scheduled and sent gerson in the mail. Please call our office [...] For any problems or questions please call [phone] MAYCO Fleming, senior administrative assistant Nurse Clinician For issues on weeknights after 5pm and weekends please call [phone] and ask for the Vascular Fellow hydroelectric production manager. NIHARIKA Harrison 06/10/2019 documented in this encounter Discharge Instructions * Patient Instructions* Aliyah Romero PA - 06/04/2019 1:03 PM EST You were admitted to [facility] after having your aortic aneurysm repaired with a graft. This all went very well and your postoperative course was uncomplicated. Dr. Duke will want you to be seen in 1 weeks for an incision site check and staple removal with a CT scan. This will be scheduled and sent gerson in the mail. Please call our office [...] For any problems or questions please call [phone] MAYCO Fleming, senior administrative assistant Nurse Clinician For issues on weeknights after 5pm and weekends please call [phone] and ask for the Vascular Fellow hydroelectric production manager. documented in this encounter Medications at Time [...] No PDMP/Chart Review Only APS Nurse: Magda Miller RN * Komal Powell RN - 06/10/2019 1:51 PM EST Discharge orders placed. IV removed as ordered. Discharge instructions reviewed with pt including signs and Symptoms of infection, medications, follow up appointment, nutrition and activity. All questions answered and pt discharged to home. * Gissel Oliva, KEVIN - 06/10/2019 10:59 AM EST Plan for [...] DC home with home care services with [facility]. 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 A letter describing our affiliations was reviewed with them and they were educated about their right to choose where referrals are placed. Patient requests referral to [facility] [employer]. PHONE: [phone] FAX: [phone] Expected date of discharge: 06/10/19 Referral routed to the Grade Checker for matching with agency/vendor and to provide any required information. Arden BROWNCM Pager [phone] * Patrick Elias MD - 06/09/2019 8:54 AM EST Acute [...] back. His epidural was removed without complication. ALLY Key RN, have performed the documentation for this encounter in the presence of and acting as a scribe for Dr. Elias. APS Nurse: Ally Farrar RN Fellow:: Nael Cheng MD Attending Physician:: Muddy, Patrick D, MD I performed the above scribed service and agree with the accuracy of the note. PATRICK ELIAS MD * Aliyah Romero PA - 06/09/2019 [...] - 0.04 x10(3)/mcL Assessment & Plan: Storm Nolasco is a 74 year old male with PMH CAD, angina, NC, COPD, smoker now 6 Days Post-Op s/p [...] (H) 0.00 - 0.04 x10(3)/mcL Assessment: Storm Nolasco is a 74 year old male with PMH CAD, angina, NC, COPD, smoker now 5 Days Post-Op s/p open AAA repair, doing well post-operatively. Pain well controlled with PCEA and IV Tylenol. Pt remains NPO with flatus, no BM. Pt denies nausea, vomiting, declining NGT. Plan: - Labs BID - NPO maintain until evidence of bowel function - 1x 20 mg IV Lasix - Epidural IRON ASSORTER, IV Tylenol; APS to wean epidural today and plan to D/C tomorrow - ASA/SQH; hold SQH tomorrow for epidural removal - PT/OT, OOB as tolerated - Encourage IS for atelectasis - Continue home meds - Floor status Jignesh Cordero MD 06/08/2019 * Nicol Dixon - 06/08/2019 9:34 AM EST Nutrition Services - NPO note Storm Nolasco : 1945 AGE: 74 y.o. Patient Active [...] index is 33.58 kg/m??. Labs:Results for STORM NOLASCO ( ) as of 06/08/2019 09:29 Ref. [...] consider alternative means of nutrition support. Nicol Dixon DTR Pager [phone] * Patrick Elias MD - 06/08/2019 8:01 AM EST Acute [...] removein am (please hold am anticoagulation) PATRICK ELIAS MD * Marv Solano RN - 06/07/2019 [...] Sensation intact in bilat LE. A/P: Mr Nolasco has a rash on his back around [...] with attending, Dr Haylie STOREY. * Patrick Elias MD - 06/07/2019 11:54 AM EST Acute [...] beginning of the week Attending Physician:: Patrick Elias MD * Pricilla Quiñones MD - 06/07/2019 [...] no complaints. Pain adequately controlled with epidural IRON ASSORTER. Voiding independently. Passing flatus, no BM. Physical [...] (H) 0.00 - 0.04 x10(3)/mcL Assessment: Storm Nolasco is a 74 year old male with PMH CAD, angina, NC, COPD, smoker now 2 s/p open AAA repair, doing well post-operatively. Pain well controlled with epidural IRON ASSORTER and IV Tylenol. Pt remains NPO with flatus, no BM. Pt denies nausea, vomiting, declining NGT. Will continue to monitor exam, replace NGT as needed. Plan: - Labs BID - NPO maintain until evidence of bowel function - 1x 20 mg IV Lasix - Epidural IRON ASSORTER, IV Tylenol - ASA/SQH - PT/OT, OOB as tolerated - Encourage IS for atelectasis - mIVF d/c - Continue home meds - Floor status Pricilla Quiñones MD 06/07/2019 * Patrick Elias MD - 06/06/2019 9:45 AM EST Acute [...] andacting as a scribe for Dr. Patrick Elias. APS Nurse: Magda Miller RN Attending Physician:: Patrick Elias MD I performed the above scribed service and agree with the accuracy of the note. PATRICK ELIAS MD * Pricilla Quiñones MD - 06/06/2019 [...] no complaints. Pain adequately controlled with epidural IRON ASSORTER. Arriola in place, draining clear/yellow urine.No flatus, no [...] (H) 0.00 - 0.04 x10(3)/mcL Assessment: Storm Nolasco is a 74 year old male with PMH CAD, angina, NC, COPD, smoker now POD2 s/p open AAA repair, doing well post-operatively. Pain well controlled with epidural IRON ASSORTER and IV Tylenol. Pt remains NPO with NGT to wall suction, moderate output and still no evidence of ROBF,will keep NGT in place. Plan: - Labs BID - NPO with NGT, maintain until evidence of bowel function - Discontinue fluids, positive balance - 1x 20 mg IV Lasix - IV metoprolol for afib - Epidural IRON ASSORTER, IV Tylenol - ASA/SQH - PT/OT, OOB [...] on telemetry. Pt wishes to have his arriola catheter removed, asked team multiple times today, [...] no complaints. Pain adequately controlled with epidural IRON ASSORTER. Arriola in place, draining clear/yellow urine.No flatus, no [...] (H) 0.00 - 0.04 x10(3)/mcL Assessment: Storm Nolasco is a 74 year old male with PMH CAD, angina, NC, COPD, smoker now POD2 s/p open AAA repair, doing well post-operatively. Pain well controlled with epidural IRON ASSORTER and IV Tylenol. Pt remains NPO with [...] - Continue mIVF @ 100cc/hr - Epidural IRON ASSORTER, IV Tylenol - ASA/SQH - PT/OT, OOB [...] 6 mL/hr 6 mL/hr New Bag 06/04/2019 DH AN APS EPIDURAL ROUNDIN06/05/2019 9:18 AM Average Numeric [...] Ofirmev until he can take oral acetaminophen. I, ALLY FARRAR RN, have performed the documentation for this encounter in the presence of and acting as a scribe for Dr. Thompson. APS Attending (Jay) Patient seen on daily rounds. I agree with the above assessment and plan. APS Nurse: Ally Farrar RN Attending Physician:: Fredis [...] no complaints. Pain adequately controlled with epidural IRON ASSORTER. Arriola in place, draining clear/yellow urine.Passing flatus, no [...] m?? Lactate, whole blood, send to lab ([facility]) Result Value Ref Range Lactate WB 2.1 [...] x10(3)/mcL Lactate, whole blood, send to lab ([facility]) Result Value Ref Range Lactate WB 1.9 0.5 - 2.2 mmol/L Assessment: Storm Nolasco is a 74 year old male with PMH CAD, angina, NC, COPD, smoker now POD1 s/p open AAA repair, doing well post-operatively. Pain moderately well controlled with epidural IRON ASSORTER. Pt remainsNPO with NGT to wall suction, minimal output and pt denies any nausea, vomiting. No BM yet. Lactateand Hgb reassuring, will continue to monitor labs to guide resuscitation. Plan: - Labs BID - NPO with NGT, keep until evidence of bowel function - Decrease mIVF rate to 100cc/hr - Add IV Tylenol for improved pain control while on IRON ASSORTER - ASA/SQH - PT/OT, OOB as tolerated - Continue home meds Pricilla Quiñones MD 06/04/2019 * Sites, Fredis Lowry MD - 06/04/2019 8:06 AM EST tAcute [...] current epidural regimen until diet is advanced. MAGDA Key RN, have performed the documentation for this encounter in the presence of andacting as a scribe for Dr. Fredis Thompson. APS Attending ([facility]) Patient seen on daily rounds. I agree with the above assessment and plan. APS Nurse: Magda Miller RN Attending Physician:: Fredis Thompson MD * Katina Shaffer RN - 06/04/2019 6:30 AM EST Storm Nolasco had an uneventful and also unrestful night. A/Ox4, VSS, Afebrile. No acute events overnight. No signs or symptoms of distress, denies SOB, numbness or tingling. Pain managed adequately with epidural. Irregular HR at times, sinus tachy, possible bundle branch block, KISS MACHINE OPERATOR reported team aware. NGT to LCWS Voiding adequate amounts, arriola in place. Midline dressing with dried drainage, unchanged * Katina Shaffer RN - 06/04/2019 3:30 AM EST Storm Nolasco arrived to the PCU from the PACU. Oriented to room, morelia initiated, call sagastume within reach, educated on importance of using prior to getting OOB, AVSS, Pt reported his belongings were missing- apparently all belongings were broughthome by son, bed locked in low position, purposeful hourly rounding, bed/chair alarm on. * Alma Dc RN - 06/03/2019 11:24 PM EST 2229 assumed care of patient as no PCU beds are available VSS pain controlled with Epidural Occasionally agitated wanting water Mouth swabs given Able to rest beds being switched to make PCU bed for pnt 0130 report to CONSTRUCTION CONSULTANT * Tariq Fagan MD - 06/03/2019 8:42 PM EST Vascular Surgery Post Op Check Storm Nolasco is a 74 y.o. male status post: [...] PT 2/2 2/2 Assessment and Plan Storm Nolasco is a 74 y.o. male status post open AAA repair, currently in stable condition and recovering well. - pain well controlled - hemodynamically stable - CTM UOP, none recorded in PACU - Q4H CBC and lactate overnight, then Q12H labs - NPO with NGT to low continuous wall suction - Hold SQH overnight - Periop Ancef - Dilaudid IRON ASSORTER Tariq Fagan MD * Capri Marshall RN - 06/03/2019 5:51 PM EST 1715 Pt to PACU # 4. A-line zeroed and flushed. Labs drawn and sent. Cordis in right IJ flushed. Metoprolol given for HR 131. Pt wakes, states name, denies pain. Epidural intact and running @ 6 ml/hr. 1745 Pt Spo2 94% on 4L NC . CXray done. VSS. 1899 VSS Pt denies pain. R forearm # 18 placed. Son in to see patient. 1999Anesthesia to bedside to assess numbness/tingling. Pt reports sensation intact to left lower extremity presently. 2100. Labs sent. Pt wakes easily. Reporting pain 7/10 when moving. Given PCEA button and instructedin using it. VSS Dr. Lazo to bedside. R. IJ catheter removed without complication. 2219 A-line removed without complication. Report to Nagi [...] for Consult: We are seeing Mr. Storm Nolasco at the request of Helio Duke MD for the evaluation of back rash sustained post-op, concern from OR versus additional cause. Recommendations. I have personally reviewed the available records, interviewed, and examined the patient. History of Present Illness: Mr. Storm Nolasco is a 74 y.o. male with past [...] 35.35) performed by Helio Duke MD at [facility] MAIN OR ??? PRO REANEURYSM/GRFT INS, ILIAC Bilateral 06/03/2019 @REPAIR ILIAC ARTERY ANEURYSM (CHANCE, HYPOGASTRIC OR EIA) (WRVU 26.4) performed by Helio Duke MD at [facility] MAIN OR ??? PRO THROMBOENDARTECTMY ABD AORTA N/A 06/03/2019 @ENDARTERECTOMY, ABD. AORTA W OR W/O PATCH GRAFT (WRVU 27.72) performed by Helio Duke MD at [facility] MAIN OR ??? PRO THROMBOENDARTECTMY ILIAC 06/03/2019 @ENDARTERECTOMY, ILIAC W OR W/O PATCH GRAFT (WRVU 24.61) performed by Helio Duke MD at [facility] MAIN OR Medications Prior to Admission: Medications [...] in the Assessment and Plan. Assessment/Plan Storm Nolasco is a 74 y.o. male with past [...] 2 weeks, patient should call dermatology at [phone] to discuss a follow up appointment. Verbal consent was given by patient to obtain and chart the following pictures: Follow-up: Dermatology will sign off for now. Please do not hesitate to contact us if you have any questions or concerns. Impression and Recommendations discussed with primary team on 06/09/19. Patrick Lizama MD Resident in Dermatology [facility] Pager: [phone] Patient seen and evaluated with staff It Trainee: Gabriela Johnson MD Section of Dermatology [facility] Level of Resident Supervision: Direct Supervision (The [...] pain meds ordered patient rating pain 0/10. Arriola cath removed this morning. Patient has had urinary output post arriola removal. WO saw patient this AM regarding reddened, rash [...] Ongoing * Plan of Care - Gissel Balnd OTA - 06/09/2019 2:31 PM EST Occupational Therapy Treatment Note Treatment Number OT: 2 Patient Dx: Storm Nolasco is a 74 y.o. male admitted on [...] 35.35) performed by Helio Duke MD at [facility] MAIN OR ??? PRO REANEURYSM/GRFT INS, ILIAC Bilateral 06/03/2019 ?? @REPAIR ILIAC ARTERY ANEURYSM (CHANCE, HYPOGASTRIC OR EIA) (WRVU 26.4) performed by Helio Duke MD at [facility] MAIN OR ??? PRO THROMBOENDARTECTMY ABD AORTA N/A 06/03/2019 ?? @ENDARTERECTOMY, ABD. AORTA W OR W/O PATCH GRAFT (WRVU 27.72) performed by Helio Duke MD at [facility] MAIN OR ??? PRO THROMBOENDARTECTMY ILIAC ?? 06/03/2019 ?? @ENDARTERECTOMY, ILIAC W OR W/O PATCH GRAFT (WRVU 24.61) performed by Helio Duke MD at [facility] MAIN OR ? Social History: Patient lives alone Home Setup: multi level home w/ 2 DELL, 1 rail, able to live on 1 level, FOS w/ 1 rail up to bedroom, walk in shower w/ seat, no HH shower head or grab bar. DME: None Baseline ADL/Mobility: Independent ?? Precautions/Special Considerations: arriola Interval History: Per MD note 06/09/19: No [...] educated and provided sock aide and LH poultry breeder to promote functional independence while performing LB [...] Occupational Therapy: 32(schm x 2 ) Pager: [phone] NICOLETTE VALDEZ Occupational Therapy Rehabilitation Department * Consult Note - Arpan Mora RN - 06/09/2019 9:19 AM EST Images from the original note were not included. Certified Wound Care Nurse Note Situation: Asked to see Storm Nolasco by nursing for Patient with red weepy [...] sat monitor, oxygen tubing, SCD's/venodynes, IV sites, arriola Other Sites: epidural Nutritional Status Wt Readings [...] Please contact Arpan Mora RN on pager [phone] or the wound care team at [phone] or pager [phone] with skin and wound care concerns or questions. * Plan of Care - Emilia Williamson RN - 06/09/2019 7:59 AM EST Problem: Patient Care Overview Goal: Plan of Care Review Outcome: Ongoing (Interventions Implemented as Appropriate) 06/08/19 2100 06/09/19 0753 Plan of Care Review Progress -- progress toward functional goals is gradual Coping/Psychosocial Plan Of Care Reviewed With patient -- OUTCOME EVALUATION NOTE: OUTCOME SUMMARY: Patient denied pain. Epidural infusing, dressing changed by 2300. Patient passing flatus but no BM.Patient taking small amounts ice chips without problems. Arriola draining adequate urine. Patient slept in naps. [...] Pt voiding adequate amounts of urine via arriola. Ptpassing gas; pt had 0 BMs this [...] (Interventions Implemented as Appropriate) 06/08/19 0535 06/08/19 0800 Plan of Care Review Progress no change [...] Outcome: Ongoing (Interventions Implemented as Appropriate) 06/08/19 0800 06/08/19 1055 Restraint Interventions Safety Promotion/Fall Prevention activity [...] @ 0230. Pain well-controlled, IV Tylenol reordered. Arriola with adequate amounts of yellow urine; however, there is no clear indication as to why it needs to remain in place - having an epidural in place and/or monitoring urine output after IV Lasix is not an indication. Questions and concerns addressed, with continue to monitor. PLAN MOVING FORWARD: Awaiting return of bowel function. Encourage mobility. D/C arriola and epidural. Continue with discharge planning. INDIVIDUALIZED [...] controlled with Epidural, pt not using/needing PCEA. Arriola in place, voiding adequate amounts; discussed with [...] assessment: [current deficits]: Generalized weakness, epidural, lines/pole, arriola, vision aid Assistance [level of assistance required [...] scheduled Tylenol. Epidural bag changed this shift. Arriola remains in place. AUOP. No BM this [...] (Interventions Implemented as Appropriate) 06/05/19 0503 06/06/19 0711 Plan of Care Review Progress progress toward [...] Continues with R upper arm IV, epidural IRON ASSORTER, arriola catheter. PLAN MOVING FORWARD: Neuro assessments as needed, reorientation as needed, monitoring as ordered, I/O as ordered INDIVIDUALIZED FALL PREVENTION INTERVENTIONS: Patient-specific fall risk factors per assessment: [current deficits]: Generalized weakness, confusion, IV tubing, Arriola, monitoring lines Assistance [level of assistance required [...] Handling Outcome: Ongoing (Interventions Implemented as Appropriate) 06/05/19199906/06/1945 06/06/19 0800 Restraint Interventions Safety Promotion/Fall Prevention [...] Control Outcome: Ongoing (Interventions Implemented as Appropriate) 06/06/1974406/06/19 1000 Safety Interventions Isolation Precautions -- standard [...] pt today for OT treatment. Patient unavailable 06/01 being out of room for a procedure. Will follow up as available / appropriate for Occupational Therapy Services. Pager [phone] Gissel MosesRonald Bland, DHALIWAL/Joseph Occupational Therapy Rehabilitation Department * Plan of [...] PCEA. Pulses Palpable, checked Q4 per order. Arriola w/ AUOP. Midline CDI. PLAN MOVING FORWARD: [...] EVALUATION: * Plan of Care - Misha Murray, OT - 06/05/2019 10:40 AM EST Occupational Therapy Evaluation Patient profile: Storm Nolasco is a 74 y.o. male admitted on [...] 35.35) performed by Helio Duke MD at [facility] MAIN OR ??? PRO REANEURYSM/GRFT INS, ILIAC Bilateral 06/03/2019 @REPAIR ILIAC ARTERY ANEURYSM (CHANCE, HYPOGASTRIC OR EIA) (WRVU 26.4) performed by Helio Duke MD at [facility] MAIN OR ??? PRO THROMBOENDARTECTMY ABD AORTA N/A 06/03/2019 @ENDARTERECTOMY, ABD. AORTA W OR W/O PATCH GRAFT (WRVU 27.72) performed by Helio Duke MD at [facility] MAIN OR ??? PRO THROMBOENDARTECTMY ILIAC 06/03/2019 @ENDARTERECTOMY, ILIAC W OR W/O PATCH GRAFT (WRVU 24.61) performed by Helio Duke MD at [facility] MAIN OR Social History: Patient lives alone Home Setup: multi level home w/ 2 DELL, 1 rail, able to live on 1 level, FOS w/ 1 rail up to bedroom, walk in shower w/ seat, no HH shower head or grab bar. DME: None Baseline ADL/Mobility: Independent Precautions/Special Considerations: 2.5LO2 per NC, critical lab drawn at time of eval, DAVIDE arriola, log roll, epidural Subjective: Yeah, i'd like [...] been seen for occupational therapy evaluation. Storm Nolasco presents withthe following performance skill deficits and [...] and measurable assessment of functional outcome. Pager: [phone] Misha Murray OT 06/05/2019 Occupational Therapy Rehabilitation Department * Plan of Care - Silvana Rodriguez PT - 06/05/2019 10:30 AM EST Physical Therapy Evaluation Patient profile: Storm Nolasco is a 74 y.o. male admitted on [...] 35.35) performed by Helio Duke MD at [facility] MAIN OR ??? PRO REANEURYSM/GRFT INS, ILIAC Bilateral 06/03/2019 @REPAIR ILIAC ARTERY ANEURYSM (CHANCE, HYPOGASTRIC OR EIA) (WRVU 26.4) performed by Helio Duke MD at [facility] MAIN OR ??? PRO THROMBOENDARTECTMY ABD AORTA N/A 06/03/2019 @ENDARTERECTOMY, ABD. AORTA W OR W/O PATCH GRAFT (WRVU 27.72) performed by Helio Duke MD at [facility] MAIN OR ??? PRO THROMBOENDARTECTMY ILIAC 06/03/2019 @ENDARTERECTOMY, ILIAC W OR W/O PATCH GRAFT (WRVU 24.61) performed by Helio Duke MD at [facility] MAIN OR Active Non-Hospital Problems Diagnosis ??? [...] Home Setup: multi level home w/ 2 DELL, 1 rail, able to live on 1 level, FOS w/ 1 rail up to bedroom, walk in shower w/ seat, no shower head or grab bar. DME: None Baseline ADL/Mobility: Independent Precautions/Special Considerations: 02,arriola,NGT,midline incision,log roll, epidural Mobility and Positioning Recommendations: [...] mobility recommendations discussed with nursing. Assessment: Storm Nolasco was seen today for physical therapy evaluation. [...] outlinedin this evaluation. Time IN / OUT: 9016-2031 Total Evaluation Minutes, Physical Therapy: 30(Mod complexity eval) Silvana Rodriguez, PT Pager: [phone] Physical Therapy Inpatient Rehabilitation Department * Plan [...] Outcome: Ongoing (Interventions Implemented as Appropriate) 06/04/19199906/05/19 0503 Plan of Care Review Progress -- progress toward functional goals as expected Coping/Psychosocial Plan Of Care Reviewed With patient -- OUTCOME EVALUATION NOTE: OUTCOME SUMMARY: Storm Nolasco had a good night, appeared to be sleeping between care. No acute events overnight. No signs or symptoms of distress, denies SOB, numbness or tingling. A/Ox4, VSS, Afebrile. Remains NPO overnight. Swabs and oral care encouraged. Pain managed adequately with Epidural. Pulses palpable. Remains on 3L NC, for desaturations overnight. Voiding adequate amounts, arriola in place. No flatus, no BM overnight. [...] Control Outcome: Ongoing (Interventions Implemented as Appropriate) 06/05/19502 Safety Interventions Isolation Precautions standard precautions maintained [...] Conf Outcome: Ongoing (Interventions Implemented as Appropriate) 06/05/19502 Interdisciplinary Rounds/Family Conf Participants patient;physician;nursing * Initial [...] Hospitalizations Within the Past 30 Days: No [facility] admits in last 30 days. Anticipated Length Of Stay (If known): Expected Length of Hospitalization: 5 Vs TBD Current Decision-Making Capacity: Patient is A&Ox4 Has current decision making capacity. Advance Care Planning: Full Code No AD in EPIC. If AD's have not been completed SON would be surrogate decision maker per [place] surrogate decision making law. Any patient receiving care at [facility] must abide by [place] law. The hierarchy for surrogate decision making [...] (i) The agent with financial power of associate attorney or a conservator appointed in accordance [...] Lives in 2 story home with 3 DELL , Lives alone in January of this year [address] [facility] [address] Social & Family Supports/Community Resources: Son Extended Emergency Contact Information Primary Emergency Contact: zabrina nolasco Address: [facility] [place] [address] [facility] Mobile Relation: Other Health/Prescription Coverage: Primary Insurance: MEDICARE Secondary Insurance: [employer] [place] Prescription Coverage: Yes Preferred Pharmacy: [id number] - [place], [place] - [address] [place] [address] AT [address] [facility] [address] [facility] [address] Other: none Primary Care Provider: Tr Hendrix DO [phone] Patient/Caregiver Goals of Treatment: Is happy with care Potential Needs for Transition of Care: Rehab/SNF: None anticipated Home Health: None anticipated ( If needed [facility] is preferred) DME: None anticipated Dialysis: [...] assist with transition of care planning. Meme Cornelius RN CM Jeep Driver Pager # [phone] * Plan of Care - Gissel Jaquez [...] dizziness, BP 109/80. Pain has improved slightly. 1756: Labs resulted - BUN 34, Creatinine 2.00. [...] EST Brief Operative Note Patient Name: Storm Nolasco : [id number] MR#: [id number] Case Date: 06/03/2019 Surgeon: Surgeon(s) and Role: [...] Duke MD - 06/03/2019 8:30 AM EST [facility] Operative Note Patient Name: Storm Nolasco : [id number] MR#: [id number] Case Date: 06/03/2019 Surgeon: Surgeon(s) and Role: [...] ABD. AORTA W OR W/O PATCH GRAFT [facility] (N/A) Anesthesia: General Estimated Blood Loss: [...] wasintubated with an ETT. Additional support lines (arriola, central line, arterial line, PIVs) were placed. [...] The proximal anastomosis was then performed in [id number] fashion with running 3-0 prolene. Once the [...] 10:00 AM EST Office Visit Dermatology at [address] [place] [address] Mustapha Lemos MD [address] [facility] [place] [address] documented as of this encounter Procedures Procedure Name Priority Date/Time Associated Diagnosis Comments HC VENIPUNCTURE Routine 06/10/2019 8:53 AM EST HEMOGRAM Routine 06/10/2019 8:53 AM EST DIFFERENTIAL, AUTOMATED Routine 06/10/19 8:53 AM EST HC CBC,PLT & AUTO DIFF Routine 0 8:53 AM EST HC VENIPUNCTURE Routine 06/09/2019 6:39 PM EST HEMOGRAM Routine 06/09/2019 6:39 PM EST DIFFERENTIAL, AUTOMATED Routine 06/09/19 6:39 PM EST HC CBC,PLT & AUTO [...] 6:04 PM EST DIFFERENTIAL, AUTOMATED Routine 06/07/19 6:04 PM EST HC CBC,PLT & AUTO [...] 4:25 AM EST DIFFERENTIAL, AUTOMATED Routine 06/06/19 20 4:25 AM EST HC CBC,PLT & AUTO DIFF Routine 0 4:25 AM EST EKG 12-LEAD Routine 06/06/2019 3:57 AM EST Atrial fibrillation, unspecified type HC VENIPUNCTURE Routine 06/05/2019 6:54 PM EST HEMOGRAM Routine 06/05/2019 6:54 PM EST DIFFERENTIAL, AUTOMATED Routine 06/05/19 20 6:54 PM EST HC CBC,PLT & AUTO [...] 06/03/2019 8:54 AM EST Thromboendartectmy Abd Aorta ([id number]) 06/03/2019 7:55 AM EST AAA Thromboendartectmy Iliac ([id number]) 06/03/2019 7:55 AM EST AAA Reaneurysm/Grft Ins, Abd Aort W/Viscer ([id number]) 06/03/2019 7:55 AM EST AAA Reaneurysm/Grft Ins, Iliac ([id number]) 06/03/2019 7:55 AM EST AAA XR FLUORO [...] the number below. ? Electronically signed by: Patrick Walton [facility] ([phone]), at 06/20/2019 9:59 AM Narrative 06/20/2019 9:59 [...] contact the number below. Helio Duke MD IMHugo CT ORDERABLES * (ABNORMAL) Differential, Automated (06/10/2019 8:53 AM EST) Neutrophils % 83.4 % [facility] Neutr Abs (ANC) 7.36(H) 1.70 - 6.10 x10(3)/mc L [facility] Lymphocytes % 7.7 % [facility] Lymphocytes Abs 0.7(L) 0.9 - 3.2 x10(3)/[facility] Monocytes % 5.6 % [facility] Monocyte Abs 0.5 0.3 - 0.9 x10(3)/[facility] Eosinophils % 1.4 % [facility] Eosinophils Abs 0.1 0.0 - 0.4 x10(3)/[facility] Basophils % 0.2 % [facility] Basophils Abs 0.0 0.0 - 0.1 x10(3)/[facility]OR[facility] Immature Gran % 1.70 % [facility] Comment: Immature granulocytes(IG's)percentage and absolute count will include metamyelocytes, myelocytes, and promyelocytes. Blood smears from CBCs yielding IG's will be scanned manually for concordance. If this scan disagrees with the automated IG or if promyelocytes are noted, a manual differential will be performed. Melanie Gran Abs 0.15(H) 0.00 - 0.04 x10(3)/[facility] Blood specimen (specimen) 06/10/2019 8:53 AM EST 06/10/2019 8:58 AM EST Narrative Resulting Agency Comment Spec In Lab Aliyah BUNDY HEMATOLOGY ORDERA BLES Performing Organization Address City/State/[facility] Co de Phone Number [facility] [place] [address] * (ABNORMAL) Hemogram (06/10/2019 8:53 AM EST) WBC 8.8 4.0 - 9.5 x10(3)/[facility] LABORATORY RBC 2.74(L) 4.58 - 5.54 x10(6)/[facility]ATORY Hemoglobin 9.0(L) 13.7 - 16.5 gm/dL [facility] Hematocrit 26.9(L) 40.5 - 48.5 % [facility] MCV 98.2(H) 82.9 - 93.1 fL [facility] MCH 32.8(H) 27.5 - 32.1 pg [facility] MCHC 33.5 32.0 - 35.7 gm/dL [facility] Platelets 226 145 - 357 x10(3)/[facility] LABORATORY RDWSD 47.8(H) 36.0 - 45.0 fL [facility] RDWCV 13.5 11.4 - 13.8 % [facility] MPV 10.7 7.6 - 12.9 [facility]ATORY nRBC % Auto 0.0 % [facility] nRBC Abs Auto 0.000 0.000 - 0.000 x10(3)/[facility] Blood specimen (specimen) 06/10/2019 8:53 AM EST 06/10/2019 8:58 AM EST Narrative Resulting Agency Comment Spec In Lab Aliyah BUNDY HEMATOLOGY ORDERA BLES [facility] [place] [address] * (ABNORMAL) BMP w/fasting Glucose (06/10/2019 8:53 AM EST) Glucose Fasting 145(H) 65 - 99 mg/dL [facility] [...] of Diabetes Mellitus, Position Statement from the [place] [employer]. ??Diabetes Care, Volume 33, Supplement 1, Apr 2009 BUN 25(H) 10 - 20 mg/dL [facility] Creatinine 1.25 0.80 - 1.50 mg/dL [facility] Sodium 143 135 - 145 mmol/L [facility] Potassium 3.4(L) 3.5 - 5.0 mmol/L [facility] Comment: Please note: ??Patients with WBC >100,000 may have falsely elevated Potassium levels. ??For accurate Potassium quantification in these patients send serum separator tube (gold top) for subsequent determinations. ??Contact the Clinical Chemistry Laboratory if there are any questions. Chloride 107 98 - 107 mmol/L [facility] CO2 25 22 - 31 mmol/L [facility] Anion Gap 11 5 - 15 mmol/L [facility] Calcium 8.4(L) 8.5 - 10.5 mg/dL [facility] Estimated GFR 56(L) >=60 mL/min/1. 73 m?? [facility] Comment: The eGFR was calculated using the CKD-EPI equation. As with all creatinine based estimates of kidney function, eGFR values calculated with the CKD-EPI equation are not accurate in patients with acute kidney failure, extremes of body mass or the acutely ill. [email or web address] eGFR 65 >=60 mL/min/1. 73 m?? [facility] Comment: The eGFR was calculated using the CKD-EPI equation. As with all creatinine based estimates of kidney function, eGFR values calculated with the CKD-EPI equation are not accurate in patients with acute kidney failure, extremes of body mass or the acutely ill. [email or web address] Blood specimen (specimen) 06/10/2019 8:53 AM EST 06/10/2019 8:58 AM EST Narrative Resulting Agency Comment Spec In Lab Helio Duke MD CHEMISTRY ORDERABLES [facility] [place] [address] * (ABNORMAL) Differential, Automated (06/09/2019 6:39 PM EST) Neutrophils % 80.6 % [facility] Neutr Abs (ANC) 6.96(H) 1.70 - 6.10 x10(3)/ L [facility] Lymphocytes % 8.3 % [facility] Lymphocytes Abs 0.7(L) 0.9 - 3.2 x10(3)/[facility]ATORY Monocytes % 6.8 % [facility] Monocyte Abs 0.6 0.3 - 0.9 x10(3)/[facility] Eosinophils % 1.9 % [facility] Eosinophils Abs 0.2 0.0 - 0.4 x10(3)/[facility] Basophils % 0.5 % [facility] Basophils Abs 0.0 0.0 - 0.1 x10(3)/[facility] Immature Gran % 1.90 % [facility] Comment: Immature granulocytes(IG's)percentage and absolute count will include metamyelocytes, myelocytes, and promyelocytes. Blood smears from CBCs yielding IG's will be scanned manually for concordance. If this scan disagrees with the automated IG or if promyelocytes are noted, a manual differential will be performed. Melanie Gran Abs 0.16(H) 0.00 - 0.04 x10(3)/ L [facility] Blood specimen (specimen) 06/09/2019 6:39 PM EST 06/09/2019 6:49 PM EST Narrative Resulting Agency Comment Spec In Lab Aliyah BUNDY HEMATOLOGY ORDERA BLES [facility] [place] [address] * (ABNORMAL) Hemogram (06/09/2019 6:39 PM EST) WBC 8.6 4.0 - 9.5 x10(3)/[facility] LABORATORY RBC 2.72(L) 4.58 - 5.54 x10(6)/[facility]ORY Hemoglobin 8.8(L) 13.7 - 16.5 gm/dL [facility] Hematocrit 26.5(L) 40.5 - 48.5 % [facility] MCV 97.4(H) 82.9 - 93.1 fL [facility] MCH 32.4(H) 27.5 - 32.1 pg [facility] MCHC 33.2 32.0 - 35.7 gm/dL [facility] Platelets 196 145 - 357 x10(3)/[facility] LABORATORY RDWSD 45.8(H) 36.0 - 45.0 [facility]ATORY RDWCV 13.2 11.4 - 13.8 % [facility] MPV 10.7 7.6 - 12.9 [facility] nRBC % Auto 0.0 % [facility] nRBC Abs Auto 0.000 0.000 - 0.000 x10(3)/[facility] Blood specimen (specimen) 06/09/2019 6:39 PM EST 06/09/2019 6:49 PM EST Narrative Resulting Agency Comment Spec In Lab Aliyah BUNDY HEMATOLOGY ORDERA BLES [facility] [place] [address] * (ABNORMAL) BMP w/fasting Glucose (06/09/2019 6:39 PM EST) Glucose Fasting 110(H) 65 - 99 mg/dL [facility] [...] of Diabetes Mellitus, Position Statement from the [place] [employer]. ??Diabetes Care, Volume 33, Supplement 1, Apr 2009 BUN 28(H) 10 - 20 mg/dL [facility] Creatinine 1.10 0.80 - 1.50 mg/dL [facility] Sodium 143 135 - 145 mmol/L [facility] Potassium 3.7 3.5 - 5.0 mmol/L [facility] Comment: Please note: ??Patients with WBC >100,000 may have falsely elevated Potassium levels. ??For accurate Potassium quantification in these patients send serum separator tube ([facility] top) for subsequent determinations. ??Contact the Clinical Chemistry Laboratory if there are any questions. Chloride 106 98 - 107 mmol/L [facility] CO2 27 22 - 31 mmol/L [facility] Anion Gap 10 5 - 15 mmol/L [facility] Calcium 8.4(L) 8.5 - 10.5 mg/dL [facility] Estimated GFR 66 >=60 mL/min/1. 73 m?? [facility] Comment: The eGFR was calculated using the CKD-EPI equation. As with all creatinine based estimates of kidney function, eGFR values calculated with the CKD-EPI equation are not accurate in patients with acute kidney failure, extremes of body mass or the acutely ill. [email or web address] eGFR 76 >=60 mL/min/1. 73 m?? [facility] Comment: The eGFR was calculated using the CKD-EPI equation. As with all creatinine based estimates of kidney function, eGFR values calculated with the CKD-EPI equation are not accurate in patients with acute kidney failure, extremes of body mass or the acutely ill. [email or web address] Blood specimen (specimen) 06/09/2019 6:39 PM EST 06/09/2019 6:49 PM EST Narrative Resulting Agency Comment Spec In Lab Helio Duke MD CHEMISTRY ORDERABLES [facility] [place] [address] * (ABNORMAL) Differential, Automated (06/09/2019 4:40 AM EST) Neutrophils % 77.0 % [facility] Neutr Abs (ANC) 5.70 1.70 - 6.10 x10(3)/ L [facility] Lymphocytes % 11.3 % [facility] Lymphocytes Abs 0.8(L) 0.9 - 3.2 x10(3)/[facility] Monocytes % 7.3 % [facility] Monocyte Abs 0.5 0.3 - 0.9 x10(3)/[facility] Eosinophils % 2.4 % [facility] Eosinophils Abs 0.2 0.0 - 0.4 x10(3)/[facility] Basophils % 0.4 % [facility] Basophils Abs 0.0 0.0 - 0.1 x10(3)/[facility] Immature Gran % 1.60 % [facility] Comment: Immature granulocytes(IG's)percentage and absolute count will include metamyelocytes, myelocytes, and promyelocytes. Blood smears from CBCs yielding IG's will be scanned manually for concordance. If this scan disagrees with the automated IG or if promyelocytes are noted, a manual differential will be performed. Melanie Gran Abs 0.12(H) 0.00 - 0.04 x10(3)/ L [facility] Blood specimen (specimen) 06/09/2019 4:40 AM EST 06/09/2019 4:59 AM EST Narrative Resulting Agency Comment Spec In Lab Aliyah BUNDY HEMATOLOGY ORDERA BLES Performing Organization Address City/[facility]/ZIP [place] [address] * (ABNORMAL) Hemogram (06/09/2019 4:40 AM EST) WBC 7.4 4.0 - 9.5 x10(3)/[facility] RBC 2.43(L) 4.58 - 5.54 x10(6)/[facility] Hemoglobin 8.0(L) 13.7 - 16.5 gm/dL [facility] Hematocrit 24.6(L) 40.5 - 48.5 % [facility] MCV 101.2(H) 82.9 - 93.1 fL [facility] MCH 32.9(H) 27.5 - 32.1 pg [facility] MCHC 32.5 32.0 - 35.7 gm/dL [facility] Platelets 182 145 - 357 x10(3)/[facility] RDWSD 49.5(H) 36.0 - 45.0 [facility] RDWCV 13.3 11.4 - 13.8 % [facility] MPV 10.3 7.6 - 12.9 [facility] nRBC % Auto 0.0 % [facility] nRBC Abs Auto 0.000 0.000 - 0.000 x10(3)/[facility] Blood specimen (specimen) 06/09/2019 4:40 AM EST 06/09/2019 4:59 AM EST Narrative Resulting Agency Comment Spec In Lab Aliyah BUNDY HEMATOLOGY ORDERA BLES Performing Organization Address City/[facility]/ZIP Co de Phone Number [facility] [place] [address] * (ABNORMAL) BMP w/fasting Glucose (06/09/2019 4:40 AM EST) Glucose Fasting 87 65 - 99 mg/dL [facility] [...] of Diabetes Mellitus, Position Statement from the [place] [employer]. ??Diabetes Care, Volume 33, Supplement 1, Apr 2009 BUN 29(H) 10 - 20 mg/dL [facility] Creatinine 1.18 0.80 - 1.50 mg/dL [facility] Sodium 145 135 - 145 mmol/L [facility] Potassium 3.8 3.5 - 5.0 mmol/L [facility] Comment: Please note: ??Patients with WBC >100,000 may have falsely elevated Potassium levels. ??For accurate Potassium quantification in these patients send serum separator tube (gold top) for subsequent determinations. ??Contact the Clinical Chemistry Laboratory if there are any questions. Chloride 107 98 - 107 mmol/L [facility] CO2 26 22 - 31 mmol/L [facility] Anion Gap 12 5 - 15 mmol/L [facility] Calcium 8.2(L) 8.5 - 10.5 mg/dL [facility] Estimated GFR 60 >=60 mL/min/1. 73 m?? [facility] Comment: The eGFR was calculated using the CKD-EPI equation. As with all creatinine based estimates of kidney function, eGFR values calculated with the CKD-EPI equation are not accurate in patients with acute kidney failure, extremes of body mass or the acutely ill. [email or web address] eGFR 70 >=60 mL/min/1. 73 m?? [facility] Comment: The eGFR was calculated using the CKD-EPI equation. As with all creatinine based estimates of kidney function, eGFR values calculated with the CKD-EPI equation are not accurate in patients with acute kidney failure, extremes of body mass or the acutely ill. [email or web address] Blood specimen (specimen) 06/09/2019 4:40 AM EST 06/09/2019 4:59 AM EST Narrative Resulting Agency Comment Spec In Lab Helio Duke MD CHEMISTRY ORDERABLES [facility] [place] [address] * (ABNORMAL) Differential, Automated (06/08/2019 6:17 PM EST) Neutrophils % 78.9 % [facility] Neutr Abs (ANC) 6.27(H) 1.70 - 6.10 x10(3)/mc L [facility] Lymphocytes % 9.9 % [facility] Lymphocytes Abs 0.8(L) 0.9 - 3.2 x10(3)/mc L [facility] Monocytes % 6.9 % [facility] Monocyte Abs 0.6 0.3 - 0.9 x10(3)/mc L [facility] Eosinophils % 2.6 % [facility] Eosinophils Abs 0.2 0.0 - 0.4 x10(3)/mc L [facility] Basophils % 0.4 % [facility] Basophils Abs 0.0 0.0 - 0.1 x10(3)/mc L [facility] Immature Gran % 1.30 % [facility] Comment: Immature granulocytes(IG's)percentage and absolute count will include metamyelocytes, myelocytes, and promyelocytes. Blood smears from CBCs yielding IG's will be scanned manually for concordance. If this scan disagrees with the automated IG or if promyelocytes are noted, a manual differential will be performed. Melanie Gran Abs 0.10(H) 0.00 - 0.04 x10(3)/mc L [facility] Blood specimen (specimen) 06/08/2019 6:17 PM EST 06/08/2019 6:28 PM EST Narrative Resulting Agency Comment Spec In Lab Aliyah BUNDY HEMATOLOGY ORDERA BLES [facility] [place] [address] * (ABNORMAL) Hemogram (06/08/2019 6:17 PM EST) WBC 8.0 4.0 - 9.5 x10(3)/[facility] LABOR[facility] RBC 2.62(L) 4.58 - 5.54 x10(6)/[facility] Hemoglobin 8.4(L) 13.7 - 16.5 gm/dL [facility] Hematocrit 26.4(L) 40.5 - 48.5 % [facility] MCV 100.8(H) 82.9 - 93.1 [facility] MCH 32.1 27.5 - 32.1 pg [facility] MCHC 31.8(L) 32.0 - 35.7 gm/dL [facility] Platelets 179 145 - 357 x10(3)/[facility] RDWSD 49.1(H) 36.0 - 45.0 [facility] RDWCV 13.3 11.4 - 13.8 % [facility] MPV 10.4 7.6 - 12.9 [facility] nRBC % Auto 0.0 % [facility] nRBC Abs Auto 0.000 0.000 - 0.000 x10(3)/[facility] Blood specimen (specimen) 06/08/2019 6:17 PM EST 06/08/2019 6:28 PM EST Narrative Resulting Agency Comment Spec In Lab Aliyah BUNDY HEMATOLOGY ORDERA BLES [facility] [place] [address] * (ABNORMAL) BMP w/fasting Glucose (06/08/2019 6:17 PM EST) Glucose Fasting 89 65 - 99 mg/dL [facility] [...] of Diabetes Mellitus, Position Statement from the [place] [employer]. ??Diabetes Care, Volume 33, Supplement 1, Apr 2009 BUN 30(H) 10 - 20 mg/dL [facility] Creatinine 1.31 0.80 - 1.50 mg/dL [facility] Sodium 146(H) 135 - 145 mmol/L [facility] Potassium 4.0 3.5 - 5.0 mmol/L [facility] Comment: Please note: ??Patients with WBC >100,000 may have falsely elevated Potassium levels. ??For accurate Potassium quantification in these patients send serum separator tube (gold top) for subsequent determinations. ??Contact the Clinical Chemistry Laboratory if there are any questions. Chloride 108(H) 98 - 107 mmol/L [facility] CO2 28 22 - 31 mmol/L [facility] Anion Gap 10 5 - 15 mmol/L [facility] Calcium 8.4(L) 8.5 - 10.5 mg/dL [facility] Estimated GFR 53(L) >=60 mL/min/1. 73 m?? [facility] [facility] Comment: The eGFR was calculated using the CKD-EPI equation. As with all creatinine based estimates of kidney function, eGFR values calculated with the CKD-EPI equation are not accurate in patients with acute kidney failure, extremes of body mass or the acutely ill. [email or web address] eGFR 62 >=60 mL/min/1. 73 m?? [facility] Comment: The eGFR was calculated using the CKD-EPI equation. As with all creatinine based estimates of kidney function, eGFR values calculated with the CKD-EPI equation are not accurate in patients with acute kidney failure, extremes of body mass or the acutely ill. [email or web address] Blood specimen (specimen) 06/08/2019 6:17 PM EST 06/08/2019 6:28 PM EST Narrative Resulting Agency Comment Spec In Lab Helio Duke MD CHEMISTRY ORDERABLES Performing Organization Address City/State/[facility] Co de Phone Number [facility] [place] [address] * (ABNORMAL) Differential, Automated (06/08/2019 7:36 AM EST) Neutrophils % 77.4 % [facility] Neutr Abs (ANC) 5.93 1.70 - 6.10 x10(3)/mc L [facility] Lymphocytes % 10.7 % [facility] Lymphocytes Abs 0.8(L) 0.9 - 3.2 x10(3)/mc L [facility] Monocytes % 7.6 % [facility] Monocyte Abs 0.6 0.3 - 0.9 x10(3)/mc L [facility] Eosinophils % 2.9 % [facility] Eosinophils Abs 0.2 0.0 - 0.4 x10(3)/[facility] Basophils % 0.4 % [facility] Basophils Abs 0.0 0.0 - 0.1 x10(3)/[facility] Immature Gran % 1.00 % [facility] Comment: Immature granulocytes(IG's)percentage and absolute count will include metamyelocytes, myelocytes, and promyelocytes. Blood smears from CBCs yielding IG's will be scanned manually for concordance. If this scan disagrees with the automated IG or if promyelocytes are noted, a manual differential will be performed. Melanie Gran Abs 0.08(H) 0.00 - 0.04 x10(3)/[facility] Blood specimen (specimen) 06/08/2019 7:36 AM EST 06/08/2019 8:04 AM EST Narrative Resulting Agency Comment Spec In Lab Aliyah BUNDY HEMATOLOGY ORDERA BLES [facility] [place] [address] * (ABNORMAL) Hemogram (06/08/2019 7:36 AM EST) WBC 7.7 4.0 - 9.5 x10(3)/[facility] LABORATORY RBC 2.55(L) 4.58 - 5.54 x10(6)/[facility] Hemoglobin 8.4(L) 13.7 - 16.5 gm/dL [facility] Hematocrit 25.9(L) 40.5 - 48.5 % [facility] MCV 101.6(H) 82.9 - 93.1 fL [facility] MCH 32.9(H) 27.5 - 32.1 pg [facility] MCHC 32.4 32.0 - 35.7 gm/dL [facility] Platelets 168 145 - 357 x10(3)/[facility] LABORATORY RDWSD 50.0(H) 36.0 - 45.0 fL [facility] RDWCV 13.5 11.4 - 13.8 % [facility] MPV 10.4 7.6 - 12.9 fL [facility] nRBC % Auto 0.0 % [facility] nRBC Abs Auto 0.000 0.000 - 0.000 x10(3)/mcL [facility] Blood specimen (specimen) 06/08/2019 7:36 AM EST 06/08/2019 8:04 AM EST Narrative Resulting Agency Comment Spec In Lab Aliyah BUNDY HEMATOLOGY ORDERA BLES [facility] [place] [address] * (ABNORMAL) BMP w/fasting Glucose (06/08/2019 7:36 AM EST) Glucose Fasting 85 65 - 99 mg/dL [facility] [...] of Diabetes Mellitus, Position Statement from the [employer]. ??Diabetes Care, Volume 33, Supplement 1, Apr 2009 BUN 29(H) 10 - 20 mg/dL [facility] Creatinine 1.25 0.80 - 1.50 mg/dL [facility] Sodium 145 135 - 145 mmol/L [facility] Potassium 4.1 3.5 - 5.0 mmol/L [facility] Comment: Please note: ??Patients with WBC >100,000 may have falsely elevated Potassium levels. ??For accurate Potassium quantification in these patients send serum separator tube (gold top) for subsequent determinations. ??Contact the Clinical Chemistry Laboratory if there are any questions. Chloride 108(H) 98 - 107 mmol/L [facility] CO2 27 22 - 31 mmol/L [facility] Anion Gap 10 5 - 15 mmol/L [facility] Calcium 8.1(L) 8.5 - 10.5 mg/dL [facility] Estimated GFR 56(L) >=60 mL/min/1. 73 m?? [facility] Comment: The eGFR was calculated using the CKD-EPI equation. As with all creatinine based estimates of kidney function, eGFR values calculated with the CKD-EPI equation are not accurate in patients with acute kidney failure, extremes of body mass or the acutely ill. [email or web address] eGFR 65 >=60 mL/min/1. 73 m?? [facility] Comment: The eGFR was calculated using the CKD-EPI equation. As with all creatinine based estimates of kidney function, eGFR values calculated with the CKD-EPI equation are not accurate in patients with acute kidney failure, extremes of body mass or the acutely ill. [email or web address] Blood specimen (specimen) 06/08/2019 7:36 AM EST 06/08/2019 8:03 AM EST Narrative Resulting Agency Comment Spec In Lab Helio Duke MD CHEMISTRY ORDERABLES [facility] [place] [address] * (ABNORMAL) Differential, Automated (06/07/2019 6:04 PM EST) Neutrophils % 80.5 % [facility] Neutr Abs (ANC) 6.56(H) 1.70 - 6.10 x10(3)/mc L [facility] Lymphocytes % 9.0 % [facility] Lymphocytes Abs 0.7(L) 0.9 - 3.2 x10(3)/[facility] Monocytes % 7.2 % [facility] Monocyte Abs 0.6 0.3 - 0.9 x10(3)/[facility] Eosinophils % 2.3 % [facility] Eosinophils Abs 0.2 0.0 - 0.4 x10(3)/[facility] Basophils % 0.4 % [facility] Basophils Abs 0.0 0.0 - 0.1 x10(3)/[facility] Immature Gran % 0.60 % [facility] Comment: Immature granulocytes(IG's)percentage and absolute count will include metamyelocytes, myelocytes, and promyelocytes. Blood smears from CBCs yielding IG's will be scanned manually for concordance. If this scan disagrees with the automated IG or if promyelocytes are noted, a manual differential will be performed. Melanie Gran Abs 0.05(H) 0.00 - 0.04 x10(3)/[facility] Blood specimen (specimen) 06/07/2019 6:04 PM EST 06/07/2019 6:12 PM EST Narrative Resulting Agency Comment Spec In Lab Aliyah BUNDY HEMATOLOGY ORDERA BLES Performing Organization Address City/State/[facility] Co de Phone Number [facility] [place] [address] * (ABNORMAL) Hemogram (06/07/2019 6:04 PM EST) WBC 8.2 4.0 - 9.5 x10(3)/[facility] LABORATORY RBC 2.61(L) 4.58 - 5.54 x10(6)/[facility] Hemoglobin 8.5(L) 13.7 - 16.5 gm/dL [facility] Hematocrit 26.6(L) 40.5 - 48.5 % [facility] MCV 101.9(H) 82.9 - 93.1 fL [facility] MCH 32.6(H) 27.5 - 32.1 pg [facility] MCHC 32.0 32.0 - 35.7 gm/dL [facility] Platelets 165 145 - 357 x10(3)/[facility] LABORATORY RDWSD 49.9(H) 36.0 - 45.0 fL [facility] RDWCV 13.6 11.4 - 13.8 % [facility] MPV 10.4 7.6 - 12.9 fL [facility] nRBC % Auto 0.0 % [facility] nRBC Abs Auto 0.000 0.000 - 0.000 x10(3)/[facility] Blood specimen (specimen) 06/07/2019 6:04 PM EST 06/07/2019 6:12 PM EST Narrative Resulting Agency Comment Spec In Lab Aliyah BUNDY HEMATOLOGY ORDERA BLES [facility] [place] [address] * (ABNORMAL) BMP w/fasting Glucose (06/07/2019 6:04 PM EST) Glucose Fasting 84 65 - 99 mg/dL [facility] [...] of Diabetes Mellitus, Position Statement from the [place] [employer]. ??Diabetes Care, Volume 33, Supplement 1, Apr 2009 BUN 27(H) 10 - 20 mg/dL [facility] Creatinine 1.35 0.80 - 1.50 mg/dL [facility] Sodium 147(H) 135 - 145 mmol/L [facility] Potassium 4.1 3.5 - 5.0 mmol/L [facility] Comment: Please note: ??Patients with WBC >100,000 may have falsely elevated Potassium levels. ??For accurate Potassium quantification in these patients send serum separator tube (gold top) for subsequent determinations. ??Contact the Clinical Chemistry Laboratory if there are any questions. Chloride 108(H) 98 - 107 mmol/L [facility] CO2 26 22 - 31 mmol/L [facility] Anion Gap 13 5 - 15 mmol/L [facility] Calcium 8.3(L) 8.5 - 10.5 mg/dL [facility] Estimated GFR 51(L) >=60 mL/min/1. 73 m?? [facility] Comment: The eGFR was calculated using the CKD-EPI equation. As with all creatinine based estimates of kidney function, eGFR values calculated with the CKD-EPI equation are not accurate in patients with acute kidney failure, extremes of body mass or the acutely ill. [email or web address] eGFR 60 >=60 mL/min/1. 73 m?? [facility] Comment: The eGFR was calculated using the CKD-EPI equation. As with all creatinine based estimates of kidney function, eGFR values calculated with the CKD-EPI equation are not accurate in patients with acute kidney failure, extremes of body mass or the acutely ill. [email or web address] Blood specimen (specimen) 06/07/2019 6:04 PM EST 06/07/2019 6:11 PM EST Narrative Resulting Agency Comment Spec In Lab Helio Duke MD CHEMISTRY ORDER[place] [address] * XR Abdomen Flat & Upright (06/07/2019 11:14 AM EST) Anatomical Region Laterality Modality Abdomen N/A Digital Radiogra phy Impressions 06/08/2019 8:06 AM EST Resolution of ileus Thank you for letting us participate in the care of this patient. For questions regarding this report, please contact the number below. ? Narrative 06/08/2019 8:06 AM EST EXAMINATION: XR [...] the number below. Helio Duke MD IMG DX ORDERABLES * (ABNORMAL) Differential, Automated (06/07/2019 7:31 AM EST) Neutrophils % 82.1 % [facility] Neutr Abs (ANC) 7.65(H) 1.70 - 6.10 x10(3)/ L [facility] Lymphocytes % 7.0 % [facility] Lymphocytes Abs 0.6(L) 0.9 - 3.2 x10(3)/[facility] Monocytes % 8.2 % [facility] Monocyte Abs 0.8 0.3 - 0.9 x10(3)/[facility] Eosinophils % 1.9 % [facility] Eosinophils Abs 0.2 0.0 - 0.4 x10(3)/[facility] Basophils % 0.3 % [facility] Basophils Abs 0.0 0.0 - 0.1 x10(3)/[facility] Immature Gran % 0.50 % [facility] Comment: Immature granulocytes(IG's)percentage and absolute count will include metamyelocytes, myelocytes, and promyelocytes. Blood smears from CBCs yielding IG's will be scanned manually for concordance. If this scan disagrees with the automated IG or if promyelocytes are noted, a manual differential will be performed. Melanie Gran Abs 0.05(H) 0.00 - 0.04 x10(3)/ L [facility] Blood specimen (specimen) 06/07/2019 7:31 AM EST 06/07/2019 7:46 AM EST Narrative Resulting Agency Comment Spec In Lab Aliyah BUNDY HEMATOLOGY ORDERA BLES [facility] [place] [address] * (ABNORMAL) Hemogram (06/07/2019 7:31 AM EST) WBC 9.3 4.0 - 9.5 x10(3)/[facility] LABORATORY RBC 2.53(L) 4.58 - 5.54 x10(6)/[facility] Hemoglobin 8.2(L) 13.7 - 16.5 gm/dL [facility] Hematocrit 25.8(L) 40.5 - 48.5 % [facility] MCV 102.0(H) 82.9 - 93.1 fL [facility] MCH 32.4(H) 27.5 - 32.1 pg [facility] MCHC 31.8(L) 32.0 - 35.7 gm/dL [facility] Platelets 139(L) 145 - 357 x10(3)/[facility] LABORATORY RDWSD 50.4(H) 36.0 - 45.0 [facility] LABORATORY RDWCV 13.5 11.4 - 13.8 % [facility] MPV 10.2 7.6 - 12.9 [facility]ORY nRBC % Auto 0.0 % [facility] nRBC Abs Auto 0.000 0.000 - 0.000 x10(3)/[facility] Blood specimen (specimen) 06/07/2019 7:31 AM EST 06/07/2019 7:46 AM EST Narrative Resulting Agency Comment Spec In Lab Aliyah BUNDY HEMATOLOGY ORDERA BLES [facility] [place] [address] * (ABNORMAL) BMP w/fasting Glucose (06/07/2019 7:31 AM EST) Glucose Fasting 88 65 - 99 mg/dL [facility] [...] of Diabetes Mellitus, Position Statement from the [place] [employer]. ??Diabetes Care, Volume 33, Supplement 1, Apr 2009 BUN 29(H) 10 - 20 mg/dL [facility] Creatinine 1.30 0.80 - 1.50 mg/dL [facility] Sodium 144 135 - 145 mmol/L [facility] Potassium 4.2 3.5 - 5.0 mmol/L [facility] Comment: Please note: ??Patients with WBC >100,000 may have falsely elevated Potassium levels. ??For accurate Potassium quantification in these patients send serum separator tube (gold top) for subsequent determinations. ??Contact the Clinical Chemistry Laboratory if there are any questions. Chloride 110(H) 98 - 107 mmol/L [facility] CO2 24 22 - 31 mmol/L [facility] Anion Gap 10 5 - 15 mmol/L [facility] Calcium 8.0(L) 8.5 - 10.5 mg/dL [facility] Estimated GFR 54(L) >=60 mL/min/1. 73 m?? [facility] Comment: The eGFR was calculated using the CKD-EPI equation. As with all creatinine based estimates of kidney function, eGFR values calculated with the CKD-EPI equation are not accurate in patients with acute kidney failure, extremes of body mass or the acutely ill. [email or web address] eGFR 62 >=60 mL/min/1. 73 m?? [facility] Comment: The eGFR was calculated using the CKD-EPI equation. As with all creatinine based estimates of kidney function, eGFR values calculated with the CKD-EPI equation are not accurate in patients with acute kidney failure, extremes of body mass or the acutely ill. [email or web address] Blood specimen (specimen) 06/07/2019 7:31 AM EST 06/07/2019 7:46 AM EST Narrative Resulting Agency Comment Spec In Lab Helio Duke MD CHEMISTRY ORDERABLES [facility] [place] [address] * (ABNORMAL) Differential, Automated (06/06/2019 6:49 PM EST) Neutrophils % 82.0 % [facility] Neutr Abs (ANC) 8.04(H) 1.70 - 6.10 x10(3)/ L [facility] Lymphocytes % 8.5 % [facility] Lymphocytes Abs 0.8(L) 0.9 - 3.2 x10(3)/[facility] LABORATORY Monocytes % 7.3 % [facility] Monocyte Abs 0.7 0.3 - 0.9 x10(3)/[facility] LABORATORY Eosinophils % 1.3 % [facility] Eosinophils Abs 0.1 0.0 - 0.4 x10(3)/[facility] LABORATORY Basophils % 0.3 % [facility] Basophils Abs 0.0 0.0 - 0.1 x10(3)/ L [facility] Immature Gran % 0.60 % [facility] Comment: Immature granulocytes(IG's)percentage and absolute count will include metamyelocytes, myelocytes, and promyelocytes. Blood smears from CBCs yielding IG's will be scanned manually for concordance. If this scan disagrees with the automated IG or if promyelocytes are noted, a manual differential will be performed. Melanie Gran Abs 0.06(H) 0.00 - 0.04 x10(3)/mc L [facility] Blood specimen (specimen) 06/06/2019 6:49 PM EST 06/06/2019 7:11 PM EST Narrative Resulting Agency Comment Spec In Lab Pricilla Quiñones MD HEMATOLOGY ORDER DAVE [facility] [place] [address] * (ABNORMAL) Hemogram (06/06/2019 6:49 PM EST) WBC 9.8(H) 4.0 - 9.5 x10(3)/[facility] LABORATORY RBC 2.70(L) 4.58 - 5.54 x10(6)/[facility]ORY Hemoglobin 8.8(L) 13.7 - 16.5 gm/dL [facility] Hematocrit 27.3(L) 40.5 - 48.5 % [facility] MCV 101.1(H) 82.9 - 93.1 fL [facility] MCH 32.6(H) 27.5 - 32.1 pg [facility] MCHC 32.2 32.0 - 35.7 gm/dL [facility] Platelets 155 145 - 357 x10(3)/[facility] LABORATORY RDWSD 50.1(H) 36.0 - 45.0 [facility] LABORATORY RDWCV 13.8 11.4 - 13.8 % [facility] MPV 10.3 7.6 - 12.9 [facility]ORY nRBC % Auto 0.0 % [facility] nRBC Abs Auto 0.000 0.000 - 0.000 x10(3)/[facility] Blood specimen (specimen) 06/06/2019 6:49 PM EST 06/06/2019 7:11 PM EST Narrative Resulting Agency Comment Spec In Lab Pricilla Quiñones MD HEMATOLOGY ORDER DAVE [facility] [place] [address] * (ABNORMAL) BMP w/fasting Glucose (06/06/2019 6:49 PM EST) Glucose Fasting 94 65 - 99 mg/dL [facility] [...] of Diabetes Mellitus, Position Statement from the [place] [employer]. ??Diabetes Care, Volume 33, Supplement 1, Apr 2009 BUN 27(H) 10 - 20 mg/dL [facility] Creatinine 1.49 0.80 - 1.50 mg/dL [facility] Sodium 137 135 - 145 mmol/L [facility] Potassium 4.2 3.5 - 5.0 mmol/L [facility] Comment: Please note: ??Patients with WBC >100,000 may have falsely elevated Potassium levels. ??For accurate Potassium quantification in these patients send serum separator tube (gold top) for subsequent determinations. ??Contact the Clinical Chemistry Laboratory if there are any questions. Chloride 104 98 - 107 mmol/L [facility] CO2 26 22 - 31 mmol/L [facility] Anion Gap 7 5 - 15 mmol/L [facility] Calcium 7.8(L) 8.5 - 10.5 mg/dL [facility] Estimated GFR 46(L) >=60 mL/min/1. 73 m?? [facility] Comment: The eGFR was calculated using the CKD-EPI equation. As with all creatinine based estimates of kidney function, eGFR values calculated with the CKD-EPI equation are not accurate in patients with acute kidney failure, extremes of body mass or the acutely ill. [email or web address] eGFR 53(L) >=60 mL/min/1. 73 m?? [facility] Comment: The eGFR was calculated using the CKD-EPI equation. As with all creatinine based estimates of kidney function, eGFR values calculated with the CKD-EPI equation are not accurate in patients with acute kidney failure, extremes of body mass or the acutely ill. [email or web address] Blood specimen (specimen) 06/06/2019 6:49 PM EST 06/06/2019 7:11 PM EST Narrative Resulting Agency Comment Spec In Lab Helio Duke MD CHEMISTRY ORDERABLES Performing Organization Address City/State/[facility] Co de Phone Number [facility] [place] [address] * XR Abdomen Flat & Upright (06/06/2019 [...] the number below. ? Electronically signed by: Ran Zambrano [facility] ([phone]), at 06/06/2019 4:14 PM Narrative 06/06/2019 4:14 PM EST EXAMINATION: XR [...] number below. Electronically signed by: Ran Zambrano [facility]([phone]), at 06/06/2019 4:14 PM Helio Duke MD [...] below. ? Electronically signed by: Berto Cunningham [facility] ([phone]), at 06/06/2019 2:54 PM Narrative 06/06/2019 2:54 [...] number below. Electronically signed by: Berto Cunningham [facility]([phone]), at 06/06/2019 2:54 PM Helio Duke MD IMG DX ORDERABLES * (ABNORMAL) Differential, Automated (06/06/2019 12:47 PM EST) Neutrophils % 84.5 % [facility] Neutr Abs (ANC) 9.35(H) 1.70 - 6.10 x10(3)/ L [facility] Lymphocytes % 6.7 % [facility] Lymphocytes Abs 0.7(L) 0.9 - 3.2 x10(3)/[facility] LABORATORY Monocytes % 7.0 % [facility] Monocyte Abs 0.8 0.3 - 0.9 x10(3)/[facility] LABORATORY Eosinophils % 1.0 % [facility] Eosinophils Abs 0.1 0.0 - 0.4 x10(3)/[facility] LABORATORY Basophils % 0.3 % [facility] Basophils Abs 0.0 0.0 - 0.1 x10(3)/[facility] LABORATORY Immature Gran % 0.50 % [facility] Comment: Immature granulocytes(IG's)percentage and absolute count will include metamyelocytes, myelocytes, and promyelocytes. Blood smears from CBCs yielding IG's will be scanned manually for concordance. If this scan disagrees with the automated IG or if promyelocytes are noted, a manual differential will be performed. Melanie Gran Abs 0.06(H) 0.00 - 0.04 x10(3)/ L [facility] Blood specimen (specimen) 06/06/2019 12:47 PM EST 06/06/2019 12:58 PM EST Narrative Resulting Agency Comment Spec In Lab Pricilla Quiñones MD HEMATOLOGY ORDER DAVE [facility] [place] [address] * (ABNORMAL) Hemogram (06/06/2019 12:47 PM EST) WBC 11.1(H) 4.0 - 9.5 x10(3)/[facility] LABORATORY RBC 2.66(L) 4.58 - 5.54 x10(6)/[facility] LABORATORY Hemoglobin 8.8(L) 13.7 - 16.5 gm/dL [facility] Hematocrit 26.7(L) 40.5 - 48.5 % [facility] MCV 100.4(H) 82.9 - 93.1 [facility] LABORATORY MCH 33.1(H) 27.5 - 32.1 pg [facility] MCHC 33.0 32.0 - 35.7 gm/dL [facility] Platelets 139(L) 145 - 357 x10(3)/[facility] LABORATORY RDWSD 49.3(H) 36.0 - 45.0 [facility] LAB[facility]ATORY RDWCV 13.5 11.4 - 13.8 % [facility] MPV 10.5 7.6 - 12.9 [facility] LAB[facility] nRBC % Auto 0.0 % [facility] nRBC Abs Auto 0.000 0.000 - 0.000 x10(3)/[facility] LABORATORY Blood specimen (specimen) 06/06/2019 12:47 PM EST 06/06/2019 12:58 PM EST Narrative Resulting Agency Comment Spec In Lab Pricilla Quiñones MD HEMATOLOGY ORDER DAVE [facility] [place] [address] * (ABNORMAL) Basic Metabolic Panel (non-fasting) (06/06/2019 12:47 PM EST) Glucose Lvl 100 65 - 199 mg/dL [facility] Comment:Diabetes: >=200 mg/d L plus symptoms BUN 24(H) 10 - 20 mg/dL [facility] Creatinine 1.50 0.80 - 1.50 mg/dL [facility] Sodium 143 135 - 145 mmol/L [facility] Potassium 4.3 3.5 - 5.0 mmol/L [facility] Comment: Please note: ??Patients with WBC >100,000 may have falsely elevated Potassium levels. ??For accurate Potassium quantification in these patients send serum separator tube (gold top) for subsequent determinations. ??Contact the Clinical Chemistry Laboratory if there are any questions. Chloride 111(H) 98 - 107 mmol/L [facility] CO2 25 22 - 31 mmol/L [facility] Anion Gap 7 5 - 15 mmol/L [facility] Calcium 7.8(L) 8.5 - 10.5 mg/dL [facility] Estimated GFR 45(L) >=60 mL/min/1. 73 m?? [facility] Comment: The eGFR was calculated using the CKD-EPI equation. As with all creatinine based estimates of kidney function, eGFR values calculated with the CKD-EPI equation are not accurate in patients with acute kidney failure, extremes of body mass or the acutely ill. [email or web address] eGFR 52(L) >=60 mL/min/1. 73 m?? [facility] Comment: The eGFR was calculated using the CKD-EPI equation. As with all creatinine based estimates of kidney function, eGFR values calculated with the CKD-EPI equation are not accurate in patients with acute kidney failure, extremes of body mass or the acutely ill. [email or web address] Blood specimen (specimen) 06/06/2019 12:47 PM EST 06/06/2019 1:00 PM EST Narrative Resulting Agency Comment Spec In Lab Helio Duke MD CHEMISTRY ORDERABLES [facility] [place] [address] * (ABNORMAL) Differential, Automated (06/06/2019 4:25 AM EST) Neutrophils % 85.6 % [facility] Neutr Abs (ANC) 8.19(H) 1.70 - 6.10 x10(3)/mc L [facility] Lymphocytes % 5.9 % [facility] Lymphocytes Abs 0.6(L) 0.9 - 3.2 x10(3)/ L [facility] Monocytes % 6.7 % [facility] Monocyte Abs 0.6 0.3 - 0.9 x10(3)/ L [facility] Eosinophils % 0.8 % [facility] Eosinophils Abs 0.1 0.0 - 0.4 x10(3)/[facility] LABORATORY Basophils % 0.2 % [facility] Basophils Abs 0.0 0.0 - 0.1 x10(3)/ L [facility] Immature Gran % 0.80 % [facility] Comment: Immature granulocytes(IG's)percentage and absolute count will include metamyelocytes, myelocytes, and promyelocytes. Blood smears from CBCs yielding IG's will be scanned manually for concordance. If this scan disagrees with the automated IG or if promyelocytes are noted, a manual differential will be performed. Melanie Gran Abs 0.08(H) 0.00 - 0.04 x10(3)/mc L [facility] Blood specimen (specimen) 06/06/2019 4:25 AM EST 06/06/2019 4:32 AM EST Narrative Resulting Agency Comment Spec In Lab Pricilla A Leinweber MD HEMATOLOGY ORDER DAVE Performing Organization Address City/[facility]/ZIP Co de Phone Number [facility] [place] [address] * (ABNORMAL) Hemogram (06/06/2019 4:25 AM EST) WBC 9.6(H) 4.0 - 9.5 x10(3)/[facility] LABORATORY RBC 2.72(L) 4.58 - 5.54 x10(6)/[facility] LABORATORY Hemoglobin 8.9(L) 13.7 - 16.5 gm/dL [facility] Hematocrit 27.8(L) 40.5 - 48.5 % [facility] MCV 102.2(H) 82.9 - 93.1 fL [facility] MCH 32.7(H) 27.5 - 32.1 pg [facility] MCHC 32.0 32.0 - 35.7 gm/dL [facility] Platelets 114(L) 145 - 357 x10(3)/[facility] LABORATORY RDWSD 50.2(H) 36.0 - 45.0 [facility] LABORATORY RDWCV 13.4 11.4 - 13.8 % [facility] MPV 9.8 7.6 - 12.9 [facility] LABORATORY nRBC % Auto 0.0 % [facility] nRBC Abs Auto 0.000 0.000 - 0.000 x10(3)/[facility] LABORATORY Blood specimen (specimen) 06/06/2019 4:25 AM EST 06/06/2019 4:32 AM EST Narrative Resulting Agency Comment Spec In Lab Pricilla Quiñones MD HEMATOLOGY ORDER DAVE Performing Organization Address City/[facility]/ZIP Co de Phone Number [facility] [place] [address] * (ABNORMAL) BMP w/fasting Glucose (06/06/2019 4:25 AM EST) Glucose Fasting 93 65 - 99 mg/dL [facility] [...] of Diabetes Mellitus, Position Statement from the [employer]. ??Diabetes Care, Volume 33, Supplement 1, Apr 2009 BUN 22(H) 10 - 20 mg/dL [facility] Creatinine 1.33 0.80 - 1.50 mg/dL [facility] Sodium 143 135 - 145 mmol/L [facility] Potassium 4.2 3.5 - 5.0 mmol/L [facility] Comment: Please note: ??Patients with WBC >100,000 may have falsely elevated Potassium levels. ??For accurate Potassium quantification in these patients send serum separator tube (gold top) for subsequent determinations. ??Contact the Clinical Chemistry Laboratory if there are any questions. Chloride 109(H) 98 - 107 mmol/L [facility] CO2 23 22 - 31 mmol/L [facility] Anion Gap 11 5 - 15 mmol/L [facility] Calcium 7.9(L) 8.5 - 10.5 mg/dL [facility] Estimated GFR 52(L) >=60 mL/min/1. 73 m?? [facility] Comment: The eGFR was calculated using the CKD-EPI equation. As with all creatinine based estimates of kidney function, eGFR values calculated with the CKD-EPI equation are not accurate in patients with acute kidney failure, extremes of body mass or the acutely ill. [email or web address] [email or web address] eGFR 61 >=60 mL/min/1. 73 m?? [facility] Comment: The eGFR was calculated using the CKD-EPI equation. As with all creatinine based estimates of kidney function, eGFR values calculated with the CKD-EPI equation are not accurate in patients with acute kidney failure, extremes of body mass or the acutely ill. [email or web address] Blood specimen (specimen) 06/06/2019 4:25 AM EST 06/06/2019 4:32 AM EST Narrative Resulting Agency Comment Spec In Lab Helio Duke MD CHEMISTRY ORDERABLES Performing Organization Address [facility] Co de Phone Number [facility] [place] [address] * EKG 12 Lead (06/06/2019 3:57 AM EST) Ventricular rate 138 BPM MUSE SYSTEM QRS Duration 140 ms MUSE SYSTEM Q-T Interval 348 ms MUSE SYSTEM QTC Calculated (Bezet) 527 ms MUSE SYSTEM Calculated R [place] 34 degrees MUSE SYSTEM Calculated T [place] -167 degrees MUSE SYSTEM INTERPRETATION Atrial fibrillation with rapid ventricular response Left bundle branch block Abnormal ECG When compared with ECG of 04-JUN-2019 20:09, Atrial fibrillation has replaced Sinus rhythm Confirmed by MD EVELIN, MANDIE ([id number]) on 06/06/2019 8:47:17 AM MUSE SYSTEM 06/06/2019 3:57 AM EST 06/06/2019 8:47 AM EST Helio Duke MD ECG ORDERABLES Performing Organization Address City/[facility] Co de Phone Number MUSE SYSTEM * (ABNORMAL) Differential, Automated (06/05/2019 6:54 PM EST) Neutrophils % 88.1 % [facility] Neutr Abs (ANC) 10.75(H) 1.70 - 6.10 x10(3)/mc L [facility] Lymphocytes % 4.0 % [facility] Lymphocytes Abs 0.5(L) 0.9 - 3.2 x10(3)/[facility] LABORATORY Monocytes % 6.2 % [facility] Monocyte Abs 0.8 0.3 - 0.9 x10(3)/[facility] LABORATORY Eosinophils % 0.5 % [facility] Eosinophils Abs 0.1 0.0 - 0.4 x10(3)/[facility] LABORATORY Basophils % 0.1 % [facility] Basophils Abs 0.0 0.0 - 0.1 x10(3)/[facility] LABORATORY Immature Gran % 1.10 % [facility] Comment: Immature granulocytes(IG's)percentage and absolute count will include metamyelocytes, myelocytes, and promyelocytes. Blood smears from CBCs yielding IG's will be scanned manually for concordance. If this scan disagrees with the automated IG or if promyelocytes are noted, a manual differential will be performed. Melanie Gran Abs 0.14(H) 0.00 - 0.04 x10(3)/[facility]ORATORY Blood specimen (specimen) 06/05/2019 6:54 PM EST 06/05/2019 7:00 PM EST Narrative Resulting Agency Comment Spec In Lab Pricilla Quiñones MD HEMATOLOGY ORDER DAVE Performing Organization Address City/State/[facility] Co de Phone Number [facility] [place] [address] * (ABNORMAL) Hemogram (06/05/2019 6:54 PM EST) WBC 12.2(H) 4.0 - 9.5 x10(3)/[facility] LABORATORY RBC 3.03(L) 4.58 - 5.54 x10(6)/[facility] LABORATORY Hemoglobin 9.8(L) 13.7 - 16.5 gm/dL [facility] Hematocrit 29.9(L) 40.5 - 48.5 % [facility] MCV 98.7(H) 82.9 - 93.1 fL [facility] MCH 32.3(H) 27.5 - 32.1 pg [facility] MCHC 32.8 32.0 - 35.7 gm/dL [facility] Platelets 118(L) 145 - 357 x10(3)/[facility] LABORATORY RDWSD 48.8(H) 36.0 - 45.0 [facility] LABORATORY RDWCV 13.5 11.4 - 13.8 % [facility] MPV 10.4 7.6 - 12.9 [facility] LABORATORY nRBC % Auto 0.0 % [facility] nRBC Abs Auto 0.000 0.000 - 0.000 x10(3)/[facility] LABORATORY Blood specimen (specimen) 06/05/2019 6:54 PM EST 06/05/2019 7:00 PM EST Narrative Resulting Agency Comment Spec In Lab Pricilla Quiñones MD HEMATOLOGY ORDER DAVE [facility] [place] [address] * (ABNORMAL) BMP w/fasting Glucose (06/05/2019 6:54 PM EST) Glucose Fasting 103(H) 65 - 99 mg/dL [facility] [...] of Diabetes Mellitus, Position Statement from the [place] [employer]. ??Diabetes Care, Volume 33, Supplement 1, Apr 2009 BUN 26(H) 10 - 20 mg/dL [facility] Creatinine 1.62(H) 0.80 - 1.50 mg/dL [facility] Sodium 142 135 - 145 mmol/L [facility] Potassium 4.4 3.5 - 5.0 mmol/L [facility] Comment: Please note: ??Patients with WBC >100,000 may have falsely elevated Potassium levels. ??For accurate Potassium quantification in these patients send serum separator tube (gold top) for subsequent determinations. ??Contact the Clinical Chemistry Laboratory if there are any questions. Chloride 111(H) 98 - 107 mmol/L [facility] CO2 22 22 - 31 mmol/L [facility] Anion Gap 9 5 - 15 mmol/L [facility] Calcium 8.1(L) 8.5 - 10.5 mg/dL [facility] Estimated GFR 41(L) >=60 mL/min/1. 73 m?? [facility] Comment: The eGFR was calculated using the CKD-EPI equation. As with all creatinine based estimates of kidney function, eGFR values calculated with the CKD-EPI equation are not accurate in patients with acute kidney failure, extremes of body mass or the acutely ill. [email or web address] [email or web address] eGFR 48(L) >=60 mL/min/1. 73 m?? [facility] Comment: The eGFR was calculated using the CKD-EPI equation. As with all creatinine based estimates of kidney function, eGFR values calculated with the CKD-EPI equation are not accurate in patients with acute kidney failure, extremes of body mass or the acutely ill. [email or web address] Blood specimen (specimen) 06/05/2019 6:54 PM EST 06/05/2019 7:00 PM EST Narrative Resulting Agency Comment Spec In Lab Helio Duke MD CHEMISTRY ORDERABLES [facility] [place] [address] * XR Abdomen Flat & Upright (06/05/2019 [...] the number below. Helio Duke MD IMG DX ORDERABLES * (ABNORMAL) Differential, Automated (06/05/2019 10:21 AM EST) Neutrophils % 88.5 % [facility] Neutr Abs (ANC) 12.01(H) 1.70 - 6.10 x10(3)/mc L [facility] Lymphocytes % 3.8 % [facility] Lymphocytes Abs 0.5(L) 0.9 - 3.2 x10(3)/mc L [facility] Monocytes % 6.6 % [facility] Monocyte Abs 0.9 0.3 - 0.9 x10(3)/mc L [facility] Eosinophils % 0.2 % [facility] Eosinophils Abs 0.0 0.0 - 0.4 x10(3)/[facility] LABORATORY Basophils % 0.2 % [facility] Basophils Abs 0.0 0.0 - 0.1 x10(3)/[facility] LABORATORY Immature Gran % 0.70 % [facility] Comment: Immature granulocytes(IG's)percentage and absolute count will include metamyelocytes, myelocytes, and promyelocytes. Blood smears from CBCs yielding IG's will be scanned manually for concordance. If this scan disagrees with the automated IG or if promyelocytes are noted, a manual differential will be performed. Melanie Gran Abs 0.10(H) 0.00 - 0.04 x10(3)/[facility] LABORATORY Blood specimen (specimen) 06/05/2019 10:21 AM EST 06/05/2019 10:27 AM EST Narrative Resulting Agency Comment Spec In Lab Pricilla Quiñones MD HEMATOLOGY ORDER DAVE [facility] [place] [address] * (ABNORMAL) Hemogram (06/05/2019 10:21 AM EST) WBC 13.6(H) 4.0 - 9.5 x10(3)/[facility] LABORATORY RBC 3.12(L) 4.58 - 5.54 x10(6)/[facility]ORATORY Hemoglobin 10.1(L) 13.7 - 16.5 gm/dL [facility] Hematocrit 30.8(L) 40.5 - 48.5 % [facility] MCV 98.7(H) 82.9 - 93.1 fL [facility] MCH 32.4(H) 27.5 - 32.1 pg [facility] MCHC 32.8 32.0 - 35.7 gm/dL [facility] Platelets 107(L) 145 - 357 x10(3)/[facility] LABORATORY RDWSD 49.3(H) 36.0 - 45.0 [facility] LABORATORY RDWCV 13.5 11.4 - 13.8 % [facility] MPV 10.5 7.6 - 12.9 [facility] LABORATORY nRBC % Auto 0.0 % [facility] nRBC Abs Auto 0.000 0.000 - 0.000 x10(3)/[facility] LABORATORY Blood specimen (specimen) 06/05/2019 10:21 AM EST 06/05/2019 10:27 AM EST Narrative Resulting Agency Comment Spec In Lab Pricilla Quiñones MD HEMATOLOGY ORDER DAVE [facility] [place] [address] * (ABNORMAL) BMP w/fasting Glucose (06/05/2019 10:21 AM EST) Glucose Fasting 109(H) 65 - 99 mg/dL [facility] [...] of Diabetes Mellitus, Position Statement from the [place] [employer]. ??Diabetes Care, Volume 33, Supplement 1, Apr 2009 BUN 28(H) 10 - 20 mg/dL [facility] Creatinine 1.70(H) 0.80 - 1.50 mg/dL [facility] Sodium 142 135 - 145 mmol/L [facility] Potassium 4.8 3.5 - 5.0 mmol/L [facility] Comment: Please note: ??Patients with WBC >100,000 may have falsely elevated Potassium levels. ??For accurate Potassium quantification in these patients send serum separator tube (gold top) for subsequent determinations. ??Contact the Clinical Chemistry Laboratory if there are any questions. Chloride 112(H) 98 - 107 mmol/L [facility] CO2 24 22 - 31 mmol/L [facility] Anion Gap 6 5 - 15 mmol/L [facility] Calcium 7.8(L) 8.5 - 10.5 mg/dL [facility] Estimated GFR 39(L) >=60 mL/min/1. 73 m?? [facility] Comment: The eGFR was calculated using the CKD-EPI equation. As with all creatinine based estimates of kidney function, eGFR values calculated with the CKD-EPI equation are not accurate in patients with acute kidney failure, extremes of body mass or the acutely ill. [email or web address] eGFR 45(L) >=60 mL/min/1. 73 m?? [facility] Comment: The eGFR was calculated using the CKD-EPI equation. As with all creatinine based estimates of kidney function, eGFR values calculated with the CKD-EPI equation are not accurate in patients with acute kidney failure, extremes of body mass or the acutely ill. [email or web address] Blood specimen (specimen) 06/05/2019 10:21 AM EST 06/05/2019 10:27 AM EST Narrative Resulting Agency Comment Spec In Lab Helio Duke MD CHEMISTRY ORDERABLES [facility] [place] [address] * POCT Glucose (06/05/2019 12:57 AM EST) POC Glucose 101 65 - 199 mg/dL [facility] Comment: Supplemental ranges: <140 mg/dL before meals <180 mg/dL all other times of the day Blood specimen (specimen) 06/05/2019 12:57 AM EST 06/05/2019 12:57 AM EST Helio Duke MD POINT OF CARE TEST O RDERABLES Performing Organization Address City/[facility]/ZIP Co de Phone Number [facility] [place] [address] * Magnesium (06/04/2019 11:07 PM EST) Magnesium 0.70 0.69 - 1.07 mmol/L [facility] Blood specimen (specimen) 06/04/2019 11:07 PM EST 06/04/2019 11:12 PM EST Narrative Resulting Agency Comment Spec In Lab Helio Duke MD CHEMISTRY ORDERABLES Performing Organization Address [facility] Co de Phone Number [facility] [place] [address] * (ABNORMAL) Basic Metabolic Panel (non-fasting) (06/04/2019 11:07 PM EST) Glucose Lvl 102 65 - 199 mg/dL [facility] Comment:Diabetes: >=200 mg/d L plus symptoms BUN 30(H) 10 - 20 mg/dL [facility] Creatinine 1.87(H) 0.80 - 1.50 mg/dL [facility] Sodium 142 135 - 145 mmol/L [facility] Potassium 4.6 3.5 - 5.0 mmol/L [facility] Comment: Please note: ??Patients with WBC >100,000 may have falsely elevated Potassium levels. ??For accurate Potassium quantification in these patients send serum separator tube (gold top) for subsequent determinations. ??Contact the Clinical Chemistry Laboratory if there are any questions. Chloride 111(H) 98 - 107 mmol/L [facility] CO2 22 22 - 31 mmol/L [facility] Anion Gap 9 5 - 15 mmol/L [facility] Calcium 8.0(L) 8.5 - 10.5 mg/dL [facility] Estimated GFR 35(L) >=60 mL/min/1. 73 m?? [facility] Comment: The eGFR was calculated using the CKD-EPI equation. As with all creatinine based estimates of kidney function, eGFR values calculated with the CKD-EPI equation are not accurate in patients with acute kidney failure, extremes of body mass or the acutely ill. [email or web address] eGFR 40(L) >=60 mL/min/1. 73 m?? [facility] Comment: The eGFR was calculated using the CKD-EPI equation. As with all creatinine based estimates of kidney function, eGFR values calculated with the CKD-EPI equation are not accurate in patients with acute kidney failure, extremes of body mass or the acutely ill. [email or web address] Blood specimen (specimen) 06/04/2019 11:07 PM EST 06/04/2019 11:12 PM EST Narrative Resulting Agency Comment Spec In Lab Helio Duke MD CHEMISTRY ORDERABLES Performing Organization Address City/[facility]/ZIP Co de Phone Number [facility] [place] [address] * POCT Glucose (06/04/2019 11:05 PM EST) POC Glucose 87 65 - 199 mg/dL [facility] Comment: Supplemental ranges: <140 mg/dL before meals <180 mg/dL all other times of the day Blood specimen (specimen) 06/04/2019 11:05 PM EST 06/04/2019 11:05 PM EST Helio Duke MD POINT OF CARE TEST O RDERABLES [facility] [place] [address] * POCT Glucose (06/04/2019 9:05 PM EST) POC Glucose 122 65 - 199 mg/dL [facility] Comment: Supplemental ranges: <140 mg/dL before meals <180 mg/dL all other times of the day Blood specimen (specimen) 06/04/2019 9:05 PM EST 06/04/2019 9:05 PM EST Helio Duke MD POINT OF CARE TEST O RDERABLES Performing Organization Address [facility] de Phone Number [facility] [place] [address] * EKG 12 Lead (06/04/2019 8:09 PM EST) Ventricular rate 101 BPM MUSE SYSTEM Atrial Rate 101 BPM MUSE SYSTEM P-R Interval 182 ms MUSE SYSTEM QRS Duration 154 ms MUSE SYSTEM Q-T Interval 382 ms MUSE SYSTEM QTC Calculated (Bezet) 495 ms MUSE SYSTEM Calculated P [place] 43 degrees MUSE SYSTEM Calculated R [place] 10 degrees MUSE SYSTEM Calculated T [place] 171 degrees MUSE SYSTEM INTERPRETATION Sinus tachycardia Left bundle branch block Abnormal ECG When compared with ECG of 04-JUN-2019 18:31, No significant change was found Confirmed by MD EVELIN, MANDIE ([id number]) on 06/05/2019 8:01:39 AM MUSE SYSTEM 06/04/2019 8:09 PM EST 06/05/2019 8:01 AM EST Helio Duke MD ECG ORDERABLES Performing Organization Address [facility] de Phone Number MUSE SYSTEM * POCT Glucose (06/04/2019 6:36 PM EST) Pathologist [facility] POC Glucose 116 65 - 199 mg/dL [facility] Comment: Supplemental ranges: <140 mg/dL before meals <180 mg/dL all other times of the day Blood specimen (specimen) 06/04/2019 6:36 PM EST 06/04/2019 6:36 PM EST Helio Duke MD POINT OF CARE TEST O RDERABLES Performing Organization Address [facility] Co de Phone Number [facility] [place] [address] * EKG 12 Lead (06/04/2019 6:31 PM EST) Ventricular rate 100 BPM MUSE SYSTEM Atrial Rate 100 BPM MUSE SYSTEM P-R Interval 172 ms MUSE SYSTEM QRS Duration 148 ms MUSE SYSTEM Q-T Interval 388 ms MUSE SYSTEM QTC Calculated (Bezet) 500 ms MUSE SYSTEM Calculated P [place] 29 degrees MUSE SYSTEM Calculated R [place] 23 degrees MUSE SYSTEM Calculated T [place] -29 degrees MUSE SYSTEM INTERPRETATION Normal sinus rhythm Left bundle branch block Abnormal ECG When compared with ECG of 03-JUN-2019 17:12, No significant change was found Confirmed by MD EVELIN, MANDIE ([id number]) on 06/05/2019 8:01:28 AM MUSE SYSTEM 06/04/2019 6:31 PM EST 06/05/2019 8:01 AM EST Helio Duke MD ECG ORDERABLES Performing Organization Address [facility] Co de Phone Number MUSE SYSTEM * Electrolytes, urine, random (06/04/2019 6:19 PM EST) U Sodium 82 mmol/L [facility] U Potassium 58 mmol/L [facility] U Chloride 85 mmol/L [facility] Urine specimen (specimen) 06/04/2019 6:19 PM EST 06/04/2019 8:54 PM EST Narrative Resulting Agency Comment Spec In Lab Helio Duke MD URINE ORDERABLES Performing Organization Address City/[facility] Co de Phone Number [facility] [place] [address] * Creatinine, urine, random (06/04/2019 6:19 PM EST) U Creatinine 110 mg/dL [facility] Urine specimen (specimen) 06/04/2019 6:19 PM EST 06/04/2019 8:54 PM EST Narrative Resulting Agency Comment Spec In Lab Helio Duke MD URINE ORDERABLES Performing Organization Address City/[facility]/ZIP Co de Phone Number [facility] [place] [address] * (ABNORMAL) Differential, Automated (06/04/2019 5:56 PM EST) Neutrophils % 88.3 % [facility] Neutr Abs (ANC) 14.26(H) 1.70 - 6.10 x10(3)/ L [facility] Lymphocytes % 4.6 % [facility] Lymphocytes Abs 0.7(L) 0.9 - 3.2 x10(3)/ L [facility] Monocytes % 6.4 % [facility] Monocyte Abs 1.0(H) 0.3 - 0.9 x10(3)/[facility] LABORATORY Eosinophils % 0.0 % [facility] Eosinophils Abs 0.0 0.0 - 0.4 x10(3)/[facility] LABORATORY Basophils % 0.1 % [facility] Basophils Abs 0.0 0.0 - 0.1 x10(3)/[facility] LABORATORY Immature Gran % 0.60 % [facility] Comment: Immature granulocytes(IG's)percentage and absolute count will include metamyelocytes, myelocytes, and promyelocytes. Blood smears from CBCs yielding IG's will be scanned manually for concordance. If this scan disagrees with the automated IG or if promyelocytes are noted, a manual differential will be performed. Melanie Gran Abs 0.09(H) 0.00 - 0.04 x10(3)/ L [facility] Blood specimen (specimen) 06/04/2019 5:56 PM EST 06/04/2019 6:16 PM EST Narrative Resulting Agency Comment Spec In Lab Pricilla Quiñones MD HEMATOLOGY ORDER DAVE Performing Organization Address City/[facility]/Z[place] [address] * (ABNORMAL) Hemogram (06/04/2019 5:56 PM EST) WBC 16.2(H) 4.0 - 9.5 x10(3)/[facility] LABORATORY RBC 3.66(L) 4.58 - 5.54 x10(6)/[facility] LABORATORY Hemoglobin 11.8(L) 13.7 - 16.5 gm/dL [facility] Hematocrit 36.4(L) 40.5 - 48.5 % [facility] MCV 99.5(H) 82.9 - 93.1 fL [facility] MCH 32.2(H) 27.5 - 32.1 pg [facility] MCHC 32.4 32.0 - 35.7 gm/dL [facility] Platelets 118(L) 145 - 357 x10(3)/[facility] LABORATORY RDWSD 48.3(H) 36.0 - 45.0 [facility] LABORATORY RDWCV 13.3 11.4 - 13.8 % [facility] MPV 10.4 7.6 - 12.9 fL [facility] nRBC % Auto 0.0 % [facility] nRBC Abs Auto 0.000 0.000 - 0.000 x10(3)/[facility] LABORATORY Blood specimen (specimen) 06/04/2019 5:56 PM EST 06/04/2019 6:16 PM EST Narrative Resulting Agency Comment Spec In Lab Pricilla Quiñones MD HEMATOLOGY ORDER DAVE [facility] [place] [address] * (ABNORMAL) BMP w/fasting Glucose (06/04/2019 5:56 PM EST) Glucose Fasting 121(H) 65 - 99 mg/dL [facility] [...] of Diabetes Mellitus, Position Statement from the [employer]. ??Diabetes Care, Volume 33, Supplement 1, Apr 2009 BUN 34(H) 10 - 20 mg/dL [facility] Creatinine 2.00(H) 0.80 - 1.50 mg/dL [facility] Sodium 142 135 - 145 mmol/L [facility] Potassium 5.0 3.5 - 5.0 mmol/L [facility] Comment: Please note: ??Patients with WBC >100,000 may have falsely elevated Potassium levels. ??For accurate Potassium quantification in these patients send serum separator tube (gold top) for subsequent determinations. ??Contact the Clinical Chemistry Laboratory if there are any questions. Chloride 111(H) 98 - 107 mmol/L [facility] CO2 22 22 - 31 mmol/L [facility] Anion Gap 9 5 - 15 mmol/L [facility] Calcium 8.0(L) 8.5 - 10.5 mg/dL [facility] Estimated GFR 32(L) >=60 mL/min/1. 73 m?? [facility] Comment: The eGFR was calculated using the CKD-EPI equation. As with all creatinine based estimates of kidney function, eGFR values calculated with the CKD-EPI equation are not accurate in patients with acute kidney failure, extremes of body mass or the acutely ill. [email or web address] eGFR 37(L) >=60 mL/min/1. 73 m?? [facility] Comment: The eGFR was calculated using the CKD-EPI equation. As with all creatinine based estimates of kidney function, eGFR values calculated with the CKD-EPI equation are not accurate in patients with acute kidney failure, extremes of body mass or the acutely ill. [email or web address] Blood specimen (specimen) 06/04/2019 5:56 PM EST 06/04/2019 6:16 PM EST Narrative Resulting Agency Comment Spec In Lab Helio Duke MD CHEMISTRY ORDERABLES [facility] [place] [address] * (ABNORMAL) BMP w/fasting Glucose (06/04/2019 10:13 AM EST) Glucose Fasting 121(H) 65 - 99 mg/dL [facility] [...] of Diabetes Mellitus, Position Statement from the [employer]. ??Diabetes Care, Volume 33, Supplement 1, Apr 2009 BUN 31(H) 10 - 20 mg/dL [facility] Comment:result rechecked-es Creatinine 2.10(H) 0.80 - 1.50 mg/dL [facility] Sodium 141 135 - 145 mmol/L [facility] Potassium 5.3(H) 3.5 - 5.0 mmol/L [facility] Comment: Please note: ??Patients with WBC >100,000 may have falsely elevated Potassium levels. ??For accurate Potassium quantification in these patients send serum separator tube (gold top) for subsequent determinations. ??Contact the Clinical Chemistry Laboratory if there are any questions. Chloride 110(H) 98 - 107 mmol/L [facility] CO2 20(L) 22 - 31 mmol/L [facility] Anion Gap 11 5 - 15 mmol/L [facility] Calcium 8.2(L) 8.5 - 10.5 mg/dL [facility] Estimated GFR 30(L) >=60 mL/min/1. 73 m?? [facility] Comment: The eGFR was calculated using the CKD-EPI equation. As with all creatinine based estimates of kidney function, eGFR values calculated with the CKD-EPI equation are not accurate in patients with acute kidney failure, extremes of body mass or the acutely ill. [email or web address] eGFR 35(L) >=60 mL/min/1. 73 m?? [facility] Comment: The eGFR was calculated using the CKD-EPI equation. As with all creatinine based estimates of kidney function, eGFR values calculated with the CKD-EPI equation are not accurate in patients with acute kidney failure, extremes of body mass or the acutely ill. [email or web address] Blood specimen (specimen) 06/04/2019 10:13 AM EST 06/04/2019 10:32 AM EST Narrative Resulting Agency Comment Spec In Lab Helio Duke MD CHEMISTRY ORDERABLES Performing Organization Address City/State/[facility] Co de Phone Number [facility] [place] [address] * (ABNORMAL) Hemogram (06/04/2019 10:13 AM EST) WBC 16.0(H) 4.0 - 9.5 x10(3)/[facility] LABORATORY RBC 3.79(L) 4.58 - 5.54 x10(6)/[facility] LABORATORY Hemoglobin 12.6(L) 13.7 - 16.5 gm/dL [facility] Hematocrit 37.9(L) 40.5 - 48.5 % [facility] MCV 100.0(H) 82.9 - 93.1 fL [facility] MCH 33.2(H) 27.5 - 32.1 pg [facility] MCHC 33.2 32.0 - 35.7 gm/dL [facility] Platelets 120(L) 145 - 357 x10(3)/[facility] LABORATORY RDWSD 49.2(H) 36.0 - 45.0 [facility] LABORATORY RDWCV 13.3 11.4 - 13.8 % [facility] MPV 10.3 7.6 - 12.9 [facility] LABORATORY nRBC % Auto 0.0 % [facility] nRBC Abs Auto 0.000 0.000 - 0.000 x10(3)/[facility] LABORATORY Blood specimen (specimen) 06/04/2019 10:13 AM EST 06/04/2019 10:32 AM EST Narrative Resulting Agency Comment Spec In Lab Helio Duke MD HEMATOLOGY ORDERABLE S [facility] [place] [address] * Lactate, whole blood, send to lab ([facility]) (06/03/2019 8:40 PM EST) Lactate WB 1.9 0.5 - 2.2 mmol/L [facility] Blood specimen (specimen) 06/03/2019 8:40 PM EST 06/03/2019 8:54 PM EST Narrative Resulting Agency Comment Spec In Lab Helio Duke MD CHEMISTRY ORDERABLES [facility] [place] [address] * (ABNORMAL) Hemogram (06/03/2019 8:40 PM EST) WBC 16.5(H) 4.0 - 9.5 x10(3)/[facility] LABORATORY RBC 3.97(L) 4.58 - 5.54 x10(6)/[facility]ATORY Hemoglobin 13.0(L) 13.7 - 16.5 gm/dL [facility] Hematocrit 39.6(L) 40.5 - 48.5 % [facility] MCV 99.7(H) 82.9 - 93.1 [facility] LABORATORY MCH 32.7(H) 27.5 - 32.1 pg [facility] MCHC 32.8 32.0 - 35.7 gm/dL [facility] Platelets 141(L) 145 - 357 x10(3)/[facility] LABORATORY RDWSD 47.8(H) 36.0 - 45.0 [facility] LABORATORY RDWCV 13.0 11.4 - 13.8 % [facility] MPV 10.6 7.6 - 12.9 [facility] LABORATORY nRBC % Auto 0.0 % [facility] nRBC Abs Auto 0.000 0.000 - 0.000 x10(3)/[facility] LAB[facility]ATORY Blood specimen (specimen) 06/03/2019 8:40 PM EST 06/03/2019 8:54 PM EST Narrative Resulting Agency Comment Spec In Lab Heloi Duke MD HEMATOLOGY ORDERABLE S [facility] [place] [address] * XR Chest One View (06/03/2019 5:52 PM EST) Anatomical Region Laterality Modality Chest N/A Digital Radiogra phy Narrative 06/03/2019 6:05 PM EST EXAMINATION: XR CHEST ONE VIEW CLINICAL HISTORY: s/p right IJ, eval for ptx and tip location TECHNIQUE: 1 view of the chest , portable COMPARISON: 2011 FINDINGS: Enteric tube-both sidehole and tip are [...] report, please contact the number below. ? Procedure Note Tiarra Rivera MD - 06/03/2019 [...] number below. Electronically signed by: Tiarra Rivera [facility]([phone]), at 06/03/2019 6:05 PM Helio Duke MD IMG DX ORDERABLES * Lactate, whole blood, send to lab ([facility]) (06/03/2019 5:15 PM EST) Lactate WB 2.1 0.5 - 2.2 mmol/L [facility] Blood specimen (specimen) 06/03/2019 5:15 PM EST 06/03/2019 5:35 PM EST Narrative Resulting Agency Comment Spec In Lab Helio Duke MD CHEMISTRY ORDERABLES Performing Organization Address City/State/[facility] Co de Phone Number [facility] [place] [address] * (ABNORMAL) BMP w/fasting Glucose (06/03/2019 5:15 PM EST) Glucose Fasting 127(H) 65 - 99 mg/dL [facility] [...] of Diabetes Mellitus, Position Statement from the [employer]. ??Diabetes Care, Volume 33, Supplement 1, Apr 2009 BUN 19 10 - 20 mg/dL [facility] Creatinine 1.33 0.80 - 1.50 mg/dL [facility] Sodium 144 135 - 145 mmol/L [facility] Potassium 5.2(H) 3.5 - 5.0 mmol/L [facility] Comment: Please note: ??Patients with WBC >100,000 may have falsely elevated Potassium levels. ??For accurate Potassium quantification in these patients send serum separator tube (gold top) for subsequent determinations. ??Contact the Clinical Chemistry Laboratory if there are any questions. Chloride 112(H) 98 - 107 mmol/L [facility] CO2 21(L) 22 - 31 mmol/L [facility] Anion Gap 11 5 - 15 mmol/L [facility] Calcium 8.8 8.5 - 10.5 mg/dL [facility] Estimated GFR 52(L) >=60 mL/min/1. 73 m?? [facility] Comment: The eGFR was calculated using the CKD-EPI equation. As with all creatinine based estimates of kidney function, eGFR values calculated with the CKD-EPI equation are not accurate in patients with acute kidney failure, extremes of body mass or the acutely ill. [email or web address] eGFR 61 >=60 mL/min/1. 73 m?? [facility] Comment: The eGFR was calculated using the CKD-EPI equation. As with all creatinine based estimates of kidney function, eGFR values calculated with the CKD-EPI equation are not accurate in patients with acute kidney failure, extremes of body mass or the acutely ill. [email or web address] Blood specimen (specimen) 06/03/2019 5:15 PM EST 06/03/2019 5:35 PM EST Narrative Resulting Agency Comment Spec In Lab Helio Duke MD CHEMISTRY ORDERABLES [facility] [place] [address] * (ABNORMAL) Hemogram (06/03/2019 5:15 PM EST) WBC 14.9(H) 4.0 - 9.5 x10(3)/[facility] LABORATORY RBC 4.08(L) 4.58 - 5.54 x10(6)/[facility] LABORATORY Hemoglobin 12.8(L) 13.7 - 16.5 gm/dL [facility] Hematocrit 40.8 40.5 - 48.5 % [facility] MCV 100.0(H) 82.9 - 93.1 [facility] LABORATORY MCH 31.4 27.5 - 32.1 pg [facility] MCHC 31.4(L) 32.0 - 35.7 gm/dL [facility] Platelets 155 145 - 357 x10(3)/[facility] LABORATORY RDWSD 48.1(H) 36.0 - 45.0 [facility] LABORATORY RDWCV 13.0 11.4 - 13.8 % [facility] MPV 10.6 7.6 - 12.9 [facility] LABORATORY nRBC % Auto 0.0 % [facility] nRBC Abs Auto 0.000 0.000 - 0.000 x10(3)/[facility] LABORATORY Blood specimen (specimen) 06/03/2019 5:15 PM EST 06/03/2019 5:35 PM EST Narrative Resulting Agency Comment Spec In Lab Helio Duke MD HEMATOLOGY ORDERABLE S Performing Organization Address City/State/[facility] Co de Phone Number [facility] [place] [address] * EKG 12 Lead (06/03/2019 5:12 PM EST) Ventricular rate 90 BPM MUSE SYSTEM Atrial Rate 90 BPM MUSE SYSTEM P-R Interval 178 ms MUSE SYSTEM QRS Duration 134 ms MUSE SYSTEM Q-T Interval 398 ms MUSE SYSTEM QTC Calculated (Bezet) 486 ms MUSE SYSTEM Calculated P [place] 21 degrees MUSE SYSTEM Calculated R [place] -10 degrees MUSE SYSTEM Calculated T [place] 47 degrees MUSE SYSTEM INTERPRETATION Normal sinus rhythm with sinus arrhythmia Left bundle branch block Abnormal ECG When compared with ECG of 08-APR-2019 13:51, Vent. rate has increased BY ??32 BPM Left bundle branch block is now Present Confirmed by MD WATERS ARMIN ([id number]) on 06/04/2019 5:58:45 PM MUSE SYSTEM 06/03/2019 5:12 PM EST 06/04/2019 5:58 PM EST Helio Duke MD ECG ORDERABLES MUSE SYSTEM * (ABNORMAL) BLOOD GAS 2 ARTERIAL (06/03/2019 3:31 PM EST) pH Art 7.35 7.35 - 7.45 [facility] pCO2 Art 37 35 - 45 mmHg [facility] pO2 Art 126(H) 85 - 104 mmHg [facility] HCO3 Art 19.7(L) 20.0 - 26.0 mmol/L [facility] BE Art -6.0(L) -3.0 - 3.0 mmol/L [facility] Hgb Blood Gas 12.3(L) 13.7 - 16.5 gm/dL [facility] O2HB Art 97.5(H) 94.0 - 97.0 % [facility] COHB Art 0.4 % [facility] Comment: Nonsmokers: 0.5-1.5% COHB Smokers: Variable, but usually less than 10% Toxic: 20-30% COHB Lethal: Greater than 60% COHB METHB Art 0.3 <=1.5 % [facility] Na Whole Blood 136 135 - 145 mmol/L [facility] K Whole Blood 4.9 3.5 - 5.0 mmol/L [facility] Comment: Please note: Patients with WBC >100,000 may have falsely elevated Potassium levels. Contact the Clinical Chemistry Laboratory if there are any questions. ICa Whole Blood 1.28 1.15 - 1.33 mmol/L [facility] Comment: Note: ??Total bilirubin higher than 20 mg/dL may lead to falsely low ionized calcium. CL Whole Blood 111(H) 98 - 107 mmol/L [facility] Gluc Whole Bld 97 65 - 199 mg/dL [facility] Comment:Diabetes: >=200 mg/d L plus symptoms. Lactate WB 2.6(H) 0.5 - 2.2 mmol/L [facility] Blood specimen (specimen) 06/03/2019 3:31 PM EST 06/03/2019 3:31 PM EST Helio Duke MD CHEMISTRY ORDERABLES [facility] [place] [address] * (ABNORMAL) BLOOD GAS 2 ARTERIAL (06/03/2019 2:50 PM EST) pH Art 7.33(L) 7.35 - 7.45 [facility] pCO2 Art 34(L) 35 - 45 mmHg [facility] pO2 Art 438(H) 85 - 104 mmHg [facility] HCO3 Art 17.5(L) 20.0 - 26.0 mmol/L [facility] BE Art -8.3(L) -3.0 - 3.0 mmol/L [facility] Hgb Blood Gas 11.8(L) 13.7 - 16.5 gm/dL [facility] O2HB Art 99.3(H) 94.0 - 97.0 % [facility] COHB Art 0.1 % [facility] Comment: Nonsmokers: 0.5-1.5% COHB Smokers: Variable, but usually less than 10% Toxic: 20-30% COHB Lethal: Greater than 60% COHB METHB Art 0.0 <=1.5 % [facility] Na Whole Blood 134(L) 135 - 145 mmol/L [facility] K Whole Blood 5.0 3.5 - 5.0 mmol/L [facility] Comment: Please note: Patients with WBC >100,000 may have falsely elevated Potassium levels. Contact the Clinical Chemistry Laboratory if there are any questions. ICa Whole Blood 1.42(H) 1.15 - 1.33 mmol/L [facility] Comment: Note: ??Total bilirubin higher than 20 mg/dL may lead to falsely low ionized calcium. CL Whole Blood 110(H) 98 - 107 mmol/L [facility] Gluc Whole Bld 92 65 - 199 mg/dL [facility] Comment:Diabetes: >=200 mg/d L plus symptoms. Lactate WB 3.2(H) 0.5 - 2.2 mmol/L [facility] FIO2 Art 90 % [facility] PF Ratio Art 487 [facility] Blood specimen (specimen) 06/03/2019 2:50 PM EST 06/03/2019 2:50 PM EST Helio Duke MD CHEMISTRY ORDERABLES Performing Organization Address City/State/[facility] Co de Phone Number [facility] [place] [address] * (ABNORMAL) BLOOD GAS 2 ARTERIAL (06/03/2019 2:18 PM EST) pH Art 7.35 7.35 - 7.45 [facility] pCO2 Art 35 35 - 45 mmHg [facility] pO2 Art 421(H) 85 - 104 mmHg [facility] HCO3 Art 18.9(L) 20.0 - 26.0 mmol/L [facility] BE Art -6.7(L) -3.0 - 3.0 mmol/L [facility] Hgb Blood Gas 11.5(L) 13.7 - 16.5 gm/dL [facility] O2HB Art 98.7(H) 94.0 - 97.0 % [facility] COHB Art 0.3 % [facility] Comment: Nonsmokers: 0.5-1.5% COHB Smokers: Variable, but usually less than 10% Toxic: 20-30% COHB Lethal: Greater than 60% COHB METHB Art 0.3 <=1.5 % [facility] Na Whole Blood 135 135 - 145 mmol/L [facility] K Whole Blood 4.6 3.5 - 5.0 mmol/L [facility] Comment: Please note: Patients with WBC >100,000 may have falsely elevated Potassium levels. Contact the Clinical Chemistry Laboratory if there are any questions. ICa Whole Blood 1.25 1.15 - 1.33 mmol/L [facility] Comment: Note: ??Total bilirubin higher than 20 mg/dL may lead to falsely low ionized calcium. CL Whole Blood 109(H) 98 - 107 mmol/L [facility] Gluc Whole Bld 89 65 - 199 mg/dL [facility] Comment:Diabetes: >=200 mg/d L plus symptoms. Lactate WB 2.7(H) 0.5 - 2.2 mmol/L [facility] FIO2 Art 90 % [facility] PF Ratio Art 468 [facility] Blood specimen (specimen) 06/03/2019 2:18 PM EST 06/03/2019 2:18 PM EST Helio Duke MD CHEMISTRY ORDERABLES [facility] [place] [address] * (ABNORMAL) BLOOD GAS 2 ARTERIAL (06/03/2019 1:43 PM EST) pH Art 7.25(Criti meagan) 7.35 - 7.45 [facility] pCO2 Art 43 35 - 45 mmHg [facility] pO2 Art 397(H) 85 - 104 mmHg [facility] HCO3 Art 18.4(L) 20.0 - 26.0 mmol/L [facility] BE Art -8.8(L) -3.0 - 3.0 mmol/L [facility] Hgb Blood Gas 11.7(L) 13.7 - 16.5 gm/dL [facility] O2HB Art 98.8(H) 94.0 - 97.0 % [facility] COHB Art 0.3 % [facility] Comment: Nonsmokers: 0.5-1.5% COHB Smokers: Variable, but usually less than 10% Toxic: 20-30% COHB Lethal: Greater than 60% COHB METHB Art 0.3 <=1.5 % [facility] Na Whole Blood 134(L) 135 - 145 mmol/L [facility] K Whole Blood 4.5 3.5 - 5.0 mmol/L [facility] Comment: Please note: Patients with WBC >100,000 may have falsely elevated Potassium levels. Contact the Clinical Chemistry Laboratory if there are any questions. ICa Whole Blood 1.50(H) 1.15 - 1.33 mmol/L [facility] Comment: Note: ??Total bilirubin higher than 20 mg/dL may lead to falsely low ionized calcium. CL Whole Blood 110(H) 98 - 107 mmol/L [facility] Gluc Whole Bld 103 65 - 199 mg/dL [facility] Comment:Diabetes: >=200 mg/d L plus symptoms. Lactate WB 3.4(H) 0.5 - 2.2 mmol/L [facility] FIO2 Art 90 % [facility] PF Ratio Art 441 [facility] Blood specimen (specimen) 06/03/2019 1:43 PM EST 06/03/2019 1:43 PM EST Helio Duke MD CHEMISTRY ORDERABLES [facility] [place] [address] * (ABNORMAL) BLOOD GAS 2 ARTERIAL (06/03/2019 12:35 PM EST) pH Art 7.35 7.35 - 7.45 [facility] pCO2 Art 38 35 - 45 mmHg [facility] pO2 Art 246(H) 85 - 104 mmHg [facility] HCO3 Art 20.5 20.0 - 26.0 mmol/L [facility] BE Art -5.1(L) -3.0 - 3.0 mmol/L [facility] Hgb Blood Gas 12.1(L) 13.7 - 16.5 gm/dL [facility] O2HB Art 98.6(H) 94.0 - 97.0 % [facility] COHB Art 0.4 % [facility] Comment: Nonsmokers: 0.5-1.5% COHB Smokers: Variable, but usually less than 10% Toxic: 20-30% COHB Lethal: Greater than 60% COHB METHB Art 0.3 <=1.5 % [facility] Na Whole Blood 131(L) 135 - 145 mmol/L [facility] K Whole Blood 4.1 3.5 - 5.0 mmol/L [facility] Comment: Please note: Patients with WBC >100,000 may have falsely elevated Potassium levels. Contact the Clinical Chemistry Laboratory if there are any questions. ICa Whole Blood 1.06(L) 1.15 - 1.33 mmol/L [facility] Comment: Note: ??Total bilirubin higher than 20 mg/dL may lead to falsely low ionized calcium. CL Whole Blood 107 98 - 107 mmol/L [facility] Gluc Whole Bld 110 65 - 199 mg/dL [facility] Comment:Diabetes: >=200 mg/d L plus symptoms. Lactate WB 1.9 0.5 - 2.2 mmol/L [facility] FIO2 Art 70 % [facility] PF Ratio Art 351 [facility] Blood specimen (specimen) 06/03/2019 12:35 PM EST 06/03/2019 12:35 PM EST Helio Duke MD CHEMISTRY ORDERABLES [facility] [place] [address] * (ABNORMAL) BLOOD GAS 2 ARTERIAL (06/03/2019 11:38 AM EST) pH Art 7.34(L) 7.35 - 7.45 [facility] pCO2 Art 40 35 - 45 mmHg [facility] pO2 Art 96 85 - 104 mmHg [facility] HCO3 Art 21.0 20.0 - 26.0 mmol/L [facility] BE Art -4.8(L) -3.0 - 3.0 mmol/L [facility] Hgb Blood Gas 13.5(L) 13.7 - 16.5 gm/dL [facility] O2HB Art 96.1 94.0 - 97.0 % [facility] COHB Art 0.9 % [facility] Comment: Nonsmokers: 0.5-1.5% COHB Smokers: Variable, but usually less than 10% Toxic: 20-30% COHB Lethal: Greater than 60% COHB METHB Art 0.1 <=1.5 % [facility] Na Whole Blood 136 135 - 145 mmol/L [facility] K Whole Blood 4.0 3.5 - 5.0 mmol/L [facility] Comment: Please note: Patients with WBC >100,000 may have falsely elevated Potassium levels. Contact the Clinical Chemistry Laboratory if there are any questions. ICa Whole Blood 1.10(L) 1.15 - 1.33 mmol/L [facility] Comment: Note: ??Total bilirubin higher than 20 mg/dL may lead to falsely low ionized calcium. CL Whole Blood 108(H) 98 - 107 mmol/L [facility] Gluc Whole Bld 126 65 - 199 mg/dL [facility] Comment:Diabetes: >=200 mg/d L plus symptoms. Lactate WB 1.6 0.5 - 2.2 mmol/L [facility] FIO2 Art 40 % [facility] PF Ratio Art 240 [facility] Blood specimen (specimen) 06/03/2019 11:38 AM EST 06/03/2019 11:38 AM EST Helio Duke MD CHEMISTRY ORDERABLES [facility] [place] [address] * (ABNORMAL) BLOOD GAS 2 ARTERIAL (06/03/2019 8:54 AM EST) pH Art 7.36 7.35 - 7.45 [facility] pCO2 Art 41 35 - 45 mmHg [facility] pO2 Art 505(H) 85 - 104 mmHg [facility] HCO3 Art 22.8 20.0 - 26.0 mmol/L [facility] BE Art -2.6 -3.0 - 3.0 mmol/L [facility] Hgb Blood Gas 12.8(L) 13.7 - 16.5 gm/dL [facility] O2HB Art 99.0(H) 94.0 - 97.0 % [facility] COHB Art 0.4 % [facility] Comment: Nonsmokers: 0.5-1.5% COHB Smokers: Variable, but usually less than 10% Toxic: 20-30% COHB Lethal: Greater than 60% COHB METHB Art 0.3 <=1.5 % [facility] Na Whole Blood 136 135 - 145 mmol/L [facility] K Whole Blood 4.0 3.5 - 5.0 mmol/L [facility] Comment: Please note: Patients with WBC >100,000 may have falsely elevated Potassium levels. Contact the Clinical Chemistry Laboratory if there are any questions. ICa Whole Blood 1.15 1.15 - 1.33 mmol/L [facility] Comment: Note: ??Total bilirubin higher than 20 mg/dL may lead to falsely low ionized calcium. CL Whole Blood 107 98 - 107 mmol/L [facility] Gluc Whole Bld 122 65 - 199 mg/dL [facility] Comment:Diabetes: >=200 mg/d L plus symptoms. Lactate WB 1.3 0.5 - 2.2 mmol/L [facility] FIO2 Art 90 % [facility] PF Ratio Art 561 [facility] Blood specimen (specimen) 06/03/2019 8:54 AM EST 06/03/2019 8:54 AM EST Helio Duke MD CHEMISTRY ORDERABLES Performing Organization Address [facility] Co de Phone Number [facility] [place] [address] * XR Fluoro No Rad <1Hr - OR Use (06/03/2019 7:53 AM EST) Narrative RAD - 06/03/2019 7:53 AM EST This exam is auto-finalizing. No interpretation was done. Helio Duke MD IMG FLUORO ORDERABLE S Performing Organization Address [facility] Co de Phone Number RAD [place], [place] * ABOR[facility] Recheck Status (06/03/2019 6:11 AM EST) [facility] Recheck Order Order Placed [facility] AB[facility] Type Recheck Complete [facility] Blood specimen (specimen) 06/03/2019 6:11 AM EST 06/03/2019 6:25 AM EST Narrative Resulting Agency Comment Spec In Lab Helio Duke MD BLOOD BANK LAB ORDER DAVE Performing Organization Address [facility] Co de Phone Number [facility] [place] [address] * Urinalysis without microscopic (06/03/2019 6:11 AM EST) Glucose UA Negative Negative mg/dL [facility] Protein UA Negative Negative mg/dL [facility] Bilirubin UA Negative Negative mg/dL [facility] Comment: Clinical correlation required for positive Urine Bilirubin results as false positive may occur with some drugs and drug related products. If a false positive is suspected a serum total bilirubin should be considered if clinically indicated. Urobilinogen UA Normal Normal mg/dL [facility] pH UA 6.0 5.0 - 8.0 [facility] Blood UA Negative Negative mg/dL [facility] Ketones UA Negative Negative mg/dL [facility] Nitrite UA Negative Negative [facility] Leukocytes UA Negative Negative [facility] Appearance UA Clear Clear [facility] Spec [place] UA 1.022 1.002 - 1.030 [facility] Color UA Yellow Yellow [facility] Urine specimen (specimen) Urine / Unknown 06/03/2019 6:11 AM EST 06/03/2019 6:23 AM EST Narrative Resulting Agency Comment Spec In Lab Helio Duke MD URINE ORDERABLES Performing Organization Address City/State/[facility] Co de Phone Number [facility] [place] [address] * (ABNORMAL) Hemogram (06/03/2019 6:11 AM EST) WBC 7.8 4.0 - 9.5 x10(3)/[facility] LABORATORY RBC 4.45(L) 4.58 - 5.54 x10(6)/[facility] LABORATORY Hemoglobin 14.4 13.7 - 16.5 gm/dL [facility] Hematocrit 43.1 40.5 - 48.5 % [facility] MCV 96.9(H) 82.9 - 93.1 [facility]ORATORY MCH 32.4(H) 27.5 - 32.1 pg [facility] MCHC 33.4 32.0 - 35.7 gm/dL [facility] Platelets 178 145 - 357 x10(3)/[facility] RDWSD 46.5(H) 36.0 - 45.0 [facility] LABORATORY RDWCV 13.0 11.4 - 13.8 % [facility] MPV 10.2 7.6 - 12.9 [facility] nRBC % Auto 0.0 % [facility] nRBC Abs Auto 0.000 0.000 - 0.000 x10(3)/mcL [facility] Blood specimen (specimen) Venous Draw / Unknown 06/03/2019 6:11 AM EST 06/03/2019 6:22 AM EST Narrative Resulting Agency Comment Spec In Lab Helio Duke MD HEMATOLOGY ORDERABLE S [facility] [place] [address] * Basic Metabolic Panel (non-fasting) (06/03/2019 6:11 AM EST) Glucose Lvl 105 65 - 199 mg/dL [facility] Comment:Diabetes: >=200 mg/d L plus symptoms BUN 17 10 - 20 mg/dL [facility] Creatinine 0.90 0.80 - 1.50 mg/dL [facility] Sodium 142 135 - 145 mmol/L [facility] [...] 31 mmol/L [facility] Anion Gap 12 5 - 15 mmol/L [facility] Calcium 9.5 8.5 - 10.5 mg/dL [facility] Estimated GFR 84 >=60 mL/min/1. 73 m?? [facility] Comment: The eGFR was calculated using the CKD-EPI equation. As with all creatinine based estimates of kidney function, eGFR values calculated with the CKD-EPI equation are not accurate in patients with acute kidney failure, extremes of body mass or the acutely ill. [email or web address]/[facility] MUSKOGEEnkf eGFR 97 >=60 mL/min/1. 73 m?? [facility] Comment: The eGFR was calculated using the CKD-EPI equation. As with all creatinine based estimates of kidney function, eGFR values calculated with the CKD-EPI equation are not accurate in patients with acute kidney failure, extremes of body mass or the acutely ill. http://[employer]/DHnkf Blood specimen (specimen) Venous Draw / Unknown 06/03/2019 6:11 AM EST 06/03/2019 6:22 AM EST Narrative Resulting Agency Comment Spec In Lab Helio Duke MD CHEMISTRY ORDERABLES Performing Organization Address [facility] Co de Phone Number [facility] [place] [address] * Prealbumin (06/03/2019 6:11 AM EST) Prealbumin 25 20 - 40 mg/dL [facility] Comment: Prealbumin levels are generally lower in the pediatric population; adult concentrations are usually attained near puberty. Blood specimen (specimen) Venous Draw / Unknown 06/03/2019 6:11 AM EST 06/03/2019 6:22 AM EST Narrative Resulting Agency Comment Spec In Lab Helio Duke MD CHEMISTRY ORDERABLES Performing Organization Address [facility] Co de Phone Number [facility] [place] [address] * Antibody screen (06/03/2019 6:11 AM EST) Ab Screen Interp Negative [facility] Expires at [id number] on: 06/06/2019 [facility] Blood specimen (specimen) 06/03/2019 6:11 AM EST 06/03/2019 6:25 AM EST Narrative Resulting Agency Comment Spec In Lab Helio Duke MD BLOOD BANK LAB ORDER DAVE Performing Organization Address City/[facility]/ZIP Co de Phone Number [facility] [place] [address] * ABO/Rh Typing (06/03/2019 6:11 AM EST) ABORH Type A Neg [facility] Blood specimen (specimen) 06/03/2019 6:11 AM EST 06/03/2019 6:25 AM EST Narrative Resulting Agency Comment Spec In Lab Helio Duke MD BLOOD BANK LAB ORDER DAVE [facility] [place] [address] documented in this encounter Visit Diagnoses Not on filedocumented in this encounter Admitting Diagnoses Diagnosis AAA (abdominal aortic aneurysm) Abdominal aneurysm without mention of rupture documented in this encounter Administered Medications Inactive Administered Medications - up to 3 most recent administrations Medication Order MAR Action Action Date Dose Rate Site acetaminophen (Tylenol) tablet 650 mg 650 mg, [...] Given 06/10/2019 8:13 AM EST 81 mg bisacodyL (Dulcolax) suppository 10 mg 10 mg, Rectal, DAILY PRN, Starting on Sun06/08/19 at 0628, Until Sun06/10/19 at 1719, Constipation, Routine Given 06/08/2019 4:59 PM EST 10 mg gelatin adsorbable (GELFOAM) sponge ONCE PRN, Starting on Sun06/03/19 at 1520, Until Sun06/10/19 at 1719, Intra-Operative (Intra-Procedure) Given 06/03/2019 3:20 PM EST 2 each 19- Surgical Site hydrALAZINE (APRESOLINE) injection 10 mg 10 mg, Intravenous, EVERY 1 HOUR PRN, Starting on Sun06/03/19 at 1640, Until Sun06/10/19 at 1719, High Blood Pressure, for blood pressure > 150 for maximum of 2 doses then jasmine STOREY, Use if 2 doses of labetalol ineffective in achieving goal., Routine Given 06/10/2019 12:25 AM EST 10 mg ondansetron (ZOFRAN) injection 4-8 mg 4-8 mg, Intravenous, EVERY 8 HOURS PRN, Starting on Sun06/04/19 at 0249, Until Sun06/10/19 at 1719, Nausea, Start with 4mg and if ineffective in 30 minutes, give an additional 4mg ondansetron (Zofran) tablet 4-8 mg 4-8 mg, Oral, EVERY 8 HOURS PRN, Starting on Sun06/04/19 at 0249, Until Sun06/10/19 at 171, Nausea, Vomiting, If multiple antiemetics are ordered, use ondansetron first. PO Preferred. If patient unable to take PO, may give IV if ordered. May repeat times one in 45 minutes if ineffective. , Routine oxyCODONE (Roxicodone) tablet 10-15 mg 10-15 mg, Oral, EVERY 4 HOURS PRN, Starting on Sun06/09/19 at 0847, Until Sun06/10/19 at 171, Pain, severe pain (7-10), Initial dose 10mg. [...] Given 06/04/2019 8:47 PM EST 1 spray rifAMPin for Vascular Graft Soak 600 mg in sodium chloride 100 mL NOT APPLICABLE, ONCE, On Sun06/03/19 at 0915, 1 dose, For vascular graft soak only., Intra-Operative (Intra-Procedure), Indication for (Active or Suspected): Prophylaxis Given 06/03/2019 9:55 AM EST 110 mLs 19- Surgical Site thrombin (Bovine) (THROMBINAR) kit ONCE PRN, Starting on Sun06/03/19 at 1521, Until Sun06/10/19 at 1719, Intra-Operative (Intra-Procedure) Given 06/03/2019 3:21 PM EST 40,000 Units 19- Surgical Site documented in this encounter Active and Recently [...] suppositories? No 0821 (Given - Provider: Marv Solano RN)1406 (Given - Provider: Arielle Ivan)2218 (Given - Provider: Emilia Williamson RN) amLODIPine [...] 10 mg, Rectal, ONCE, 1 dose, On 06/09/19 at 0800, Routine 0800 (Given - Provider: Ari Olivia RN) ceFAZolin (Ancef) 2g in dextrose 5% 100 mL (CANCELED) 2 g, Intravenous, EVERY 8 HOURS, First dose on 06/09/19 at 1415, Until Discontinued, Administer over 30 Minutes, Indication for (Active or Suspected): Skin/Skin Structure 1426 (Given - Provider: Kathryn [place] RN)2204 (Given - Provider: David Trivedi, KEVIN) 0613 (Given - Provider: David Trivedi, KEVIN) furosemide (LASIX) injection 20 mg (COMPLETED) 20 [...] 2100, Routine 2217 (Given - Provider: Emilia Williamson, KEVIN) metoprolol (LOPRESSOR) injection 5 mg (CANCELED) 5 mg, Intravenous, EVERY 6 HOURS, First dose (after last modification) on 06/07/19 at 1130, Until Discontinued 0435 (Given - Provider: Gissel Jaquez RN)1228 (Given - Provider: Marv Solano, KEVIN)1652 (Hold - Provider: Marv Solano RN - Reason: See comment - Comment: HR 55)2340 (Given - Provider: Emilia Williamson RN) 0527 (Given - Provider: Emilia Williamson, KEVIN)1109 (Given - Provider: Ari Olivia RN)1647 (Given - Provider: Ari Olivia, KEVIN)2330 (Hold - Provider: David Trivedi RN - [...] Jaquez RN)0800 (Rate/Dose Change - Provider: Marv oSlano RN) 0505 (New Bag - Provider: Emilia [...] at 0249, Until Sun06/10/19 at 1718, Nausea, Start with 4mg and if ineffective [...] at 0847, Until Sun06/10/19 at 171, Pain, severe pain (7-10), Initial dose 10mg. [...] Routine documented in this encounter Care Teams Risk Control Specialist Relationship Specialty Start Date End Date Tr Hendrix DO [address] [place] [address] PCP - General Family Medicine 05/24/17 documented as of this encounter
--- OUTSIDE RECORDS SUMMARY | 2023-11-13 09:24 | XMS_ITS | Encounter Summary ---
[place] [address] Care Team Providers Care Retail Salesman Name Role Phone Tr Hendrix DO Primary Care Provider [phone] Encounter Details Date Type Department Care Team (Late st Contact Info) Description 04/08/2019 Orders [place] [id number] Unknown None Social History Tobacco Use Types Packs/Day Years [...] AM EST Office Visit Dermatology at [place] [address] [place] [id number] Mustapha Lemos MD [address] [facility] [place] [address] documented as of this encounter Procedures Procedure Name Priority Date/Time Associated Diagnosis Comments EKG 12-LEAD Routine 04/08/2019 1:51 PM EST documented in this encounter Results * EKG 12 Lead (04/08/2019 1:51 PM EST) Ventricular rate 58 BPM MUSE SYSTEM Atrial Rate 58 BPM MUSE SYSTEM P-R Interval 158 ms MUSE SYSTEM QRS Duration 92 ms MUSE SYSTEM Q-T Interval 416 ms MUSE SYSTEM QTC Calculated (Bezet) 408 ms MUSE SYSTEM Calculated P [place] 37 degrees MUSE SYSTEM Calculated R [place] -6 degrees MUSE SYSTEM Calculated T [place] 29 degrees MUSE SYSTEM INTERPRETATION Sinus bradycardia Otherwise normal ECG When compared with ECG of 21-JUN-2010 10:08, No significant change was found Confirmed by MD Federica, Jm ([id number]) on 04/08/2019 4:50:02 PM MUSE SYSTEM 04/08/2019 1:51 PM EST 04/08/2019 4:50 PM EST Unknown ECG ORDERABLES Performing Organization Address City/State/[facility] [[email or web address]] Co de Phone Number MUSE SYSTEM documented in this encounter Visit Diagnoses Not on filedocumented in this encounter Care Teams Retail Salesman Relationship Specialty Start Date End Date Tr Hendrix DO [address] [place] [address] PCP - General Family Medicine 05/24/17 documented as of this encounter
--- OUTSIDE RECORDS SUMMARY | 2023-11-13 09:24 | XMS_ITS | Encounter Summary ---
[place] [address] Care Team Providers Care Child Nutrition Manager Name Role Phone Heberjennifer Tr Zambrano DO Primary Care Provider [phone] Encounter Details Date Type Department Care Team (Late st Contact Info) Description 02/27/2019 11:00 AM EDT Tech [place] [address] Rula Jiménez, RVT Abdominal aortic aneurysm (AAA) without rupture Social [...] 10:00 AM EST Office Visit Dermatology at [place] [address] [facility] [place] [address] Mustapha Lemos MD [address] [facility] [place] [address] documented as of this encounter Procedures Procedure Name Priority Date/Time Associated Diagnosis Comments ARTERIAL DUPLEX LEGS BILATERAL Routine 02/27/2019 11:04 AM EDT Abdominal aortic aneurysm (AAA) without rupture documented in this encounter Results * Arterial Duplex, Bilat Legs (02/27/2019 11:04 AM EDT) VB Text Report Department: Vascular Surgery Lab Patient: [id number] (STORM NOLASCO) CPT: 41704 ICD10: I71.4 Referring Physician: ERIN BAIRD ?? 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 Diameter AP (cm): 0.9 ? Diameter Transverse (cm): 1.1 Popliteal Artery, Mid, Right ? PSV (cm/s): 73 ? EDV: 0 ? Diameter AP (cm): 0.7 ? Diameter Transverse (cm): 0.8 Popliteal Artery, Below Knee, Right ? Diameter AP (cm): 0.7 ? Diameter Transverse (cm): 0.6 Popliteal Artery, Above Knee, Left ? Diameter AP (cm): 0.8 ? Diameter Transverse (cm): 0.8 Popliteal Artery, Mid, Left ? PSV (cm/s): 49 ? EDV: 0 ? Diameter AP (cm): 0.7 ? Diameter Transverse (cm): 0.7 Popliteal Artery, Below Knee, Left ? Diameter AP (cm): 0.6 ? Diameter Transverse (cm): 0.6 Interpretation : Patent right and left popliteal arteries with no evidence of stenosis and normal triphasic Doppler waveforms. No evidence of aneurysm, bilaterally. Comparison: ??No previous study in our vascular lab database for comparison. Electronically Signed by: ELAN ORELLANA MD on 2019-02-27 05:13:32 PM [facility] VB Text Report End of Report [facility] 02/27/2019 11:0 4 AM EDT Erin Baird MD [facility] Organization Address City/State/ZIP Co de Phone Number [facility] documented in this encounter Visit Diagnoses Diagnosis Abdominal aortic aneurysm (AAA) without rupture documented in this encounter Care Teams Child Nutrition Manager Relationship Specialty Start Date End Date Tr Hendrix DO [address] [place] [address] PCP - General Family Medicine 05/24/17 documented as of this encounter
--- OUTSIDE RECORDS SUMMARY | 2023-11-13 09:24 | XMS_ITS | Encounter Summary ---
Author Organization [facility] [address] Care Team Providers Care Tubing Drier Name Role Phone Tr Hendrix DO Primary Care Provider [phone] Reason for Referral * Diagnostic Test (Routine) - Closed Specialty Diagnoses / Procedures Referred By Contac t Referred To Contact Radiology Diagnoses Abdominal aortic aneurysm (AAA) without rupture Procedures CT Angiogram Abdomen & Pelvis w Contrast (Generic) Shonda Baird MD [facility] [place] [address] [facility] [place] [address] Referral ID Status Reason Start Date Expiration Date V isits Requested Visits Authorized [id number] Closed Specialty Service Requested 08/02/2018 08/02/2019 1 1 Reason for Visit * Diagnostic Test (Routine) - Closed Specialty Diagnoses / Procedures Referred By Contac t Referred To Contact Radiology Diagnoses Abdominal aortic aneurysm (AAA) without rupture Procedures CT Angiogram Abdomen & Pelvis w Contrast (Generic) Shonda Baird MD [facility] [place] [address] [facility] [place] [address] Referral ID Status Reason Start Date Expiration Date V isits Requested Visits Authorized [id number] Closed Specialty Service Requested 08/02/2018 08/02/2019 1 1 Encounter Details Date Type Department Care Team (Latest Contact Info) Description 03/14/2019 8:37 AM EST - 03/14/2019 11:59 PM EST Hospital Encounter [facility] [place] [address] Shonda Baird MD [facility] [place] [address] Abdominal aortic aneurysm (AAA) without rupture Discharge [...] Sig Dispensed Refills Start Date End Date mirabegron 50 mg Tablet Sustained Release 24 hr Take by mouth. terazosin (HYTRIN) 5 mg Capsule Bedtime 03/19/2017 06/14/2023 ibuprofen (ADVIL;MOTRIN) 600 mg Tablet Three times a day 08/21/2012 atorvastatin (LIPITOR) 80 mg Tablet Take 80 mg by mouth daily. 03/26/2017 02/14/2021 ketoconazole (NIZORAL) 2 % Shampoo Apply as shampoo once daily (three months supply) 360 mL 3 05/24/2017 05/31/2020 documented as of this encounter Plan of Treatment Upcoming Encounters Date Type Department Care Team (Late st Contact Info) Description 06/20/2024 10:00 AM EST Office Visit Dermatology at [place] [address] [address] Mustapha Lemos MD [address] [place] [address] documented as of this encounter Procedures Procedure Name Priority Date/Time Associated Diagnosis Comments CT ANGIOGRAM ABDOMEN AND PELVIS W CONTRAST Routine 03/14/2019 9:20 AM EST Abdominal aortic aneurysm (AAA) without rupture documented in this encounter Results * CT Angiogram Abdomen & Pelvis [...] the number below. ? Electronically signed by: Wayne Wise, [facility] ([phone]), at 03/14/2019 2:33 PM Narrative 03/14/2019 2:33 PM EST EXAMINATION: CT [...] Shonda Baird MD IMG CT ORDERABL ES documented in this encounter Visit Diagnoses Diagnosis Abdominal aortic aneurysm (AAA) without rupture documented in this encounter Administered Medications Inactive Administered Medications - up to 3 most recent administrations Medication Order MAR Action Action Date Dose Rate Site iohexol (OMNIPAQUE) 350 mg/mL solution 0-200 mL 0-200 mL, Intravenous, ONCE PRN, 1 dose, Starting on Sun03/14/19 at 0914, Until Sun03/14/19 at 0920, Per Protocol, Warning Vesicant/Irritant Medication , Radiology Contrast, Routine Given 03/14/2019 9:20 AM EST 70 mLs documented in this encounter Care Teams Tubing Drier Relationship Specialty Start Date End Date Tr Hendrix DO [address] [place] [address] PCP - General Family Medicine 05/24/17 documented as of this encounter
--- OUTSIDE RECORDS SUMMARY | 2023-11-13 09:24 | XMS_ITS | Encounter Summary ---
Author Organization [facility] [place] [address] Care Team Providers Care Purchasing Analyst Name Role Phone Tr Hendrix DO Primary Care Provider [phone] Reason for Visit * Reason Comments Aneurysm (Aortic) AAA Encounter Details Date Type Department Care Team (Late st Contact Info) Description 03/14/2019 10:00 AM EST Office Visit [place] [address] Helio Duke MD [facility] [place] [address] Abdominal aortic aneurysm (AAA) without rupture; Iliac artery aneurysm Social History Tobacco Use Types Packs/Day Years Used Date Smoking Tobacco: Former Cigarettes 1 50 0 07/29/1965 - 07/30/2015 Smokeless Tobacco: Never Sex and Gender Information Value Date Recorded Sex Assigned at Not on file Gender Identity Not on file Sexual Orientation Not on file documented as of this encounter Last Filed Vital Signs Vital Sign Reading Time Taken Comments Blood Pressure 159/64 03/14/2019 9:46 AM EST Pulse 58 03/14/2019 9:46 AM EST Temperature - - Respiratory Rate 18 03/14/2019 9:46 AM EST Oxygen Saturation - - Inhaled Oxygen Concentration - - Weight 93.9 kg (207 lb) 03/14/2019 9:46 AM EST Height 175.3 cm (5' 9) 03/14/2019 9:46 AM EST Body Mass Index 30.57 03/14/2019 9:46 AM EST documented in this encounter Progress Notes * Helio Duke MD - 03/14/2019 10:00 AM EST Vascular Surgery Clinic Visit Note Reason for Visit: AAA ?? History: Storm Nolasco is a 73 yo M here for follow-up evaluation of his AAA and bilateral iliac aneurysms. He has had known AAA for several years [...] activity limitations. Denies any prior abdominal surgeries. ?? Atherosclerotic Risk Factors: (n) DM (y) HTN (y) Hyperlipidemia reports that he quit smoking about 3 years ago. His smoking use included cigarettes. He has a 50.00pack-year smoking history. He has never used smokeless tobacco. ?? Cardiovascular History: (n) Previous AK (n) Angina (n) CHF (n) Arrythmia (n) copd Problem List: Patient Active Problem List Diagnosis ??? Iliac [...] on medication Medications: Current Outpatient Medications: ??? mirabegron 50 mg Tablet Sustained Release 24 hr, Take by mouth., Disp: , Rfl: ??? terazosin (HYTRIN) 5 mg Capsule, Bedtime, Disp: , Rfl: ??? ibuprofen (ADVIL;MOTRIN) 600 mg Tablet, Three times a day, Disp: , Rfl: ??? atorvastatin (LIPITOR) 80 mg Tablet, Daily, Disp: , Rfl: ??? ketoconazole (NIZORAL) 2 % Shampoo, Apply as shampoo once daily (three months supply), Disp: 360 mL, Rfl: 3 No current facility-administered medications for this visit. Patient Medical, Surgical, and Social History updated and reviewed in eDH. Physical Exam: Temp: -- Heart Rate: [58] Resp: [18] BP: (159)/(64) SpO2: -- Heart Rate from SpO2: -- Estimated body mass index is 30.57 kg/m?? as calculated from the following: Height as of this encounter: 175.3 cm (5' 9). Weight as of this encounter: 93.9 kg (207 lb). General: NAD, appears well Neuro: Alert and oriented, motor sensory grossly intact in all extremities, CN 2-12 normal Ear, Nose, Throat: No masses or lesions Skin: No lesions or abnormal markings Lungs: CTA Heart: RRR Abd: Soft, NT, ND, AAA palpable without tenderness Extremity - [place], warm, no ulceration, brisk capillary refill, no edema, no popliteal aneurysms Vascular: R L Carotid 2/2 bruit (n) 2/2 bruit (n) Radial 2/2 2/2 Femoral 2/2 2/2 Popliteal 2/2 2/2 DP 2/2 2/2 PT 2/2 2/2 Studies: Images personally reviewed by myself today. CTA shows multiple aneurysms. 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 Assessment/Plan: Mr. 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 These have all slowly enlarged. At this point, his rupture risk is about 5% foreach per year. We agreed that it is time to start talking about repair options and I reviewed these. Given his anatomy, he does not have a standard or simple endovascular option. The neck may not be suitable for durable seal and the iliac aneurysms would require seal in the EIAs. The L CHANCE proximally is too diseased to allow for an iliac branched device and the left hypogastric origin stenosis would make such a device difficult as well. Given his relatively young age and overall good fitness, I believe that he would benefit from an open repair. I reviewed this with its risks in detail. He will require cardiology evaluation prior to such an extensive repair as it would likely require a clampabove the left renal and below the right renal artery and extensive pelvic dissection with distal iliac anastomoses. I relayed the risk of pelvic and colon ischemia and subsequent impotence as well. He understands and we will revisit in clinic after the cardiac evaluation is complete. 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
--- OUTSIDE RECORDS SUMMARY | 2023-11-13 09:24 | XMS_ITS | Encounter Summary ---
[place] [address] Care Team Providers Care Bag Washer Name Role Phone Tr Hendrix DO Primary Care Provider [phone] Encounter Details Date Type Department Care Team (Late st Contact Info) Description 05/27/2019 Refill Dermatology at [address] [phone] Yvrose Mcwilliams LPN Social History Tobacco Use [...] 10:00 AM EST Office Visit Dermatology at [address] [phone] Mustapha Lemos MD [address] [facility] [place] [address] documented as of this encounter Visit Diagnoses Not on filedocumented in this encounter Care Teams Bag Washer Relationship Specialty Start Date End Date Tr Hendrix DO [address] [place] [address] PCP - General Family Medicine 05/24/17 documented as of this encounter
--- OUTSIDE RECORDS SUMMARY | 2023-11-13 09:24 | XMS_ITS | Encounter Summary ---
[place] [address] Care Team Providers Care Milk Bottler Name Role Phone Tr Hendrix DO Primary Care Provider [phone] Encounter Details Date Type Department Care Team (Late st Contact Info) Description 03/14/2019 Orders [place] [address] Evelyn Rincon RN Abdominal aortic aneurysm (AAA) without rupture; Preop examination Social History Tobacco Use Types Packs/Day Years [...] 10:00 AM EST Office Visit Dermatology at [address] [facility] [place] [address] Mustapha Lemos MD [address] [facility] [place], [place] [id number] documented as of this encounter Visit Diagnoses Diagnosis Abdominal aortic aneurysm (AAA) without rupture Preop examination Preoperative examination, unspecified documented in this encounter Care Teams Milk Bottler Relationship Specialty Start Date End Date Tr Hendrix DO [facility] [place] [address] PCP - General Family Medicine 05/24/17 documented as of this encounter
--- OUTSIDE RECORDS SUMMARY | 2023-11-13 09:24 | XMS_ITS | Encounter Summary ---
Author Organization [facility] Address [facility] [place] [address] Care Team Providers Care Medical Collections Specialist Name Role Phone Tr Hendrix DO Primary Care Provider [phone] Reason for Visit * Auth/Cert Specialty Diagnoses [...] Expiration Date Visits Re quested Visits Authorized [id number] 1 1 Encounter Details Date Type Department Care Team (Late st Contact Info) Description 06/03/2019 7:57 AM EST Anesthesia Event [place] [address] Sepideh Rizzo MD [facility] [place] [address] Hermilo Ko MD [facility] [place] [address] Anesthesia Record Procedure Summary Procedure Name Responsible Anesthesiologist Anesthesia Start Time Anesthesia Stop Time @REPAIR ILIAC ARTERY ANEURYSM (CHANCE, HYPOGASTRIC OR EIA) (WRVU 26.4) (Bilateral) Sepideh Rizzo MD 06/03/19 0757 06/03/19 1622 Events Date Time Event Comment 06/03/2019 0657 0757 AN Verify 0757 Start 0757 An Start Data 0804 An Induction 0809 An Intubation 0830 Anesthesia Ready 0854 ABG Data Arterial Blood Gas result: pH 7.36 pCO2 41 pO2 504 %O2 Sat 99 FiO2 0.9 HCO3 22.8 BE -2.6 Hb 12.8 K 4.03 Glucose 122 Lactate 1.32 1209 Vascular Clamp ON 1235 ABG Data Arterial Blood Gas result: pH 7.349 pCO2 38 pO2 246 %O2 Sat 98 FiO2 0.7 HCO3 20.5 BE -5.1 Hb 12.1 K 4.12 Glucose 110 Lactate 1.86 1319 Quick Note Planning for re moval of clamp interrupted by brisk bleeding 1324 An Data Art Bigeminy. HR 70 s not 40s 1332 Vascular Clamp OFF Left leg [address] depressions noted with hypotension after clamp removal. Quickly returned to baseline after pressure increased. 1345 ABG Data Arterial Blood Gas result: pH 7.25 pCO2 43 pO2 397 %O2 Sat 98 FiO2 0.9 HCO3 18.4 BE -8.8 Hb 11.7 K 4.5 Glucose 103 Lactate 3.4 1435 Vascular Clamp OFF Right leg 1452 ABG Data Arterial Blood Gas result: pH 7.33 pCO2 33.8 pO2 438 %O2 Sat 100 FiO2 95 HCO3 17.5 BE -8.3 Hb 11.8 K 5.01 Glucose 92 Lactate 3.18 1536 ABG Data Arterial Blood Gas result: pH 7.347 pCO2 36.7 pO2 125 %O2 Sat 97 FiO2 0.4 HCO3 19.7 BE -6 Hb 12.3 K 4.94 Glucose 97 Lactate 2.56 1612 Extubation/LMA Out 1616 an stop data 1621 Recovery or ICU Handoff Alana ent care was transferred to the destination unit staff after review of the patient's medical history, current anesthetic/surgical status and plan, according to the Provider Handoff Checklist. 1622 Stop Meds Name Total Lidocaine 1.5% with Epi 1:200,000 3 mL fentaNYL 100 mcg IV Lidocaine 300 mg Propofol 250 mg Rocuronium 170 mg PHENYLephrine 640 mcg ePHEDrine 20 mg Heparin 12,000 Units Protamine 50 mg Ondansetron 8 mg Neostigmine 5 mg Glycopyrrolate 0.6 mg ceFAZolin (ANCEF) 2g in dextrose 5% 100 mL 6 g PHENYLephrine INF 7,890 mcg Mannitol 25% 25 g Calcium Chloride 3,000 mg NORepinephrine 24 mcg Sodium Bicarbonate 8.4% 100 mEq HYDROmorphone 1.2 mg HYDROmorphone (Dilaudid) 10 mcg/mL, BUpivacaine (Marcaine) 0.1% (0.1 mg/mL) (1/10%) in sodium chloride 0.9% 250 mL epidural 6 mL HYDROmorphone (Dilaudid) 10 mcg/mL, BUpivacaine (Marcaine) 0.1% (0.1 mg/mL) (1/10%) in sodium chloride 0.9% 250 mL epidural 9.2 mL Esmolol 40 mg Sodium Chloride 0.9% 2,000 mL Lactated Ringers 4,000 mL * Agents Name O2 Air N2O Sevoflurane (et) * Blood No blood administrations on file. Lines, Drains, and Airways Type Details Placement Removal NG/OG Tube 06/03/19; (placed an d verified in OR); left nostril; stomach; 73; Taped; (MD states NG verified in surgery); provider notified, other (see comments); removed by patient, acute confusion, provider notified; 06/06/19; 121406/03/19 0000 by Capri Marshall RN 06/06/19 1215 by Ana Martínez RN (RETIRED) Peripheral IV Line - Single Lumen 06/03/19; 0641; metacarpal vein (top of hand), left; onpa-ncs-udovle catheter system; 18 gauge, 1 in length; NAVIN; distraction, intradermal injection, tolerated well, appears comfortable; 0; patient removed- acute confusion, provider notified; removed inadvertently; 06/06/19; 121406/03/19 0641 by Baldo Zamora RN 06/06/19 1215 by Ana Martínez RN Epidural 06/03/19; 0739; thoracic; T7-8, MARKEL at 7cm, 15+cm at skin.; Dr. Thompson.; analgesia, continuous infusion; Removed by APS service.; 06/09/19; 0746 06/03/19 0739 by Wayne Miller RN 06/09/19 0746 by Ari Olivia RN Urethral Catheter 06/03/19; 08; Physician order; indwelling catheter with core temperature probe; 100% silicone; 14; inserted at this facility; 1; 5; 10; none; drainage bag to dependent drainage; urethral catheter removed, tubing intact, per protocol/policy; Inserted by Dr. Bety Wright with clear urine return.; 06/09/19; 1025 06/03/19 08 by Laurie Diallo RN 06/09/19 1025 by Hannah Luciano LNA ETT Mask Ventilation: Adjunct (2); ETT Type: Cuffed; ETT Size: 8 mm; Mac Blade: 4; Notes: Asleep, Pre-O2, Stylette; Attempts: 1; Laryngoscopy Grade: 2; ETT Placement Verified By: Capnometry, Visual, Auscultation; Secured at Teeth: 24 cm; Inserted by: nolvia; Removal Date: 06/03/19; Removal Time: 16106/03/19 0809 by Hermilo Ko MD 06/03/19 161 by Hermilo Ko MD Arterial Line 06/03/19; 0815; radi al artery, left; 20 gauge; kirill; Sterile Prep, Sterile Gloves; 06/03/19; 221706/03/19 08 by Hermilo Ko MD 06/03/192217 by Capri Marshall RN (RETIRED) Percutaneous Central Line - Single Lumen 06/03/19; 08; internal jugular vein, right; Ultrasound Guidance; 9 Fr; kirill; Tubing Manometry; CVC Protocol Performed; no longer indicated, catheter/device intact, site care per policy/procedure; 06/03/19; 220606/03/19827 by Hermilo Ko MD 06/03/192206 by Capri Marshall RN (RETIRED) Percutaneous Central Line - Single Lumen 06/03/19; 0828; internal jugular vein, right; Ultrasound Guidance; (7Fr); kirill; CVC Protocol Performed; Single lumen catheter via introducer; 06/03/19; 1600 06/03/19 0828 by Hermilo Ko MD 06/03/19 1600 by Sepideh Rizzo MD Incision 06/03/19; 0856; abdomen; vertical; 12/26/21 (LDA cleanup utility RA#[id number]); 1715 (LDA cleanup utility RA#[id number]) 06/03/19 0856 by Laurie Diallo RN 12/26/21 1715 by Tristin Negro documented in this encounter Social History Tobacco [...] on file documented as of this encounter OR Notes * Anesthesia Postprocedure Evaluation - Hermilo Ko MD - 06/03/2019 5:03 PM EST Department of Anesthesiology Post-procedure Note Patient: Storm Nolasco Procedure Summary Date: 06/03/19 Room / Location: [facility] OR [address] [place] [address] MAIN OR Anesthesia Start: 756 Anesthesia Stop: 162 Procedures: @REPAIR ILIAC ARTERY ANEURYSM (CHANCE, HYPOGASTRIC OR EIA) (WRVU 26.4) (Bilateral ) @REPAIR AORTIC ANEURYSM INVOLVING RENAL OR MESENTERIC VESSELS (WRVU 35.35) (N/A ) @ENDARTERECTOMY, ILIAC W OR W/O PATCH GRAFT (WRVU 24.61) @ENDARTERECTOMY, ABD. AORTA W OR W/O PATCH GRAFT (WRVU 27.72) (N/A ) Diagnosis: (AAA) Surgeon: Helio Duke MD Responsible Provider: Sepideh Rizzo MD Anesthesia Type: general ASA Status: 2 All Anesthesia Providers: Anesthesiologist: Sepideh Rizzo MD Asset Management Coordinator: Hermilo Ko MD Vitals Value Taken Time BP 155/123 06/03/2019 5:00 PM Temp 36.5 ??C (97.7 ??F) 06/03/2019 4:18 PM Pulse 94 06/03/2019 5:01 PM Resp 21 06/03/2019 5:01 PM SpO2 91 % 06/03/2019 5:01 PM Pain Level Vitals shown include unvalidated device data. Patient Location: PACU/[facility] Level of Consciousness: Conscious but Sleepy Pain Management: Satisfactory Analgesia PONV: None Cardiovascular Status: Hemodynamically Stable Respiratory Status: Supplemental O2 (NC or FM) Postoperative Fluid Status: Possible Anesthetic Complications: NONE apparent at time of evaluation Final Primary Anesthesia Type: General (The anesthetic type performed was the same as planned.) Comments: * Anesthesia Procedure Notes - Fredis Thompson MD - 06/03/2019 8:02 AM EST Associated Order(s): Neuraxial Block Procedure: Neuraxial Block Post-op Pain Control Type: Epidural The patient was greeted. The sedation plan, its benefits, risks and alternatives were discussed with the patient. The patient has consented to the procedure. The medical history and chart were reviewed. The timeout was performed. Start time: 06/03/2019 7:35 AM End time: 06/03/2019 8:02 AM Patient Location: Operating Room Baseline Information (CGW-[id number] entry for database use): Addiction History: No Chronic Pain: No On opioids (any route) for 4 weeks or more: No Anxiety: No Depression: No Mood Disorder: No CAD: Yes HTN: Yes DM: Yes Baseline Pain Score: 0 Patient Prep Position: Prone Prep: Hand Hygiene, Sterile Gloves, Mask, Hat, Chlorhexidine and Patient Draped Injection technique: continuous Skin Anesthetic Lidocaine 1% 5 ml Procedure Technique Level of needle insertion: T12-L1 Needle approach: midline Needle Type: Tuohy Gauge: 17 Needle length: 3.5 in Technique for Loss of Resistance: MARKEL saline A 19 guage epidural catheter introduced into the epidural space. Dressing/Secured with: Chlorhexidine Tegaderm and Tegaderm Number of attempts: 1 Test dose Lidocaine 1.5% w/Epinephrine 1:2000,000 3mL Medications: Lidocaine 1.5% with Epi 1:200,000, 3 mL Events/Notes Imaging: epidurogram obtained and fluoroscopy guided Level of Epidural Tip via Fluoroscopy: T7-8 Iohexol 240 mgI/mL, 2 mL Events: None Additional Notes: Technically straight forward procedure. No pain or paresthesia at any point. Correct epidural catheter location confirmed by dye study. Negative aspiration, Negative test dose. Resident/ROUNDHOUSE WORKER: Second Resident/ROUNDHOUSE WORKER: Fellow: Attending Physician: Fredis Thompson MD ~~~~~~~~~~~~~~~~~~~~~~~~~~~~~~~~~~~~~~~~~~~~~~~~~~~~~~~~~~~~ * Anesthesia Preprocedure Evaluation - Sepideh Rizzo MD - 06/02/2019 7:57 PM EST Pre-Anesthesia Evaluation for: Storm Nolasco a 74 y.o. male. Procedure(s): @CONVERSION TO OPEN AAA, USING TUBE GRAFT, FOLLOWING FAILED EVG, PLUS REPAIR OF ASSOC. ARTERIAL TRAUMA (WRVU 35.23) @REPAIR ILIAC ARTERY ANEURYSM (CHANCE, HYPOGASTRIC OR EIA) (WRVU 26.4) Patient Active Problem List Diagnosis ??? AAA (abdominal aortic aneurysm) ??? [...] pT1b pNx pMx ??? Hypertension on medication No past medical history on file. No past surgical history on file. Social History Tobacco Use ??? Smoking status: Former Smoker Packs/day: 1.00 Years: 50.00 Pack years: 50.00 Types: Cigarettes Last attempt to quit: 07/30/2015 Years since quittin.8 ??? Smokeless tobacco: Never Used Substance Use Topics ??? Alcohol use: Not on file Social History Substance and Sexual Activity Drug Use Not on file Allergies Allergen Reactions ??? Hydrochlorothiazide ??? Lisinopril Medications: MAR and/or home medications have been reviewed. Physical Exam: There were no vitals filed for this visit. There is no height or weight on file to calculate BMI. Airway Assessment: Mallampati: I TM distance: >3 FB Neck ROM: full Cardiovascular Assessment: Rhythm: regular Pulmonary Assessment: breath sounds clear to auscultation Dental Assessment: - normal exam Misc Assessment: Anesthesia Plan: ASA 2 general, with a(n) intravenous induction 74 y.o. male presenting for open repair of infrarenal AAA, b/l iliac aneurysms, and left hypogastric aneurysm. Denies recent URI, denies GERD, denies CP/SOB, denies CLARISSA, denies liver kidney or thyroid disease, denies history of stroke, reports good functional tolerance (able to ambulate 2 FOS without problems), and is appropriately NPO. PMH significant for HTN, HLD, former smoker. No anesthetic or airway records. EKG: sinus luca Lab Results Component Value Date HGB 14.8 10/26/2011 PLATELET 188 10/26/2011 NA 137 10/26/2011 K 4.0 10/26/2011 CREATININE 0.99 02/27/2019 No results for input(s): ABORH in the last 7068 hours. Allergies: -- Hydrochlorothiazide -- Lisinopril NPO Status: Appropriate Anesthetic Plan: GETA, CVC, standard monitors plus arterial line, epidural for post-op pain. Plan for and risks of anesthesia discussed in detail with the pt, all questions answered, consent obtained. Region - [facility] Informed Consent: Anesthetic plan and risks discussed with patient and daughter/son. Use of blood products discussed with patient and daughter/son who consented to blood products. Plan discussed with attending and resident. PAT Clinic Note documented in this encounter Plan of Treatment Upcoming Encounters Date Type Department Care Team (Late st Contact Info) Description 06/20/2024 10:00 AM EST Office Visit Dermatology at [place] [address] [place] [address] Mustapha Lemos MD [address] [facility] [place] [address] documented as of this encounter Procedures Procedure Name Priority Date/Time Associated Diagnosis Comments ANE NEURAXIAL APS USE Routine 06/03/2019 8:02 AM EST documented in this encounter Results * Neuraxial Block (06/03/2019 8:02 AM EST) Narrative Fredis Thompson MD - 06/03/2019 8:02 AM EST Fredis Thompson MD ? 06/03/2019 ??8:05 AM Procedure: ?? Neuraxial Block Post-op Pain Control Type: Epidural The patient was greeted. The sedation plan, its benefits, risks and alternatives were discussed with the patient. ??The patient has consented to the procedure. ??The medical history and chart were reviewed. ??The timeout was performed. Start time: 06/03/2019 7:35 AM End time: 06/03/2019 8:02 AM Patient Location: Operating Room Baseline Information (EMP-ulrg-dmbfujsl entry for database use): Addiction History: ??No Chronic Pain: ??No On opioids (any route) for 4 weeks or more: ??No Anxiety: ??No Depression: ??No Mood Disorder: ??No CAD: ??Yes HTN: ??Yes DM: ??Yes Baseline Pain Score: ??0 Patient Prep Position: Prone Prep: Hand Hygiene, Sterile Gloves, Mask, Hat, Chlorhexidine and Patient Draped Injection technique: continuous Skin Anesthetic Lidocaine 1% ??5 ml Procedure Technique Level of needle insertion: T12-L1 Needle approach: midline Needle Type: Tuohy Gauge: 17 Needle length: 3.5 in Technique for Loss of Resistance: MARKEL saline A 19 guage epidural catheter introduced into the epidural space. Dressing/Secured with: Chlorhexidine Tegaderm and Tegaderm Number of attempts: 1 Test dose Lidocaine 1.5% w/Epinephrine 1:2000,000 3mL Medications: Lidocaine 1.5% with Epi 1:200,000, 3 mL Events/Notes Imaging: ??epidurogram obtained and fluoroscopy guided Level of Epidural Tip via Fluoroscopy: T7-8 Iohexol 240 mgI/mL, 2 mL Events: ??None Additional Notes: ??Technically straight forward procedure. ??No pain or paresthesia at any point. Correct epidural catheter location confirmed by dye study. ??Negative aspiration, Negative test dose. Resident/ROUNDHOUSE WORKER: ? Second Resident/ROUNDHOUSE WORKER: Fellow: ? Attending Physician: ? Sites, Fredis Sierra MD ~~~~~~~~~~~~~~~~~~~~~~~~~~~~~~~~~~~~~~~~~~~~~~~~~~~~~~~~~~~~ Fredis Sierra [facility] FAMILY PROGRAM SPECIALIST [facility] documented in this encounter Visit Diagnoses Not on filedocumented in this encounter Administered Medications Inactive Administered Medications - up to 3 most recent administrations Medication Order MAR Action Action Date Dose Rate Site calcium chloride 100 mg/mL (10 %) injection PRN, Starting on Sun06/03/19 at 1316, Until Sun06/03/19 at 1622, Anesthesia Intra-op, Routine Given 06/03/2019 2:35 PM EST 1,000 mg Given 06/03/2019 1:33 PM EST 1,000 mg Given 06/03/2019 1:16 PM EST 1,000 mg ceFAZolin (ANCEF) 2g in dextrose 5% 100 mL 2 g, Intravenous, ONCE, 1 dose, On Sun06/03/19 at 0645, Administer over 30 Minutes, Redose every 3 hours if CrCl is greater than 20. Redose every 8 hours if CrCl is less than 20., Day of Surgery (Day of Procedure), Indication for (Active or Suspected): Prophylaxis Given 06/03/2019 2:50 PM EST 2 g Given 06/03/2019 11:38 AM EST 2 g Given 06/03/2019 8:38 AM EST 2 g ePHEDrine 5 mg/mL multi-dose injection PRN, Starting on Sun06/03/19 at 0905, Until 06/03/19 at 1622, Anesthesia Intra-op, Routine Given 06/03/2019 9:24 AM EST 10 mg Given 06/03/2019 9:05 AM EST 10 mg esmoloL (BREVIBLOC) injection PRN, Starting on Sun06/03/19 at 1550, Until Sun06/03/19 at 1622, Anesthesia Intra-op, Routine Given 06/03/2019 4:25 PM EST 20 mg Given 06/03/2019 3:54 PM EST 10 mg Given 06/03/2019 3:50 PM EST 10 mg fentaNYL 50 mcg/mL multi-dose injection PRN, Starting on Sun06/03/19 at 0856, Until Sun06/03/19 at 1622, Anesthesia Intra-op, Routine Given 06/03/2019 9:01 AM EST 50 mcg Given 06/03/2019 8:56 AM EST 50 mcg glycopyrrolate (ROBINUL) multi-dose injection PRN, Starting on Sun06/03/19 at 1550, Until 06/03/19 at 1622, Anesthesia Intra-op, Routine Given 06/03/2019 3:50 PM EST 0.6 mg heparin (porcine) 1,000 unit/mL injection PRN, Starting on Sun06/03/19 at 1202, Until Sun06/03/19 at 1622, Anesthesia Intra-op, Routine Given 06/03/2019 1:50 PM EST 2,000 Units Given 06/03/2019 12:02 PM EST 10,000 Units HYDROmorphone (Dilaudid) 10 mcg/mL, BUpivacaine (Marcaine) 0.1% [...] AM EST 3 mL/hr 3 mL/hr HYDROmorphone (Dilaudid) 10 mcg/mL, BUpivacaine (Marcaine) 0.1% (0.1 mg/mL) (1/10%) in sodium chloride 0.9% 250 mL epidural Anesthesia Intra-op Given 06/03/2019 2:51 PM EST 6 mLs HYDROmorphone (DILAUDID) injection PRN, Starting on Sun06/03/19 at 1425, Until e 06/03/19 at 1622, Anesthesia Intra-op, Routine Given 06/03/2019 3:24 PM EST 0.2 mg Given 06/03/2019 2:50 PM EST 0.6 mg Given 06/03/2019 2:25 PM EST 0.4 mg lactated ringers infusion CONTINUOUS PRN, Starting on Sun06/03/19 at 0800, Until Sun06/03/19 at 1622, Anesthesia Intra-op New Bag 06/03/2019 2:50 PM ES T New Bag 06/03/2019 8:00 AM EST lidocaine (PF) (XYLOCAINE) 100 mg/5 mL (2 %) injection PRN, Starting on Sun06/03/19 at 0804, Until Sun06/03/19 at 1622, Anesthesia Intra-op, Routine Given 06/03/2019 2:35 PM EST 100 mg Given 06/03/2019 1:16 PM EST 100 mg Given 06/03/2019 8:04 AM EST 100 mg lidocaine-EPINEPHrine 1.5 %-1:200,000 injection Starting on Sun06/03/19 at 0802, Until Sun06/03/19 at 0802, Anesthesia Intra-op, Routine Given 06/03/2019 8:02 AM EST 3 mLs mannitol (less than 50 grams) 25% injection PRN, Starting on Sun06/03/19 at 1207, Until Sun06/03/19 at 1622, Anesthesia Intra-op, Routine Given 06/03/2019 12:07 PM EST 25 g neostigmine (BLOXIVERZ) injection PRN, Starting on Sun06/03/19 at 1550, Until Sun06/03/19 at 1622, Anesthesia Intra-op, Routine Given 06/03/2019 3:50 PM EST 5 mg NORepinephrine (LEVOPHED) injection PRN, Starting on Sun06/03/19 at 1332, Until Sun06/03/19 at 1622, Anesthesia Intra-op, Routine Given 06/03/2019 1:34 PM EST 16 mcg Given 06/03/2019 1:32 PM EST 8 mcg ondansetron (ZOFRAN) injection PRN, Starting on Sun06/03/19 at 1550, Until Sun06/03/19 at 1622, Anesthesia Intra-op, Routine Given 06/03/2019 3:50 PM EST 8 mg PHENYLephrine (DANILO-SYNEPHRINE) 20 mg in sodium chloride 250 mL (standard ADULT & Pedi greater than 20kg) infusion CONTINUOUS PRN, Starting on Sun06/03/19 at 0910, Until Sun06/03/19 at 1622, Anesthesia Intra-op, Routine Rate/Dose Change 06/03/2019 3:43 PM EST 20 mcg/min 15 mL/hr Rate/Dose Change 06/03/2019 3:32 PM EST 40 mcg/min 30 mL/h r Rate/Dose Change 06/03/2019 3:20 PM EST 60 mcg/min 45 mL/h r PHENYLephrine in NS (PF) (DANILO-SYNEPHRINE) 0.8 mg/10 mL (80 mcg/mL) multi-dose injection Syrg PRN, Starting on Sun06/03/19 at 0905, Until Sun06/03/19 at 1622, Anesthesia Intra-op, Routine Given 06/03/2019 11:55 AM EST 80 mcg Given 06/03/2019 11:26 AM EST 160 mcg Given 06/03/2019 9:19 AM EST 80 mcg propofol (DIPRIVAN) 10 mg/mL bolus injection (Anesthesia) PRN, Starting on Sun06/03/19 at 0852, Until Sun06/03/19 at 1622, Anesthesia Intra-op Given 06/03/2019 8:52 AM EST 50 mg Given 06/03/2019 8:04 AM EST 200 mg protamine injection PRN, Starting on Sun06/03/19 at 1439, Until Sun06/03/19 at 1622, Anesthesia Intra-op, Routine Given 06/03/2019 2:39 PM EST 50 mg rocuronium (ZEMURON) multi-dose injection PRN, Starting on 06/03/19 at 0805, Until 06/03/19 at 1622, Anesthesia Intra-op, Routine Given 06/03/2019 1:10 PM EST 20 mg Given 06/03/2019 10:58 AM EST 50 mg Given 06/03/2019 8:05 AM EST 100 mg sodium bicarbonate 8.4 % (1 meq/ml) IV solution PRN, Starting on e 06/03/19 at 1408, Until 06/03/19 at 1622, Anesthesia Intra-op, Routine Given 06/03/2019 2:58 PM EST 50 mEq Given 06/03/2019 2:08 PM EST 50 mEq sodium chloride 0.9% infusion CONTINUOUS PRN, Starting on Sun06/03/19 at 0830, Until 06/03/19 at 1622, Anesthesia Intra-op New Bag 06/03/2019 1:40 PM ES T New Bag 06/03/2019 8:30 AM EST documented in this encounter Care Teams Medical Collections Specialist Relationship Specialty Start Date End Date Tr Hendrix DO [address] [place] [address] PCP - General Family Medicine 05/24/17 documented as of this encounter
--- OUTSIDE RECORDS SUMMARY | 2023-11-13 09:24 | XMS_ITS | Encounter Summary ---
Author Organization [facility] [place] [address] Care Team Providers Care Supervisor Blasting Name Role Phone Tr Hendrix DO Primary Care Provider [phone] Reason for Visit * Reason Comments Medication Refill Encounter Details Date Type Department Care Team (Late st Contact Info) Description 04/08/2019 Refill [place] [address] Maury Duarte MD [facility] [place] [address] Social History Tobacco Use Types Packs/Day Years [...] EST Office Visit Dermatology at [place] [address] [place] [id number] Mustapha Lemos MD [address] [facility] [place] [address] documented as of this encounter Visit Diagnoses Not on filedocumented in this encounter Care Teams Supervisor Blasting Relationship Specialty Start Date End Date Tr Hendrix DO [address] [place] [address] PCP - General Family Medicine 05/24/17 documented as of this encounter
--- OUTSIDE RECORDS SUMMARY | 2023-11-13 09:24 | XMS_ITS | Encounter Summary ---
[place] [address] Care Team Providers Care Seam Hammerer Name Role Phone Tr Hendrix DO Primary Care Provider [phone] Encounter Details Date Type Department Care Team (Latest Contact Info) Description 08/02/2018 11:45 AM EDT Laboratory Appointment Lab [address] [place] [address] Abdominal aortic aneurysm (AAA) without rupture Social [...] 10:00 AM EST Office Visit Dermatology at [place] [address] [facility] [place] [address] Mustapha Lemos MD [address] [facility] [place] [address] documented as of this encounter Procedures Procedure Name Priority Date/Time Associated Diagnosis Comments CREATININE STAT 08/02/2018 11:03 AM EDT Abdominal aortic aneurysm (AAA) without rupture documented in this encounter Results * Creatinine (08/02/2018 11:03 AM EDT) Creatinine 0.99 0.80 - 1.50 mg/dL [facility] Estimated GFR 75 >=60 mL/min/1.7 3 m?? [facility] Comment: The eGFR was calculated using the CKD-EPI equation. As with all creatinine based estimates of kidney function, eGFR values calculated with the CKD-EPI equation are not accurate in patients with acute kidney failure, extremes of body mass or the acutely ill. http://[employer]/[facility]ATIONnkf eGFR 87 >=60 mL/min/1.7 3 m?? [facility] Comment: The eGFR was calculated using the CKD-EPI equation. As with all creatinine based estimates of kidney function, eGFR values calculated with the CKD-EPI equation are not accurate in patients with acute kidney failure, extremes of body mass or the acutely ill. http://[employer]/[facility]ATIONnkf Blood specimen (specimen) 08/02/2018 11:03 AM EDT 08/02/2018 11:24 AM EDT Narrative Resulting Agency Comment Spec In Lab Shonda Baird MD CHEMISTRY ORDER DAVE [facility] [place] [address] documented in this encounter Visit Diagnoses Diagnosis Abdominal aortic aneurysm (AAA) without rupture documented in this encounter Care Teams Seam Hammerer Relationship Specialty Start Date End Date Tr Hendrix DO [address] [place] [address] PCP - General Family Medicine 05/24/17 documented as of this encounter
--- OUTSIDE RECORDS SUMMARY | 2023-11-13 09:24 | XMS_ITS | Encounter Summary ---
[place] [address] Care Team Providers Care Veterinary Radiologist Name Role Phone RumaTr DO Primary Care Provider [phone] Reason for Visit * Reason Onset Date Comments Questions 05/06/2019 Asked to speak w per Duke concerning questions about surgery on 06/03/19 Encounter Details Date Type Department Care Team (Late st Contact Info) Description 05/06/2019 Telephone [place] [phone] Nisha Chapman V RN Questions (Asked to speak with Dr Duke concerning questions about surgery on 06/03/19) Social History Tobacco Use Types Packs/Day Years Used Date Smoking Tobacco: Former Cigarettes 1 50 0 07/29/1965 - 07/30/2015 Smokeless Tobacco: Never Sex and Gender Information Value Date Recorded Sex Assigned at Not on file Gender Identity Not on file Sexual Orientation Not on file documented as of this encounter Miscellaneous Notes * Telephone Encounter - Nisha Chapman RN - 05/06/2019 11:31 AM EST TC from [place] - Requested to speak with Dr Duke concerning his surgery on 06/03/[address]. [address] that [address] Duke call him at his earliest convenience # [phone] Patient has specific questions concerning his surgery on 06/03/19 documented in this encounter Plan of Treatment Upcoming Encounters Date Type Department Care Team (Late st Contact Info) Description 06/20/2024 10:00 AM EST Office Visit Dermatology at [place] [address] [place] [address] Mustapha Lemos MD [address] [place] [address] documented as of this encounter Visit Diagnoses Not on filedocumented in this encounter Care Teams Veterinary Radiologist Relationship Specialty Start Date End Date Tr Hendrix DO [address] [place] [address] PCP - General Family Medicine 05/24/17 documented as of this encounter
--- OUTSIDE RECORDS SUMMARY | 2023-11-13 09:25 | XMS_ITS | Encounter Summary ---
[place] [address] Care Team Providers Care Drawing Checker Name Role Phone Tr Ribera MD Primary Care Provider [phone] Reason for Referral * Diagnostic Test (Routine) - Closed Specialty Diagnoses / Procedures Referred By Contac t Referred To Contact Radiology Diagnoses Abdominal aortic aneurysm without rupture Procedures CTA Of Abdomen And Pelvis With Contrast CT Abdomen And Pelvis With Contrast (GENERIC) Shonda Baird MD [facility] [place] [address] [facility] [place] [address] Referral ID Status Reason Start Date Expiration Date V isits Requested Visits Authorized [id number] Closed Specialty Service Requested 07/26/2015 07/25/2016 1 1 Encounter Details Date Type Department Care Team (Late st Contact Info) Description 06/30/2015 Orders [place] [address] Zorheh Kaur RN Abdominal aortic aneurysm without rupture Social History Tobacco Use Types Packs/Day Years Used Date Smoking Tobacco: Every Day Cigarettes 1 50 Smokeless Tobacco: Never Comments:pack a day Sex and Gender Information Value Date Recorded Sex Assigned at Not on file Gender Identity Not on file Sexual Orientation Not on file documented as of this encounter Plan of Treatment Upcoming Encounters Date Type Department Care Team (Late st Contact Info) Description 06/20/2024 10:00 AM EST Office Visit Dermatology at [place] [address] [place] [phone] Mustapha Lemos MD [address] [place] [address] documented as of this encounter Results * CTA Of Abdomen And Pelvis With Contrast (07/30/2015 12:58 PM EDT) Anatomical Region Laterality Modality Abdomen, Pelvis Computed Tomogra phy Impressions 07/30/2015 1:38 PM EDT IMPRESSION: Increased size of infrarenal abdominal aortic aneurysm and bilateral common iliac artery aneurysms, as described above. Narrative 07/30/2015 1:38 PM EDT EXAMINATION: CTA OF ABDOMEN AND PELVIS WITH CONTRAST CLINICAL HISTORY: enlarging AAA, now 4.8 by US at OSH TECHNIQUE: Helical CT angiogram of the abdomen and pelvis was performed following intravenous administration of 110cc of Omnipaque 350. Multiplanar images were reviewed and 3-D images were generated on an independent workstation. COMPARISON: April 27, 2011 FINDINGS: Vascular: Celiac axis: No stenosis SMA: No stenosis Renal arteries: Single bilateral, no stenosis FILIPPO: No stenosis Juxtarenal aorta: Normal caliber, no stenosis Infrarenal aorta: An infrarenal abdominal aortic aneurysm is noted, increased in dimensions since the previous study. On center line reformatted images it measures approximately 4.5 x 4.7 cm with similar measurements obtained on the straight axial measurements. Previously it measured approximately 3.8 x 4.1 cm. The aneurysm tapers at the level the bifurcation, however, the common iliac arteries are also aneurysmal, as noted below. Right: Common iliac: Aneurysmal, measuring 2.9 cm, compared to 2.5 cm previously. External iliac: No stenosis Internal iliac: Moderate stenosis proximally Common femoral: No stenosis Left: Common iliac: Aneurysmal, measuring approximately 3.0 cm in diameter, compared to 2.0 cm previously. External iliac: No stenosis Internal iliac: Proximally aneurysmal, measuring 1.8 cm in diameter, compared to 1.6 cm previously. Common femoral: No stenosis Abdomen: Stable hepatic cyst seen in the left lobe. Pelvis: No lymphadenopathy, free fluid, or inflammatory process of the bowel or mesentery Procedure Note Choco Walton MD - 07/30/2015 EXAMINATION: CTA OF ABDOMEN AND PELVIS WITH CONTRAST CLINICAL HISTORY: enlarging AAA, now 4.8 by US at OSH TECHNIQUE: Helical CT angiogram of the abdomen and pelvis was performed following intravenous administration of 110cc of Omnipaque 350.Multiplanar images were reviewed and 3-D images were generated on an independent workstation. COMPARISON: April 27, 2011 FINDINGS: Vascular: Celiac axis: No stenosis SMA: No stenosis Renal arteries: Single bilateral, no stenosis FILIPPO: No stenosis Juxtarenal aorta: Normal caliber, no stenosis Infrarenal aorta: An infrarenal abdominal aortic aneurysm is noted,increased in dimensions since the previous study. On center line reformatted imagesit measures approximately 4.5 x 4.7 cm with similar measurements obtained onthe straight axial measurements. Previously it measured approximately 3.8 x4.1 cm. The aneurysm tapers at the level the bifurcation, however, the commoniliac arteries are also aneurysmal, as noted below. Right: Common iliac: Aneurysmal, measuring 2.9 cm, compared to 2.5 cmpreviously. External iliac: No stenosis Internal iliac: Moderate stenosis proximally Common femoral: No stenosis Left: Common iliac: Aneurysmal, measuring approximately 3.0 cm in diameter,compared to 2.0 cm previously. External iliac: No stenosis Internal iliac: Proximally aneurysmal, measuring 1.8 cm in diameter,compared to 1.6 cm previously. Common femoral: No stenosis Abdomen: Stable hepatic cyst seen in the left lobe. Pelvis: No lymphadenopathy, free fluid, or inflammatory process of thebowel or mesentery IMPRESSION IMPRESSION: Increased size of infrarenal abdominal aortic aneurysm and bilateralcommon iliac artery aneurysms, as described above. Shonda Baird MD IMG CT ORDERABL ES * Creatinine (07/30/2015 10:59 AM EDT) Creatinine 1.07 0.80 - 1.50 mg/dL [facility] Comment: Please note that the pediatric reference intervals supplied above were not validated at [facility]. Results from pediatric patients should be interpreted in conjunction to the patient's age, height and muscle mass. Estimated GFR >60 >=60 [facility] Comment: This estimated GFR (eGFR) value was calculated using the MDRD equation which has been validated on patients between the ages of 18 and 70. The MDRD should not be used to assess kidney function in patients < 18 years of age or in patients with extremes of body mass, or in patients with acute kidney failure. This value should be multiplied by 1.2 for patients. For further information please copy and paste the following links into your internet browser. http://Anturis/DHnkdep http://Anturis/DHMCnkf Blood specimen (specimen) 07/30/2015 10:59 AM EDT 07/30/2015 11:15 AM EDT Narrative Resulting Agency Comment Spec In Lab Shonda Baird MD CHEMISTRY ORDER DAVE [facility] [place] [address] documented in this encounter Visit Diagnoses Diagnosis Abdominal aortic aneurysm without rupture Abdominal aneurysm without mention of rupture Abdominal aortic aneurysm without rupture Abdominal aneurysm without mention of rupture documented in this encounter Care Teams Drawing Checker Relationship Specialty Start Date End Date Tr Ribera MD [address] [place] [address] PCP - General 03/22/10 05/23/17 documented as of this encounter
--- OUTSIDE RECORDS SUMMARY | 2023-11-13 09:25 | XMS_ITS | Encounter Summary ---
Author Organization [facility] Address [facility] [place] [address] Care Team Providers Care Watch Engine Operator Name Role Phone Tr Ribera MD Primary Care Provider [phone] Encounter Details Date Type Department Care Team (Latest Contact Info) Description 10/26/2011 12:49 PM EDT - 10/26/2011 11:59 PM EDT Hospital [place] [address] CLINIC, Benton Rhoades MD [facility] HEMATOLOGY/[place] [address] Melanoma Discharge Disposition: Home Social History Tobacco Use [...] Start Date End Date aspirin 81 mg tablet Take 81 mg by mouth daily. 05/18/2016 terazosin (HYTRIN) 2 mg capsule Take 4 mg by mouth daily. 10/18/2010 12/25/2017 GLUCOSAMINE HCL/CHONDRO OKEEFE A (GLUCOSAMINE-CHONDROITIN ORAL) 07/13/2010 12/15/2016 documented as of this encounter Plan of Treatment Upcoming Encounters Date Type Department Care Team (Late st Contact Info) Description 06/20/2024 10:00 AM EST Office Visit Dermatology at [address] [place] [phone] Mustapha Lemos MD [address] [facility] [place] [address] documented as of this encounter Procedures Procedure Name Priority Date/Time Associated Diagnosis Comments DIFFERENTIAL, AUTOMATED Routine 10/26/2011 12:55 PM EDT CBC (WITH DIFF) Routine 10/26/2011 12:55 PM EDT Melanoma LACTATE DEHYDROGENASE Routine 10/26/2011 12:55 PM EDT Melanoma COMPREHENSIVE METABOLIC PANEL (NON-FASTING) Routine 10/26/2011 12:55 PM EDT Melanoma documented in this encounter Results * DIFFERENTIAL, AUTOMATED (10/26/2011 12:55 PM EDT) Neutrophils % 65.9 34.0 - 71.0 % [facility] Neutr Abs (ANC) 5.25 1.50 - 6.30 x10(3)/mcL [facility] Lymphocytes % 24.8 19.0 - 53.0 % [facility] Lymphocytes Abs 2.0 1.0 - 3.6 x10(3)/mcL [facility] Monocytes % 6.0 4.0 - 13.0 % [facility] MILLENNIUM Monocyte Abs 0.5 0.2 - 1.0 x10(3)/mcL [facility] Eosinophils % 2.6 0.0 - 7.0 % [facility]ERN[facility] MILLENNIUM Eosinophils Abs 0.2 0.0 - 0.5 x10(3)/mcL [facility] MILLENNI[facility] Basophils % 0.4 0.0 - 2.0 % [facility] MILLENNIUM Basophils Abs 0.0 0.0 - 0.2 x10(3)/mcL [facility]ILL[facility]NI[facility] Immature Gran % 0.30 0.00 - 0.66 % [facility] Comment: Immature granulocytes(IG's)percentage and absolute count will include metamyelocytes, myelocytes, and promyelocytes. Blood smears from CBCs yielding IG's will be scanned manually for concordance. If this scan disagrees with the automated IG or if promyelocytes are noted, a manual differential will be performed. Melanie Gran Abs 0.02 0.00 - 0.05 x10(3)/mcL [facility] Blood specimen (specimen) 10/26/2011 12:55 PM EDT 10/26/2011 1:05 PM EDT Benton Foley MD HEMATOLOGY ORDERABLE S Performing Organization Address [facility] Co de Phone Number [facility] * Lactate Dehydrogenase (10/26/2011 12:55 PM EDT) LDH 128 110 - 220 unit/L [facility] MILLENNIUM Blood specimen (specimen) 10/26/2011 12:55 PM EDT 10/26/2011 1:05 PM EDT Narrative Resulting Agency Comment Spec In Lab Benton Foley MD CHEMISTRY ORDERABLES Performing Organization Address [facility] de Phone Number [facility] * Comprehensive metabolic panel (non-fasting) (10/26/2011 12:55 PM EDT) Glucose Lvl 92 60 - 199 mg/dL [facility] Comment:Diabetes: >=200 mg/d L plus symptoms BUN 14 10 - 20 mg/dL [facility] MILLENNIUM Creatinine 0.86 0.80 - 1.50 mg/dL [facility] Comment: Please note that the pediatric reference intervals supplied above were not validated at [facility]. Results from pediatric patients should be interpreted in conjunction to the patient's age, height and muscle mass. Sodium 137 135 - 145 mmol/L [facility] MILLENNIUM Potassium 4.0 3.5 - 5.0 mmol/L [facility] Comment: Please note: ??Patients with WBC >100,000 may have falsely elevated Potassium levels. ??For accurate Potassium quantification in these patients send serum separator tube (gold top) for subsequent determinations. ??Contact the Clinical Chemistry Laboratory if there are any questions. Chloride 102 98 - 107 mmol/L [facility]ERN[facility] MILLENNIUM CO2 27 22 - 31 mmol/L [facility] MILLENNI[facility] Anion Gap 8 5 - 15 mmol/L [facility] MILLENNIUM Calcium 9.2 8.5 - 10.5 mg/dL [facility] MILLENNIUM Total Protein 7.1 6.4 - 8.3 gm/dL [facility] MILLENNIUM Albumin 4.6 3.2 - 5.2 gm/dL CERN[facility] MILLENNIUM AST 23 0 - 39 unit/L [facility]ERNER MILLENNIUM ALT 25 0 - 55 unit/L [facility] MILLENNIUM Alk Phos 75 40 - 120 unit/L [facility] MILLENNIUM Total Bilirubin 0.4 0.2 - 1.3 mg/dL [facility] MILLENNIUM Bili, Direct 0.1 0.0 - 0.3 mg/dL [facility] MILLENNIUM Estimated GFR >60 >=60 [facility] Comment: The National Kidney Disease Education Program (NKDEP) has recommended all laboratories report estimated GFR (eGFR) along with plasma creatinine measurements to assist you with recognition of early kidney disease. Caveats: ??Plasma creatinine should be at steady-state (unchanged within the past week). For patients multiply eGFR by 1.2. The MDRD equation was developed using patients between the ages of 18 and 70 years. ?? The MDRD equation has not been validated for patients < 18 years of age and should not be used to assess renal function in the pediatric population. ??The MDRD eGFR equation will also overestimate the true GFR of patients above the age of 70. ??This overestimation is variable but increases with age. At present, NKDEP does NOT recommend using the MDRD equation for drug dosing purposes and pharmacists should continue to use their current dosing methods. In addition, numerical eGFR values greater than 60 ml/min/1.73 square meters should be treated as > 60, and not an exact number due to greater inaccuracies at these higher values. Per NKDEP, they classify normal renal function as any GFR >60ml/min/1.73 square meters; chronic kidney disease when GFR <60, and renal failure when GFR <15. ??This calculation may not be valid for patients with atypical muscle mass (very lean or obese), acute renal failure, and in patients with diabetic kidney disease. References: http://nkdep.nih.gov/resources/NKDEP_Suggestn4Labs_0606_508.pdf http://www.kidney.org/professionals/kls/pdf/faq_gfr.pdf Lynn K, [place] NA, Lewis AK, Gary TS, Berry AD, Butch MELIDA. Relative performance of the MDRD and CKD-EPI equations for estimating glomerular filtration rate among patients with varied clinical presentations. Clin J Am Soc Nephrol;6:1963-72. Blood specimen (specimen) 10/26/2011 12:55 PM EDT 10/26/2011 1:05 PM EDT Narrative Resulting Agency Comment Spec In Lab Benton Foley MD CHEMISTRY ORDERABLES [facility] * (ABNORMAL) CBC (with Diff) (10/26/2011 12:55 PM EDT) WBC 8.0 4.0 - 10.0 x10(3)/mcL CERNER MILLENNIUM RBC 4.52(L) 4.63 - 6.08 x10(6)/mcL CERNER MILLENNIUM Hemoglobin 14.8 13.7 - 17.5 gm/dL CERNER MILLENNIUM Hematocrit 41.7 40.0 - 51.0 % CERNER MILLENNIUM MCV 92.3(H) 79.0 - 92.0 fL CERNER MILLENNIUM MCH 32.7(H) 25.6 - 32.2 pg CERNER MILLENNIUM MCHC 35.5 32.0 - 36.5 gm/dL CERNER MILLENNIUM Platelets 188 145 - 370 x10(3)/mcL CERNER MILLENNIUM RDWSD 43.3 35.0 - 46.0 fL CERNER MILLENNIUM RDWCV 12.9 10.9 - 14.4 % CERNER MILLENNIUM MPV 10.2 9.0 - 12.0 fL [facility] MILLENNIUM Blood specimen (specimen) 10/26/2011 12:55 PM EDT 10/26/2011 1:05 PM EDT Narrative Resulting Agency Comment Spec In Lab Benton Foley MD HEMATOLOGY ORDERABLE S [facility] documented in this encounter Visit Diagnoses Diagnosis Melanoma Melanoma of skin, site unspecified documented in this encounter Care Teams Watch Engine Operator Relationship Specialty Start Date End Date Tr Ribera MD [address] [place] [address] PCP - General 03/22/10 05/23/17 documented as of this encounter
--- OUTSIDE RECORDS SUMMARY | 2023-11-13 09:25 | XMS_ITS | Encounter Summary ---
[place] [address] Care Team Providers Care Lead Warehouse Associate Name Role Phone Tr Hendrix DO Primary Care Provider [phone] Encounter Details Date Type Department Care Team (Late st Contact Info) Description 05/29/2018 Orders Only [place] [address] Anika Farrell Social History Tobacco Use Types Packs/Day Years [...] 10:00 AM EST Office Visit Dermatology at [place] [address] [place] [address] Mustapha Lemos MD [address] [facility] [place] [address] documented as of this encounter Visit Diagnoses Not on filedocumented in this encounter Care Teams Lead Warehouse Associate Relationship Specialty Start Date End Date Tr Hendrix DO [address] [place] [address] PCP - General Family Medicine 05/24/17 documented as of this encounter
--- OUTSIDE RECORDS SUMMARY | 2023-11-13 09:25 | XMS_ITS | Encounter Summary ---
[place] [address] Care Team Providers Care Broadcast Operations Engineer Name Role Phone Tr Ribera MD Primary Care Provider [phone] Reason for Visit * Reason Comments Skin Check Encounter Details Date Type Department Care Team (Late st Contact Info) Description 07/05/2011 8:45 AM EST Office Visit Dermatology [address] [place] [address] [address] [place], [place] [address] uMstapha Lemos MD [address] [facility] [place] [address] History of malignant melanoma (Primary Dx); Acrochordon Social History Tobacco Use Types Packs/Day Years Used Date Smoking Tobacco: Every Day Cigarettes 1 50 Smokeless Tobacco: Never Comments:pack a day Sex and Gender Information Value Date Recorded Sex Assigned at Not on file Gender Identity Not on file Sexual Orientation Not on file documented as of this encounter Progress Notes * Mustapha Lemos MD - 07/05/2011 9:05 AM EST Problem: 1. Skin checkup. 2. History of malignant melanoma, left flank, 0.98mm Breslow depth with extension down a follicle to deep margin, negative sentinel lymph node biopsy 06/24/2010. 3. Positive family history of malignant melanoma in mother and brother. 4. History of growing up on [place] with frequent sun exposure and sunburns. 5. History of malignant melanoma in situ, right shoulder. Terry follows up and is being seen by me on a q. three-month basis. He was seen in March by Marta Heath, so he is being checked on a q 3 month basis. He has had no further issues with his melanoma. He has not noted any new lesions of concern. Physical examination today reveals a pleasant now 66-year-old gentleman with well healed surgical scar on the left flank, also on the left superior shoulder. He has benign examination of the head, neck, chest, back, hands, arms, forearms, thighs and calves. There is no cervical or axillary adenopathy. The left anterior axillary line sentinel lymph node biopsy scar remains well healed. Assessment & Plan: History of malignant melanoma, left flank and melanoma in situ, left shoulder. a. No evidence of recurrence. b. Patient reassured about today's benign examination. c. RTC in six months here for repeat check. He will be seen in October at [facility]. Tags, nape of neck and right base of neck. a. Today removed with snip biopsy at patient request. b. Reinforced sun avoidance precautions. Copy: MD Marta Desai ARNP documented in this encounter Plan of Treatment Upcoming Encounters Date Type Department Care Team (Late st Contact Info) Description 06/20/2024 10:00 AM EST Office Visit Dermatology at [address] [address] Mustapha Lemos MD [address] [place] [address] [place] [address] documented as of this encounter Visit Diagnoses Diagnosis History of malignant melanoma- Primary Personal history of malignant melanoma of skin Acrochordon Unspecified hypertrophic and atrophic condition of skin documented in this encounter Care Teams Broadcast Operations Engineer Relationship Specialty Start Date End Date Tr Ribera MD [address] [place] [address] PCP - General 03/22/10 05/23/17 documented as of this encounter
--- OUTSIDE RECORDS SUMMARY | 2023-11-13 09:25 | XMS_ITS | Encounter Summary ---
[place] [address] Care Team Providers Care Baling Machine Operator Name Role Phone Tr Ribera MD Primary Care Provider [phone] Encounter Details Date Type Department Care Team (Late st Contact Info) Description 12/15/2016 Orders [place] [address] Seth Wall RN Abdominal aortic aneurysm (AAA) without rupture [...] 10:00 AM EST Office Visit Dermatology at [place] [address] [facility] [place] [address] Mustapha Lemos MD [address] [facility] DERMATOLOGY [place], [place] [id number] documented as of this encounter Results * AAA Duplex, Complete/Bilateral (12/25/2017 8:45 AM EDT) VB Text Report Department: Vascular Surgery Lab Patient: [id number] (STORM NOLASCO) CPT: 87581 ICD10: I71.4 Referring Physician: ERIN BAIRD ?? Phone: Indications: Patient with known AAA and bilateral common iliac artery aneurysms, ? change ICD10 Diagnosis Code: I71.4 Findings: Infra Renal Aorta ? PSV (cm/s): 89 ? EDV (cm/s): 16 Distal Aorta ? PSV (cm/s): 24 ? EDV (cm/s): 4 ? Diam AP (cm): 4.9 ? Diam Lateral (cm): 4.8 Common Iliac Artery, Proximal, Right ? PSV (cm/s): 86 ? EDV (cm/s): 2 ? Diam AP (cm): 3.4 ? Diam Lateral (cm): 3.1 Common Iliac Artery, Proximal, Left ? PSV (cm/s): 115 ? EDV (cm/s): 19 ? Diam AP (cm): 3.3 ? Diam Lateral (cm): 3.1 Interpretation: Patent infrarenal abdominal aorta aneurysm measuring approximately 4.9 cm x 4.8 cm; previously 4.7 cm x 4.8 cm on 12/15/2016. There is mural thrombus/laminate d plaque noted within the aneurysm sac. The [...] cm; previously 2.8 cm x 2.8 cm. Previous AAAs with change from previous value: Date ? DIAM AP ?DIAM LAT ? 4.70 ? 4.80 Current Exam ?? 4.90 (+0.20) ?? 4.78 (-0.02) Electronically Signed by: ERIN BAIRD on 2017-12-27 02:05:07 PM [facility] VB Text Report End of Report [facility] 12/25/2017 8:45 AM EDT Erin Baird MD VASCULAR ORDERA BLES Performing Organization Address City/State/[facility] Co de Phone Number [facility] documented in this encounter Visit Diagnoses Diagnosis Abdominal aortic aneurysm (AAA) without rupture documented in this encounter Care Teams Baling Machine Operator Relationship Specialty Start Date End Date Tr Ribera MD [address] [place] [address] PCP - General 03/22/10 05/23/17 documented as of this encounter
--- OUTSIDE RECORDS SUMMARY | 2023-11-13 09:25 | XMS_ITS | Encounter Summary ---
[place] [address] Care Team Providers Care Pig Furnace Operator Name Role Phone HeberjenniferTr DO Primary Care Provider [phone] Reason for Visit * Reason Comments Follow-up Skin Check Encounter Details Date Type Department Care Team (Late st Contact Info) Description 05/24/2018 10:00 AM EST Office Visit Dermatology at [address] [address] Mustapha Lemos MD [address] [facility] DERMATOLOGY [place], [place] [id number] Seborrheic dermatitis; History of malignant melanoma; Dermatitis [...] Progress Notes * Mustapha Lemos MD - 05/24/2018 10:00 AM EST Problem: 1. Follow-up for yearly skin checkup. 2. History of malignant melanoma, left flank, 0.98 mm Breslow depth, with extension down to deep margin, negative sentinel lymph node biopsy May 2010 3. History of malignant normocytic, right shoulder, June 2010 4. History of going up on [place] with frequent sun exposure 5. Recalcitrant seborrheic dermatitis Terry follows up has been doing well. He still is fighting with seborrheic dermatitis. The ketoconazole cream is not helped for the facial involvement. The Aclovate cream made it worse. The combination of Cutar lotion and other topicals did not help. We have not yet tried Elidel or Protopic. He does like to ketoconazole 2% shampoo for scalp. He uses that once a week and it works great he is not noted any new skin lesions of concern. He started to wear a full facial harris because it seems to reduce the severity of his facial seborrheic dermatitis. He hopes this summer not to have to wear a full facial harris though! He has noticed a painful right preauricular cheek papule Physical examination was a pleasant 73-year-old gentleman who has benign examination of the head and the neck the chest the back the hands the arms deforms thighs and the calves. The surgical excision sites remain well-healed without evidence of recurrent pigmentation. He continues to have mild seborrheic dermatitis of his face. He does have a 8 mm erythematous papule on the right preauricular cheek. Assessment and plan History of malignant melanomas, left flank and melanoma in situ, right shoulder 1. No evidence of recurrence 2. Patient reassured 3. Continue our yearly skin checkups. Seborrheic dermatitis, facial 1. Begin using seborrheic ketoconazole 2% shampoo to his face on a nightly basis. Allow lather to sit after applying to eyebrows and full harris areas for 2-3 minutes, then rinse out. 2. If no improvement with this would then recommend Elidel or Protopic. I have asked patient to contact me in a week or 2 if he is not seeing improvement otherwise return to clinic in 1 year for repeat check Seborrheic dermatitis, scalp 1. Ketoconazole 2% shampoo used once a week is working well for him. 2. We will call in 120 mL's for a 3-month supply with 3 refills. Will be called into his right aid in [place] Painful right preauricular cheek papule 1. Rule out SCCa vs BCCa. Shave biopsy with C and D x 3 performed. 2. Wound care instructions and supplies given 3. After curettage, the site measured 1 cm in diameter. 4. RTC in one year for repeat skin check. Cc: Tr Hendrix DO documented in this encounter Plan of Treatment Upcoming Encounters Date Type Department Care Team (Late st Contact Info) Description 06/20/2024 10:00 AM EST Office Visit Dermatology at [place] [address] [place] [address] Mustapha Lemos MD 580 [facility] [place] [address] documented as of this encounter Visit Diagnoses Diagnosis Seborrheic dermatitis Seborrheic dermatitis, unspecified History of malignant melanoma Personal history of malignant melanoma of skin Dermatitis Contact dermatitis and other eczema, due to unspecified cause documented in this encounter Care Teams Pig Furnace Operator Relationship Specialty Start Date End Date Tr Hendrix DO [address] [place] [address] PCP - General Family Medicine 05/24/17 documented as of this encounter
--- OUTSIDE RECORDS SUMMARY | 2023-11-13 09:25 | XMS_ITS | Encounter Summary ---
[place] [address] Care Team Providers Care Fork Operator Name Role Phone Tr Hendrix DO Primary Care Provider [phone] Encounter Details Date Type Department Care Team (Late st Contact Info) Description 05/24/2017 Refill Dermatology at [address] [phone] Yvrose Mcwilliams LPN Social History Tobacco Use [...] 10:00 AM EST Office Visit Dermatology at [address] [phone] Mustapha Lemos MD 580 [facility] [place] [address] documented as of this encounter Visit Diagnoses Not on filedocumented in this encounter Care Teams Fork Operator Relationship Specialty Start Date End Date Tr Hendrix DO [address] [place] [address] PCP - General Family Medicine 05/24/17 documented as of this encounter
--- OUTSIDE RECORDS SUMMARY | 2023-11-13 09:25 | XMS_ITS | Encounter Summary ---
Author [facility] [place] [address] Care Team Providers Care Sample Book Maker Name Role Phone Tr Hendrix DO Primary Care Provider [phone] Encounter Details Date Type Department Care Team (Late st Contact Info) Description 11/27/2017 Orders Only [place] [address] Kevin Oliveira APRN [facility] [address] [place]STRO[place] [address] Social History Tobacco Use Types Packs/Day Years [...] 10:00 AM EST Office Visit Dermatology at [place] [address] [facility] [place] [phone] Mustapha Lemos MD [address] [facility] DERMATOLOGY [place], [place] [id number] documented as of this encounter Visit Diagnoses Not on filedocumented in this encounter Care Teams Sample Book Maker Relationship Specialty Start Date End Date Tr Hendrix DO [address] [place] [address] PCP - General Family Medicine 05/24/17 documented as of this encounter
--- OUTSIDE RECORDS SUMMARY | 2023-11-13 09:25 | XMS_ITS | Encounter Summary ---
Author Organization [facility] Address [facility] [place] [address] Care Team Providers Care Concrete Mixing Truck Driver Name Role Phone Tr Hendrix DO Primary Care Provider [phone] Encounter Details Date Type Department Care Team (Late st Contact Info) Description 12/25/2017 10:30 AM EDT Office [place] [address] Shonda Esposito MD [facility] [place] [address] Abdominal aortic aneurysm (AAA) without rupture Social History Tobacco Use Types Packs/Day Years Used Date Smoking Tobacco: Former Cigarettes 1 50 0 07/29/1965 - 07/30/2015 Smokeless Tobacco: Never Sex and Gender Information Value Date Recorded Sex Assigned at Not on file Gender Identity Not on file Sexual Orientation Not on file documented as of this encounter Progress Notes * Stoney Iglesias MD - 12/25/2017 10:30 AM EDT OUTPATIENT VASCULAR SURGERY CONSULTATION Reason for Visit: AAA History of Present Illness:Storm Nolasco is a 70 yo M referred by Tr Hendrix DO who we are seeing in follow-up for known AAA and bilateral iliac artery aneurysms. Aneurysms have been followed for several years with US but was referred to [facility] Vascular Surgery when the aneurysm reached 4.8cm last year. Patient presents today for 1 year follow up. Patient reports no interval changes to his health. No recent CP, SOB, BALDERAS, PND, orthopnea. Maintained on daily ASA, statin. Quit smoking July 30, 2015. Atherosclerotic Risk Factors: (n) DM (y) HTN - controlled with diet and exercise (y) Hyperlipidemia reports that he quit smoking about 2 years ago. His smoking use included Cigarettes. He has a 50.00pack-year smoking history. He has never used smokeless tobacco. Cardiovascular History: (n) Previous [place] (n) Angina (n) CHF (n) Arrythmia (n) copd Patient Active Problem List Diagnosis Code ??? Malignant melanoma of skin C43.9 ??? Hypertension I10 ??? History of malignant melanoma Z85.820 ??? Seborrheic dermatitis L21.9 ??? Hyperlipidemia E78.5 ??? Adiposity E66.9 ??? History of BPH Z87.438 ??? Tobacco dependence syndrome F17.200 ??? Hemangioma of liver D18.03 ??? Abdominal aortic aneurysm I71.4 ??? Adenomatous polyp of colon D12.6 ??? Benign prostatic hyperplasia with urinary obstruction N40.1, N13.8 ??? Benign prostatic hyperplasia without urinary obstruction N40.0 ??? Increased frequency of urination R35.0 Current Outpatient Prescriptions: ??? terazosin (HYTRIN) 5 mg Capsule, Bedtime, Disp: , Rfl: ??? ketoconazole (NIZORAL) 2 % Shampoo, , Disp: , Rfl: ??? ibuprofen (ADVIL;MOTRIN) 600 mg Tablet, Three times a day, Disp: , Rfl: ??? atorvastatin (LIPITOR) 80 mg Tablet, Daily, Disp: , Rfl: ??? alclometasone (ACLOVATE) 0.05 % Ointment, 60 g., Disp: , Rfl: ??? Llywhizi3-Hrrkol2-Czawx therm. (VSL#3) 112.5 billion cell Capsule, Take 1 capsule by mouth 2 times daily., Disp: 60 capsule, Rfl: 5 ??? PROCTO-MED HC 2.5 % cream with perineal applicator, APPLY RECTALLY TWICE DAILY FOR ANAL PROBLEMS, Disp: , Rfl: 0 ??? ketoconazole (NIZORAL) 2 % Shampoo, Apply as shampoo once daily (three months supply), Disp: 360 mL, Rfl: 3 ??? aspirin 81 mg Tablet, Delayed Release (E.C.), Daily, Disp: , Rfl: ??? desonide (DESOWEN) 0.05 % Cream, applly to dry scaling areas 1-2 daily, prn, Disp: 30 g, Rfl: 3 Allergies Allergen Reactions ??? Hydrochlorothiazide ??? Lisinopril Review of Systems: Constitutional (weight change, fever) - Denies Neuro (dizziness, seizures, numbness, tingling) - Denies Eyes (vision) - Denies Ears, nose, throat (hearing) - Denies Cardiovascular (CP) - Denies Respiratory (SOB) - Denies GI (abd pain, nausea, emesis, blood in stool) - Denies (hematuria, dysuria, frequency) - Denies Muscoloskeletal (extremity pain, weakness) - Denies Skin (ulcers, rashes) - Denies Functional Status/Social Hx: Lives at home, Retired, Drives Car, quit smoking July 2015 Family Hx: Negative for Thrombosis, Bleeding Disorders, no family h/o AAA Physical Exam: There were no vitals taken for this visit. General - NAD, appears younger than stated age Neuro - Alert and Oriented, Motor Sensory grossly intact Skin - No prominent markings or lesions Ear, Nose, Throat - No masses, No lesions Cardiac - RRR, no murmurs Lungs - Clear Abd - Soft, obese, NT, ND, + palpable pulsatile mass Musculoskeletal- full ROM upper and lower extremities Psych- alert oriented X3 , Extremities - Warm, pink, no edema, brisk capillary refill Vascular Exam: R L Carotid 2/2 2/2 Radial 2/2 2/2 Femoral 2/2 2/2 Popliteal 2/2 2/2 DP 2/2 2/2 PT 2/2 2/2 Labs: Recent Results (from the past 72 hour(s)) AAA Duplex, Complete/Bilateral Result Value Ref Range VB Text Report Department: Vascular Surgery Lab Patient: [id number] (NOLASCO, STORM) CPT: 96743 ICD10: I71.4 Referring Physician: SHONDA ESPOSITO Phone: Indications: Patient with known AAA and bilateral common iliac artery aneurysms, ? change ICD10 Diagnosis Code: I71.4 Findings: Infra Renal Aorta PSV (cm/s): 89 EDV (cm/s): 16 Distal Aorta PSV (cm/s): 24 EDV (cm/s): 4 Diam AP (cm): 4.9 Diam Lateral (cm): 4.8 Common Iliac Artery, Proximal, Right PSV (cm/s): 86 EDV (cm/s): 2 Diam AP (cm): 3.4 Diam Lateral (cm): 3.1 Common Iliac Artery, Proximal, Left PSV (cm/s): 115 EDV (cm/s): 19 Diam AP (cm): 3.3 Diam Lateral (cm): 3.1 Interpretation: Patent infrarenal abdominal aorta aneurysm measuring approximately 4.9 cm x 4.8 cm; previously 4.7 cm x 4.8 cm on 12/15/2016. There is mural thrombus/laminated plaque noted within the aneurysm sac. The proximal to mid aort a was not clearly visualized due to overlying [...] AAAs with change from previous value: Date DIAM AP DIAM LAT 4.70 4.80 Current Exam 4.90 (+0.20) 4.78 (-0.02) VB Text Report End of Report CTA 07/30/15: FINDINGS: Vascular: Celiac axis: No stenosis SMA: [...] inflammatory process of the bowel or mesentery Assessment and Plan: 70 yo M with 4.p cm AAA as well as bilateral CHANCE aneurysm (R 3.4 L3.3). While AAA remains <5.5cm will plan to obtain CTA in 6 months for both more thorough size determination as well as anatomic delineation which will be helpful in planning for operative repair (last CTA >2 years ago). Continue daily ASA, statin, and continued tobacco abstinence. Signs and symptoms of symptomatic aneurysm and aneurysm rupture reviewed and patient reported understanding. Marilu Iglesias Vascular Surgery, PGY3 Pager #[phone] * Shonda Esposito MD - 12/25/2017 10:30 AM EDT Vascular Surgery Attending Note: Pt seen and examined with vascular resident and I agree with findings below. US images reviewed. Royerhas small growth in AAA, now 4.9 cm as well as in his common iliac arteries (R 3.4cm, L 3.3 cm). Hewill follow-up in 6 months with a CTA. documented in this encounter Plan of Treatment Upcoming Encounters Date Type Department Care Team (Late st Contact Info) Description 06/20/2024 10:00 AM EST Office Visit Dermatology at [place] [address] [place] [phone] Mustapha Lemos MD [address] [facility] [place] [address] documented as of this encounter Visit Diagnoses Diagnosis Abdominal aortic aneurysm (AAA) without rupture documented in this encounter Care Teams Concrete Mixing Truck Driver Relationship Specialty Start Date End Date Tr Hendrix DO [address] [place] [address] PCP - General Family Medicine 05/24/17 documented as of this encounter
--- OUTSIDE RECORDS SUMMARY | 2023-11-13 09:25 | XMS_ITS | Encounter Summary ---
[place] [address] Care Team Providers Care Brand Strategy Manager Name Role Phone Tr Ribera MD Primary Care Provider [phone] Reason for Visit * Reason Comments Skin Check Encounter Details Date Type Department Care Team (Late st Contact Info) Description 05/24/2015 11:30 AM EST Office Visit Dermatology at [address] [address] Mustapha Lemos MD [address] [facility] DERMATOLOGY [place], [place] [phone] History of malignant melanoma; Seborrheic dermatitis Social History Tobacco Use Types Packs/Day Years Used Date Smoking Tobacco: Every Day Cigarettes 1 50 Smokeless Tobacco: Never Comments:pack a day Sex and Gender Information Value Date Recorded Sex Assigned at Not on file Gender Identity Not on file Sexual Orientation Not on file documented as of this encounter Patient Instructions * Patient Instructions* Michelle Hearn LPN - 05/24/2015 11:51 AM EST Images from the original note were not included. [facility] Skin Cancer Prevention: After Your Visit Your Care Instructions Skin cancer is the abnormal growth of cells in the skin. It usually appears as a growth that changes in color, shape, or size. This can be a sore that does not heal or a change in a wart or a mole. Skin cancer is almost always curable when found early and treated. So it is important to see your doctor if you have any of these changes in your skin. Skin cancer is the most common type of cancer. It often appears on areas of the body that have beenexposed to the sun, such as the head, face, neck, back, chest, or shoulders. Follow-up care is a mejias part of your treatment and safety. Be sure to make and go to all appointments, and call your doctor if you are having problems. It's also a good idea to know your test resultsand keep a list of the medicines you take. How can you care for yourself at home? ?? Wear a wide-brimmed hat and long sleeves and pants if you are going to be outdoors for a long time. ?? Avoid the sun between 10 a.m. and 4 p.m., which is the peak time for UV rays. ?? Wear sunscreen on exposed skin. Make sure the sunscreen blocks ultraviolet rays (both UVA and UVB) and has a sun protection factor (SPF) of at least 15. Use it every day, even when it is cloudy. Some doctors may recommend a higher SPF, such as 30. ?? Do not use tanning booths or sunlamps. ?? Use lip balm or cream that has sun protection factor (SPF) to protect your lips from getting sunburned or getting cold sores. ?? Wear sunglasses that block UV rays. When should you call for help? Watch closely for changes in your health, and be sure to contact your doctor if: ?? You are concerned about any problem areas on your skin. ?? You notice a change in a mole or skin growth. For example: ?? It gets bigger. ?? It develops uneven borders. ?? It gets thicker, raised, or worn down. ?? It changes color. ?? It starts to bleed easily. Where can you learn more? Visit our health information library at [email or web address]/Splend[employer] You can also view health information on [employer], your personal patient account. Log in or sign up today. Enter P392 in the search box to learn more about Skin Cancer Prevention: After Your Visit. ?? [id number] [employer]. Care instructions adapted under license by [facility]. This care instruction is for use with your licensed healthcare professional. If you have questions about a medical condition or this instruction, always ask your healthcare professional. [employer] disclaims any warranty or liability for your use of this information. Content Version: 10.4.108303; Current as of: March 13, 2014 documented in this encounter Progress Notes * Mustapha Lemos MD - 05/24/2015 12:03 PM EST Problem: 1. Yearly skin checkup. 2. History of malignant melanoma, left flank, 0.98 mm Breslow depth with extension down to the follicle through the deep margin. Negative sentinel lymph node biopsy, June 24, 2010. 3. History of malignant melanoma, right shoulder, June 2010. 4. History of growing up on [place] with frequent sun exposure. Terry follows up and has been doing well. He has had a good year. He has not noted any new lesions of concern. Physical examination reveals a pleasant now 70-year-old gentleman who has a well-healed surgical scar on the left flank/left back and on his right shoulder. There is no evidence of recurrent pigmentation at these sites. Examination of the head and the neck, the chest, the back, hands, arms, forearms, thighs, and calves is benign. There is no cervical or axillary adenopathy. The left anterior axillary line sentinel lymph node biopsy scar remains well healed. He continues to have mild seborrheic dermatitis of the face and presternal chest. Assessment and Plan: 1. History of malignant melanomas, left flank, and melanoma in situ, right shoulder. a. No evidence of recurrence. b. Patient reassured. c. Continue yearly checkups. Return to clinic reminder one year. 2. Seborrheic dermatitis, facial, scalp, presternal chest. a. Recommend the patient begin a trial of ketoconazole 2% cream, applying on a b.i.d. basis to affected areas; 45 grams dispensed with three refills. Return to clinic in one year. COPY: Tr Ribera M.D. documented in this encounter Plan of Treatment Upcoming Encounters Date Type Department Care Team (Late st Contact Info) Description 06/20/2024 10:00 AM EST Office Visit Dermatology at [place] [address] [place] [address] Mustapha Lemos MD [address] [facility] [place] [address] documented as of this encounter Visit Diagnoses Diagnosis History of malignant melanoma Personal history of malignant melanoma of skin Seborrheic dermatitis Seborrheic dermatitis, unspecified documented in this encounter Care Teams Brand Strategy Manager Relationship Specialty Start Date End Date Tr Ribera MD [address] [place] [address] PCP - General 03/22/10 05/23/17 documented as of this encounter
--- OUTSIDE RECORDS SUMMARY | 2023-11-13 09:25 | XMS_ITS | Encounter Summary ---
[place] [address] Care Team Providers Care Vice President Of Sales Name Role Phone Tr Ribera MD Primary Care Provider [phone] Reason for Visit * Reason Comments Skin Check Encounter Details Date Type Department Care Team (Late [facility] Info) Description 01/26/2012 8:30 AM EDT Office Visit Dermatology [address] [place] [address] [address] [place] [address] Mustapha Lemos MD [address] [facility] [place] [address] History of malignant melanoma (Primary Dx) Social History Tobacco Use Types Packs/Day Years Used Date Smoking Tobacco: Every Day Cigarettes 1 50 Smokeless Tobacco: Never Comments:pack a day Sex and Gender Information Value Date Recorded Sex Assigned at Not on file Gender Identity Not on file Sexual Orientation Not on file documented as of this encounter Progress Notes * Mustapha Lemos MD - 01/26/2012 8:42 AM EDT Dictated documented in this encounter Miscellaneous Notes * Miscellaneous - Lorenzo Guan - 01/31/2012 4:34 PM EDT documented in this encounter Plan of Treatment Upcoming Encounters Date Type Department Care Team ([facility] Contact Info) Description 06/20/2024 10:00 AM EST Office Visit Dermatology at [place] [address] [place] [address] Mustapha Lemos MD [address] [place] [address] documented as of this encounter Visit Diagnoses Diagnosis History of malignant melanoma- Primary Personal history of malignant melanoma of skin documented in this encounter Care Teams Vice President Of Sales Relationship Specialty Start Date End Date Tr Ribera MD [address] [place] [address] PCP - General 03/22/10 05/23/17 documented as of this encounter
--- OUTSIDE RECORDS SUMMARY | 2023-11-13 09:25 | XMS_ITS | Encounter Summary ---
[place] [address] Care Team Providers Care Yardage Tufting Machine Operator Name Role Phone Tr Ribera MD Primary Care Provider [phone] Encounter Details Date Type Department Care Team (Late st Contact Info) Description 06/30/2015 Abstract [place] [address] Zohreh Kaur, RN Social History Tobacco Use Types Packs/Day [...] 10:00 AM EST Office Visit Dermatology at [address] [address] Mustapha Lemos MD [address] [facility] [place] [address] documented as of this encounter Visit Diagnoses Not on filedocumented in this encounter Care Teams Yardage Tufting Machine Operator Relationship Specialty Start Date End Date Tr Ribera MD [address] [facility] [place] [place] [address] PCP - General 03/22/10 05/23/17 documented as of this encounter
--- OUTSIDE RECORDS SUMMARY | 2023-11-13 09:25 | XMS_ITS | Encounter Summary ---
Author Organization [facility] [address] Care Team Providers Care Compound Worker Name Role Phone Tr Ribera MD Primary Care Provider [phone] Encounter Details Date Type Department Care Team (Late Contact Info) Description 04/27/2011 11:19 AM EST - 04/27/2011 12:11 PM EST Hospital [place] [id number] CLINIC, DR ANDERSEN Melanoma Social History Tobacco Use Types Packs/Day Years [...] 07/13/2010 12/15/2016 documented as of this encounter Miscellaneous Notes * Miscellaneous - Provider, Scanning - 05/03/2011 8:33 AM EST documented in this encounter Plan of Treatment Upcoming Encounters Date Type Department Care Team (Late st Contact Info) Description 06/20/2024 10:00 AM EST Office Visit Dermatology at [address] [phone] Mustapha Lemos MD [address] [facility] [place] [address] documented as of this encounter Procedures Procedure Name Priority Date/Time Associated Diagnosis Comments CT CHEST ABDOMEN PELVIS W CONTRAST (GENERIC) Routine 04/27/2011 2:02 PM EST Melanoma of skin, site unspecified documented in this encounter Results * CT CHEST, ABDOMEN, & PELVIS WITH CONTRAST (04/27/2011 2:02 PM EST) Anatomical Region Laterality Modality Computed Tomogra phy 04/27/2011 2:02 PM EST Impressions 04/28/2011 4:49 PM EST IMPRESSION: 1. No evidence of metastatic disease seen. ?? 2. 4.1 cm lower abdominal aortic aneurysm with ectatic common iliac arteries bilaterally. ?? 3. Evidence of old granulomatous disease. Narrative 04/28/2011 4:[address] SCAN OF THE CHEST, ABDOMEN, AND PELVIS: ?? HISTORY: ??Melanoma restaging. ?? TECHNIQUE: ??The study was performed utilizing 110 cc of Omnipaque-350 intravenous contrast. Oral contrast was also utilized. Multiplanar reformatted images were reviewed. ?? CONTRAST: ??110 cc of Omnipaque-350. COMPARISON: ??CT scan of the abdomen and pelvis dated 09/30/10 from [facility]. ?? FINDINGS: CT SCAN OF THE CHEST: ??No evidence of pulmonary nodules or pleural effusion is seen. There are small calcified mediastinal and left hilar lymph nodes suggesting prior granulomatous infection. There is a small amount of coronary artery calcification. No enlarged hilar, mediastinal, or axillary lymph nodes are seen. ?? CT SCAN OF THE ABDOMEN: ??There is a 2.7 cm cyst in the lateral segment of the left lobe of the liver. There are several splenic calcifications again consistent with granulomatous infection. There is a 4.1 cm infrarenal abdominal aortic aneurysm that extends to the aortic bifurcation. The left common iliac artery is mildly ectatic measuring 2 cm, while the right measures 2.5 cm in greatest diameter. The liver, spleen, pancreas, adrenal glands, and kidneys are normal with the exception of a small right renal cyst and the aforementioned hepatic cyst. ?? CT SCAN OF THE PELVIS: ??There are surgical clips in the right lower quadrant. There are scattered diverticula in the distal colon without evidence of diverticulitis. ?? Procedure Note Sukhi Espinoza MD - 04/28/2011 CT SCAN OF THE CHEST, ABDOMEN, AND PELVIS: HISTORY: Melanoma restaging. TECHNIQUE: The study was performed utilizing 110 cc of Omnipaque-350 intravenous contrast. Oral contrast was also utilized. Multiplanarreformatted images were reviewed. CONTRAST: 110 cc of Omnipaque-350. COMPARISON: CT scan of the abdomen and pelvis dated 09/30/10 [facility]. FINDINGS: CT SCAN OF THE CHEST: No evidence of pulmonary nodules or pleuraleffusion is seen. There are small calcified mediastinal and left hilar lymph nodes suggesting prior granulomatous infection. There is a small amount ofcoronary artery calcification. No enlarged hilar, mediastinal, or axillary lymphnodes are seen. CT SCAN OF THE ABDOMEN: There is a 2.7 cm cyst in the lateral segment ofthe left lobe of the liver. There are several splenic calcifications again consistent with granulomatous infection. There is a 4.1 cm infrarenalabdominal aortic aneurysm that extends to the aortic bifurcation. The left commoniliac artery is mildly ectatic measuring 2 cm, while the right measures 2.5 cmin greatest diameter. The liver, spleen, pancreas, adrenal glands, andkidneys are normal with the exception of a small right renal cyst and theaforementioned hepatic cyst. CT SCAN OF THE PELVIS: There are surgical clips in the right lowerquadrant. There are scattered diverticula in the distal colon without evidence of diverticulitis. IMPRESSION IMPRESSION: 1. No evidence of metastatic disease seen. 2. 4.1 cm lower abdominal aortic aneurysm with ectatic common iliacarteries bilaterally. 3. Evidence of old granulomatous disease. Benton Foley MD IMG CT ORDERABLES documented in this encounter Visit Diagnoses Diagnosis Melanoma Melanoma of skin, site unspecified documented in this encounter Administered Medications Inactive Administered Medications - up to 3 most recent administrations Medication Order MAR Action Action Date Dose Rate Site iohexol (OMNIPAQUE) 350 mg/mL injection 17,500 mg 17,500 mg (50 mL), Oral, ONCE PRN, 1 dose, Starting on Aby 04/27/11 at 1342, Until Aby 04/27/11 at 1130, Per Protocol, Routine Given 04/27/2011 11:30 AM EST 17,500 mg iohexol (OMNIPAQUE) 350 mg/mL injection 38,500 mg 38,500 mg (110 mL), Intravenous, ONCE PRN, 1 dose, Starting on Aby 04/27/11 at 1342, Until Aby 04/27/11 at 1357, Per Protocol, Routine Given 04/27/2011 1:57 PM EST 38,500 mg documented in this encounter Care Teams Compound Worker Relationship Specialty Start Date End Date Tr Ribera MD [address] [place] [address] PCP - General 03/22/10 05/23/17 documented as of this encounter
--- OUTSIDE RECORDS SUMMARY | 2023-11-13 09:25 | XMS_ITS | Encounter Summary ---
[place] [address] Care Team Providers Care Cabin Service Agent Name Role Phone Tr Hendrix DO Primary Care Provider [phone] Reason for Referral * Diagnostic Test (Routine) - Closed Specialty Diagnoses / Procedures Referred By Gloria rubio Referred To Contact Radiology Diagnoses Abdominal aortic aneurysm (AAA) without rupture Iliac artery aneurysm Procedures CT Angiogram Abdomen & Pelvis w Contrast (Generic) [facility] [address] [place] [address] [facility] [place] [address] Referral ID Status Reason Start Date Expiration Date V isits Requested Visits Authorized [id number] Closed Specialty Service Requested 12/26/2017 12/26/2018 1 1 Encounter Details Date Type Department Care Team (Late st Contact Info) Description 12/26/2017 Orders [place] [address] Marjorie Logan, VP GENETIC Abdominal aortic aneurysm (AAA) without rupture; Iliac [...] 10:00 AM EST Office Visit Dermatology at [place] [address] [place] [phone] Mustapha Lemos MD [address] [place] [address] documented as of this encounter Results * CT Angiogram Abdomen & Pelvis w Contrast (Generic) (08/02/2018 1:06 PM EDT) Anatomical Region Laterality Modality Abdomen, Pelvis Computed Tomogra phy Impressions 08/02/2018 2:02 PM EDT Slight interval increase in greatest dimensions of an infrarenal abdominal aortic aneurysm. Thank you for letting us participate in the care of this patient. For questions regarding this report, please contact the number below. ? Narrative 08/02/2018 2:02 PM EDT EXAMINATION: CT ANGIOGRAM ABDOMEN AND PELVIS W CONTRAST (GENERIC) CLINICAL HISTORY: AAA, bilateral iliac aneursym Please send to M2S TECHNIQUE: Helical CT angiogram of the abdomen and pelvis was performed following intravenous administration of 67cc of Omnipaque 350. MPRs were performed. Multiplanar images were reviewed and 3-D images were generated on an independent workstation. COMPARISON: 07/30/2015 FINDINGS: VASCULAR FINDINGS Abdominal aorta: A 4.7 x 5.4 cm, as measured from center line reformatted images, infrarenal abdominal aortic aneurysm is noted, slightly increased in greatest dimensions compared to the previous study, measuring approximately 4.5 x 4.9 cm previously. Celiac: Widely patent. SMA: Widely patent. Right renal artery: Widely patent. Left renal artery: Widely patent. FILIPPO: Widely patent. Right: Common iliac artery: Aneurysmal, measuring 2.9 x 3.0 cm in greatest dimension. Patent. External iliac artery: Widely patent. Internal iliac artery: Widely patent. Common femoral artery: Widely patent. Superficial femoral artery: The visualized aspects are widely patent. Profundus femoral artery: The visualized aspects are widely patent. Left: Common iliac artery: Aneurysmal, measuring 2.7 x 2.9 cm. Patent External iliac artery: Widely patent. Internal iliac artery: Proximally aneurysmal, measuring 1.9 cm. Common femoral artery: Widely patent. Superficial femoral artery: The visualized aspects are widely patent. Profundus femoral artery: The visualized aspects are widely patent. NON-VASCULAR FINDINGS Lower chest: Normal. Liver: Normal. Bile ducts: Nondilated. Gallbladder: No calcified gallstones. Normal caliber wall. Pancreas: Normal attenuation without ductal dilatation. Spleen: Normal. Kidneys/adrenals: Normal adrenal glands. Stable, 8mm LEFT renal cortical cyst. Urinary Bladder: Normal. Lymph Nodes: No enlarged lymph nodes. Bowel: Nondilated, no wall thickening. ?? Peritoneum and mesentery: No ascites, free air, or loculated fluid collection. No mesenteric inflammation. Osseous structures: No suspicious findings. Procedure Note Choco Walton MD - 08/02/2018 EXAMINATION: CT ANGIOGRAM ABDOMEN AND PELVIS W CONTRAST (GENERIC) CLINICAL HISTORY: AAA, bilateral iliac aneursym Please send to M2S TECHNIQUE: Helical CT angiogram of the abdomen and pelvis was performed following intravenous administration of 67cc of Omnipaque 350. MPRs were performed. Multiplanar images were reviewed and 3-D images were generatedon an independent workstation. COMPARISON: 07/30/2015 FINDINGS: VASCULAR FINDINGS Abdominal aorta: A 4.7 x 5.4 cm, as measured from center linereformatted images, infrarenal abdominal aortic aneurysm is noted, slightly increasedin greatest dimensions compared to the previous study, measuringapproximately 4.5 x 4.9 cm previously. Celiac: Widely patent. SMA: Widely patent. Right renal artery: Widely patent. Left renal artery: Widely patent. FILIPPO: Widely patent. Right: Common iliac artery: Aneurysmal, measuring 2.9 x 3.0 cm in greatestdimension. Patent. External iliac artery: Widely patent. Internal iliac artery: Widely patent. Common femoral artery: Widely patent. Superficial femoral artery: The visualized aspects are widely patent. Profundus femoral artery: The visualized aspects are widely patent. Left: Common iliac artery: Aneurysmal, measuring 2.7 x 2.9 cm. Patent External iliac artery: Widely patent. Internal iliac artery: Proximally aneurysmal, measuring 1.9 cm. Common femoral artery: Widely patent. Superficial femoral artery: The visualized aspects are widely patent. Profundus femoral artery: The visualized aspects are widely patent. NON-VASCULAR FINDINGS Lower chest: Normal. Liver: Normal. Bile ducts: Nondilated. Gallbladder: No calcified gallstones. Normal caliber wall. Pancreas: Normal attenuation without ductal dilatation. Spleen: Normal. Kidneys/adrenals: Normal adrenal glands. Stable, 8mm LEFT renal corticalcyst. Urinary Bladder: Normal. Lymph Nodes: No enlarged lymph nodes. Bowel: Nondilated, no wall thickening. Peritoneum and mesentery: No ascites, free air, or loculated fluidcollection. No mesenteric inflammation. Osseous structures: No suspicious findings. IMPRESSION Slight interval increase in greatest dimensions of an infrarenalabdominal aortic aneurysm. Thank you for letting us participate in the care of this patient. Forquestions regarding this report, please contact the number below. 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
--- OUTSIDE RECORDS SUMMARY | 2023-11-13 09:25 | XMS_ITS | Encounter Summary ---
Author Organization [facility] Address [facility] [place] [address] Care Team Providers Care Camera Storage Clerk Name Role Phone Tr Hendrix DO Primary Care Provider Reason for Visit * Reason Comments GI Problem * Consultation (Routine) - Closed Specialty Diagnoses / Procedures Referred By Gloria rubio Referred To Contact Gastroenterology Diagnoses FECAL SMEARING Tr Hendrix DO [address] [place] [address] [facility] [address] [place] [address] Referral ID Status Reason Start Date Expiration Date V isits Requested Visits Authorized [id number] Closed Consult, Test & Treat Connection Center 10/04/2017 10/04/2018 1 1 Encounter Details Date Type Department Care Team (Late st Contact Info) Description 11/22/2017 12:00 PM EDT Office [place] [address] Kevin Oliveira APRN [facility] [place] [address] Loose stools Social History Tobacco Use Types Packs/Day Years Used Date Smoking Tobacco: Former Cigarettes 1 50 0 07/29/1965 - 07/30/2015 Smokeless Tobacco: Never Sex and Gender Information Value Date Recorded Sex Assigned at Not on file Gender Identity Not on file Sexual Orientation Not on file documented as of this encounter Last Filed Vital Signs Vital Sign Reading Time Taken Comments Blood Pressure 154/71 11/22/2017 11:49 AM EDT Pulse 55 11/22/2017 11:49 AM EDT Temperature - - Respiratory Rate - - Oxygen Saturation - - Inhaled Oxygen Concentration - - Weight 95.7 kg (211 lb) 11/22/2017 11:49 AM EDT Height 175.3 cm (5' 9) 11/22/2017 11:49 AM EDT Body Mass Index 31.16 11/22/2017 11:49 AM EDT documented in this encounter Progress Notes * Kevin Oliveira RN - 11/22/2017 12:00 PM EDT Section of Gastroenterology and Hepatology [address] [place], [place] [id number] .Storm Nolasco : 1945 Patient is here for further evaluation of gastrointestinal symptoms at the request of Tr Frazier. HPI: Last year had a root canal. Amoxicillin did not help tooth infection. Then was given Clindamycin. Developed C-diff. Had sx for one month before tx. When he had the cdiff he did not have significant sx. Small amounts of liquid stool. Jelled looking. Treated with Flagyl ?dose ?frequency. And he believes it was for 10 days. Since then has had unusual bowel movements. No retest to assess for eradication of the cdiff. Stools in the morning are formed. Will have oozing afterwards. 2-3x times during the day. The more physically active he is the seepage is worse. He will feel wet, burning and itching at the anal area and this is how he knows he has leaked. Took otc probiotics for one month but no change in sx. The seepage lessens as the day progresses. No blood in stool. No mucous in stools. No oily stools. No abdominal pain. Before all of the above his stools were daily, regular, formed. No hx of anal, pelvic trauma. No anal pain. 2016 colonoscopy. Serrated sessile polyps. Weight stable. No change in appetite. No change in diet.No correlation with sx and diet. No chronic nsaids. No food allergies. No upper gi sx. Social History Social History ??? Marital status: Spouse name: N/A ??? Number of children: N/A ??? Years of education: N/A Occupational History ??? Not on file. Social History Main Topics ??? Smoking status: Former Smoker Packs/day: 1.00 Years: 50.00 Types: Cigarettes Quit date: 07/30/2015 ??? Smokeless tobacco: Never Used ??? Alcohol use Not on file ??? Drug use: Not on file ??? Sexual activity: Not on file Other Topics Concern ??? Not on file Social History Narrative Medical History: seborrhea; htn; high cholesterol; bph Surgical History: back surgery Family History: no gi etiologies Allergies Allergen Reactions ??? Hydrochlorothiazide ??? Lisinopril Current Outpatient Prescriptions: ??? ketoconazole (NIZORAL) 2 % Shampoo, Apply as shampoo once daily (three months supply), Disp: 360 mL, Rfl: 3 ??? alclomethasone (ACLOVATE) 0.05 % Ointment, Apply topically 2 times daily., Disp: , Rfl: ??? aspirin 81 mg Tablet, Delayed Release (E.C.), Daily, Disp: , Rfl: ??? desonide (DESOWEN) 0.05 % Cream, applly to dry scaling areas 1-2 daily, prn, Disp: 30 g, Rfl: 3 ??? atorvastatin (LIPITOR) 80 mg Tablet, Take 40 mg by mouth daily., Disp: , Rfl: ??? ibuprofen (ADVIL;MOTRIN) 200 mg Tablet, Take 600 mg by mouth 3 times daily as needed for Pain.,Disp: , Rfl: ??? terazosin (HYTRIN) 2 mg capsule, Take 4 mg by mouth daily., Disp: , Rfl: ??? PROCTO-MED HC 2.5 % cream with perineal applicator, APPLY RECTALLY TWICE DAILY FOR ANAL PROBLEMS, Disp: , Rfl: 0 Review of Systems - Negative except General: Cardiac: Resp: GI: see above : MS: Neuro: Skin: Psyche: Sleep: Endo: Impression: 1. Fecal seepage that began after treatment for cdiff; obtain cdiff stool study to assess for eradication. Consider VSL#3. There is nothing in the patient history to suggest this is anatomical or some disruption of the anal sphincter. 2. F/u with pt after test result available. I spent a total of 54 minutes face to face with this patient; 39 minutes were spent counseling the patient in the medical problems described above. Sincerely, Kevin Oliveira, JOB SITE SUPERVISOR Section of Gastroenterology and Hepatology documented in this encounter Plan of Treatment Upcoming Encounters Date Type Department Care Team (Late st Contact Info) Description 06/20/2024 10:00 AM EST Office Visit Dermatology at [place] [address] [place] [phone] Mustapha Lemos MD [address] [place] [address] documented as of this encounter Visit Diagnoses Diagnosis Loose stools Abnormal feces documented in this encounter Care Teams Camera Storage Clerk Relationship Specialty Start Date End Date Tr Hendrix DO [address] [facility] [address] PCP - General Family Medicine 05/24/17 documented as of this encounter
--- OUTSIDE RECORDS SUMMARY | 2023-11-13 09:25 | XMS_ITS | Encounter Summary ---
[place] [address] Care Team Providers Care Rug Hooker Name Role Phone Tr Ribera MD Primary Care Provider [phone] Reason for Visit * Consultation (Routine) - Closed Specialty Diagnoses / Procedures Referred By Gloria rubio Referred To Contact Vascular Surgery Diagnoses needs duplex US for AAA and aneurysms of iliac arteries, then follow up with Dr. Esposito. Tr Ribera MD [address] [place] [address] [facility] S[facility] [address] [place] [address] Referral ID Status Reason Start Date Expiration Date V isits Requested Visits Authorized [id number] Closed Consult, Test & Treat Connection Center 10/09/2016 10/09/2017 2 2 Encounter Details Date Type Department Care Team (Latest Contact Info) Description 12/15/2016 9:09 AM EDT - 12/15/2016 11:59 PM EDT Hospital Encounter [place] [address] [place] Abdominal aortic aneurysm (AAA) without rupture Discharge [...] Sig Dispensed Refills Start Date End Date bisacodyl (DULCOLAX, BISACODYL,) 5 mg Tablet, Delayed Release (E.C.) Once 06/29/2015 08/02/2018 Fesoterodine (TOVIAZ) 4 mg Tablet Sustained Release 24 hr Daily 05/15/2013 08/02/2018 finasteride (PROSCAR) 5 mg Tablet Daily 06/26/2013 08/02/2018 metroNIDAZOLE (FLAGYL) 500 mg Tablet Q6H 08/21/2016 08/02/2018 ibuprofen (ADVIL;MOTRIN) 600 mg Tablet Three times a day 08/21/2012 05/27/2019 aspirin 81 mg Tablet, Delayed Release (E.C.) Daily 08/21/2012 12/25/2017 alclomethasone (ACLOVATE) 0.05 % Ointment Apply topically 2 times daily. 12/25/2017 ketoconazole (NIZORAL) 2 % CreamIndications:Sebo rrheic dermatitis Apply topically to face 2x daily for 3-5 days mixed with alclometasone for flares; then by itself 1-2x daily for maintenance. 30 g 3 10/19/2016 05/24/2017 ketoconazole (NIZORAL) 2 % ShampooIndications:Se borrheic dermatitis Apply to scalp and chest, leave on 15 minutes before rinsing, daily for 3-5 days for flares; then 1-2x/wk for maintenance. 120 mL 3 10/19/2016 05/24/2017 aspirin 81 mg Tablet, Delayed Release (E.C.) Daily 08/21/2012 08/02/2018 desonide (DESOWEN) 0.05 % Cream applly to dry scaling areas 1-2 daily, prn 30 g 3 05/18/2016 08/02/2018 atorvastatin (LIPITOR) 80 mg Tablet Take 40 mg by mouth daily. 12/25/2017 ibuprofen (ADVIL;MOTRIN) 200 mg Tablet Take 600 mg by mouth 3 times daily as needed for Pain. 12/25/2017 terazosin (HYTRIN) 2 mg capsule Take 4 mg by mouth daily. 10/18/2010 12/25/2017 documented as of this encounter Plan of Treatment Upcoming Encounters Date Type Department Care Team (Late st Contact Info) Description 06/20/2024 10:00 AM EST Office Visit Dermatology at [place] [address] [place] [address] Mustapha Lemos MD [address] [place] [address] documented as of this encounter Procedures Procedure Name Priority Date/Time Associated Diagnosis Comments AAA DUPLEX COMPLETE Routine 12/15/2016 9 :12 AM EDT Abdominal aortic aneurysm (AAA) without rupture documented in this encounter Results * AAA Duplex, Complete/Bilateral (12/15/2016 9:12 AM EDT) VB Text Report Department: Vascular Surgery Lab Patient: [id number] (STORM NOLASCO) CPT: 06698 ICD10: I71.4 Referring Physician: ERIN ESPOSITO ?? Phone: Indications: Patient with known AAA and bilateral common iliac artery aneurysms, ? size ICD10 Diagnosis Code: I71.4 Findings: Infra Renal Aorta ? PSV (cm/s): 87 ? EDV (cm/s): 1 ? Diam AP (cm): 2.6 ? Diam Lateral (cm): 2.6 Distal Aorta ? Diam AP (cm): 4.7 ? Diam Lateral (cm): 4.8 Common Iliac Artery, Proximal, Right ? PSV (cm/s): 115 ? EDV (cm/s): 0 ? Diam AP (cm): 3.2 ? Diam Lateral (cm): 3.1 Common Iliac Artery, Proximal, Left ? PSV (cm/s): 97 ? EDV (cm/s): 10 ? Diam AP (cm): 2.8 ? Diam Lateral (cm): 2.8 Interpretation: Patent abdominal aorta with an infra-renal aneurysm measuring approximately 4.7 cm x 4.8 cm. There is mural thrombus/laminate d plaque noted within the aneurysm sac. The proximal aorta was not visualized due to overlying bowel gas; cannot exclude large diameter here. RIGHT: Patent proximal common iliac artery with an aneurysmal dilation measuring approximately 3.2 cm x 3.1 cm. LEFT: Patent proximal common iliac artery with an aneurysmal dilation measuring approximately 2.8 cm x 2.8 cm. Comparison: ??No previous study in our vascular lab database for comparison. Electronically Signed by: ERIN ESPOSITO on 2016-12-15 02:41:07 PM [facility] VB Text Report End of Report [facility] 12/15/2016 9:12 AM EDT Erin Esposito MD VASCULAR ORDERA BLES [facility] documented in this encounter Visit Diagnoses Diagnosis Abdominal aortic aneurysm (AAA) without rupture documented in this encounter Care Teams Rug Hooker Relationship Specialty Start Date End Date Tr Ribera MD [address] [place] [address] PCP - General 03/22/10 05/23/17 documented as of this encounter
--- OUTSIDE RECORDS SUMMARY | 2023-11-13 09:25 | XMS_ITS | Encounter Summary ---
Author Organization Formerly [facility] [address] Care Team Providers Care Winding Inspector Name Role Phone Tr Ribera MD Primary Care Provider [phone] [phone] Reason for Referral * Diagnostic Test (Routine) - Closed Specialty Diagnoses / Procedures Referred By Contac t Referred To Contact Radiology Diagnoses Abdominal aortic aneurysm without rupture Procedures CTA Of Abdomen And Pelvis With Contrast CT Abdomen And Pelvis With Contrast (GENERIC) Shonda Baird MD [facility] [place] [address] [facility] [place] [address] Referral ID Status Reason Start Date Expiration Date V isits Requested Visits Authorized [id number] Closed Specialty Service Requested 07/26/2015 07/25/2016 1 1 Reason for Visit * Diagnostic Test (Routine) - Closed Specialty Diagnoses / Procedures Referred By Contac t Referred To Contact Radiology Diagnoses Abdominal aortic aneurysm without rupture Procedures CTA Of Abdomen And Pelvis With Contrast CT Abdomen And Pelvis With Contrast (GENERIC) Shonda Baidr MD [facility] [place] [address] [facility] [place] [address] Referral ID Status Reason Start Date Expiration Date V isits Requested Visits Authorized [id number] Closed Specialty Service Requested 07/26/2015 07/25/2016 1 1 Encounter Details Date Type Department Care Team (Latest Contact Info) Description 07/30/2015 12:23 PM EDT - 07/30/2015 11:59 PM EDT Hospital Encounter CT Scan at [facility] [place] [address] Shonda Baird MD [facility] [place] [address] Abdominal aortic aneurysm without rupture Discharge Disposition: Home Social History [...] 5 mg Tablet, Delayed Release (E.C.) Once 06/29/201508/02 Fesoterodine (TOVIAZ) 4 mg Tablet Sustained Release 24 hr Daily 05/15/2013 08/02/2018 finasteride (PROSCAR) 5 mg Tablet Daily 06/26/2013 08/02/2018 ibuprofen (ADVIL;MOTRIN) 600 mg Tablet Three times a day 08/21/2012 0 aspirin 81 mg Tablet, Delayed Release (E.C.) Daily 08/21/201212/25 varenicline (CHANTIX) 0.5 mg (11)- 1 mg (42) Tablets, Dose Pack Reported on 10/19/2016 06/07/2015 12/15/2016 aspirin 81 mg Tablet, Delayed Release (E.C.) Daily 08/21/201208/02 atorvastatin (LIPITOR) 40 mg Tablet Daily 10/30/2013 05/18/2016 atorvastatin (LIPITOR) 80 mg Tablet Take 40 mg by mouth daily. 12/25/2017 Fesoterodine (TOVIAZ) 4 mg Tablet Sustained Release 24 hr Take by mouth daily. Reported on 10/19/2016 12/15/2016 ibuprofen (ADVIL;MOTRIN) 200 mg Tablet Take 600 mg by mouth 3 times daily as needed for Pain. 12/25/2017 acyclovir (ZOVIRAX) 200 mg capsule Take by mouth every 4 hours (while awake). Reported on 10/19/2016 12/15/2016 aspirin 81 mg tablet Take 81 mg by mouth daily. 05/18/2016 terazosin (HYTRIN) 2 mg capsule Take 4 mg by mouth daily. 10/18/2010 12/25/2017 GLUCOSAMINE HCL/CHONDRO OKEEFE A (GLUCOSAMINE-CHONDROITIN ORAL) 07/13/2010 12/15/2016 documented as of this encounter Plan of Treatment Upcoming Encounters Date Type Department Care Team (Late st Contact Info) Description 06/20/2024 10:00 AM EST Office Visit Dermatology at [place] [address] [facility] [place] [id number] Mustapha Lemos MD [address] [facility] [place] [address] documented as of this encounter Procedures Procedure Name Priority Date/Time Associated Diagnosis Comments CT ANGIOGRAM ABDOMEN AND PELVIS W CONTRAST Routine 07/30/2015 12:58 PM EDT Abdominal aortic aneurysm without rupture documented in this encounter Results * CTA Of Abdomen [...] rupture documented in this encounter Care Teams Winding Inspector Relationship Specialty Start Date End Date Tr Ribera MD [address] [place] [address] PCP - General 03/22/10 05/23/17 documented as of this encounter
--- OUTSIDE RECORDS SUMMARY | 2023-11-13 09:25 | XMS_ITS | Encounter Summary ---
Author Organization Formerly [facility] Address [facility] [place] [address] Care Team Providers Care Merchandise Buyer Name Role Phone Tr Ribera MD Primary Care Provider [phone] [phone] Reason for Visit * Reason Comments Rash Encounter Details Date Type Department Care Team (Late st Contact Info) Description 10/19/2016 2:30 PM EDT Office Visit Dermatology at [facility] [address] [place] [address] Monique Gallego MD [facility] [address] [place] [address] Jasmine Golden PA [facility] [address] [place] [address] Seborrheic dermatitis; Dermatitis Social History Tobacco Use Types Packs/Day Years Used Date Smoking Tobacco: Former Cigarettes 1 50 Smokeless Tobacco: Never Comments:pack a day Sex and Gender Information Value Date Recorded Sex Assigned at Not on file Gender Identity Not on file Sexual Orientation Not on file documented as of this encounter Patient Instructions * Patient Instructions* Erni Osman LPN - 10/19/2016 2:30 PM EDT 1. Seborrheic dermatitis: face, chest, scalp - Discussed chronic nature and need for flare vs. Maintenance treatment - Start RX: Ketoconazole cream Apply topically to affected areas on face daily as needed for 3-5 weeks mixed with alclometasone with flares then by itself on weekends for maintenance. - Start RX: Ketoconazole 2% shampoo Apply to scalp and chest, leave in for 15 minutes and rinse out daily for 3-5 weeks with flares andthen on weekends for maintenance. 2. Dermatitis on arms - Start RX: alclometasone ointment Apply topically to affected areas on arms. documented in this encounter Progress Notes * Jasmine Golden PA - 10/19/2016 2:30 PM EDT Images from the original note were not included. DERMATOLOGY - NEW PATIENT NOTE Date of service: 10/19/2016 Storm Nolasco : 1945 Dermatology Physician Order To Delivery Supervisor Note: Jasmine Golden PA-C Chief Complaint Patient presents with ??? Rash Mr. Storm Nolasco is a 71 y.o. male. This is a new patient to me and to the clinic. Patient is self-referred. HPI: Mr. Nolasco presents for rash on his chin, upper lip, nose. He has been getting full skin exams done by Dr. Lemos however they are unable to seen him until the fall. His PCP prescribed Alclometasone ointment and it doesn't seem to be helping. Patient states that he has recently had C-DIff and was given oral abx. He has since stopped the medication however he has another rash on his arms. Denies having used ketoconazole formulations of any kind from Dr. Lemos. He has been told to use Selsun Blue in the past for this but it did not work. Skin History: - malignant melanoma, left flank, 0.98 mm Breslow depth with extension down to the follicle through the deep margin. Negative sentinel lymph node biopsy, June 24, 2010. Seborrheic dermatitis Family History: Melanoma: Mother, brothers x2 Medical History: Patient Active Problem List Diagnosis Code ??? Melanoma C43.9 ??? Hypertension I10 ??? History of malignant melanoma Z85.820 ??? Seborrheic dermatitis L21.9 ??? Hyperlipidemia E78.5 ??? Obesity E66.9 ??? History of BPH Z87.438 ??? Tobacco dependence syndrome F17.200 ??? Liver hemangioma D18.03 ??? AAA (abdominal aortic aneurysm) I71.4 ??? Adenomatous polyp of colon D12.6 Medications: Current Outpatient Prescriptions Medication Sig Dispense Refill ??? aspirin 81 mg Tablet, Delayed Release (E.C.) Daily ??? atorvastatin (LIPITOR) 80 mg Tablet Take 80 mg by mouth daily. ??? ibuprofen (ADVIL;MOTRIN) 200 mg Tablet Take 600 mg by mouth 3 times daily as needed for Pain. ??? terazosin (HYTRIN) 2 mg capsule Take 4 mg by mouth daily. ??? GLUCOSAMINE HCL/CHONDRO OKEEFE A (GLUCOSAMINE-CHONDROITIN ORAL) ??? varenicline (CHANTIX) 0.5 mg (11)- 1 mg (42) Tablets, Dose Pack Reported on 10/19/2016 ??? desonide (DESOWEN) 0.05 % Cream applly to dry scaling areas 1-2 daily, prn (Patient not taking:Reported on 10/19/2016) 30 g 3 ??? Fesoterodine (TOVIAZ) 4 mg Tablet Sustained Release 24 hr Take by mouth daily. Reported on 10/19/2016 ??? acyclovir (ZOVIRAX) 200 mg capsule Take by mouth every 4 hours (while awake). Reported on 10/19/2016 No current facility-administered medications for this visit. Allergies: Allergies Allergen Reactions ??? Hydrochlorothiazide ??? Lisinopril Procedure screening: Allergies to lido/epi: no Defibrillator: no Review of Systems: - General: Feels well. - Skin: As per HPI; no other skin concerns. Examination: - Constitutional: Patient was alert, well-appearing and in no noticeable distress. - Skin: An abbreviated skin exam was performed; this includes the: face, neck, chest and bilateral arms. - Skin Type: 2 Specific skin findings/Diagnosis/Assessment/Treatment Plan: 1. Seborrheic dermatitis: face, chest, scalp - Discussed etiology and chronic nature of this condition and need for flare vs. Maintenance treatment - Start RX: Ketoconazole cream Apply topically to affected areas on face daily as needed ,for 3-5 days mixed with alclometasone with flares, then by itself 1-2x daily or as needed for maintenance. - Start RX: Ketoconazole 2% shampoo Apply to scalp and chest, leave in for 15 minutes and rinse out, daily for 3-5 days with flares, and then on weekends for maintenance. - Pt has alclometasone at home, declines refills at this time. - Patient instructed to return to clinic for re-evaluation if lesion does not resolve with this treatment; as expected. 2. Dermatitis - arms, scant eczematous plaques - Favor irritant/xerotic/sensitive skin - Start RX: alclometasone ointment Apply topically to affected areas on arms. - For maintenance sensitive skin care is essential. Reviewed sensitive skin care diet: short luke-warm showers/baths, mild soap only in dirty areas, pat dry, heavy moisturization following bathing and several other times daily with bland lotion, free and clear laundry soap, no dryer sheets or laundry additives. Reviewed list of recommended skin products. Handout given to patient. Pictures (Picture(s) taken and charted w/ pt consent): Figure 1 LOS: [id number] RTC: 1 month follow up if not resolved by treatment. Patient will call if not resolved PRN if symptoms worsen or persist. Instructed to call with questions or concerns. Note initiated by ERIN OSMAN LPN I am documenting this encounter acting as the scribe for and in the presence of Jasmine Golden PA-C I performed the above scribed service and agree with the accuracy of the documentation in this encounter. Reviewed and signed by Jasmine Golden PA-C Dermatology [facility] Patient seen with direct supervision of Attending Physician: Monique Gallego MD Section of Dermatology [facility] * Monique Gallego MD - 10/19/2016 2:30 PM EDT [place] patches with waxy scale c/w seborrheic dermatitis on the face, chest and scalp. Recommended ketoconazole and topical steroid for mild eczematous change on arm as outlined Patient seen in conjunction with Jasmine Golden PA-C Signed by: MONIQUE GALLEGO MD Section of Dermatology [facility] documented in this encounter Plan of Treatment Upcoming Encounters Date Type Department Care Team (Late st Contact Info) Description 06/20/2024 10:00 AM EST Office Visit Dermatology at [place] [address] [place] [address] Mustapha Lemos MD [address] [facility] [place] [address] documented as of this encounter Visit Diagnoses Diagnosis Seborrheic dermatitis Seborrheic dermatitis, unspecified Dermatitis Contact dermatitis and other eczema, due to unspecified cause documented in this encounter Care Teams Merchandise Buyer Relationship Specialty Start Date End Date Tr Ribera MD [address] [place] [address] PCP - General 03/22/10 05/23/17 documented as of this encounter
--- OUTSIDE RECORDS SUMMARY | 2023-11-13 09:25 | XMS_ITS | Encounter Summary ---
Author Organization Count Includes [facility] Address [facility] [place] [address] Care Team Providers Care Computer Network Support Specialist Name Role Phone Tr Ribera MD Primary Care Provider [phone] [phone] Reason for Visit * Reason Comments Follow-up Encounter Details Date Type Department Care Team (Late st Contact Info) Description 04/27/2011 2:00 PM EST Follow-Up [place] [address] Marta Heath, RN [facility] DR HEMATOLOGY/[place] [address] Melanoma Discharge Disposition: Home Social History Tobacco [...] Sign Reading Time Taken Comments Blood Pressure 142/80 04/27/2011 2:12 PM EST Pulse 66 04/27/2011 2:12 PM EST Temperature 36.5 ??C (97.7 ??F) 04/27/2011 2:12 PM ES T Respiratory Rate 17 04/27/2011 2:12 PM EST Oxygen Saturation 96% 04/27/2011 2:12 PM EST Inhaled Oxygen Concentration - - Weight 106.5 kg (234 lb 12.6 oz) 04/27/2011 2:12 PM EST Height 175 cm (5' 8.9) 04/27/2011 2:12 PM EST Body Mass Index 34.78 04/27/2011 2:12 PM EST documented in this encounter Progress Notes * Marta Heath, MANAGER HOME IMPROVEMENT - 04/27/2011 3:01 PM EST Melanoma Pathology Date of Biopsy: May 18 2010 left flank ---Pathologic Diagnosis--- Specimen: Skin of [...] margin. Pathologic TNM Codes: pT1b pNx pMx Mr. Nolasco is a 65 years man who was found to have a melanoma of the left flank idenditied by Dr. Lemos on routine skin examination in April 2010. He had a WLE with a negative SLNB on 06/24/2010. ---Pathologic Diagnosis--- A - Skin of central back, excision: 1. Lentiginous junctional nevus with moderate atypia. Examined inked margins are free of lesion. 2. Incidental seborrheic keratosis. B - Skin of right shoulder, excision: Melanoma in situ, extending to 2.31 mm from the nearest peripheral margin. C - Skin of left flank, wide excision: 1. Scar consistent with prior procedure, no residual atypical melanocytic lesion identified. 2. Incidental compound nevus (C6), not at a margin. D - Left axillary sentinel nodes, excision: No evidence of malignancy in four lymph nodes. All levels and immunohistochemical stains for S-100, MART-1, and HMB-45 (performed on sections from blocks D1, D2, and D5) are negative for metastatic disease. Mr. 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 He presents for interim follow up and we are alternating visits with Dr. Lemos. HPI He had a questionable liver lesion seen on outside CT and US, and MRI of the abdomen was performed in follow up. Initially a CT guided liver biopsy was requested but the lesion appeared cystic and Radiology thought that an MRI would be a better option to characterize the lesion in question. Preliminarily MRI report identifies a well delineated 3.1x2.5cm high signal focus in the left hepatic lobe which appears to be a cyst, and an additional smaller, 9 mm high focus on the right lobe of the liver consistent with hemangioma. Review of Systems: J2EE ENGINEER/PNS: negative Throat: negative Pulmonary: Negative, Smokes 1 ppd Renal: negative Endocrine: negative Genitourinary: Slow stream on hytrin. Wakes at night to void. Dermatology: See history. Eyes: negative Nose: negative Cardiovascular: Denies chest pain, etc. Asymptomatic AAA seen on outside scans being monitored locally by his PCP. GI: negative Rheumatologic: negative Hematologic: negative LABORATORY: All values stable. CT of chest, abdomen and pelvis was performed today with results pending. Preliminarily, the liver lesion appears stable. EXAM: General: Mr. Nolasco is a well developed, well nourished man in no acute distress. Skin: Few moles with minimal atypia mostly on trunk. HEENT: NC/AT, PERRLA, EOMI, no oral lesions. Neck: supple. Lymph nodes: negative. Chest: Clear to percussion and auscultation. Cor: Regular rhythm and rate. 1/6 holo systolic m Abdomen: Without palpable liver, spleen, kidneys or masses. Extremities: without clubbing, cyanosis or edema. Neurologic: Non-focal. Impression: Stage 1b melanoma Second primary MIS stage 0 ANA on exam, labs or scans. Plan: We will see him again in September and he will follow up with Dr. Lemos this June. We are available as needed in the interim for questions or concerns. If scans today are negative we will just obtain labwork at the next visit. documented in this encounter Plan of Treatment Upcoming Encounters Date Type Department Care Team (Late st Contact Info) Description 06/20/2024 10:00 AM EST Office Visit Dermatology at [address] [place] [address] Mustapha Lemos MD [address] [facility] [place] [address] documented as of this encounter Procedures Procedure Name Priority Date/Time Associated Diagnosis Comments DIFFERENTIAL, AUTOMATED Routine 04/27/2011 12:23 PM EST CBC (WITH DIFF) Routine 04/27/2011 12:23 PM EST Melanoma LACTATE DEHYDROGENASE Routine 04/27/2011 12:23 PM EST Melanoma COMPREHENSIVE METABOLIC PANEL (NON-FASTING) Routine 04/27/2011 12:23 PM EST Melanoma documented in this encounter Results * DIFFERENTIAL, AUTOMATED (04/27/2011 12:23 PM EST) Neutrophils % 65.3 34.0 - 71.0 % CERNER MILLENNIUM Neutr Abs (ANC) 6.15 1.50 - 6.30 x10(3)/mcL CERNER MILLENNIUM Lymphocytes % 23.2 19.0 - 53.0 % CERNER MILLENNIUM Lymphocytes Abs 2.2 1.0 - 3.6 x10(3)/mcL CERNER MILLENNIUM Monocytes % 7.7 4.0 - 13.0 % CERNER MILLENNIUM Monocyte Abs 0.7 0.2 - 1.0 x10(3)/mcL CERNER MILLENNIUM Eosinophils % 3.0 0.0 - 7.0 % CERNER MILLENNIUM Eosinophils Abs 0.3 0.0 - 0.5 x10(3)/mcL CERNER MILLENNIUM Basophils % 0.4 0.0 - 2.0 % CERNER MILLENNIUM Basophils Abs 0.0 0.0 - 0.2 x10(3)/mcL CERNER MILLENNIUM Immature Gran % 0.40 0.00 - 0.66 % CERNER MILLENNIUM Comment: Immature granulocytes(IG's)percentage and absolute count will include metamyelocytes, myelocytes, and promyelocytes. Blood smears from CBCs yielding IG's will be scanned manually for concordance. If this scan disagrees with the automated IG or if promyelocytes are noted, a manual differential will be performed. Melanie Gran Abs 0.04 0.00 - 0.05 x10(3)/mcL CERNER MILLENNIUM Blood specimen (specimen) 04/27/2011 12:23 PM EST 04/27/2011 12:26 PM EST Benton Foley MD HEMATOLOGY ORDERABLE S CERNER MILLENNIUM * LDH (04/27/2011 12:23 PM EST) LDH Not Perf 110 - 220 unit/L CERNER MILLENNIUM Comment:Unable to quantitate due to sample hemolysis. Sample redraw suggested. Blood specimen (specimen) 04/27/2011 12:23 PM EST 04/27/2011 12:25 PM EST Benton Foley MD CHEMISTRY ORDERABLES Performing Organization Address [facility] Co de Phone Number CERNER MILLENNIUM * (ABNORMAL) Comprehensive metabolic panel (CMP) (04/27/2011 12:23 PM EST) Glucose Lvl 85 60 - 199 mg/dL CERNER MILLENNIUM Comment:Diabetes: >=200 mg/d L plus symptoms BUN 18 10 - 20 mg/dL CERNER MILLENNIUM Creatinine 0.78(L) 0.80 - 1.50 mg/dL CERNER MILLENNIUM Sodium 139 135 - 145 mmol/L CERNER MILLENNIUM Potassium 4.0 3.5 - 5.0 mmol/L CERNER MILLENNIUM Comment: Please note: ??Patients with WBC >100,000 may have falsely elevated Potassium levels. ??For accurate Potassium quantification in these patients send serum separator tube (gold top) for subsequent determinations. ??Contact the Clinical Chemistry Laboratory if there are any questions. Chloride 103 98 - 107 mmol/L CERNER MILLENNIUM CO2 24 22 - 31 mmol/L CERNER MILLENNIUM Anion Gap 12 5 - 15 mmol/L CERNER MILLENNIUM Calcium 9.2 8.5 - 10.5 mg/dL CERNER MILLENNIUM Total Protein 7.0 6.4 - 8.3 gm/dL CERNER MILLENNIUM Albumin 4.4 3.2 - 5.2 gm/dL CERNER MILLENNIUM AST Not Perf 0 - 39 unit/L CERNER MILLENNIUM Comment:Unable to quantitate due to sample hemolysis. Sample redraw suggested. ALT 23 0 - 55 unit/L CERNER MILLENNIUM Alk Phos 66 40 - 120 unit/L CERNER MILLENNIUM Total [...] multiply eGFR by 1.2. The MDRD equation has not been validated for pediatric patients and is only valid for patients with age >= 18 years. At present, NKDEP does NOT recommend using [...] with diabetic kidney disease. References: http://nkdep.nih.gov/resources/NKDEP_Suggestn4Labs_0606_508.pdf http://www.kidney.org/professionals/kls/pdf/faq_gfr.pdf Blood specimen (specimen) 04/27/2011 12:23 PM EST 04/27/2011 12:25 PM EST Benton Foley MD CHEMISTRY ORDERABLES [facility] * (ABNORMAL) CBC (with Diff) (04/27/2011 12:23 PM EST) WBC 9.4 4.0 - 10.0 x10(3)/mcL CERNER MILLENNIUM RBC 4.60(L) 4.63 - 6.08 x10(6)/mcL CERNER MILLENNIUM Hemoglobin 15.0 13.7 - 17.5 gm/dL CERNER MILLENNIUM Hematocrit 42.8 40.0 - 51.0 % CERNER MILLENNIUM MCV 93.0(H) 79.0 - 92.0 fL CERNER MILLENNIUM MCH 32.6(H) 25.6 - 32.2 pg CERNER MILLENNIUM MCHC 35.0 32.0 - 36.5 gm/dL CERNER MILLENNIUM Platelets 191 145 - 370 x10(3)/mcL CERNER MILLENNIUM RDWSD 44.4 35.0 - 46.0 fL CERNER MILLENNIUM RDWCV 13.0 10.9 - 14.4 % CERNER MILLENNIUM MPV 10.2 9.0 - 12.0 fL CERNER MILLENNIUM Blood specimen (specimen) 04/27/2011 12:23 PM EST 04/27/2011 12:26 PM EST Benton Foley MD HEMATOLOGY ORDERABLE S Performing Organization Address City/State/[facility] Co de Phone Number TAN KATZ documented in this encounter Visit Diagnoses Diagnosis Melanoma Melanoma of skin, site unspecified documented in this encounter Care Teams Computer Network Support Specialist Relationship Specialty Start Date End Date Tr Ribera MD [address] [place] [address] PCP - General 03/22/10 05/23/17 documented as of this encounter
--- OUTSIDE RECORDS SUMMARY | 2023-11-13 09:25 | XMS_ITS | Encounter Summary ---
Author Organization [facility] Address [facility] [place] [address] Care Team Providers Care Workers Compensation Analyst Name Role Phone Tr Ribera MD Primary Care Provider [phone] Encounter Details Date Type Department Care Team (Latest Contact Info) Description 02/01/2016 - 02/01/2016 11:59 PM EDT Hospital Encounter [place] [address] Shonda Baird MD [facility] [place] [address] Pain Discharge Disposition: Home Social History Tobacco Use [...] mg Tablet Three times a day 08/21/2012 01/28/202 0 aspirin 81 mg Tablet, Delayed Release [...] AM EST Office Visit Dermatology at [address] [place] [address] Mustapha Lemos MD [address] [place] [address] [place] [address] documented as of this encounter Procedures Procedure Name Priority Date/Time Associated Diagnosis Comments FILM LIBRARY STORAGE ONLY ULTRASOUND STUDY Routine 02/01/2016 12:00 AM EDT Pain documented in this encounter Results * Film Library- Storage Only Ultrasound Study (02/01/2016 12:00 AM EDT) Narrative [facility] RAD - 02/02/2016 4:51 PM EDT This exam is for storage only and is auto-finalizing. Shonda Baird MD IMG FILM LIBRAR Y ORDERABLES [place], [place] documented in this encounter Visit Diagnoses Diagnosis Pain Generalized pain documented in this encounter Care Teams Workers Compensation Analyst Relationship Specialty Start Date End Date Tr Ribera MD [address] [place] [address] PCP - General 03/22/10 05/23/17 documented as of this encounter
--- OUTSIDE RECORDS SUMMARY | 2023-11-13 09:25 | XMS_ITS | Encounter Summary ---
[place] [address] Care Team Providers Care Pool Installer Name Role Phone Tr Ribera MD Primary Care Provider [phone] [phone] Encounter Details Date Type Department Care Team (Late st Contact Info) Description 06/30/2015 Orders [place] [address] Raysa Desouza Social History Tobacco Use Types Packs/Day Years [...] 10:00 AM EST Office Visit Dermatology at [place] [address] [facility] [place] [id number] Mustapha Lemos MD [address] [facility] [place] [address] documented as of this encounter Visit Diagnoses Not on filedocumented in this encounter Care Teams Pool Installer Relationship Specialty Start Date End Date Tr Ribera MD [address] [place] [address] PCP - General 03/22/10 05/23/17 documented as of this encounter
--- OUTSIDE RECORDS SUMMARY | 2023-11-13 09:25 | XMS_ITS | Encounter Summary ---
[place] [address] Care Team Providers Care Aircraft Loadmaster Superintendent Name Role Phone Tr Ribera MD Primary Care Provider [phone] Encounter Details Date Type Department Care Team (Late st Contact Info) Description 07/01/2015 Orders [place] [address] Raysa Desouza Social History Tobacco Use Types [...] 10:00 AM EST Office Visit Dermatology at [place] [address] [facility] [place] [phone] Mustapha Lemos MD [address] [facility] [place] [address] documented as of this encounter Visit Diagnoses Not on filedocumented in this encounter Care Teams Aircraft Loadmaster Superintendent Relationship Specialty Start Date End Date Tr Ribera MD [address] [place] [address] PCP - General 03/22/10 05/23/17 documented as of this encounter
--- OUTSIDE RECORDS SUMMARY | 2023-11-13 09:25 | XMS_ITS | Encounter Summary ---
Author Organization [facility] [place] [address] Care Team Providers Care Electric Arc Furnace Operator Name Role Phone Tr Ribera MD Primary Care Provider [phone] Reason for Visit * Reason Comments Aneurysm (Aortic) follow-up * Consultation (Routine) - Closed Specialty Diagnoses / Procedures Referred By Gloria rubio Referred To Contact Vascular Surgery Diagnoses needs duplex US for AAA and aneurysms of iliac arteries, then follow up with Dr. Esposito. Tr Ribera MD [address] [place] [address] [facility] [address] [place] [address] Referral ID Status Reason Start Date Expiration Date V isits Requested Visits Authorized [id number] Closed Consult, Test & Treat Connection Center 10/09/2016 10/09/2017 2 2 Encounter Details Date Type Department Care Team (Late st Contact Info) Description 12/15/2016 10:00 AM EDT Office [place] [address] Erin Esposito MD [facility] [place] [address] Abdominal aortic aneurysm (AAA) without rupture Social History Tobacco Use Types Packs/Day Years Used Date Smoking Tobacco: Former Cigarettes 1 50 0 07/29/1965 - 07/30/2015 Smokeless Tobacco: Never Tobacco Cessation:Counseling Given: No Sex and Gender Information Value Date Recorded Sex Assigned at Not on file Gender Identity Not on file Sexual Orientation Not on file documented as of this encounter Last Filed Vital Signs Vital Sign Reading Time Taken Comments Blood Pressure 140/74 12/15/2016 10:02 AM EDT Pulse 59 12/15/2016 10:02 AM EDT Temperature - - Respiratory Rate - - Oxygen Saturation - - Inhaled Oxygen Concentration - - Weight 94.8 kg (209 lb) 12/15/2016 10:02 AM EDT Height 175.3 cm (5' 9) 12/15/2016 10:02 AM EDT Body Mass Index 30.86 12/15/2016 10:02 AM EDT documented in this encounter Progress Notes * Stoney Iglesias MD - 12/15/2016 10:00 AM EDT Images from the original note were not included. OUTPATIENT VASCULAR SURGERY CONSULTATION Reason for Visit: AAA History of Present Illness:Storm Olivares is a 70 yo M referred by Tr Ribera MD whowe are seeing in follow-up for known AAA. AAA has been followed for several years with US but was [place] [facility] [place] when the aneurysm reached 4.8cm. Patient reports C. Diff after antibiotics prescribed for root canal. Patient has completed course of metronidazole but still has some loose stools. Otherwise doing well. No recent CP, SOB, BALDERAS, PND, orthopnea. No longer requires bloodpressure medications. Quit smoking July 30, 2015. Atherosclerotic Risk Factors: (n) DM (y) HTN - controlled with diet and exercise (y) Hyperlipidemia reports that he quit smoking about 16 months ago. His smoking use included Cigarettes. He has a 50.00 pack-year smoking history. He has never used smokeless tobacco. Cardiovascular History: (n) Previous KS (n) Angina (n) CHF (n) Arrythmia (n) copd Patient Active Problem List Diagnosis Code ??? Melanoma C43.9 ??? Hypertension I10 ??? History of malignant melanoma Z85.820 ??? Seborrheic dermatitis L21.9 ??? Hyperlipidemia E78.5 ??? Obesity E66.9 ??? History of BPH Z87.438 ??? Tobacco dependence syndrome F17.200 ??? Liver hemangioma D18.03 ??? AAA (abdominal aortic aneurysm) I71.4 ??? Adenomatous polyp of colon D12.6 Current Outpatient Prescriptions: ??? alclomethasone (ACLOVATE) 0.05 % Ointment, Apply topically 2 times daily., Disp: , Rfl: ??? ketoconazole (NIZORAL) 2 % Cream, Apply topically to face 2x daily for 3-5 days mixed with alclometasone for flares; then by itself 1-2x daily for maintenance., Disp: 30 g, Rfl: 3 ??? ketoconazole (NIZORAL) 2 % Shampoo, Apply to scalp and chest, leave on 15 minutes before rinsing, daily for 3-5 days for flares; then 1-2x/wk for maintenance., Disp: 120 mL, Rfl: 3 ??? aspirin 81 mg Tablet, Delayed Release (E.C.), Daily, Disp: , Rfl: ??? desonide (DESOWEN) 0.05 % Cream, applly to dry scaling areas 1-2 daily, prn (Patient not taking: Reported on 10/19/2016), Disp: 30 g, Rfl: 3 ??? atorvastatin (LIPITOR) 80 mg Tablet, Take 80 mg by mouth daily., Disp: , Rfl: ??? ibuprofen (ADVIL;MOTRIN) 200 mg Tablet, Take 600 mg by mouth 3 times daily as needed for Pain.,Disp: , Rfl: ??? terazosin (HYTRIN) 2 mg capsule, Take 4 mg by mouth daily., Disp: , Rfl: Allergies Allergen Reactions ??? Hydrochlorothiazide ??? Lisinopril [...] Disorders, no family h/o AAA Physical Exam: BP 140/74 (BP Location (NBP): Left arm) Pulse 59 Ht 175.3 cm (5' 9) Wt 94.8 kg (209 lb) BMI 30.86 kg/m2 General - NAD, appears younger than stated [...] refill Vascular Exam: R L Carotid 2/2 bruit (n) 2/2 bruit (n) Radial 2/2 2/2 Femoral 2/2 2/2 Popliteal 2/2 2/2 DP 2/2 2/2 PT 2/2 2/2 Labs: Recent Results (from the past 72 hour(s)) AAA Duplex, Complete/Bilateral Result Value Ref Range VB Text Report Department: Vascular Surgery Lab Patient: [id number] (STORM OLIVARES) CPT: 02142 ICD10: I71.4 Referring Physician: ERIN ESPOSITO Phone: Indications: Patient with known AAA and bilateral common iliac artery aneurysms, ? size ICD10 Diagnosis Code: I71.4 Findings: Infra Renal Aorta PSV (cm/s): 87 EDV (cm/s): 1 Diam AP (cm): 2.6 Diam Lateral (cm): 2.6 Distal Aorta Diam AP (cm): 4.7 Diam Lateral (cm): 4.8 Common Iliac Artery, Proximal, Right PSV (cm/s): 115 EDV (cm/s): 0 Diam AP (cm): 3.2 Diam Lateral (cm): 3.1 Common Iliac Artery, Proximal, Left PSV (cm/s): 97 EDV (cm/s): 10 Diam AP (cm): 2.8 Diam Lateral (cm): 2.8 Interpretation: Patent abdominal aorta with an infra-renal aneurysm measuring approximately 4.7 cm x 4.8 cm. There is mural thrombus/laminated plaque noted within the aneurysm sac. The proximal aorta was not visualized due to ov erlying bowel gas; cannot exclude large diameter here. RIGHT: Patent proximal common iliac artery with an aneurysmal dilation measuring approximately 3.2 cm x 3.1 cm. LEFT: Patent proximal common iliac artery with an aneurysmal dilation measuring approximately 2.8 cm x 2.8 cm. Comparison: No previous study in our vascular lab database for comparison. VB Text Report End of Report AAA Duplex 02/08/16: CTA 07/30/15: FINDINGS: Vascular: Celiac axis: No [...] Assessment and Plan: 70 yo M with 4.8 cm AAA as well as bilateral CHANCE aneurysm (R 3.2 L2.8). Given size < 5.5cm we will continue to observe at this time. Recommend repeat US in 6 months (he prefers to do this locally). If aneurysm has grown significantly he will call to schedule follow up. Otherwise, he will follow-up in 1 year with [place] [facility]. Will plan to perform CTA when aneurysm 5.0cm. Congratulated patient on successful tobacco cessation. Signs and symptoms of symptomatic aneurysm and aneurysm rupture reviewed and patient reported understanding. Marilu Iglesias Vascular Surgery, PGY2 Pager #[phone] * Erin Esposito MD - 12/15/2016 10:00 AM EDT PT seen and examined with vascular resident and I agree with findings below. documented in this encounter Plan of Treatment Upcoming Encounters Date Type Department Care Team (Late st Contact Info) Description 06/20/2024 10:00 AM EST Office Visit Dermatology at [place] [address] [place] [address] Mustapha Lemos MD [address] [facility] [place] [address] documented as of this encounter Visit Diagnoses Diagnosis Abdominal aortic aneurysm (AAA) without rupture documented in this encounter Care Teams Electric Arc Furnace Operator Relationship Specialty Start Date End Date Tr Ribera MD [address] [place] [address] PCP - General 03/22/10 05/23/17 documented as of this encounter
--- OUTSIDE RECORDS SUMMARY | 2023-11-13 09:25 | XMS_ITS | Encounter Summary ---
[place] [address] Care Team Providers Care Data Analytics Architect Name Role Phone Tr Hendrix DO Primary Care Provider [phone] Encounter Details Date Type Department Care Team (Late st Contact Info) Description 05/29/2018 Orders [place] [address] Evelyn Rincon RN Abdominal aortic aneurysm (AAA) without rupture [...] 10:00 AM EST Office Visit Dermatology at [place] [address] [facility] [place] [address] Mustapha Lemos MD [address] [facility] [place] [address] documented as of this encounter Results * Creatinine (08/02/2018 11:03 AM EDT) Creatinine 0.99 0.80 - 1.50 mg/dL [facility] Estimated GFR 75 >=60 mL/min/1.7 3 m?? [facility] Comment: The eGFR was calculated using the CKD-EPI equation. As with all creatinine based estimates of kidney function, eGFR values calculated with the CKD-EPI equation are not accurate in patients with acute kidney failure, extremes of body mass or the acutely ill. [email or web address] eGFR 87 >=60 mL/min/1.7 3 m?? [facility] Comment: The eGFR was calculated using the CKD-EPI equation. As with all creatinine based estimates of kidney function, eGFR values calculated with the CKD-EPI equation are not accurate in patients with acute kidney failure, extremes of body mass or the acutely ill. [email or web address] Blood specimen (specimen) 08/02/2018 11:03 AM EDT 08/02/2018 11:24 AM EDT Narrative Resulting Agency Comment Spec In Lab Shonda Baird MD CHEMISTRY ORDER DAVE [facility] [place] [address] documented in this encounter Visit Diagnoses Diagnosis Abdominal aortic aneurysm (AAA) without rupture documented in this encounter Care Teams Data Analytics Architect Relationship Specialty Start Date End Date Tr Hendrix DO [address] [place] [address] PCP - General Family Medicine 05/24/17 documented as of this encounter
--- OUTSIDE RECORDS SUMMARY | 2023-11-13 09:25 | XMS_ITS | Encounter Summary ---
[place] [address] Care Team Providers Care Human Resources Partner Name Role Phone Tr Hendrix DO Primary Care Provider Encounter Details Date Type Department Care Team (Late st Contact Info) Description 11/30/2017 Telephone [place] [phone] Leah Delgado RN Social History Tobacco Use Types Packs/Day [...] 10:00 AM EST Office Visit Dermatology at [place] [address] [place] [address] Mustapha Lemos MD [address] [facility] [place] [address] documented as of this encounter Visit Diagnoses Not on filedocumented in this encounter Care Teams Human Resources Partner Relationship Specialty Start Date End Date Tr Hendrix DO [address] [place] [address] PCP - General Family Medicine 05/24/17 documented as of this encounter
--- OUTSIDE RECORDS SUMMARY | 2023-11-13 09:25 | XMS_ITS | Encounter Summary ---
[place] [address] Care Team Providers Care Magnetic Locater Name Role Phone Tr Hendrix DO Primary Care Provider [phone] Reason for Visit * Reason Comments Skin Check Encounter Details Date Type Department Care Team (Late st Contact Info) Description 05/24/2017 10:00 AM EST Office Visit Dermatology at [address] [address] Mustapha Lemos MD [address] [facility] DERMAT[facility]Y [place], [place] [id number] Seborrheic dermatitis; History of malignant melanoma Social History Tobacco Use Types Packs/Day Years Used Date Smoking Tobacco: Former Cigarettes 1 50 0 07/29/1965 - 07/30/2015 Smokeless Tobacco: Never Sex and Gender Information Value Date Recorded Sex Assigned at Not on file Gender Identity Not on file Sexual Orientation Not on file documented as of this encounter Progress Notes * Mustapha Lemos MD - 05/24/2017 10:00 AM EST PROBLEMS: 1. Follow-up for yearly skin checkup. 2. History of malignant melanoma, left flank, 0.98 mm Breslow depth, with extension down to deep margin, negative sentinel lymph node biopsy, June 24, 2010. 3. 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 4. History of growing up on [place] with frequent sun exposure. 5. Seborrheic dermatitis. Terry follows up and has been doing well. He did, however, have to go down to [facility] in September, unable to see me, because of worsening of his facial seborrheic dermatitis. We had tried ketoconazole cream in the past. I had also given a prescription for Aclovate cream. At [facility], he apparently was given ketoconazole cream again and ketoconazole shampoo. The shampoo works well for his scalp. Physical examination reveals a pleasant now 72-year-old gentleman who has well-healed surgical scars on his left flank/left back and on the right shoulder. There is no evidence of recurrent pigmentation at these sites. Examination of the head and the neck, chest, back, hands, arms, thighs, and calves is benign. The left anterior axillary line sentinel lymph node biopsy scar remains well-healed. He continues to have mild seborrheic dermatitis of the face and presternal chest. A/P: 1. History of malignant melanomas, left flank, and melanoma in situ, right shoulder. a. No evidence of recurrence. b. Patient reassured. c. Continue yearly skin checkups. Return to clinic in 1 year. 2. Seborrheic dermatitis, facial. a. Recommend that patient begin now using Cutar lotion, applying on a b.i.d. basis to affected areas on the face, allowing to dry for just a few seconds, and then apply ketoconazole cream. Apply b.i.d. every day to see if in 2 weeks we cannot get things to clear up better for him. If not, I will check what is formulary for him and consider perhaps Elidel, Protopic, or other corticosteroid cream. He did not do well with Aclovate, he states. b. Continue with ketoconazole 2% shampoo, which he likes. Dispensed today 120 mL x3 for a 3-month supply with 3 refills. This will be called into his [facility] in [facility]. Return to clinic in 1 year for repeat check. CC: Tr Hendrix DO documented in this encounter Plan of Treatment Upcoming Encounters Date Type Department Care Team (Late st Contact Info) Description 06/20/2024 10:00 AM EST Office Visit Dermatology at [address] [place] [address] Mustapha Lemos MD [address] [facility] [place] [address] documented as of this encounter Visit Diagnoses Diagnosis Seborrheic dermatitis Seborrheic dermatitis, unspecified History of malignant melanoma Personal history of malignant melanoma of skin documented in this encounter Care Teams Magnetic Locater Relationship Specialty Start Date End Date Tr Hendrix DO [address] [place] [address] PCP - General Family Medicine 05/24/17 documented as of this encounter
--- OUTSIDE RECORDS SUMMARY | 2023-11-13 09:25 | XMS_ITS | Encounter Summary ---
[place] [address] Care Team Providers Care Prover Name Role Phone Tr Ribera MD Primary Care Provider [phone] Reason for Visit * Reason Comments Skin Check Encounter Details Date Type Department Care Team (Late st Contact Info) Description 05/06/2013 11:30 AM EST Office Visit Dermatology at [address] [address] Mustapha Lemos MD [address] [facility] DERMAT[facility] [place], [place] [id number] History of malignant melanoma (Primary Dx) Social History Tobacco Use Types Packs/Day Years Used Date Smoking Tobacco: Every Day Cigarettes 1 50 Smokeless Tobacco: Never Comments:pack a day Sex and Gender Information Value Date Recorded Sex Assigned at Not on file Gender Identity Not on file Sexual Orientation Not on file documented as of this encounter Progress Notes * Mustapha Lemos MD - 05/06/2013 12:00 PM EST Problem: 1. Yearly skin checkup. 2. History of malignant melanoma, left flank, 0.98 mm Breslow depth with extension down a follicle to deep margin. Negative sentinel lymph node biopsy June 24, 2010. 3. History of malignant melanoma in situ, right shoulder. 4. History of growing up on [place] with frequent sun exposure. Terry follows up and has been doing well. He has not noted any true lesions of concern. Physical examination reveals a pleasant now 68-year-old gentleman who has a well-healed surgical scar on the left flank/left abdomen and also the right shoulder. There is no evidence of recurrent pigmentation at these sites. Examination of the head and the neck, the chest, the back, hands, arms, forearms, thighs, calves is benign. There is no cervical or axillary adenopathy. The left anterior axillary line sentinel lymph node biopsy scar remains well healed. Assessment and Plan: History of malignant melanoma left flank and melanoma in situ left shoulder. a. No evidence of recurrence. b. Patient reassured. Return to clinic in one year for repeat check. Return reminder one year. COPY: Tr Ribera M.D. documented in this encounter Plan of Treatment Upcoming Encounters Date Type Department Care Team (Late st Contact Info) Description 06/20/2024 10:00 AM EST Office Visit Dermatology at [address] [address] Mustapha Lemos MD [address] [place] [address] [place] [address] documented as of this encounter Visit Diagnoses Diagnosis History of malignant melanoma- Primary Personal history of malignant melanoma of skin documented in this encounter Care Teams Prover Relationship Specialty Start Date End Date Tr Ribera MD [address] [place] [address] PCP - General 03/22/10 05/23/17 documented as of this encounter
--- OUTSIDE RECORDS SUMMARY | 2023-11-13 09:25 | XMS_ITS | Encounter Summary ---
[place] [address] Care Team Providers Care Lap Polisher Name Role Phone Tr Hendrix DO Primary Care Provider [phone] Encounter Details Date Type Department Care Team (Latest Contact Info) Description 12/25/2017 8:32 AM EDT - 12/25/2017 11:59 PM EDT Hospital Encounter [place] [address] [place], [place] Abdominal aortic aneurysm (AAA) without rupture [...] Tablet, Delayed Release (E.C.) Once 06/29/2015 08/02/2018 [place] Tar (CUTAR) 7.5 % Emulsion Twice a day 05/25/2017 08/02/2018 Fesoterodine (TOVIAZ) 4 mg Tablet Sustained Release 24 hr Daily 05/15/2013 08/02/2018 finasteride (PROSCAR) 5 mg Tablet Daily 06/26/2013 08/02/2018 metroNIDAZOLE (FLAGYL) 500 mg Tablet Q6H 08/21/2016 08/02/2018 hydrocortisone (PROCTOSOL HC) 2.5 % cream with perineal applicator Twice a day 04/10/2017 05/24/2018 terazosin (HYTRIN) 5 mg Capsule Bedtime 03/19/2017 06/14/2023 ketoconazole (NIZORAL) 2 % Shampoo 05/25/2017 08/02/2018 ibuprofen (ADVIL;MOTRIN) 600 mg Tablet Three times a day 08/21/2012 05/27/2019 atorvastatin (LIPITOR) 80 mg Tablet Take 80 mg by mouth daily. 03/26/2017 02/14/2021 alclometasone (ACLOVATE) 0.05 % Ointment 60 g. 04/03/2017 08/02/2018 Guukivuf0-[id number]-Igjh p therm. (VSL#3) 112.5 billion cell Capsule Take 1 capsule by mouth 2 times daily. 60 capsule 5 11/27/2017 08/02/2018 PROCTO-MED HC 2.5 % cream with perineal applicator APPLY RECTALLY TWICE DAILY FOR ANAL PROBLEMS 0 04/10/2017 08/02/2018 ketoconazole (NIZORAL) 2 % Shampoo Apply as shampoo once daily (three months supply) 360 mL 3 05/24/2017 05/31/2020 aspirin 81 mg Tablet, Delayed Release (E.C.) Daily 08/21/201208/02 desonide (DESOWEN) 0.05 % Cream applly to dry scaling areas 1-2 daily, prn 30 g 3 05/18/2016 08/02/2018 documented as of this encounter Plan of Treatment Upcoming Encounters Date Type Department Care Team (Late st Contact Info) Description 06/20/2024 10:00 AM EST Office Visit Dermatology at [place] [address] [facility] [place] [address] Mustapha Lemos MD [address] [facility] [place] [address] documented as of this encounter Procedures Procedure Name Priority Date/Time Associated Diagnosis Comments AAA DUPLEX COMPLETE Routine 12/25/2017 8 :45 AM EDT Abdominal aortic aneurysm (AAA) without rupture documented in this encounter Results * AAA Duplex, Complete/Bilateral (12/25/2017 8:45 AM EDT) VB Text Report Department: Vascular Surgery Lab Patient: [id number] (STORM NOLASCO) CPT: 20710 ICD10: I71.4 Referring Physician: ERIN BAIRD ?? [...] MD VASCULAR ORDERA BLES Performing Organization Address City/State/[facility] Co de Phone Number [facility] documented in this encounter Visit Diagnoses Diagnosis Abdominal aortic aneurysm (AAA) without rupture documented in this encounter Care Teams Lap Polisher Relationship Specialty Start Date End Date Tr Hendrix DO [address] [place], [place] [address] [address] PCP - General Family Medicine 05/24/17 documented as of this encounter
--- OUTSIDE RECORDS SUMMARY | 2023-11-13 09:25 | XMS_ITS | Encounter Summary ---
[place] [address] Care Team Providers Care Disk Recoater Name Role Phone Tr Ribera MD Primary Care Provider [phone] Encounter Details Date Type Department Care Team (Late st Contact Info) Description 05/08/2014 9:00 AM EST Office Visit Dermatology at [address] [address] Mustapha Lemos MD [address] [facility] DERMATOLOGY [place], [place] [id number] History of malignant melanoma Discharge Disposition: Home Social History Tobacco Use Types Packs/Day Years Used Date Smoking Tobacco: Every Day Cigarettes 1 50 Smokeless Tobacco: Never Comments:pack a day Sex and Gender Information Value Date Recorded Sex Assigned at Not on file Gender Identity Not on file Sexual Orientation Not on file documented as of this encounter Progress Notes * Mustapha Lemos MD - 05/08/2014 9:29 AM EST Problems: 1. Yearly skin checkup. 2. History of malignant melanoma, left flank, 0.98-mm Breslow depth with extension down the follicle to a deep margin. Negative sentinel lymph node biopsy on June 24, 2010. 3. History of malignant melanoma in situ, right shoulder. 4. History of growing up on [place] with frequent sun exposure. Terry follows up and has been doing well. He has had a good year. Physical examination reveals a pleasant, 68-year-old gentleman who has a well-healed surgical scar on the left flank and on the right shoulder. There is no evidence of recurrent pigmentation at these sites. Examination of the head and neck, chest, back, hands, arms, forearms, thighs, and calves is benign. There is no cervical or axillary adenopathy. The left anterior axillary line sentinel lymph node biopsy scar remains well healed. He has mild seborrheic dermatitis of his face, which he is able to control with just emollients. Assessment and Plan: 1. Previously treated malignant melanoma, left flank, and melanoma in situ, right shoulder. a. No evidence of recurrence. b. Patient reassured. c. Return to clinic in another year for repeat check. d. Continue sun avoidance precautions. 2. Mild seborrheic dermatitis, facial. a. Exacerbated by dry winter weather. b. For now, continue with using an electric razor and using emollient cream; the patient is happy with that approach. COPY: Tr Ribera M.D. documented in this encounter Plan of Treatment Upcoming Encounters Date Type Department Care Team (Late st Contact Info) Description 06/20/2024 10:00 AM EST Office Visit Dermatology at [address] [address] Mustapha Lemos MD [address] [facility] [place] [address] documented as of this encounter Visit Diagnoses Diagnosis History of malignant melanoma Personal history of malignant melanoma of skin documented in this encounter Care Teams Disk Recoater Relationship Specialty Start Date End Date Tr Ribera MD [address] [facility] [place] [address] PCP - General 03/22/10 05/23/17 documented as of this encounter
--- OUTSIDE RECORDS SUMMARY | 2023-11-13 09:25 | XMS_ITS | Encounter Summary ---
[place] [address] Care Team Providers Care Rodeo Rider Name Role Phone Tr Hendrix DO Primary Care Provider [phone] Reason for Referral * Diagnostic Test (Routine) - Closed Specialty Diagnoses / Procedures Referred By Contac t Referred To Contact Radiology Diagnoses Abdominal aortic aneurysm (AAA) without rupture Iliac artery aneurysm Procedures CT Angiogram Abdomen & Pelvis w Contrast (Generic) [facility] [address] [place] [address] [facility] [place] [address] Referral ID Status Reason Start Date Expiration Date V isits Requested Visits Authorized [id number] Closed Specialty Service Requested 12/26/2017 12/26/2018 1 1 Reason for Visit * Diagnostic Test (Routine) - Closed Specialty Diagnoses / Procedures Referred By Contac t Referred To Contact Radiology Diagnoses Abdominal aortic aneurysm (AAA) without rupture Iliac artery aneurysm Procedures CT Angiogram Abdomen & Pelvis w Contrast (Generic) [facility] [address] [place] [address] [facility] [place] [address] Referral ID Status Reason Start Date Expiration Date V isits Requested Visits Authorized [id number] Closed Specialty Service Requested 12/26/2017 12/26/2018 1 1 Encounter Details Date Type Department Care Team (Latest Contact Info) Description 08/02/2018 12:35 PM EDT - 08/02/2018 11:59 PM EDT Hospital [place] [address] Shonda Baird MD [facility] [place] [address] Abdominal aortic aneurysm (AAA) without rupture; Iliac artery aneurysm Discharge Disposition: Home Social History Tobacco Use [...] Tablet Three times a day 08/21/2012 0 atorvastatin (LIPITOR) 80 mg Tablet Take 80 mg by mouth daily. 03/26/2017 02/14/2021 ketoconazole (NIZORAL) 2 % Shampoo Apply as shampoo once daily (three months supply) 360 mL 3 05/24/2017 05/31/2020 documented as of this encounter Plan of Treatment Upcoming Encounters Date Type Department Care Team (Late st Contact Info) Description 06/20/2024 10:00 AM EST Office Visit Dermatology at [place] [address] [facility] [place] [address] Mustapha Lemos MD 580 [facility] [place] [address] documented as of this encounter Procedures Procedure Name Priority Date/Time Associated Diagnosis Comments CT ANGIOGRAM ABDOMEN AND PELVIS W CONTRAST Routine 08/02/2018 1:06 PM EDT Abdominal aortic aneurysm (AAA) without rupture Iliac artery aneurysm documented in this encounter Results * CT [...] below. ? Electronically signed by: Choco Walton [facility] ([phone]), at 08/02/2018 2:02 PM Narrative 08/02/2018 2:02 PM EDT EXAMINATION: CT [...] of iliac artery documented in this encounter Administered Medications Inactive Administered Medications - up to 3 most recent administrations Medication Order MAR Action Action Date Dose Rate Site iohexol (OMNIPAQUE) 350 mg/mL solution 0-200 mL 0-200 mL, Intravenous, ONCE PRN, 1 dose, Starting on Sun08/02/18 at 1252, Until Sun08/02/18 at 1306, Per Protocol, Warning Vesicant/Irritant Medication , Radiology Contrast, Routine Given 08/02/2018 1:06 PM EDT 67 mLs documented in this encounter Care Teams Rodeo Rider Relationship Specialty Start Date End Date Tr Hendrix DO [address] [place] [address] PCP - General Family Medicine 05/24/17 documented as of this encounter
--- OUTSIDE RECORDS SUMMARY | 2023-11-13 09:25 | XMS_ITS | Encounter Summary ---
[place] [address] Care Team Providers Care Curing Press Maintainer Name Role Phone Tr Ribera MD Primary Care Provider [phone] Encounter Details Date Type Department Care Team (Late st Contact Info) Description 05/18/2016 Refill Dermatology at [address] [phone] Yvrose Mcwilliams, TRANSPORT TANK TECHNICIAN Social History Tobacco Use Types Packs/Day Years [...] 10:00 AM EST Office Visit Dermatology at [address] [place] [phone] Mustapha Lemos MD 580 [facility] [place] [address] documented as of this encounter Visit Diagnoses Not on filedocumented in this encounter Care Teams Curing Press Maintainer Relationship Specialty Start Date End Date Tr Ribera MD [address] [place] [address] PCP - General 03/22/10 05/23/17 documented as of this encounter
--- OUTSIDE RECORDS SUMMARY | 2023-11-13 09:25 | XMS_ITS | Encounter Summary ---
[place] [address] Care Team Providers Care Swimming Pool Attendant Name Role Phone Tr Ribera MD Primary Care Provider [phone] Reason for Visit * Reason Comments Skin Check Encounter Details Date Type Department Care Team (Late st Contact Info) Description 04/17/2011 8:45 AM EST Office Visit Dermatology [address] [place] [address] [address] [place], [place] [id number] Mustapha Lemos MD [address] [facility] [place] [address] Seborrheic keratosis (Primary Dx) Social History Tobacco Use Types Packs/Day Years Used Date Smoking Tobacco: Every Day Smokeless Tobacco: Never Comments:pack a day Sex and Gender Information Value Date Recorded Sex Assigned at Not on file Gender Identity Not on file Sexual Orientation Not on file documented as of this encounter Progress Notes * Mustapha Lemos MD - 04/17/2011 8:17 PM EST Dictated. Pathology Addendum per [facility] 04/21/11 : Verruca Vulgaris, inflamed, left angle of jaw documented in this encounter Miscellaneous Notes * Miscellaneous - Lorenzo Guan - 04/20/2011 1:53 PM EST documented in this encounter Plan of Treatment Upcoming Encounters Date Type Department Care Team (Late st Contact Info) Description 06/20/2024 10:00 AM EST Office Visit Dermatology at [place] 580 [facility] [place] [address] Mustapha Lemos MD [address] [facility] [place] [address] documented as of this encounter Visit Diagnoses Diagnosis Seborrheic keratosis- Primary Other seborrheic keratosis documented in this encounter Care Teams Swimming Pool Attendant Relationship Specialty Start Date End Date Tr Ribera MD [address] [place] [address] PCP - General 03/22/10 05/23/17 documented as of this encounter
--- OUTSIDE RECORDS SUMMARY | 2023-11-13 09:25 | XMS_ITS | Encounter Summary ---
Author Organization [facility] Address [facility] [address] Care Team Providers Care Transition Social Worker Name Role Phone Tr Hendrix DO Primary Care Provider [phone] Encounter Details Date Type Department Care Team (Latest Contact Info) Description 06/01/2017 - 06/01/2017 11:59 PM EST Hospital Encounter [place] [address] Shonda Baird MD [facility] [place] [address] Discharge Disposition: Home Social History Tobacco Use [...] Tablet, Delayed Release (E.C.) Once 06/29/2015 08/02/2018 Hart Tar (CUTAR) 7.5 % Emulsion Twice a [...] Bedtime 03/19/2017 06/14/2023 ketoconazole (NIZORAL) 2 % Cream 15 g. 05/25/2017 12/25/2017 ketoconazole (NIZORAL) 2 % Shampoo 05/25/2017 08/02/2018 ibuprofen (ADVIL;MOTRIN) 600 mg Tablet Three times a day 08/21/2012 05/27/2019 atorvastatin (LIPITOR) 80 mg Tablet Take 80 mg by mouth daily. 03/26/2017 02/14/2021 aspirin 81 mg Tablet, Delayed Release (E.C.) Daily 08/21/201212/25 alclometasone (ACLOVATE) 0.05 % Ointment 60 g. 04/03/2017 08/02/2018 PROCTO-MED HC 2.5 % cream with perineal applicator APPLY RECTALLY TWICE DAILY FOR ANAL PROBLEMS 0 04/10/2017 08/02/2018 ketoconazole (NIZORAL) 2 % Shampoo Apply as shampoo once daily (three months supply) 360 mL 3 05/24/2017 05/31/2020 alclomethasone (ACLOVATE) 0.05 % Ointment Apply topically 2 times daily. 12/25/2017 aspirin 81 mg Tablet, Delayed Release (E.C.) [...] 10:00 AM EST Office Visit Dermatology at [address] [place] [address] Mustapha Lemos MD 580 [facility] [place] [address] documented as of this encounter Procedures Procedure Name Priority Date/Time Associated Diagnosis Comments FILM LIBRARY STORAGE ONLY ULTRASOUND STUDY Routine 06/01/2017 12:00 AM EST documented in this encounter Results * Film Library- Storage Only Ultrasound Study (06/01/2017 12:00 AM EST) Narrative [facility] - 06/01/2017 3:19 PM EST This exam is for storage only and is auto-finalizing. Shonda Baird MD IMG FILM LIBRAR Y ORDERABLES Performing Organization Address City/State/[facility] Co de Phone Number [place], [place] documented in this encounter Visit Diagnoses Not on filedocumented in this encounter Care Teams Transition Social Worker Relationship Specialty Start Date End Date Tr Hendrix DO [address] [place] [address] PCP - General Family Medicine 05/24/17 documented as of this encounter
--- OUTSIDE RECORDS SUMMARY | 2023-11-13 09:25 | XMS_ITS | Encounter Summary ---
Author Organization [facility] Address [facility] [place] [address] Care Team Providers Care General Pediatrician Name Role Phone Tr Ribera MD Primary Care Provider [phone] Encounter Details Date Type Department Care Team (Latest Contact Info) Description 04/27/2011 12:12 PM EST - 04/27/2011 11:59 PM [facility] [place] [address] CLINIC, Benton Rhoades MD [facility] HEMATOLOGY/[place] [address] Discharge Disposition: Home Social History Tobacco Use [...] 10:00 AM EST Office Visit Dermatology at [address] [place] [address] Mustapha Lemos MD 580 [facility] DERMATOLOGY [place], [place] [phone] documented as of this encounter Visit Diagnoses Not on filedocumented in this encounter Care Teams General Pediatrician Relationship Specialty Start Date End Date Tr Ribera MD [address] [place] [address] PCP - General 03/22/10 05/23/17 documented as of this encounter
--- OUTSIDE RECORDS SUMMARY | 2023-11-13 09:25 | XMS_ITS | Encounter Summary ---
[place] [address] Care Team Providers Care Washer Engineer Helper Name Role Phone Tr Ribera MD Primary Care Provider [phone] Encounter Details Date Type Department Care Team (Late st Contact Info) Description 10/09/2016 Orders [place] [address] Ailyn Wyman RN Abdominal aortic aneurysm (AAA) without rupture [...] 10:00 AM EST Office Visit Dermatology at [place] [address] [facility] [place] [phone] Mustapha Lemos MD 580 [facility] [place] [address] documented as of this encounter Results * AAA Duplex, Complete/Bilateral (12/15/2016 9:12 AM EDT) VB Text Report Department: Vascular Surgery Lab Patient: [id number] (STORM NOLASCO) CPT: 82784 ICD10: I71.4 Referring Physician: ERIN BAIRD ?? [...] database for comparison. Electronically Signed by: ERIN BAIRD on 2016-12-15 02:41:07 PM [facility] VB Text Report End of Report [facility] 12/15/2016 9:12 AM EDT Erin Baird MD VASCULAR ORDERA [facility] Organization Address City/State/ZIP Co de Phone Number [facility] documented in this encounter Visit Diagnoses Diagnosis Abdominal aortic aneurysm (AAA) without rupture documented in this encounter Care Teams Washer Engineer Helper Relationship Specialty Start Date End Date Tr Ribera MD [address] [place] [address] PCP - General 03/22/10 05/23/17 documented as of this encounter
--- OUTSIDE RECORDS SUMMARY | 2023-11-13 09:25 | XMS_ITS | Encounter Summary ---
[place] [address] Care Team Providers Care Silk Spooler Name Role Phone Tr Hendrix DO Primary Care Provider [phone] Reason for Referral * Diagnostic Test (Routine) - Closed Specialty Diagnoses / Procedures Referred By Contac t Referred To Contact Radiology Diagnoses Abdominal aortic aneurysm (AAA) without rupture Procedures CT Angiogram Abdomen & Pelvis w Contrast (Generic) Erin Esposito MD [facility] [place] [address] [facility] [place] [address] Referral ID Status Reason Start Date Expiration Date V isits Requested Visits Authorized [id number] Closed Specialty Service Requested 08/02/2018 08/02/2019 1 1 Encounter Details Date Type Department Care Team (Late st Contact Info) Description 08/02/2018 3:00 PM EDT Office [place] [address] Erin Esposito MD [facility] [place]ASC[place] [address] Abdominal aortic aneurysm (AAA) without rupture; Iliac [...] Sign Reading Time Taken Comments Blood Pressure 145/68 08/02/2018 1:29 PM EDT Pulse 59 08/02/2018 1:29 PM EDT Temperature - - Respiratory Rate - - Oxygen Saturation - - Inhaled Oxygen Concentration - - Weight 93 kg (205 lb) 08/02/2018 1:29 PM EDT rep orted Height 175.3 cm (5' 9) 08/02/2018 1:29 PM EDT r eported Body Mass Index 30.27 08/02/2018 1:29 PM EDT documented in this encounter Progress Notes * Erin Esposito MD - 08/02/2018 3:00 PM EDT OUTPATIENT VASCULAR SURGERY CONSULTATION Reason for Visit: AAA History of Present Illness:Storm Nolasco is a 73 yo M here for follow-up evaluation of his AAA and bilateral iliac aneurysms. He has had known AAA for several years which has been followed serially with [facility]. He quit smoking 2-3 years ago. Atherosclerotic Risk Factors: (n) DM (y) HTN (y) Hyperlipidemia reports that he quit smoking about 3 years ago. His smoking use included cigarettes. He has a 50.00pack-year smoking history. He has never used smokeless tobacco. Cardiovascular History: (n) Previous RI (n) Angina (n) CHF (n) Arrythmia (n) [...] N40.0 ??? Increased frequency of urination R35.0 ??? Iliac artery aneurysm I72.3 Current Outpatient Medications: ??? mirabegron 50 mg [...] No current facility-administered medications for this visit. Allergies Allergen Reactions ??? Hydrochlorothiazide ??? Lisinopril [...] Hx: Lives at home, Retired, Drives Car, + Tobacco Use Family Hx: Negative for Thrombosis, Bleeding Disorders, no family h/o AAA Physical Exam: BP 145/68 (BP Location (NBP): Left arm, Patient Position: Sitting, BP Cuff Sizes: Adult (25-34 cm)) Pulse 59 Ht 175.3 cm (5' 9) Comment: reported Wt 93 kg (205 lb) Comment: reported BMI 30.27 kg/m?? General - NAD, appears younger than stated age Neuro - Alert and Oriented, Motor Sensory grossly intact Skin - No prominent markings or lesions Ear, Nose, Throat - No masses, No lesions Cardiac - RRR, II/ PEDRO Lungs - Clear Abd - Soft, obese, NT, ND, + palpable aortic pulse Musculoskeletal- full ROM upper and lower extremities Psych- alert oriented X3 , Extremities - Warm, pink, no edema, brisk capillary refill Vascular Exam: R L Carotid 2/2 bruit (n) 2/2 bruit (n) Radial 2/2 2/2 Femoral 2/2 2/2 Popliteal 3+ 2/2 DP 2/2 2/2 PT 2/2 2/2 Labs: Recent Results (from the past 72 hour(s)) Creatinine Result Value Ref Range Creatinine 0.99 0.80 - 1.50 mg/dL eGFR 75 >=60 mL/min/1.73 m?? eGFR 87 >=60 mL/min/1.73 m?? 07/2015 (CT) 4.7 cm AAA 11/2016 (US) 4.8 cm AAA 11/2017 (US) 4.9 cm AAA 07/2018 (CT) 5.3 cm AAA Assessment and Plan: 73 yo M with known infrarenal AAA, now 5.3cm in diameter. In addition he has bilateral iliac aneurysms, now 3.0 on R and 2.9cm. The neck of his aneurysm demonstrates disease as well. Although he is approaching the diameter for repair, his just had a major surgery and he iscurrently caring for her. For this reason we will plan for a follow-up in December with a repeat CTA. He will see my partner, Dr. Duke, at that time to discuss options for repair which include a fenestrated graft as well as bilateral EDUARDO. He also has a strongly palpable R popliteal pulse. We will get bilateral arterial duplex to r/o aneurysms at the time of his next visit. documented in this encounter Plan of Treatment Upcoming Encounters Date Type Department Care Team (Late st Contact Info) Description 06/20/2024 10:00 AM EST Office Visit Dermatology at [place] [address] [facility] [place] [address] Mustapha Lemos MD [address] [facility] [address] Scheduled Orders Name Type Priority Associated Diagnoses Orde r Schedule Creatinine Lab STAT Abdominal aortic aneurysm (AAA) without rupture Expected: 08/02/2018, Expires: 08/02/2019 documented as of this encounter Results * [...] this report, please contact the number below. Erin Esposito MD IMG CT ORDERABL ES * Arterial Duplex, Bilat Legs (02/27/2019 11:04 AM EDT) VB Text Report Department: Vascular Surgery Lab Patient: [id number] (STORM NOLASCO) CPT: 56786 ICD10: I71.4 Referring Physician: ERIN ESPOSITO ?? Phone: Indications: AAA w/o rupture, strong [...] [facility] 02/27/2019 11:0 4 AM EDT Erin Esposito MD VASCULAR ORDERA [facility] documented in this encounter Visit Diagnoses Diagnosis Abdominal aortic aneurysm (AAA) without rupture Iliac artery aneurysm Aneurysm of iliac artery Abdominal aortic aneurysm (AAA) without rupture documented in this encounter Care Teams Silk Spooler Relationship Specialty Start Date End Date Tr Hendrix DO [address] [place] [address] PCP - General Family Medicine 05/24/17 documented as of this encounter
--- OUTSIDE RECORDS SUMMARY | 2023-11-13 09:25 | XMS_ITS | Encounter Summary ---
Author Organization On License Of [facility] Address [facility] [place] [address] Care Team Providers Care Therapy Technician Name Role Phone Tr Ribera MD Primary Care Provider [phone] Reason for Visit * Reason Comments Follow-up Encounter Details Date Type Department Care Team (Late st Contact Info) Description 10/26/2011 2:00 PM EDT Follow-Up Hemat[place] [address] Benton Foley MD [facility] DR HEMATOLOGY/[place] [address] Melanoma (Primary Dx) Discharge Disposition: Home Social History Tobacco Use [...] Sign Reading Time Taken Comments Blood Pressure 130/68 10/26/2011 1:49 PM EDT Pulse 65 10/26/2011 1:49 PM EDT Temperature 36.8 ??C (98.2 ??F) 10/26/2011 1:49 PM ED T Respiratory Rate 15 10/26/2011 1:49 PM EDT Oxygen Saturation 94% 10/26/2011 1:49 PM EDT Inhaled Oxygen Concentration - - Weight 103 kg (227 lb 1.2 oz) 10/26/2011 1:49 PM EDT Height 176.5 cm (5' 9.49) 10/26/2011 1:49 PM ED T Body Mass Index 33.06 10/26/2011 1:49 PM EDT documented in this encounter Progress Notes * Marta Heath, METAL SPRAYING MACHINE OPERATOR - 10/26/2011 2:26 PM EDT Melanoma Pathology Date of Biopsy: May 18 [...] for metastatic disease. Mr. Fontaine is a 66 year old patient with stage 1B melanoma of the left flank in April 2010. He presents for interim follow up and we have been alternating visits with Dr. Lemos. He has no complaints and is enjoying working in his large [employer] garden.l He pracitices good sun protection. HPI He had a questionable liver lesion seen on outside CT and US, and MRI of the abdomen was performed in follow up. Initially a CT guided liver biopsy was requested but the lesion appeared cystic and Radiology recommended MRI as a better option to characterize the lesion in question. Preliminarily MRIreport identifies a well delineated 3.1x2.5cm high signal focus in the left hepatic lobe which appears to be a cyst, and an additional smaller, 9 mm high focus on the right lobe of the liver consistent with hemangioma. Review of Systems: SUPERVISOR PIPELINE MAINTENANCE/PNS: negative Throat: negative Pulmonary: Negative, Smokes 1 ppd Renal: negative Endocrine: negative Genitourinary: Slow stream on hytrin. Wakes at night to void. Dermatology: See history. Eyes: negative Nose: negative Cardiovascular: Denies chest pain, etc. Asymptomatic AAA seen on outside scans being monitored locally by his PCP. GI: negative Rheumatologic: negative Hematologic: negative LABORATORY: All values stable. EXAM: General: Mr. Nolasco is a [...] Second primary MIS stage 0 ANA on exam and labs Plan: The patient wishes to have his follow up locally and will see Dr. Lemos every 6 months. He has an appointment with Dr. Lemos in December and will make another appointment to see him in June. We are available as needed in the interim for questions or concerns. I encouraged him to continue with good sun protection and not to miss his appointments for skin checks. Recent Results (from the past 72 hour(s)) CBC (WITH DIFF) Component Value Range ??? WBC 8.0 4.0 - 10.0 (x10(3)/mcL) ??? RBC 4.52 (*) 4.63 - 6.08 (x10(6)/mcL) ??? Hemoglobin 14.8 13.7 - 17.5 (gm/dL) ??? Hematocrit 41.7 40.0 - 51.0 (%) ??? MCV 92.3 (*) 79.0 - 92.0 (fL) ??? MCH 32.7 (*) 25.6 - 32.2 (pg) ??? MCHC 35.5 32.0 - 36.5 (gm/dL) ??? Platelets 188 145 - 370 (x10(3)/mcL) ??? RDWSD 43.3 35.0 - 46.0 (fL) ??? RDWCV 12.9 10.9 - 14.4 (%) ??? MPV 10.2 9.0 - 12.0 (fL) COMPREHENSIVE METABOLIC PANEL (NON-FASTING) Component Value Range ??? Glucose Lvl 92 60 - 199 (mg/dL) ??? BUN 14 10 - 20 (mg/dL) ??? Creatinine 0.86 0.80 - 1.50 (mg/dL) ??? Sodium 137 135 - 145 (mmol/L) ??? Potassium 4.0 3.5 - 5.0 (mmol/L) ??? Chloride 102 98 - 107 (mmol/L) ??? CO2 27 22 - 31 (mmol/L) ??? Anion Gap 8 5 - 15 (mmol/L) ??? Calcium 9.2 8.5 - 10.5 (mg/dL) ??? Total Protein 7.1 6.4 - 8.3 (gm/dL) ??? Albumin 4.6 3.2 - 5.2 (gm/dL) ??? AST 23 0 - 39 (unit/L) ??? ALT 25 0 - 55 (unit/L) ??? Alk Phos 75 40 - 120 (unit/L) ??? Total Bilirubin 0.4 0.2 - 1.3 (mg/dL) ??? Bili, Direct 0.1 0.0 - 0.3 (mg/dL) ? ? Estimated GFR >60 >=60 LACTATE DEHYDROGENASE Component Value Range ??? LDH 128 110 - 220 (unit/L) DIFFERENTIAL, AUTOMATED Component Value Range ??? Neutrophils % 65.9 34.0 - 71.0 (%) ??? Neutr Abs (ANC) 5.25 1.50 - 6.30 (x10(3)/mcL) ??? Lymphocytes % 24.8 19.0 - 53.0 (%) ??? Lymphocytes Abs 2.0 1.0 - 3.6 (x10(3)/mcL) ??? Monocytes % 6.0 4.0 - 13.0 (%) ??? Monocyte Abs 0.5 0.2 - 1.0 (x10(3)/mcL) ??? Eosinophils % 2.6 0.0 - 7.0 (%) ??? Eosinophils Abs 0.2 0.0 - 0.5 (x10(3)/mcL) ??? Basophils % 0.4 0.0 - 2.0 (%) ??? Basophils Abs 0.0 0.0 - 0.2 (x10(3)/mcL) ??? Immature Gran % 0.30 0.00 - 0.66 (%) ??? Melanie Gran Abs 0.02 0.00 - 0.05 (x10(3)/mcL) documented in this encounter Plan of Treatment Upcoming Encounters Date Type Department Care Team (Late st Contact Info) Description 06/20/2024 10:00 AM EST Office Visit Dermatology at [address] [address] Mustapha Lemos MD [address] [facility] [place] [address] documented as of this encounter Visit Diagnoses Diagnosis Melanoma- Primary Melanoma of skin, site unspecified documented in this encounter Care Teams Therapy Technician Relationship Specialty Start Date End Date Tr Ribera MD [address] [place] [address] PCP - General 03/22/10 05/23/17 documented as of this encounter
--- OUTSIDE RECORDS SUMMARY | 2023-11-13 09:25 | XMS_ITS | Encounter Summary ---
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 as of 01/2015 Tr Ribera MD [address] [place] [address] [facility] Vascular Surg [address] [place] [address] Referral ID Status Reason Start Date Expiration Date V isits Requested Visits Authorized [id number] Closed Consult, Test & Treat Connection Center 06/29/2015 06/28/2016 1 1 Encounter Details Date Type Department Care Team (Late st Contact Info) Description 07/30/2015 1:30 PM EDT Office Visit [place] [address] Shonda Baird MD [facility] [place] [address] Abdominal aortic aneurysm without rupture Social History [...] Sign Reading Time Taken Comments Blood Pressure 122/59 07/30/2015 1:14 PM EDT l a rm Pulse 65 07/30/2015 1:14 PM EDT Temperature - - Respiratory Rate 20 07/30/2015 1:14 PM EDT Oxygen Saturation - - Inhaled Oxygen Concentration - - Weight 94.3 kg (208 lb) 07/30/2015 1:14 PM EDT Height 175.3 cm (5' 9) 07/30/2015 1:14 PM EDT Body Mass Index 30.72 07/30/2015 1:14 PM EDT documented in this encounter Patient Instructions * Patient Instructions* Shonda Baird MD - 07/30/2015 2:02 PM EDT Please work on quitting smoking. Follow-up with your PCP in 6 months for an US and with me in 1 year. documented in this encounter Progress Notes * Shonda Baird MD - 07/30/2015 1:57 PM EDT OUTPATIENT VASCULAR SURGERY CONSULTATION Reason for Visit: AAA History of Present Illness:Storm Nolasco is a 70 yo M referred by TR RIBERA MD forevaluation of AAA. He has had known AAA for several years which has been followed serially with US.Most recently it grew to 4.8cm and he was referred for evaluation. He is an active smoker, however recently started Chantix in an effort to quit. Atherosclerotic Risk Factors: (n) DM (y) HTN (y) Hyperlipidemia reports that he has been smoking Cigarettes. He has a 50 pack-year smoking history. He has never used smokeless tobacco. Cardiovascular History: (n) Previous PA (n) Angina (n) CHF (n) Arrythmia (n) copd Patient Active Problem List Diagnosis Code ??? Melanoma C43.9 ??? Hypertension I10 ??? History of malignant melanoma Z85.820 ??? Seborrheic dermatitis L21.9 ??? Hyperlipidemia E78.5 ??? Obesity E66.9 ??? History of BPH Z87.438 ??? Tobacco dependence syndrome F17.200 ??? Liver hemangioma D18.03 ??? AAA (abdominal aortic aneurysm) I71.4 ??? Adenomatous polyp of colon D12.6 Current outpatient prescriptions: ??? atorvastatin (LIPITOR) 80 mg Tablet, Take 80 mg by mouth daily., Disp: , Rfl: ??? Fesoterodine (TOVIAZ) 4 mg Tablet Sustained Release 24 hr, Take by mouth daily. Takes 2 tabs daily, Disp: , Rfl: ??? ibuprofen (ADVIL;MOTRIN) 200 mg Tablet, Take 600 mg by mouth 3 times daily as needed for Pain.,Disp: , Rfl: ??? acyclovir (ZOVIRAX) 200 mg capsule, Take by mouth every 4 hours (while awake)., Disp: , Rfl: ??? aspirin 81 mg tablet, Take 81 mg by mouth daily., Disp: , Rfl: ??? terazosin (HYTRIN) 2 mg capsule, Take 4 mg by mouth daily., Disp: , Rfl: ??? 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 Given size < 5.5cm we will continue to observe at this time. Recommend repeat US in 6 months (he prefers to do this locally). He will follow- up with me in 1 year with US. If 6 month duplex diameter is >5.2 he should be referred sooner. documented in this encounter Plan of Treatment Upcoming Encounters Date Type Department Care Team (Late st Contact Info) Description 06/20/2024 10:00 AM EST Office Visit Dermatology at [place] [address] [place] [address] Mustapha Lemos MD [address] [facility] [place] [address] documented as of this encounter Visit Diagnoses Diagnosis Abdominal aortic aneurysm without rupture Abdominal aneurysm without mention of rupture documented in this encounter Care Teams Home Health Attendant Relationship Specialty Start Date End Date Tr Ribera MD [address] [place] [address] PCP - General 03/22/10 05/23/17 documented as of this encounter
--- OUTSIDE RECORDS SUMMARY | 2023-11-13 09:25 | XMS_ITS | Encounter Summary ---
Author Organization [facility] [place] [address] Care Team Providers Care Glazier Helper Name Role Phone Tr Ribera MD Primary Care Provider [phone] Encounter Details Date Type Department Care Team (Late Contact Info) Description 10/24/2011 Orders Only Hematology [place] [address] Benton Foley MD [facility] [address] HEMATOLOGY/[place] [address] Melanoma (Primary Dx) Social History Tobacco Use Types [...] 10:00 AM EST Office Visit Dermatology at [place] [address] [place] [phone] Mustapha Lmeos MD [address] [facility] DERMATOLOGY [place], [place] [id number] documented as of this encounter Results * Lactate Dehydrogenase (10/26/2011 12:55 PM EDT) LDH 128 110 - 220 unit/L CERNER MILLENNIUM Blood specimen (specimen) 10/26/2011 12:55 PM EDT 10/26/2011 1:05 PM EDT Narrative Resulting Agency Comment Spec In Lab Benton Foley MD CHEMISTRY ORDERABLES CERNER MILLENNIUM * Comprehensive metabolic panel (non-fasting) (10/26/2011 12:55 PM EDT) [facility] Signature Glucose Lvl 92 60 - 199 mg/dL CERNER MILLENNIUM Comment:Diabetes: >=200 mg/d L plus symptoms BUN 14 10 - 20 mg/dL CERNER MILLENNIUM Creatinine 0.86 0.80 - 1.50 mg/dL CERNER MILLENNIUM Comment: Please note that the pediatric reference intervals supplied above were not validated at [facility]. Results from pediatric patients should be [...] In Lab Benton Foley MD CHEMISTRY ORDERABLES [facility] * (ABNORMAL) CBC (with Diff) (10/26/2011 12:55 [...] Lab Benton Foley MD HEMATOLOGY ORDERABLE [facility] documented in this encounter Visit Diagnoses Diagnosis Melanoma- Primary Melanoma of skin, site unspecified documented in this encounter Care Teams Glazier Helper Relationship Specialty Start Date End Date Tr Ribera MD [address] [place] [address] PCP - General 03/22/10 05/23/17 documented as of this encounter
--- OUTSIDE RECORDS SUMMARY | 2023-11-13 09:25 | XMS_ITS | Encounter Summary ---
[place] [address] Care Team Providers Care Florist'S Decorator Name Role Phone Tr Ribera MD Primary Care Provider [phone] Reason for Visit * Reason Comments Skin Check Annual Encounter Details Date Type Department Care Team (Late st Contact Info) Description 05/18/2016 9:30 AM EST Office Visit Dermatology at [address] [address] Mustapha Lemos MD [address] [facility] DERMATOLOGY [place], [place] [id number] History of malignant melanoma; Seborrheic dermatitis Social History Tobacco Use Types Packs/Day Years Used Date Smoking Tobacco: Former Cigarettes 1 50 Smokeless Tobacco: Never Comments:pack a day Sex and Gender Information Value Date Recorded Sex Assigned at Not on file Gender Identity Not on file Sexual Orientation Not on file documented as of this encounter Progress Notes * Mustapha Lemos MD - 05/18/2016 9:30 AM EST PROBLEM: 1. Yearly skin checkup. 2. History of malignant melanoma left flank 0.9 mm Breslow depth with extension down to follicle through the deep margin. Negative sentinel lymph node biopsy 06/24/2010. 3. History of malignant melanoma right shoulder 06/2010. 4. History of growing up in [place] with frequent sun exposure. Terry follows up and has been doing well. He has seborrheic dermatitis that is still a big problem, though, and did not improve at all with the month's worth of ketoconazole cream last year. Physical examination reveals a pleasant 70-year-old gentleman who has a well-healed surgical scar on the left back and on his right shoulder. There is no evidence of recurrent pigmentation at these sites. Examination of the head and the neck, chest, back, hands, arms, forearms, thighs and the calves is benign. There is no left axillary adenopathy. The left anterior axillary line sentinel lymph node biopsy scar remains well healed. His seborrheic dermatitis is more pronounced today on the face in the nasolabial fold areas, on his chin, glabella, but also on the presternal chest as last year. A/P: 1. History of malignant melanomas left flank and melanoma in situ right shoulder. a. No evidence of recurrence. b. Patient reassured. c. Continue yearly checkups. Return to clinic in 1 year. 2. Seborrheic dermatitis facial. a. Begin trial of desonide cream applying to face daily b.i.d. to red scaling areas. Dispensed 30 g with 3 refills. cc: Tr Ribera MD documented in this encounter Plan of Treatment Upcoming Encounters Date Type Department Care Team (Late st Contact Info) Description 06/20/2024 10:00 AM EST Office Visit Dermatology at [address] [address] Mustapha Lemos MD [address] [place] [address] [place] [address] documented as of this encounter Visit Diagnoses Diagnosis History of malignant melanoma Personal history of malignant melanoma of skin Seborrheic dermatitis Seborrheic dermatitis, unspecified documented in this encounter Care Teams Florist'S Decorator Relationship Specialty Start Date End Date Tr Ribera MD [address] [place] [address] PCP - General 03/22/10 05/23/17 documented as of this encounter
--- OUTSIDE RECORDS SUMMARY | 2023-11-13 09:25 | XMS_ITS | Encounter Summary ---
[place] [address] Care Team Providers Care Tester Rocket Engine Name Role Phone Tr Ribera MD Primary Care Provider [phone] Encounter Details Date Type Department Care Team (Latest Contact Info) Description 07/30/2015 11:00 AM EDT Laboratory Appointment Lab [address] [place] [address] Abdominal aortic aneurysm without rupture Social History [...] 10:00 AM EST Office Visit Dermatology at [place] [address] [facility] [address] [facility] [place] [phone] Mustapha Lemos MD [address] [facility] [place] [address] documented as of this encounter Procedures Procedure Name Priority Date/Time Associated Diagnosis Comments CREATININE STAT 07/30/2015 10:59 AM EDT Abdominal aortic aneurysm without rupture documented in this encounter Results * Creatinine (07/30/2015 10:59 AM EDT) Creatinine 1.07 0.80 - 1.50 mg/dL [facility] Comment: Please note that the pediatric reference intervals supplied above were not validated at [facility]. Results from pediatric patients should be interpreted in conjunction to the patient's age, height and muscle mass. Estimated GFR >60 >=60 [facility] Comment: This estimated GFR (eGFR) [...] the following links into your internet browser. [email or web address]/DHnkdep [email or web address] Blood specimen (specimen) 07/30/2015 10:59 AM EDT 07/30/2015 11:15 AM EDT Narrative Resulting Agency Comment Spec In Lab Shonda Baird MD CHEMISTRY ORDER DAVE [facility] [place] [address] documented in this encounter Visit Diagnoses Diagnosis Abdominal aortic aneurysm without rupture Abdominal aneurysm without mention of rupture documented in this encounter Care Teams Tester Rocket Engine Relationship Specialty Start Date End Date Tr Ribera MD [address] [place] [address] PCP - General 03/22/10 05/23/17 documented as of this encounter
--- OUTSIDE RECORDS SUMMARY | 2023-11-13 09:26 | XMS_ITS | Clinical Summary ---
Author Organization [facility] Address [address] [place] [address] Care Team Providers Care Cemetery Manager Name Role Phone Tr Hendrix DO Primary Care Provider [phone] Social History Tobacco Use Types Packs/Day Years Used Date Smoking Tobacco: Never Assessed Interpersonal Safety Answer Date Record ed Physically Hurt Never 02/20/2020 Verbally Threaten Not on file 02/20/2020 Sex and Gender Information Value Date Recorded Sex Assigned at Not on file Gender Identity Not on file Sexual Orientation Not on file Plan of Treatment Health Maintenance Due Date Last Done Comments RSV Immunization ( o r 60+ Years) (1 - 1-dose 60+ series) 2005 Fall Risk Screening 2010 COVID-19 Vaccine ( season) 2022 Hepatitis C Screen Completed 02/22/2021 Procedures Procedure Name Priority Date/Time Associated Diagnosis Comments HEPATITIS C AB W REFLEX TO HCV RNA BY PCR Routine 02/22/2021 8:56 EDT from Last 3 Months or Most Recently Relevant to Health Maintenance Results * HEPATITIS C AB W REFLEX TO HCV RNA BY PCR (02/22/2021 8:56 EDT) Hep C Antibody Negative Negative 02/23/2021 14:09 EDT [facility] Blood VENOUS BLOOD / Unknown 02/22/2021 8:56 EDT 02/22/2021 15:56 EDT Provider Outr Resulting Lab CHEMISTRY & BLOOD GAS ORDERABLES [facility] [address] [place] [address] from Last 3 Months or Most Recently Relevant to Health Maintenance Care Teams Cemetery Manager Relationship Specialty Start Date End Date Tr Hendrix DO [address] [place] [address] PCP - General Family Medicine - Primary Care 02/13/20
--- OUTSIDE RECORDS SUMMARY | 2023-11-13 09:26 | XMS_ITS | Encounter Summary ---
Author Organization [facility] Address [address] [place] [address] Care Team Providers Care Art Gilder Name Role Phone Tr Hendrix DO Primary Care Provider [phone] Encounter Details Date Type Department Care Team (Late st Contact Info) Description 02/22/2021 Lab Requisition [facility] Pathology & Laboratory Medicine - [facility] [address] [place], [place] [address] Outr Resulting Lab, Provider Social History Tobacco Use Types Packs/Day Years Used Date Smoking Tobacco: Never Assessed Interpersonal Safety Answer Date Record ed Physically Hurt Never 02/20/2020 Verbally Threaten Not on file 02/20/2020 Sex and Gender Information Value Date Recorded Sex Assigned at Not on file Gender Identity Not on file Sexual Orientation Not on file documented as of this encounter Plan of Treatment Not on file documented as of this encounter Procedures Procedure Name Priority Date/Time Associated Diagnosis Comments HIV 1/2 ANTIGEN AND ANTIBODY, 4TH GENERATION Routine 02/22/2021 8:56 EDT documented in this encounter Results * HIV 1/2 ANTIGEN AND ANTIBODY, 4TH GENERATION (02/22/2021 8:56 EDT) HIV 1 and 2 Antibody/p24 Antigen, 4th Generation Negative Negative 02/23/2021 13:42 EDT [facility] Comment: If acute HIV-1 infection is suspected in a high risk ??patient, submit plasma specimen for HIV-1 RNA quantitation test. Fourth Generation assay performed on the Siemens archifyaur. Blood VENOUS BLOOD / Unknown 02/22/2021 8:56 EDT 02/22/2021 15:56 EDT Provider Outr Resulting Lab IMMUNOLOGY A ND SEROLOGY ORDERABLES [facility] [address] [place] [address] documented in this encounter Visit Diagnoses Not on filedocumented in this encounter Care Teams Art Gilder Relationship Specialty Start Date End Date Tr Hendrix DO [facility] [address] [address] PCP - General Family Medicine - Primary Care 02/13/20 documented as of this encounter
--- OUTSIDE RECORDS SUMMARY | 2023-11-13 09:26 | XMS_ITS | Encounter Summary ---
Author Organization [facility] Address [facility] [place] [address] Care Team Providers Care Assistant Technician Name Role Phone Tr Ribera MD Primary Care Provider [phone] Encounter Details Date Type Department Care Team (Late st Contact Info) Description 07/13/2010 3:30 PM EDT Office Visit [place] [address] Jenna Maya MD [facility] [place] [address] Discharge Disposition: Home Social History Tobacco Use Types Packs/Day Years Used Date Smoking Tobacco: Never Assessed Sex and Gender Information Value Date Recorded Sex Assigned at Not on file Gender Identity Not on file Sexual Orientation Not on file documented as of this encounter Plan of Treatment Upcoming Encounters Date Type Department Care Team (Late st Contact Info) Description 06/20/2024 10:00 AM EST Office Visit Dermatology at [place] [address] [place] [address] Mustapha Lemos MD [address] [facility] DERMATOLOGY [place], [place] [address] documented as of this encounter Visit Diagnoses Not on filedocumented in this encounter Care Teams Assistant Technician Relationship Specialty Start Date End Date Tr Ribera MD [address] [place] [address] PCP - General 03/22/10 05/23/17 documented as of this encounter
--- OUTSIDE RECORDS SUMMARY | 2023-11-13 09:26 | XMS_ITS | Encounter Summary ---
Author Organization [facility] Address [facility] [place] [address] Care Team Providers Care Fast Brim Pouncer Name Role Phone Tr Ribera MD Primary Care Provider [phone] Reason for Visit * Reason Onset Date Comments Results 10/25/2010 Encounter Details Date Type Department Care Team (Late Contact Info) Description 10/25/2010 Telephone Hematology [place] [address] Benton Foley MD [facility] [address] HEMATOLOGY/[place] [address] Results Social History Tobacco Use Types Packs/Day Years Used Date Smoking Tobacco: Every Day Smokeless Tobacco: Never Comments:pack a day Sex and Gender Information Value Date Recorded Sex Assigned at Not on file Gender Identity Not on file Sexual Orientation Not on file documented as of this encounter Miscellaneous Notes * Telephone Encounter - Benton Foley MD - 10/25/2010 6:43 PM EDT I spoke with Mr. Constance amato to let him know the final results of his MRI - simple hepatic cyst. I will send a copy of the report to him. documented in this encounter Plan of Treatment Upcoming Encounters Date Type Department Care Team (Late st Contact Info) Description 06/20/2024 10:00 AM EST Office Visit Dermatology at [place] [address] [place] [address] Mustapha Lemos MD [address] [place] [address] documented as of this encounter Visit Diagnoses Not on filedocumented in this encounter Care Teams Fast Brim Pouncer Relationship Specialty Start Date End Date Tr Ribera MD [address] [place] [address] PCP - General 03/22/10 05/23/17 documented as of this encounter
--- OUTSIDE RECORDS SUMMARY | 2023-11-13 09:26 | XMS_ITS | Encounter Summary ---
Author Organization [facility] [place] [address] Care Team Providers Care Rehabilitation Director Name Role Phone Tr Ribera MD Primary Care Provider [phone] [phone] Encounter Details Date Type Department Care Team (Late st Contact Info) Description 10/18/2010 Orders Only [place] [address] Marta Rojo MD [facility] [place] [address] Social History Tobacco Use Types Packs/Day Years Used Date Smoking Tobacco: Never Assessed Sex and Gender Information Value Date Recorded Sex Assigned at Not on file Gender Identity Not on file Sexual Orientation Not on file documented as of this encounter Progress Notes * Marta Rojo MD - 10/18/2010 11:52 AM EDT Interventional Radiology - Pre-Procedure Note CT guided liver biopsy HPI: 65 y.o. Male referred from Dr Ribera for liver biopsy. He has a history of smoking and of melanoma. On an US from OSH, he was found to have an atypical liver lesion in the left lobe; hypoechoic with septations, increased acoustic enhancement however internal vascularity on doppler. A multiphaseCT performed showed an aytpical lesion; measuring fluid on HU, and without enchancement. Lesion margins are somewhat irregular; not as well defined as a typical cyst or hemangioma. The US and CT findings are somewhat discordant, and the lesion is indeterminate. I do not believe that MRI will definitively characterize the lesion. He has no old studies. Per report he is anxious that this is a metast asis and would like to proceed with biopsy. PCP: TR RIBERA MD Referring Physician (if Different): Dr Foley [facility] Review of Systems: Review of Systems Past Medical and Surgical History: Prior To Admission Medications: Trying to obtain Allergies: Allergies no known allergies Physical Exam: Pending arrival Laboratory (Last 24 Hours): PLT-232 PT 9.9 INR 1.0 PTT 25 (OSH) Medications to discontinue for procedure: will have nursing try to obtain his medication list Prophylactic antibiotic: none Planned access site / position: supine left lobe lesion. May only obtain fluid- if so send for cytology. MARTA ROJO 10/18/2010 documented in this encounter Plan of Treatment Upcoming Encounters Date Type Department Care Team (Late st Contact Info) Description 06/20/2024 10:00 AM EST Office Visit Dermatology at [address] [address] Mustapha Lemos MD [address] [facility] [place] [address] documented as of this encounter Visit Diagnoses Not on filedocumented in this encounter Care Teams Rehabilitation Director Relationship Specialty Start Date End Date Tr Rbiera MD [address] [place] [address] PCP - General 03/22/10 05/23/17 documented as of this encounter
--- OUTSIDE RECORDS SUMMARY | 2023-11-13 09:26 | XMS_ITS | Encounter Summary ---
[place] [address] Care Team Providers Care Coating And Baking Operator Name Role Phone Tr Ribera MD Primary Care Provider [phone] Encounter Details Date Type Department Care Team (Late st Contact Info) Description 10/19/2010 9:15 AM EDT - 10/19/2010 10:59 AM EDT Hospital [place] [address] Melanoma Social History Tobacco Use Types Packs/Day Years Used Date Smoking Tobacco: Every Day Smokeless Tobacco: Never Comments:pack a day Sex and Gender Information Value Date Recorded Sex Assigned at Not on file Gender Identity Not on file Sexual Orientation Not on file documented as of this encounter Last Filed Vital Signs Vital Sign Reading Time Taken Comments Blood Pressure - - Pulse - - Temperature - - Respiratory Rate - - Oxygen Saturation - - Inhaled Oxygen Concentration - - Weight 106.6 kg (235 lb) 10/19/2010 9:52 AM EDT Height - - Body Mass Index 34.69 07/13/2010 1:05 PM EDT documented in this encounter Medications at Time [...] 10:00 AM EST Office Visit Dermatology at [place] [address] [place] [address] Mustapha Lemos MD [address] [place] [address] documented as of this encounter Procedures Procedure Name Priority Date/Time Associated Diagnosis Comments MRI ABDOMEN WWO CONTRAST Routine 10/19/2010 11:05 AM EDT Melanoma of skin, site unspecified documented in this encounter Results * MRI ABDOMEN WITH/WO CONTRAST (10/19/2010 11:05 AM EDT) Anatomical Region Laterality Modality Abdomen Magnetic Resonan ce 10/19/2010 11:0 5 AM EDT Impressions 10/21/2010 9:17 AM EDT IMPRESSION: ?? 1. ??Left lobe of liver lesion seen on outside study, corresponds to a simple cyst. ?? 2. ??Approximate 8 mm right lobe liver hemangioma. ?? 3. ??No evidence of hepatic metastasis. ?? Narrative 10/21/2010 9:17 AM EDT MRI OF THE ABDOMEN WITH AND WITHOUT CONTRAST: ?? CLINICAL: ??Lesion seen in liver on outside CT and ultrasound, evaluate in patient with history of melanoma. ?? TECHNICAL FACTORS: ??Multiplanar pre- and post intravenously enhanced, T1-weighted gradient images with fat saturation. ??Multiple postcontrast time points obtained. ??20 mL of Magnevist utilized for IV contrast. ??Multiplanar T2-weighted images with and without fat saturation. ?? FINDINGS: ??The T2-weighted images demonstrate a well-delineated, approximate 3.1 x 2.5 cm high signal focus seen within the left lobe of the liver, corresponding to the finding on the recent CT and ultrasound. ??In addition, there is a smaller, approximate 9 mm high signal focus seen on the T2-weighted images in the medial aspect of the right lobe of the liver. ?? At the multiple postcontrast T1-weighted gradient time points, no enhancement is seen in the left hepatic lobe focus, indicating that this is a fluid collection, compatible with a cyst. ??The smaller right lobe focus exhibits enhancement on the dynamic arterial phase images initially, and can be seen as a persistent area of enhancement all the way out to 8 minutes, indicating that this is a hemangioma. ??No evidence for hepatic mass lesions to suggest metastasis. ?? No biliary ductal dilatation or perihepatic fluid. ?? The spleen, gallbladder, and pancreas are unremarkable. ??The adrenal glands are normal. ??The visualized aspects of the kidneys are unremarkable. Procedure Note Choco Walton MD - 10/21/2010 MRI OF THE ABDOMEN WITH AND WITHOUT CONTRAST: CLINICAL: Lesion seen in liver on outside CT and ultrasound, evaluate in patient with history of melanoma. TECHNICAL FACTORS: Multiplanar pre- and post intravenously enhanced, T1-weighted gradient images with fat saturation. Multiple postcontrasttime points obtained. 20 mL of Magnevist utilized for IV contrast.Multiplanar T2-weighted images with and without fat saturation. FINDINGS: The T2-weighted images demonstrate a well-delineated,approximate 3.1 x 2.5 cm high signal focus seen within the left lobe of the liver, corresponding to the finding on the recent CT and ultrasound. Inaddition, there is a smaller, approximate 9 mm high signal focus seen on theT2-weighted images in the medial aspect of the right lobe of the liver. At the multiple postcontrast T1-weighted gradient time points, noenhancement is seen in the left hepatic lobe focus, indicating that this is a fluid collection, compatible with a cyst. The smaller right lobe focus exhibits enhancement on the dynamic arterial phase images initially, and can beseen as a persistent area of enhancement all the way out to 8 minutes, indicatingthat this is a hemangioma. No evidence for hepatic mass lesions to suggest metastasis. No biliary ductal dilatation or perihepatic fluid. The spleen, gallbladder, and pancreas are unremarkable. The adrenalglands are normal. The visualized aspects of the kidneys are unremarkable. IMPRESSION IMPRESSION: 1. Left lobe of liver lesion seen on outside study, corresponds to asimple cyst. 2. Approximate 8 mm right lobe liver hemangioma. 3. No evidence of hepatic metastasis. Benton Foley MD [facility] documented in this encounter Visit Diagnoses Diagnosis Melanoma Melanoma of skin, site unspecified documented in this encounter Administered Medications Inactive Administered Medications - up to 3 most recent administrations Medication Order MAR Action Action Date Dose Rate Site gadopentetate dimeglumine (MAGNEVIST) 10 mmol/20 mL (469.01 mg/mL) injection 21.32 mL 21.32 mL (0.2 mL/kg/dose ? 106.6 kg), Intravenous, ONCE PRN, 1 dose, Starting on Sun10/19/10 at 0952, Until Sun10/19/10 at 1059, Per Protocol, Routine Given 10/19/2010 10:59 AM EDT 20 mLs documented in this encounter Care Teams Coating And Baking Operator Relationship Specialty Start Date End Date Tr Ribera MD [address] [facility] [place] [address] PCP - General 03/22/10 05/23/17 documented as of this encounter
--- OUTSIDE RECORDS SUMMARY | 2023-11-13 09:26 | XMS_ITS | Encounter Summary ---
Author Organization [facility] Address [address] [place] [address] Care Team Providers Care Flour Blender Name Role Phone Tr Hendrix DO Primary Care Provider [phone] Encounter Details Date Type Department Care Team (Late st Contact Info) Description 02/22/2021 Lab Requisition [facility] Pathology & Laboratory Medicine - [facility] [address], [place] [address] Outr Resulting Lab, Provider Social History Tobacco [...] RNA BY PCR Routine 02/22/2021 8:56 EDT documented in this encounter Results * HEPATITIS C AB W REFLEX TO HCV RNA BY PCR (02/22/2021 8:56 EDT) Hep C Antibody Negative Negative 02/23/2021 14:09 EDT [facility] Blood VENOUS BLOOD / Unknown 02/22/2021 8:56 EDT 02/22/2021 15:56 EDT Provider Outr Resulting Lab CHEMISTRY & BLOOD GAS ORDERABLES [facility] [address] [place] [address] documented in this encounter Visit Diagnoses Not on filedocumented in this encounter Care Teams Flour Blender Relationship Specialty Start Date End Date Tr Hendrix DO [address] [place] [address] PCP - General Family Medicine - Primary Care 02/13/20 documented as of this encounter
--- OUTSIDE RECORDS SUMMARY | 2023-11-13 09:26 | XMS_ITS | Encounter Summary ---
[place] [address] Care Team Providers Care Camera Tuning Engineer Name Role Phone Tr Ribera MD Primary Care Provider [phone] Encounter Details Date Type Department Care Team (Late Contact Info) Description 05/18/2010 [place] [address] Mustapha Smith MD [address] [place] [address] Social History Tobacco Use Types Packs/Day Years Used Date Smoking Tobacco: Never Assessed Sex and Gender Information Value Date Recorded Sex Assigned at Not on file Gender Identity Not on file Sexual Orientation Not on file documented as of this encounter Plan of Treatment Upcoming Encounters Date Type Department Care Team (Late Contact Info) Description 06/20/2024 10:00 AM EST Office Visit Dermatology at [place] [address] [place] [address] Mustapha Smith MD [address] [place] [address] documented as of this encounter Procedures Procedure Name Priority Date/Time Associated Diagnosis Comments SURGICAL PATHOLOGY REPORT Routine 05/18/2010 7:09 PM EST documented in this encounter Results * PATHOLOGY SURGICAL PATHOLOGY FINAL REPORT (05/18/2010 7:09 PM EST) Surgical Pathology Report ? [facility] ? Provider: ?? MUSTAPHA SMITH ?? Pt. Name: ?? STORM OLIVARES ? Acc #: ?[id number] ? Pt. ? Col Date: ?? 05/18/2010 ? /Sex: ?1945,(65 years),Male ? Rec Date: ?? 05/19/2010 ? LOC: ?[facility] ? SURGICAL PATHOLOGY ? ---Pathologic Diagnosis--- ? Specimen: ? Skin of left mid back, shave biopsy ? Histologic Type: ?Malignant melanoma ? Ulceration: ? Absent ? Depth of Invasion: ?0.98 mm ? Bryant's Level: ?III/early IV ? Regression: ? Present ? Vascular Invasion: ?Not identified. ? Perineural Invasion: ?Not identified. ? Microscopic Satellites: Cannot assess ? Dermal mitoses per mm2: 2 ? Tumor infiltrating ? lymphocytes: ?Brisk ? Solar Elastosis: ?Absent ? Associated Nevus: ? Not identified. ? Margins: ? Peripheral Margins: ? In situ melanoma 0.6 mm from peripheral margin. ? Deep Margin: ?Melanoma extends along follicle to the deep margin. ? Pathologic TNM Codes: ?? pT1b pNx pMx ? See comment. ? CR-0 ? Dictated by: ? Shiva Devine MD ?Dermatopathology Fellow ? As the attending physician, I attest that I examined the histologic slides, ? and confirm Dr. Shiva Devine's diagnosis. ? 05/20/10 ? [facility] ? 05/23/10 Verified by: ? Alayna STOREY, Veronica Angelo ? Dermatopathologist ? (Electronic Signature) ? The attending pathologist whose signature appears on this report has ? reviewed all diagnostic slides and has edited the gross and/or ? microscopic portion of the report in rendering the final pathologic ? diagnosis. ? ---Comment--- ? Multiple deeper levels have been examined. Drs. Claude, Vickey, and Marry ? concur. Multiple deeper levels have been examined. ? [facility] ? Provider: ?? MUSTAPHA SMITH ?? Pt. Name: ?? STORM OLIVARES ? Acc #: ?[id number] ? Pt. ? Col Date: ?? 05/18/2010 ? /Sex: ?1945,(65 years),Male ? Rec Date: ?? 05/19/2010 ? LOC: ?[facility] ? SURGICAL PATHOLOGY ? ---Microscopic Description--- ? Slides reviewed, microscopic description not recorded. ? ---Gross Description--- ? Labeled/Fixative: ? L mid back, formalin. ? Qty/Size/Weight: ?Single shave, 1.0 cm, with an ill-defined, slightly ? raised, flores-brown macule, up to 0.9 x 0.5 cm in ? greatest dimension. ? Sections/Processing: ??Inked. ??Serially cross sectioned. ??(T1) aje/PPS ? ---Clinical Information--- ? Specimen Submitted: ? A - (L) mid back, shave ? Clinical History: ? Atypical ovoid pigmented lesion 1 cm x 5 mm, positive family HX of melanoma ? Clinical Diagnosis: ? Isaias k vs atypical nevus R/O MM ? Report to: ? Mustapha Smith MD, III ? [facility] ? Dermatology ? [place], [place] ??[address] TAN KATZ 05/18/2010 7:09 PM EST Mustapha Smith MD PATHOLOGY/CYTOLOGY O RDERABLES Performing Organization Address City/State/[facility] Co de Phone Number TAN KATZ documented in this encounter Visit Diagnoses Not on filedocumented in this encounter Care Teams Camera Tuning Engineer Relationship Specialty Start Date End Date Tr Ribera MD [address] [place] [address] PCP - General 03/22/10 05/23/17 documented as of this encounter
--- OUTSIDE RECORDS SUMMARY | 2023-11-13 09:26 | XMS_ITS | Encounter Summary ---
[place] [address] Care Team Providers Care Culinary Instructor Name Role Phone Tr Ribera MD Primary Care Provider [phone] Encounter Details Date Type Department Care Team (Late st Contact Info) Description 06/21/2010 10:00 AM EST Clinical [place] [address] Social History Tobacco Use Types Packs/Day Years [...] 10:00 AM EST Office Visit Dermatology at [address] [place] [address] Mustapha Lemos MD [address] [place] [address] [place] [address] documented as of this encounter Visit Diagnoses Not on filedocumented in this encounter Care Teams Culinary Instructor Relationship Specialty Start Date End Date Tr Ribera MD [address] [place] [address] PCP - General 03/22/10 05/23/17 documented as of this encounter
--- OUTSIDE RECORDS SUMMARY | 2023-11-13 09:26 | XMS_ITS | Encounter Summary ---
[place] [address] Care Team Providers Care Networks Software Consultant Name Role Phone Tr Ribera MD Primary Care Provider [phone] Reason for Visit * Reason Onset Date Comments Questions 03/29/2011 Encounter Details Date Type Department Care Team (Late st Contact Info) Description 03/29/2011 Telephone Hematology [place] [address] Shanna Vidal ANALYTICS ASSOCIATE ROOM Questions Social History Tobacco Use Types Packs/Day Years Used Date Smoking Tobacco: Every Day Smokeless Tobacco: Never Comments:pack a day Sex and Gender Information Value Date Recorded Sex Assigned at Not on file Gender Identity Not on file Sexual Orientation Not on file documented as of this encounter Miscellaneous Notes * Telephone Encounter - Shanna Rubio RN - 03/29/2011 2:19 PM EST Message copied by SHANNA RUBIO on SunMar 29, 2011 2:19 PM ------ Message from: DENISHA REESE Created: SunMar 29, 2011 2:12 PM Regarding: CT scan questions Contact: Patient would like to know why he needs a ct scan on 04.26.11. He is confused about the reasoning to restage the disease. He asked to speak to someone who is able to give him more specific details. Please call patient at the number provided. ------ Plan: reviewed that he is seen every 6 months by oncology w/ a restaging CT as part of the recommended surveillance for his disease Pt in agreement with plan and knows to call clinic with any concerns and/or questions. documented in this encounter Plan of Treatment Upcoming Encounters Date Type Department Care Team (Late st Contact Info) Description 06/20/2024 10:00 AM EST Office Visit Dermatology at [place] [address] [place] [address] Mustapha Lemos MD [address] [facility] [place] [address] documented as of this encounter Visit Diagnoses Not on filedocumented in this encounter Care Teams Networks Software Consultant Relationship Specialty Start Date End Date Tr Ribera MD [address] [place] [address] PCP - General 03/22/10 05/23/17 documented as of this encounter
--- OUTSIDE RECORDS SUMMARY | 2023-11-13 09:26 | XMS_ITS | Referral Summary ---
Author Organization [facility] Address [address] [place] [address] Care Team Providers Care Community Service Director Name Role Phone Tr Hendrix DO Primary Care Provider [phone] Social History Tobacco Use Types Packs/Day Years Used Date Smoking Tobacco: Never Assessed Interpersonal Safety Answer Date Record ed Physically Hurt Never 02/20/2020 Verbally Threaten Not on file 02/20/2020 Sex and Gender Information Value Date Recorded Sex Assigned at Not on file Gender Identity Not on file Sexual Orientation Not on file Plan of Treatment Not on file Procedures Procedure Name Priority Date/Time Associated Diagnosis Comments HEPATITIS C AB W REFLEX TO HCV RNA BY PCR Routine 02/22/2021 8:56 EDT from Last 3 Months or Most Recently Relevant to Health Maintenance Results * HEPATITIS C AB W REFLEX TO HCV RNA BY PCR (02/22/2021 8:56 EDT) Hep C Antibody Negative Negative 02/23/2021 14:09 EDT [facility] Blood VENOUS BLOOD / Unknown 02/22/2021 8:56 EDT 02/22/2021 15:56 EDT Provider Outr Resulting Lab CHEMISTRY & BLOOD GAS ORDERABLES [facility] [address] [place] [address] from Last 3 Months or Most Recently Relevant to Health Maintenance Care Teams Community Service Director Relationship Specialty Start Date End Date Tr Hendrix DO [address] [place] [address] PCP - General Family Medicine - Primary Care 02/13/20
--- OUTSIDE RECORDS SUMMARY | 2023-11-13 09:26 | XMS_ITS | Encounter Summary ---
[place] [address] Care Team Providers Care Trimming Caser Name Role Phone Tr Ribera MD Primary Care Provider [phone] Encounter Details Date Type Department Care Team (Late st Contact Info) Description 10/18/2010 Abstract Hematology [place] [address] Ailyn Soto RN Melanoma; Hypertension Social History Tobacco Use Types Packs/Day Years [...] - Inhaled Oxygen Concentration - - Weight 108.3 kg (238 lb 12.1 oz) 07/13/2010 1:05 PM EDT Height 175.3 cm (5' 9.02) 07/13/2010 1:05 PM ED T Body Mass Index 35.24 07/13/2010 1:05 PM EDT documented in this encounter Plan of Treatment Upcoming Encounters Date Type Department Care Team (Late st Contact Info) Description 06/20/2024 10:00 AM EST Office Visit Dermatology at [place] [address] [place] [address] Mustapha Lemos MD [address] [facility] [place] [address] documented as of this encounter Visit Diagnoses Diagnosis Melanoma Melanoma of skin, site unspecified Hypertension Unspecified essential hypertension documented in this encounter Care Teams Trimming Caser Relationship Specialty Start Date End Date Tr Ribera MD [address] [place] [address] PCP - General 03/22/10 05/23/17 documented as of this encounter
--- OUTSIDE RECORDS SUMMARY | 2023-11-13 09:26 | XMS_ITS | Encounter Summary ---
Author Organization [facility] Address [address] [place] [address] Care Team Providers Care Car Framer Name Role Phone Tr Ribera MD Primary Care Provider Unav ailable Encounter Details Date Type Department Care Team (Late st Contact Info) Description 03/06/2012 Results Only [facility] [phone] Donavon Romero MD [address] [address] Social History Tobacco Use Types Packs/Day Years Used Date Smoking Tobacco: Never Assessed Sex and Gender Information Value Date Recorded Sex Assigned at Not on file Gender Identity Not on file Sexual Orientation Not on file documented as of this encounter Plan of Treatment Not on file documented as of this encounter Procedures Procedure Name Priority Date/Time Associated Diagnosis Comments CYTOPATHOLOGY Routine 03/06/2012 0:00 EST documented in this encounter Results * CYTOPATHOLOGY (03/06/2012 0:00 EST) Pathology Report: CYTOPATHOLOGY REPORT Reports generated via electronic interface contain original data; however they are lacking the format of the original report. Caution should be taken when reading/interpreting unformatted reports. Name: ? STORM NOLASCO ? Accession #: ? [id number] : ? 1945 (Age: 66) ??M ?Collect Date: ? 03/06/2012 Location: ? [facility] ? Receive Date: ? 03/07/2012 Provider: ? DONAVON ROMERO MD Copy to: ?TR RIBERA MD ? CYTOLOGIC DIAGNOSIS: ? Urine, voided, cytologic evaluation: 1. ?No malignant cells identified. 2. ? Rare degenerated ??urothelial cells. ??See comment. ? COMMENT: ? This case has been reviewed at the intradepartmental consultation conference. (Dr. Whittington)/[facility] Document reviewed and electronically signed by: ? SHARMILA GHOSH MD Report Date: ??03/07/2012 16:15 By the signature above, the attending physician certifies that he/she has personally conducted a gross and/or microscopic examination of the described specimens and rendered or confirmed the above diagnosis. Specimen Type: ? Urine, Voided Clinical History: ? Hematuria ? Gross Description: ? One vial of Cytolyt was received and processed by selective cellular enhancement technique. ? End of Report [facility] 03/06/2012 03/07/2012 8:3 7 EST Donavon Romero MD PATHOLOGY ORDERABLES [facility] [address] [place] [address] documented in this encounter Visit Diagnoses Not on filedocumented in this encounter Care Teams Car Framer Relationship Specialty Start Date End Date Tr Ribera MD PCP - General 03/10/09 02/12/20 documented as of this encounter
--- OUTSIDE RECORDS SUMMARY | 2023-11-13 09:26 | XMS_ITS | Encounter Summary ---
Author Organization [facility] Address [address] [place] [address] Care Team Providers Care Grades 7 And 8 Visiting Teacher Name Role Phone Unknown, Provider Primary Care Provider Encounter Details Date Type Department Care Team (Late st Contact Info) Description 03/08/2009 Orders Only [facility] Laboratory Services - [facility] [address] [place], [place] [address] Tyson Corona MD [address] [place] [address] Social History Tobacco Use Types Packs/Day Years Used Date Smoking Tobacco: Never Assessed Sex and Gender Information Value Date Recorded Sex Assigned at Not on file Gender Identity Not on file Sexual Orientation Not on file documented as of this encounter Plan of Treatment Not on file documented as of this encounter Procedures Procedure Name Priority Date/Time Associated Diagnosis Comments SURGICAL PATHOLOGY Routine 03/08/2009 0:00 EST documented in this encounter Results * SURGICAL PATHOLOGY (03/08/2009 0:00 EST) Pathology Report: SURGICAL PATHOLOGY REPORT ? Reports generated via electronic interface contain original data; ? however they are lacking the format of the original report. ? Caution should be taken when reading/interpreti ng unformatted reports. ? Name: ? STORM NOLASCO ? Accession #: ? [id number] ? : ? 1945 (Age: 63) ??M ? Collect Date: ? 03/08/2009 ? Location: ? [facility] ? Receive Date: ? 03/09/2009 ? Provider: TYSON CORONA MD ? Copy to: DIXON MORA MD ? Final Pathologic Diagnosis: ? Colon, cecum, biopsy: ? 1. ?Tubulovillous adenoma, fragments. ? - Negative for high-grade dysplasia. ? Document reviewed and electronically signed by: ? LOW CHERY MD ? Report ??Date: 03/11/2009 16:26 ? By the signature above, the attending physician certifies that he/she has ? personally conducted a gross and/or microscopic examination of the described ? specimens and rendered or confirmed the above diagnosis. ? Specimen(s) Received: ? Cecum polyp ? Clinical History: ? Screen ? Gross Description: ? Received in Hollande's solution labelled Storm Nolasco and casey ?? polyp is a 0.7 x 0.6 x 0.3 cm pink-flores, sessile, polypoid soft tissue as well ?? as four pink-flores irregular tissue fragments that range from 0.1 x 0.1 x 0.1 cm ?? to 0.5 x 0.3 x 0.1 cm. ??The resection margin of the polypoid tissue is inked ? blue. ??This tissue is bisected and entirely submitted as (A1) and the remaining tissue fragments are entirely submitted as (A2) and (A3). ??(Deepti Maria)/maikel ? End of Report ? [facility] 03/08/2009 03/09/2009 8:4 7 EST Tyson Corona MD PATHOLOGY ORDERABLE S Performing Organization Address City/State/[facility] Co de Phone Number [facility] [address] [place] [address] documented in this encounter Visit Diagnoses Not on filedocumented in this encounter Care Teams Grades 7 And 8 Visiting Teacher Relationship Specialty Start Date End Date Unknown, Provider, PCP - General 03/09/09 03/09/09 documented as of this encounter
--- OUTSIDE RECORDS SUMMARY | 2023-11-13 09:26 | XMS_ITS | Encounter Summary ---
Author Organization [facility] Address [facility] [place] [address] Care Team Providers Care Trash Collector Truck Driver Name Role Phone Tr Ribera MD Primary Care Provider [phone] Encounter Details Date Type Department Care Team (Late st Contact Info) Description 10/18/2010 Orders Only Hematology [place] [address] Benton Foley MD [facility] DR HEMATOLOGY/[place] [address] Melanoma (Primary Dx) Social History Tobacco Use [...] 10:00 AM EST Office Visit Dermatology at [place] [address] [facility] [place] [address] Mustapha Lemos MD [address] [facility] DERMAT[facility] [place], [place] [id number] documented as of this encounter Visit Diagnoses Diagnosis Melanoma- Primary Melanoma of skin, site unspecified documented in this encounter Care Teams Trash Collector Truck Driver Relationship Specialty Start Date End Date Tr Ribera MD [address] [place] [address] PCP - General 03/22/10 05/23/17 documented as of this encounter
--- OUTSIDE RECORDS SUMMARY | 2023-11-13 09:26 | XMS_ITS | Encounter Summary ---
Author Organization [facility] Address [facility] [place] [address] Care Team Providers Care Respiratory Technician Name Role Phone Tr Ribera MD Primary Care Provider [phone] Encounter Details Date Type Department Care Team (Late st Contact Info) Description 10/17/2010 Orders Only Hematology [place] [address] Benton Foley MD [facility] DR HEMATOLOGY/[place] [address] Melanoma (Primary Dx) Social History Tobacco Use [...] 10:00 AM EST Office Visit Dermatology at [place] [address] [facility] [place] [address] Mustapha Lemos MD [address] [facility] DERMAT[facility] [place], [place] [id number] documented as of this encounter Visit Diagnoses Diagnosis Melanoma- Primary Melanoma of skin, site unspecified documented in this encounter Care Teams Respiratory Technician Relationship Specialty Start Date End Date Tr Ribera MD [address] [place] [address] PCP - General 03/22/10 05/23/17 documented as of this encounter
--- OUTSIDE RECORDS SUMMARY | 2023-11-13 09:26 | XMS_ITS | Encounter Summary ---
Author Organization [facility] [place] [address] Care Team Providers Care Iuss Analyst Name Role Phone Tr Ribera MD Primary Care Provider [phone] Encounter Details Date Type Department Care Team (Late Contact Info) Description 11/01/2010 Orders Only Hematology [place] [address] Benton Foley MD [facility] DR HEMATOLOGY/[place] [address] Melanoma (Primary Dx) Social History Tobacco Use [...] 10:00 AM EST Office Visit Dermatology at [place] [address] [facility] [place] [address] Mustapha Lemos MD [address] [facility] DERMAT[facility] [place], [place] [id number] documented as of this encounter Results * LDH (04/27/2011 12:23 PM EST) [facility]DH Not Perf 110 - 220 unit/L CERNER MILLENNIUM Comment:Unable to quantitate due to sample hemolysis. Sample redraw suggested. Blood specimen (specimen) 04/27/2011 12:23 PM EST 04/27/2011 12:25 PM EST Benton Foley MD CHEMISTRY ORDERABLES CERNER MILLENNIUM * (ABNORMAL) Comprehensive metabolic panel [...] PM EST Benton Foley MD CHEMISTRY ORDERABLES [facility] * (ABNORMAL) CBC (with Diff) (04/27/2011 12:23 PM EST) WBC 9.4 4.0 - 10.0 x10(3)/mcL CERNER MILLENNIUM RBC 4.60(L) 4.63 - 6.08 x10(6)/mcL CERNER MILLENNIUM Hemoglobin 15.0 13.7 - 17.5 gm/dL CERNER MILLENNIUM Hematocrit 42.8 40.0 - 51.0 % CERNER MILLENNIUM MCV 93.0(H) 79.0 - 92.0 fL CERNER MILLENNIUM MCH 32.6(H) 25.6 - 32.2 pg TAN HYDEIUM MCHC 35.0 32.0 - 36.5 gm/dL TAN HYDEIUM Platelets 191 145 - 370 x10(3)/mcL TAN LIENNIUM RDWSD 44.4 35.0 - 46.0 fL TAN HYDEIUM RDWCV 13.0 10.9 - 14.4 % TAN HYDEIUM MPV 10.2 9.0 - 12.0 fL TAN HYDEIUM Blood specimen (specimen) 04/27/2011 12:23 PM EST 04/27/2011 12:26 PM EST Benton Foley MD HEMATOLOGY ORDERABLE S TAN KATZ documented in this encounter Visit Diagnoses Diagnosis Melanoma- Primary Melanoma of skin, site unspecified documented in this encounter Care Teams Iuss Analyst Relationship Specialty Start Date End Date Tr Ribera MD [address] [place] [address] PCP - General 03/22/10 05/23/17 documented as of this encounter
--- OUTSIDE RECORDS SUMMARY | 2023-11-13 09:26 | XMS_ITS | Encounter Summary ---
Author Organization [facility] Address [address] [place] [address] Care Team Providers Care Vocational Horticulture Instructor Name Role Phone Tr Ribera MD Primary Care Provider Unav ailable Encounter Details Date Type Department Care Team (Late st Contact Info) Description 07/09/2015 Results Only [facility] [phone] David Chawla, DO [address] [place] [address] Social History Tobacco Use Types Packs/Day Years Used Date Smoking Tobacco: Never Assessed Sex and Gender Information Value Date Recorded Sex Assigned at Not on file Gender Identity Not on file Sexual Orientation Not on file documented as of this encounter Plan of Treatment Not on file documented as of this encounter Procedures Procedure Name Priority Date/Time Associated Diagnosis Comments SURGICAL PATHOLOGY Routine 07/09/2015 6:05 EST documented in this encounter Results * SURGICAL PATHOLOGY (07/09/2015 6:05 EST) Pathology Report: SURGICAL PATHOLOGY REPORT Reports generated via electronic interface contain original data; however they are lacking the format of the original report. Caution should be taken when reading/interpret ing unformatted reports. Name: ? STORM NOLASCO ? Accession #: ? [id number] ? : ? 1945 (Age: 70) ??M ? Collect Date: ? 07/09/2015 ? Location: ? [facility] ? Receive Date: ? 07/10/2015 ? Provider: DAVID CHAWLA DO Copy to: TR RIBERA MD ? Final Pathologic Diagnosis: RECTUM, POLYPS, BIOPSY: - ??Sessile serrated adenomas. Document reviewed and electronically signed by: MICHAELA OATES MD Report ??Date: 07/12/2015 18:00 By the signature above, the attending physician certifies that he/she has personally conducted a gross and/or microscopic examination of the described specimens and rendered or confirmed the above diagnosis. Specimen(s) Received: Rectal polyps Clinical History: Hx colon polyps Gross Description: ? Received in formalin labelled with proper patient identification (initials M, S) and rectal polyps are three pink-flores tissues (0.2 x 0.2 x 0.2 cm to 0.7 x 0.2 x 0.2 cm). Entirely submitted in 1. Michaela Chaudhry 07/12/2015 9:36 AM End of Report [facility] 07/09/2015 6:05 EST 07/10/2015 6:05 EST David Chawla DO PATHOLOGY ORDERABLES [facility] [address] [place] [address] documented in this encounter Visit Diagnoses Not on filedocumented in this encounter Care Teams Vocational Horticulture Instructor Relationship Specialty Start Date End Date Tr Ribera MD PCP - General 03/10/09 02/12/20 documented as of this encounter
--- OUTSIDE RECORDS SUMMARY | 2023-11-13 09:26 | XMS_ITS | Encounter Summary ---
Author Organization [facility] Address [facility] [place] [address] Care Team Providers Care Broommaker Name Role Phone Tr Ribera MD Primary Care Provider [phone] Encounter Details Date Type Department Care Team (Late st Contact Info) Description 09/05/2010 Orders Only H[place]ology [place] [address] Marta Heath, RN [facility] DR HEMATOLOGY/[place] [address] Social History Tobacco Use Types Packs/Day Years [...] 10:00 AM EST Office Visit Dermatology at [place] [address] [facility] [place] [address] Mustapha Lemos MD [address] [facility] [place] [address] documented as of this encounter Procedures Procedure Name Priority Date/Time Associated Diagnosis Comments FILM LIBRARY STORAGE ONLY ULTRASOUND STUDY Routine 09/05/2010 9:51 AM EDT documented in this encounter Results * FILM LIBRARY- STORAGE ONLY ULTRASOUND STUDY (09/05/2010 9:51 AM EDT) 09/05/2010 9:51 AM EDT Narrative RAD - 09/02/2013 7:48 PM EDT This is a non-reportable exam. Procedure Note Kalia Alvarez - 09/02/2013 This is a non-reportable exam. Marta Heath RN IMG FILM LIBRARY ORD ERABLES [facility] [address] [place] [address] documented in this encounter Visit Diagnoses Not on filedocumented in this encounter Care Teams Broommaker Relationship Specialty Start Date End Date Tr Ribera MD [address] [place] [address] PCP - General 03/22/10 05/23/17 documented as of this encounter
--- OUTSIDE RECORDS SUMMARY | 2023-11-13 09:26 | XMS_ITS | Encounter Summary ---
Author Organization [facility] [place] [address] Care Team Providers Care Business Project Analyst Name Role Phone Tr Hendrix Kenya HARTMAN Primary Care Provider [phone] Encounter Details Date Type Department Care Team (Late st Contact Info) Description 06/24/2010 Orders [place] [address] Jenna Maya MD [facility] [place] [address] Social History Tobacco Use Types Packs/Day Years [...] 10:00 AM EST Office Visit Dermatology at [place] [address] [place] [address] Mustapha Lemos MD [address] [facility] [place] [address] documented as of this encounter Procedures Procedure Name Priority Date/Time Associated Diagnosis Comments SURGICAL PATHOLOGY REPORT Routine 06/24/2010 2:57 PM EST documented in this encounter Results * Surgical Pathology Report (06/24/2010 2:57 PM EST) Pathologist [facility] Surgical Pathology Report [id number] ? Location: [facility] The signing pathologist has (i) examined the relevant preparation(s) for the specimen(s) and (ii) rendered or confirmed the diagnosis(es). . ?Pathology Surgical Pathology Final Report Clinical Information Specimen Submitted: A - Excision atypical lesion central back, central back B - Right shoulder atypical nevus, right shoulder C - Left flank wide excision, left flank D - Left axillary sentinel nodes, left axilla Clinical History: Left flank lesion marked: ??Short stitch superior, long stitch lateral Clinical Diagnosis: Melanoma Gross Description A - Labeled/Fixative: Excision atypical lesion, central back; fresh. Qty/Size/Weight: ?Single, 2.5 x 0.8 x 0.8 cm. Tissue Description: ?? Ellipse of flores skin with a 0.3-cm, dark brown macule. Sections/Processing : ??The specimen is inked and serially sectioned. ??The ?ends are submitted in (1); the remainder of the ?specimen submitted in (2-4). ??(T4) B - Labeled/Fixative: Right shoulder atypical nevus, fresh. Qty/Size/Weight: ?Single, 3.5 x 1.3 x 0.8 cm. Tissue Description: ?? Ellipse of flores skin with a 0.6 x 0.4-cm, dark brown ?macule with irregular borders. Sections/Processing : ??The specimen is inked and serially sectioned. ??The ?ends are submitted in (1); the remainder of the ?specimen submitted in (2-6). ??(T6) C - Labeled/Fixative: Left flank wide excision, fresh. Qty/Size/Weight: ?Single, 7.7 x 2.7 x 1.8 cm. Tissue Description: ?? Ellipse of flores skin with a central, 1.2 x 0.6-cm, ?white, concave scar. ??The specimen is received oriented with a short suture at one side margin designating superior and a long suture at one end designating lateral. ??The superior half of the specimen is inked black and the inferior half is inked blue. Sections/Processing : ??(1) lateral end; (2-22) body from lateral to medial; ?(23) medial end. ?? (T23) D - Labeled/Fixative: Left axillary sentinel nodes, fresh. Qty/Size/Weight: ?Multiple, 3.0 x 3.0 x 2.0 cm. Tissue Description: ?? Aggregate of adipose tissue which contains four lymph ?nodes, ranging from 0.8 cm to 2.0 cm in greatest ?dimension. Sections/Processing : ??(1) two lymph nodes, one differentially inked and ?bisected; (2) one lymph node, bisected; (3-5) one ?lymph node, serially sectioned. ?? (R5) ??aje/SNS Microscopic Description Slides reviewed, microscopic description not recorded. Immunohistochemistr y Studies: Formalin-fixed, paraffin-embedded tissue sections are studied using the B-SA system technique with appropriate positive and negative controls. ?These IHC studies . Microscopic Description provide the pathologist with adjunctive diagnostic information. Antibody specificity has been verified by testing antibodies on a series of in-house tissues with known immunohistochemical performance characteristics. The clinical interpretation of any antibody positive staining or its absence is evaluated within the context of clinical presentation, morphology, ??histopathological criteria and other diagnostic tests. Block ? Antibody ?Result (Positive/Negative) D1,D2,D5 S100,HMB45,MART1 ? See Diagnosis ? on all three blocks Diagnosis A - Skin of central back, excision: ?1. Lentiginous junctional nevus with moderate atypia. Examined inked ? margins are free of lesion. ?2. Incidental seborrheic keratosis. B - Skin of right shoulder, excision: ?Melanoma in situ, extending to 2.31 mm from the nearest ?peripheral margin. C - Skin of left flank, wide excision: ?1. Scar consistent with prior procedure, no residual atypical ? melanocytic lesion identified. ?2. Incidental compound nevus (C6), not at a margin. D - Left axillary sentinel nodes, excision: ?No evidence of malignancy in four lymph nodes. ??All levels and ?immunohistochemic al stains for S-100, MART-1, and HMB-45 (performed ?on sections from blocks D1, D2, and D5) are negative for metastatic ?disease. CR-0 Dictated by: ? Bryan Arredondo MD ? Dermatopathology Fellow As the attending physician, I attest that I examined the histologic slides, and confirm Dr. Bryan Arredondo's diagnosis. 06/28/10 GLW 06/29/10 Verified by: ? Truong Arce MD ?Dermatopathologis t ?(Electronic Signature) The attending pathologist whose signature appears on this report has reviewed all diagnostic slides and has edited the gross and/or microscopic portion of the report in rendering the final pathologic diagnosis. [facility] 06/24/2010 2:57 PM EST Jenna Maya MD PATHOLOGY/CYTOLOGY ORDERABLES [facility] documented in this encounter Visit Diagnoses Not on filedocumented in this encounter Care Teams Business Project Analyst Relationship Specialty Start Date End Date Tr Hendrix DO [address] [place] [address] PCP - General Family Medicine 05/24/17 documented as of this encounter
--- OUTSIDE RECORDS SUMMARY | 2023-11-13 09:26 | XMS_ITS | Encounter Summary ---
Author Organization [facility] Address [address] [place] [address] Care Team Providers Care Molder Meat Name Role Phone Tr Ribera MD Primary Care Provider Unav ailable Encounter Details Date Type Department Care Team (Late st Contact Info) Description 06/03/2012 Results Only [facility] - [facility] ([facility] [address] [place], [place] [address] Tyson Corona MD [address] [place] [address] Social History Tobacco Use Types Packs/Day Years Used Date Smoking Tobacco: Never Assessed Sex and Gender Information Value Date Recorded Sex Assigned at Not on file Gender Identity Not on file Sexual Orientation Not on file documented as of this encounter Plan of Treatment Not on file documented as of this encounter Procedures Procedure Name Priority Date/Time Associated Diagnosis Comments SURGICAL PATHOLOGY Routine 06/03/2012 8:35 EST documented in this encounter Results * SURGICAL PATHOLOGY (06/03/2012 8:35 EST) Pathology Report: SURGICAL PATHOLOGY REPORT Reports generated via electronic interface contain original data; however they are lacking the format of the original report. Caution should be taken when reading/interpreti ng unformatted reports. Name: ? STORM NOLASCO ? Accession #: ? [id number] ? : ? 1945 (Age: 67) ??M ? Collect Date: ? 06/03/2012 ? Location: ? [facility] ? Receive Date: ? 06/04/2012 ? Provider: TYSON CORONA MD Copy to: TR RIBERA MD ? Final Pathologic Diagnosis: A. ?Rectum, polyps x3, biopsies: 1. ?Hyperplastic polyp (3 pieces); No adenoma. B. ?Colon, cecum, polyp, biopsy: 1. ?Tubulovillous adenoma (1 piece); No high grade dysplasia. Document reviewed and electronically signed by: Anna Anderson MD Report ??Date: 06/06/2012 13:22 By the signature above, the attending physician certifies that he/she has personally conducted a gross and/or microscopic examination of the described specimens and rendered or confirmed the above diagnosis. Specimen(s) Received: A. ?Rectal polyps x3 B. ? Cecal polyp Clinical History: ? Hx polyps Gross Description: ? Received in formalin labelled Storm Nolasco and #1 rectal polyps x3 are three flores-pink irregular soft tissue fragments ranging from 0.3 x 0.2 x 0.2 cm to 0.3 x 0.3 x 0.2 cm. ??The specimens are entirely submitted as (A1). Received in formalin labelled NolascoStorm mckenna and #2 cecal polyp is a flores-pink irregular soft tissue fragment measuring 0.3 x 0.3 x 0.2 cm. ??The specimen is entirely submitted as (B1). ??(Zenaida Lopez)/maikel End of Report [facility] 06/03/2012 8:35 EST 06/04/2012 8:35 EST Tyson Corona MD PATHOLOGY ORDERABLE S Performing Organization Address City/State/[facility] Co de Phone Number [place] [address] [address] documented in this encounter Visit Diagnoses Not on filedocumented in this encounter Care Teams Molder Meat Relationship Specialty Start Date End Date Tr Ribera MD PCP - General 03/10/09 02/12/20 documented as of this encounter
--- OUTSIDE RECORDS SUMMARY | 2023-11-13 09:26 | XMS_ITS | Encounter Summary ---
[place] [address] Care Team Providers Care High School Biology Teacher Name Role Phone Tr Hendrix DO Primary Care Provider [phone] Encounter Details Date Type Department Care Team (Late st Contact Info) Description 05/18/2010 Orders Only Dermatology at [address] [phone] Mustapha Lemos MD [address] [place] [address] [place] [address] Social History Tobacco Use Types Packs/Day Years [...] AM EST Office Visit Dermatology at [address] [phone] Mustapha Lemos MD [address] [place] [address] D[place]MATOLOGY [place], [place] [phone] documented as of this encounter Procedures Procedure Name Priority Date/Time Associated Diagnosis Comments SURGICAL PATHOLOGY REPORT Routine 05/18/2010 7:09 PM EST documented in this encounter Results * Surgical Pathology Report (05/18/2010 7:09 PM EST) Surgical Pathology Report [id number] ? Location: [facility] The signing pathologist has (i) examined the relevant preparation(s) for the specimen(s) and (ii) rendered or confirmed the diagnosis(es). . ?Pathology Surgical Pathology Final Report Clinical Information Specimen Submitted: A - (L) mid back, shave Clinical History: Atypical ovoid pigmented lesion 1 cm x 5 mm, positive family HX of melanoma Clinical Diagnosis: Isaias k vs atypical nevus R/O MM Report to: Mustapha Lemos MD, III [facility] [place]erm[place]ology [place], [place] ??[address] Gross Description Labeled/Fixative: ? L mid back, formalin. Qty/Size/Weight: ?Single shave, 1.0 cm, with an ill-defined, slightly ?raised, flores-brown macule, up to 0.9 x 0.5 cm in ?greatest dimension. Sections/Processing : ??Inked. ??Serially cross sectioned. ??(T1) aje/PPS Microscopic Description Slides reviewed, microscopic description not recorded. Diagnosis Specimen: ? Skin of left mid back, shave biopsy Histologic Type: ?Malignant melanoma Ulceration: ? Absent Depth of Invasion: ?0.98 mm Bryant's Level: ?III/early IV Regression: ? Present Vascular Invasion: ?Not identified. Perineural Invasion: ?Not identified. Microscopic Satellites: Cannot assess Dermal mitoses per mm2: 2 Tumor infiltrating ??lymphocytes: ?Brisk Solar Elastosis: ?Absent Associated Nevus: ? Not identified. Margins: Peripheral Margins: ? In situ melanoma 0.6 mm from peripheral margin. Deep Margin: ?Melanoma extends along follicle to the deep margin. Pathologic TNM Codes: ?? pT1b pNx pMx See comment. CR-0 Dictated by: ? Shiva Devine MD ? Dermatopathology Fellow . Diagnosis As the attending physician, I attest that I examined the histologic slides, and confirm Dr. Shiva Devine's diagnosis. 05/20/10 [facility] 05/23/10 Verified by: ? Veronica Catalan MD ?Dermatopathologis t ?(Electronic Signature) The attending pathologist whose signature appears on this report has reviewed all diagnostic slides and has edited the gross and/or microscopic portion of the report in rendering the final pathologic diagnosis. Comment Multiple deeper levels have been examined. Drs. Arce, Vickey, and Marry concur. ??Multiple deeper levels have been examined. TAN KATZ 05/18/2010 7:09 PM EST Mustapha Lemos MD PATHOLOGY/CYTOLOGY O RDERABLES Performing Organization Address City/State/[facility] Co de Phone Number TAN KATZ documented in this encounter Visit Diagnoses Not on filedocumented in this encounter Care Teams High School Biology Teacher Relationship Specialty Start Date End Date Tr Hendrix DO [address] [place] [address] PCP - General Family Medicine 05/24/17 documented as of this encounter
--- OUTSIDE RECORDS SUMMARY | 2023-11-13 09:26 | XMS_ITS | Encounter Summary ---
Author Organization [facility] Address [address] [place] [address] Care Team Providers Care Test Driver Name Role Phone Tr Hendrix DO Primary Care Provider [phone] Encounter Details Date Type Department Care Team (Late st Contact Info) Description 01/11/2023 Lab Requisition [facility] Pathology & Laboratory Medicine - [facility] [address] [place], [place] [id number] Outr Resulting Lab, Provider Social History Tobacco [...] Procedure Name Priority Date/Time Associated Diagnosis Comments PSA TOTAL, DIAGNOSTIC Routine 01/11/2023 14:10 EDT documented in this encounter Results * PSA TOTAL, DIAGNOSTIC (01/11/2023 14:10 EDT) PSA 2.0 <=6.5 ng/mL 01/11/2023 22:41 EDT [facility] Blood VENOUS BLOOD / Unknown 01/11/2023 14:10 EDT 01/11/2023 21:38 EDT Narrative [facility] - 01/11/2023 22:41 EDT NOTE: Serum PSA concentration should not be interpreted as absolute evidence for the presence or absence of malignant disease. Assayed on Siemens ADVIA Centaur XPT using chemiluminescent technology.??Values obtained by using different assay methods cannot be used interchangeably. Provider Outr Resulting Lab CHEMISTRY & BLOOD GAS ORDERABLES [facility] [address] [place] [address] documented in this encounter Visit Diagnoses Not on filedocumented in this encounter Care Teams Test Driver Relationship Specialty Start Date End Date Tr Hendrix DO [address] [place] [address] PCP - General Family Medicine - Primary Care 02/13/20 documented as of this encounter
--- OUTSIDE RECORDS SUMMARY | 2023-11-13 09:26 | XMS_ITS | Encounter Summary ---
Author Organization [facility] Address [facility] [place] [address] Care Team Providers Care Network/Telecom Engineer Name Role Phone Tr Ribera MD Primary Care Provider [phone] Encounter Details Date Type Department Care Team (Late st Contact Info) Description 09/30/2010 Orders Only Hematology [place] [address] Marta Heath, RN [facility] [address] HEMATOLOGY/[place] [address] Social History Tobacco Use Types Packs/Day Years [...] 10:00 AM EST Office Visit Dermatology at [place] [address] [facility] [place] [address] Mustapha Lemos MD [address] [facility] [place] [address] documented as of this encounter Procedures Procedure Name Priority Date/Time Associated Diagnosis Comments FILM LIBRARY STORAGE ONLY CT ABDOMEN Routine 09/30/2010 9:53 AM EDT documented in this encounter Results * FILM LIBRARY- STORAGE ONLY CT ABDOMEN (09/30/2010 9:53 AM EDT) 09/30/2010 9:53 AM EDT Narrative RAD - 09/02/2013 7:48 PM EDT This is a non-reportable exam. Procedure Note Kalia Alvarez - 09/02/2013 This is a non-reportable exam. Marta Heath RN IMG FILM LIBRARY ORD ERABLES [facility] [address] [place] [address] documented in this encounter Visit Diagnoses Not on filedocumented in this encounter Care Teams Network/Telecom Engineer Relationship Specialty Start Date End Date Tr Ribera MD [address] [place] [address] PCP - General 03/22/10 05/23/17 documented as of this encounter
--- OUTSIDE RECORDS SUMMARY | 2023-11-13 09:26 | XMS_ITS | Encounter Summary ---
[place] [address] Care Team Providers Care Fire Control Assistant Name Role Phone rT Ribera MD Primary Care Provider [phone] Encounter Details Date Type Department Care Team (Latest Contact Info) Description 06/24/2010 7:46 AM EST - 06/24/2010 4:00 PM EST Hospital Encounter [place] [address] Agatha Maya MD [facility] [place] [address] Discharge Disposition: Home Social History Tobacco Use [...] 10:00 AM EST Office Visit Dermatology at [place] [address] [facility] [place] [phone] Mustapha Lemos MD [address] [facility] [place] [address] documented as of this encounter Procedures Procedure Name Priority Date/Time Associated Diagnosis Comments SURGICAL PATHOLOGY REPORT Routine 06/24/2010 2:57 PM EST documented in this encounter Results * PATHOLOGY SURGICAL PATHOLOGY FINAL REPORT (06/24/2010 2:57 PM EST) Surgical Pathology Report ? [facility] ? Provider: ?? AGATHA MAYA ??Pt. Name: ?? NOLASCOSTORM ? Acc #: ?[id number] ? Pt. ? Col Date: ?? 06/24/2010 ? /Sex: ?1945,(65 years),Male ? Rec Date: ?? 06/24/2010 ? LOC: ?SDP ? SURGICAL PATHOLOGY ? ---Pathologic Diagnosis--- ? A - Skin of central back, excision: ? 1. Lentiginous junctional nevus with moderate atypia. Examined inked ?margins are free of lesion. ? 2. Incidental seborrheic keratosis. ? B - Skin of right shoulder, excision: ? Melanoma in situ, extending to 2.31 mm from the nearest ? peripheral margin. ? C - Skin of left flank, wide excision: ? 1. Scar consistent with prior procedure, no residual atypical ?melanocytic lesion identified. ? 2. Incidental compound nevus (C6), not at a margin. ? D - Left axillary sentinel nodes, excision: ? No evidence of malignancy in four lymph nodes. ??All levels and ? immunohistochemical stains for S-100, MART-1, and HMB-45 (performed ? on sections from blocks D1, D2, and D5) are negative for metastatic ? disease. ? CR-0 ? Dictated by: ? Bryan Arredondo MD ?Dermatopathology Fellow ? As the attending physician, I attest that I examined the histologic slides, ? and confirm Dr. Bryan Arredondo's diagnosis. ? 06/28/10 ? [facility] ? 06/29/10 Verified by: ? Truong Arce MD ? Dermatopathologist ? (Electronic Signature) ? The attending pathologist whose signature appears on this report has ? reviewed all diagnostic slides and has edited the gross and/or ? microscopic portion of the report in rendering the final pathologic ? diagnosis. ? ---Microscopic Description--- ? Slides reviewed, microscopic description not recorded. ? Immunohistochemistry Studies: ? [facility] ? Provider: ?? AGATHA MAYA ??Pt. Name: ?? STORM NOLASCO ? Acc #: ?[id number] ? Pt. ? Col Date: ?? 06/24/2010 ? /Sex: ?1945,(65 years),Male ? Rec Date: ?? 06/24/2010 ? LOC: ?SDP ? SURGICAL PATHOLOGY ? Formalin-fixed, paraffin-embedded tissue sections are studied using the B- ? SA system technique with appropriate positive and negative controls. ??These ? IHC studies provide the pathologist with adjunctive diagnostic information. ? Antibody specificity has been verified by testing antibodies on a series of ? in-house tissues with known immunohistochemical performance ? characteristics. The clinical interpretation of any antibody positive ? staining or its absence is evaluated within the context of clinical ? presentation, morphology, ??histopathological criteria and other diagnostic ? tests. ? Block ?Antibody ? Result (Positive/Negative) ? D1,D2,D5 S100,HMB45,MART1 ? See Diagnosis ?on all three blocks ? ---Gross Description--- ? A - Labeled/Fixative: Excision atypical lesion, central back; fresh. ? Qty/Size/Weight: ?Single, 2.5 x 0.8 x 0.8 cm. ? Tissue Description: ?? Ellipse of flores skin with a 0.3-cm, dark brown macule. ? Sections/Processing: ??The specimen is inked and serially sectioned. ??The ? ends are submitted in (1); the remainder of the ? specimen submitted in (2-4). ??(T4) ? B - Labeled/Fixative: Right shoulder atypical nevus, fresh. ? Qty/Size/Weight: ?Single, 3.5 x 1.3 x 0.8 cm. ? Tissue Description: ?? Ellipse of flores skin with a 0.6 x 0.4-cm, dark brown ? macule with irregular borders. ? Sections/Processing: ??The specimen is inked and serially sectioned. ??The ? ends are submitted in (1); the remainder of the ? specimen submitted in (2-6). ??(T6) ? C - Labeled/Fixative: Left flank wide excision, fresh. ? Qty/Size/Weight: ?Single, 7.7 x 2.7 x 1.8 cm. ? Tissue Description: ?? Ellipse of flores skin with a central, 1.2 x 0.6-cm, ? white, concave scar. ??The specimen is received ? oriented with a short suture at one side margin designating superior and ? a long suture at one end designating lateral. ??The superior half of the ? specimen is inked black and the inferior half is inked blue. ? Sections/Processing: ??(1) lateral end; (2-22) body from lateral to medial; ? (23) medial end. ?? (T23) ? D - Labeled/Fixative: Left axillary sentinel nodes, fresh. ? Qty/Size/Weight: ?Multiple, 3.0 x 3.0 x 2.0 cm. ? Tissue Description: ?? Aggregate of adipose tissue which contains four lymph ? nodes, ranging from 0.8 cm to 2.0 cm in greatest ? [facility] ? Provider: ?? AGATHA MAYA ??Pt. Name: ?? STORM NOLASCO ? Acc #: ?[id number] ? Pt. ? Col Date: ?? 06/24/2010 ? /Sex: ?1945,(65 years),Male ? Rec Date: ?? 06/24/2010 ? LOC: ?SDP ? SURGICAL PATHOLOGY ? dimension. ? Sections/Processing: ??(1) two lymph nodes, one differentially inked and ? bisected; (2) one lymph node, bisected; (3-5) one ? lymph node, serially sectioned. ?? (R5) ??aje/SNS ? ---Clinical Information--- ? Specimen Submitted: ? A - Excision atypical lesion central back, central back ? B - Right shoulder atypical nevus, right shoulder ? C - Left flank wide excision, left flank ? D - Left axillary sentinel nodes, left axilla ? Clinical History: ? Left flank lesion marked: ??Short stitch superior, long stitch lateral ? Clinical Diagnosis: ? Melanoma TAN KATZ 06/24/2010 2:57 PM EST Agatha Maya MD PATHOLOGY/CYTOLOGY ORDERABLES TAN KATZ documented in this encounter Visit Diagnoses Not on filedocumented in this encounter Active and Recently Administered Medications Care Teams Fire Control Assistant Relationship Specialty Start Date End Date Tr Ribera MD [address] [place] [address] PCP - General 03/22/10 05/23/17 documented as of this encounter
--- OUTSIDE RECORDS SUMMARY | 2023-11-13 09:26 | XMS_ITS | Encounter Summary ---
Author Organization [facility] Address [facility] [place] [address] Care Team Providers Care Dye Expert Name Role Phone Tr Ribera MD Primary Care Provider [phone] Encounter Details Date Type Department Care Team (Late st Contact Info) Description 06/15/2010 1:30 PM EST Office [place] [address] Jenna Maya MD [facility] [place] [address] Discharge Disposition: Home Social History Tobacco Use [...] 10:00 AM EST Office Visit Dermatology at [place] [address] [place] [address] Mustapha Lemos MD [address] [facility] [place] [address] documented as of this encounter Visit Diagnoses Not on filedocumented in this encounter Care Teams Dye Expert Relationship Specialty Start Date End Date Tr Ribera MD [address] [place] [address] PCP - General 03/22/10 05/23/17 documented as of this encounter
--- OUTSIDE RECORDS SUMMARY | 2023-11-13 09:26 | XMS_ITS | Encounter Summary ---
Author Organization [facility] Address [address] [place] [address] Care Team Providers Care Park Landscape Architect Name Role Phone Tr Hendrix DO Primary Care Provider [phone] Encounter Details Date Type Department Care Team (Late st Contact Info) Description 02/13/2020 Lab Requisition [facility] Pathology & Laboratory Medicine - [address] [address] Peri Parra MD [address] [place] [phone] Encounter for other general examination Social History Tobacco Use Types Packs/Day Years Used Date Smoking Tobacco: Never Assessed Sex and Gender Information Value Date Recorded Sex Assigned at Not on file Gender Identity Not on file Sexual Orientation Not on file documented as of this encounter Plan of Treatment Not on file documented as of this encounter Procedures Procedure Name Priority Date/Time Associated Diagnosis Comments SURGICAL PATHOLOGY Today 02/13/2020 10 :15 EDT Encounter for other general examination documented in this encounter Results * SURGICAL PATHOLOGY (02/13/2020 10:15 EDT) Final Diagnosis A. COLON, RANDOM BIOPSIES: - Colonic mucosa with no significant diagnostic abnormality. B. RECTUM, POLYP, BIOPSY: - Hyperplastic polyp. 02/17/2020 14:[address] [facility] Attestation By the signature below, the attending physician certifies that they have 1) personally conducted a gross and/or microscopic examination of the described specimen(s), and/or personally interpreted the results of laboratory testing of the described specimen(s), and 2) personally rendered or confirmed the above diagnosis. 02/17/2020 14:29 [facility] at 1429 Clinical History History of colon polyps 02/17/2020 14:29 [facility] Gross Description A. Received in formalin labelled with proper patient identification (initials M, S) and random colon bxs are 14 flores-brown tissues (0.4 x 0.3 x 0.1 cm to 0.2 x 0.1 x 0.1 cm). Submitted entirely in A1 to A5. B. Received in formalin labelled with proper patient identification (initials M, S) and rectal polyp is a single flores-pink polypoid tissue (0.4 x 0.2 x 0.2 cm). Submitted intact in B1. NIHARIKA LEON([facility]) 17:54 02/17/2020 14:[address] [facility] Performing Lab [facility] 02/17/2020 14:29 [facility] Scanned Images 02/17/2020 14:29 [facility] Tissue SPECIMEN FROM RECTUM / Unknown 02/13/2020 10:15 EDT 02/13/2020 16:35 EDT Tissue specimen (specimen) SPECIMEN FROM RECTUM / Unknown 02/13/2020 10:15 EDT 02/13/2020 16:36 EDT Peri Parra MD PATHOLOGY ORDERABLES Performing Organization Address City/State/[facility] Co de Phone Number [facility] [address] [place] [address] documented in this encounter Visit Diagnoses Diagnosis Encounter for other general examination documented in this encounter Care Teams Park Landscape Architect Relationship Specialty Start Date End Date Tr Hendrix DO [address] [place] [phone] PCP - General Family Medicine - Primary Care 02/13/20 documented as of this encounter
--- OUTSIDE RECORDS SUMMARY | 2023-11-13 09:26 | XMS_ITS | Encounter Summary ---
Author Organization [facility] Address [address] [place] [address] Care Team Providers Care Wares Sorter Name Role Phone Tr Ribera MD Primary Care Provider Unav ailable Encounter Details Date Type Department Care Team (Latest Contact Info) Description 07/09/2015 15:47 EST - 07/09/2015 23:59 EST Hospital Encounter [address] [address] Unknown, Provider, Discharge Disposition: Home or Self Care Social History Tobacco Use Types Packs/Day Years Used Date Smoking Tobacco: Never Assessed Sex and Gender Information Value Date Recorded Sex Assigned at Not on file Gender Identity Not on file Sexual Orientation Not on file documented as of this encounter Discharge Disposition Disposition Code Departure Means Destination Home or Self Snf documented in this encounter Plan of Treatment Not on file documented as of this encounter Visit Diagnoses Not on filedocumented in this encounter Care Teams Wares Sorter Relationship Specialty Start Date End Date Tr Ribera MD PCP - General 03/10/09 02/12/20 documented as of this encounter
--- OUTSIDE RECORDS SUMMARY | 2023-11-13 09:26 | XMS_ITS | Encounter Summary ---
Author Organization [facility] Address [facility] [place] [address] Care Team Providers Care Mounter Clarinets Name Role Phone Tr Ribera MD Primary Care Provider [phone] Encounter Details Date Type Department Care Team (Latest Contact Info) Description 07/13/2010 2:17 PM EDT - 07/13/2010 11:59 PM EDT Hospital Encounter Hematology [place] [address] Benton Foley MD [facility] HEMATOLOGY/[place] [address] Discharge Disposition: Home Social History Tobacco Use Types Packs/Day Years Used Date Smoking Tobacco: Never Assessed Sex and Gender Information Value Date Recorded Sex Assigned at Not on file Gender Identity Not on file Sexual Orientation Not on file documented as of this encounter Medications at Time of Discharge Medication Sig Dispensed Refills Start Date End Date GLUCOSAMINE HCL/CHONDRO OKEEFE A (GLUCOSAMINE-CHONDROITIN ORAL) 07/13/2010 12/15/2016 documented as of this encounter Plan of Treatment Upcoming Encounters Date Type Department Care Team (Late st Contact Info) Description 06/20/2024 10:00 AM EST Office Visit Dermatology at [place] [address] [place] [phone] Mustapha Lemos MD [address] [facility] [place] [address] documented as of this encounter Visit Diagnoses Not on filedocumented in this encounter Care Teams Mounter Clarinets Relationship Specialty Start Date End Date Tr Ribera MD [address] [place] [address] PCP - General 03/22/10 05/23/17 documented as of this encounter
--- OUTSIDE RECORDS SUMMARY | 2023-11-13 09:26 | XMS_ITS | Encounter Summary ---
Author Organization [facility] Address [facility] [address] Care Team Providers Care Project Engineer Name Role Phone Tr Ribera MD Primary Care Provider [phone] Encounter Details Date Type Department Care Team (Latest Contact Info) Description 06/15/2010 7:48 AM EST - 06/15/2010 11:59 PM EST Hospital Encounter Hematology [place] [address] Benton Foley MD [facility] HEMATOLOGY/[place] [address] Discharge Disposition: Home Social History Tobacco Use [...] 10:00 AM EST Office Visit Dermatology at [place] [address] [facility] [place] [phone] Mustapha Lemos MD [address] [facility] [place] [place] [address] documented as of this encounter Visit Diagnoses Not on filedocumented in this encounter Care Teams Project Engineer Relationship Specialty Start Date End Date Tr Ribera MD [address] [place] [address] PCP - General 03/22/10 05/23/17 documented as of this encounter
--- OUTSIDE RECORDS SUMMARY | 2023-11-13 09:26 | XMS_ITS | Encounter Summary ---
Author Organization [facility] Address [address] [place] [address] Care Team Providers Care Agent Name Role Phone Tr Hendrix DO Primary Care Provider [phone] Encounter Details Date Type Department Care Team (Late st Contact Info) Description 12/14/[address] [facility] Pathology & Laboratory Medicine - [facility] [address] [place], [place] [address] Outr Resulting Lab, Provider Social History Tobacco [...] Associated Diagnosis Comments PSA TOTAL, DIAGNOSTIC Routine 12/14/2022 10:01 EDT documented in this encounter Results * PSA TOTAL, DIAGNOSTIC (12/14/2022 10:01 EDT) PSA 2.2 <=6.5 ng/mL 12/14/2022 18:52 EDT [facility] Blood VENOUS BLOOD / Unknown 12/14/2022 10:01 EDT 12/14/2022 18:05 EDT Narrative [facility] - 12/14/2022 18:52 EDT NOTE: Serum PSA concentration should not be interpreted as absolute evidence for the presence or absence of malignant disease. Assayed on Siemens ADVIA Centaur XPT using chemiluminescent technology.??Values obtained by using different assay methods cannot be used interchangeably. Provider Outr Resulting Lab CHEMISTRY & BLOOD GAS ORDERABLES [facility] [address] [place] [address] documented in this encounter Visit Diagnoses Not on filedocumented in this encounter Care Teams Agent Relationship Specialty Start Date End Date Tr Hendrix DO [address] [place] [address] PCP - General Family Medicine - Primary Care 02/13/20 documented as of this encounter
--- OUTSIDE RECORDS SUMMARY | 2023-11-13 09:26 | XMS_ITS | Encounter Summary ---
Author Organization [facility] Address [facility] [place] [address] Care Team Providers Care Automation And Control Engineer Name Role Phone Tr Ribera MD Primary Care Provider [phone] Encounter Details Date Type Department Care Team (Late st Contact Info) Description 10/18/2010 Telephone Hematology [place] [phone] Marta Heath, RN [facility] DR HEMATOLOGY/[place] [address] Social History Tobacco Use Types Packs/Day Years Used Date Smoking Tobacco: Never Assessed Sex and Gender Information Value Date Recorded Sex Assigned at Not on file Gender Identity Not on file Sexual Orientation Not on file documented as of this encounter Miscellaneous Notes * Telephone Encounter - Marta Heath APRN - 10/18/2010 4:14 PM EDT I spoke with Marta Rojo, Radiologist regarding this patient with melanoma. There is a question of a liver lesion on outside imaging which has mostly the characteristics of a cyst. In lieu of a CT guided biopsy we will obtain an MRI of the liver tomorrow to rule out metastatic disease. I spoke with the patient's spouse and he will come to 3W at 0930 am for the MRI, then come to for his visit. documented in this encounter Plan of Treatment Upcoming Encounters Date Type Department Care Team (Late st Contact Info) Description 06/20/2024 10:00 AM EST Office Visit Dermatology at [place] [address] [place] [address] Mustapha Lemos MD [address] [facility] [place] [address] documented as of this encounter Visit Diagnoses Not on filedocumented in this encounter Care Teams Automation And Control Engineer Relationship Specialty Start Date End Date Tr Ribera MD [address] [place] [address] PCP - General 03/22/10 05/23/17 documented as of this encounter
--- OUTSIDE RECORDS SUMMARY | 2023-11-13 09:26 | XMS_ITS | Encounter Summary ---
Author Organization [facility] Address [facility] [address] Care Team Providers Care Manufacturing Engineering Intern Name Role Phone Tr Ribera MD Primary Care Provider [phone] Encounter Details Date Type Department Care Team (Latest Contact Info) Description 06/21/2010 10:15 AM EST - 06/21/2010 11:59 PM EST Hospital Encounter [place] [address] Jenna Maya MD [facility] [place] [address] Discharge Disposition: Home Social History Tobacco Use [...] 10:00 AM EST Office Visit Dermatology at [place] [address] [facility] [place] [phone] Mustapha Lemos MD [address] [facility] DERMATOLOGY [place], [place] [id number] documented as of this encounter Visit Diagnoses Not on filedocumented in this encounter Care Teams Manufacturing Engineering Intern Relationship Specialty Start Date End Date Tr Ribera MD [address] [place] [address] PCP - General 03/22/10 05/23/17 documented as of this encounter
--- OUTSIDE RECORDS SUMMARY | 2023-11-13 09:26 | XMS_ITS | Encounter Summary ---
Author Organization [facility] Address [facility] [place] [address] Care Team Providers Care Cash Register Mechanic Name Role Phone Tr Ribera MD Primary Care Provider [phone] Reason for Visit * Reason Comments Follow-up Encounter Details Date Type Department Care Team (Latest Contact Info) Description 10/19/2010 11:20 AM EDT - 10/19/2010 11:59 PM EDT Hospital Encounter Hematology [place] [address] Marta Heath, RN [facility] HEMATOLOGY/[place] [address] Melanoma Discharge Disposition: Home Social History Tobacco Use Types Packs/Day Years Used Date Smoking Tobacco: Every Day Smokeless Tobacco: Never Tobacco Cessation:Ready to Q uit: Yes Comments:pack a day Sex and Gender Information Value Date Recorded Sex Assigned at Not on file Gender Identity Not on file Sexual Orientation Not on file documented as of this encounter Last Filed Vital Signs Vital Sign Reading Time Taken Comments Blood Pressure 130/80 10/19/2010 11:29 AM EDT Pulse 68 10/19/2010 11:29 AM EDT Temperature 36.7 ??C (98.1 ??F) 10/19/2010 1 1:29 AM EDT Respiratory Rate - - Oxygen Saturation 95% 10/19/2010 11: 29 AM EDT Inhaled Oxygen Concentration - - Weight 107.5 kg (236 lb 15.9 oz) 2010 11:29 AM EDT Height 175 cm (5' 8.9) 10/19/2010 11:2 9 AM EDT Body Mass Index 35.1 10/19/2010 11:29 AM EDT documented in this encounter Medications at Time of Discharge Medication Sig Dispensed Refills Start Date End Date aspirin 81 mg tablet Take 81 mg by mouth daily. 05/18/2016 terazosin (HYTRIN) 2 mg capsule Take 4 mg by mouth daily. 10/18/2010 12/25/2017 GLUCOSAMINE HCL/CHONDRO OKEEFE A (GLUCOSAMINE-CHONDROITIN ORAL) 07/13/2010 12/15/2016 documented as of this encounter Progress Notes * Marta Heath [place], TELEVISION ANCHOR - 10/19/2010 11:51 AM EDT Referring M.D.: Mustapha Lemos MD Primary Care Physician: Tr Ribera MD Melanoma Pathology Date of Biopsy: May 18 [...] are negative for metastatic disease. Mr. Fontaine was scheduled for a 3 month skin check today but due to a questionable liver lesion seen on outside CT and US, and MRI of the abdomen was performed today in follow up. Initially a CT guided [...] lobe of the liver consistent with hemangioma. No bloodwork was performed today but he says he had this done locally with his PCP. EXAM: General: Mr. Nolasco is a well developed, well nourished man in no acute distress. Skin: atypical target nevus on the back and atypical mole on the right upper arm. HEENT: NC/AT, PERRLA, EOMI. Neck: supple. Lymph nodes: negative. Chest: Clear to percussion and auscultation. or: Regular rhythm and rate. 1/6 holo systolic m Abdomen: Without palpable liver, spleen, kidneys or masses. Extremities: without clubbing, cyanosis. trace bilateral edema. Neurologic: Non-focal. Impression: Stage 1b melanoma Second primary MIS stage 0 ANA on exam, MRI of liver did not show evidence of malignancy. Plan: I discussed the imaging results with the couple and he will see us every [address] Lemos every 6 months do will be seen every 3 months for skin surveillence. We will obtain labwork and likely a repeat CT scan at that time. The patient has cancelled an appointment with Dr. Lemos and will reschedule for December. We are available as needed for questions or concerns at any time and Iwill forward a copy of the MRI report when available. documented in this encounter Miscellaneous Notes * Miscellaneous - Provider, Scanning - 10/25/2010 12:38 PM EDT documented in this encounter Plan of Treatment Upcoming Encounters Date Type Department Care Team (Late st Contact Info) Description 06/20/2024 10:00 AM EST Office Visit Dermatology at [place] [address] [place] [address] Mustapha Lemos MD [address] [facility] [place] [address] documented as of this encounter Visit Diagnoses Diagnosis Melanoma Melanoma of skin, site unspecified documented in this encounter Care Teams Cash Register Mechanic Relationship Specialty Start Date End Date Tr Ribera MD [address] [place] [address] PCP - General 03/22/10 05/23/17 documented as of this encounter
--- OUTSIDE RECORDS SUMMARY | 2023-11-13 09:26 | XMS_ITS | Encounter Summary ---
Author Organization [facility] Address [facility] [address] Care Team Providers Care Slot Editor Name Role Phone Tr Ribera MD Primary Care Provider [phone] Encounter Details Date Type Department Care Team (Latest Contact Info) Description 06/24/2010 12:36 PM EST - 06/24/2010 11:59 PM [facility] Hospital Encounter [place] [address] Jenna Maya MD [facility] [place] [address] Discharge Disposition: Home Social History Tobacco Use [...] 10:00 AM EST Office Visit Dermatology at [place] [address] [facility] [place] [phone] Mustapha Lemos MD [address] [facility] [place] [address] documented as of this encounter Visit Diagnoses Not on filedocumented in this encounter Care Teams Slot Editor Relationship Specialty Start Date End Date Tr Ribera MD [address] [place] [address] PCP - General 03/22/10 05/23/17 documented as of this encounter
--- OUTSIDE RECORDS SUMMARY | 2023-11-13 09:26 | XMS_ITS | Encounter Summary ---
[place] [address] Care Team Providers Care Marketing Programs Specialist Name Role Phone Tr Ribera MD Primary Care Provider [phone] Encounter Details Date Type Department Care Team (Late st Contact Info) Description 05/18/2010 1:15 PM EST Office Visit Dermatology [address] [place] [address] [address] [place], [place] [id number] Mustapha Lmeos MD [address] [place] [address] [place] [address] Social History Tobacco Use Types Packs/Day Years [...] 10:00 AM EST Office Visit Dermatology at [address] [address] Mustapha Lemos MD [address] [facility] [place] [address] documented as of this encounter Visit Diagnoses Not on filedocumented in this encounter Care Teams Marketing Programs Specialist Relationship Specialty Start Date End Date Tr Ribera MD [address] [place], [place] [id number] PCP - General 03/22/10 05/23/17 documented as of this encounter
[2023-11-15 13:31] VITALS: BP 100/50; PULSE 66
[2023-11-20 09:07] VITALS: BP 113/56; PULSE 52
[2023-11-22 09:00] VITALS: BP 112/58; PULSE 55
[2023-11-27 09:00] VITALS: BP 117/55; PULSE 50
== END 2023-11-28 23:59 | disposition home or self-care (01) ==
LOC: CR 09:00
PROVIDERS: PCP Family Medicine; Visit Provider Internal Medicine Cardiovascular Disease
DX: R69 Illness, unspecified (principal)

== ENCOUNTER 2023-12-27 08:59 | Outpatient (RCR) | payer SELFPAY ==
[2023-11-29 00:25] VITALS: BP 120/60; PULSE 54
[2023-12-04 09:19] VITALS: BP 108/61; PULSE 53
[2023-12-06 10:22] VITALS: BP 105/58; PULSE 54
[2023-12-11 09:20] VITALS: BP 118/59; PULSE 50
[2023-12-13 09:08] VITALS: BP 109/58; PULSE 57
[2023-12-20 08:57] VITALS: BP 111/62; PULSE 59
[2023-12-25 09:09] VITALS: BP 100/58; PULSE 52
[2023-12-27 09:04] VITALS: BP 107/54; PULSE 54
== END 2023-12-29 23:59 | disposition home or self-care (01) ==
LOC: CR 08:59
PROVIDERS: PCP Family Medicine; Visit Provider Internal Medicine Cardiovascular Disease
DX: R69 Illness, unspecified (principal)

== ENCOUNTER 2024-01-24 08:56 | Outpatient (RCR) | payer SELFPAY ==
[2023-12-30 00:27] VITALS: BP 120/60; PULSE 54
[2024-01-03 09:15] VITALS: BP 112/56; PULSE 62; O2SAT 93
[2024-01-08 09:14] VITALS: BP 125/58; PULSE 57
[2024-01-10 09:25] VITALS: BP 141/57; PULSE 52
[2024-01-15 09:32] VITALS: BP 124/61; PULSE 58
[2024-01-17 09:25] VITALS: BP 107/49; PULSE 58
[2024-01-22 10:26] VITALS: BP 107/61; PULSE 50
[2024-01-24 09:00] VITALS: BP 115/60; PULSE 51
[2024-01-29 09:13] VITALS: BP 89/55; PULSE 53
--- NOTE | 2024-01-29 09:20 | NUR.NOTE ---
Addendum entered by Fadumo Scott 01/29/24 09:44: Called and Spoke with triage nurse KEVIN Bautista and relayed all info below. Original Note: Nursing Note: Patient noted to have low BP (89/55). Denied any dizziness, SOB or any other symptoms. 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 Noted he was slightly dizzy this am but this has resolved upon arrival to CR. Patient given 240 ml water and BP reassessed approx 10-15 minutes later and BP still noted to be 86/58. Patient noted he would like to go home and take it easy today Nursing instructed patient to increase fluid intake today and reassess BP 1-2 more times throughout the day with home BP cuff. S/S to seek care urgently instructed with patient. Patient also instructed to call PCP if BP's continued to remain low in the next few days (if he remained asymptomatic and to seek care urgently if he became symptomatic). Patient stated understanding and left ambulatory in no apparent distress.
== END 2024-01-28 23:59 | disposition home or self-care (01) ==
LOC: CR 08:56
PROVIDERS: PCP Family Medicine; Visit Provider Internal Medicine Cardiovascular Disease
DX: R69 Illness, unspecified (principal)

== ENCOUNTER 2024-02-28 09:00 | Outpatient (RCR) | payer SELFPAY ==
[2024-01-31 08:56] VITALS: BP 115/62; PULSE 51; O2SAT 96
[2024-02-05 09:06] VITALS: BP 108/59; PULSE 54
[2024-02-07 09:32] VITALS: BP 106/60; PULSE 52
[2024-02-12 09:15] VITALS: BP 120/55; PULSE 52
[2024-02-14 08:57] VITALS: BP 114/61; PULSE 51; O2SAT 96
[2024-02-19 10:16] VITALS: BP 126/58; PULSE 50
[2024-02-21 08:56] VITALS: BP 125/59; PULSE 50
[2024-02-26 09:02] VITALS: BP 134/65; PULSE 51
[2024-02-28 09:27] VITALS: BP 130/56; PULSE 52
== END 2024-02-28 23:59 | disposition home or self-care (01) ==
LOC: CR 09:00
PROVIDERS: PCP Family Medicine; Visit Provider Internal Medicine Cardiovascular Disease
DX: R69 Illness, unspecified (principal)

== ENCOUNTER 2024-03-20 08:47 | Outpatient (RCR) | payer SELFPAY ==
[2024-02-29 00:35] VITALS: BP 130/56; PULSE 52
[2024-03-04 09:05] VITALS: BP 113/61; PULSE 51
[2024-03-06 09:15] VITALS: BP 115/59; PULSE 55
[2024-03-11 08:54] VITALS: BP 104/62; PULSE 57
[2024-03-13 09:09] VITALS: BP 113/61; PULSE 53
[2024-03-18 09:37] VITALS: BP 124/61; PULSE 55
[2024-03-20 09:00] VITALS: BP 127/60; PULSE 56; O2SAT 96
== END 2024-03-29 23:59 | disposition home or self-care (01) ==
LOC: CR 08:47
PROVIDERS: PCP Family Medicine; Visit Provider Internal Medicine Cardiovascular Disease
DX: R69 Illness, unspecified (principal)

== ENCOUNTER 2024-04-29 08:56 | Outpatient (RCR) | payer SELFPAY ==
[2024-03-30 00:31] VITALS: BP 130/56; PULSE 52
[2024-04-03 08:41] VITALS: BP 113/66; PULSE 77
[2024-04-08 09:30] VITALS: BP 121/60; PULSE 64
[2024-04-10 12:24] VITALS: BP 126/68; PULSE 52
[2024-04-15 08:51] VITALS: BP 122/64; PULSE 67
[2024-04-24 08:56] VITALS: BP 132/63; PULSE 52; O2SAT 97
[2024-04-29 09:23] VITALS: BP 118/56; PULSE 58
== END 2024-04-29 23:59 | disposition home or self-care (01) ==
LOC: CR 08:56
PROVIDERS: PCP Family Medicine; Visit Provider Internal Medicine Cardiovascular Disease
DX: R69 Illness, unspecified (principal)

== ENCOUNTER → 2024-05-13 09:49 | Outpatient (BNVA) | payer MEDICARE, BC, SELFPAY | PROVIDERS: PCP Family Medicine; Referring Provider Family Medicine; Visit Provider Nurse Practitioner Gerontology | DX: N32.81 Overactive bladder (principal); N40.1 Benign prostatic hyperplasia with lower urinary tract symptoms | CPT/HCPCS: 51798; 99214 ==

== ENCOUNTER 2024-05-27 09:12 | Outpatient (RCR) | payer SELFPAY ==
[2024-04-30 00:13] VITALS: BP 130/56; PULSE 52
[2024-05-06 09:03] VITALS: BP 114/64; PULSE 52
[2024-05-08 08:57] VITALS: BP 125/59; PULSE 56
[2024-05-13 09:11] VITALS: BP 96/60; PULSE 68
[2024-05-15 09:33] VITALS: BP 113/54; PULSE 57
[2024-05-20 09:47] VITALS: BP 135/59; PULSE 54
[2024-05-22 09:07] VITALS: BP 121/64; PULSE 59
[2024-05-27 09:15] VITALS: BP 138/76; PULSE 55
== END 2024-05-30 23:59 | disposition home or self-care (01) ==
LOC: CR 09:12
PROVIDERS: PCP Family Medicine; Visit Provider Internal Medicine Cardiovascular Disease
DX: R69 Illness, unspecified (principal)

== ENCOUNTER 2024-06-26 08:48 | Outpatient (RCR) | payer SELFPAY ==
[2024-06-03 09:19] VITALS: BP 119/75; PULSE 53
[2024-06-05 08:59] VITALS: BP 141/65; PULSE 50
[2024-06-10 09:25] VITALS: BP 97/54; PULSE 57
[2024-06-17 09:23] VITALS: BP 131/76; PULSE 59
[2024-06-24 09:43] VITALS: BP 115/64; PULSE 54
[2024-06-26 08:49] VITALS: BP 114/61; PULSE 47
== END 2024-06-27 23:59 | disposition home or self-care (01) ==
LOC: CR 08:48
PROVIDERS: PCP Family Medicine; Visit Provider Internal Medicine Cardiovascular Disease
DX: R69 Illness, unspecified (principal)

== ENCOUNTER 2024-07-24 08:51 | Outpatient (RCR) | payer SELFPAY ==
[2024-06-28 00:20] VITALS: BP 114/61; PULSE 47
[2024-07-01 08:49] VITALS: BP 117/61; PULSE 50
[2024-07-08 09:35] VITALS: BP 159/66; PULSE 56
[2024-07-10 09:03] VITALS: BP 131/63; PULSE 55; O2SAT 97
[2024-07-15 09:32] VITALS: BP 116/65; PULSE 55
[2024-07-22 09:03] VITALS: BP 117/65; PULSE 51
[2024-07-24 09:08] VITALS: BP 124/64; PULSE 50; O2SAT 97
== END 2024-07-28 23:59 | disposition home or self-care (01) ==
LOC: CR 08:51
PROVIDERS: PCP Family Medicine; Visit Provider Internal Medicine Cardiovascular Disease
DX: R69 Illness, unspecified (principal)

== ENCOUNTER 2024-08-26 09:07 | Outpatient (RCR) | payer SELFPAY ==
[2024-07-29 00:09] VITALS: BP 114/61; PULSE 47
[2024-07-29 09:29] VITALS: BP 117/57; PULSE 52
[2024-08-05 09:03] VITALS: BP 113/57; PULSE 54
[2024-08-07 08:44] VITALS: BP 109/67; PULSE 86; O2SAT 99
[2024-08-12 09:41] VITALS: BP 117/63; PULSE 54
[2024-08-14 09:40] VITALS: BP 127/64; PULSE 44
[2024-08-19 09:12] VITALS: BP 106/62; PULSE 52
[2024-08-21 09:10] VITALS: BP 131/59; PULSE 50
[2024-08-26 09:10] VITALS: BP 101/55; PULSE 53
== END 2024-08-27 23:59 | disposition home or self-care (01) ==
LOC: CR 09:07
PROVIDERS: PCP Family Medicine; Visit Provider Internal Medicine Cardiovascular Disease
DX: R69 Illness, unspecified (principal)

== ENCOUNTER 2024-09-23 09:03 | Outpatient (RCR) | payer SELFPAY ==
[2024-08-28 00:17] VITALS: BP 114/61; PULSE 47
[2024-08-28 09:02] VITALS: BP 111/49; PULSE 52
[2024-09-02 09:33] VITALS: BP 118/58; PULSE 50
[2024-09-04 10:15] VITALS: BP 131/64; PULSE 54
[2024-09-09 09:46] VITALS: BP 109/60; PULSE 52
[2024-09-11 09:17] VITALS: BP 101/56; PULSE 50
[2024-09-16 10:19] VITALS: BP 125/61; PULSE 53
[2024-09-18 09:14] VITALS: BP 131/60; PULSE 53
[2024-09-23 09:08] VITALS: BP 117/63; PULSE 59
== END 2024-09-27 23:59 | disposition home or self-care (01) ==
LOC: CR 09:03
PROVIDERS: PCP Family Medicine; Visit Provider Internal Medicine Cardiovascular Disease
DX: R69 Illness, unspecified (principal)

== ENCOUNTER 2024-10-21 09:00 | Outpatient (RCR) | payer SELFPAY ==
[2024-09-28 00:22] VITALS: BP 114/61; PULSE 47
[2024-09-30 09:11] VITALS: BP 102/61; PULSE 63
[2024-10-02 09:12] VITALS: BP 114/59; PULSE 80
[2024-10-07 09:21] VITALS: BP 117/64; PULSE 51
[2024-10-09 09:37] VITALS: BP 106/61; PULSE 51
[2024-10-14 10:09] VITALS: BP 100/55; PULSE 59
[2024-10-21 09:18] VITALS: BP 113/62; PULSE 56
== END 2024-10-27 23:59 | disposition home or self-care (01) ==
LOC: CR 09:00
PROVIDERS: PCP Family Medicine; Visit Provider Internal Medicine Cardiovascular Disease
DX: R69 Illness, unspecified (principal)

== ENCOUNTER 2024-11-13 00:54 | Outpatient (CLI) | payer MEDICARE, BC, SELFPAY ==
--- NOTE | 2024-11-13 07:55 | DI.MRI_ITS ---
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 COMPARISON: No exams were available for comparison FINDINGS: VENTRICLES AND EXTRA AXIAL SPACES: Normal in size and morphology for the patient's age. The ventricles and sulci appears symmetric throughout the cerebrum. MIDLINE SHIFT: None. CEREBRAL PARENCHYMA: There is a small area of encephalomalacia in the right occipital lobe. There are few scattered foci of hyperintense signal seen on the T2 and FLAIR images in the white matter consistent with chronic microvascular ischemic disease. No space-occupying lesion identified. HEMORRHAGE: None. BRAINSTEM/CEREBELLUM: Normal. CALVARIUM: Normal. VISUALIZED PARANASAL SINUSES/MASTOIDS:Clear. [place]: Normal flow void. PITUITARY GLAND: Unremarkable. OTHER FINDINGS: None. IMPRESSION: 1. There is no evidence of an acute territorial infarct. 2. Small area of encephalomalacia involving the right occipital lobe. 3. Mild chronic microvascular ischemic disease. 4. The ventricular and sulcal size is symmetric throughout the cerebrum. DATA REPOSITORY:
== END 2024-11-13 01:14 ==
PROVIDERS: PCP Family Medicine; Visit Provider Family Medicine
DX: I67.89 Other cerebrovascular disease (principal); F03.90 Unspecified dementia, unspecified severity, without behavioral disturbance, psychotic disturbance, mood disturbance, and anxiety
CPT/HCPCS: 70551

== ENCOUNTER 2024-11-27 09:00 | Outpatient (RCR) | payer SELFPAY ==
[2024-10-28 00:22] VITALS: BP 113/62; PULSE 56
[2024-10-28 09:25] VITALS: BP 99/56; PULSE 56
[2024-10-30 09:08] VITALS: BP 117/59; PULSE 68; O2SAT 96
[2024-11-06 09:09] VITALS: BP 107/59; PULSE 56
[2024-11-11 09:18] VITALS: BP 113/61; PULSE 48
[2024-11-18 09:13] VITALS: BP 112/61; PULSE 53
[2024-11-20 09:16] VITALS: BP 103/53; PULSE 42
[2024-11-25 09:20] VITALS: BP 115/60; PULSE 51
[2024-11-27 09:21] VITALS: BP 113/61; PULSE 51
== END 2024-11-27 23:59 | disposition home or self-care (01) ==
LOC: CR 09:00
PROVIDERS: PCP Family Medicine; Visit Provider Internal Medicine Cardiovascular Disease
DX: R69 Illness, unspecified (principal)

== ENCOUNTER 2024-12-18 16:15 | Outpatient (CLI) | payer MEDICARE, BC, SELFPAY ==
[2024-12-18 16:42] LABS: ALT 25 U/L (16-63); AST 18 U/L (15-37); Albumin 3.6 g/dL (3.4-5.0); Alkaline Phosphatase 67 U/L (46-116); Anion Gap 8.2 mmol/L (3-11); BUN 27 mg/dL (7-18); Bilirubin, Total 0.8 mg/dL (0.2-1.0); CO2 27.8 mmol/L (21.0-32.0); Calcium 8.6 mg/dL (8.5-10.1); Chloride 104 mmol/L (98-107); Estimated GFR 86.88 (mL/min/1.73m2); Glucose 99 mg/dL (74-106); Potassium 4.0 mmol/L (3.5-5.1); Sodium 140 mmol/L (136-145); Total Protein 6.4 g/dL (6.4-8.2)
[2024-12-18 17:08] LABS: TSH (W/Ref FT4) 2.48 uIU/mL (0.36-3.74); Vitamin B12 497 pg/mL (193-986)
== END 2024-12-18 16:16 | disposition home or self-care (01) ==
LOC: LBO 16:15
PROVIDERS: PCP Family Medicine; Visit Provider Nurse Practitioner Adult Health
DX: E78.5 Hyperlipidemia, unspecified (principal); F03.90 Unspecified dementia, unspecified severity, without behavioral disturbance, psychotic disturbance, mood disturbance, and anxiety; I10 Essential (primary) hypertension
CPT/HCPCS: 99203; 36415; 80053; 99215; 82607; 84443

== ENCOUNTER 2024-12-25 09:00 | Outpatient (RCR) | payer SELFPAY ==
[2024-11-28 00:22] VITALS: BP 113/61; PULSE 51
[2024-12-02 09:10] VITALS: BP 115/59; PULSE 51
[2024-12-04 09:40] VITALS: BP 112/61; PULSE 45
[2024-12-11 09:16] VITALS: BP 107/61; PULSE 54
[2024-12-16 09:34] VITALS: BP 129/62; PULSE 47
[2024-12-18 09:02] VITALS: BP 104/62; PULSE 59
[2024-12-23 09:19] VITALS: BP 126/61; PULSE 49
[2024-12-25 09:02] VITALS: BP 115/65; PULSE 51
== END 2024-12-28 23:59 | disposition home or self-care (01) ==
LOC: CR 09:00
PROVIDERS: PCP Family Medicine; Visit Provider Internal Medicine Cardiovascular Disease
DX: R69 Illness, unspecified (principal)

== ENCOUNTER 2025-01-05 08:29 | Outpatient (CLI) | payer MEDICARE, BC, SELFPAY ==
--- NOTE | 2025-01-05 08:15 | RT.EKG_ITS ---
APPROVED REPORT Exam: Resting ECG Reason for Exam: evaluate cardiac status Patient Location: O HR:40 bpm ECG Measurements Heart Rate 40 AXIS WI 175 P 24 QRSd 161 QRS -2 QT 503 T 36 QTc 411 Conclusion Sinus bradycardia...rate< 50 Left bundle branch block...QRSd>120, broad/notched R
== END 2025-01-05 08:30 | disposition home or self-care (01) ==
LOC: DI.CARD 08:30
PROVIDERS: PCP Family Medicine; Visit Provider Registered Nurse
DX: I25.5 Ischemic cardiomyopathy (principal); I10 Essential (primary) hypertension; I44.7 Left bundle-branch block, unspecified; E78.5 Hyperlipidemia, unspecified
CPT/HCPCS: 93010

== ENCOUNTER → 2025-01-05 08:50 | Outpatient (BNVA) | payer MEDICARE, BC, SELFPAY | PROVIDERS: PCP Family Medicine; Visit Provider Registered Nurse | DX: I25.10 Atherosclerotic heart disease of native coronary artery without angina pectoris (principal); I25.5 Ischemic cardiomyopathy; I10 Essential (primary) hypertension; I44.7 Left bundle-branch block, unspecified; E78.5 Hyperlipidemia, unspecified; I71.40 Abdominal aortic aneurysm, without rupture, unspecified | CPT/HCPCS: 99214; 93005 ==

== ENCOUNTER 2025-01-27 09:00 | Outpatient (RCR) | payer SELFPAY ==
[2024-12-30 09:32] VITALS: BP 105/54; PULSE 44
[2025-01-01 09:24] VITALS: BP 120/59; PULSE 42
[2025-01-06 09:18] VITALS: BP 109/58; PULSE 41
[2025-01-08 09:23] VITALS: BP 122/62; PULSE 43
[2025-01-13 10:39] VITALS: BP 114/60; PULSE 43
[2025-01-20 09:09] VITALS: BP 113/67; PULSE 48
[2025-01-22 08:59] VITALS: BP 116/60; PULSE 42
[2025-01-27 09:11] VITALS: BP 111/62; PULSE 52
== END 2025-01-27 23:59 | disposition home or self-care (01) ==
LOC: CR 09:00
PROVIDERS: PCP Family Medicine; Visit Provider Internal Medicine Cardiovascular Disease
DX: R69 Illness, unspecified (principal)

== ENCOUNTER 2025-02-26 09:00 | Outpatient (RCR) | payer SELFPAY ==
[2025-01-28 00:09] VITALS: BP 111/62; PULSE 52
[2025-01-29 10:10] VITALS: BP 126/61; PULSE 40
[2025-02-03 09:09] VITALS: BP 102/48; PULSE 40
[2025-02-10 09:24] VITALS: BP 96/53; PULSE 43
[2025-02-12 09:00] VITALS: BP 97/56; PULSE 45
[2025-02-17 09:05] VITALS: BP 96/54; PULSE 42
[2025-02-24 09:19] VITALS: BP 103/55; PULSE 46
[2025-02-26 09:09] VITALS: BP 125/60; PULSE 42; O2SAT 97
== END 2025-02-27 23:59 | disposition home or self-care (01) ==
LOC: CR 09:00
PROVIDERS: PCP Family Medicine; Visit Provider Internal Medicine Cardiovascular Disease
DX: R69 Illness, unspecified (principal)

== ENCOUNTER 2025-03-24 09:00 | Outpatient (RCR) | payer SELFPAY ==
[2025-02-28 00:05] VITALS: BP 125/60; PULSE 42
[2025-03-03 09:15] VITALS: BP 147/62; PULSE 42
--- NOTE | 2025-03-03 09:30 | RT.EKG_ITS ---
APPROVED REPORT Exam: Resting ECG Reason for Exam: Pt. c/o chest pressure. Patient Location: O HR:49 bpm ECG Measurements Heart Rate 49 AXIS SD 172 P 28 QRSd 158 QRS 111 QT 477 T -43 QTc 431 Conclusion Sinus bradycardia...rate< 50 LBBB
--- NOTE | 2025-03-03 11:05 | NUR.NOTE ---
Nursing Note: At approximately 0935 on 03/03/2025, pt. came in the nurses' office and approached Jeannie Alves CPT to request a recheck of his blood pressure (BP). Pt. and CPT went out to the vital sign (VS) machines, pt. sat in a chair, and CPT obtained pt.'s VS. Pt.'s resting BP was 147/62; HR was 42. Pt.'s s/p exercise BP was 149/68. Pt. notified CPT that he was experiencing some left sided chest pressure. CPT came and informed this RN and this RN came and assessed the pt. This RN determined that an EKG would be the next best course of action, placed an order for one, and then brought the pt. to a private room to perform the EKG. While this RN was performing the EKG, this RN continued their assessment of the pt. Pt. stated that the chest pressure was a 2/10 in his left upper chest and denied any radiation of the pain to his back, shoulder, down his arm/hand, or in to his neck/jaw. Pt. denied any nausea/vomiting. Pt. denied any dizziness/lightheadedness. Pt. stated that the chest pressure had started as he was finishing up exercising on the treadmill, but that he continued on to exercise on the rower, before coming over to staff due to his chest pressure. Pt. was instructed to inform staff as soon as his chest pressure happens, if it happens again, instead of continuing to exercise. Pt. stated that at worst, his chest pressure was between a 3-4/10. EKG finished and showed sinus bradycardia w/ non-specific intraventricular conduction delay w/ anterior infarct old w/ repolarization abnormalities suggestive of ischemia in the inferior leads; ST depression and T wave inversion (II, III, and aVF). Pt. was brought back to the CR gym and was instructed to sit with the CPT. By the time the pt. was back in the CR gym, pt. stated that his chest pressure had almost resolved, stating that it was 0.5-1/10. This RN obtained a copy of the pt.'s most recent EKG from 01/05/2025 and noted that there were changes from the previous EKG to the current EKG. This RN then went to Dr. Mcduffie, showed her both the current and previous EKG's, informed her of the pt.'s situation, informed her that the pt. didn't have any nitroglycerin with him, and asked her what her interpretation of the EKG was and what the next best course of action should be. Per Dr. Mcduffie, the pt. has a left bundle branch block (LBBB) and therefore it is difficult to determine if there are any significant changes. Per Dr. Mcduffie, because the pt.'s chest pressure had almost resolved, she stated Well then, it's done. This RN clarified if that meant that the pt. was safe to go home and Dr. Mcduffie stated that it was. This RN then went back to the CR gym and spoke with the pt. Pt. stated that his chest pressure had resolved. This RN notified the pt. that Dr. Mcduffie didn't feel the need for the pt. to stay and that it was safe for him to go home. This RN did instruct the pt. to call his PCP today though, to notify them of the situation that had occurred, and to discuss the possibility of obtaining a prescription for nitroglycerin. RN also instructed the pt. to go to the ED should his chest pressure return today, especially since he doesn't have a prescription for nitroglycerin. Pt. verbalized understanding and stated that he would do so. Pt. left the CR gym ambulatory in no apparent distress.
[2025-03-05 09:38] VITALS: BP 100/62; PULSE 48
[2025-03-10 09:13] VITALS: BP 105/60; PULSE 42
[2025-03-12 09:17] VITALS: BP 116/62; PULSE 45
[2025-03-17 09:17] VITALS: BP 107/62; PULSE 41
[2025-03-19 09:31] VITALS: BP 126/62; PULSE 39
[2025-03-24 09:36] VITALS: BP 124/63; PULSE 52
== END 2025-03-29 23:59 | disposition home or self-care (01) ==
LOC: CR 09:00
PROVIDERS: PCP Family Medicine; Visit Provider Internal Medicine Cardiovascular Disease
DX: R69 Illness, unspecified (principal)

== ENCOUNTER 2025-04-21 09:00 | Outpatient (RCR) | payer SELFPAY ==
[2025-03-30 00:15] VITALS: BP 124/63; PULSE 52
[2025-03-31 10:23] VITALS: BP 130/59; PULSE 46
[2025-04-02 09:36] VITALS: BP 124/63; PULSE 51
[2025-04-07 09:29] VITALS: BP 128/72; PULSE 49
[2025-04-09 09:10] VITALS: BP 108/59; PULSE 55
[2025-04-14 09:02] VITALS: BP 122/57; PULSE 48
[2025-04-16 09:25] VITALS: BP 130/59; PULSE 54
[2025-04-21 09:37] VITALS: BP 118/60; PULSE 59
== END 2025-04-29 23:59 | disposition home or self-care (01) ==
LOC: CR 09:00
PROVIDERS: PCP Family Medicine; Visit Provider Internal Medicine Cardiovascular Disease
DX: R69 Illness, unspecified (principal)